=== PATIENT | female | born 1990 | race Two or more races ===

== ENCOUNTER → 2020-06-02 09:12 | Outpatient (BNVA) | payer MEDICAID, SELFPAY | PROVIDERS: Visit Provider Physician Assistant | DX: E66.01 Morbid (severe) obesity due to excess calories (principal); Z68.42 Body mass index [BMI] 45.0-49.9, adult; G47.33 Obstructive sleep apnea (adult) (pediatric) | CPT/HCPCS: 99214; Q3014 ==

== ENCOUNTER → 2020-06-15 09:37 | Outpatient (BNVA) | payer MEDICAID, SELFPAY | PROVIDERS: Visit Provider Physician Assistant | DX: E66.01 Morbid (severe) obesity due to excess calories (principal); D64.9 Anemia, unspecified | CPT/HCPCS: 99213 ==

== ENCOUNTER → 2020-08-11 11:18 | Outpatient (BNVA) | payer MEDICAID, SELFPAY | PROVIDERS: PCP Nurse Practitioner Primary Care; Referring Provider Nurse Practitioner Primary Care; Visit Provider Surgery Vascular Surgery | DX: I83.12 Varicose veins of left lower extremity with inflammation (principal) | CPT/HCPCS: 99202 ==

== ENCOUNTER 2020-09-05 14:58 | Emergency (ER) | payer MEDICAID, SELFPAY ==
[2020-09-05 16:13] VITALS: BP 141/111; PULSE 87; RESP 20; TEMP 36.6; O2SAT 99; BMI 43.9
--- NOTE | 2020-09-05 16:48 | XR_ITS ---
EXAMINATION: XR CHEST CLINICAL INFORMATION: Cough. Covid exposure. COMPARISON: Previous chest x-ray most recent January 2019 TECHNIQUE: Frontal view of the chest was obtained. FINDINGS: The cardiac and mediastinal contours are normal. The lung volumes are low. The lungs are clear. There is no pleural effusion or pneumothorax. Bony structures are unremarkable. XR/XR chest 1V IMPRESSION: Low lung volumes. No evidence of pneumonia.
--- NOTE | 2020-09-05 16:53 | ED_ITS ---
HPI - General Adult General Chief complaint: Upper Respiratory Symptoms Stated complaint: cough,covid symptoms Time Seen by Provider: 09/05/20 16:15 Source: patient Mode of arrival: ambulatory History of Present Illness HPI narrative: Patient comes emergency room complaining of flu-like symptoms, body aches, chills, subjective fever. Patient states that she has known exposure to COVID-19 patients. All her symptoms have been ongoing for 3 days, complaining of cough, no shortness of breath MD complaint: Flu-like symptoms Related Data Home Medications Medication Instructions Recorded Confirmed acetaminophen 500 mg tablet 500 mg PO QID PRN 06/01/20 06/15/20 albuterol sulfate 90 mcg/actuation 1 inh INHALATION QID 06/01/20 06/15/20 aerosol inhaler azelastine 0.15 % (205.5 mcg) 1 spray INTRANASAL BID 06/01/20 06/15/20 nasal spray cholecalciferol (vitamin D3) 25 25 mcg PO DAILY 06/01/20 06/15/20 mcg (1,000 unit) capsule diphenhydramine HCl 25 mg tablet 25 mg PO BEDTIME 06/01/20 06/15/20 famotidine 40 mg tablet 40 mg PO DAILY 06/01/20 06/15/20 fluoxetine 40 mg capsule 40 mg PO DAILY 06/01/20 06/15/20 fluticasone propionate 100 1 inh INHALATION Q12H 06/01/20 06/15/20 mcg/actuation blister powder for inhalation ipratropium bromide 0.03 % nasal 2 spray INTRANASAL BID 06/01/20 06/15/20 spray levothyroxine 200 mcg capsule 200 mcg PO DAILY 06/01/20 06/15/20 loratadine 10 mg capsule 10 mg PO DAILY 06/01/20 06/15/20 mecobalamin (vitamin B12) 1,000 1,000 mcg PO DAILY 06/01/20 06/15/20 mcg chewable tablet montelukast 10 mg tablet 10 mg PO BEDTIME 06/01/20 06/15/20 omeprazole 20 mg capsule,delayed 20 mg PO DAILY 06/01/20 06/15/20 release psyllium 1 packet PO TID 06/01/20 06/15/20 risperidone 3 mg tablet 3 mg PO DAILY 06/01/20 06/15/20 trazodone 100 mg tablet 100 mg PO DAILY 06/01/20 06/15/20 Previous Rx's Medication Instructions Recorded iron,carbonyl 65 mg-vitamin C 125 1 tab PO DAILY #60 tab 07/07/20 mg tablet,delayed release iron,carbonyl 65 mg-vitamin C 125 1 tab PO DAILY #60 tab 07/15/20 mg tablet,delayed release ondansetron HCl [Zofran] 4 mg PO Q6H PRN #14 tab 09/05/20 Allergies Allergy/AdvReac Type Severity Reaction Status Date / Time Pt states no known allergy to Allergy Unknown Unknown Uncoded 08/11/20 11:30 Review of Systems Review of Systems: Constitutional : Complaining of chills, subjective fever ENT/Mouth : No Hearing loss, No Ear Pain, No Nasal Congestion, No Sinus Pain, No Hoarseness, No sore throat, No Rhinorrhea, No Swallowing Difficulty Eyes: No Eye Pain, No Swelling, No Redness, No Foreign Body, No Discharge, No Vision Changes Cardiovascular : No Chest Pain, No SOB, No Dyspnea on Exertion, No Orthopnea, No Edema, No Palpitations Respiratory : Complaining of dry Cough, No Sputum, No Wheezing, No Smoke Exposure, No Dyspnea Gastrointestinal : Complaining of nausea with no Vomiting, No Diarrhea, No Constipation, No abdominal Pain, No Hematochezia, No Melena Genitourinary : no irregular bleeding, No Dysuria, No Urinary Frequency, No Hematuria, No Urinary Incontinence, No Urgency, No Flank Pain, No Urinary Flow Changes, No Hesitancy Musculoskeletal : No joint pain, complaining of generalized Myalgias, No Joint Swelling Skin : No Skin Lesions, No rash Neuro : No Weakness, No Numbness, No Paresthesias, No Loss of Consciousness, No Dizziness, No Headache Psych : No Anxiety/Panic, No Depression, No SI/HI/AH/VH, No Social Issues, Heme/Lymph: No Bruising, No Bleeding,No Lymphadenopathy Endocrine : No Polyuria, No Polydipsia, No Temperature Intolerance PMFSH Past Medical History Medical History ADHD Depression Hypothyroid Morbid obesity Obstructive sleep apnea Rheumatoid arthritis Varicose veins of bilateral lower extremities with other complications Surgical History H/O prior ablation treatment (~2018) History of vein stripping (~2018) Hx of thyroidectomy Family History Family History Father No problems noted. Mother No problems noted. Brother No problems noted. Brother No problems noted. Brother No problems noted. Social History Social History Alcohol intake: unknown Smoking Status: Never smoker Advance Directives: No Advance Directives Information Provided: No Physical Exam Vital Signs: Vital Signs: Last Vital Signs Temp 97.9 F 09/05/20 16:13 Pulse 87 09/05/20 16:13 Resp 20 09/05/20 16:13 BP 141/111 H 09/05/20 16:13 Pulse Ox 99 09/05/20 16:13 Body Mass Index 43.9 Appearance: Alert. Oriented X3. No acute distress. Eyes: Pupils equal, round and reactive to light. ENT: Pharynx normal. Neck: Normal inspection. Neck supple. No lymph nodes noted. No crepitus CVS: Normal heart rate and rhythm. Pulses normal. Normal S1 and S2 Respiratory: No respiratory distress. Breath sounds normal. No Wheezing. No rales Abdomen: Soft and nontender. No rigidity. No distention. good BS x4 Skin: Skin warm and dry. Normal skin color. Normal skin turgor. Extremities: No lower extremity edema. No lower extremity edema. No Lacerations. No Rash Neuro: Oriented X 3. No motor deficit. No sensory deficit. Moving all extermities. No slurred speech. Course Course Course Narrative: I discussed with the patient that she tested positive for COVID-19. Patient will be discharged home. Patient states that she does not need a work excuse. Patient instructed to stay at home for 14 days and self- isolation Medical Decision Making Lab Data Labs: Lab Results 09/05/20 Range/Units 17:07 Coronavirus (PCR) POSITIVE A (Negative) Influenza Type A (PCR) NEGATIVE (Negative) Influenza Type B (PCR) NEGATIVE (Negative) RSV RNA Qual (PCR) NEGATIVE (Negative) Imaging Data Chest x-ray: Radiologist's impression: The cardiac and mediastinal contours are normal. The lung volumes are low. The lungs are clear. There is no pleural effusion or pneumothorax. Bony structures are unremarkable. XR/XR chest 1V IMPRESSION: Low lung volumes. No evidence of pneumonia. Discharge Plan Discharge Clinical Impression: COVID-19 Patient Disposition: Home, Self-Care Instructions: COVID-19 (Coronavirus Disease 2019) (ED) Additional Instructions: If you have any worsening shortness of breath, any new symptoms, please return to the emergency room or call 911. You need to stay self isolated for 14 days. Please follow-up with your primary care physician. Prescriptions: New ondansetron HCl [Zofran] 4 mg tablet 4 mg PO Q6H PRN (Reason: nausea and vomiting) Qty: 14 RF: 0 No Action iron,carbonyl-vitamin C [Vitron-C] 65 mg iron- 125 mg tablet,delayed release (DR/EC) 1 tab PO DAILY Qty: 60 RF: 1 iron,carbonyl-vitamin C [Vitron-C] 65 mg iron- 125 mg tablet,delayed release (DR/EC) 1 tab PO DAILY Qty: 60 RF: 6 fluoxetine 40 mg capsule 40 mg PO DAILY RF: 0 trazodone 100 mg tablet 100 mg PO DAILY RF: 0 risperidone 3 mg tablet 3 mg PO DAILY RF: 0 Flovent Diskus 100 mcg/actuation blister with device 1 inh inhalation Q12H RF: 0 ipratropium bromide 0.03 % spray,non-aerosol 2 spray intranasal BID RF: 0 omeprazole 20 mg capsule,delayed release(DR/EC) 20 mg PO DAILY RF: 0 azelastine 0.15 % (205.5 mcg) spray,non-aerosol 1 spray intranasal BID RF: 0 diphenhydramine HCl [Benadryl Allergy] 25 mg tablet 25 mg PO BEDTIME RF: 0 famotidine 40 mg tablet 40 mg PO DAILY RF: 0 loratadine 10 mg capsule 10 mg PO DAILY RF: 0 psyllium Packet 1 packet PO TID RF: 0 albuterol sulfate [ProAir HFA] 90 mcg/actuation HFA aerosol inhaler 1 inh inhalation QID RF: 0 montelukast [Singulair] 10 mg tablet 10 mg PO BEDTIME RF: 0 acetaminophen [Tylenol Extra Strength] 500 mg tablet 500 mg PO QID PRNRF: 0 mecobalamin (vitamin B12) 1,000 mcg tablet,chewable 1,000 mcg PO DAILY RF: 0 cholecalciferol (vitamin D3) 25 mcg (1,000 unit) capsule 25 mcg PO DAILY RF: 0 Tirosint 200 mcg capsule 200 mcg PO DAILY RF: 0
[2020-09-05] MEDS: ondansetron HCL 4 MG/2 ML VIAL IVPUSH (17:26)
[2020-09-05] MEDS: 0.9 % Sodium Chloride 1,000 ML 999 ML IVCONT (17:26)
[2020-09-05 18:10] LABS: Influenza A PCR NEGATIVE (Negative); Influenza B PCR NEGATIVE (Negative); Resp Syncy Virus RNA Qual PCR NEGATIVE (Negative); SARS COV2 PCR INHOUSE POSITIVE (Negative)
== END 2020-09-05 19:05 | disposition home or self-care (01) ==
PROVIDERS: Emergency Provider Emergency Medicine; PCP Nurse Practitioner Primary Care
DX: U07.1 COVID-19 (principal)
CPT/HCPCS: 0241U; 36415; 71045; 96361; 96374; 99283; 99284; J2405

== ENCOUNTER → 2020-09-20 15:23 | Outpatient (BNVA) | payer MEDICAID, SELFPAY | PROVIDERS: PCP Nurse Practitioner Primary Care; Visit Provider Nurse Practitioner Family ==

== ENCOUNTER → 2020-10-12 09:16 | Outpatient (BNVA) | payer MEDICAID, SELFPAY | PROVIDERS: Visit Provider Nurse Practitioner Gerontology ==

== ENCOUNTER → 2020-10-18 14:57 | Outpatient (BNVA) | payer MEDICAID, SELFPAY | PROVIDERS: Visit Provider Nurse Practitioner Family ==

== ENCOUNTER 2020-10-26 15:48 | Emergency (ER) | payer MEDICAID, SELFPAY ==
[2020-10-26 18:02] VITALS: BP 120/65; PULSE 98; RESP 16; TEMP 36.9; O2SAT 100; BMI 43.5
--- NOTE | 2020-10-26 18:23 | ED_ITS ---
HPI - General Adult General Chief complaint: Extremity Injury, Lower Stated complaint: redness on leg (varicose veins) Time Seen by Provider: 10/26/20 18:04 Source: patient Mode of arrival: ambulatory Limitations: no limitations History of Present Illness HPI narrative: 30 yo female with past medical history of hypothyroidism, anemia, morbid obesity, RA, COLLETTE, ADHD, depression, varicose veins here with complaints o f right leg erythema, burning and warmth x 48hrs. No fevers, chills. No injury or trauma. No pain in the calf. No shortness of breath or chest pain. Related Data Home Medications Medication Instructions Recorded Confirmed acetaminophen 500 mg tablet 500 mg PO QID PRN 06/01/20 09/20/20 albuterol sulfate 90 mcg/actuation 1 inh INHALATION QID 06/01/20 09/20/20 aerosol inhaler azelastine 0.15 % (205.5 mcg) 1 spray INTRANASAL BID 06/01/20 09/20/20 nasal spray diphenhydramine HCl 25 mg tablet 25 mg PO BEDTIME 06/01/20 09/20/20 famotidine 40 mg tablet 40 mg PO DAILY 06/01/20 09/20/20 fluoxetine 40 mg capsule 40 mg PO DAILY 06/01/20 09/20/20 fluticasone propionate 100 1 inh INHALATION Q12H 06/01/20 09/20/20 mcg/actuation blister powder for inhalation ipratropium bromide 0.03 % nasal 2 spray INTRANASAL BID 06/01/20 09/20/20 spray loratadine 10 mg capsule 10 mg PO DAILY 06/01/20 09/20/20 mecobalamin (vitamin B12) 1,000 1,000 mcg PO DAILY 06/01/20 09/20/20 mcg chewable tablet montelukast 10 mg tablet 10 mg PO BEDTIME 06/01/20 09/20/20 omeprazole 20 mg capsule,delayed 20 mg PO DAILY 06/01/20 06/15/20 release psyllium 1 packet PO TID 06/01/20 09/20/20 risperidone 3 mg tablet 3 mg PO DAILY 06/01/20 09/20/20 trazodone 100 mg tablet 100 mg PO DAILY 06/01/20 09/20/20 Previous Rx's Medication Instructions Recorded iron,carbonyl 65 mg-vitamin C 125 1 tab PO DAILY #60 tab 07/15/20 mg tablet,delayed release ondansetron HCl [Zofran] 4 mg PO Q6H PRN #14 tab 09/05/20 Tirosint 200 mcg capsule 200 mcg PO DAILY #30 cap NS 10/05/20 cholecalciferol (vitamin D3) 25 25 mcg PO DAILY #30 cap 10/07/20 mcg (1,000 unit) capsule Tirosint 50 mcg capsule 50 mcg PO DAILY 30 Days #30 cap NS 10/12/20 linaclotide 145 mcg capsule 145 mcg PO DAILY #30 cap 10/18/20 doxycycline monohydrate 100 mg PO BID #14 cap 10/26/20 Allergies Allergy/AdvReac Type Severity Reaction Status Date / Time No Known Allergies Allergy Verified 10/26/20 18:09 Review of Systems Review of Systems: Yes all other systems are reviewed and are negative Constitutional: Constitutional: Reports no additional constitutional complaints, Denies body ache(s), Denies chills, Denies fever(s), Denies headache(s) and Denies weakness Eyes: Eyes: Reports no additional eye complaints and Denies change in vision ENT: Reports system reviewed and no additional complaints, except as documented, Denies dizziness, Denies headache(s), Denies nasal congestion, Denies nasal discharge and Denies neck pain Cardiovascular: Cardiovascular: Reports no additional cardiovascular complaints, Denies chest pain, Denies leg edema and Denies dyspnea Respiratory: Respiratory: Reports no additional respiratory complaints, Denies cough and Denies dyspnea Gastrointestinal: Gastrointestinal: Reports no additional gastrointestinal complaints, Denies abdominal pain, Denies diarrhea, Denies nausea and Denies vomiting Genitourinary: Genitourinary: Reports no additional female genitourinary complaints and Denies urinary incontinence Musculoskeletal: Musculoskeletal: Reports no additional musculoskeletal complaints, Denies back pain, Denies arthralgias, Denies joint swelling, Denies neck pain, Denies numbness and Denies tingling Integumentary/Breasts: Skin/Breast: Reports system reviewed and no additional complaints, except as docu, Reports swelling, Reports erythema and Denies rash Neurologic: Reports system reviewed and no additional complaints, except as documented, Denies Abnormal speech present, Denies dizziness, Denies headache(s), Denies numbness, Denies tingling and Denies weakness PMFSH Past Medical History Attestation statement: The following information was validated with the patient. Source: old records reviewed and nursing notes reviewed Medical History ADHD Constipation Depression Elevated liver enzymes Hypothyroid Morbid obesity Obstructive sleep apnea Post-surgical hypothyroidism Rheumatoid arthritis Varicose veins of bilateral lower extremities with other complications Surgical History H/O prior ablation treatment (~2017) History of vein stripping (~2017) Hx of thyroidectomy Family History Family History Father No problems noted. Mother No problems noted. Brother No problems noted. Brother No problems noted. Brother No problems noted. Social History Social History Household Members: Family Alcohol intake: never Smoking Status: Never smoker Smoked in Last 30 Days: No Use of substances other than those prescribed or required for medical reasons: No Any prior treatment program specific to substance use: No Advance Directives: No Advance Directives Information Provided: Yes Current occupational status: unemployed Physical Exam Vital Signs: Vital Signs: Last Vital Signs Temp 98.5 F 10/26/20 18:02 Pulse 98 10/26/20 18:02 Resp 16 10/26/20 18:02 BP 120/65 10/26/20 18:02 Pulse Ox 100 10/26/20 18:02 Body Mass Index 43.5 Const: General: cooperative, healthy appearing, comfortable and no acute distress Orientation/consciousness: patient oriented x3 Limitations: no l imitations HENMT: Head: Yes normal to inspection Ears: hearing grossly normal bilaterally General nose exam: Normal external nose present Face and sinus: Yes normal facial exam Mouth: Normal oral and palatal mucosa present Throat: Yes posterior oropharynx normal Eyes: General: appearance normal, both eyes and all related structures Pupils: Equal, round and reactive pupils present Neck: Neck: Yes normal visual inspection Chest: Chest palpation & inspection: normal inspection of the chest Resp: Effort & Inspection: normal respiratory effort Auscultation: clear to auscultation bilaterally Cardio: Rate: regular rate Rhythm: regular rhythm Peripheral pulses: Peripheral pulses 2+ throughout GI: Inspection: Yes normal to inspection Palpation (GI): Soft to palpation and nontender Auscultation: normal bowel sounds Back/Spine/Pelvis: Thoracic/Lumbar Spine: thoracic and lumbar spine normal to inspection Skin: Other: To the right distal lower extremity there is a area of erythema and warmth which is not circumferential. There is no open wound or perforation noted. There is some warmth over the site. No calf pain or tenderness or swelling. Distal pulses noted General skin exam: no rashes or lesions noted Neuro: General: patient oriented x3, no focal motor deficits and normal sensation to monofilament Cranial nerves: Yes Equal, round and reactive pupils present Cognition (Neuro): normal cognition Speech: No Abnormal speech present Gait exam (Neuro): Normal gait present Motor exam (neuro): 5/5 motor strength present throughout Extrem: General: Yes normal to inspection Course Course Course Narrative: Patient has what appears to be in early cellulitis the right lower extremity. No systemic signs or symptoms of infection. She also has varicose veins which are chronic for her. I did recommend that she follow up with Dr. Scott who she has seen before for this. Reviewed worrisome signs and symptoms and when to return to the emergency department. Comfortable discharge home. Discharge Plan Discharge Clinical Impression: Cellulitis Qualifiers: Site of cellulitis: extremity Site of cellulitis of extremity: lower extremity Laterality: right Qualified Code(s): L03.115 - Cellulitis of right lower limb Patient Disposition: Home, Self-Care Instructions: Cellulitis (ED) Additional Instructions: Buy compression stockings and where them every day Elevate your extremities Follow-up with Dr Razo as discussed Return for increasing redness, fever >100.4 Prescriptions: New doxycycline monohydrate 100 mg capsule 100 mg PO BID Qty: 14 RF: 0 No Action iron,carbonyl-vitamin C [Vitron-C] 65 mg iron- 125 mg tablet,delayed release (DR/EC) 1 tab PO DAILY Qty: 60 RF: 6 levothyroxine [Tirosint] 200 mcg capsule 200 mcg PO DAILY Qty: 30 RF: 6 cholecalciferol (vitamin D3) [Vitamin D3] 25 mcg (1,000 unit) capsule 25 mcg PO DAILY Qty: 30 RF: 6 levothyroxine [Tirosint] 50 mcg capsule 50 mcg PO DAILY 30 Days Qty: 30 RF: 6 ondansetron HCl [Zofran] 4 mg tablet 4 mg PO Q6H PRN (Reason: nausea and vomiting) Qty: 14 RF: 0 fluoxetine 40 mg capsule 40 mg PO DAILY RF: 0 trazodone 100 mg tablet 100 mg PO DAILY RF: 0 risperidone 3 mg tablet 3 mg PO DAILY RF: 0 Flovent Diskus 100 mcg/actuation blister with device 1 inh inhalation Q12H RF: 0 ipratropium bromide 0.03 % spray,non-aerosol 2 spray intranasal BID RF: 0 omeprazole 20 mg capsule,delayed release(DR/EC) 20 mg PO DAILY RF: 0 azelastine 0.15 % (205.5 mcg) spray,non-aerosol 1 spray intranasal BID RF: 0 diphenhydramine HCl [Benadryl Allergy] 25 mg tablet 25 mg PO BEDTIME RF: 0 famotidine 40 mg tablet 40 mg PO DAILY RF: 0 loratadine 10 mg capsule 10 mg PO DAILY RF: 0 psyllium Packet 1 packet PO TID RF: 0 albuterol sulfate [ProAir HFA] 90 mcg/actuation HFA aerosol inhaler 1 inh inhalation QID RF: 0 montelukast [Singulair] 10 mg tablet 10 mg PO BEDTIME RF: 0 acetaminophen [Tylenol Extra Strength] 500 mg tablet 500 mg PO QID PRNRF: 0 mecobalamin (vitamin B12) 1,000 mcg tablet,chewable 1,000 mcg PO DAILY RF: 0 Linzess 145 mcg capsule 145 mcg PO DAILY Qty: 30 RF: 2 Referrals: Paulo Razo MD [Physician] - 2 days Interventions: ED Discharge Assessment Last Done: 10/26/20 19:21 Discharge Date/Time: 10/26/20 18:38
== END 2020-10-26 18:38 | disposition home or self-care (01) ==
PROVIDERS: Emergency Provider Emergency Medicine; PCP Nurse Practitioner Primary Care
DX: L03.115 Cellulitis of right lower limb (principal); I83.893 Varicose veins of bilateral lower extremities with other complications; E66.01 Morbid (severe) obesity due to excess calories; Z79.899 Other long term (current) drug therapy
CPT/HCPCS: 99283; 99284

== ENCOUNTER 2020-10-31 12:27 | Outpatient (REF) | payer MEDICAID, SELFPAY ==
--- NOTE | ~2020-10-31 | US_ITS ---
EXAMINATION: RIGHT and LEFT LOWER EXTREMITY VENOUS ULTRASOUND (Reflux Exam) CLINICAL INDICATION: Varicose veins of the left lower extremity. Post bilateral vein surgery. COMPARISON: None. TECHNIQUE: Color flow triplex imaging and compression Doppler was performed to evaluate both the deep and the superficial systems bilaterally. To evaluate the superficial system, the examination was performed in the upright position. Color-flow Doppler ultrasound and compression ultrasound were utilized. In addition, maneuvers were utilized to demonstrate reflux. FINDINGS: 1. DEEP VENOUS ULTRASOUND OF THE RIGHT LOWER EXTREMITY: Respiratory variation, normal compression and augmented flow are noted in the right common femoral vein as well as the right popliteal vein and there is no evidence of deep venous thrombosis at these locations. There is no evidence of reflux in the deep system in either the common femoral vein or the popliteal vein. There is no evidence of a Olmstead's cyst. 2. SUPERFICIAL ULTRASOUND WITH DOPPLER OF RIGHT LOWER EXTREMITY: The right great saphenous vein at the saphenofemoral junction measures 7 mm, at the proximal thigh 5 mm,, remnant at the mid thigh 1 mm, at mid calf 3 mm and at the ankle measures 3 mm. There is a 1.6 seconds reflux in the mid calf and 2.4 seconds reflux at the ankle. The right small saphenous vein measures 3-4 mm and demonstrates 3.3 seconds reflux at the saphenopopliteal junction and 1 second reflux in the distal calf. 3. DEEP VENOUS ULTRASOUND OF THE LEFT LOWER EXTREMITY: Respiratory variation, normal compression and augmented flow are noted in the left common femoral vein as well as the left popliteal vein and there is no evidence of deep venous thrombosis at these locations. There is no evidence of reflux in the deep system in either the common femoral vein or the popliteal vein. . There is no evidence of a Olmstead's cyst. 4. SUPERFICIAL ULTRASOUND WITH DOPPLER OF LEFT LOWER EXTREMITY: Left great saphenous vein at the saphenofemoral junction measures 8 mm, at the mid thigh 4 mm,, right at mid calf 1 mm and at the ankle measures 2 mm. There is no reflux demonstrated in the left great saphenous vein. The left small saphenous vein measures 2 mm and shows no reflux. US/US venous duplex LE BI IMPRESSION: 1. No evidence of reflux or thrombus in the common, femoral veins or popliteal veins bilaterally. 2. Bilateral greater saphenous vein surgery. Reflux in the right greater saphenous vein in the mid calf measuring 1.6 seconds and at the ankle measuring 2.4 seconds. Reflux in the right lesser saphenous vein measuring 3.3 seconds in at the saphenopopliteal junction and 1 second in the distal calf. No left lower extremity saphenous vein reflux seen.
== END 2020-10-31 12:28 | disposition home or self-care (01) ==
LOC: HO.US 12:27
PROVIDERS: Visit Provider Surgery Vascular Surgery
DX: I87.2 Venous insufficiency (chronic) (peripheral) (principal)
CPT/HCPCS: 93970

== ENCOUNTER 2020-12-07 15:57 | Emergency (ER) | payer MEDICAID, SELFPAY ==
--- NOTE | ~2020-12-07 | US_ITS ---
EXAMINATION: US ABDOMEN COMPLETE CLINICAL INFORMATION: Abdominal/back pain with elevated LFTs. COMPARISON: Ultrasound abdomen 10/24/[address] abdomen pelvis 02/12/2013 TECHNIQUE: Real-time imaging of the abdominal viscera. FINDINGS: PANCREAS: Normal. ABDOMINAL AORTA: The proximal, mid, and distal segments are normal in caliber. INFERIOR VENA CAVA: Visualized portions are normal. LIVER: The liver is enlarged and demonstrates increased echogenicity consistent with hepatic steatosis. No focal hepatic lesion. There is no intrahepatic biliary duct dilatation seen. GALLBLADDER: The gallbladder is physiologically distended without evidence of stones, sludge, polyps, wall thickening or pericholecystic fluid. COMMON BILE DUCT: Normal in caliber measuring 0.3 cm in diameter. RIGHT KIDNEY: 12.0 No hydronephrosis. No renal calculi or focal parenchymal lesions. The kidney measures 12.0 cm in maximum dimension. LEFT KIDNEY: Again noted is a lower pole pelvocaliectasis which has been noted in the past and is unchanged when compared to 2018 study. This could even be seen on the CT scan dating back to 02/12/2013. I suspect that this may represent parapelvic cysts rather than pelvocaliectasis. No renal calculi or focal parenchymal lesions. The kidney measures 11.4 cm in maximum dimension. SPLEEN: Normal. The spleen measures 12.3 cm in maximum dimension. FREE FLUID: None. US/US abdomen complete IMPRESSION: Enlarged fatty liver Caliectasis again noted left lower pole which is a chronic finding. I suspect that this is probably related to parapelvic cysts mimicking hydronephrosis.
[2020-12-07 16:00] VITALS: BP 121/70; PULSE 18; RESP 20; O2SAT 97; BMI 43.5
[2020-12-07 16:50] LABS: Hemoglobin 7.4 g/dl (12.0-16.0); SCAN SMEAR FLAG 1
[2020-12-07 16:52] LABS: Basophils Absolute Auto 0.1 X10*3/uL (0.0-0.2); Basophils Percent Auto 0.6 % (0-2); Eosinophils Absolute Auto 0.1 X10*3/uL (0.0-0.4); Eosinophils Percent Auto 1.4 % (0-4); Hematocrit 26.8 % (37-47); Imm Gran Abs Auto 0.03 X10*3/uL (0.00-0.03); Imm Gran Pct Auto 0.3 % (0.0-0.4); Lymphocytes Absolute Auto 2.1 X10*3/uL (1.2-4.9); Mean Corpuscular HGB Conc 27.6 g/dl (31.0-35.0); Mean Corpuscular Hemoglobin 18.5 pg (27.0-33.0); Mean Corpuscular Volume 67.2 fL (80-98); Monocytes Absolute Auto 0.8 X10*3/uL (0.1-1.2); Monocytes Percent Auto 7.7 % (2-11); Neutrophils Absolute Auto 6.9 X10*3/uL (2.0-8.3); Platelet Count 175 X10*3/uL (160-400); Red Blood Count 3.99 X10*6/uL (4.20-5.50)
[2020-12-07 16:53] LABS: PLT ABN DIST 1
[2020-12-07 16:56] LABS: Glucose Urine UA NEG (NEG); Leukocyte Esterase Urine 1+ (NEG); Nitrite Urine NEG (NEG); UACC Culture Trigger YES; Urine Blood 1+ (NEG); Urine Ketones NEG (NEG); Urine Protein NEG (NEG-TRACE)
[2020-12-07 16:59] LABS: Appearance Urine CLEAR; Color Urine YELLOW
[2020-12-07 17:10] LABS: Bacteria Urine 2+ /LPF; Squamous Epithelial Cell Urine 2+ /LPF
[2020-12-07 17:11] LABS: UPreg QC Valid YES; Urine Pregnancy NEGATIVE (NEGATIVE)
[2020-12-07 17:19] LABS: Alanine Aminotransferase 90 U/L (0-31); Albumin Level 4.4 g/dL (3.5-5.0); Alkaline Phosphatase 70 U/L (39-117); Anion Gap 13 (12-20); Aspartate Amino Transferase 106 U/L (5-31); Bilirubin Total 0.4 mg/dL (0.0-1.0); Blood Urea Nitrogen 13 mg/dL (9-16); Calcium 8.5 mg/dL (8.4-10.2); Carbon Dioxide 22 mmol/L (22-29); Chloride 105 mmol/L (96-108); Creatinine Clr Calc Pharmacy 121.5; Estimated Glomerular Filt Rate > 60; Glucose Random 105 mg/dL (60-115); Potassium 3.7 mmol/L (3.3-5.1); Sodium 136 mmol/L (135-145); Total Protein 7.9 g/dL (6.5-8.0)
--- NOTE | 2020-12-07 17:20 | ED.FEMALEGU ---
HPI - Female Genitourinary General Chief complaint: Urogenital-Female Stated complaint: ?UTI Time Seen by Provider: 12/07/20 17:20 Source: patient Mode of arrival: ambulatory Limitations: no limitations History of Present Illness HPI Narrative: 30-year-old female came in a room with 1 month history of low back pain, patient was seen and evaluated by her primary doctor who diagnosed her with UTI, patient was started on Bactrim and also was prescribed Macrobid. A month of left lower back pain, associated with intermittent epigastric abdominal pain, no nausea, no vomiting, normal appetite and p.o. intake, patient just finish antibiotic course for urinary tract infection with persistent of the back pain. No dysuria, no non frequency in Related Data Home Medications Medication Instructions Recorded Confirmed acetaminophen 500 mg tablet 500 mg PO QID PRN 06/01/20 09/20/20 albuterol sulfate 90 mcg/actuation 1 inh INHALATION QID 06/01/20 09/20/20 aerosol inhaler azelastine 205.5 mcg (0.15 %) 1 spray INTRANASAL BID 06/01/20 09/20/20 nasal spray diphenhydramine HCl 25 mg tablet 25 mg PO BEDTIME 06/01/20 09/20/20 famotidine 40 mg tablet 40 mg PO DAILY 06/01/20 09/20/20 fluoxetine 40 mg capsule 40 mg PO DAILY 06/01/20 09/20/20 fluticasone propionate 100 1 inh INHALATION Q12H 06/01/20 09/20/20 mcg/actuation blister powder for inhalation ipratropium bromide 21 mcg (0.03 2 spray INTRANASAL BID 06/01/20 09/20/20 %) nasal spray loratadine 10 mg capsule 10 mg PO DAILY 06/01/20 09/20/20 mecobalamin (vitamin B12) 1,000 1,000 mcg PO DAILY 06/01/20 09/20/20 mcg chewable tablet montelukast 10 mg tablet 10 mg PO BEDTIME 06/01/20 09/20/20 omeprazole 20 mg capsule,delayed 20 mg PO DAILY 06/01/20 06/15/20 release psyllium 1 packet PO TID 06/01/20 09/20/20 risperidone 3 mg tablet 3 mg PO DAILY 06/01/20 09/20/20 trazodone 100 mg tablet 100 mg PO DAILY 06/01/20 09/20/20 Previous Rx's Medication Instructions Recorded iron,carbonyl 65 mg-vitamin C 125 1 tab PO DAILY #60 tab 07/15/20 mg tablet,delayed release ondansetron HCl [Zofran] 4 mg PO Q6H PRN #14 tab 09/05/20 Tirosint 200 mcg capsule 200 mcg PO DAILY #30 cap NS 10/05/20 cholecalciferol (vitamin D3) 25 25 mcg PO DAILY #30 cap 10/07/20 mcg (1,000 unit) capsule Tirosint 50 mcg capsule 50 mcg PO DAILY 30 Days #30 cap NS 10/12/20 linaclotide 145 mcg capsule 145 mcg PO DAILY #30 cap 10/18/20 doxycycline monohydrate 100 mg PO BID #14 cap 10/26/20 cefuroxime axetil 500 mg PO Q12H #14 tab 12/07/20 Allergies Allergy/AdvReac Type Severity Reaction Status Date / Time No Known Allergies Allergy Verified 10/26/20 18:09 Review of Systems Review of Systems: All other systems are reviewed and are negative Constitutional: Reports as per HPI and Reports no additional constitutional complaints Eyes: Reports as per HPI and Reports no additional eye complaints Reports system reviewed and no additional complaints, except as documented Cardiovascular: Reports as per HPI and Reports no additional cardiovascular complaints Respiratory: Reports as per HPI and Reports no additional respiratory complaints Gastrointestinal: Reports as per HPI and Reports no additional gastrointestinal complaints Genitourinary: Reports no additional female genitourinary complaints Musculoskeletal: Reports no additional musculoskeletal complaints Skin/Breast: Reports system reviewed and no additional complaints, except as docu Psychiatric: Reports no additional psychiatric complaints Endocrine: Reports no additional endocrine complaints Hematologic/Lymphatic: Reports no additional hematologic/lymphatic complaints Allergic/Immunologic: Reports no additional allergic/immunologic complaints Reports system reviewed and no additional complaints, except as documented and Reports Abnormal speech present FORMERLY [facility], [facility] Past Medical History Medical History ADHD Constipation Depression Elevated liver enzymes Hypothyroid Morbid obesity Obstructive sleep apnea Post-surgical hypothyroidism Rheumatoid arthritis Varicose veins of bilateral lower extremities with other complications Surgical History H/O prior ablation treatment (~2017) History of vein stripping (~2017) Hx of thyroidectomy Family History Family History Father No problems noted. Mother No problems noted. Brother No problems noted. Brother No problems noted. Brother No problems noted. Social History Social History Household Members: Family Alcohol intake: never Smoking Status: Never smoker Smoked in Last 30 Days: No Use of substances other than those prescribed or required for medical reasons: No Any prior treatment program specific to substance use: No Advance Directives: No Advance Directives Information Provided: Yes Current occupational status: unemployed Physical Exam Vital Signs: Vital Signs: Last Vital Signs Pulse 18 L 12/07/20 16:00 Resp 20 12/07/20 16:00 BP 121/70 12/07/20 16:00 Pulse Ox 97 12/07/20 16:00 Body Mass Index 43.5 Vital signs have been reviewed as appeared to be correct. Blood pressure normal. Heart rate normal. Respiration rate normal. Temperature normal. Oxygen saturation normal. Appearance: Alert. Oriented X3. No acute distress. Head: Normal external exam. Normocephalic. Atraumatic. No Onofre signs noted. No raccoon eyes noted Eyes: PERRLA. EOMI. Conjunctiva and sclera normal. Eyelids normal. ENT: TM's Normal. Pharynx normal. Uvula midline. Moist mucous membranes. No trismus noted. No drooling noted. No muffled voice noted. Neck: Normal inspection. Neck supple. FROM. No adenopathy. Thyroid Normal. No meningeal signs. No neck mass noted. CVS: Normal heart rate and rhythm. Heart sound normal. No murmurs noted. Pulses normal throughout. Respiratory: No respiratory distress. Painless inspiration. Breath sounds normal. No wheezes/rales/rhonchi noted. Chest nontender. No accessory muscle usage noted or decreased air movement noted. Abdomen: Soft and nontender. Bowel sounds normal in all 4 quadrants. No distention noted. No organomegaly noted. No visible injury noted. Back: No CVA tenderness. Full range of motion noted. Skin: Skin warm and dry. Normal skin color. Normal skin turgor. No rashes/lesions/lacerations noted. Extremities: No lower extremity edema. Extremities exhibit normal range of motion. Extremities nontender. Neuro: Oriented X 3. No motor deficit. No sensory deficit. Reflexes normal. Course Course Course Narrative: Assessment and plan. 30-year-old female came with back pain received antibiotic via her primary doctor for UTI, because persistent of the back pain patient's concern of UTI, urine is showing new cuts trees and WBCs will start the patient on cefuroxime for 7 days and drink plenty of fluids. MDM - Female Genitourinary Lab Data Attestation: I reviewed the patient's lab results. Result diagrams: 12/07/20 16:35 12/07/20 16:35 Labs: Lab Results 12/07/20 12/07/20 12/07/20 Range/Units 16:35 16:35 16:35 WBC 10.0 (4.8-10.8) X10*3/uL RBC 3.99 L (4.20-5.50) X10*6/uL Hgb 7.4 L (12.0-16.0) g/dl Hct 26.8 L (37-47) % MCV 67.2 L (80-98) fL MCH 18.5 L (27.0-33.0) pg MCHC 27.6 L (31.0-35.0) g/dl RDW 19.0 H (11.0-16.0) % Plt Count 175 (160-400) X10*3/uL MPV Not Reportable Immature Gran % (Auto) 0.3 (0.0-0.4) % Neut % (Auto) 69.0 (45-73) % Lymph % (Auto) 21.0 (20-40) % [place] % (Auto) 7.7 (2-11) % Eos % (Auto) 1.4 (0-4) % Baso % (Auto) 0.6 (0-2) % Lymph # (Auto) 2.1 (1.2-4.9) X10*3/uL [place] # (Auto) 0.8 (0.1-1.2) X10*3/uL Eos # (Auto) 0.1 (0.0-0.4) X10*3/uL Baso # (Auto) 0.1 (0.0-0.2) X10*3/uL Abs Immat Gran (auto) 0.03 (0.00-0.03) X10*3/uL Absolute Neuts (auto) 6.9 (2.0-8.3) X10*3/uL Absolute Nucleated RBC 0.000 (0.0-0.012) X10*3/uL Nucleated RBC % (auto) 0.0 (0.0-0.2) /100WBC Hold Blue Top SEE NOTE Sodium 136 (135-145) mmol/L Potassium 3.7 (3.3-5.1) mmol/L Chloride 105 (96-108) mmol/L Carbon Dioxide 22 (22-29) mmol/L Anion Gap 13 (12-20) BUN 13 (9-16) mg/dL Creatinine 0.92 (0.5-1.4) mg/dL Estim Creat Clear Calc 121.5 Estimated GFR > 60 Random Glucose 105 (60-115) mg/dL Calcium 8.5 (8.4-10.2) mg/dL Total Bilirubin 0.4 (0.0-1.0) mg/dL AST 106 H (5-31) U/L ALT 90 H (0-31) U/L Alkaline Phosphatase 70 (39-117) U/L Total Protein 7.9 (6.5-8.0) g/dL Albumin 4.4 (3.5-5.0) g/dL Urine Color Urine Appearance Urine pH (5.0-8.0) Ur Specific [place] (1.005-1.025) Urine Protein (NEG-TRACE) MG/DL Urine Glucose (UA) (NEG) MG/DL Urine Ketones (NEG) MG/DL Urine Blood (NEG) Urine Nitrite (NEG) Ur Leukocyte Esterase (NEG) Urine RBC (0) /HPF Urine WBC (0-4) /HPF Ur Squamous Epith Cells /LPF Urine Bacteria /LPF Urine Test (NEGATIVE) 12/07/20 12/07/20 Range/Units 16:35 16:35 WBC (4.8-10.8) X10*3/uL RBC (4.20-5.50) X10*6/uL Hgb (12.0-16.0) g/dl Hct (37-47) % MCV (80-98) fL MCH (27.0-33.0) pg MCHC (31.0-35.0) g/dl RDW (11.0-16.0) % Plt Count (160-400) X10*3/uL MPV Immature Gran % (Auto) (0.0-0.4) % Neut % (Auto) (45-73) % Lymph % (Auto) (20-40) % [place] % (Auto) (2-11) % Eos % (Auto) (0-4) % Baso % (Auto) (0-2) % Lymph # (Auto) (1.2-4.9) X10*3/uL [place] # (Auto) (0.1-1.2) X10*3/uL Eos # (Auto) (0.0-0.4) X10*3/uL Baso # (Auto) (0.0-0.2) X10*3/uL Abs Immat Gran (auto) (0.00-0.03) X10*3/uL Absolute Neuts (auto) (2.0-8.3) X10*3/uL Absolute Nucleated RBC (0.0-0.012) X10*3/uL Nucleated RBC % (auto) (0.0-0.2) /100WBC Hold Blue Top Sodium (135-145) mmol/L Potassium (3.3-5.1) mmol/L Chloride (96-108) mmol/L Carbon Dioxide (22-29) mmol/L Anion Gap (12-20) BUN (9-16) mg/dL Creatinine (0.5-1.4) mg/dL Estim Creat Clear Calc Estimated GFR Random Glucose (60-115) mg/dL Calcium (8.4-10.2) mg/dL Total Bilirubin (0.0-1.0) mg/dL AST (5-31) U/L ALT (0-31) U/L Alkaline Phosphatase (39-117) U/L Total Protein (6.5-8.0) g/dL Albumin (3.5-5.0) g/dL Urine Color YELLOW Urine Appearance CLEAR Urine pH 6.0 (5.0-8.0) Ur Specific [place] 1.020 (1.005-1.025) Urine Protein NEG (NEG-TRACE) MG/DL Urine Glucose (UA) NEG (NEG) MG/DL Urine Ketones NEG (NEG) MG/DL Urine Blood 1+ H (NEG) Urine Nitrite NEG (NEG) Ur Leukocyte Esterase 1+ H (NEG) Urine RBC 5-9 H (0) /HPF Urine WBC 10-14 H (0-4) /HPF Ur Squamous Epith Cells 2+ /LPF Urine Bacteria 2+ /LPF Urine Test NEGATIVE (NEGATIVE) Imaging Data Abdominal ultrasound: Radiologist's impression: Enlarged fatty liver Caliectasis again noted left lower pole which is a chronic finding. I suspect that this is probably related to parapelvic cysts mimicking hydronephrosis. Discharge Plan Discharge Clinical Impression: UTI (urinary tract infection) Qualifiers: Urinary tract infection type: acute cystitis Hematuria presence: without hematuria Qualified Code(s): N30.00 - Acute cystitis without hematuria Back pain Qualifiers: Back pain location: low back pain Chronicity: unspecified Back pain laterality: right Sciatica presence: without sciatica Qualified Code(s): M54.5 - Low back pain Patient Disposition: Home, Self-Care Instructions: Urinary Tract Infection in Women (ED) Additional Instructions: Drink plenty of fluid. Prescriptions: New cefuroxime axetil 500 mg tablet 500 mg PO Q12H Qty: 14 RF: 0 No Action iron,carbonyl-vitamin C [Vitron-C] 65 mg iron- 125 mg tablet,delayed release (DR/EC) 1 tab PO DAILY Qty: 60 RF: 6 levothyroxine [Tirosint] 200 mcg capsule 200 mcg PO DAILY Qty: 30 RF: 6 cholecalciferol (vitamin D3) [Vitamin D3] 25 mcg (1,000 unit) capsule 25 mcg PO DAILY Qty: 30 RF: 6 levothyroxine [Tirosint] 50 mcg capsule 50 mcg PO DAILY 30 Days Qty: 30 RF: 6 ondansetron HCl [Zofran] 4 mg tablet 4 mg PO Q6H PRN (Reason: nausea and vomiting) Qty: 14 RF: 0 doxycycline monohydrate 100 mg capsule 100 mg PO BID Qty: 14 RF: 0 fluoxetine 40 mg capsule 40 mg PO DAILY RF: 0 trazodone 100 mg tablet 100 mg PO DAILY RF: 0 risperidone 3 mg tablet 3 mg PO DAILY RF: 0 Flovent Diskus 100 mcg/actuation blister with device 1 inh inhalation Q12H RF: 0 ipratropium bromide 0.03 % spray,non-aerosol 2 spray intranasal BID RF: 0 omeprazole 20 mg capsule,delayed release(DR/EC) 20 mg PO DAILY RF: 0 azelastine 0.15 % (205.5 mcg) spray,non-aerosol 1 spray intranasal BID RF: 0 diphenhydramine HCl [Benadryl Allergy] 25 mg tablet 25 mg PO BEDTIME RF: 0 famotidine 40 mg tablet 40 mg PO DAILY RF: 0 loratadine 10 mg capsule 10 mg PO DAILY RF: 0 psyllium Packet 1 packet PO TID RF: 0 albuterol sulfate [ProAir HFA] 90 mcg/actuation HFA aerosol inhaler 1 inh inhalation QID RF: 0 montelukast [Singulair] 10 mg tablet 10 mg PO BEDTIME RF: 0 acetaminophen [Tylenol Extra Strength] 500 mg tablet 500 mg PO QID PRNRF: 0 mecobalamin (vitamin B12) 1,000 mcg tablet,chewable 1,000 mcg PO DAILY RF: 0 Linzess 145 mcg capsule 145 mcg PO DAILY Qty: 30 RF: 2 Referrals: Bernadine Ramos, [employer]GER [Primary Care Provider] - 2 days
== END 2020-12-07 19:46 | disposition home or self-care (01) ==
PROVIDERS: Emergency Provider Emergency Medicine; PCP Nurse Practitioner Primary Care
DX: N30.00 Acute cystitis without hematuria (principal); M54.5 Low back pain; Z79.899 Other long term (current) drug therapy
CPT/HCPCS: 36415; 76700; 80053; 81001; 81003; 81025; 85025; 87086; 99284

== ENCOUNTER → 2020-12-12 14:33 | Outpatient (BNVA) | payer MEDICAID, SELFPAY | PROVIDERS: PCP Nurse Practitioner Primary Care; Visit Provider Nurse Practitioner Family ==

== ENCOUNTER 2020-12-21 12:06 | Emergency (ER) | payer MEDICAID, SELFPAY ==
--- NOTE | ~2020-12-21 | XR_ITS ---
EXAMINATION: XR CHEST CLINICAL INFORMATION: Cough COMPARISON: Chest radiographs 09/05/2020, 02/01/2019 TECHNIQUE: Portable upright AP view of the chest was obtained. FINDINGS: The lungs are clear. The vascularity is normal. There is no airspace consolidation, definite groundglass opacity, or effusion. The cardiac and hilar and mediastinal contours and bony structures are unremarkable. XR/XR chest 1V IMPRESSION: Unremarkable examination.
[2020-12-21 12:14] VITALS: BP 101/72; PULSE 108; RESP 24; TEMP 37; O2SAT 100; BMI 44.9
[2020-12-21 13:51] LABS: Influenza A PCR NEGATIVE (Negative); Influenza B PCR NEGATIVE (Negative); Resp Syncy Virus RNA Qual PCR NEGATIVE (Negative); SARS COV2 PCR INHOUSE NEGATIVE (Negative)
--- NOTE | 2020-12-21 13:59 | ED_ITS ---
HPI - General Adult General Chief complaint: Upper Respiratory Symptoms Stated complaint: cough, difficulty breathing Time Seen by Provider: 12/21/20 12:59 Source: patient Mode of arrival: ambulatory Limitations: no limitations History of Present Illness HPI narrative: Patient presents to the ED for coughing, sore throat, weakness, headache and body ache. Patient denies any chest pain. Patient denies any shortness of breath. Patient has secondary complaint is that she was informed by her PCP that hemoglobin was 7.4. Patient has history of anemia and is on iron pills. She denies any rectal bleeding or vaginal bleeding. Related Data Home Medications Medication Instructions Recorded Confirmed acetaminophen 500 mg tablet 500 mg PO QID PRN 06/01/20 09/20/20 albuterol sulfate 90 mcg/actuation 1 inh INHALATION QID 06/01/20 09/20/20 aerosol inhaler azelastine 205.5 mcg (0.15 %) 1 spray INTRANASAL BID 06/01/20 09/20/20 nasal spray diphenhydramine HCl 25 mg tablet 25 mg PO BEDTIME 06/01/20 09/20/20 famotidine 40 mg tablet 40 mg PO DAILY 06/01/20 09/20/20 fluoxetine 40 mg capsule 40 mg PO DAILY 06/01/20 09/20/20 fluticasone propionate 100 1 inh INHALATION Q12H 06/01/20 09/20/20 mcg/actuation blister powder for inhalation ipratropium bromide 21 mcg (0.03 2 spray INTRANASAL BID 06/01/20 09/20/20 %) nasal spray loratadine 10 mg capsule 10 mg PO DAILY 06/01/20 09/20/20 mecobalamin (vitamin B12) 1,000 1,000 mcg PO DAILY 06/01/20 09/20/20 mcg chewable tablet montelukast 10 mg tablet 10 mg PO BEDTIME 06/01/20 09/20/20 psyllium 1 packet PO TID 06/01/20 09/20/20 risperidone 3 mg tablet 3 mg PO DAILY 06/01/20 09/20/20 trazodone 100 mg tablet 100 mg PO DAILY 06/01/20 09/20/20 Previous Rx's Medication Instructions Recorded iron,carbonyl 65 mg-vitamin C 125 1 tab PO DAILY #60 tab 07/15/20 mg tablet,delayed release ondansetron HCl [Zofran] 4 mg PO Q6H PRN #14 tab 09/05/20 Tirosint 200 mcg capsule 200 mcg PO DAILY #30 cap NS 10/05/20 cholecalciferol (vitamin D3) 25 25 mcg PO DAILY #30 cap 10/07/20 mcg (1,000 unit) capsule Tirosint 50 mcg capsule 50 mcg PO DAILY 30 Days #30 cap NS 10/12/20 doxycycline monohydrate 100 mg PO BID #14 cap 10/26/20 cefuroxime axetil 500 mg PO Q12H #14 tab 12/07/20 linaclotide 290 mcg capsule 290 mcg PO DAILY #30 cap 12/12/20 omeprazole 20 mg capsule,delayed 20 mg PO DAILY #30 cap 12/12/20 release Allergies Allergy/AdvReac Type Severity Reaction Status Date / Time No Known Allergies Allergy Verified 12/12/20 14:33 Review of Systems Review of Systems: Yes all other systems are reviewed and are negative Constitutional: Constitutional: Reports as per HPI, Reports no additional constitutional complaints and Reports body ache(s) Eyes: Eyes: Reports as per HPI and Reports no additional eye complaints ENT: Reports sore throat Cardiovascular: Cardiovascular: Reports as per HPI, Reports no additional cardiovascular complaints, Denies chest pain and Denies dyspnea Respiratory: Respiratory: Reports as per HPI, Reports no additional respiratory complaints, Reports cough and Denies dyspnea Gastrointestinal: Gastrointestinal: Reports as per HPI and Reports no additional gastrointestinal complaints Genitourinary: Genitourinary: Reports no additional female genitourinary complaints and Reports as per HPI Musculoskeletal: Musculoskeletal: Reports no additional musculoskeletal complaints and Reports as per HPI Neurologic: Reports system reviewed and no additional complaints, except as documented and Reports as per HPI Psychiatric: Psychiatric: Reports no additional psychiatric complaints and Rep orts as per HPI [facility] Past Medical History Medical History ADHD Constipation Depression Elevated liver enzymes Hypothyroid Morbid obesity Obstructive sleep apnea Post-surgical hypothyroidism Rheumatoid arthritis Varicose veins of bilateral lower extremities with other complications Surgical History H/O prior ablation treatment (~2017) History of vein stripping (~2018) Hx of thyroidectomy Family History Family History Father No problems noted. Mother No problems noted. Brother No problems noted. Brother No problems noted. Brother No problems noted. Social History Social History (Updated 12/12/20 @ 14:35 by ADAMS Loyola) Household Members: Family Alcohol intake: never Smoking Status: Never smoker Advance Directives: No Advance Directives Information Provided: No Current occupational status: unemployed Physical Exam Vital Signs: Vital Signs: Last Vital Signs Temp 98.6 F 12/21/20 12:14 Pulse 76 12/21/20 14:56 Resp 16 12/21/20 14:56 BP 101/53 L 12/21/20 14:56 Pulse Ox 99 12/21/20 14:56 Body Mass Index 44.9 Const: General: cooperative, healthy appearing, comfortable, no acute dis tress, well developed, alert and awake Orientation/consciousness: patient oriented x3 HENMT: Head: Yes normal to inspection, Yes No palpable skull fracture present, Yes normocephalic and Yes atraumatic Eyes: General: appearance normal, both eyes and all related structures Neck: Neck: Yes normal visual inspection, Yes full ROM, Yes no lymphad enopathy, Yes no meningeal signs, Yes trachea midline, Yes supple and No tender Chest: Chest palpation & inspection: normal inspection of the chest and normal palpation of entire chest wall Breast/axilla inspection: normal inspection of the breasts Resp: Effort & Inspection: normal respiratory effort and able to speak in complete sentences Auscultation: clear to auscultation bilaterally Cardio: Jugular venous distension: no JVD Heart sounds: S1 normal heart sound present and S2 normal heart sound present GI: Inspection: Yes normal to inspection and No abdominal wall ecchymosis Palpation (GI): Soft to palpation, not firm, nontender, no guarding and not rigid : General: No CVA tenderness and Yes no CVA tenderness Back/Spine/Pelvis: Back: no CVA tenderness, No CVA tenderness and No back tenderness Skin: General skin exam: no rashes or lesions noted and elasticity normal Neuro: General: patient oriented x3, no meningeal signs and CN's II-XI intact bilaterally Cranial nerves: Yes CN's II-XII intact bilaterally Extrem: Other: Lower extremities negative for swelling, pitting edema, or calf tenderness. General: Yes normal to inspection and Yes full ROM Psych: Appearance: grossly normal, well kempt and not disheveled Course Course Course Narrative: Sound like patient having a viral syndrome. Will do COVID swab and chest x-ray. patient was informed by PCP that haer hemoglobin 7.4. will do repeat labs including H& H. Patient has known history of anemia and is on iron pills. Reevaluation(s) Reevaluation #1: Patient's labs were trended and shows chronic history of anemia. Patient's H&H actually better today was 7.6. Chest x-ray is normal. COVID swab negative. History physical exam indicates URI. Patient denies any rectal or vaginal bleeding. No Indication for blood transfusion. Patient informed to follow-up with PCP. I tried to contact provider Darren Ramos, but could not be found. Not suspecting NV or PE. Patient informed me that she was having coughing, sore throat, body aches, and weakness. Patient informed to return to ED immediately if symptoms worsen. Medical Decision Making MDM Narrative Medical decision making narrative: URI. Viral syndrome. Anemia Lab Data Result diagrams: 12/21/20 14:06 12/21/20 14:06 Labs: Lab Results 12/21/20 12/21/20 12/21/20 Range/Units 12:58 14:06 14:06 WBC 8.8 (4.8-10.8) X10*3/uL RBC 4.07 L (4.20-5.50) X10*6/uL Hgb 7.6 L (12.0-16.0) g/dl Hct 27.4 L (37-47) % MCV 67.3 L (80-98) fL MCH 18.7 L (27.0-33.0) pg MCHC 27.7 L (31.0-35.0) g/dl RDW 19.2 H (11.0-16.0) % Plt Count 193 (160-400) X10*3/uL MPV Not Reportable Immature Gran % (Auto) 0.5 H (0.0-0.4) % Neut % (Auto) 62.2 (45-73) % Lymph % (Auto) 26.7 (20-40) % Esmeralda % (Auto) 8.1 (2-11) % Eos % (Auto) 1.4 (0-4) % Baso % (Auto) 1.1 (0-2) % Lymph # (Auto) 2.3 (1.2-4.9) X10*3/uL Esmeralda # (Auto) 0.7 (0.1-1.2) X10*3/uL Eos # (Auto) 0.1 (0.0-0.4) X10*3/uL Baso # (Auto) 0.1 (0.0-0.2) X10*3/uL Abs Immat Gran (auto) 0.04 H (0.00-0.03) X10*3/uL Absolute Neuts (auto) 5.4 (2.0-8.3) X10*3/uL Absolute Nucleated RBC 0.000 (0.0-0.012) X10*3/uL Nucleated RBC % (auto) 0.0 (0.0-0.2) /100WBC PT 14.1 H (10.8-13.0) SEC INR 1.2 H (0.9-1.1) APTT 32.9 (24.1-38.0) SEC Sodium (135-145) mmol/L Potassium (3.3-5.1) mmol/L Chloride (96-108) mmol/L Carbon Dioxide (22-29) mmol/L Anion Gap (12-20) BUN (9-16) mg/dL Creatinine (0.5-1.4) mg/dL Estim Creat Clear Calc Estimated GFR Random Glucose (60-115) mg/dL Calcium (8.4-10.2) mg/dL Total Bilirubin (0.0-1.0) mg/dL Direct Bilirubin (0.0-0.5) mg/dL AST (5-31) U/L ALT (0-31) U/L Alkaline Phosphatase (39-117) U/L Total Protein (6.5-8.0) g/dL Albumin (3.5-5.0) g/dL Lipase (8-78) U/L Beta HCG, Quant mIU/mL Coronavirus (PCR) NEGATIVE (Negative) Influenza Type A (PCR) NEGATIVE (Negative) Influenza Type B (PCR) NEGATIVE (Negative) RSV RNA Qual (PCR) NEGATIVE (Negative) 12/21/20 12/21/20 Range/Units 14:06 14:06 WBC (4.8-10.8) X10*3/uL RBC (4.20-5.50) X10*6/uL Hgb (12.0-16.0) g/dl Hct (37-47) % MCV (80-98) fL MCH (27.0-33.0) pg MCHC (31.0-35.0) g/dl RDW (11.0-16.0) % Plt Count (160-400) X10*3/uL MPV Immature Gran % (Auto) (0.0-0.4) % Neut % (Auto) (45-73) % Lymph % (Auto) (20-40) % Esmeralda % (Auto) (2-11) % Eos % (Auto) (0-4) % Baso % (Auto) (0-2) % Lymph # (Auto) (1.2-4.9) X10*3/uL Esmeralda # (Auto) (0.1-1.2) X10*3/uL Eos # (Auto) (0.0-0.4) X10*3/uL Baso # (Auto) (0.0-0.2) X10*3/uL Abs Immat Gran (auto) (0.00-0.03) X10*3/uL Absolute Neuts (auto) (2.0-8.3) X10*3/uL Absolute Nucleated RBC (0.0-0.012) X10*3/uL Nucleated RBC % (auto) (0.0-0.2) /100WBC PT (10.8-13.0) SEC INR (0.9-1.1) APTT (24.1-38.0) SEC Sodium 139 (135-145) mmol/L Potassium 4.0 (3.3-5.1) mmol/L Chloride 104 (96-108) mmol/L Carbon Dioxide 25 (22-29) mmol/L Anion Gap 14 (12-20) BUN 12 (9-16) mg/dL Creatinine 0.95 (0.5-1.4) mg/dL Estim Creat Clear Calc 119.7 Estimated GFR > 60 Random Glucose 82 (60-115) mg/dL Calcium 8.8 (8.4-10.2) mg/dL Total Bilirubin 0.6 (0.0-1.0) mg/dL Direct Bilirubin 0.2 (0.0-0.5) mg/dL AST 90 H (5-31) U/L ALT 74 H (0-31) U/L Alkaline Phosphatase 59 (39-117) U/L Total Protein 7.7 (6.5-8.0) g/dL Albumin 4.3 (3.5-5.0) g/dL Lipase 22 (8-78) U/L Beta HCG, Quant < 2 mIU/mL Coronavirus (PCR) (Negative) Influenza Type A (PCR) (Negative) Influenza Type B (PCR) (Negative) RSV RNA Qual (PCR) (Negative) Discharge Plan Discharge Clinical Impression: Anemia, Upper respiratory infection, Acute viral syndrome Patient Disposition: Home, Self-Care Instructions: Upper Respiratory Infection (ED), Viral Syndrome (ED), Anemia (ED) Additional Instructions: Return to the ED immediately for any chest pain, shortness of breath, coughing up blood, fever, chills, calf pain, swelling lower extremities, dizziness, the weakness, slurred speech, loss of vision, severe headache, paralysis of ex tremities, any other concerning symptoms Prescriptions: No Action iron,carbonyl-vitamin C [Vitron-C] 65 mg iron- 125 mg tablet,delayed release (DR/EC) 1 tab PO DAILY Qty: 60 RF: 6 levothyroxine [Tirosint] 200 mcg capsule 200 mcg PO DAILY Qty: 30 RF: 6 cholecalciferol (vitamin D3) [Vitamin D3] 25 mcg (1,000 unit) capsule 25 mcg PO DAILY Qty: 30 RF: 6 levothyroxine [Tirosint] 50 mcg capsule 50 mcg PO DAILY 30 Days Qty: 30 RF: 6 ondansetron HCl [Zofran] 4 mg tablet 4 mg PO Q6H PRN (Reason: nausea and vomiting) Qty: 14 RF: 0 doxycycline monohydrate 100 mg capsule 100 mg PO BID Qty: 14 RF: 0 cefuroxime axetil 500 mg tablet 500 mg PO Q12H Qty: 14 RF: 0 fluoxetine 40 mg capsule 40 mg PO DAILY RF: 0 trazodone 100 mg tablet 100 mg PO DAILY RF: 0 risperidone 3 mg tablet 3 mg PO DAILY RF: 0 Flovent Diskus 100 mcg/actuation blister with device 1 inh inhalation Q12H RF: 0 ipratropium bromide 0.03 % spray,non-aerosol 2 spray intranasal BID RF: 0 azelastine 0.15 % (205.5 mcg) spray,non-aerosol 1 spray intranasal BID RF: 0 diphenhydramine HCl [Benadryl Allergy] 25 mg tablet 25 mg PO BEDTIME RF: 0 famotidine 40 mg tablet 40 mg PO DAILY RF: 0 loratadine 10 mg capsule 10 mg PO DAILY RF: 0 psyllium Packet 1 packet PO TID RF: 0 albuterol sulfate [ProAir HFA] 90 mcg/actuation HFA aerosol inhaler 1 inh inhalation QID RF: 0 montelukast [Singulair] 10 mg tablet 10 mg PO BEDTIME RF: 0 acetaminophen [Tylenol Extra Strength] 500 mg tablet 500 mg PO QID PRNRF: 0 mecobalamin (vitamin B12) 1,000 mcg tablet,chewable 1,000 mcg PO DAILY RF: 0 omeprazole 20 mg capsule,delayed release(DR/EC) 20 mg PO DAILY Qty: 30 RF: 2 Linzess 290 mcg capsule 290 mcg PO DAILY Qty: 30 RF: 2 Referrals: Bernadine Ramos, [employer] [Primary Care Provider] - 2 days (COVID 7 chest x-ray negative. Labs show chronic stable anemia. Hemoglobin 7.6 and hematocrit is 27.4.) Interventions: ED Discharge Assessment Last Done: 12/21/20 16:31 Discharge Date/Time: 12/21/20 16:33 Print Language: [place]
[2020-12-21 14:18] LABS: MANUAL DIFF FLAG NO
[2020-12-21 14:22] LABS: Basophils Absolute Auto 0.1 X10*3/uL (0.0-0.2); Basophils Percent Auto 1.1 % (0-2); Eosinophils Absolute Auto 0.1 X10*3/uL (0.0-0.4); Eosinophils Percent Auto 1.4 % (0-4); Hematocrit 27.4 % (37-47); Hemoglobin 7.6 g/dl (12.0-16.0); Imm Gran Abs Auto 0.04 X10*3/uL (0.00-0.03); Imm Gran Pct Auto 0.5 % (0.0-0.4); Lymphocytes Absolute Auto 2.3 X10*3/uL (1.2-4.9); Lymphocytes Percent Auto 26.7 % (20-40); Mean Corpuscular HGB Conc 27.7 g/dl (31.0-35.0); Mean Corpuscular Hemoglobin 18.7 pg (27.0-33.0); Mean Corpuscular Volume 67.3 fL (80-98); Monocytes Absolute Auto 0.7 X10*3/uL (0.1-1.2); Monocytes Percent Auto 8.1 % (2-11); Neutrophils Absolute Auto 5.4 X10*3/uL (2.0-8.3); Neutrophils Percent Auto 62.2 % (45-73); Platelet Count 193 X10*3/uL (160-400); Red Blood Count 4.07 X10*6/uL (4.20-5.50); Red Cell Distribution Width 19.2 % (11.0-16.0); White Blood Count 8.8 X10*3/uL (4.8-10.8)
[2020-12-21 14:29] LABS: INTERNATIONAL NORM RATIO 1.2 (0.9-1.1); Prothrombin Time 14.1 SEC (10.8-13.0)
[2020-12-21 14:32] LABS: Partial Thromboplastin Time 32.9 SEC (24.1-38.0)
[2020-12-21 14:41] LABS: Lipase 22 U/L (8-78)
[2020-12-21 14:42] LABS: Alanine Aminotransferase 74 U/L (0-31); Albumin Level 4.3 g/dL (3.5-5.0); Alkaline Phosphatase 59 U/L (39-117); Anion Gap 14 (12-20); Aspartate Amino Transferase 90 U/L (5-31); Bilirubin Direct 0.2 mg/dL (0.0-0.5); Bilirubin Total 0.6 mg/dL (0.0-1.0); Blood Urea Nitrogen 12 mg/dL (9-16); Calcium 8.8 mg/dL (8.4-10.2); Carbon Dioxide 25 mmol/L (22-29); Chloride 104 mmol/L (96-108); Creatinine Clr Calc Pharmacy 119.7; Estimated Glomerular Filt Rate > 60; Glucose Random 82 mg/dL (60-115); Sodium 139 mmol/L (135-145); Total Protein 7.7 g/dL (6.5-8.0)
[2020-12-21 14:48] LABS: HCG Quantitative < 2 mIU/mL
[2020-12-21 14:56] VITALS: BP 101/53; PULSE 76; RESP 16; O2SAT 99
== END 2020-12-21 16:33 | disposition home or self-care (01) ==
PROVIDERS: Physician Assistant; Emergency Provider Emergency Medicine; PCP Nurse Practitioner Primary Care
DX: B34.9 Viral infection, unspecified (principal); J06.9 Acute upper respiratory infection, unspecified; M79.10 Myalgia, unspecified site; D64.9 Anemia, unspecified; R05 Cough; Z20.822 Contact with and (suspected) exposure to COVID-19
CPT/HCPCS: 0241U; 36415; 71045; 80053; 80076; 82248; 83690; 84702; 85025; 85610; 85730; 87071; 87880; 99283

== ENCOUNTER 2020-12-29 10:43 | Outpatient (REF) | payer MEDICAID, SELFPAY | END 2020-12-29 10:44 | disposition home or self-care (01) | LOC: HO.US 10:43 | PROVIDERS: PCP Nurse Practitioner Primary Care; Visit Provider Nurse Practitioner Primary Care | DX: Z13.89 Encounter for screening for other disorder (principal) ==

== ENCOUNTER → 2020-12-30 13:07 | Outpatient (BNV) | payer MEDICAID, SELFPAY | PROVIDERS: PCP Nurse Practitioner Primary Care; Referring Provider Nurse Practitioner Primary Care; Visit Provider Internal Medicine Medical Oncology | DX: D50.9 Iron deficiency anemia, unspecified (principal) | CPT/HCPCS: 99204; 99213; 99214 ==

== ENCOUNTER 2021-01-23 10:37 | Outpatient (REF) | payer MEDICAID, SELFPAY | END 2021-01-23 10:38 | disposition home or self-care (01) | LOC: HO.MDS 10:37 | PROVIDERS: PCP Nurse Practitioner Primary Care; Visit Provider Internal Medicine Medical Oncology | DX: D50.9 Iron deficiency anemia, unspecified (principal) | CPT/HCPCS: 96365; J1439 ==

== ENCOUNTER 2021-02-07 14:02 | Outpatient (REF) | payer MEDICAID, SELFPAY ==
[2021-02-07 15:53] LABS: Hemoglobin 9.4 g/dl (12.0-16.0); Mean Corpuscular HGB Conc 28.5 g/dl (31.0-35.0); Mean Corpuscular Hemoglobin 21.9 pg (27.0-33.0); Mean Corpuscular Volume 76.7 fL (80-98); Platelet Count 152 X10*3/uL (160-400); Red Cell Distribution Width 29.6 % (11.0-16.0); White Blood Count 7.7 X10*3/uL (4.8-10.8)
[2021-02-07 16:05] LABS: Alanine Aminotransferase 54 U/L (0-31); Albumin Level 4.3 g/dL (3.5-5.0); Alkaline Phosphatase 85 U/L (39-117); Anion Gap 12 (12-20); Aspartate Amino Transferase 42 U/L (5-31); Bilirubin Total 0.6 mg/dL (0.0-1.0); Blood Urea Nitrogen 15 mg/dL (9-16); Carbon Dioxide 26 mmol/L (22-29); Chloride 105 mmol/L (96-108); Estimated Glomerular Filt Rate > 60; Glucose Random 124 mg/dL (60-115); Potassium 3.9 mmol/L (3.3-5.1); Sodium 139 mmol/L (135-145); Total Protein 7.6 g/dL (6.5-8.0)
[2021-02-07 16:17] LABS: HCG Quantitative < 2 mIU/mL
[2021-02-07 16:26] LABS: TSH reflex Free T4 8.38 uIU/mL (0.32-4.0)
[2021-02-08 10:38] LABS: CT PCR NOT DETECTED (Not Detect.); NG PCR NOT DETECTED (Not Detect.)
[2021-02-08 21:48] LABS: DHEA Sulfate 49 mcg/dL (18-391)
[2021-02-09 02:37] LABS: Follicle Stimulating Hormone 4.4 mIU/mL
[2021-02-09 06:37] LABS: Sex Hormone Binding Globulin 22 nmol/L (17-124)
[2021-02-10 22:46] LABS: HPV mRNA E6/E7 rflx Not Detected (Not Detected)
[2021-02-12 13:21] LABS: Testosterone, Free 2.2 pg/mL (0.1-6.4); Testosterone, Total 12 ng/dL (2-45)
[2021-02-14 19:42] LABS: Androstenedione 56 ng/dL
== END 2021-02-07 14:03 | disposition home or self-care (01) ==
LOC: HO.LAB 14:02
PROVIDERS: Nurse Practitioner Family; Nurse Practitioner Gerontology; PCP Nurse Practitioner Primary Care; Visit Provider Obstetrics & Gynecology
DX: N92.0 Excessive and frequent menstruation with regular cycle (principal); D64.9 Anemia, unspecified; R74.8 Abnormal levels of other serum enzymes; R79.89 Other specified abnormal findings of blood chemistry; L65.9 Nonscarring hair loss, unspecified; N93.9 Abnormal uterine and vaginal bleeding, unspecified; E03.9 Hypothyroidism, unspecified; Z11.51 Encounter for screening for human papillomavirus (HPV)
CPT/HCPCS: 36415; 80053; 82157; 82533; 82627; 83001; 84146; 84270; 84402; 84403; 84439; 84443; 84702; 85027; 87491; 87591; 87624; 88142; 99202

== ENCOUNTER 2021-05-23 19:04 | Emergency (ER) | payer MEDICAID, SELFPAY ==
--- NOTE | ~2021-05-23 | CT_ITS ---
EXAMINATION: CT ABDOMEN AND PELVIS WITHOUT CONTRAST CLINICAL INFORMATION: Right-sided abdominal pain COMPARISON: CT abdomen pelvis 02/12/2013, ultrasound abdomen 12/07/2020 TECHNIQUE: Multidetector volumetric imaging was performed from the superior aspect of the liver through the pubic symphysis. Sagittal and coronal reformatted images were obtained on the technologist's workstation. This CT examination was performed using dose optimization techniques as appropriate, variously including the following: *Automated exposure control *Adjustment of mA and/or kV according to patient size (this includes techniques or standardized protocols for targeted exams where dose is matched to indication/reason for exam; i.e. extremities or head) *Use of iterative reconstruction technique DLP: 1286 mGy-cm FINDINGS: LUNG BASES: The visualized lung bases are unremarkable. LIVER, GALLBLADDER, AND BILIARY TREE: The liver is enlarged measuring 24.4 cm in greatest length and demonstrates decreased attenuation compared to the spleen consistent with hepatic steatosis. No focal hepatic lesion or biliary ductal dilatation is present. The gallbladder is completely contracted but otherwise unremarkable with no evidence of radiopaque gallstones, gallbladder wall thickening, or obvious pericholecystic inflammatory changes. PANCREAS: Unremarkable. SPLEEN: Mild splenomegaly with the spleen measuring 13.6 cm in greatest length. ADRENAL GLANDS: Unremarkable. KIDNEYS AND URETERS: The kidneys are normal in size, shape, and attenuation. No hydronephrosis, hydroureter, or calculi seen. No perinephric stranding. BLADDER: Unremarkable. GASTROINTESTINAL TRACT: The small and large bowel are unremarkable. The appendix is unremarkable. ABDOMINAL WALL: No significant hernia is appreciated. LYMPH NODES: No retroperitoneal lymphadenopathy seen. Small mesenteric lymph nodes are present. VASCULAR: Unremarkable. PELVIC VISCERA: Anteverted retroflexed uterus and both ovaries appear normal. Abnormal adnexal mass is not seen. No free fluid is present. OSSEOUS STRUCTURES: Unremarkable. Mild degenerative changes are present at L5-S1. CT/CT abdomen pelvis wo con IMPRESSION: 1. Enlarged fatty liver with mild splenomegaly. 2. A definite etiology for the patient's right-sided abdominal pain has not been found. No renal calculi are seen in the appendix is normal.
[2021-05-23 21:22] VITALS: BP 129/64; PULSE 82; RESP 16; TEMP 36.8; O2SAT 100; BMI 44.4
--- NOTE | 2021-05-23 22:33 | ED.ABDPAIN ---
HPI - Abdominal Pain General Chief Complaint: Abdominal Pain Stated Complaint: abd pain Time Seen by Provider: 05/23/21 22:26 Source: patient Mode of arrival: ambulatory Limitations: no limitations History of Present Illness HPI narrative: Patient no significant past abdominal complaints noticed pain in middle of the abdomen since yesterday 23:00 now complaining of pain in right lower quadrant tear no fever no chills no nausea no vomiting patient feels hungry, patient does get worse if she bent down also she has constipation with hemorrhoids denies any urinary complaints patient had ultrasound done gallbladder on 12/21 80 for gallstones [facility] advised her to go to the hospital to rule out appendicitis Related Data Home Medications Medication Instructions Recorded Confirmed acetaminophen 500 mg tablet 500 mg PO QID PRN 06/01/20 12/30/20 (Tylenol Extra Strength) albuterol sulfate 90 mcg/actuation 1 inh INHALATION QID 06/01/20 12/30/20 aerosol inhaler (ProAir HFA) azelastine 205.5 mcg (0.15 %) 1 spray INTRANASAL BID 06/01/20 12/30/20 nasal spray diphenhydramine HCl 25 mg tablet 25 mg PO BEDTIME 06/01/20 12/30/20 (Benadryl Allergy) famotidine 40 mg tablet 40 mg PO DAILY 06/01/20 12/30/20 fluoxetine 40 mg capsule 40 mg PO DAILY 06/01/20 12/30/20 fluticasone propionate 100 1 inh INHALATION Q12H 06/01/20 12/30/20 mcg/actuation blister powder for inhalation (Flovent Diskus) ipratropium bromide 21 mcg (0.03 2 spray INTRANASAL BID 06/01/20 12/30/20 %) nasal spray loratadine 10 mg capsule 10 mg PO DAILY 06/01/20 12/30/20 mecobalamin (vitamin B12) 1,000 1,000 mcg PO DAILY 06/01/20 12/30/20 mcg chewable tablet montelukast 10 mg tablet 10 mg PO BEDTIME 06/01/20 12/30/20 (Singulair) psyllium 1 packet PO TID 06/01/20 12/30/20 risperidone 3 mg tablet 3 mg PO DAILY 06/01/20 12/30/20 trazodone 100 mg tablet 100 mg PO DAILY 06/01/20 12/30/20 Previous Rx's Medication Instructions Recorded iron,carbonyl 65 mg-vitamin C 125 1 tab PO DAILY #60 tab 07/15/20 mg tablet,delayed release (Vitron-C) ondansetron HCl 4 mg tablet 4 mg PO Q6H PRN #14 tab 09/05/20 (Zofran) Tirosint 200 mcg capsule 200 mcg PO DAILY #30 cap NS 10/05/20 (levothyroxine) cholecalciferol (vitamin D3) 25 25 mcg PO DAILY #30 cap 10/07/20 mcg (1,000 unit) capsule (Vitamin D3) doxycycline monohydrate 100 mg 100 mg PO BID #14 cap 10/26/20 capsule cefuroxime axetil 500 mg tablet 500 mg PO Q12H #14 tab 12/07/20 linaclotide 290 mcg capsule 290 mcg PO DAILY #30 cap 12/12/20 (Linzess) omeprazole 20 mg capsule,delayed 20 mg PO DAILY #30 cap 12/12/20 release Tirosint 50 mcg capsule 50 mcg PO DAILY 30 Days #40 cap NS 02/17/21 (levothyroxine) dicyclomine 20 mg tablet 20 mg PO QID PRN #20 tab 05/24/21 Allergies Allergy/AdvReac Type Severity Reaction Status Date / Time Seasonal Allergies Allergy Sneezing Verified 02/07/21 14:09 Review of Systems Review of Systems Yes all other systems are reviewed and are negative Physical Exam Vital Signs: Vital Signs: Last Vital Signs Temp 97.8 F 05/23/21 22:48 Pulse 76 05/24/21 01:04 Resp 18 05/24/21 01:04 BP 113/63 05/24/21 01:04 Pulse Ox 100 05/23/21 22:48 Body Mass Index 44.4 Appearance: Alert. Oriented X3. No acute distress. Eyes: PERRLA, No Nystagmus ENT: Pharynx normal. Oral Mucosa moist Neck: Normal inspection. Neck supple. CVS: Normal heart rate and rhythm. Pulses normal. Respiratory: No respiratory distress. Equal air entry bilateral, no wheezing/rales/rhonchi Abdomen: Soft and deep tenderness right lower quadrant and right upper quadrant no rebound tenderness or guarding Bowel sounds are present, no mass palpable, no CVA tenderness Skin: Skin warm and dry. Normal skin color. Normal skin turgor. Extremities: No lower extremity edema. No calf tenderness Neuro: Oriented X 3. No motor deficit. MDM - Abdominal Pain MDM Narrative Medical decision making narrative: Patient with nonspecific right-sided pain normal WBC count urine showed few WBCs without nitrate Ct scan abdomen negative for appendicitis no kidney stone seen shows a slightly enlarged fatty liver. Now patient says that she does get this pain off and on for last few months. Likely IBS Lab Data Attestation: I reviewed the patient's lab results. Result diagrams: 05/23/21 22:56 05/23/21 22:56 Labs: Lab Results 05/23/21 05/23/21 05/23/21 Range/Units 22:56 22:56 22:56 WBC 10.8 (4.8-10.8) X10*3/uL RBC 4.22 (4.20-5.50) X10*6/uL Hgb 10.2 L (12.0-16.0) g/dl Hct 33.9 L (37-47) % MCV 80.3 (80-98) fL MCH 24.2 L (27.0-33.0) pg MCHC 30.1 L (31.0-35.0) g/dl RDW 17.0 H (11.0-16.0) % Plt Count 150 L (160-400) X10*3/uL MPV 12.1 (9.4-12.3) fL Immature Gran % (Auto) 1.0 H (0.0-0.4) % Neut % (Auto) 68.6 (45-73) % Lymph % (Auto) 18.7 L (20-40) % [place] % (Auto) 10.2 (2-11) % Eos % (Auto) 1.0 (0-4) % Baso % (Auto) 0.5 (0-2) % Lymph # (Auto) 2.0 (1.2-4.9) X10*3/uL [place] # (Auto) 1.1 (0.1-1.2) X10*3/uL Eos # (Auto) 0.1 (0.0-0.4) X10*3/uL Baso # (Auto) 0.1 (0.0-0.2) X10*3/uL Abs Immat Gran (auto) 0.11 H (0.00-0.03) X10*3/uL Absolute Neuts (auto) 7.4 (2.0-8.3) X10*3/uL Absolute Nucleated RBC 0.000 (0.0-0.012) X10*3/uL Nucleated RBC % (auto) 0.0 (0.0-0.2) /100WBC Sodium 138 (135-145) mmol/L Potassium 3.9 (3.3-5.1) mmol/L Chloride 103 (96-108) mmol/L Carbon Dioxide 25 (22-29) mmol/L Anion Gap 14 (12-20) BUN 12 (9-16) mg/dL Creatinine 0.87 (0.5-1.4) mg/dL Estim Creat Clear Calc 129.9 Estimated GFR > 60 Random Glucose 105 (60-115) mg/dL Calcium 9.1 (8.4-10.2) mg/dL Total Bilirubin 0.6 (0.0-1.0) mg/dL Direct Bilirubin 0.2 (0.0-0.5) mg/dL AST 135 H (5-31) U/L ALT 161 H (0-31) U/L Alkaline Phosphatase 97 (39-117) U/L Total Protein 8.7 H (6.5-8.0) g/dL Albumin 4.7 (3.5-5.0) g/dL Lipase 20 (8-78) U/L Urine Color YELLOW Urine Appearance CLEAR Urine pH 6.0 (5.0-8.0) Ur Specific [place] 1.025 (1.005-1.025) Urine Protein NEG (NEG-TRACE) MG/DL Urine Glucose (UA) NEG (NEG) MG/DL Urine Ketones NEG (NEG) MG/DL Urine Blood NEG (NEG) Urine Nitrite NEG (NEG) Ur Leukocyte Esterase TRACE H (NEG) Urine RBC 1-4 (0) /HPF Urine WBC 5-9 H (0-4) /HPF Ur Squamous Epith Cells 2+ /LPF Urine Bacteria 2+ /LPF Urine Mucus 2+ /LPF Urine Test (NEGATIVE) 05/23/21 Range/Units 22:56 WBC (4.8-10.8) X10*3/uL RBC (4.20-5.50) X10*6/uL Hgb (12.0-16.0) g/dl Hct (37-47) % MCV (80-98) fL MCH (27.0-33.0) pg MCHC (31.0-35.0) g/dl RDW (11.0-16.0) % Plt Count (160-400) X10*3/uL MPV (9.4-12.3) fL Immature Gran % (Auto) (0.0-0.4) % Neut % (Auto) (45-73) % Lymph % (Auto) (20-40) % [place] % (Auto) (2-11) % Eos % (Auto) (0-4) % Baso % (Auto) (0-2) % Lymph # (Auto) (1.2-4.9) X10*3/uL [place] # (Auto) (0.1-1.2) X10*3/uL Eos # (Auto) (0.0-0.4) X10*3/uL Baso # (Auto) (0.0-0.2) X10*3/uL Abs Immat Gran (auto) (0.00-0.03) X10*3/uL Absolute Neuts (auto) (2.0-8.3) X10*3/uL Absolute Nucleated RBC (0.0-0.012) X10*3/uL Nucleated RBC % (auto) (0.0-0.2) /100WBC Sodium (135-145) mmol/L Potassium (3.3-5.1) mmol/L Chloride (96-108) mmol/L Carbon Dioxide (22-29) mmol/L Anion Gap (12-20) BUN (9-16) mg/dL Creatinine (0.5-1.4) mg/dL Estim Creat Clear Calc Estimated GFR Random Glucose (60-115) mg/dL Calcium (8.4-10.2) mg/dL Total Bilirubin (0.0-1.0) mg/dL Direct Bilirubin (0.0-0.5) mg/dL AST (5-31) U/L ALT (0-31) U/L Alkaline Phosphatase (39-117) U/L Total Protein (6.5-8.0) g/dL Albumin (3.5-5.0) g/dL Lipase (8-78) U/L Urine Color Urine Appearance Urine pH (5.0-8.0) Ur Specific [place] (1.005-1.025) Urine Protein (NEG-TRACE) MG/DL Urine Glucose (UA) (NEG) MG/DL Urine Ketones (NEG) MG/DL Urine Blood (NEG) Urine Nitrite (NEG) Ur Leukocyte Esterase (NEG) Urine RBC (0) /HPF Urine WBC (0-4) /HPF Ur Squamous Epith Cells /LPF Urine Bacteria /LPF Urine Mucus /LPF Urine Test NEGATIVE (NEGATIVE) Discharge Plan Discharge Clinical Impression: Irritable bowel syndrome Qualifiers: Irritable bowel syndrome type: unspecified Qualified Code(s): K58.9 - Irritable bowel syndrome without diarrhea Patient Disposition: Home, Self-Care Instructions: Irritable Bowel Syndrome (ED) Additional Instructions: Drink plenty of fluids Take medication for pain as advised Prescriptions: New dicyclomine 20 mg tablet 20 mg PO QID PRN (Reason: abdominal pain) Qty: 20 RF: 0 No Action iron,carbonyl-vitamin C [Vitron-C] 65 mg iron- 125 mg tablet,delayed release (DR/EC) 1 tab PO DAILY Qty: 60 RF: 6 levothyroxine [Tirosint] 200 mcg capsule 200 mcg PO DAILY Qty: 30 RF: 6 cholecalciferol (vitamin D3) [Vitamin D3] 25 mcg (1,000 unit) capsule 25 mcg PO DAILY Qty: 30 RF: 6 levothyroxine [Tirosint] 50 mcg capsule 50 mcg PO DAILY 30 Days Qty: 40 RF: 6 ondansetron HCl [Zofran] 4 mg tablet 4 mg PO Q6H PRN (Reason: nausea and vomiting) Qty: 14 RF: 0 doxycycline monohydrate 100 mg capsule 100 mg PO BID Qty: 14 RF: 0 cefuroxime axetil 500 mg tablet 500 mg PO Q12H Qty: 14 RF: 0 fluoxetine 40 mg capsule 40 mg PO DAILY RF: 0 trazodone 100 mg tablet 100 mg PO DAILY RF: 0 risperidone 3 mg tablet 3 mg PO DAILY RF: 0 Flovent Diskus 100 mcg/actuation blister with device 1 inh inhalation Q12H RF: 0 ipratropium bromide 0.03 % spray,non-aerosol 2 spray intranasal BID RF: 0 azelastine 0.15 % (205.5 mcg) spray,non-aerosol 1 spray intranasal BID RF: 0 diphenhydramine HCl [Benadryl Allergy] 25 mg tablet 25 mg PO BEDTIME RF: 0 famotidine 40 mg tablet 40 mg PO DAILY RF: 0 loratadine 10 mg capsule 10 mg PO DAILY RF: 0 psyllium Packet 1 packet PO TID RF: 0 albuterol sulfate [ProAir HFA] 90 mcg/actuation HFA aerosol inhaler 1 inh inhalation QID RF: 0 montelukast [Singulair] 10 mg tablet 10 mg PO BEDTIME RF: 0 acetaminophen [Tylenol Extra Strength] 500 mg tablet 500 mg PO QID PRN (Reason: Pain) RF: 0 mecobalamin (vitamin B12) 1,000 mcg tablet,chewable 1,000 mcg PO DAILY RF: 0 omeprazole 20 mg capsule,delayed release(DR/EC) 20 mg PO DAILY Qty: 30 RF: 2 Linzess 290 mcg capsule 290 mcg PO DAILY Qty: 30 RF: 2 Interventions: ED Discharge Assessment Last Done: 05/24/21 01:10 Discharge Date/Time: 05/24/21 01:10 [facility] Past Medical History Medical History ADHD Constipation Depression Elevated liver enzymes Hypothyroid Morbid obesity Obstructive sleep apnea Post-surgical hypothyroidism Rheumatoid arthritis Varicose veins of bilateral lower extremities with other complications Surgical History H/O prior ablation treatment (~2017) History of vein stripping (~2017) Hx of thyroidectomy Family History Family History Father No problems noted. Mother No problems noted. Brother No problems noted. Brother No problems noted. Brother No problems noted. Social History Social History Household Members: Family Household Members Other:: parents Alcohol intake: never Patient Tobacco Use Status: Never used Tobacco Use of substances other than those prescribed or required for medical reasons: No Advance Directives: No Advance Directives Information Provided: Yes Current occupational status: unemployed
[2021-05-23 22:48] VITALS: BP 132/83; PULSE 80; RESP 18; TEMP 36.6; O2SAT 100
[2021-05-23 23:05] LABS: MANUAL DIFF FLAG NO
[2021-05-23 23:09] LABS: Appearance Urine CLEAR; Basophils Absolute Auto 0.1 X10*3/uL (0.0-0.2); Basophils Percent Auto 0.5 % (0-2); Color Urine YELLOW; Eosinophils Absolute Auto 0.1 X10*3/uL (0.0-0.4); Glucose Urine UA NEG (NEG); Hematocrit 33.9 % (37-47); Hemoglobin 10.2 g/dl (12.0-16.0); Imm Gran Abs Auto 0.11 X10*3/uL (0.00-0.03); Leukocyte Esterase Urine TRACE (NEG); Lymphocytes Percent Auto 18.7 % (20-40); Mean Corpuscular HGB Conc 30.1 g/dl (31.0-35.0); Mean Corpuscular Hemoglobin 24.2 pg (27.0-33.0); Mean Corpuscular Volume 80.3 fL (80-98); Mean Platelet Volume 12.1 fL (9.4-12.3); Monocytes Absolute Auto 1.1 X10*3/uL (0.1-1.2); Monocytes Percent Auto 10.2 % (2-11); Neutrophils Absolute Auto 7.4 X10*3/uL (2.0-8.3); Neutrophils Percent Auto 68.6 % (45-73); Nitrite Urine NEG (NEG); Platelet Count 150 X10*3/uL (160-400); Red Blood Count 4.22 X10*6/uL (4.20-5.50); Specific Gravity - Urine 1.025 (1.005-1.025); UACC Culture Trigger YES; Urine Blood NEG (NEG); Urine Ketones NEG (NEG); Urine Protein NEG (NEG-TRACE); White Blood Count 10.8 X10*3/uL (4.8-10.8)
[2021-05-23 23:10] LABS: UPreg QC Valid YES; Urine Pregnancy NEGATIVE (NEGATIVE)
--- NOTE | 2021-05-23 23:14 | PC.NURSE ---
c/o RLQ pain since last night. worse with movement
[2021-05-23] MEDS: Ketorolac Tromethamine 15 MG/ML VIAL IVPUSH (23:16)
[2021-05-23 23:21] LABS: UACC CULT YES
[2021-05-23 23:23] LABS: Bacteria Urine 2+ /LPF; Mucus Urine 2+ /LPF; Squamous Epithelial Cell Urine 2+ /LPF
[2021-05-23 23:26] LABS: Alanine Aminotransferase 161 U/L (0-31); Albumin Level 4.7 g/dL (3.5-5.0); Alkaline Phosphatase 97 U/L (39-117); Anion Gap 14 (12-20); Aspartate Amino Transferase 135 U/L (5-31); Bilirubin Direct 0.2 mg/dL (0.0-0.5); Bilirubin Total 0.6 mg/dL (0.0-1.0); Blood Urea Nitrogen 12 mg/dL (9-16); Calcium 9.1 mg/dL (8.4-10.2); Carbon Dioxide 25 mmol/L (22-29); Chloride 103 mmol/L (96-108); Creatinine Clr Calc Pharmacy 129.9; Estimated Glomerular Filt Rate > 60; Glucose Random 105 mg/dL (60-115); Lipase 20 U/L (8-78); Potassium 3.9 mmol/L (3.3-5.1); Sodium 138 mmol/L (135-145); Total Protein 8.7 g/dL (6.5-8.0)
[2021-05-24 01:04] VITALS: BP 113/63; PULSE 76; RESP 18
[2021-05-24] MEDS: Dicyclomine HCl 10 MG CAPSULE 20 MG PO (01:04)
== END 2021-05-24 01:10 | disposition home or self-care (01) ==
PROVIDERS: Emergency Provider Internal Medicine; PCP Nurse Practitioner Primary Care
DX: K58.9 Irritable bowel syndrome, unspecified (principal); R10.31 Right lower quadrant pain; Z79.899 Other long term (current) drug therapy
CPT/HCPCS: 36415; 74176; 80048; 80076; 81001; 81025; 83690; 85025; 87086; 96374; 99284; J1885

== ENCOUNTER 2021-08-13 14:09 | Emergency (ER) | payer MEDICAID, SELFPAY ==
[2021-08-13 14:24] VITALS: BP 115/96; PULSE 79; RESP 18; TEMP 36.9; O2SAT 98; BMI 43.5
--- NOTE | 2021-08-13 16:12 | ED_ITS ---
HPI - General Adult General Chief complaint: General Medical Stated complaint: abd pain into back Time Seen by Provider: 08/13/21 16:12 Source: patient Mode of arrival: ambulatory Limitations: no limitations History of Present Illness HPI narrative: History of chronic abdominal pain with fatty liver been here few times in the past last time was in 05/[address] scan of the abdomen showed fatty liver no gallstones or kidney stones this time comes for 1 week of nausea diffuse abdominal pain and diarrhea vomiting for few days not anymore also noticed cloudiness in the urine no frequency or dysuria also complaining of bilateral flank pain no fever no chills patient is eating okay otherwise no other family member sick Related Data Home Medications Medication Instructions Recorded Confirmed acetaminophen 500 mg tablet 500 mg PO QID PRN 06/01/20 12/30/20 (Tylenol Extra Strength) albuterol sulfate 90 mcg/actuation 1 inh INHALATION QID 06/01/20 12/30/20 aerosol inhaler (ProAir HFA) azelastine 205.5 mcg (0.15 %) 1 spray INTRANASAL BID 06/01/20 12/30/20 nasal spray diphenhydramine HCl 25 mg tablet 25 mg PO BEDTIME 06/01/20 12/30/20 (Benadryl Allergy) famotidine 40 mg tablet 40 mg PO DAILY 06/01/20 12/30/20 fluoxetine 40 mg capsule 40 mg PO DAILY 06/01/20 12/30/20 fluticasone propionate 100 1 inh INHALATION Q12H 06/01/20 12/30/20 mcg/actuation blister powder for inhalation (Flovent Diskus) ipratropium bromide 21 mcg (0.03 2 spray INTRANASAL BID 06/01/20 12/30/20 %) nasal spray loratadine 10 mg capsule 10 mg PO DAILY 06/01/20 12/30/20 mecobalamin (vitamin B12) 1,000 1,000 mcg PO DAILY 06/01/20 12/30/20 mcg chewable tablet montelukast 10 mg tablet 10 mg PO BEDTIME 06/01/20 12/30/20 (Singulair) psyllium 1 packet PO TID 06/01/20 12/30/20 risperidone 3 mg tablet 3 mg PO DAILY 06/01/20 12/30/20 trazodone 100 mg tablet 100 mg PO DAILY 06/01/20 12/30/20 Previous Rx's Medication Instructions Recorded iron,carbonyl 65 mg-vitamin C 125 1 tab PO DAILY #60 tab 07/15/ mg tablet,delayed release (Vitron-C) ondansetron HCl 4 mg tablet 4 mg PO Q6H PRN #14 tab 09/05/20 (Zofran) Tirosint 200 mcg capsule 200 mcg PO DAILY #30 cap NS 10/05/20 (levothyroxine) cholecalciferol (vitamin D3) 25 25 mcg PO DAILY #30 cap 10/07/20 mcg (1,000 unit) capsule (Vitamin D3) doxycycline monohydrate 100 mg 100 mg PO BID #14 cap 10/26/20 capsule cefuroxime axetil 500 mg tablet 500 mg PO Q12H #14 tab 12/07/20 linaclotide 290 mcg capsule 290 mcg PO DAILY #30 cap 12/12/20 (Linzess) omeprazole 20 mg capsule,delayed 20 mg PO DAILY #30 cap 12/12/20 release Tirosint 50 mcg capsule 50 mcg PO DAILY 30 Days #40 cap NS 02/17/21 (levothyroxine) dicyclomine 20 mg tablet 20 mg PO QID PRN #20 tab 05/24/21 dicyclomine 20 mg tablet 20 mg PO QID PRN #20 tab 08/13/21 Allergies Allergy/AdvReac Type Severity Reaction Status Date / Time Seasonal Allergies Allergy Sneezing Verified 02/07/21 14:09 Review of Systems Review of Systems: Yes all other systems are reviewed and are negative PMFSH Past Medical History Medical History ADHD Constipation Depression Elevated liver enzymes Hypothyroid Morbid obesity Obstructive sleep apnea Post-surgical hypothyroidism Rheumatoid arthritis Varicose veins of bilateral lower extremities with other complications Surgical History H/O prior ablation treatment (~2017) History of vein stripping (~2018) Hx of thyroidectomy Family History Family History Father No problems noted. Mother No problems noted. Brother No problems noted. Brother No problems noted. Brother No problems noted. Social History Social History Household Members: Family Household Members Other:: parents Alcohol intake: never Patient Tobacco Use Status: Never used Tobacco Use of substances other than those prescribed or required for medical reasons: No Advance Directives: No Advance Directives Information Provided: Yes Current occupational status: unemployed Physical Exam Vital Signs: Vital Signs: Last Vital Signs Temp 98.4 F 08/13/21 14:24 Pulse 79 08/13/21 14:24 Resp 18 08/13/21 14:24 BP 115/96 H 08/13/21 14:24 Pulse Ox 98 08/13/21 14:24 BMI result Body Mass Index 43.5 Appearance: Alert. Oriented X3. No acute distress. Obese Eyes: No pallor or icterus ENT: Pharynx normal. Oral Mucosa moist Neck: Normal inspection. Neck supple. CVS: Normal heart rate and rhythm. Pulses normal. Respiratory: No respiratory distress. Equal air entry bilateral, Abdomen: Soft mild diffuse tenderness upper abdomen no rebound tenderness or guarding Bowel sounds are present, no mass palpable, no CVA tenderness Skin: Skin warm and dry. Normal skin color. Normal skin turgor. Extremities: No lower extremity edema. No calf tenderness Neuro: Oriented X 3. Medical Decision Making MDM Narrative Medical decision making narrative: Patient nonspecific abdominal pain for longstanding likely IBS will discharge patient home on [place] Lab Data Lab results reviewed: Yes I reviewed the patient's lab results. Result diagrams: 08/13/21 17:57 08/13/21 17:57 Labs: Lab Results 08/13/21 08/13/21 08/13/21 Range/Units 17:57 17:57 17:57 WBC 9.6 (4.8-10.8) X10*3/uL RBC 4.40 (4.20-5.50) X10*6/uL Hgb 10.0 L (12.0-16.0) g/dl Hct 33.5 L (37.0-47.0) % MCV 76.1 L (80.0-98.0) fL MCH 22.7 L (27.0-33.0) pg MCHC 29.9 L (31.0-35.0) g/dl RDW 17.8 H (11.0-16.0) % Plt Count 201 (160-400) X10*3/uL MPV 12.4 H (9.4-12.3) fL Immature Gran % (Auto) 0.9 H (0.0-0.4) % Neut % (Auto) 67.0 (45-73) % Lymph % (Auto) 22.9 (20-40) % [place] % (Auto) 7.1 (2-11) % Eos % (Auto) 1.6 (0-4) % Baso % (Auto) 0.5 (0-2) % Lymph # (Auto) 2.2 (1.2-4.9) X10*3/uL [place] # (Auto) 0.7 (0.1-1.2) X10*3/uL Eos # (Auto) 0.2 (0.0-0.4) X10*3/uL Baso # (Auto) 0.1 (0.0-0.2) X10*3/uL Abs Immat Gran (auto) 0.09 H (0.00-0.03) X10*3/uL Absolute Neuts (auto) 6.4 (2.0-8.3) x10*3/uL Absolute Nucleated RBC 0.000 (0.0-0.012) X10*3/uL Nucleated RBC % (auto) 0.0 (0.0-0.2) /100WBC Sodium 135 (135-145) mmol/L Potassium 3.8 (3.3-5.1) mmol/L Chloride 99 (96-108) mmol/L Carbon Dioxide 25 (22-29) mmol/L Anion Gap 15 (12-20) BUN 16 (9-16) mg/dL Creatinine 1.02 (0.5-1.4) mg/dL Estim Creat Clear Calc 108.6 Estimated GFR > 60 Random Glucose 140 H (60-115) mg/dL Calcium 9.8 D (8.4-10.2) mg/dL Total Bilirubin 0.4 (0.0-1.0) mg/dL Direct Bilirubin < 0.2 (0.0-0.5) mg/dL AST 189 H (5-31) U/L ALT 141 H (0-31) U/L Alkaline Phosphatase 80 (39-117) U/L Total Protein 8.5 H (6.5-8.0) g/dL Albumin 4.5 (3.5-5.0) g/dL Lipase 32 (8-78) U/L Urine Color YELLOW Urine Appearance HAZY Urine pH 6.0 (5.0-8.0) Ur Specific [place] 1.020 (1.005-1.025) Urine Protein TRACE (NEG-TRACE) MG/DL Urine Glucose (UA) NEG (NEG) MG/DL Urine Ketones NEG (NEG) MG/DL Urine Blood TRACE (NEG) Urine Nitrite NEG (NEG) Ur Leukocyte Esterase 2+ H (NEG) Urine RBC 0-2 (0) /HPF Urine WBC 5-9 H (0-4) /HPF Ur Squamous Epith Cells 2+ /LPF Urine Bacteria 3+ /LPF Discharge Plan Discharge Clinical Impression: Abdominal pain Qualifiers: Abdominal location: generalized Qualified Code(s): R10.84 - Generalized abdominal pain Patient Disposition: Home, Self-Care Instructions: Abdominal Pain (ED) Additional Instructions: Avoid fried food Take medication as prescribed for pain Prescriptions: New dicyclomine 20 mg tablet 20 mg PO QID PRN (Reason: Abdominal Discomfort) Qty: 20 RF: 0 No Action iron,carbonyl-vitamin C [Vitron-C] 65 mg iron- 125 mg tablet,delayed release (DR/EC) 1 tab PO DAILY Qty: 60 RF: 6 levothyroxine [Tirosint] 200 mcg capsule 200 mcg PO DAILY Qty: 30 RF: 6 cholecalciferol (vitamin D3) [Vitamin D3] 25 mcg (1,000 unit) capsule 25 mcg PO DAILY Qty: 30 RF: 6 levothyroxine [Tirosint] 50 mcg capsule 50 mcg PO DAILY 30 Days Qty: 40 RF: 6 ondansetron HCl [Zofran] 4 mg tablet 4 mg PO Q6H PRN (Reason: nausea and vomiting) Qty: 14 RF: 0 doxycycline monohydrate 100 mg capsule 100 mg PO BID Qty: 14 RF: 0 cefuroxime axetil 500 mg tablet 500 mg PO Q12H Qty: 14 RF: 0 dicyclomine 20 mg tablet 20 mg PO QID PRN (Reason: abdominal pain) Qty: 20 RF: 0 fluoxetine 40 mg capsule 40 mg PO DAILY RF: 0 trazodone 100 mg tablet 100 mg PO DAILY RF: 0 risperidone 3 mg tablet 3 mg PO DAILY RF: 0 Flovent Diskus 100 mcg/actuation blister with device 1 inh inhalation Q12H RF: 0 ipratropium bromide 0.03 % spray,non-aerosol 2 spray intranasal BID RF: 0 azelastine 0.15 % (205.5 mcg) spray,non-aerosol 1 spray intranasal BID RF: 0 diphenhydramine HCl [Benadryl Allergy] 25 mg tablet 25 mg PO BEDTIME RF: 0 famotidine 40 mg tablet 40 mg PO DAILY RF: 0 loratadine 10 mg capsule 10 mg PO DAILY RF: 0 psyllium Packet 1 packet PO TID RF: 0 albuterol sulfate [ProAir HFA] 90 mcg/actuation HFA aerosol inhaler 1 inh inhalation QID RF: 0 montelukast [Singulair] 10 mg tablet 10 mg PO BEDTIME RF: 0 acetaminophen [Tylenol Extra Strength] 500 mg tablet 500 mg PO QID PRN (Reason: Pain) RF: 0 mecobalamin (vitamin B12) 1,000 mcg tablet,chewable 1,000 mcg PO DAILY RF: 0 omeprazole 20 mg capsule,delayed release(DR/EC) 20 mg PO DAILY Qty: 30 RF: 2 Linzess 290 mcg capsule 290 mcg PO DAILY Qty: 30 RF: 2
[2021-08-13] MEDS: Dicyclomine HCl 10 MG CAPSULE 20 MG PO (17:09)
[2021-08-13 18:02] LABS: MANUAL DIFF FLAG NO
[2021-08-13 18:04] LABS: Appearance Urine HAZY; Color Urine YELLOW; Glucose Urine UA NEG (NEG); Leukocyte Esterase Urine 2+ (NEG); Nitrite Urine NEG (NEG); UACC Culture Trigger YES; Urine Blood TRACE (NEG); Urine Ketones NEG (NEG); Urine Protein TRACE MG/DL (NEG-TRACE)
[2021-08-13 18:13] LABS: Bacteria Urine 3+ /LPF; RBC Urine 0-2 /HPF (0); Squamous Epithelial Cell Urine 2+ /LPF
[2021-08-13 18:18] LABS: Basophils Absolute Auto 0.1 X10*3/uL (0.0-0.2); Basophils Percent Auto 0.5 % (0-2); Eosinophils Absolute Auto 0.2 X10*3/uL (0.0-0.4); Eosinophils Percent Auto 1.6 % (0-4); Hematocrit 33.5 % (37.0-47.0); Imm Gran Abs Auto 0.09 X10*3/uL (0.00-0.03); Imm Gran Pct Auto 0.9 % (0.0-0.4); Lymphocytes Absolute Auto 2.2 X10*3/uL (1.2-4.9); Lymphocytes Percent Auto 22.9 % (20-40); Mean Corpuscular HGB Conc 29.9 g/dl (31.0-35.0); Mean Corpuscular Hemoglobin 22.7 pg (27.0-33.0); Mean Corpuscular Volume 76.1 fL (80.0-98.0); Mean Platelet Volume 12.4 fL (9.4-12.3); Monocytes Absolute Auto 0.7 X10*3/uL (0.1-1.2); Monocytes Percent Auto 7.1 % (2-11); Neutrophils Absolute Auto 6.4 x10*3/uL (2.0-8.3); Platelet Count 201 X10*3/uL (160-400); Red Cell Distribution Width 17.8 % (11.0-16.0); White Blood Count 9.6 X10*3/uL (4.8-10.8)
[2021-08-13 18:21] LABS: Alanine Aminotransferase 141 U/L (0-31); Albumin Level 4.5 g/dL (3.5-5.0); Alkaline Phosphatase 80 U/L (39-117); Anion Gap 15 (12-20); Aspartate Amino Transferase 189 U/L (5-31); Bilirubin Direct < 0.2 mg/dL (0.0-0.5); Bilirubin Total 0.4 mg/dL (0.0-1.0); Blood Urea Nitrogen 16 mg/dL (9-16); Calcium 9.8 mg/dL (8.4-10.2); Carbon Dioxide 25 mmol/L (22-29); Chloride 99 mmol/L (96-108); Creatinine Clr Calc Pharmacy 108.6; Estimated Glomerular Filt Rate > 60; Glucose Random 140 mg/dL (60-115); Lipase 32 U/L (8-78); Potassium 3.8 mmol/L (3.3-5.1); Sodium 135 mmol/L (135-145); Total Protein 8.5 g/dL (6.5-8.0)
== END 2021-08-13 19:05 | disposition home or self-care (01) ==
PROVIDERS: Emergency Provider Internal Medicine; PCP Nurse Practitioner Primary Care
DX: R10.84 Generalized abdominal pain (principal)
CPT/HCPCS: 36415; 80048; 80076; 81001; 83690; 85025; 87086; 99283; 99284

== ENCOUNTER 2021-09-01 09:48 | Outpatient (REF) | payer MEDICAID, SELFPAY | END 2021-09-01 09:49 | disposition home or self-care (01) | LOC: HO.LAB 09:48 | PROVIDERS: PCP Nurse Practitioner Primary Care; Visit Provider Nurse Practitioner Primary Care | DX: Z13.89 Encounter for screening for other disorder (principal) ==

== ENCOUNTER → 2021-09-20 12:49 | Outpatient (BNVA) | payer MEDICAID, SELFPAY | PROVIDERS: PCP Nurse Practitioner Primary Care; Visit Provider Nurse Practitioner Gerontology ==

== ENCOUNTER 2021-09-21 11:02 | Outpatient (REF) | payer MEDICAID, SELFPAY ==
[2021-09-21 11:41] LABS: Estimated Average Glucose 154 mg/dL
[2021-09-21 12:12] LABS: Cholesterol 256 mg/dL; HDL Cholesterol 34 mg/dL; LDL Cholesterol Calculated 186 mg/dl; Triglycerides 183 mg/dL
[2021-09-21 12:51] LABS: Thyroid Stimulating Hormone > 100.00 uIU/mL (0.32-4.0)
== END 2021-09-21 11:03 | disposition home or self-care (01) ==
LOC: HO.LAB 11:02
PROVIDERS: Absent Provider Registered Nurse; PCP Nurse Practitioner Primary Care; Visit Provider Nurse Practitioner Gerontology
DX: E89.0 Postprocedural hypothyroidism (principal); F33.3 Major depressive disorder, recurrent, severe with psychotic symptoms; E66.9 Obesity, unspecified
CPT/HCPCS: 36415; 80061; 83036; 84439; 84443

== ENCOUNTER 2021-11-08 09:02 | Outpatient (REF) | payer MEDICAID, SELFPAY ==
[2021-11-08 11:56] LABS: C Reactive Protein 0.95 mg/dL (< or = 0.50)
[2021-11-08 12:05] LABS: Free T4 (Free Thyroxine) 0.61 ng/dL (0.71-1.85)
[2021-11-08 12:19] LABS: Folate 10.6 ng/mL (> or = 4.0); Vitamin B12 571 pg/mL (200-900)
[2021-11-08 12:46] LABS: Thyroid Stimulating Hormone > 100.00 uIU/mL (0.32-4.0)
[2021-11-09 21:22] LABS: Transglutaminase Ab IgG <1.0 U/mL; Transglutaminase IgA <1.0 U/mL
[2021-11-12 16:52] LABS: Vitamin D 25-OH, D2 <4 ng/mL; Vitamin D 25-OH, D3 19 ng/mL; Vitamin D 25-OH, Total 19 ng/mL (30-100)
== END 2021-11-08 09:03 | disposition home or self-care (01) ==
LOC: HO.LAB 09:02
PROVIDERS: Absent Provider Nurse Practitioner Gerontology; PCP Nurse Practitioner Primary Care; Referring Provider Family Medicine; Visit Provider Nurse Practitioner Family
DX: R10.11 Right upper quadrant pain (principal); E55.9 Vitamin D deficiency, unspecified; K58.9 Irritable bowel syndrome, unspecified; R14.0 Abdominal distension (gaseous); R19.7 Diarrhea, unspecified; E03.9 Hypothyroidism, unspecified
CPT/HCPCS: 36415; 82306; 82607; 82746; 84439; 84443; 86140; 86364; 99212

== ENCOUNTER 2021-11-13 07:11 | Outpatient (REF) | payer MEDICAID, SELFPAY ==
[2021-11-13 08:40] LABS: Free T4 (Free Thyroxine) 0.51 ng/dL (0.71-1.85)
[2021-11-13 08:41] LABS: Thyroid Stimulating Hormone > 100.00 uIU/mL (0.32-4.0)
[2021-11-13 11:41] LABS: Free T4 (Free Thyroxine) 1.07 ng/dL (0.71-1.85); Thyroid Stimulating Hormone > 100.00 uIU/mL (0.32-4.0)
== END 2021-11-13 07:12 | disposition home or self-care (01) ==
LOC: HO.LAB 07:11
PROVIDERS: PCP Nurse Practitioner Primary Care; Visit Provider Nurse Practitioner Gerontology
DX: E89.0 Postprocedural hypothyroidism (principal)
CPT/HCPCS: 36415; 84439; 84443

== ENCOUNTER → 2021-12-11 10:15 | Outpatient (REF) | payer MEDICAID, SELFPAY ==
--- NOTE | ~2021-12-11 | NM_ITS ---
EXAMINATION: NM BILIARY TRACT WITH ORAL FATTY MEAL CLINICAL INFORMATION: Right upper quadrant pain. COMPARISON: No previous biliary scan is available for comparison. The diagnostic CT scan of the abdomen and pelvis, dated 05/23/2021, is available for comparison. Abdominal ultrasound dated 12/07/2020 is also available for comparison. TECHNIQUE: Serial gamma scintillation camera images were obtained over the abdomen for a total observation period of 125 minutes following the intravenous administration of 5 mCi Tc-99m Mebrofenin. FINDINGS: There is good concentration of activity in the liver by 5 minutes post injection. Biliary activity is visualized by 10 minutes. The gallbladder is well visualized by 45 minutes. Small bowel is well visualized by 25 minutes. At 6 minutes post Mebrofenin injection, 8 ounces of Ensure-plus Brand was administered orally and an additional 60 minutes of images were obtained. There is good emptying of the gallbladder following ingestion of the fatty meal. At the end of the study there is good clearance of activity from the liver and visualization of diffuse small bowel activity. The calculated gallbladder ejection fraction is 73% (normal gallbladder ejection fraction using Ensure supplement orally is greater than 33%). NM/NM hepatobiliary wo pharm IMPRESSION: Visualization of the gallbladder is evidence of a patent cystic duct and strong evidence against the diagnosis of acute cholecystitis. The common bile duct is patent. Gallbladder emptying and ejection fraction are normal. Liver function appears normal.
== END ==
LOC: HO.NUCMED 10:15
PROVIDERS: PCP Nurse Practitioner Primary Care; Visit Provider Nurse Practitioner Family
DX: R10.11 Right upper quadrant pain (principal)
CPT/HCPCS: 78226; A9537

== ENCOUNTER 2021-12-11 13:03 | Emergency (ER) | payer MEDICAID, SELFPAY ==
--- NOTE | ~2021-12-11 | XR_ITS ---
EXAMINATION: XR HAND, RIGHT CLINICAL INFORMATION: Pain post fall COMPARISON: None TECHNIQUE: PA, lateral, and oblique views of the right hand. FINDINGS: There is a minimally displaced fracture of the proximal phalanx of the thumb intra-articular with the MCP joint. No other fracture is seen. Joint spaces are otherwise normal. Soft tissues are normal. XR/XR hand RT 2V IMPRESSION: Minimally displaced fracture of the proximal phalanx of the thumb intra-articular with the MCP joint.
[2021-12-11 13:40] VITALS: BP 128/75; PULSE 94; RESP 18; TEMP 37; O2SAT 97; BMI 46.1
--- NOTE | 2021-12-11 13:43 | ED.EXTPRO ---
HPI - Extremity Problem General Chief complaint: Extremity Injury, Upper Stated complaint: fell down stairs r hand inj Time Seen by Provider: 12/11/21 13:43 Source: patient Mode of arrival: ambulatory Limitations: no limitations History of Present Illness HPI Narrative: Patient is a 31 year old female presenting to the emergency department today with right thumb pain. Patient states that she fell down 5 basement stairs yesterday and hurt her right hand. Patient states that her right thumb is what is bothering her the most. Patient denies hitting her head in the incident. Patient denies any loss of consciousness with the incident. Patient denies any dizziness, lightheadedness, abdominal pain, nausea, vomiting, fever, chills, blurry vision, double vision, loss of vision, chest pain, difficulty breathing, shortness of breath, back pain, night sweats, pain with urination, increased urinary frequency, increased urinary urgency, blood in her urine or stool, syncope or a near syncopal episode, bowel incontinence, bladder incontinence, bowel retention, bladder retention, or any other complaints at this time. MD Complaint: extremity pain Onset (ago): day(s) Pain Consistency: constant Location: right and other (thumb) Severity scale (1-10): 3 Quality: dull Radiation: none Relieving factors: nothing Exacerbating factors: nothing Associated symptoms: denies other symptoms Related Data Home Medications Medication Instructions Recorded Confirmed acetaminophen 500 mg tablet 500 mg PO QID PRN 06/01/20 12/30/20 (Tylenol Extra Strength) albuterol sulfate 90 mcg/actuation 1 inh INHALATION QID 06/01/20 12/30/20 aerosol inhaler (ProAir HFA) azelastine 205.5 mcg (0.15 %) 1 spray INTRANASAL BID 06/01/20 12/30/20 nasal spray diphenhydramine HCl 25 mg tablet 25 mg PO BEDTIME 06/01/20 12/30/20 (Benadryl Allergy) famotidine 40 mg tablet 40 mg PO DAILY 06/01/20 12/30/20 fluoxetine 40 mg capsule 40 mg PO DAILY 06/01/20 12/30/20 fluticasone propionate 100 1 inh INHALATION Q12H 06/01/20 12/30/20 mcg/actuation blister powder for inhalation (Flovent Diskus) ipratropium bromide 21 mcg (0.03 2 spray INTRANASAL BID 06/01/20 12/30/20 %) nasal spray loratadine 10 mg capsule 10 mg PO DAILY 06/01/20 12/30/20 mecobalamin (vitamin B12) 1,000 1,000 mcg PO DAILY 06/01/20 09/20/21 mcg chewable tablet montelukast 10 mg tablet 10 mg PO BEDTIME 06/01/20 12/30/20 (Singulair) psyllium 1 packet PO TID 06/01/20 12/30/20 risperidone 3 mg tablet 3 mg PO DAILY 06/01/20 12/30/20 trazodone 100 mg tablet 100 mg PO DAILY 06/01/20 12/30/20 ascorbic acid (vitamin C) 250 mg 250 mg PO Q OTHER DAY 11/08/21 tablet bupropion HCl 100 mg tablet,12 hr 100 mg PO BID 11/08/21 sustained-release fluticasone propionate 50 2 spray INTRANASAL DAILY 11/08/21 mcg/actuation nasal spray,suspension omeprazole 40 mg capsule,delayed 40 mg PO BID 11/08/21 release risperidone 2 mg tablet 2 mg PO BEDTIME 11/08/21 Previous Rx's Medication Instructions Recorded iron,carbonyl 65 mg-vitamin C 125 1 tab PO DAILY #60 tab 07/15/ mg tablet,delayed release (Vitron-C) ondansetron HCl 4 mg tablet 4 mg PO Q6H PRN #14 tab 09/05/20 (Zofran) cholecalciferol (vitamin D3) 25 25 mcg PO DAILY #30 cap 10/07/20 mcg (1,000 unit) capsule (Vitamin D3) doxycycline monohydrate 100 mg 100 mg PO BID #14 cap 10/26/20 capsule cefuroxime axetil 500 mg tablet 500 mg PO Q12H #14 tab 12/07/20 linaclotide 290 mcg capsule 290 mcg PO DAILY #30 cap 12/12/20 (Linzess) omeprazole 20 mg capsule,delayed 20 mg PO DAILY #30 cap 12/12/20 release dicyclomine 20 mg tablet 20 mg PO QID PRN #20 tab 05/24/21 dicyclomine 20 mg tablet 20 mg PO QID PRN #20 tab 08/13/21 methylcellulose (laxative) 500 mg 500 mg PO DAILY #30 tab 11/08/21 tablet (Citrucel) sennosides 8.6 mg tablet (Natural 17.2 mg PO BEDTIME #60 tab 11/08/21 Senna Laxative) levothyroxine 175 mcg capsule 175 mcg PO DAILY 30 Days #30 cap 11/13/21 (Tirosint) Allergies Allergy/AdvReac Type Severity Reaction Status Date / Time Seasonal Allergies Allergy Sneezing Verified 11/08/21 09:17 Review of Systems Constitutional: Constitutional: Reports no additional constitutional complaints, Denies chills, Denies fever(s) and Denies night sweats Eyes: Eyes: Reports no additional eye complaints, Denies blurry vision, Denies change in vision, Denies diplopia, Denies eye discharge, Denies loss of vision and Denies eye pain ENT: Denies dizziness Cardiovascular: Cardiovascular: Reports no additional cardiovascular complaints, Denies chest pain, Denies lightheadedness, Denies Loss of Consciousness and Denies dyspnea Respiratory: Respiratory: Reports no additional respiratory complaints and Denies dyspnea Gastrointestinal: Gastrointestinal: Reports no additional gastrointestinal complaints, Denies abdominal pain, Denies melena, Denies hematochezia, Denies change in bowel habits and Denies change in stool character Genitourinary: Genitourinary: Denies hematuria, Denies urinary frequency, Denies dysuria, Denies urinary incontinence, Denies urinary hesitancy and Denies urinary urgency Musculoskeletal: Musculoskeletal: Reports no additional musculoskeletal complaints, Denies numbness and Denies tingling Comments: right thumb pain Neurologic: Denies dizziness, Denies loss of vision, Denies numbness and Denies tingling Psychiatric: Psychiatric: Reports no additional psychiatric complaints Endocrine: Endocrine: Reports no additional endocrine complaints Hematologic/Lymphatic: Hematologic/Lymphatic: Reports no additional hematologic/lymphatic complaints Allergic/Immunologic: Allergic/Immunologic: Reports no additional allergic/immunologic complaints PMFSH Past Medical History Attestation statement: The following information was validated with the patient. Source: old records reviewed Medical History ADHD Constipation Depression Elevated liver enzymes Hypothyroid Morbid obesity Obstructive sleep apnea Post-surgical hypothyroidism Rheumatoid arthritis Varicose veins of bilateral lower extremities with other complications Surgical History H/O prior ablation treatment (~2017) History of vein stripping (~2018) Hx of thyroidectomy Family History Family History Father No problems noted. Mother No problems noted. Brother No problems noted. Brother No problems noted. Brother No problems noted. Social History Social History Household Members: Family Household Members Other:: parents Alcohol intake: never Patient Tobacco Use Status: Never used Tobacco Advance Directives: No Advance Directives Information Provided: Yes Patient : No Current occupational status: unemployed Physical Exam Vital Signs: Vital Signs: Last Vital Signs Temp 98.6 F 12/11/21 13:40 Pulse 94 12/11/21 13:40 Resp 18 12/11/21 13:40 BP 128/75 12/11/21 13:40 Pulse Ox 97 12/11/21 13:40 BMI result Body Mass Index 46.1 Const: General: cooperative, no acute distress, alert and awake Nutritional Appearance: well nourished Orientation/consciousness: patient oriented x3 Limitations: no limitations HEENT: Head: Yes normal to inspection and Yes atraumatic Ears: hearing grossly normal bilaterally and external ears normal General nose exam: Normal external nose present, no nasal discharge noted and no epistaxis Face and sinus: Yes normal facial exam, No abrasion and No laceration Mouth: Normal oral and palatal mucosa present, no drooling and no muffled voice Eyes: General: appearance normal, both eyes and all related structures Periorbital: periorbital findings normal Eyelids: Yes eyelids normal Conjunctivae: conjunctivae normal Pupils: Equal, round and reactive pupils present EOM: EOMs intact bilaterally Neck: Neck: Yes normal visual inspection, Yes full ROM and Yes no lymphadenopathy Chest: Chest palpation & inspection: normal inspection of the chest Resp: Effort & Inspection: normal respiratory effort and able to speak in complete sentences Auscultation: clear to auscultation bilaterally Cardio: Rate: regular rate Rhythm: regular rhythm GI: Inspection: Yes normal to inspection Neuro: General: patient oriented x3 and moves all extremities Cranial nerves: Yes Equal, round and reactive pupils present Cognition (Neuro): normal cognition Motor exam (neuro): 5/5 motor strength present throughout Sensory Exam: Normal double simultaneous stimulation for sensation Coordination: [id number] test normal Extrem: Other: minimal swelling to the base of the right thumb General: Yes full ROM and Yes capillary refill normal Psych: Appearance: grossly normal Mental Status: mental status grossly normal Affect: normal affect Attitude: cooperative Thought process: Normal thought process present Thought content: Normal thought content present Insight: Good insight present (Psych) MDM - Extremity (Nontraumatic) MDM Narrative Medical decision making narrative: Patient is a 31 year old female presenting to the emergency department today with right thumb pain. Patient's physical exam showed minimal swelling to the base of the right thumb but was otherwise unremarkable. Patient's right hand x-ray showed an acute fracture. I explained my physical exam findings as well as all test results to the patient. I answered all questions asked by the patient. Patient's right thumb was placed in a thumb spica splint. Patient's PMS was intact prior to and after splint placement. I stressed the importance of the patient taking her medication as prescribed. I stressed the importance of the patient following up with her primary care provider and an orthopedist. I stressed the importance of the patient returning to the emergency department immediately if her symptoms were to worsen or if she were to develop any dizziness, shortness of breath, difficulty breathing, chest pain, blurry vision, loss of vision, nausea, vomiting, abdominal pain, fever, chills, back pain, or any other complaints. Patient verbalized agreement and understanding with this treatment plan and discharge. Differential Diagnosis Differential diagnosis: Unlikely gout (thumb fracture, hand injury) Medical Records Attestation: I reviewed the patient's medical records. Imaging Data Hand x-ray (right): Attestation: I personally reviewed and interpreted this imaging study as follows: My impression: Acute fracture of the proximal thumb phalanx. Radiologist's impression: EXAMINATION: XR HAND, RIGHT CLINICAL INFORMATION: Pain post fall? COMPARISON: None? TECHNIQUE: PA, lateral, and oblique views of the right hand. FINDINGS: There is a minimally displaced fracture of the proximal phalanx of the thumb intra-articular with the MCP joint. No other fracture is seen. Joint spaces are otherwise normal. Soft tissues are normal.? XR/XR hand RT 2V IMPRESSION: Minimally displaced fracture of the proximal phalanx of the thumb intra-articular with the MCP joint. Dictated By: Lauren Berg MD Signed By: Electronically signed by Lauren Berg MD 12/11/21 1455 Procedures Orthopedic Splinting/Casting Injury #1: Side: right Upper Extremity Injury Location: finger Upper Extremity Immobilizer: wrist splint Discharge Plan Discharge Clinical Impression: Avulsion fracture of thumb Patient Disposition: Home, Self-Care Instructions: Thumb Fracture (ED) Additional Instructions: Call to schedule a follow up appointment with an Orthopedic provider. Follow up with your primary care provider. Return to the emergency department immediately if your symptoms worsen or if you develop any dizziness, shortness of breath, difficulty breathing, chest pain, blurry vision, loss of vision, nausea, vomiting, abdominal pain, fever, chills, back pain, or any other complaints. Prescriptions: No Action iron,carbonyl-vitamin C [Vitron-C] 65 mg iron- 125 mg tablet,delayed release (DR/EC) 1 tab PO DAILY Qty: 60 6RF cholecalciferol (vitamin D3) [Vitamin D3] 25 mcg (1,000 unit) capsule 25 mcg PO DAILY Qty: 30 6RF levothyroxine [Tirosint] 175 mcg capsule 175 mcg PO DAILY 30 Days Qty: 30 3RF ondansetron HCl [Zofran] 4 mg tablet 4 mg PO Q6H PRN (Reason: nausea and vomiting) Qty: 14 0RF doxycycline monohydrate 100 mg capsule 100 mg PO BID Qty: 14 0RF cefuroxime axetil 500 mg tablet 500 mg PO Q12H Qty: 14 0RF dicyclomine 20 mg tablet 20 mg PO QID PRN (Reason: abdominal pain) Qty: 20 0RF dicyclomine 20 mg tablet 20 mg PO QID PRN (Reason: Abdominal Discomfort) Qty: 20 0RF fluoxetine 40 mg capsule 40 mg PO DAILY 0RF trazodone 100 mg tablet 100 mg PO DAILY 0RF risperidone 3 mg tablet 3 mg PO DAILY 0RF Flovent Diskus 100 mcg/actuation blister with device 1 inh inhalation Q12H 0RF ipratropium bromide 0.03 % spray,non-aerosol 2 spray intranasal BID 0RF Rx Instructions: administer into each nostril azelastine 0.15 % (205.5 mcg) spray,non-aerosol 1 spray intranasal BID 0RF Rx Instructions: administer into each nostril diphenhydramine HCl [Benadryl Allergy] 25 mg tablet 25 mg PO BEDTIME 0RF famotidine 40 mg tablet 40 mg PO DAILY 0RF loratadine 10 mg capsule 10 mg PO DAILY 0RF psyllium Packet 1 packet PO TID 0RF Rx Instructions: mix into at least 8 oz of water or juice before administering albuterol sulfate [ProAir HFA] 90 mcg/actuation HFA aerosol inhaler 1 inh inhalation QID 0RF montelukast [Singulair] 10 mg tablet 10 mg PO BEDTIME 0RF acetaminophen [Tylenol Extra Strength] 500 mg tablet 500 mg PO QID PRN (Reason: Pain) 0RF mecobalamin (vitamin B12) 1,000 mcg tablet,chewable 1,000 mcg PO DAILY 0RF omeprazole 20 mg capsule,delayed release(DR/EC) 20 mg PO DAILY Qty: 30 2RF Linzess 290 mcg capsule 290 mcg PO DAILY Qty: 30 2RF fluticasone propionate 50 mcg/actuation spray,suspension 2 spray intranasal DAILY 0RF ascorbic acid (vitamin C) 250 mg tablet 250 mg PO Q OTHER DAY 0RF risperidone 2 mg tablet 2 mg PO BEDTIME 0RF omeprazole 40 mg capsule,delayed release(DR/EC) 40 mg PO BID 0RF bupropion HCl 100 mg tablet sustained-release 12 hr 100 mg PO BID 0RF Citrucel 500 mg tablet 500 mg PO DAILY Qty: 30 2RF Rx Instructions: take it with full glass of water sennosides [Natural Senna Laxative] 8.6 mg tablet 17.2 mg PO BEDTIME Qty: 60 2RF Referrals: [facility] [place]Provider Group] (Call to follow up with an orthopedic provider. ) Bernadine Ramos NP [Primary Care Provider] - Print Language: Chinese
== END 2021-12-11 15:26 | disposition home or self-care (01) ==
PROVIDERS: Emergency Provider Emergency Medicine; PCP Nurse Practitioner Primary Care
DX: S62.511A Displaced fracture of proximal phalanx of right thumb, initial encounter for closed fracture (principal); W10.9XXA Fall (on) (from) unspecified stairs and steps, initial encounter; Y93.9 Activity, unspecified; Y92.018 Other place in single-family (private) house as the place of occurrence of the external cause; Y99.9 Unspecified external cause status
CPT/HCPCS: 29125; 73120; 99282; 99284

== ENCOUNTER 2021-12-13 08:13 | Outpatient (REF) | payer MEDICAID, SELFPAY ==
--- NOTE | ~2021-12-13 | XR_ITS ---
EXAMINATION: XR HAND, RIGHT CLINICAL INFORMATION: Pain COMPARISON: X-ray 12/11/2021 TECHNIQUE: PA, lateral, and oblique views of the right hand. FINDINGS: Mildly displaced intra-articular fracture of the ulnar aspect of the first metacarpal proximal base. Stable degree of displacement and alignment. The fracture is likely at the insertion site of the ulna collateral ligament. No additional fractures identified. Joint spaces are maintained. XR/XR hand RT min 3V IMPRESSION: Mildly displaced intra-articular fracture of the ulnar aspect of the first metacarpal proximal base, similar in degree of displacement and alignment. Fracture is likely at insertion site of the ulna collateral ligament. Recommend orthopedic consultation. The report will be called to the ordering clinician by a [place] [facility] [employer] Pump Installer.
== END 2021-12-13 08:14 | disposition home or self-care (01) ==
LOC: HO.HOSX 08:13
PROVIDERS: Visit Provider Orthopaedic Surgery
DX: S62.511A Displaced fracture of proximal phalanx of right thumb, initial encounter for closed fracture (principal)
CPT/HCPCS: 29075; 73130; 99202

== ENCOUNTER 2022-01-03 08:58 | Outpatient (REF) | payer MEDICAID, SELFPAY ==
--- NOTE | ~2022-01-03 | XR_ITS ---
EXAMINATION: XR HAND, RIGHT CLINICAL INFORMATION: Right hand pain. COMPARISON: 12/13/2021 and 12/11/2021. TECHNIQUE: PA, lateral, and oblique views of the right hand. FINDINGS: There is no change in alignment of intra-articular fracture involving the ulnar base of the 1st proximal phalanx. There may be some degree of bony union about the central aspect of the fracture site. Right hand joint spaces are maintained. XR/XR hand RT min 3V IMPRESSION: No change in alignment of healing fracture which is intra-articular involving the ulnar aspect base of the 1st proximal phalanx.
== END 2022-01-03 08:59 | disposition home or self-care (01) ==
LOC: HO.HOSX 08:58
PROVIDERS: Visit Provider Orthopaedic Surgery
DX: M79.641 Pain in right hand (principal); S62.511A Displaced fracture of proximal phalanx of right thumb, initial encounter for closed fracture; X58.XXXA Exposure to other specified factors, initial encounter; Y93.9 Activity, unspecified; Y92.9 Unspecified place or not applicable; Y99.8 Other external cause status; J30.2 Other seasonal allergic rhinitis
CPT/HCPCS: 73130; 99212

== ENCOUNTER → 2022-01-10 10:32 | Outpatient (BNVA) | payer MEDICAID, SELFPAY | PROVIDERS: PCP Nurse Practitioner Primary Care; Visit Provider Internal Medicine | DX: Z13.89 Encounter for screening for other disorder (principal) ==

== ENCOUNTER 2022-01-24 09:36 | Outpatient (REF) | payer MEDICAID, SELFPAY ==
--- NOTE | ~2022-01-24 | XR_ITS ---
EXAMINATION: XR HAND, RIGHT CLINICAL INFORMATION: Pain. COMPARISON: Right hand 01/03/2022 and 12/11/2021. TECHNIQUE: PA, lateral, and oblique views of the right hand. FINDINGS: Small avulsion fracture base of proximal phalanx first digit is again visualized but unchanged. No callus formation seen. The soft tissues are normal. XR/XR hand RT min 3V IMPRESSION: No change in the small avulsion fracture base of proximal phalanx first digit compared to several x-rays from 01/04/2020 and 12/12/19.
== END 2022-01-24 09:37 | disposition home or self-care (01) ==
LOC: HO.HOSX 09:36
PROVIDERS: Visit Provider Orthopaedic Surgery
DX: S62.511D Displaced fracture of proximal phalanx of right thumb, subsequent encounter for fracture with routine healing (principal)
CPT/HCPCS: 73130; 99212

== ENCOUNTER 2022-02-20 12:16 | Emergency (ER) | payer MEDICAID, SELFPAY ==
[2022-02-20 12:36] VITALS: BP 138/88; PULSE 92; RESP 18; TEMP 36.8; O2SAT 97; BMI 39.5
--- NOTE | 2022-02-20 13:35 | ED_ITS ---
HPI - General Adult General Chief complaint: GI Bleed Stated complaint: blood clots Time Seen by Provider: 02/20/22 12:59 Source: patient Mode of arrival: ambulatory Limitations: no limitations History of Present Illness HPI narrative: 31-year-old female here with reports of bleeding from the rectum for the last few days. Patient tells me she has chronic constipation and history of hemorrhoids. She noticed several days ago after wiping she noticed blood on the toilet paper. She was having a lot of rectal pain at that time. Patient reports 2 days ago the pain got very severe and then it improved. After her pain improved she started to noticed increasing bleeding on the toilet paper with clots. Patient denies any abdominal pain, vomiting. Patient is not on any anticoagulation Related Data Home Medications Medication Instructions Recorded Confirmed acetaminophen 500 mg tablet 500 mg PO QID PRN Pain 06/01/20 01/10/22 (Tylenol Extra Strength) albuterol sulfate 90 mcg/actuation 1 inh inhalation QID 06/01/20 01/10/22 aerosol inhaler (ProAir HFA) azelastine 205.5 mcg (0.15 %) 1 spray intranasal BID 06/01/20 01/10/22 nasal spray diphenhydramine HCl 25 mg tablet 25 mg PO BEDTIME 06/01/20 01/10/22 (Benadryl Allergy) famotidine 40 mg tablet 40 mg PO DAILY 06/01/20 01/10/22 fluoxetine 40 mg capsule 40 mg PO DAILY 06/01/20 01/10/22 fluticasone propionate 100 1 inh inhalation Q12H 06/01/20 01/10/22 mcg/actuation blister powder for inhalation (Flovent Diskus) ipratropium bromide 21 mcg (0.03 2 spray intranasal BID 06/01/20 01/10/22 %) nasal spray loratadine 10 mg capsule 10 mg PO DAILY 06/01/20 01/10/22 mecobalamin (vitamin B12) 1,000 1,000 mcg PO DAILY 06/01/20 01/10/22 mcg chewable tablet montelukast 10 mg tablet 10 mg PO BEDTIME 06/01/20 01/10/22 (Singulair) psyllium 1 packet PO TID 06/01/20 01/10/22 risperidone 3 mg tablet 3 mg PO DAILY 06/01/20 01/10/22 trazodone 100 mg tablet 100 mg PO DAILY 06/01/20 01/10/22 ascorbic acid (vitamin C) 250 mg 250 mg PO Q OTHER DAY 11/08/21 01/10/22 tablet bupropion HCl 100 mg tablet,12 hr 100 mg PO BID 11/08/21 01/10/22 sustained-release fluticasone propionate 50 2 spray intranasal DAILY 11/08/21 01/10/22 mcg/actuation nasal spray,suspension omeprazole 40 mg capsule,delayed 40 mg PO BID 11/08/21 01/10/22 release risperidone 2 mg tablet 2 mg PO BEDTIME 11/08/21 01/10/22 Previous Rx's Medication Instructions Recorded iron,carbonyl 65 mg-vitamin C 125 1 tab PO DAILY #60 tabs 07/15/20 mg tablet,delayed release (Vitron-C) ondansetron HCl 4 mg tablet 4 mg PO Q6H PRN nausea and 09/05/20 (Zofran) vomiting #14 tabs cholecalciferol (vitamin D3) 25 25 mcg PO DAILY #30 caps 10/07/20 mcg (1,000 unit) capsule (Vitamin D3) doxycycline monohydrate 100 mg 100 mg PO BID #14 caps 10/26/20 capsule cefuroxime axetil 500 mg tablet 500 mg PO Q12H #14 tabs 12/07/20 linaclotide 290 mcg capsule 290 mcg PO DAILY #30 caps 12/12/20 (Linzess) omeprazole 20 mg capsule,delayed 20 mg PO DAILY #30 caps 12/12/20 release dicyclomine 20 mg tablet 20 mg PO QID PRN abdominal pain 05/24/21 #20 tabs dicyclomine 20 mg tablet 20 mg PO QID PRN Abdominal 08/13/21 Discomfort #20 tabs methylcellulose (laxative) 500 mg 500 mg PO DAILY #30 tabs 11/08/21 tablet (Citrucel) sennosides 8.6 mg tablet (Natural 17.2 mg PO BEDTIME constipation 11/08/21 Senna Laxative) #60 tabs levothyroxine 175 mcg capsule 175 mcg PO DAILY 30 days #30 caps 11/13/21 (Tirosint) hydrocortisone 1 %-pramoxine 1 % 1 appl NH QID PRN hemorrhoids #10 02/20/22 rectal foam (Proctofoam HC) grams Allergies Allergy/AdvReac Type Severity Reaction Status Date / Time Seasonal Allergies Allergy Sneezing Verified 01/24/22 15:03 Review of Systems Review of Systems: Yes all other systems are reviewed and are negative Constitutional: Constitutional: Reports no additional constitutional c omplaints, Denies body ache(s), Denies chills, Denies fever(s), Denies headache(s) and Denies weakness Eyes: Eyes: Reports no additional eye complaints and Denies change in vision ENT: Reports system reviewed and no additional complaints, except as documented, Denies dizziness, Denies headache(s), Denies nasal congestion, Denies nasal discharge and Denies neck pain Cardiovascular: Cardiovascular: Reports no additional cardiovascular complaints, Denies chest pain, Denies leg edema and Denies dyspnea Respiratory: Respiratory: Reports no additional respiratory complaints, Denies cough and Denies dyspnea Gastrointestinal: Gastrointestinal: Reports no additional gastrointestinal complaints, Denies abdominal pain, Denies diarrhea, Denies nausea and Denies vomiting Genitourinary: Genitourinary: Reports no additional female genitourinary complaints and Denies urinary incontinence Musculoskeletal: Musculoskeletal: Reports no additional musculoskeletal complaints, Denies back pain, Denies arthralgias, Denies joint swelling, Denies neck pain, Denies numbness and Denies tingling Integumentary/Breasts: Skin/Breast: Reports system reviewed and no additional complaints, except as docu and Denies rash Neurologic: Reports system reviewed and no additional complaints, except as documented, Denies dizziness, Denies headache(s), Denies numbness, Denies tingling and Denies weakness [facility] Past Medical History Attestation statement: The following information was validated with the patient. Source: old records reviewed and nursing notes reviewed Medical History Elevated liver enzymes Surgical History H/O prior ablation treatment (~2018) History of vein stripping (~2018) Hx of thyroidectomy Family History Family History Father No problems noted. Mother No problems noted. Brother No problems noted. Brother No problems noted. Brother No problems noted. Social History Social History Household Members: Family Household Members Other:: parents Alcohol intake: never Patient Tobacco Use Status: Never used Tobacco Current occupational status: unemployed Physical Exam ED Vital Signs: Vital Signs - 24 hr 02/20/22 12:36 Temperature 98.3 F Pulse Rate 92 Respiratory Rate 18 Blood Pressure 138/88 Pulse Oximetry 97 Oxygen Delivery Method Room Air BMI result Body Mass Index 39.5 Const General: cooperative and healthy appearing Orientation/consciousness: patient oriented x3 Limitations: no limitations HENMT Head: Yes normal to inspection Ears: hearing grossly normal bilaterally Eyes General: appearance normal, both eyes and all related structures Pupils: Equal, round and reactive pupils present Neck Neck: Yes normal visual inspection Chest Chest palpation & inspection: normal inspection of the chest Resp Effort & Inspection: normal respiratory effort Cardio Peripheral pulses: Peripheral pulses 2+ throughout GI Other: jagdeep chaperoned-there is a small thrombosed hemorrhoid noted. It is mildly bleeding Inspection: Yes normal to inspection Palpation (GI): Soft to palpation and nontender Rectal Exam - Female: other (At the 11 o'clock position there is a thrombosed hemorrhoid that is bleedin) Back/Spine/Pelvis Thoracic/Lumbar Spine: thoracic and lumbar spine normal to inspection Skin General skin exam: no rashes or lesions noted Neuro General: patient oriented x3 Cranial nerves: Yes Equal, round and reactive pupils present Course Course Course Narrative: Exam is consistent with a thrombosed hemorrhoid that has spontaneously ruptured prior to arrival. There is some bleeding noted but it is a small amount. The hemorrhoid itself is small. Recommended Sitz baths, avoiding constipation, Proctofoam, follow-up with general surgery. Reviewed worrisome signs and symptoms of when to return to the emergency department. Comfortable discharge home. Medical Decision Making MDM Narrative Medical decision making narrative: 31-year-old female here with concern of bleeding from her rectum after bowel days of constipation and rectal pain. Rectal pain is now improved the patient reports increase in bleeding. Will need rectal exam Medical Records Medical records reviewed: Yes I reviewed the patient's medical records. Lab Data Lab results reviewed: Yes I reviewed the patient's lab results. Discharge Plan Discharge Clinical Impression: Bleeding external hemorrhoids, External hemorrhoid, thrombosed Patient Disposition: Home, Self-Care Instructions: Hemorrhoids (ED) Additional Instructions: Avoid constipation Sitz baths for comfort Follow-up with general surgery Prescriptions: New Proctofoam HC 1-1 % foam 1 appl NH QID PRN (Reason: hemorrhoids) Qty: 10 0RF No Action iron,carbonyl-vitamin C [Vitron-C] 65 mg iron- 125 mg tablet,delayed release (DR/EC) 1 tab PO DAILY Qty: 60 6RF cholecalciferol (vitamin D3) [Vitamin D3] 25 mcg (1,000 unit) capsule 25 mcg PO DAILY Qty: 30 6RF levothyroxine [Tirosint] 175 mcg capsule 175 mcg PO DAILY 30 Days Qty: 30 3RF ondansetron HCl [Zofran] 4 mg tablet 4 mg PO Q6H PRN (Reason: nausea and vomiting) Qty: 14 0RF doxycycline monohydrate 100 mg capsule 100 mg PO BID Qty: 14 0RF cefuroxime axetil 500 mg tablet 500 mg PO Q12H Qty: 14 0RF dicyclomine 20 mg tablet 20 mg PO QID PRN (Reason: abdominal pain) Qty: 20 0RF dicyclomine 20 mg tablet 20 mg PO QID PRN (Reason: Abdominal Discomfort) Qty: 20 0RF fluoxetine 40 mg capsule 40 mg PO DAILY trazodone 100 mg tablet 100 mg PO DAILY risperidone 3 mg tablet 3 mg PO DAILY Flovent Diskus 100 mcg/actuation blister with device 1 inh inhalation Q12H ipratropium bromide 0.03 % spray,non-aerosol 2 spray intranasal BID Rx Instructions: administer into each nostril azelastine 0.15 % (205.5 mcg) spray,non-aerosol 1 spray intranasal BID Rx Instructions: administer into each nostril diphenhydramine HCl [Benadryl Allergy] 25 mg tablet 25 mg PO BEDTIME famotidine 40 mg tablet 40 mg PO DAILY loratadine 10 mg capsule 10 mg PO DAILY psyllium Packet 1 packet PO TID Rx Instructions: mix into at least 8 oz of water or juice before administering albuterol sulfate [ProAir HFA] 90 mcg/actuation HFA aerosol inhaler 1 inh inhalation QID montelukast [Singulair] 10 mg tablet 10 mg PO BEDTIME acetaminophen [Tylenol Extra Strength] 500 mg tablet 500 mg PO QID PRN (Reason: Pain) mecobalamin (vitamin B12) 1,000 mcg tablet,chewable 1,000 mcg PO DAILY omeprazole 20 mg capsule,delayed release(DR/EC) 20 mg PO DAILY Qty: 30 2RF Linzess 290 mcg capsule 290 mcg PO DAILY Qty: 30 2RF fluticasone propionate 50 mcg/actuation spray,suspension 2 spray intranasal DAILY ascorbic acid (vitamin C) 250 mg tablet 250 mg PO Q OTHER DAY risperidone 2 mg tablet 2 mg PO BEDTIME omeprazole 40 mg capsule,delayed release(DR/EC) 40 mg PO BID bupropion HCl 100 mg tablet sustained-release 12 hr 100 mg PO BID Citrucel 500 mg tablet 500 mg PO DAILY Qty: 30 2RF Rx Instructions: take it with full glass of water sennosides [Natural Senna Laxative] 8.6 mg tablet 17.2 mg PO BEDTIME Qty: 60 2RF Referrals: Ricardo Loya MD [Physician] - 1 week Interventions: ED Discharge Assessment Last Done: 02/20/22 13:42 Discharge Date/Time: 02/20/22 13:43
== END 2022-02-20 13:43 | disposition home or self-care (01) ==
PROVIDERS: Emergency Provider Emergency Medicine; PCP Nurse Practitioner Primary Care
DX: K64.5 Perianal venous thrombosis (principal); K59.00 Constipation, unspecified; Z79.899 Other long term (current) drug therapy
CPT/HCPCS: 99283; 99284

== ENCOUNTER 2022-03-07 11:59 | Outpatient (REF) | payer MEDICAID, SELFPAY ==
[2022-03-07 13:54] LABS: Thyroid Stimulating Hormone 10.94 uIU/mL (0.32-4.0)
== END 2022-03-07 12:00 | disposition home or self-care (01) ==
LOC: HO.LAB 11:59
PROVIDERS: PCP Nurse Practitioner Primary Care; Visit Provider Internal Medicine
DX: E03.9 Hypothyroidism, unspecified (principal)
CPT/HCPCS: 36415; 84439; 84443

== ENCOUNTER 2022-04-11 11:47 | Outpatient (REF) | payer MEDICAID, SELFPAY ==
[2022-04-11 14:27] LABS: Free T4 (Free Thyroxine) 0.84 ng/dL (0.71-1.85); Thyroid Stimulating Hormone 7.97 uIU/mL (0.32-4.0)
== END 2022-04-11 11:48 | disposition home or self-care (01) ==
LOC: HO.LAB 11:47
PROVIDERS: PCP Nurse Practitioner Primary Care; Visit Provider Internal Medicine
DX: E89.0 Postprocedural hypothyroidism (principal); E16.2 Hypoglycemia, unspecified
CPT/HCPCS: 36415; 84439; 84443; 99212

== ENCOUNTER 2022-04-12 06:49 | Outpatient (REF) | payer MEDICAID, SELFPAY ==
[2022-04-12 07:39] LABS: Glucose Fasting 103 mg/dL (60-99)
[2022-04-12 08:26] LABS: Cortisol Random 10.6 ug/dL
[2022-04-12 08:43] LABS: Glucose 1 Hour 211 mg/dL
[2022-04-12 09:54] LABS: Glucose 2 Hour 189 mg/dL
[2022-04-12 11:06] LABS: Glucose 3 Hour 82 mg/dL
[2022-04-12 13:26] LABS: Glucose 4 Hour 48 mg/dL
[2022-04-13 14:42] LABS: Adrenocorticotropic Hormone 45 pg/mL (6-50)
== END 2022-04-12 06:50 | disposition home or self-care (01) ==
LOC: HO.LAB 06:49
PROVIDERS: PCP Nurse Practitioner Primary Care; Visit Provider Internal Medicine
DX: E16.1 Other hypoglycemia (principal)
CPT/HCPCS: 36415; 82024; 82533; 82951; 82952

== ENCOUNTER 2022-05-03 07:38 | Outpatient (REF) | payer MEDICAID, SELFPAY ==
[2022-05-04 21:12] LABS: Adrenocorticotropic Hormone 39 pg/mL (6-50)
[2022-05-05 00:16] LABS: Cortisol 30 Minute 26.5 mcg/dL; Cortisol Baseline 13.5 mcg/dL; Cortisol Baseline Time 1 BASELINE
== END 2022-05-03 07:39 | disposition home or self-care (01) ==
LOC: HO.MDS 07:38
PROVIDERS: Visit Provider Internal Medicine
DX: E27.40 Unspecified adrenocortical insufficiency (principal)
CPT/HCPCS: 36415; 82024; 82533; 96374; J0834

== ENCOUNTER 2022-06-23 09:33 | Outpatient (REF) | payer MEDICAID, SELFPAY ==
[2022-06-23 12:58] LABS: Free T4 (Free Thyroxine) 0.59 ng/dL (0.71-1.85)
[2022-06-23 16:08] LABS: Thyroid Stimulating Hormone > 100.00 uIU/mL (0.32-4.0)
== END 2022-06-23 09:34 | disposition home or self-care (01) ==
LOC: HO.LAB 09:33
PROVIDERS: Nurse Practitioner Gerontology; PCP Nurse Practitioner Primary Care; Visit Provider Internal Medicine
DX: E89.0 Postprocedural hypothyroidism (principal)
CPT/HCPCS: 36415; 84439; 84443

== ENCOUNTER 2022-06-28 11:34 | Emergency (ER) | payer MEDICAID, SELFPAY ==
--- NOTE | 2022-06-28 08:51 | ECG_ITS ---
Test Reason : Palpitations Blood Pressure : / mmHG Vent. Rate : 087 BPM Atrial Rate : 087 BPM P-R Int : 176 ms QRS Dur : 116 ms QT Int : 384 ms P-R-T Axes : 054 014 059 degrees QTc Int : 462 ms Normal sinus rhythm Intra-ventricular conduction delay Borderline ECG When compared with ECG of 20-JUL-2019 18:48, Incomplete right bundle branch block is no longer Present Referred By: Amee Chaudhary Electronically Signed By:CRISTHIAN WOODS MD
[2022-06-28 11:58] VITALS: BP 127/62; BP 140/86; PULSE 90; PULSE 93; RESP 14; TEMP 36.9; O2SAT 96; O2SAT 99; BMI 46.8
--- NOTE | 2022-06-28 12:08 | ED.ARRPALP ---
HPI - Arrhythmia/Palpitations General Chief Complaint: Arrhythmia/Palpitations Stated Complaint: ABNORMAL LABS Time Seen by Provider: 06/28/22 11:40 Source: patient and EMS Mode of arrival: EMS History of Present Illness HPI narrative: This is a 31-year-old female with a longstanding history of hypothyroidism with TSH is greater than 100 past who presents with reports of palpitations since last night with exertion only. No palpitations at rest. No associated dizziness, shortness of breath, chest pain, weakness, fevers or cough. Patient tells me that she had a several month period where she had been non compliant with her levothyroxine. She did have repeat labs on June 23 and was informed that her TSH was greater than 100. 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 She tells me that she has been not taking the medication because she has been feeling depressed. She did resumed antidepressants 5 days ago as well and has been in touch with her therapist. Related Data Home Medications Medication Instructions Recorded Confirmed acetaminophen 500 mg tablet 500 mg PO QID PRN Pain 06/01/20 05/22/22 (Tylenol Extra Strength) albuterol sulfate 90 mcg/actuation 1 inh inhalation QID 06/01/20 05/22/22 aerosol inhaler (ProAir HFA) azelastine 205.5 mcg (0.15 %) 1 spray intranasal BID 06/01/20 05/22/22 nasal spray diphenhydramine HCl 25 mg tablet 25 mg PO BEDTIME 06/01/20 05/22/22 (Benadryl Allergy) famotidine 40 mg tablet 40 mg PO DAILY 06/01/20 05/22/22 fluoxetine 40 mg capsule 40 mg PO DAILY 06/01/20 05/22/22 fluticasone propionate 100 1 inh inhalation Q12H 06/01/20 05/22/22 mcg/actuation blister powder for inhalation (Flovent Diskus) ipratropium bromide 21 mcg (0.03 2 spray intranasal BID 06/01/20 05/22/22 %) nasal spray loratadine 10 mg capsule 10 mg PO DAILY 06/01/20 05/22/22 mecobalamin (vitamin B12) 1,000 1,000 mcg PO DAILY 06/01/20 05/22/22 mcg chewable tablet montelukast 10 mg tablet 10 mg PO BEDTIME 06/01/20 05/22/22 (Singulair) psyllium 1 packet PO TID 06/01/20 05/22/22 risperidone 3 mg tablet 3 mg PO DAILY 06/01/20 05/22/22 trazodone 100 mg tablet 100 mg PO DAILY 06/01/20 05/22/22 ascorbic acid (vitamin C) 250 mg 250 mg PO Q OTHER DAY 11/08/21 05/22/22 tablet bupropion HCl 100 mg tablet,12 hr 100 mg PO BID 11/08/21 05/22/22 sustained-release fluticasone propionate 50 2 spray intranasal DAILY 11/08/21 05/22/22 mcg/actuation nasal spray,suspension omeprazole 40 mg capsule,delayed 40 mg PO BID 11/08/21 05/22/22 release risperidone 2 mg tablet 2 mg PO BEDTIME 11/08/21 05/22/22 Previous Rx's Medication Instructions Recorded iron,carbonyl 65 mg-vitamin C 125 1 tab PO DAILY #60 tabs 07/15/20 mg tablet,delayed release (Vitron-C) ondansetron HCl 4 mg tablet 4 mg PO Q6H PRN nausea and 09/05/20 (Zofran) vomiting #14 tabs cholecalciferol (vitamin D3) 25 25 mcg PO DAILY #30 caps 10/07/20 mcg (1,000 unit) capsule (Vitamin D3) doxycycline monohydrate 100 mg 100 mg PO BID #14 caps 10/26/20 capsule cefuroxime axetil 500 mg tablet 500 mg PO Q12H #14 tabs 12/07/20 linaclotide 290 mcg capsule 290 mcg PO DAILY #30 caps 12/12/20 (Linzess) omeprazole 20 mg capsule,delayed 20 mg PO DAILY #30 caps 12/12/20 release dicyclomine 20 mg tablet 20 mg PO QID PRN abdominal pain 05/24/21 #20 tabs dicyclomine 20 mg tablet 20 mg PO QID PRN Abdominal 08/13/21 Discomfort #20 tabs methylcellulose (laxative) 500 mg 500 mg PO DAILY #30 tabs 11/08/21 tablet (Citrucel) hydrocortisone 1 %-pramoxine 1 % 1 appl IN QID PRN hemorrhoids #10 02/20/22 rectal foam (Proctofoam HC) grams sennosides 8.6 mg tablet (Natural 17.2 mg PO BEDTIME constipation 05/21/22 Senna Laxative) #60 tabs levothyroxine 100 mcg tablet 100 mcg PO DAILY 30 days #30 tabs 06/28/22 Allergies Allergy/AdvReac Type Severity Reaction Status Date / Time Seasonal Allergies Allergy Sneezing Verified 05/22/22 10:04 Review of Systems Review of Systems: Yes all other systems are reviewed and are negative Constitutional: Constitutional: Reports no additional constitutional complaints, Denies body ache(s), Denies chills, Denies fever(s), Denies headache(s) and Denies weakness Eyes: Eyes: Reports no additional eye complaints and Denies change in vision ENT: Reports system reviewed and no additional complaints, except as documented, Denies dizziness, Denies headache(s), Denies nasal congestion, Denies nasal discharge and Denies neck pain Cardiovascular: Cardiovascular: Reports no additional cardiovascular complaints, Denies chest pain, Denies leg edema, Reports palpitations and Denies dyspnea Respiratory: Respiratory: Reports no additional respiratory complaints, Denies cough and Denies dyspnea Gastrointestinal: Gastrointestinal: Reports no additional gastrointestinal complaints, Denies abdominal pain, Denies diarrhea, Denies nausea and Denies vomiting Genitourinary: Genitourinary: Reports no additional female genitourinary complaints and Denies urinary incontinence Musculoskeletal: Musculoskeletal: Reports no additional musculoskeletal complaints, Denies back pain, Denies arthralgias, Denies joint swelling, Denies neck pain, Denies numbness and Denies tingling Integumentary/Breasts: Skin/Breast: Reports system reviewed and no additional complaints, except as docu and Denies rash Neurologic: Reports system reviewed and no additional complaints, except as documented, Denies Abnormal speech present, Denies dizziness, Denies headache(s), Denies numbness, Denies tingling and Denies weakness Endocrine: Endocrine: Reports palpitations PMFSH Past Medical History Attestation statement: The following information was validated with the patient. Source: old records reviewed and nursing notes reviewed Medical History ADHD Constipation Depression Elevated liver enzymes Hypoglycemia Hypothyroid Morbid obesity Obstructive sleep apnea Post-surgical hypothyroidism Reactive hypoglycemia Rheumatoid arthritis Varicose veins of bilateral lower extremities with other complications Surgical History H/O prior ablation treatment (~2018) History of vein stripping (~2018) Hx of thyroidectomy Family History Family History Father No problems noted. Mother No problems noted. Brother No problems noted. Brother No problems noted. Brother No problems noted. Social History Social History Household Members: Family Household Members Other:: parents Alcohol intake: never Patient Tobacco Use Status: Never used Tobacco Advance Directives: No Advance Directives Information Provided: No Current occupational status: unemployed Physical Exam Vital Signs: Vital Signs: Last Vital Signs Temp 98.5 F 06/28/22 11:58 Pulse 90 06/28/22 12:26 Resp 14 06/28/22 11:58 BP 122/77 06/28/22 12:26 Pulse Ox 99 06/28/22 11:58 O2 Del Method 06/28/22 11:58 BMI result Body Mass Index 46.8 Const: General: cooperative, healthy appearing, comfortable and no acute distress Orientation/consciousness: patient oriented x3 Limitations: no limitations HEENT: Head: Yes normal to inspection Ears: hearing grossly normal bilaterally General nose exam: Normal external nose present Face and sinus: Yes normal facial exam Mouth: Normal oral and palatal mucosa present Throat: Yes posterior oropharynx normal Eyes: General: appearance normal, both eyes and all related structures Pupils: Equal, round and reactive pupils present Neck: Neck: Yes normal visual inspection Chest: Chest palpation & inspection: normal inspection of the chest Resp: Effort & Inspection: normal respiratory effort Auscultation: clear to auscultation bilaterally Cardio: Rate: regular rate Rhythm: regular rhythm Peripheral pulses: Peripheral pulses 2+ throughout GI: Inspection: Yes normal to inspection Palpation (GI): Soft to palpation and nontender Auscultation: normal bowel sounds Back/Spine/Pelvis: Thoracic/Lumbar Spine: thoracic and lumbar spine normal to inspection Skin: General skin exam: no rashes or lesions noted Neuro: General: patient oriented x3, no focal motor deficits and normal sensation to monofilament Cranial nerves: Yes Equal, round and reactive pupils present Cognition (Neuro): normal cognition Speech: No Abnormal speech present Gait exam (Neuro): Normal gait present Motor exam (neuro): 5/5 motor strength present throughout Extrem: General: Yes normal to inspection Course Course Course Narrative: Patient has a microcytic anemia which appears acute on chronic. She had a 2 month. Were she been noncompliant with her iron. She did restart this 5 days ago. No active bleeding. Patients TSH today is 33. Her free T4 is normal. Much improved when compared to previous TSH as patient is now compliant with her medication. Orthostatics negative. Additional labs are unremarkable. Patient feels improved. Plan for discharge home. Reviewed worrisome signs and symptoms of when to return to the emergency room. Comfortable plan for discharge home. MDM - Arrhythmia/Palpitations MDM Narrative Medical decision making narrative: This is a 31-year-old female with longstanding history of hypothyroidism with TSH is greater than 100 in the past who has been noncompliant with her medication for quite some time but did recently restart her medication 5 days ago presents with palpitations with exertion since yesterday with no associated chest pain, shortness of breath, nausea, diaphoresis or dizziness. On arrival vitals are stable Will check labs, EKG, orthostatic vital signs Consider palpitations, anxiety, orthostatic hypotension Medical Records Attestation: I reviewed the patient's medical records. Lab Data Attestation: I reviewed the patient's lab results. Result diagrams: 06/28/22 12:07 06/28/22 12:07 Labs: Lab Results 06/28/22 06/28/22 06/28/22 Range/Units 12:07 12:07 12:07 WBC 7.9 (4.8-10.8) X10*3/uL RBC 3.76 L (4.20-5.50) X10*6/uL Hgb 7.8 L D (12.0-16.0) g/dl Hct 27.6 L (37.0-47.0) % MCV 73.4 L (80.0-98.0) fL MCH 20.7 L (27.0-33.0) pg MCHC 28.3 L (31.0-35.0) g/dl RDW 19.7 H (11.0-16.0) % Plt Count 150 L D (160-400) X10*3/uL MPV 11.2 (9.4-12.3) fL Immature Gran % (Auto) 2.4 H (0.0-0.4) % Neut % (Auto) 69.0 (45-73) % Lymph % (Auto) 17.2 L (20-40) % [place] % (Auto) 9.9 (2-11) % Eos % (Auto) 1.1 (0-4) % Baso % (Auto) 0.4 (0-2) % Lymph # (Auto) 1.4 (1.2-4.9) X10*3/uL [place] # (Auto) 0.8 (0.1-1.2) X10*3/uL Eos # (Auto) 0.1 (0.0-0.4) X10*3/uL Baso # (Auto) 0.0 (0.0-0.2) X10*3/uL Abs Immat Gran (auto) 0.19 H (0.00-0.03) X10*3/uL Absolute Neuts (auto) 5.5 (2.0-8.3) x10*3/uL Absolute Nucleated RBC 0.000 (0.0-0.012) X10*3/uL Nucleated RBC % (auto) 0.0 (0.0-0.2) /100WBC Sodium 138 (135-145) mmol/L Potassium 4.2 (3.3-5.1) mmol/L Chloride 102 (96-108) mmol/L Carbon Dioxide 26 (22-29) mmol/L Anion Gap 14 (12-20) BUN 12 (9-16) mg/dL Creatinine 0.84 (0.5-1.4) mg/dL Estim Creat Clear Calc 137.6 Estimated GFR > 60 Random Glucose 109 (60-115) mg/dL Calcium 9.1 D (8.4-10.2) mg/dL Magnesium 1.9 (1.6-2.6) mg/dL Total Bilirubin 0.3 (0.0-1.0) mg/dL Direct Bilirubin 0.2 (0.0-0.5) mg/dL AST 65 H (5-31) U/L ALT 59 H (0-31) U/L Alkaline Phosphatase 88 (39-117) U/L Troponin I High Sens < 3.5 (<3.5-17.0) ng/L Total Protein 7.1 (6.5-8.0) g/dL Albumin 3.8 (3.5-5.0) g/dL TSH 33.42 H (0.32-4.0) uIU/mL Free T4 0.82 (0.71-1.85) ng/dL ECG Data Attestation: I personally reviewed and interpreted this ECG as follows: ECG interpretation date: 06/28/22 ECG interpretation time: 12:13 Interpretation: Normal sinus rhythm with a rate 87, normal IN, normal QRS, normal QT Discharge Plan Discharge Clinical Impression: Palpitations, Iron deficiency anemia Patient Disposition: Home, Self-Care Instructions: Heart Palpitations (DC), Anemia (ED) Additional Instructions: Continue to take her medications. Please we compliant with these medications Increase fluids, rest Change positions slowly Follow-up with primary care doctor Prescriptions: No Action iron,carbonyl-vitamin C [Vitron-C] 65 mg iron- 125 mg tablet,delayed release (DR/EC) 1 tab PO DAILY Qty: 60 6RF cholecalciferol (vitamin D3) [Vitamin D3] 25 mcg (1,000 unit) capsule 25 mcg PO DAILY Qty: 30 6RF sennosides [Natural Senna Laxative] 8.6 mg tablet 17.2 mg PO BEDTIME Qty: 60 2RF levothyroxine 100 mcg tablet 100 mcg PO DAILY 30 Days Qty: 30 3RF ondansetron HCl [Zofran] 4 mg tablet 4 mg PO Q6H PRN (Reason: nausea and vomiting) Qty: 14 0RF doxycycline monohydrate 100 mg capsule 100 mg PO BID Qty: 14 0RF cefuroxime axetil 500 mg tablet 500 mg PO Q12H Qty: 14 0RF dicyclomine 20 mg tablet 20 mg PO QID PRN (Reason: abdominal pain) Qty: 20 0RF Proctofoam HC 1-1 % foam 1 appl IN QID PRN (Reason: hemorrhoids) Qty: 10 0RF dicyclomine 20 mg tablet 20 mg PO QID PRN (Reason: Abdominal Discomfort) Qty: 20 0RF fluoxetine 40 mg capsule 40 mg PO DAILY trazodone 100 mg tablet 100 mg PO DAILY risperidone 3 mg tablet 3 mg PO DAILY Flovent Diskus 100 mcg/actuation blister with device 1 inh inhalation Q12H ipratropium bromide 0.03 % spray,non-aerosol 2 spray intranasal BID Rx Instructions: administer into each nostril azelastine 0.15 % (205.5 mcg) spray,non-aerosol 1 spray intranasal BID Rx Instructions: administer into each nostril diphenhydramine HCl [Benadryl Allergy] 25 mg tablet 25 mg PO BEDTIME famotidine 40 mg tablet 40 mg PO DAILY loratadine 10 mg capsule 10 mg PO DAILY psyllium Packet 1 packet PO TID Rx Instructions: mix into at least 8 oz of water or juice before administering albuterol sulfate [ProAir HFA] 90 mcg/actuation HFA aerosol inhaler 1 inh inhalation QID montelukast [Singulair] 10 mg tablet 10 mg PO BEDTIME acetaminophen [Tylenol Extra Strength] 500 mg tablet 500 mg PO QID PRN (Reason: Pain) mecobalamin (vitamin B12) 1,000 mcg tablet,chewable 1,000 mcg PO DAILY omeprazole 20 mg capsule,delayed release(DR/EC) 20 mg PO DAILY Qty: 30 2RF Linzess 290 mcg capsule 290 mcg PO DAILY Qty: 30 2RF fluticasone propionate 50 mcg/actuation spray,suspension 2 spray intranasal DAILY ascorbic acid (vitamin C) 250 mg tablet 250 mg PO Q OTHER DAY risperidone 2 mg tablet 2 mg PO BEDTIME omeprazole 40 mg capsule,delayed release(DR/EC) 40 mg PO BID bupropion HCl 100 mg tablet sustained-release 12 hr 100 mg PO BID Citrucel 500 mg tablet 500 mg PO DAILY Qty: 30 2RF Rx Instructions: take it with full glass of water Interventions: ED Discharge Assessment Last Done: 06/28/22 14:27 Discharge Date/Time: 06/28/22 14:28
[2022-06-28 12:12] LABS: MANUAL DIFF FLAG NO
[2022-06-28 12:15] LABS: Basophils Percent Auto 0.4 % (0-2); Eosinophils Absolute Auto 0.1 X10*3/uL (0.0-0.4); Eosinophils Percent Auto 1.1 % (0-4); Hematocrit 27.6 % (37.0-47.0); Hemoglobin 7.8 g/dl (12.0-16.0); Imm Gran Abs Auto 0.19 X10*3/uL (0.00-0.03); Imm Gran Pct Auto 2.4 % (0.0-0.4); Lymphocytes Absolute Auto 1.4 X10*3/uL (1.2-4.9); Lymphocytes Percent Auto 17.2 % (20-40); Mean Corpuscular HGB Conc 28.3 g/dl (31.0-35.0); Mean Corpuscular Hemoglobin 20.7 pg (27.0-33.0); Mean Corpuscular Volume 73.4 fL (80.0-98.0); Mean Platelet Volume 11.2 fL (9.4-12.3); Monocytes Absolute Auto 0.8 X10*3/uL (0.1-1.2); Monocytes Percent Auto 9.9 % (2-11); Neutrophils Absolute Auto 5.5 x10*3/uL (2.0-8.3); Platelet Count 150 X10*3/uL (160-400); Red Blood Count 3.76 X10*6/uL (4.20-5.50); Red Cell Distribution Width 19.7 % (11.0-16.0); White Blood Count 7.9 X10*3/uL (4.8-10.8)
[2022-06-28 12:20] VITALS: BP 130/45; PULSE 87
[2022-06-28 12:23] VITALS: BP 117/79; PULSE 88
[2022-06-28 12:26] VITALS: BP 122/77; PULSE 90
[2022-06-28 12:30] LABS: Alanine Aminotransferase 59 U/L (0-31); Albumin Level 3.8 g/dL (3.5-5.0); Alkaline Phosphatase 88 U/L (39-117); Anion Gap 14 (12-20); Aspartate Amino Transferase 65 U/L (5-31); Bilirubin Direct 0.2 mg/dL (0.0-0.5); Bilirubin Total 0.3 mg/dL (0.0-1.0); Blood Urea Nitrogen 12 mg/dL (9-16); Calcium 9.1 mg/dL (8.4-10.2); Carbon Dioxide 26 mmol/L (22-29); Chloride 102 mmol/L (96-108); Creatinine Clr Calc Pharmacy 137.6; Estimated Glomerular Filt Rate > 60; Glucose Random 109 mg/dL (60-115); Magnesium 1.9 mg/dL (1.6-2.6); Potassium 4.2 mmol/L (3.3-5.1); Sodium 138 mmol/L (135-145); Total Protein 7.1 g/dL (6.5-8.0)
[2022-06-28 12:36] LABS: Troponin-I High Sensitivity < 3.5 ng/L (<3.5-17.0)
[2022-06-28 12:51] LABS: TSH reflex Free T4 33.42 uIU/mL (0.32-4.0)
[2022-06-28 13:23] LABS: Free T4 (Free Thyroxine) 0.82 ng/dL (0.71-1.85)
== END 2022-06-28 14:28 | disposition home or self-care (01) ==
PROVIDERS: Nurse Practitioner Family; Emergency Provider Emergency Medicine; PCP Nurse Practitioner Primary Care
DX: R00.2 Palpitations (principal); R79.89 Other specified abnormal findings of blood chemistry; D50.9 Iron deficiency anemia, unspecified; Z79.899 Other long term (current) drug therapy
CPT/HCPCS: 36415; 80048; 80076; 83735; 84439; 84443; 84484; 85025; 93005; 99283

== ENCOUNTER → 2022-08-08 14:41 | Outpatient (BNVA) | payer MEDICAID, SELFPAY | PROVIDERS: PCP Nurse Practitioner Primary Care; Visit Provider Physician Assistant | DX: E66.01 Morbid (severe) obesity due to excess calories (principal); G47.33 Obstructive sleep apnea (adult) (pediatric); M06.9 Rheumatoid arthritis, unspecified; E03.9 Hypothyroidism, unspecified; E16.1 Other hypoglycemia; Z68.42 Body mass index [BMI] 45.0-49.9, adult | CPT/HCPCS: 99202 ==

== ENCOUNTER 2022-08-13 12:23 | Outpatient (REF) | payer MEDICAID, SELFPAY ==
[2022-08-14 02:14] LABS: CT PCR NOT DETECTED (Not Detect.); NG PCR NOT DETECTED (Not Detect.)
== END 2022-08-13 12:24 | disposition home or self-care (01) ==
LOC: HO.LNP 12:23
PROVIDERS: PCP Nurse Practitioner Primary Care; Visit Provider Obstetrics & Gynecology
DX: Z30.430 Encounter for insertion of intrauterine contraceptive device (principal); Z32.02 Encounter for pregnancy test, result negative; N93.9 Abnormal uterine and vaginal bleeding, unspecified; D69.6 Thrombocytopenia, unspecified
CPT/HCPCS: 58100; 58300; 81025; 87491; 87591; 88305; 99212; J7298

== ENCOUNTER → 2022-09-05 14:00 | Outpatient (BNVA) | payer OTHER, MEDICAID, SELFPAY | PROVIDERS: PCP Nurse Practitioner Primary Care; Visit Provider Counselor Mental Health | DX: F32.3 Major depressive disorder, single episode, severe with psychotic features (principal); E66.01 Morbid (severe) obesity due to excess calories | CPT/HCPCS: 90791 ==

== ENCOUNTER → 2022-09-17 15:42 | Outpatient (BNVA) | payer MEDICAID, SELFPAY | PROVIDERS: PCP Nurse Practitioner Primary Care; Visit Provider Physician Assistant | DX: E66.01 Morbid (severe) obesity due to excess calories (principal); E16.1 Other hypoglycemia | CPT/HCPCS: 99212 ==

== ENCOUNTER 2022-09-20 16:18 | Outpatient (REF) | payer MEDICAID, SELFPAY ==
[2022-09-20 16:49] LABS: MANUAL DIFF FLAG NO
[2022-09-20 17:22] LABS: Mean Corpuscular Hemoglobin 26.5 pg (27.0-33.0); SCAN SMEAR FLAG 1
[2022-09-20 17:24] LABS: Basophils Percent Auto 0.4 % (0-2); Eosinophils Absolute Auto 0.1 X10*3/uL (0.0-0.4); Eosinophils Percent Auto 1.1 % (0-4); Hematocrit 38.4 % (37.0-47.0); Imm Gran Abs Auto 0.06 X10*3/uL (0.00-0.03); Imm Gran Pct Auto 0.6 % (0.0-0.4); Lymphocytes Absolute Auto 1.4 X10*3/uL (1.2-4.9); Lymphocytes Percent Auto 13.7 % (20-40); Mean Corpuscular HGB Conc 31.3 g/dl (31.0-35.0); Mean Platelet Volume 11.7 fL (9.4-12.3); Monocytes Absolute Auto 0.8 X10*3/uL (0.1-1.2); Monocytes Percent Auto 8.1 % (2-11); Neutrophils Absolute Auto 7.5 x10*3/uL (2.0-8.3); Neutrophils Percent Auto 76.1 % (45-73); Platelet Count 171 X10*3/uL (160-400); Red Blood Count 4.52 X10*6/uL (4.20-5.50); Red Cell Distribution Width 16.5 % (11.0-16.0); White Blood Count 9.8 X10*3/uL (4.8-10.8)
[2022-09-20 17:26] LABS: PLT ABN DIST 1
[2022-09-20 18:10] LABS: Alanine Aminotransferase 72 U/L (0-31); Albumin Level 4.5 g/dL (3.5-5.0); Alkaline Phosphatase 89 U/L (39-117); Anion Gap 13 (12-20); Aspartate Amino Transferase 46 U/L (5-31); Bilirubin Total 0.5 mg/dL (0.0-1.0); Blood Urea Nitrogen 16 mg/dL (9-16); C Reactive Protein 1.35 mg/dL (< or = 0.50); Calcium 9.4 mg/dL (8.4-10.2); Carbon Dioxide 27 mmol/L (22-29); Chloride 102 mmol/L (96-108); Cholesterol 232 mg/dL; Estimated Glomerular Filt Rate > 60; Glucose Random 94 mg/dL (60-115); HDL Cholesterol 36 mg/dL; Iron 45 mcg/dL (30-160); LDL Cholesterol Calculated 159 mg/dl; Percent Iron Saturation 12 % (15-50); Potassium 4.2 mmol/L (3.3-5.1); Sodium 138 mmol/L (135-145); Total Iron Binding Capacity 382 mcg/dL (228-428); Total Protein 8.2 g/dL (6.5-8.0); Triglycerides 189 mg/dL; Unsaturated Iron Binding 337 ug/dL
[2022-09-20 18:28] LABS: Ferritin 43 ng/mL (10-122); Insulin 83 uU/mL (2-29); TSH reflex Free T4 36.59 uIU/mL (0.32-4.0); Vitamin D 25-OH Total 18.5 ng/mL (>30)
[2022-09-20 18:40] LABS: Folate 11.9 ng/mL (> or = 4.0); Vitamin B12 450 pg/mL (200-900)
[2022-09-20 19:12] LABS: Free T4 (Free Thyroxine) 0.86 ng/dL (0.71-1.85)
[2022-09-21 08:14] LABS: Estimated Average Glucose 128 mg/dL; Hemoglobin A1c % 6.1 %
[2022-09-21 13:37] LABS: Calcium (PTHI) 9.6 mg/dL (8.6-10.2); PTHI 31 pg/mL (16-77)
[2022-09-23 23:05] LABS: Vitamin A 43 mcg/dL (38-98)
[2022-09-24 05:08] LABS: Vitamin B1 13 nmol/L (8-30)
[2022-09-24 15:33] LABS: Zinc 56 mcg/dL (60-130)
== END 2022-09-20 16:19 | disposition home or self-care (01) ==
LOC: HO.LAB 16:18
PROVIDERS: Absent Provider Physician Assistant; PCP Nurse Practitioner Primary Care; Visit Provider Internal Medicine
DX: E16.1 Other hypoglycemia (principal); E66.01 Morbid (severe) obesity due to excess calories; F32.9 Major depressive disorder, single episode, unspecified; F90.9 Attention-deficit hyperactivity disorder, unspecified type
CPT/HCPCS: 36415; 80053; 80061; 82306; 82607; 82728; 82746; 83036; 83525; 83540; 83970; 84425; 84439; 84443; 84590; 84630; 85025; 86140

== ENCOUNTER 2022-09-24 | Outpatient (REF) | payer MEDICAID, SELFPAY | END 2022-09-24 00:01 | disposition home or self-care (01) | LOC: CF | PROVIDERS: PCP Nurse Practitioner Primary Care; Visit Provider Dietitian, Registered | DX: E66.01 Morbid (severe) obesity due to excess calories (principal) | CPT/HCPCS: 97802 ==

== ENCOUNTER → 2022-09-26 13:26 | Outpatient (BNVA) | payer MEDICAID, SELFPAY | PROVIDERS: PCP Nurse Practitioner Primary Care; Visit Provider Internal Medicine | DX: E03.9 Hypothyroidism, unspecified (principal); E16.2 Hypoglycemia, unspecified | CPT/HCPCS: 99212 ==

== ENCOUNTER 2022-10-12 11:40 | Outpatient (REF) | payer MEDICAID, SELFPAY ==
[2022-10-12 14:48] LABS: Hematocrit 37.4 % (37.0-47.0); Mean Corpuscular HGB Conc 32.1 g/dl (31.0-35.0); Mean Corpuscular Hemoglobin 27.5 pg (27.0-33.0); Mean Corpuscular Volume 85.8 fL (80.0-98.0); Mean Platelet Volume 12.6 fL (9.4-12.3); Platelet Count 156 X10*3/uL (160-400); Red Blood Count 4.36 X10*6/uL (4.20-5.50); Red Cell Distribution Width 14.3 % (11.0-16.0); White Blood Count 8.2 X10*3/uL (4.8-10.8)
[2022-10-12 15:34] LABS: Free T4 (Free Thyroxine) 1.13 ng/dL (0.71-1.85); Thyroid Stimulating Hormone 1.25 uIU/mL (0.32-4.0)
[2022-10-14 08:23] LABS: Triiodothyronine T3 Total 123 ng/dL (76-181)
== END 2022-10-12 11:41 | disposition home or self-care (01) ==
LOC: HO.LAB 11:40
PROVIDERS: Absent Provider Internal Medicine; PCP Nurse Practitioner Primary Care; Visit Provider Obstetrics & Gynecology
DX: E89.0 Postprocedural hypothyroidism (principal); N93.9 Abnormal uterine and vaginal bleeding, unspecified; R79.89 Other specified abnormal findings of blood chemistry
CPT/HCPCS: 36415; 81025; 84439; 84443; 84480; 85027; 99212

== ENCOUNTER 2022-10-26 07:01 | Outpatient (REF) | payer MEDICAID, SELFPAY ==
[2022-10-26 07:38] LABS: Anion Gap 12 (12-20); Blood Urea Nitrogen 10 mg/dL (9-16); Calcium 8.8 mg/dL (8.4-10.2); Carbon Dioxide 27 mmol/L (22-29); Chloride 105 mmol/L (96-108); Estimated Glomerular Filt Rate > 60; Glucose Random 93 mg/dL (60-115); Potassium 3.9 mmol/L (3.3-5.1); Sodium 140 mmol/L (135-145)
[2022-10-26 08:01] LABS: Cortisol Random 11.2 ug/dL
[2022-11-01 03:53] LABS: Adrenocorticotropic Hormone 32 pg/mL (6-50)
== END 2022-10-26 07:02 | disposition home or self-care (01) ==
LOC: HO.LAB 07:01
PROVIDERS: PCP Nurse Practitioner Primary Care; Visit Provider Internal Medicine
DX: E16.2 Hypoglycemia, unspecified (principal)
CPT/HCPCS: 36415; 80048; 82024; 82533

== ENCOUNTER 2022-11-02 07:31 | Outpatient (REF) | payer MEDICAID, SELFPAY ==
[2022-11-02 08:25] LABS: Estimated Average Glucose 126 mg/dL
[2022-11-02 08:26] LABS: Anion Gap 15 (12-20); Blood Urea Nitrogen 13 mg/dL (9-16); Calcium 8.5 mg/dL (8.4-10.2); Carbon Dioxide 24 mmol/L (22-29); Chloride 105 mmol/L (96-108); Estimated Glomerular Filt Rate > 60; Glucose Fasting 123 mg/dL (60-99); Potassium 3.9 mmol/L (3.3-5.1); Sodium 140 mmol/L (135-145)
[2022-11-02 08:37] LABS: Glucose Fasting 122 mg/dL (60-99)
[2022-11-02 08:44] LABS: Free T4 (Free Thyroxine) 1.25 ng/dL (0.71-1.85); Thyroid Stimulating Hormone 0.62 uIU/mL (0.32-4.0)
[2022-11-02 08:47] LABS: Insulin 22 uU/mL (2-29)
[2022-11-02 08:48] LABS: Cortisol Random 9.2 ug/dL
[2022-11-02 10:16] LABS: Glucose 1 Hour 273 mg/dL
[2022-11-02 11:42] LABS: Glucose 2 Hour 235 mg/dL
[2022-11-02 12:05] LABS: Glucose 3 Hour 149 mg/dL
[2022-11-02 13:58] LABS: Glucose 4 Hour 66 mg/dL
[2022-11-04 10:24] LABS: C Peptide 3.53 ng/mL (0.80-3.85); DHEA Sulfate 85 mcg/dL (14-349)
[2022-11-08 16:33] LABS: Adrenocorticotropic Hormone 34 pg/mL (6-50)
[2022-11-09 05:04] LABS: Beta-Hydroxybutyrate 0.05 mmol/L
[2022-11-09 20:34] LABS: Insulin Auto Antibody <0.4 U/mL (<0.4)
[2022-11-11 13:29] LABS: Chlorpropamide None Detected; Glimepiride None Detected; Glipizide None Detected; Glyburide None Detected; Nateglinide None Detected; Pioglitazone None Detected; Repaglinide None Detected; Rosiglitazone None Detected; Tolazamide None Detected; Tolbutamide None Detected
[2022-11-11 15:33] LABS: Insulinoma associated 2 aatb <5.4 U/mL (<5.4)
[2022-11-14 02:04] LABS: Proinsulin 16.4 pmol/L (< OR = 18.8)
[2022-11-16 14:18] LABS: Insulin Growth Factor 2 458 ng/mL (267-616)
== END 2022-11-02 07:32 | disposition home or self-care (01) ==
LOC: HO.LAB 07:31
PROVIDERS: PCP Nurse Practitioner Primary Care; Visit Provider Internal Medicine
DX: E16.2 Hypoglycemia, unspecified (principal)
CPT/HCPCS: 36415; 80048; 80337; 82010; 82024; 82533; 82627; 82952; 83036; 83525; 83789; 84206; 84439; 84443; 84681; 86337

== ENCOUNTER → 2022-11-22 12:08 | Outpatient (BNVA) | payer MEDICAID, SELFPAY | PROVIDERS: PCP Nurse Practitioner Primary Care; Visit Provider Internal Medicine ==

== ENCOUNTER → 2022-11-27 14:39 | Outpatient (BNVA) | payer MEDICAID, SELFPAY | PROVIDERS: PCP Nurse Practitioner Primary Care; Visit Provider Dietitian, Registered | DX: Z91.119 Patient's noncompliance with dietary regimen due to unspecified reason (principal) | CPT/HCPCS: 97803 ==

== ENCOUNTER 2023-05-10 11:29 | Outpatient (REF) | payer MEDICAID, SELFPAY ==
[2023-05-10 13:07] LABS: Cholesterol 180 mg/dL (<200); HDL Cholesterol 32 mg/dL (>40); LDL Cholesterol Calculated 118 mg/dL (<100); Triglycerides 153 mg/dL (<150)
== END 2023-05-10 11:30 | disposition home or self-care (01) ==
LOC: HO.LAB 11:29
PROVIDERS: Visit Provider Registered Nurse
DX: F33.3 Major depressive disorder, recurrent, severe with psychotic symptoms (principal); Z79.899 Other long term (current) drug therapy
CPT/HCPCS: 36415; 80061

== ENCOUNTER 2023-06-28 10:34 | Outpatient (REF) | payer MEDICAID, SELFPAY ==
[2023-06-28 12:57] LABS: TSH reflex Free T4 0.01 uIU/mL (0.32-4.0)
[2023-06-28 13:41] LABS: Free T4 (Free Thyroxine) 1.34 ng/dL (0.71-1.85)
== END 2023-06-28 10:35 | disposition home or self-care (01) ==
LOC: HO.LAB 10:34
PROVIDERS: PCP Nurse Practitioner Primary Care; Visit Provider Nurse Practitioner Primary Care
DX: E03.9 Hypothyroidism, unspecified (principal)
CPT/HCPCS: 36415; 84439; 84443

== ENCOUNTER 2023-08-16 15:44 | Outpatient (REF) | payer MEDICAID, SELFPAY ==
[2023-08-16 21:38] LABS: Free T4 (Free Thyroxine) 1.03 ng/dL (0.71-1.85); Thyroid Stimulating Hormone 0.11 uIU/mL (0.32-4.0)
== END 2023-08-16 15:45 | disposition home or self-care (01) ==
LOC: HO.LAB 15:44
PROVIDERS: PCP Nurse Practitioner Primary Care; Visit Provider Internal Medicine Endocrinology, Diabetes & Metabolism
DX: E03.9 Hypothyroidism, unspecified (principal)
CPT/HCPCS: 36415; 84439; 84443

== ENCOUNTER 2023-08-22 13:08 | Outpatient (AMB) | payer MEDICAID, SELFPAY ==
--- NOTE | 2023-08-22 13:09 | MHC.OFFVIS ---
Intake Vital Signs 08/22/23 13:10 Height 5 ft 5 in BP 120/86 Blood Pressure Location Lt brachial Position Sitting Pulse 94 Pulse Source Pulse Oximeter Intake Visit Reasons: F/U Hypothyroidism, needs 30 minutes Intake Note: Patient present today for Hypothyroidism follow up visit. Previously seen by Dr. Johnson. 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 The patient last saw Dr. Johnson on 11/22/2022 She has a longstanding history of hypothyroidism with TSH >100. She initially reported good compliance, so she completed a levothyroxine abosorption test in our office. This revealed no issues with absorption as her FT4 raised appropriately. She then admitted to noncompliance with her medication. She then was compliant with tirosint 175 mcg PO daily and TSH improved significantly, but TSH remained approximately 10. Her dose of levothyroxine was increased to 250 mcg PO daily. She reports good compliance TSH was elevated recently and levothyroxine was decreased to 200 mcg She was also diagnosed with reactive hypoglycemia based on her 4 hour OGTT revealing decline in her blood sugar from 149 to 66 at the 3-4 hour time point. She was recommended to follow a very low carbohydrate diet and reports hypoglycemia has resolved with this. Labs: Laboratory Tests 11/02/22 11/02/22 11/02/22 07:49 07:49 07:49 Sodium 140 Potassium 3.9 Creatinine 0.69 Estimated GFR > 60 Hemoglobin A1c % 6.0 Glucose Tolerance Insulin Level 22 Proinsulin C-Peptide Beta-Hydroxybutyra te/Acetoacetate TSH 0.62 Free T4 1.25 DHEA Sulfate Insulin-like GF II Random Cortisol ACTH 34 11/02/22 11/02/22 11/02/22 07:49 07:49 07:50 Sodium Potassium Creatinine Estimated GFR Hemoglobin A1c % Glucose Tolerance Insulin Level Proinsulin 16.4 C-Peptide 3.53 Beta-Hydroxybutyra te/Acetoacetate 0.05 TSH Free T4 DHEA Sulfate 85 Insulin-like GF II 458 Random Cortisol 9.2 ACTH [facility] Medical History ADHD Constipation Depression Elevated liver enzymes Hypoglycemia Hypothyroid Morbid obesity Obstructive sleep apnea Post-surgical hypothyroidism Reactive hypoglycemia Rheumatoid arthritis Varicose veins of bilateral lower extremities with other complications Surgical History H/O prior ablation treatment (~2018) History of vein stripping (~2018) Hx of thyroidectomy Family History Father No problems noted. Mother No problems noted. Brother No problems noted. Brother No problems noted. Brother No problems noted. Other No family history of cancer Social History Household Members: Family Household Members Other:: parents Housing: House Are you a primary primary care provider to a significant other at home: No Do you presently have visiting nurse or other home services: Yes Alcohol intake: never Patient Tobacco Use Status: Never used Tobacco service: No Current occupational status: disabled Female Reproductive History Menstrual Age of Menarche: 13 Physical Exam Const Other: Thyroid gland is normal size weighs about 15 g. There are no thyroid nodules palpated Assessment & Plan Assessment & Plan (1) Hypothyroid: Code(s): E03.9 - Hypothyroidism, unspecified Qualifiers: Hypothyroidism type: acquired Qualified Code(s): E03.9 - Hypothyroidism, unspecified Plan: This 33-year-old female with history of hypothyroidism with previous issues of noncompliance with levothyroxine. She is currently on 200 mcg levothyroxine recentlydecreased from 250 ug She appears to be clinically euthyroid. Plan is to recheck TSH and free T4 in 4 weeks time and adjust levothyroxine. Coding Level of Care Code Est Pt Level 3 (88108) Diagnoses Acquired hypothyroidism E03.9 Hypothyroidism type: acquired
[2023-08-22 13:10] VITALS: BP 120/86; PULSE 94
== END 2023-08-22 13:23 | disposition home or self-care (01) ==
PROVIDERS: PCP Nurse Practitioner Primary Care; Visit Provider Internal Medicine
DX: E03.9 Hypothyroidism, unspecified (principal)
CPT/HCPCS: 99213

== ENCOUNTER → 2023-08-22 13:08 | Outpatient (BNVA) | payer MEDICAID, SELFPAY | PROVIDERS: Visit Provider Internal Medicine | DX: E03.9 Hypothyroidism, unspecified (principal) | CPT/HCPCS: 99212 ==

== ENCOUNTER 2023-10-15 14:00 | Outpatient (RCR) | payer MEDICAID, SELFPAY | END 2023-11-11 12:23 | disposition home or self-care (01) | LOC: HO.PT 14:00 | PROVIDERS: PCP Nurse Practitioner Primary Care; Visit Provider Nurse Practitioner Primary Care | DX: M25.571 Pain in right ankle and joints of right foot (principal); G89.29 Other chronic pain | CPT/HCPCS: 97110; 97140; 97162 ==

== ENCOUNTER 2023-10-24 12:15 | Emergency (ER) | payer MEDICAID, SELFPAY ==
[2023-10-24 12:49] VITALS: BP 162/75; PULSE 105; RESP 16; TEMP 36.8; O2SAT 95; BMI 46.1
--- NOTE | 2023-10-24 12:51 | ED_ITS ---
HPI - URI/Sore Throat General Chief Complaint: Upper Respiratory Symptoms Stated Complaint: Cough/Vomiting/SOB Time Seen by Provider: 10/24/23 14:37 Source: patient and RN notes reviewed Mode of arrival: ambulatory Limitations: no limitations History of Present Illness HPI Narrative: This is a 33-year-old female presenting to the emergency department with complaints of congestion, cough, body aches, post-tussive vomiting, subjective fevers and chills x4 days. Patient denies any chest pain or shortness of breath. Denies any abdominal pain, nausea, or diarrhea. Denies any urinary frequency, urgency, hematuria or dysuria. She denies any known sick contacts. She has been taking Tylenol at home for her symptoms. No other complaints or concerns at this time. MD elicited complaint: fever, cough, sore throat and nasal congestion Onset (ago): day(s) Consistency: constant Severity: moderate Description of mucous: clear Able to tolerate fluids by mouth: Yes Exacerbating factors: nothing Relieving factors: nothing Associated symptoms: fever (Subjective), chills, myalgias and nausea Treatments prior to arrival: none Related Data Home Medications Medication Instructions Recorded Confirmed montelukast 10 mg tablet 10 mg PO BEDTIME 06/01/20 11/22/22 (Singulair) trazodone 100 mg tablet 100 mg PO DAILY 06/01/20 11/22/22 omeprazole 40 mg capsule,delayed 40 mg PO BID 11/08/21 11/22/22 release albuterol sulfate 90 mcg/actuation 2 puff inhalation Q4-6H PRN 07/31/22 11/22/22 aerosol inhaler (ProAir HFA) Shortness Of Breath Or Wheezing ascorbic acid (vitamin C) 250 mg 250 mg PO DAILY 07/31/22 11/22/22 tablet azelastine 205.5 mcg (0.15 %) 1 spray intranasal BID 07/31/22 11/22/22 nasal spray blood sugar diagnostic (FreeStyle 07/31/22 11/22/22 Lite Strips) blood-glucose meter (FreeStyle 07/31/22 11/22/22 Lite Meter kit) bupropion HCl 100 mg tablet,12 hr 100 mg PO BID 07/31/22 11/22/22 sustained-release (Wellbutrin SR) carbamide peroxide 6.5 % ear drops 5 drp otic (ears) DAILY 07/31/22 11/22/22 (Debrox) dextrose 6 gram/15 mL oral gel 4 g PO Q15M 07/31/22 11/22/22 diclofenac sodium 1.5 % topical 1 pkg topical DAILY 07/31/22 11/22/22 drops-menthol 10 % roll-on combo pack diphenhydramine HCl 25 mg capsule 25 mg PO BEDTIME PRN Sleep 07/31/22 11/22/22 (Benadryl) docusate sodium 100 mg capsule 100 mg PO BID 07/31/22 11/22/22 (Colace) ferrous sulfate 325 mg (65 mg 325 mg PO DAILY 07/31/22 11/22/22 iron) tablet fluoxetine 40 mg capsule 80 mg PO DAILY 07/31/22 11/22/22 fluticasone propionate 110 1 puff inhalation BID 07/31/22 11/22/22 mcg/actuation HFA aerosol inhaler (Flovent HFA) fluticasone propionate 50 2 spray intranasal DAILY 07/31/22 11/22/22 mcg/actuation nasal spray,suspension (Flonase Allergy Relief) hydrocortisone 2.5 % topical cream 1 appl [place] BID-QID PRN Itching 07/31/22 11/22/22 with perineal applicator (Anusol-HC) ipratropium bromide 21 mcg (0.03 2 spray intranasal BID-TID 07/31/22 11/22/22 %) nasal spray naproxen 500 mg tablet 500 mg PO BID 07/31/22 11/22/22 polyethylene glycol 3350 17 17 g PO DAILY 07/31/22 11/22/22 gram/dose oral powder (Miralax) risperidone 0.5 mg tablet 0.5 mg PO BEDTIME 07/31/22 11/22/22 levonorgestrel 21 mcg/24 hours (8 intrauterine 10/12/22 11/22/22 yrs) 52 mg intrauterine device (Mirena) Previous Rx's Medication Instructions Recorded sennosides 8.6 mg tablet (Natural 17.2 mg (2 x 8.6 mg) PO BEDTIME 05/21/22 Senna Laxative) constipation #60 tabs cholecalciferol (vitamin D3) 50 50 mcg PO DAILY #30 caps 01/23/23 mcg (2,000 unit) capsule zinc acetate 50 mg (zinc) capsule 50 mg PO .tiw #14 caps 09/26/22 Tirosint 50 mcg capsule 50 mcg PO DAILY #90 caps 06/13/23 (levothyroxine) levothyroxine 100 mcg tablet 200 mcg (2 x 100 mcg) PO DAILY 90 06/25/23 days #180 tabs Allergies Allergy/AdvReac Type Severity Reaction Status Date / Time Seasonal Allergies Allergy Sneezing Verified 08/22/23 13:15 Review of Systems Review of Systems: Yes all other systems are reviewed and are negative Constitutional: Constitutional: Reports as per HPI [facility] Past Medical History Medical History ADHD Constipation Depression Elevated liver enzymes Hypoglycemia Hypothyroid Morbid obesity Obstructive sleep apnea Post-surgical hypothyroidism Reactive hypoglycemia Rheumatoid arthritis Varicose veins of bilateral lower extremities with other complications Surgical History H/O prior ablation treatment (~2017) History of vein stripping (~2017) Hx of thyroidectomy Family History Family History Father No problems noted. Mother No problems noted. Brother No problems noted. Brother No problems noted. Brother No problems noted. Other No family history of cancer Social History Social History Household Members: Family Household Members Other:: parents Housing: House Are you a primary care consultant to a significant other at home: No Do you presently have visiting nurse or other home services: Yes Alcohol intake: never Patient Tobacco Use Status: Never used Tobacco Advance Directives: No service: No Current occupational status: disabled Physical Exam Vital Signs: Vital Signs: Last Vital Signs Temp 98.5 F 10/24/23 17:08 Pulse 96 10/24/23 17:08 Resp 16 10/24/23 17:08 BP 125/69 10/24/23 17:08 Pulse Ox 99 10/24/23 17:08 O2 Del Method Room Air 10/24/23 17:08 BMI result Body Mass Index 46.1 Const: General: cooperative, comfortable and no acute distress Orientation/consciousness: patient oriented x3 Limitations: no limitations HEENT: Head: Yes normal to inspection, Yes normocephalic and Yes atraumatic Ears: hearing grossly normal bilaterally and TM's normal bilaterally General nose exam: Normal external nose present Face and sinus: Yes normal facial exam Mouth: Normal oral and palatal mucosa present, oropharynx normal and moist mucous membranes Throat: Yes posterior oropharynx normal, Yes tonsils normal and Yes uvula midline Eyes: General: appearance normal, both eyes and all related structures Eyelids: Yes eyelids normal Conjunctivae: conjunctivae normal Sclerae: sclerae normal Pupils: Equal, round and reactive pupils present EOM: EOMs intact bilaterally Neck: Neck: Yes normal visual inspection, Yes full ROM and Yes no lymphadenopathy Lymphatic: no lymphadenopathy noted Chest: Chest palpation & inspection: normal inspection of the chest Resp: Effort & Inspection: normal respiratory effort and able to speak in complete sentences Auscultation: clear to auscultation bilaterally, no crackles, no rales, no rhonchi and no wheezes Cardio: Rate: regular rate Rhythm: regular rhythm Heart sounds: S1 normal heart sound present and S2 normal heart sound present GI: Inspection: Yes normal to inspection Skin: General skin exam: no rashes or lesions noted Trauma: no lacerations or abrasions Wounds: no wounds Neuro: General: patient oriented x3 and moves all extremities Cranial nerves: Yes Equal, round and reactive pupils present Extrem: General: Yes normal to inspection Right upper extremity: normal to inspection Left upper extremity: normal to inspection Right lower extremity: normal to inspection Left lower extremity: normal to inspection Course Course Course Narrative: This is a rapid medical exam. Deferred additional HPI, ROS, PE to primary provider. 33 female here with flu like symptoms x several days. Will send viral testing, strep VSS Medical Decision Making Medical Decision Making [facility] Narrative: This is a 33-year-old female presenting to the emergency department for evaluation of cough, congestion, body aches and subjective fevers and chills x4 days. On arrival, blood pressure mildly elevated 162/75 with a pulse of 105, patient afebrile. Repeat vitals revealing normotensive, afebrile. Lungs are clear to auscultation bilaterally, no oral pharyngeal erythema or edema, physical examination unremarkable today. Patient tested positive for influenza A. Discussed findings with patient. Patient is outside the window for Tamiflu at this time. Discussed the importance of staying well hydrated, getting plenty of rest, and given return precautions. Patient understands and agrees with plan. Patient stable for discharge Differential Diagnosis Differential Diagnoses: The differential diagnosis associated with the presentation includes Flu, COVID, RSV, strep pharyngitis, pneumonia Lab Data MDM Lab Attestation statement: I reviewed the patient's lab results. Influenza a positive Labs: Lab Results 10/24/23 10/24/23 Range/Units 14:37 14:38 Urine Color [place] A Urine Appearance Turbid Urine pH 5.5 (5.0-9.0) Ur Specific [place] 1.025 (1.005-1.025) Urine Protein 100 (2+) H (Neg-Trace) mg/dL Urine Glucose (UA) Negative (Negative) mg/dL Urine Ketones 15 (Negative) mg/dL Urine Blood Large (3+) H (Negative) Urine Nitrite Negative (Negative) Ur Leukocyte Esterase Small (1+) H (Negative) Urine RBC >20 H (0-2) /HPF Urine WBC 21-50 H (0-5) /HPF Ur Squamous Epith Cells 6-10 (0-2) /HPF Urine Bacteria 1+ (None Seen) Hyaline Casts 0-2 (0-2) /LPF Influenza Type A (PCR) POSITIVE A (Negative) Influenza Type B (PCR) NEGATIVE (Negative) RSV RNA Qual (PCR) NEGATIVE (Negative) SARS-CoV-2 RNA (RT-PCR) NEGATIVE (Negative) S. pyogenes GrpA JENNIFER Negative (Negative) Discharge Plan Discharge Clinical Impression: Influenza A Patient Disposition: Home, Self-Care Instructions: Influenza (ED) Additional Instructions: You were seen in the emergency department in you tested positive for the flu. Influenza is a virus, that does not require antibiotics. You are outside the window to start antiviral. It is very important that you alternate between Tylenol and ibuprofen as needed for pain and fevers. Drink plenty of fluids and get plenty of rest. If any new or worsening symptoms occur including but not limited to chest pain, shortness of breath please return for re-evaluation. Prescriptions: No Action sennosides [Natural Senna Laxative] 8.6 mg tablet 17.2 mg PO BEDTIME Qty: 60 2RF cholecalciferol (vitamin D3) 50 mcg (2,000 unit) capsule 50 mcg PO DAILY Qty: 30 5RF zinc acetate 50 mg (zinc) capsule 50 mg PO .tiw Qty: 14 2RF levothyroxine [Tirosint] 50 mcg capsule 50 mcg PO DAILY Qty: 90 1RF levothyroxine 100 mcg tablet 200 mcg PO DAILY 90 Days Qty: 180 3RF trazodone 100 mg tablet 100 mg PO DAILY montelukast [Singulair] 10 mg tablet 10 mg PO BEDTIME azelastine 205.5 mcg (0.15 %) spray,non-aerosol 1 spray intranasal BID Rx Instructions: administer into each nostril ipratropium bromide 21 mcg (0.03 %) spray,non-aerosol 2 spray intranasal BID-TID Rx Instructions: administer into each nostril hydrocortisone [Anusol-HC] 2.5 % cream with perineal applicator 1 appl [place] BID-QID PRN (Reason: Itching) polyethylene glycol 3350 [Miralax] 17 gram/dose powder 17 g PO DAILY docusate sodium [Colace] 100 mg capsule 100 mg PO BID fluoxetine 40 mg capsule 80 mg PO DAILY Debrox 6.5 % drops 5 drp otic (ears) DAILY diclofenac sodium-menthol 1.5-10 % combo pack 1 pkg topical DAILY fluticasone propionate [Flonase Allergy Relief] 50 mcg/actuation spray,suspension 2 spray intranasal DAILY Rx Instructions: administer into each nostril albuterol sulfate [ProAir HFA] 90 mcg/actuation HFA aerosol inhaler 2 puff inhalation Q4-6H PRN (Reason: Shortness Of Breath Or Wheezing) naproxen 500 mg tablet 500 mg PO BID bupropion HCl [Wellbutrin SR] 100 mg tablet sustained-release 12 hr 100 mg PO BID ferrous sulfate 325 mg (65 mg iron) tablet 325 mg PO DAILY ascorbic acid (vitamin C) 250 mg tablet 250 mg PO DAILY diphenhydramine HCl [Benadryl] 25 mg capsule 25 mg PO BEDTIME PRN (Reason: Sleep) (DME) blood-glucose meter [FreeStyle Lite Meter] Kit See Rx Instructions .Route Rx Instructions: As directed (DME) FreeStyle Lite Strips Strip See Rx Instructions .Route Rx Instructions: As directed fluticasone propionate [Flovent HFA] 110 mcg/actuation HFA aerosol inhaler 1 puff inhalation BID dextrose 6 gram/15 mL gel 4 g PO Q15M Rx Instructions: until symptoms of low blood sugar are controlled risperidone 0.5 mg tablet 0.5 mg PO BEDTIME omeprazole 40 mg capsule,delayed release(DR/EC) 40 mg PO BID Mirena 20 mcg/24 hours (8 yrs) 52 mg intrauterine device 1 device intrauterine ONCE Qty: 1 0RF Mirena 20 mcg/24 hours (8 yrs) 52 mg intrauterine device intrauterine Interventions: ED Discharge Assessment Last Done: 10/24/23 17:10 Discharge Date/Time: 10/24/23 17:10
[2023-10-24 14:54] LABS: IDNOW Serial# 08D9AD1C; Strep A Nucleic Acid Negative (Negative)
[2023-10-24 14:56] LABS: Appearance Urine Turbid; Color Urine Orange; Glucose Urine UA Negative (Negative); Leukocyte Esterase Urine Small (1+) (Negative); Nitrite Urine Negative (Negative); PH 5.5 (5.0-9.0); Specific Gravity - Urine 1.025 (1.005-1.025); UMIC TRIGGER UACC YES; Urine Blood Large (3+) (Negative); Urine Ketones 15 mg/dL (Negative); Urine Protein 100 (2+) mg/dL (Neg-Trace)
[2023-10-24 14:57] LABS: Bacteria Urine 1+ (None Seen); Hyaline Casts Urine 0-2 /LPF (0-2); RBC Urine >20 /HPF (0-2); UACC Culture Trigger YES; WBC Urine 21-50 /HPF (0-5)
[2023-10-24 15:18] VITALS: BP 154/74; PULSE 96; RESP 18; TEMP 36.8; O2SAT 97
[2023-10-24 15:40] LABS: Influenza A PCR POSITIVE (Negative); Influenza B PCR NEGATIVE (Negative); Resp Syncy Virus RNA Qual PCR NEGATIVE (Negative); SARS COV2 PCR INHOUSE NEGATIVE (Negative)
[2023-10-24 17:08] VITALS: BP 125/69; PULSE 96; RESP 16; TEMP 36.9; O2SAT 99
== END 2023-10-24 17:10 | disposition home or self-care (01) ==
PROVIDERS: Nurse Practitioner Family; Emergency Provider Emergency Medicine; PCP Nurse Practitioner Primary Care
DX: J10.1 Influenza due to other identified influenza virus with other respiratory manifestations (principal); R05.9 Cough, unspecified; R09.81 Nasal congestion; R11.10 Vomiting, unspecified; R50.9 Fever, unspecified; Z11.52 Encounter for screening for COVID-19; E11.649 Type 2 diabetes mellitus with hypoglycemia without coma; Z79.4 Long term (current) use of insulin; Z79.899 Other long term (current) drug therapy; Z79.84 Long term (current) use of oral hypoglycemic drugs
CPT/HCPCS: 0241U; 81001; 87086; 87651; 99283

== ENCOUNTER 2023-12-13 11:14 | Outpatient (REF) | payer MEDICAID, SELFPAY ==
[2023-12-13 13:22] LABS: Free T4 (Free Thyroxine) 0.94 ng/dL (0.71-1.85); Thyroid Stimulating Hormone 1.16 uIU/mL (0.32-4.0)
== END 2023-12-13 11:15 | disposition home or self-care (01) ==
LOC: HO.LAB 11:14
PROVIDERS: PCP Nurse Practitioner Primary Care; Visit Provider Internal Medicine Endocrinology, Diabetes & Metabolism
DX: R79.89 Other specified abnormal findings of blood chemistry (principal)
CPT/HCPCS: 36415; 84439; 84443

== ENCOUNTER 2024-04-29 10:09 | Outpatient (AMB) | payer MEDICAID, SELFPAY ==
[2024-04-29 10:10] VITALS: BP 116/74; PULSE 98; BMI 48.9
--- NOTE | 2024-04-29 10:10 | MHC.OFFVIS ---
Vital Signs 04/29/24 10:10 Height 5 ft 6 in Weight 302 lb 11.115 oz BMI 48.9 BP 116/74 Blood Pressure Location Rt brachial Position Sitting Pulse 98 Pulse Source Pulse Oximeter Intake Visit Reasons: F/U Hypothyroidism Intake Note: Patient present today for Hypothyroidism follow up. Electrician Second Required: No Accompanied by: Self / Same As Patient Allergies Seasonal Allergies Allergy (Verified 04/29/24 10:13) Sneezing HPI Comments Details: 32 YO Female with a PMHx of Hypothyroidism who is seen in F/U for hypothyroidism . She has a longstanding history of hypothyroidism with TSH >100. She initially reported good compliance, so she completed a levothyroxine abosorption test in our office. This revealed no issues with absorption as her FT4 raised appropriately. She then admitted to noncompliance with her medication. She then was compliant with tirosint 175 mcg PO daily and TSH improved significantly, but TSH remained approximately 10. Her dose of levothyroxine was increased to 250 mcg PO daily. She reports good compliance TSH was elevated recently and levothyroxine was decreased to 200 mcg She was also diagnosed with reactive hypoglycemia based on her 4 hour OGTT revealing decline in her blood sugar from 149 to 66 at the 3-4 hour time point. She was recommended to follow a very low carbohydrate diet and reports hypoglycemia has resolved with this. Labs: Laboratory Tests 11/02/22 11/02/22 11/02/22 07:49 07:49 07:49 Sodium 140 Potassium 3.9 Creatinine 0.69 Estimated GFR > 60 Hemoglobin A1c % 6.0 Glucose Tolerance Insulin Level 22 Proinsulin C-Peptide Beta-Hydroxybutyrate/Acetoacetate TSH 0.62 Free T4 1.25 DHEA Sulfate Insulin-like GF II Random Cortisol ACTH 34 11/02/22 11/02/22 11/02/22 07:49 07:49 07:50 Sodium Potassium Creatinine Estimated GFR Hemoglobin A1c % Glucose Tolerance Insulin Level Proinsulin 16.4 C-Peptide 3.53 Beta-Hydroxybutyrate/Acetoacetate 0.05 TSH Free T4 DHEA Sulfate 85 Insulin-like GF II 458 Random Cortisol 9.2 ACTH Currently on levothyroxine [facility] Medical History ADHD Constipation Depression Elevated liver enzymes Hypoglycemia Hypothyroid Morbid obesity Obstructive sleep apnea Post-surgical hypothyroidism Reactive hypoglycemia Rheumatoid arthritis Varicose veins of bilateral lower extremities with other complications Surgical History H/O prior ablation treatment (~2018) History of vein stripping (~2018) Hx of thyroidectomy Family History Father No problems noted. Mother No problems noted. Brother No problems noted. Brother No problems noted. Brother No problems noted. Other No family history of cancer Social History Household Members: Family Household Members Other:: parents Housing: House Are you a primary direct support professional caregiver to a significant other at home: No Do you presently have visiting nurse or other home services: Yes Alcohol intake: never Patient Tobacco Use Status: Never used Tobacco service: No Current occupational status: disabled Female Reproductive History Menstrual Age of Menarche: 13 Physical Exam Vital Signs: BMI result Body Mass Index 48.9 Const Other: Thyroid gland is normal size weighs about 15 g. There are no thyroid nodules palpated Assessment & Plan Assessment & Plan (1) Hypothyroid: Code(s): E03.9 - Hypothyroidism, unspecified Category: Medical Qualifiers: Hypothyroidism type: acquired Qualified Code(s): E03.9 - Hypothyroidism, unspecified Plan: This 33-year-old female with history of hypothyroidism with previous issues of noncompliance with levothyroxine. She is currently on 200 mcg levothyroxine She appears to be clinically and biochemically euthyroid. Plan is to continue with the current therapy. At this point, patient returned to the care of her primary care provider returned back to endocrinology as needed Medications: Discontinued Tirosint (levothyroxine) Discontinued Reason: Doctor's Order 50 mcg PO DAILY 90 caps 1RF NS Coding Level of Care Code Est Pt Level 3 (83598) Diagnoses Acquired hypothyroidism E03.9 Hypothyroidism type: acquired
== END 2024-04-29 10:23 | disposition home or self-care (01) ==
PROVIDERS: PCP Nurse Practitioner Primary Care; Referring Provider Nurse Practitioner Primary Care; Visit Provider Internal Medicine Endocrinology, Diabetes & Metabolism
DX: E03.9 Hypothyroidism, unspecified (principal)
CPT/HCPCS: 99213

== ENCOUNTER → 2024-04-29 10:09 | Outpatient (BNVA) | payer MEDICAID, SELFPAY | PROVIDERS: PCP Nurse Practitioner Primary Care; Visit Provider Internal Medicine Endocrinology, Diabetes & Metabolism | DX: E03.9 Hypothyroidism, unspecified (principal) | CPT/HCPCS: 99212 ==

== ENCOUNTER 2024-05-03 10:47 | Emergency (ER) | payer MEDICAID, SELFPAY ==
--- NOTE | ~2024-05-03 | CT_ITS ---
EXAMINATION: CT ABDOMEN AND PELVIS WITHOUT CONTRAST CLINICAL INFORMATION: Left upper quadrant pain, diarrhea and constipation COMPARISON: CT abdomen 05/23/2021 TECHNIQUE: Multidetector volumetric imaging was performed from the superior aspect of the liver through the pubic symphysis. Sagittal and coronal reformatted images were obtained on the technologist's workstation. This CT examination was performed using dose optimization techniques as appropriate, variously including the following: *Automated exposure control *Adjustment of mA and/or kV according to patient size (this includes techniques or standardized protocols for targeted exams where dose is matched to indication/reason for exam; i.e. extremities or head) *Use of iterative reconstruction technique DLP: 1406 mGy-cm FINDINGS: LUNG BASES: The visualized lung bases are unremarkable. LIVER, GALLBLADDER, AND BILIARY TREE: Liver is enlarged measuring 25 cm in greatest length. Slight low attenuation of the liver as compared to the spleen, suggesting hepatic steatosis. No focal liver lesion or biliary duct dilatation. The gallbladder is partially distended with no evidence of radiopaque gallstones, gallbladder wall thickening, or obvious pericholecystic inflammatory changes. PANCREAS: Unremarkable. SPLEEN: Redemonstrate enlargement measuring 16.6 cm. ADRENAL GLANDS: Unremarkable. KIDNEYS AND URETERS: The kidneys are normal in size, shape, and attenuation. No hydronephrosis, hydroureter, or calculi seen. No perinephric stranding. BLADDER: Unremarkable. GASTROINTESTINAL TRACT: Stomach is nondistended. No dilated small bowel. Small to moderate stool volume. This includes stool in the rectum and rectosigmoid junction. No evidence of colonic wall thickening or pericolonic inflammatory changes. Normal appendix. No free fluid. No free air. ABDOMINAL WALL: Small fat-containing umbilical hernia. LYMPH NODES: No pathologically enlarged lymph nodes. VASCULAR: Normal caliber aorta. PELVIC VISCERA: Anteverted uterus. IUD present. OSSEOUS STRUCTURES: Mild L5-S1 disc degeneration. CT/CT abdomen pelvis wo IV con IMPRESSION: 1. Enlarged liver. Mild hepatic steatosis. 2. Splenomegaly. 3. Nonobstructive bowel gas pattern. [id number] stool volume. No colonic inflammatory changes seen. Fleischner guidelines were followed. Electronically signed by: Taqueria Wang MD 05/03/2024 02:20 PM EDT
[2024-05-03 10:50] VITALS: BP 157/98; PULSE 93; RESP 18; TEMP 36.8; O2SAT 98; BMI 51.7
[2024-05-03 11:21] LABS: MANUAL DIFF FLAG NO
[2024-05-03 11:22] LABS: Basophils Absolute Auto 0.1 X10*3/uL (0.0-0.2); Basophils Percent Auto 0.6 % (0-2); Eosinophils Absolute Auto 0.1 X10*3/uL (0.0-0.4); Eosinophils Percent Auto 1.1 % (0-4); Hematocrit 36.1 % (37.0-47.0); Hemoglobin 11.5 g/dl (12.0-16.0); Imm Gran Abs Auto 0.13 X10*3/uL (0.00-0.03); Imm Gran Pct Auto 1.4 % (0.0-0.4); Lymphocytes Absolute Auto 1.9 X10*3/uL (1.2-4.9); Lymphocytes Percent Auto 19.3 % (20-40); Mean Corpuscular HGB Conc 31.9 g/dl (31.0-35.0); Mean Corpuscular Hemoglobin 27.9 pg (27.0-33.0); Mean Corpuscular Volume 87.6 fL (80.0-98.0); Mean Platelet Volume 12.6 fL (9.4-12.3); Monocytes Absolute Auto 0.7 X10*3/uL (0.1-1.2); Monocytes Percent Auto 7.4 % (2-11); Neutrophils Absolute Auto 6.7 x10*3/uL (2.0-8.3); Neutrophils Percent Auto 70.2 % (45-73); Platelet Count 160 X10*3/uL (160-400); Red Blood Count 4.12 X10*6/uL (4.20-5.50); Red Cell Distribution Width 14.6 % (11.0-16.0); White Blood Count 9.6 X10*3/uL (4.8-10.8)
[2024-05-03 11:24] LABS: Appearance Urine Cloudy; Color Urine Dark Yellow; Glucose Urine UA Negative (Negative); Leukocyte Esterase Urine Small (1+) (Negative); Nitrite Urine Negative (Negative); PH 5.5 (5.0-9.0); Specific Gravity - Urine >= 1.030 (1.005-1.025); UMIC TRIGGER UACC YES; Urine Blood Negative (Negative); Urine Ketones Trace mg/dL (Negative); Urine Protein 30 (1+) mg/dL (Neg-Trace)
[2024-05-03 11:26] LABS: UPreg QC Valid YES; Urine Pregnancy NEGATIVE (NEGATIVE)
[2024-05-03 11:33] LABS: Bacteria Urine 1+ (None Seen); Hyaline Casts Urine 0-2 /LPF (0-2); RBC Urine 0-2 /HPF (0-2); UACC Culture Trigger YES
[2024-05-03 11:38] LABS: Alanine Aminotransferase 86 U/L (0-31); Albumin Level 3.9 g/dL (3.5-5.0); Alkaline Phosphatase 89 U/L (39-117); Anion Gap 12 (12-20); Aspartate Amino Transferase 98 U/L (5-31); Bilirubin Total 0.6 mg/dL (0.0-1.0); Blood Urea Nitrogen 9 mg/dL (9-16); Calcium 8.9 mg/dL (8.4-10.2); Carbon Dioxide 25 mmol/L (22-29); Chloride 108 mmol/L (96-108); Creatinine Clr Calc Pharmacy 127.9; Estimated Glomerular Filt Rate > 60; Glucose Random 149 mg/dL (60-115); Lipase 26 U/L (8-78); Potassium 3.8 mmol/L (3.3-5.1); Sodium 141 mmol/L (135-145); Total Protein 7.6 g/dL (6.5-8.0)
--- NOTE | 2024-05-03 12:50 | ED_ITS ---
HPI - Abdominal Pain General Chief Complaint: Abdominal Pain Stated Complaint: abd pain Time Seen by Provider: 05/03/24 13:03 Source: patient Mode of arrival: ambulatory Limitations: no limitations History of Present Illness ED Provider: BEVERLY MOJICA PA-C HPI narrative: 33 year old female with pmhx significant for morbid obesity, hypothyroid, depression, ADHD, rheumatoid arthritis, COLLETTE, hepatic steatosis presents to the ED today for evaluation of abdominal pain, diarrhea, and constipation x 1 week. Reports her RUQ abdominal pain became worse after eating cake last night. States that the pain as been alternating from RUQ to LUQ at times. Rates her pain a 6/10 currently however is declining any pain control in ED. Did not take anything OTC for this. Reports both hard and soft stools when passing BMs. Last BM today. Denies fever, chills, nausea or vomiting, flank pain, dysuria, hematuria, hematochezia, melena. Related Data Home Medications ?Medication ?Instructions ?Recorded ?Confirmed montelukast 10 mg tablet 10 mg PO BEDTIME 06/01/20 11/22/22 (Singulair) trazodone 100 mg tablet 100 mg PO DAILY 06/01/20 11/22/22 omeprazole 40 mg capsule,delayed 40 mg PO BID 11/08/21 11/22/22 release albuterol sulfate 90 mcg/actuation 2 puff inhalation Q4-6H PRN 07/31/22 11/22/22 aerosol inhaler (ProAir HFA) Shortness Of Breath Or Wheezing ascorbic acid (vitamin C) 250 mg 250 mg PO DAILY 07/31/22 11/22/22 tablet azelastine 205.5 mcg (0.15 %) 1 spray intranasal BID 07/31/22 11/22/22 nasal spray blood sugar diagnostic (FreeStyle 07/31/22 11/22/22 Lite Strips) blood-glucose meter (FreeStyle 07/31/22 11/22/22 Lite Meter kit) bupropion HCl 100 mg tablet,12 hr 100 mg PO BID 07/31/22 11/22/22 sustained-release (Wellbutrin SR) carbamide peroxide 6.5 % ear drops 5 drp otic (ears) DAILY 07/31/22 11/22/22 (Debrox) dextrose 6 gram/15 mL oral gel 4 g PO Q15M 07/31/22 11/22/22 diclofenac sodium 1.5 % topical 1 pkg topical DAILY 07/31/22 11/22/22 drops-menthol 10 % roll-on combo pack diphenhydramine HCl 25 mg capsule 25 mg PO BEDTIME PRN Sleep 07/31/22 11/22/22 (Benadryl) docusate sodium 100 mg capsule 100 mg PO BID 07/31/22 11/22/22 (Colace) ferrous sulfate 325 mg (65 mg 325 mg PO DAILY 07/31/22 11/22/22 iron) tablet fluoxetine 40 mg capsule 80 mg PO DAILY 07/31/22 11/22/22 fluticasone propionate 110 1 puff inhalation BID 07/31/22 11/22/22 mcg/actuation HFA aerosol inhaler (Flovent HFA) fluticasone propionate 50 2 spray intranasal DAILY 07/31/22 11/22/22 mcg/actuation nasal spray,suspension (Flonase Allergy Relief) hydrocortisone 2.5 % topical cream 1 appl AR BID-QID PRN Itching 07/31/22 11/22/22 with perineal applicator (Anusol-HC) ipratropium bromide 21 mcg (0.03 2 spray intranasal BID-TID 07/31/22 11/22/22 %) nasal spray naproxen 500 mg tablet 500 mg PO BID 07/31/22 11/22/22 polyethylene glycol 3350 17 17 g PO DAILY 07/31/22 11/22/22 gram/dose oral powder (Miralax) risperidone 0.5 mg tablet 0.5 mg PO BEDTIME 07/31/22 11/22/22 levonorgestrel 21 mcg/24 hr (up to intrauterine 10/12/22 11/22/22 8 years) 52 mg intrauterine device (Mirena) Previous Rx's ?Medication ?Instructions ?Recorded sennosides 8.6 mg tablet (Natural 17.2 mg (2 x 8.6 mg) PO BEDTIME 05/21/22 Senna Laxative) constipation #60 tabs cholecalciferol (vitamin D3) 50 50 mcg PO DAILY #30 caps 09/24/22 mcg (2,000 unit) capsule zinc acetate 50 mg (zinc) capsule 50 mg PO .tiw #14 caps 09/26/22 levothyroxine 100 mcg tablet 200 mcg (2 x 100 mcg) PO DAILY 90 06/25/23 days #180 tabs sucralfate 1 gram tablet (Carafate) 1 g PO BID 4 weeks #56 tabs 05/03/24 Allergies Allergy/AdvReac Type Severity Reaction Status Date / Time Seasonal Allergies Allergy Sneezing Verified 05/03/24 10:52 Review of Systems Review of Systems Constitutional: No fever, chills, fatigue, night sweats, weight changes ENT/Mouth: No ear pain, hearing loss, nasal congestion, sinus pain, rhinorrhea, sore throat Eyes: No eye pain, swelling, redness, vision changes, discharge Cardio: No chest pain, palpitations, CHÁVEZ, orthopnea, peripheral edema Pulm: No SOB, cough, sputum, wheezing, dyspnea, hemoptysis GI: No nausea, vomiting, hematemesis, hematochezia, melena, +abdominal pain, +diarrhea, +constipation : No irregular bleeding, dysuria, frequency, urgency, hesitancy, hematuria, flank pain, urinary flow changes, urinary incontinence or retention MSK: No back pain, neck pain, joint pain, myalgias Skin: No lesions, rashes Neuro: No weakness, numbness, paresthesias, LOC, dizziness, headache Psych: No anxiety/panic, depression, SI/HI, AH/VH All other systems reviewed and are negative. [facility] Past Medical History Attestation statement: The following information was validated with the patient. Source: old records reviewed and nursing notes reviewed Medical History Reactive hypoglycemia Hypoglycemia Constipation Post-surgical hypothyroidism Elevated liver enzymes Varicose veins of bilateral lower extremities with other complications Obstructive sleep apnea Rheumatoid arthritis Depression ADHD Hypothyroid Morbid obesity Surgical History H/O prior ablation treatment (~2018) History of vein stripping (~2018) Hx of thyroidectomy Family History Family History Father No problems noted. Mother No problems noted. Brother No problems noted. Brother No problems noted. Brother No problems noted. Other No family history of cancer Social History Social History Household Members: Family Household Members Other:: parents Housing: House Are you a primary cardiac care unit nurse to a significant other at home: No Do you presently have visiting nurse or other home services: Yes Alcohol intake: never Patient Tobacco Use Status: Never used Tobacco Advance Directives: No Advance Directives Information Provided: No service: No Current occupational status: disabled Physical Exam ED Vital Signs: Vital Signs - 24 hr 05/03/24 10:50 05/03/24 14:45 Temperature 98.2 F 98.2 F Pulse Rate 93 76 Respiratory Rate 18 18 Blood Pressure 157/98 H 128/71 Pulse Oximetry 98 100 Oxygen Delivery Method Room Air Room Air BMI result Body Mass Index 51.7 Hypertensive to 157/98, vitals otherwise wnl. General: Well appearing, in no acute distress. Skin: Warm, dry, intact. No rashes or lesions. Head: Normocephalic, atraumatic. EENT: Hearing is intact b/l. Conjunctiva clear. Sclera is anicteric. PERRLA. EOM intact. Moist mucous membranes.? Neck: Supple without LAD. FROM. Cardiac: Chest wall symmetric. RRR. Lungs: Normal respiratory effort without accessory muscle use. CTA bilaterally. No rales, rhonchi, or wheezes.? Abdomen: Obese abdomen, soft, nondistended and nontender to palpation. No rebound tenderness or guarding. Positive bowel sounds x4. Back: No midline spinous or paraspinal tenderness. No step off deformity. Ext: Upper and lower extremities atraumatic, without tenderness, deformity, swelling or erythema. Full ROM throughout. Neuro: AOx3. Normal speech. CN 2-12 grossly intact. Ambulating with steady gait. Psych: Appropriate mood and affect. Responds appropriately to questions. Course Course Course Narrative: 1252 -- CBC without leukocytosis or left shift. Mildly anemic with H&H stable at 11 5/36.1. Above transfusion threshold. Chemistry without acute electrolyte abnormality requiring intervention. No SANKET. Random glucose 149. Elevated AST and ALT, chronic when compared to priors. Consistent with known hepatic steatosis. Lipase WNL at 26, unlikely pancreatitis. Urine with small amount of leukocyte esterase, 11-20 urine WBC, 6-10 squamous epithelial cells and 1+ bacteria. This is likely contamination. Will await urine culture to treat for UTI. Urine negative. > CT abdomen/pelvis pending to further investigate etiology of patient's symptoms 1438 -- CT abdomen showing enlarged liver with mild hepatic steatosis, splenomegaly, nonobstructive bowel gas pattern with small to moderate stool volume. Discussed workup results with patient. Will send Carafate to pharmacy for treatment. Patient has remained stable throughout ED visit today. Discussed worrisome signs and symptoms and when to return to the ED. All questions answered at this time. Patient is agreeable with disposition and stable for discharge. Medical Decision Making Medical Decision Making [facility] Narrative: 33 year old female with pmhx significant for morbid obesity, hypothyroid, depression, ADHD, rheumatoid arthritis, COLLETTE, hepatic steatosis presents to the ED today for evaluation of abdominal pain, diarrhea, and constipation x 1 week. Differential diagnosis includes biliary colic, renal colic, nephrolithiasis, gastroenteritis. Abdominal exam without peritoneal signs. No evidence of acute abdomen at this time. Well appearing. Moderate suspicion for acute hepatobiliary disease (including acute cholecystitis). Less likely to represent acute pancreatitis, PUD (including perforation), acute infectious processes (hepatitis, pyelonephritis), atypical appendicitis, vascular catastrophe, bowel obstruction or viscus perforation. Presentation not consistent with other acute, emergent causes of abdominal pain at this time. Plan: labs, UA, pain control, CT abd/pelvis, serial reassessment Differential Diagnosis Differential Diagnoses: The differential diagnosis associated with the presentation includes As above Admission/Observation Not indicated Lab Data [facility] Lab Attestation statement: I reviewed the patient's lab results. As above 05/03/24 11:16 05/03/24 11:16 Labs: Lab Results 05/03/24 Range/Units 11:16 WBC 9.6 (4.8-10.8) X10*3/uL RBC 4.12 L (4.20-5.50) X10*6/uL Hgb 11.5 L (12.0-16.0) g/dl Hct 36.1 L (37.0-47.0) % MCV 87.6 (80.0-98.0) fL MCH 27.9 (27.0-33.0) pg MCHC 31.9 (31.0-35.0) g/dl RDW 14.6 (11.0-16.0) % Plt Count 160 (160-400) X10*3/uL MPV 12.6 H (9.4-12.3) fL Immature Gran % (Auto) 1.4 H (0.0-0.4) % Neut % (Auto) 70.2 (45-73) % Lymph % (Auto) 19.3 L (20-40) % [place] % (Auto) 7.4 (2-11) % Eos % (Auto) 1.1 (0-4) % Baso % (Auto) 0.6 (0-2) % Lymph # (Auto) 1.9 (1.2-4.9) X10*3/uL [place] # (Auto) 0.7 (0.1-1.2) X10*3/uL Eos # (Auto) 0.1 (0.0-0.4) X10*3/uL Baso # (Auto) 0.1 (0.0-0.2) X10*3/uL Abs Immat Gran (auto) 0.13 H (0.00-0.03) X10*3/uL Absolute Neuts (auto) 6.7 (2.0-8.3) x10*3/uL Absolute Nucleated RBC 0.000 (0.0-0.012) X10*3/uL Nucleated RBC % (auto) 0.0 (0.0-0.2) /100WBC Sodium 141 (135-145) mmol/L Potassium 3.8 (3.3-5.1) mmol/L Chloride 108 (96-108) mmol/L Carbon Dioxide 25 (22-29) mmol/L Anion Gap 12 (12-20) BUN 9 (9-16) mg/dL Creatinine 0.88 (0.5-1.4) mg/dL Estim Creat Clear Calc 127.9 Estimated GFR > 60 Random Glucose 149 H (60-115) mg/dL Calcium 8.9 (8.4-10.2) mg/dL Total Bilirubin 0.6 (0.0-1.0) mg/dL AST 98 H (5-31) U/L ALT 86 H (0-31) U/L Alkaline Phosphatase 89 (39-117) U/L Total Protein 7.6 (6.5-8.0) g/dL Albumin 3.9 (3.5-5.0) g/dL Lipase 26 (8-78) U/L Urine Color Dark Yellow Urine Appearance Cloudy Urine pH 5.5 (5.0-9.0) Ur Specific [place] >= 1.030 H (1.005-1.025) Urine Protein 30 (1+) H (Neg-Trace) mg/dL Urine Glucose (UA) Negative (Negative) mg/dL Urine Ketones Trace (Negative) mg/dL Urine Blood Negative (Negative) Urine Nitrite Negative (Negative) Ur Leukocyte Esterase Small (1+) H (Negative) Urine RBC 0-2 (0-2) /HPF Urine WBC 11-20 (0-5) /HPF Ur Squamous Epith Cells 6-10 (0-2) /HPF Urine Bacteria 1+ (None Seen) Hyaline Casts 0-2 (0-2) /LPF Urine Test NEGATIVE (NEGATIVE) Independent Interpretation I performed an independent interpretation of an: CT Scan Interpretation: CT abdomen/pelvis without intra-abdominal pathology, agree with radiologist's interpretation. Radiology Impression Discussion of test interpretation with radiology: I have reviewed the radiologist's reading. Radiologist Impression: EXAMINATION: CT ABDOMEN AND PELVIS WITHOUT CONTRAST CLINICAL INFORMATION: Left upper quadrant pain, diarrhea and constipation COMPARISON: CT abdomen 05/23/2021 TECHNIQUE: Multidetector volumetric imaging was performed from the superior aspect of the liver through the pubic symphysis. Sagittal and coronal reformatted images were obtained on the technologist's workstation. This CT examination was performed using dose optimization techniques as appropriate, variously including the following: *Automated exposure control *Adjustment of mA and/or kV according to patient size (this includes techniques or standardized protocols for targeted exams where dose is matched to indication/reason for exam; i.e. extremities or head) *Use of iterative reconstruction technique DLP: 1406 mGy-cm FINDINGS: LUNG BASES: The visualized lung bases are unremarkable. LIVER, GALLBLADDER, AND BILIARY TREE: Liver is enlarged measuring 25 cm in greatest length. Slight low attenuation of the liver as compared to the spleen, suggesting hepatic steatosis. No focal liver lesion or biliary duct dilatation. The gallbladder is partially distended with no evidence of radiopaque gallstones, gallbladder wall thickening, or obvious pericholecystic inflammatory changes. PANCREAS: Unremarkable. SPLEEN: Redemonstrate enlargement measuring 16.6 cm. ADRENAL GLANDS: Unremarkable. KIDNEYS AND URETERS: The kidneys are normal in size, shape, and attenuation. No hydronephrosis, hydroureter, or calculi seen. No perinephric stranding. BLADDER: Unremarkable. GASTROINTESTINAL TRACT: Stomach is nondistended. No dilated small bowel. Small to moderate stool volume. This includes stool in the rectum and rectosigmoid junction. No evidence of colonic wall thickening or pericolonic inflammatory changes. Normal appendix. No free fluid. No free air. ABDOMINAL WALL: Small fat-containing umbilical hernia. LYMPH NODES: No pathologically enlarged lymph nodes. VASCULAR: Normal caliber aorta. PELVIC VISCERA: Anteverted uterus. IUD present. OSSEOUS STRUCTURES: Mild L5-S1 disc degeneration. CT/CT abdomen pelvis wo IV con IMPRESSION: 1. Enlarged liver. Mild hepatic steatosis. 2. Splenomegaly. 3. Nonobstructive bowel gas pattern. [id number] stool volume. No colonic inflammatory changes seen. Fleischner guidelines were followed. Electronically signed by: Taqueria Wang MD 05/03/2024 02:20 PM EDT External Record Review External record reviewed: Inpatient record Social Determinants Patient?s care significantly limited by Social Determinants of Health including: Other Social Determinant of Health Critical Care Time Critical Care Time Critical Care Time: No Discharge Plan Discharge Clinical Impression: Abdominal pain Patient Disposition: Home, Self-Care Instructions: Abdominal Pain (ED) Additional Instructions: Your blood work today is reassuring. Your urine is negative for infection and . The CT scan of your abdomen did not show any acute findings to explain your abdominal pain. Follow up with PCP as needed. You have also been provided with a referral to a GI specialist. You may call them to establish care. They will not call you. Return with new or worsening symptoms. In the case of an emergency call 911. Prescriptions: New sucralfate [Carafate] 1 gram tablet 1 g PO BID 28 Days Qty: 56 0RF No Action sennosides [Natural Senna Laxative] 8.6 mg tablet 17.2 mg PO BEDTIME Qty: 60 2RF cholecalciferol (vitamin D3) 50 mcg (2,000 unit) capsule 50 mcg PO DAILY Qty: 30 5RF zinc acetate 50 mg (zinc) capsule 50 mg PO .tiw Qty: 14 2RF levothyroxine 100 mcg tablet 200 mcg PO DAILY 90 Days Qty: 180 3RF trazodone 100 mg tablet 100 mg PO DAILY montelukast [Singulair] 10 mg tablet 10 mg PO BEDTIME azelastine 205.5 mcg (0.15 %) spray,non-aerosol 1 spray intranasal BID Rx Instructions: administer into each nostril ipratropium bromide 21 mcg (0.03 %) spray,non-aerosol 2 spray intranasal BID-TID Rx Instructions: administer into each nostril hydrocortisone [Anusol-HC] 2.5 % cream with perineal applicator 1 appl AR BID-QID PRN (Reason: Itching) polyethylene glycol 3350 [Miralax] 17 gram/dose powder 17 g PO DAILY docusate sodium [Colace] 100 mg capsule 100 mg PO BID fluoxetine 40 mg capsule 80 mg PO DAILY Debrox 6.5 % drops 5 drp otic (ears) DAILY diclofenac sodium-menthol 1.5-10 % combo pack 1 pkg topical DAILY fluticasone propionate [Flonase Allergy Relief] 50 mcg/actuation spray,suspension 2 spray intranasal DAILY Rx Instructions: administer into each nostril albuterol sulfate [ProAir HFA] 90 mcg/actuation HFA aerosol inhaler 2 puff inhalation Q4-6H PRN (Reason: Shortness Of Breath Or Wheezing) naproxen 500 mg tablet 500 mg PO BID bupropion HCl [Wellbutrin SR] 100 mg tablet sustained-release 12 hr 100 mg PO BID ferrous sulfate 325 mg (65 mg iron) tablet 325 mg PO DAILY ascorbic acid (vitamin C) 250 mg tablet 250 mg PO DAILY diphenhydramine HCl [Benadryl] 25 mg capsule 25 mg PO BEDTIME PRN (Reason: Sleep) (DME) blood-glucose meter [FreeStyle Lite Meter] Kit See Rx Instructions .Route Rx Instructions: As directed (DME) FreeStyle Lite Strips Strip See Rx Instructions .Route Rx Instructions: As directed fluticasone propionate [Flovent HFA] 110 mcg/actuation HFA aerosol inhaler 1 puff inhalation BID dextrose 6 gram/15 mL gel 4 g PO Q15M Rx Instructions: until symptoms of low blood sugar are controlled risperidone 0.5 mg tablet 0.5 mg PO BEDTIME omeprazole 40 mg capsule,delayed release(DR/EC) 40 mg PO BID Mirena 20 mcg/24 hours (8 yrs) 52 mg intrauterine device 1 device intrauterine ONCE Qty: 1 0RF Mirena 20 mcg/24 hours (8 yrs) 52 mg intrauterine device intrauterine Referrals: [facility] [Provider Group] Bernadine Ramos FITTER / WELDER [Primary Care Provider] - Interventions: ED Discharge Assessment Last Done: 05/03/24 14:45 Discharge Date/Time: 05/03/24 14:45 Print Language: Citizen Of [place]
[2024-05-03 14:45] VITALS: BP 128/71; PULSE 76; RESP 18; TEMP 36.8; O2SAT 100
== END 2024-05-03 14:45 | disposition home or self-care (01) ==
PROVIDERS: Emergency Provider Emergency Medicine; PCP Nurse Practitioner Primary Care
DX: K59.00 Constipation, unspecified (principal); R10.11 Right upper quadrant pain; Z79.899 Other long term (current) drug therapy
CPT/HCPCS: 36415; 74176; 80053; 81001; 81025; 83690; 85025; 87086; 99282; 99284

== ENCOUNTER 2024-06-23 11:40 | Emergency (ER) | payer MEDICAID, SELFPAY ==
[2024-06-23 12:38] VITALS: BP 123/83; PULSE 78; RESP 16; TEMP 36.5; O2SAT 100; BMI 51.3
--- NOTE | 2024-06-23 12:44 | ED_ITS ---
HPI - GI Bleed General Chief complaint: GI Bleed Stated complaint: Pain upon urination Time Seen by Provider: 06/23/24 13:31 History of Present Illness ED Provider: Agusto PETERSON Narrative: The patient is a 33-year-old female who presents with 3 weeks of intermittent bright red blood per rectum. She says this usually happens when she uses the toilet but she has had a few episodes of spontaneous bleeding in bed at night. She says that she has felt herself wet and then found some blood in her underwear. She has had problems with hemorrhoids in the past. She is concerned about the amount of blood she has seen. She was seen at the [facility] about 10 days ago for the same complaint. She says she frequently feels constipated and is not on any stool softeners at the moment. No fever, sweats, chills. No nausea or vomiting. She also has intermittent abdominal pain. Related Data Home Medications ?Medication ?Instructions ?Recorded ?Confirmed montelukast 10 mg tablet 10 mg PO BEDTIME 06/01/20 11/22/22 (Singulair) trazodone 100 mg tablet 100 mg PO DAILY 06/01/20 11/22/22 omeprazole 40 mg capsule,delayed 40 mg PO BID 11/08/21 11/22/22 release albuterol sulfate 90 mcg/actuation 2 puff inhalation Q4-6H PRN 07/31/22 11/22/22 aerosol inhaler (ProAir HFA) Shortness Of Breath Or Wheezing ascorbic acid (vitamin C) 250 mg 250 mg PO DAILY 07/31/22 11/22/22 tablet azelastine 205.5 mcg (0.15 %) 1 spray intranasal BID 07/31/22 11/22/22 nasal spray blood sugar diagnostic (FreeStyle 07/31/22 11/22/22 Lite Strips) blood-glucose meter (FreeStyle 07/31/22 11/22/22 Lite Meter kit) bupropion HCl 100 mg tablet,12 hr 100 mg PO BID 07/31/22 11/22/22 sustained-release (Wellbutrin SR) carbamide peroxide 6.5 % ear drops 5 drp otic (ears) DAILY 07/31/22 11/22/22 (Debrox) dextrose 6 gram/15 mL oral gel 4 g PO Q15M 07/31/22 11/22/22 diclofenac sodium 1.5 % topical 1 pkg topical DAILY 07/31/22 11/22/22 drops-menthol 10 % roll-on combo pack diphenhydramine HCl 25 mg capsule 25 mg PO BEDTIME PRN Sleep 07/31/22 11/22/22 (Benadryl) docusate sodium 100 mg capsule 100 mg PO BID 07/31/22 11/22/22 (Colace) ferrous sulfate 325 mg (65 mg 325 mg PO DAILY 07/31/22 11/22/22 iron) tablet fluoxetine 40 mg capsule 80 mg PO DAILY 07/31/22 11/22/22 fluticasone propionate 110 1 puff inhalation BID 07/31/22 11/22/22 mcg/actuation HFA aerosol inhaler (Flovent HFA) fluticasone propionate 50 2 spray intranasal DAILY 07/31/22 11/22/22 mcg/actuation nasal spray,suspension (Flonase Allergy Relief) hydrocortisone 2.5 % topical cream 1 appl MI BID-QID PRN Itching 07/31/22 11/22/22 with perineal applicator (Anusol-HC) ipratropium bromide 21 mcg (0.03 2 spray intranasal BID-TID 07/31/22 11/22/22 %) nasal spray naproxen 500 mg tablet 500 mg PO BID 07/31/22 11/22/22 polyethylene glycol 3350 17 17 g PO DAILY 07/31/22 11/22/22 gram/dose oral powder (Miralax) risperidone 0.5 mg tablet 0.5 mg PO BEDTIME 07/31/22 11/22/22 levonorgestrel 21 mcg/24 hr (up to intrauterine 10/12/22 11/22/22 8 years) 52 mg intrauterine device (Mirena) Previous Rx's ?Medication ?Instructions ?Recorded sennosides 8.6 mg tablet (Natural 17.2 mg (2 x 8.6 mg) PO BEDTIME 05/21/22 Senna Laxative) constipation #60 tabs cholecalciferol (vitamin D3) 50 50 mcg PO DAILY #30 caps 09/24/22 mcg (2,000 unit) capsule zinc acetate 50 mg (zinc) capsule 50 mg PO .tiw #14 caps 09/26/22 levothyroxine 100 mcg tablet 200 mcg (2 x 100 mcg) PO DAILY 90 06/25/23 days #180 tabs sucralfate 1 gram tablet (Carafate) 1 g PO BID 4 weeks #56 tabs 05/03/24 polyethylene glycol 3350 17 17 g PO DAILY #238 grams 06/23/24 gram/dose oral powder Allergies Allergy/AdvReac Type Severity Reaction Status Date / Time Seasonal Allergies Allergy Sneezing Verified 06/23/24 12:42 Review of Systems 2 Review of Systems: Yes all other systems are reviewed and are negative [facility] Past Medical History Medical History Reactive hypoglycemia Hypoglycemia Constipation Post-surgical hypothyroidism Elevated liver enzymes Varicose veins of bilateral lower extremities with other complications Obstructive sleep apnea Rheumatoid arthritis Depression ADHD Hypothyroid Morbid obesity Surgical History H/O prior ablation treatment (~2017) History of vein stripping (~2017) Hx of thyroidectomy Family History Family History Father No problems noted. Mother No problems noted. Brother No problems noted. Brother No problems noted. Brother No problems noted. Other No family history of cancer Social History Social History Household Members: Family Household Members Other:: parents Housing: House Are you a primary health care / medical job titles to a significant other at home: No Do you presently have visiting nurse or other home services: Yes Alcohol intake: never Patient Tobacco Use Status: Never used Tobacco service: No Current occupational status: disabled Physical Exam 2 Vital Signs: Vital Signs: Last Vital Signs Temp 98.1 F 06/23/24 15:02 Pulse 81 06/23/24 15:02 Resp 16 06/23/24 15:02 BP 113/54 L 06/23/24 15:02 Pulse Ox 99 06/23/24 15:02 O2 Del Method Room Air 06/23/24 14:57 BMI result Body Mass Index 51.3 Const: Other: The patient is awake, alert, pleasant, cooperative. She does not appear acutely ill. She has a BMI of 51. HEENT: Other: The face is unremarkable. Mucous membranes moist. Eyes: Other: Pupils are round equal, conjunctivae are clear, extraocular movements intact. Neck: Neck: Yes full ROM Resp: Effort & Inspection: normal respiratory effort Auscultation: clear to auscultation bilaterally Cardio: Rate: regular rate Rhythm: regular rhythm Heart sounds: S1 normal heart sound present and S2 normal heart sound present GI: Other: Abdomen is soft and nontender. Rectal exam revealed a moderate-sized external hemorrhoid which was not significantly tender. There was no active bleeding. Digital rectal exam did not reveal any masses. There was a small amount of brown stool, non melenic, in the rectal vault. There was no blood in the rectal vault. Skin: Other: Skin is dry and unremarkable. Neuro: Other: The patient is awake and alert with normal mental status. Cranial nerves are grossly intact. She moves her extremities normally. She has a normal gait. Extrem: Other: No peripheral edema Course Course Course Narrative: This is a rapid medical exam performed by Verna Mckeon PA-C. The patient is a 33-year-old female with a history of obesity, presenting with lower GI bleed x3 days. Patient is having numerous, large volume bloody bowel movements passing clot. The patient is hemodynamically stable, her abdomen is nontender, obese no guarding. We will be screening basic labs, coags, type and screen. She may require CT. The patient is hemodynamically stable and can return to the waiting room pending her full assessment. Medical Decision Making Medical Decision Making MDM Narrative: the patient is a 33-year-old who presents for evaluation of bright red blood per rectum which I suspect is hemorrhoidal bleeding. There is no active bleeding currently. Her labs including her hemoglobin are stable. Her vital signs are unremarkable. The patient reports a fairly common sense of being constipated. She will be started on MiraLax daily. She was referred to the general surgery clinic for evaluation at that office. Lab Data 06/23/24 13:15 06/23/24 13:15 Labs: Lab Results 06/23/24 Range/Units 13:15 WBC 10.9 H (4.8-10.8) X10*3/uL RBC 4.31 (4.20-5.50) X10*6/uL Hgb 11.7 L (12.0-16.0) g/dl Hct 36.7 L (37.0-47.0) % MCV 85.2 (80.0-98.0) fL MCH 27.1 (27.0-33.0) pg MCHC 31.9 (31.0-35.0) g/dl RDW 14.3 (11.0-16.0) % Plt Count 153 L (160-400) X10*3/uL MPV 12.4 H (9.4-12.3) fL Immature Gran % (Auto) 1.2 H (0.0-0.4) % Neut % (Auto) 71.0 (45-73) % Lymph % (Auto) 18.7 L (20-40) % [place] % (Auto) 7.2 (2-11) % Eos % (Auto) 1.4 (0-4) % Baso % (Auto) 0.5 (0-2) % Lymph # (Auto) 2.1 (1.2-4.9) X10*3/uL [place] # (Auto) 0.8 (0.1-1.2) X10*3/uL Eos # (Auto) 0.2 (0.0-0.4) X10*3/uL Baso # (Auto) 0.1 (0.0-0.2) X10*3/uL Abs Immat Gran (auto) 0.13 H (0.00-0.03) X10*3/uL Absolute Neuts (auto) 7.8 (2.0-8.3) x10*3/uL Absolute Nucleated RBC 0.000 (0.0-0.012) X10*3/uL Nucleated RBC % (auto) 0.0 (0.0-0.2) /100WBC PT 13.2 H (10.9-12.4) SEC INR 1.1 (0.9-1.1) Sodium 138 (135-145) mmol/L Potassium 3.8 (3.3-5.1) mmol/L Chloride 106 (96-108) mmol/L Carbon Dioxide 24 (22-29) mmol/L Anion Gap 12 (12-20) BUN 10 (9-16) mg/dL Creatinine 0.82 (0.5-1.4) mg/dL Estim Creat Clear Calc 136.6 Estimated GFR > 60 Random Glucose 172 H (60-115) mg/dL Calcium 9.2 (8.4-10.2) mg/dL Magnesium 2.0 (1.6-2.6) mg/dL Total Bilirubin 0.5 (0.0-1.0) mg/dL AST 105 H (5-31) U/L ALT 100 H (0-31) U/L Alkaline Phosphatase 85 (39-117) U/L Total Protein 8.0 (6.5-8.0) g/dL Albumin 4.2 (3.5-5.0) g/dL Beta HCG, Quant < 2 mIU/mL Blood Type AB Positive Antibody Screen NEGATIVE Discharge Plan Discharge Clinical Impression: Bleeding hemorrhoids Patient Disposition: Home, Self-Care Instructions: Hemorrhoids (ED) Additional Instructions: Your blood counts today are good. I think that you are having hemorrhoidal bleeding. I think it would be good for you to be on a stool softener. I have sent a prescription for MiraLax (polyethylene glycol) to your pharmacy. Please take a dose daily. The doses 17 g of powder mixed in a large glass of water. Please contact the Surgical office to try to set up a follow up appointment to discuss your hemorrhoids further. Return to the emergency room if significantly worse. Prescriptions: New polyethylene glycol 3350 17 gram/dose powder 17 g PO DAILY Qty: 238 0RF No Action sennosides [Natural Senna Laxative] 8.6 mg tablet 17.2 mg PO BEDTIME Qty: 60 2RF cholecalciferol (vitamin D3) 50 mcg (2,000 unit) capsule 50 mcg PO DAILY Qty: 30 5RF zinc acetate 50 mg (zinc) capsule 50 mg PO .tiw Qty: 14 2RF levothyroxine 100 mcg tablet 200 mcg PO DAILY 90 Days Qty: 180 3RF sucralfate [Carafate] 1 gram tablet 1 g PO BID 28 Days Qty: 56 0RF trazodone 100 mg tablet 100 mg PO DAILY montelukast [Singulair] 10 mg tablet 10 mg PO BEDTIME azelastine 205.5 mcg (0.15 %) spray,non-aerosol 1 spray intranasal BID Rx Instructions: administer into each nostril ipratropium bromide 21 mcg (0.03 %) spray,non-aerosol 2 spray intranasal BID-TID Rx Instructions: administer into each nostril hydrocortisone [Anusol-HC] 2.5 % cream with perineal applicator 1 appl MI BID-QID PRN (Reason: Itching) polyethylene glycol 3350 [Miralax] 17 gram/dose powder 17 g PO DAILY docusate sodium [Colace] 100 mg capsule 100 mg PO BID fluoxetine 40 mg capsule 80 mg PO DAILY Debrox 6.5 % drops 5 drp otic (ears) DAILY diclofenac sodium-menthol 1.5-10 % combo pack 1 pkg topical DAILY fluticasone propionate [Flonase Allergy Relief] 50 mcg/actuation spray,suspension 2 spray intranasal DAILY Rx Instructions: administer into each nostril albuterol sulfate [ProAir HFA] 90 mcg/actuation HFA aerosol inhaler 2 puff inhalation Q4-6H PRN (Reason: Shortness Of Breath Or Wheezing) naproxen 500 mg tablet 500 mg PO BID bupropion HCl [Wellbutrin SR] 100 mg tablet sustained-release 12 hr 100 mg PO BID ferrous sulfate 325 mg (65 mg iron) tablet 325 mg PO DAILY ascorbic acid (vitamin C) 250 mg tablet 250 mg PO DAILY diphenhydramine HCl [Benadryl] 25 mg capsule 25 mg PO BEDTIME PRN (Reason: Sleep) (DME) blood-glucose meter [FreeStyle Lite Meter] Kit See Rx Instructions .Route Rx Instructions: As directed (DME) FreeStyle Lite Strips Strip See Rx Instructions .Route Rx Instructions: As directed fluticasone propionate [Flovent HFA] 110 mcg/actuation HFA aerosol inhaler 1 puff inhalation BID dextrose 6 gram/15 mL gel 4 g PO Q15M Rx Instructions: until symptoms of low blood sugar are controlled risperidone 0.5 mg tablet 0.5 mg PO BEDTIME omeprazole 40 mg capsule,delayed release(DR/EC) 40 mg PO BID Mirena 20 mcg/24 hours (8 yrs) 52 mg intrauterine device 1 device intrauterine ONCE Qty: 1 0RF Mirena 20 mcg/24 hours (8 yrs) 52 mg intrauterine device intrauterine Referrals: [facility] [place] [facility] [Provider Group] (Bleeding hemorrhoids) Bernadine Ramos NP [Primary Care Provider] - (Bleeding hemorrhoids) Interventions: ED Discharge Assessment Last Done: 06/23/24 15:02 Discharge Date/Time: 06/23/24 15:04 Print Language: Monegasque
[2024-06-23 13:19] LABS: MANUAL DIFF FLAG NO
[2024-06-23 13:29] LABS: INTERNATIONAL NORM RATIO 1.1 (0.9-1.1); Prothrombin Time 13.2 SEC (10.9-12.4)
[2024-06-23 13:32] LABS: Basophils Absolute Auto 0.1 X10*3/uL (0.0-0.2); Basophils Percent Auto 0.5 % (0-2); Eosinophils Absolute Auto 0.2 X10*3/uL (0.0-0.4); Eosinophils Percent Auto 1.4 % (0-4); Hematocrit 36.7 % (37.0-47.0); Hemoglobin 11.7 g/dl (12.0-16.0); Imm Gran Abs Auto 0.13 X10*3/uL (0.00-0.03); Imm Gran Pct Auto 1.2 % (0.0-0.4); Lymphocytes Absolute Auto 2.1 X10*3/uL (1.2-4.9); Lymphocytes Percent Auto 18.7 % (20-40); Mean Corpuscular HGB Conc 31.9 g/dl (31.0-35.0); Mean Corpuscular Hemoglobin 27.1 pg (27.0-33.0); Mean Corpuscular Volume 85.2 fL (80.0-98.0); Mean Platelet Volume 12.4 fL (9.4-12.3); Monocytes Absolute Auto 0.8 X10*3/uL (0.1-1.2); Monocytes Percent Auto 7.2 % (2-11); Neutrophils Absolute Auto 7.8 x10*3/uL (2.0-8.3); Platelet Count 153 X10*3/uL (160-400); Red Blood Count 4.31 X10*6/uL (4.20-5.50); Red Cell Distribution Width 14.3 % (11.0-16.0); White Blood Count 10.9 X10*3/uL (4.8-10.8)
[2024-06-23 13:41] LABS: Alanine Aminotransferase 100 U/L (0-31); Albumin Level 4.2 g/dL (3.5-5.0); Alkaline Phosphatase 85 U/L (39-117); Anion Gap 12 (12-20); Aspartate Amino Transferase 105 U/L (5-31); Bilirubin Total 0.5 mg/dL (0.0-1.0); Blood Urea Nitrogen 10 mg/dL (9-16); Calcium 9.2 mg/dL (8.4-10.2); Carbon Dioxide 24 mmol/L (22-29); Chloride 106 mmol/L (96-108); Creatinine Clr Calc Pharmacy 136.6; Estimated Glomerular Filt Rate > 60; Glucose Random 172 mg/dL (60-115); Potassium 3.8 mmol/L (3.3-5.1); Sodium 138 mmol/L (135-145)
--- NOTE | 2024-06-23 13:45 | PC.NURSE ---
Patient noted to not be in ED 17, was told by another staff member that patient was seen in the cafeteria stocking up on kitkats and other snack foods. This RN and Dr. Liz went to the cafeteria to search for patient with no success.
--- NOTE | 2024-06-23 13:47 | PC.NURSE ---
Pt found in waiting room, brought to ED 17.
[2024-06-23 13:54] LABS: HCG Quantitative < 2 mIU/mL
[2024-06-23 14:57] VITALS: BP 113/54; PULSE 81; RESP 16; TEMP 36.7; O2SAT 99
[2024-06-23 15:02] VITALS: BP 113/54; PULSE 81; RESP 16; TEMP 36.7; O2SAT 99
== END 2024-06-23 15:04 | disposition home or self-care (01) ==
PROVIDERS: Physician Assistant Medical; Emergency Provider Emergency Medicine; PCP Nurse Practitioner Primary Care
DX: K64.8 Other hemorrhoids (principal); R30.0 Dysuria; Z79.899 Other long term (current) drug therapy
CPT/HCPCS: 36415; 80053; 83735; 84702; 85025; 85610; 86850; 86900; 86901; 99283

== ENCOUNTER 2024-06-24 11:14 | Outpatient (AMB) | payer MEDICAID, SELFPAY ==
[2024-06-24 11:21] VITALS: BMI 51.1
--- NOTE | 2024-06-24 11:21 | MHC.OFFVIS ---
Vital Signs 06/24/24 11:21 Height 5 ft 4 in Weight 298 lb BMI 51.1 Intake Visit Reasons: Perianal abscess, hemorrhoids Intake Note: This patient presents for perianal abscess, hemorrhoids. Pt c/o; reports completed course of antibiotics, reports no pain, reports no discharge. Card Room Manager Required: No Accompanied by: Self / Same As Patient Allergies Seasonal Allergies Allergy (Verified 06/24/24 11:22) Sneezing Medication List - Last Reconciled 06/24/24 by Ricardo Loya MD albuterol sulfate 90 mcg/actuation (ProAir HFA) 2 puffs inhalation Q4-6H PRN ascorbic acid (vitamin C) 250 mg PO DAILY azelastine 1 spray intranasal BID blood sugar diagnostic (FreeStyle Lite Strips) As directed blood-glucose meter (FreeStyle Lite Meter kit) As directed bupropion HCl SR (Wellbutrin SR) 100 mg PO BID carbamide peroxide 6.5% (Debrox) 5 drps otic (ears) DAILY cholecalciferol (vitamin D3) 50 mcg PO DAILY dextrose 4 grams PO Q15M diclofenac sodium-menthol 1.5-10 % 1 pkg topical DAILY diphenhydramine HCl (Benadryl) 25 mg PO BEDTIME PRN docusate sodium (Colace) 100 mg PO BID ferrous sulfate 325 mg PO DAILY fluoxetine 80 mg PO DAILY fluticasone propionate 50 mcg/actuation (Flonase Allergy Relief) 2 sprays intranasal DAILY fluticasone propionate 110 mcg/actuation (Flovent HFA) 1 puff inhalation BID hydrocortisone 2.5% (Anusol-HC) 1 appl MD BID-QID PRN ipratropium bromide 2 sprays intranasal BID-TID levonorgestrel (Mirena) intrauterine levothyroxine 200 mcg (2 x 100 mcg) PO DAILY 90 days montelukast (Singulair) 10 mg PO BEDTIME naproxen 500 mg PO BID omeprazole 40 mg PO BID polyethylene glycol 3350 17 grams PO DAILY polyethylene glycol 3350 (Miralax) 17 grams PO DAILY risperidone 0.5 mg PO BEDTIME sennosides (Natural Senna Laxative) 17.2 mg (2 x 8.6 mg) PO BEDTIME sucralfate (Carafate) 1 g PO BID 4 weeks trazodone 100 mg PO DAILY zinc acetate 50 mg PO .tiw HPI HPI Perianal abscess, hemorrhoids: Details: [age] year female referred for a question of a perianal abscess versus hemorrhoids. She had gone to her primary care physician 2 weeks ago because of pain in the area of the anus. She was told she may have a perianal abscess or hemorrhoids so she was sent to me. She also describes periodic passage bright blood per rectum. She admits to a long history of constipation. She is able to sit down comfortably. She says her pain has resolved pretty much. [facility] Medical History Reactive hypoglycemia Hypoglycemia Constipation Post-surgical hypothyroidism Elevated liver enzymes Varicose veins of bilateral lower extremities with other complications Obstructive sleep apnea Rheumatoid arthritis Depression ADHD Hypothyroid Morbid obesity Surgical History H/O prior ablation treatment (~2017) History of vein stripping (~2017) Hx of thyroidectomy Family History Father No problems noted. Mother No problems noted. Brother No problems noted. Brother No problems noted. Brother No problems noted. Other No family history of cancer Social History Household Members: Family Household Members Other:: parents Housing: House Are you a primary child care attendant school to a significant other at home: No Do you presently have visiting nurse or other home services: Yes Alcohol intake: never Patient Tobacco Use Status: Never used Tobacco service: No Current occupational status: disabled Female Reproductive History Menstrual Age of Menarche: 13 Review of Systems Const Denies chills and Denies fever(s) Card Denies chest pain, Denies dyspnea and Denies dyspnea on exertion Resp Denies cough, Denies dyspnea and Denies dyspnea on exertion GI Reports hematochezia, Denies change in bowel habits and Reports constipation Denies hematuria Musc Denies back pain and Denies limited range of motion Neuro Denies focal weakness and Denies convulsions Psych Denies depression and Denies mood swings Physical Exam Vital Signs: BMI result Body Mass Index 51.1 Const Other: Morbidly obese General: comfortable and no acute distress Resp Effort & Inspection: normal respiratory effort Cardio Rate: regular rate GI Other: Rectal exam shows a large thrombosed external hemorrhoid, anteriorly, nontender currently, not acutely inflamed, no perianal sinuses or induration, no tenderness in the anal orifice, anoscopy deferred for now because of the large external hemorrhoid Palpation (GI): Soft to palpation, not firm, nontender and no guarding Assessment & Plan Assessment & Plan (1) External hemorrhoid, thrombosed: Code(s): K64.5 - Perianal venous thrombosis Category: Medical Plan: She has a thrombosed external hemorrhoid measuring about 1.5 cm. This is currently noninflamed. I do not see any signs of a perianal abscess I advised her to do hot Sitz baths for now. I explained to her the benefits of control of her constipation to her issues with the hemorrhoids. She says she is being arranged to have a colonoscopy by her primary care physician I will see her in the office in about 2 months to see how she is doing. I advised her the benefits of weight loss as well. Coding Level of Care Code New Pt Level 3 (09102) Diagnoses External hemorrhoid, thrombosed K64.5
== END 2024-06-24 11:31 | disposition home or self-care (01) ==
PROVIDERS: PCP Nurse Practitioner Primary Care; Visit Provider Surgery
DX: K64.5 Perianal venous thrombosis (principal)
CPT/HCPCS: 99203

== ENCOUNTER → 2024-06-24 11:14 | Outpatient (BNVA) | payer MEDICAID, SELFPAY | PROVIDERS: PCP Nurse Practitioner Primary Care; Visit Provider Surgery | DX: K64.5 Perianal venous thrombosis (principal) | CPT/HCPCS: 99202 ==

== ENCOUNTER 2024-07-22 12:36 | Outpatient (AMB) | payer MEDICAID, SELFPAY ==
--- NOTE | 2024-07-22 12:51 | A.OFFVIS_ITS ---
Vital Signs 07/22/24 12:55 Height 5 ft 4 in Weight 283 lb 1.176 oz BMI 48.6 BP 132/76 Blood Pressure Location Lt brachial Position Sitting Pulse 92 Pulse Source Pulse Oximeter Pulse Oximetry (%) 96 Oxygen Delivery Method Room Air Comment 166 Glucose - Food within the last hour. Intake Visit Reasons: Rectal bleeding Intake Note: Relevant Flags or Indicators ? Requires Telesales Team Leader? Pt no shows many appointments. Has not been seen since 2021 due to multiple no shows. Dolores presents in office today for a scheduled consultation to re-establish care. CC; Pt was supposed to have abd US within the last year, pt n/s radiology appt. Pt was seen at ED for Abd / GI related sx. Labs done at ED, no imaging performed. Relevant GI Sx as reported per pt? Nausea ? Fecal abnormalities - Loose oily stools - melena + hematochezia. ? Abdominal Pain - B/L UQ. Pt notices foods that have higher oil and grease have been triggering her sx more. Pt has been having more salads and less greasy foods which has been helping with pain and BMs. ? Bloating ? Hx of any recent surgeries? None Telesales Team Leader Required: No Allergies Seasonal Allergies Allergy (Verified 07/22/24 12:51) Sneezing HPI HPI Rectal bleeding: Details: LAST VISIT RUQ abdominal pain Patient reports occasional postprandial right upper quadrant pain. Patient states that the pain moves to her left side sometimes and to the lower part of her abdomen on both sides. Patient states that she was having diarrhea. She states that she has been taking Linzess, however patient has not had a refill for long times all not sure if she is really compliant. Patient's LFTs are elevated. Back in August of 2021 her AST was 189 and ALT 141. We will do HIDA scan although no cholelithiasis noted on previous CT scan or ultrasound. Constipation Chronic constipation. Patient was taking Linzess and reports that she was having a lot of diarrhea. I am not sure if patient is really compliant with taking her medications. She states that her LAP MACHINE OPERATOR is preparing her medications and getting them ready for her. I will have her start taking Senokot 2 tablets at bedtime and Citrucel to help her bulk her stools. Patient does report to have a loose stool and then being constipated. Patient was encouraged to change her diet Diarrhea Patient reports occasional loose stools specially after she anything that is greasy or fried. Will start her on Citrucel to help her bulk her stools. Most likely this is related to the food that she eats. Patient does report to have abdominal bloating and right upper quadrant pain postprandially. Her CT scan and her ultrasound showed no cholelithiasis, however will check her gallbladder function. HIDA scan ordered. IBS (irritable bowel syndrome) Discussed with patient the importance of avoiding dietary triggers and staying away from food that it is spicy, greasy or fried. Discussed with her that her liver enzyme increased and she needs to try to stay away from food that is high in fat. Discussed with her also FODMAP diet GERD (gastroesophageal reflux disease) Patient can continue taking omeprazole and famotidine at bedtime on as needed basis. She was encouraged to avoid dietary triggers in late night snacking. Importance of staying upright for minimum 3 hours after meals addressed. I will see her in 3 months. Patient was encouraged to get her lab work done will check vitamin B12, folate, C-reactive protein, vitamin-D level and transglutaminase is. She is agreeable to this plan and verbalizes understanding of instructions. She was given the opportunity to ask questions and all questions answered. ? Thank you for allowing me to participate in her care Plan Orders Orders Pancreatic Elastase-1 11/08/21 R19.7 Vitamin B12 and Folate 11/08/21 R19.7 C Reactive Protein 11/08/21 K58.9 Vitamin D 25-OH (D2 and D3) 11/08/21 E55.9 Transglutaminase IgA 11/08/21 R10.11 Transglutaminase Ab IgG 11/08/21 R14.0 NM hepatobiliary w pharm 11/08/21 R10.11 Medications New methylcellulose (laxative) (Citrucel) take it with full glass of water 500 mg PO DAILY 30 tabs 2RF K59.00 sennosides (Natural Senna Laxative) 17.2 mg (2 x 8.6 mg) PO BEDTIME 60 tabs 2RF constipation K59.00 Discontinued Tirosint JORGE A. No substitutions. Brand name medically necessary. Discontinued Reason: Doctor's Order 200 mcg PO DAILY 30 caps 11RF NS Tirosint Discontinued Reason: Doctor's Order 1 capsule Sat, , Th, Sat and 2 pill Mon, Sat, Sat. PO daily; (to be taken with 200mcg Tirosint daily) JORGE A No substitutions Brand name medically necessary 30 days 40 caps 11RF NS E89.0 TODAY'S VISIT Patient is here today for follow-up. Patient reports that she has lost little weight, has not seen me for almost 2 years, never came back for follow-up to discuss results. Patient has been having constipation, however occasionally she will have loose stools. Diagnosed with hemorrhoids, however she does not require any surgery at this moment. HIDA scan done couple years ago was normal. Patient reports that her pain mainly is in the epigastric area to her umbilical area. Patient is not taking any medication at this time no PPI or H2 becky. Patient states that she is trying to eat better. Patient is on semaglutide right now and states that she is trying to lose weight. Patient denies any nausea or vomiting. Reports occasional dyspepsia without dysphagia or odynophagia. Patient denies melena, hematochezia, unintentional weight loss or ribbon like stools. Couple episodes of bleeding hemorrhoids after straining. Last visit to ER for that was in June. History of elevated liver enzymes [facility] Medical History Reactive hypoglycemia Hypoglycemia Constipation Post-surgical hypothyroidism Elevated liver enzymes Varicose veins of bilateral lower extremities with other complications Obstructive sleep apnea Rheumatoid arthritis Depression ADHD Hypothyroid Morbid obesity Surgical History H/O prior ablation treatment (~2017) History of vein stripping (~2017) Hx of thyroidectomy Family History Father No problems noted. Mother No problems noted. Brother No problems noted. Brother No problems noted. Brother No problems noted. Other No family history of cancer Social History Household Members: Family Household Members Other:: parents Housing: House Are you a primary interior plant caretaker to a significant other at home: No Do you presently have visiting nurse or other home services: Yes Alcohol intake: never Patient Tobacco Use Status: Never used Tobacco service: No Current occupational status: disabled Female Reproductive History Menstrual Age of Menarche: 13 Review of Systems Const Denies weight gain and Denies weight loss ENT Reports no additional complaints, Denies dysphagia and Denies odynophagia Card Reports no additional complaints Resp Reports no additional complaints GI Reports abdominal pain (Epigastric), Denies belching, Denies melena, Reports bloating, Denies change in bowel habits, Reports constipation, Denies dysphagia, Denies excessive flatus, Denies dyspepsia, Reports heartburn, Denies diarrhea, Reports loose stools, Denies nausea, Denies odynophagia and Denies vomiting Musc Reports no additional complaints Neuro Reports no additional complaints Psych Reports no additional complaints Endo Reports no additional complaints Physical Exam Vital Signs: Last Vital Signs Pulse 92 07/22/24 12:55 BP 132/76 07/22/24 12:55 Pulse Ox 96 07/22/24 12:55 Oxygen Delivery Method Room Air 07/22/24 12:55 BMI result Body Mass Index 48.6 Const General: healthy appearing and no acute distress Nutritional Appearance: obese Orientation/consciousness: patient oriented x3 Resp Effort & Inspection: normal respiratory effort, able to speak in complete sentences, no tracheal deviation and symmetric chest movement Auscultation: clear to auscultation bilaterally Cardio Rate: regular rate GI Inspection: Yes normal to inspection, No distended and Yes obesity Palpation (GI): Soft to palpation, not firm, nontender and No hepatosplenomegaly present Auscultation: normal bowel sounds General: Yes no CVA tenderness Back/Spine/Pelvis Back: no CVA tenderness Skin General skin exam: elasticity normal, turgor normal and dry skin Neuro General: patient oriented x3 Psych Appearance: grossly normal Mental Status: mental status grossly normal Assessment & Plan Assessment & Plan (1) Thrombocytopenia: Code(s): D69.6 - Thrombocytopenia, unspecified Category: Medical (2) Constipation: Code(s): K59.00 - Constipation, unspecified Category: Medical Qualifiers: Constipation type: chronic idiopathic constipation Qualified Code(s): K59.04 - Chronic idiopathic constipation (3) Transaminitis: Code(s): R74.01 - Elevation of levels of liver transaminase levels (4) GERD (gastroesophageal reflux disease): Code(s): K21.9 - Gastro-esophageal reflux disease without esophagitis Qualifiers: Esophagitis presence: esophagitis presence not specified Qualified Code(s): K21.9 - Gastro-esophageal reflux disease without esophagitis (5) Postprandial epigastric pain: Code(s): R10.13 - Epigastric pain (6) Postprandial abdominal bloating: Code(s): R14.0 - Abdominal distension (gaseous) Plan We will book upper endoscopy and colonoscopy for patient. Message sent to surgical schedulers to book both. Patient will start taking Nexium in the morning and famotidine at bedtime. Avoid dietary triggers and late night snacking. Staying upright for minimum 3 hours after meals discussed with patient. Patient will take fiber supplement after breakfast and senna after dinner to help her evacuate her bowels better. Script for Proctosol send. Patient was also encouraged to do Sitz baths with Epsom salts. Follow-up in the office in 3 months to discuss going for colonoscopy. She is agreeable to this plan and verbalizes understanding of instructions. She was given the opportunity to ask questions and all questions answered. Thank you for allowing me to participate in her care Medications: New esomeprazole magnesium (Nexium) 40 mg PO DAILY 30 caps 5RF K21.9 - Gastro- esophageal reflux disease without esophagitis methylcellulose (laxative) (Citrucel) 500 mg PO DAILY 30 tabs 2RF K59.00 - Constipation, unspecified famotidine (Pepcid) 20 mg PO BEDTIME 30 tabs 3RF K21.9 - Gastro-esophageal reflux disease without esophagitis hydrocortisone 2.5% (Anusol-HC) 1 appl PA BID-QID PRN 30 grams 3RF Itching Refilled sennosides (Natural Senna Laxative) 17.2 mg (2 x 8.6 mg) PO BEDTIME 60 tabs 2RF constipation K59.00 - Constipation, unspecified Discontinued sucralfate (Carafate) Discontinued Reason: Doctor's Order 1 g PO BID 4 weeks 56 tabs 0RF Coding Level of Care Code Est Pt Level 4 (16836) Diagnoses Thrombocytopenia D69.6 Chronic idiopathic constipation K59.04 Constipation type: chronic idiopathic constipation Transaminitis R74.01 Gastroesophageal reflux disease, unspecified whether esophagitis present K21.9 Esophagitis presence: esophagitis presence not specified Postprandial epigastric pain R10.13 Postprandial abdominal bloating R14.0 Time Spent (min) 40 Comment 25 minutes spent with patient and additional 15 minutes spent reviewing her records
[2024-07-22 12:55] VITALS: BP 132/76; PULSE 92; O2SAT 96; BMI 48.6
== END 2024-07-22 13:29 | disposition home or self-care (01) ==
PROVIDERS: PCP Nurse Practitioner Primary Care; Visit Provider Nurse Practitioner Family
DX: D69.6 Thrombocytopenia, unspecified (principal); K59.04 Chronic idiopathic constipation; R74.01 Elevation of levels of liver transaminase levels; K21.9 Gastro-esophageal reflux disease without esophagitis; R10.13 Epigastric pain; R14.0 Abdominal distension (gaseous)
CPT/HCPCS: 99214

== ENCOUNTER → 2024-07-22 12:36 | Outpatient (BNVA) | payer MEDICAID, SELFPAY | PROVIDERS: PCP Nurse Practitioner Primary Care; Visit Provider Nurse Practitioner Family | DX: K59.04 Chronic idiopathic constipation (principal); K21.9 Gastro-esophageal reflux disease without esophagitis; D69.6 Thrombocytopenia, unspecified; R74.01 Elevation of levels of liver transaminase levels; R10.13 Epigastric pain; R14.0 Abdominal distension (gaseous) | CPT/HCPCS: 99212 ==

== ENCOUNTER 2024-08-12 15:24 | Outpatient (REF) | payer MEDICAID, SELFPAY ==
[2024-08-12 17:17] LABS: Free T4 (Free Thyroxine) < 0.42 ng/dL (0.71-1.85); Thyroid Stimulating Hormone > 100.00 uIU/mL (0.32-4.0)
== END 2024-08-12 15:25 | disposition home or self-care (01) ==
LOC: HO.LAB 15:24
PROVIDERS: PCP Nurse Practitioner Primary Care; Visit Provider Student in an Organized Health Care Education/Training Program
DX: E03.9 Hypothyroidism, unspecified (principal)
CPT/HCPCS: 36415; 84439; 84443

== ENCOUNTER 2024-08-13 08:34 | Outpatient (AMB) | payer MEDICAID, SELFPAY ==
[2024-08-13 08:47] VITALS: BP 128/62; PULSE 94; BMI 48.7
--- NOTE | 2024-08-13 08:47 | A.OFFVIS_ITS ---
Vital Signs 08/13/24 08:47 Height 5 ft 4 in Weight 283 lb 11.759 oz BMI 48.7 BP 128/62 Blood Pressure Location Lt brachial Position Sitting Pulse 94 Pulse Source Pulse Oximeter Intake Visit Reasons: Hypothyroidism Intake Note: Patient present today for Hypothyroidism follow up visit. Dockmaster Required: No Accompanied by: Self / Same As Patient Allergies Seasonal Allergies Allergy (Verified 08/13/24 08:57) Sneezing Medication List - Last Reconciled 08/13/24 by Madai Gibson MD albuterol sulfate 90 mcg/actuation (ProAir HFA) 2 puffs inhalation Q4-6H PRN ascorbic acid (vitamin C) 250 mg PO DAILY azelastine 1 spray intranasal BID blood sugar diagnostic (FreeStyle Lite Strips) As directed blood-glucose meter (FreeStyle Lite Meter kit) As directed bupropion HCl SR (Wellbutrin SR) 100 mg PO BID carbamide peroxide 6.5% (Debrox) 5 drps otic (ears) DAILY cholecalciferol (vitamin D3) 50 mcg PO DAILY dextrose 4 grams PO Q15M diclofenac sodium-menthol 1.5-10 % 1 pkg topical DAILY diphenhydramine HCl (Benadryl) 25 mg PO BEDTIME PRN docusate sodium (Colace) 100 mg PO BID esomeprazole magnesium (Nexium) 40 mg PO DAILY famotidine (Pepcid) 20 mg PO BEDTIME ferrous sulfate 325 mg PO DAILY flash glucose sensor (FreeStyle Angi 2 Sensor kit) As directed fluoxetine 80 mg PO DAILY fluticasone propionate 50 mcg/actuation (Flonase Allergy Relief) 2 sprays intranasal DAILY fluticasone propionate 110 mcg/actuation (Flovent HFA) 1 puff inhalation BID hydrocortisone 2.5% (Anusol-HC) 1 appl MS BID-QID PRN ipratropium bromide 2 sprays intranasal BID-TID levonorgestrel (Mirena) intrauterine levothyroxine 200 mcg (2 x 100 mcg) PO DAILY methylcellulose (laxative) (Citrucel) 500 mg PO DAILY montelukast (Singulair) 10 mg PO BEDTIME naproxen 500 mg PO BID polyethylene glycol 3350 17 grams PO DAILY risperidone 2 mg PO BEDTIME semaglutide (Ozempic) 1 mg subcut QWEEK sennosides (Natural Senna Laxative) 17.2 mg (2 x 8.6 mg) PO BEDTIME trazodone 50 mg PO BEDTIME zinc acetate 50 mg PO .tiw HPI Comments Details: 34 YO Female with a PMHx of Graves disease status post total thyroidectomy when she was 17 years old, now with post surgical Hypothyroidism who is seen in F/U for hypothyroidism . Prior HPI She has a longstanding history of hypothyroidism with TSH >100. She initially reported good compliance, so she completed a levothyroxine abosorption test in our office in 2021. This revealed no issues with absorption as her FT4 raised appropriately. She then admitted to noncompliance with her medication. She then was compliant with tirosint 175 mcg PO daily and TSH improved significantly, but TSH remained approximately 10. Her dose of levothyroxine was increased to 250 mcg PO daily. She reports good compliance TSH was low recently in 2022 and levothyroxine was decreased to 200 mcg She was also diagnosed with reactive hypoglycemia based on her 4 hour OGTT revealing decline in her blood sugar from 149 to 66 at the 3-4 hour time point. She was recommended to follow a very low carbohydrate diet and reports hypoglycemia has resolved with this. Interval history Labs 08/12/24 showed TSH of >100 and fee T4 <0.42 Patient tells me she has a nurse who observes her take 200 mcg of levothyroxine daily , around 9 AM, waits an hour before eats breakfast or drinks coffee Was on turlicity for the past year for weigth management and type 2 DM Started Ozempic currenlty on 1 mg weekly started in June or July 2024 Weight down by 20 lbs in the past month She is also taking omeprazole 40 mg daily at the same as her thyroid medication She is denying any fatigue , no cold intolerance , having diarrhea and rectal bleeding concerning for colitis saw GI pending EGD and colonoscopy in November 2023, reporting hair loss LMP 08/02/24, periods are regular Currently not sexually active, has IUD Physical exam General: sitting comfortably in no acute distress HEENT: normocephalic/atraumatic, moist oral mucosa Neck: supple, symmetrical, no thyromegaly, surgical scar noted Cardiac: normal heart sounds Pulm: normal breath sounds B/L, no added breath sounds Abd: not distended, no tenderness Extremities: no edema, no signs of myxedema Neuro: AAO x3, Speech: normal, no facial droop, moving all 4 extremities Labs: Laboratory Tests 11/02/22 11/02/22 11/02/22 07:49 07:49 07:49 Sodium 140 Potassium 3.9 Creatinine 0.69 Estimated GFR > 60 Hemoglobin A1c % 6.0 Glucose Tolerance Insulin Level 22 Proinsulin C-Peptide Beta-Hydroxybutyrate/Acetoacetate TSH 0.62 Free T4 1.25 DHEA Sulfate Insulin-like GF II Random Cortisol ACTH 34 11/02/22 11/02/22 11/02/22 07:49 07:49 07:50 Sodium Potassium Creatinine Estimated GFR Hemoglobin A1c % Glucose Tolerance Insulin Level Proinsulin 16.4 C-Peptide 3.53 Beta-Hydroxybutyrate/Acetoacetate 0.05 TSH Free T4 DHEA Sulfate 85 Insulin-like GF II 458 Random Cortisol 9.2 ACTH Laboratory Tests 12/13/23 08/12/24 11:25 15:43 TSH 1.16 > 100.00 H Free T4 0.94 < 0.42 L [facility] Medical History Reactive hypoglycemia Hypoglycemia Constipation Post-surgical hypothyroidism Elevated liver enzymes Varicose veins of bilateral lower extremities with other complications Obstructive sleep apnea Rheumatoid arthritis Depression ADHD Hypothyroid Morbid obesity Surgical History H/O prior ablation treatment (~2017) History of vein stripping (~2018) Hx of thyroidectomy Family History Father No problems noted. Mother No problems noted. Brother No problems noted. Brother No problems noted. Brother No problems noted. Other No family history of cancer Social History Household Members: Family Household Members Other:: parents Housing: House Are you a primary health care facility administrator to a significant other at home: No Do you presently have visiting nurse or other home services: Yes Alcohol intake: never Patient Tobacco Use Status: Never used Tobacco service: No Current occupational status: disabled Female Reproductive History Menstrual Age of Menarche: 13 Physical Exam Vital Signs: Last Vital Signs Pulse 94 08/13/24 08:47 BP 128/62 08/13/24 08:47 BMI result Body Mass Index 48.7 Assessment & Plan Assessment & Plan (1) Hypothyroid: Code(s): E03.9 - Hypothyroidism, unspecified Category: Medical Qualifiers: Hypothyroidism type: acquired Qualified Code(s): E03.9 - Hypot hyroidism, unspecified Plan: 34-year-old female with past medical history significant for Graves disease status post total thyroidectomy when she was 17 years old, now with postsurgical hypothyroidism who is coming today for follow up. She is currently on 200 mcg of levothyroxine daily. She has had previous issues with non adherence to the m edication resulting in consistently elevated TSH levels of greater than 100. Labs from December 2023 showed she was biochemically euthyroid on the 200 mcg of levothyroxine with a TSH of 1.16 and free T4 of 0.94, now with most recent labs from 08/12/2024 show her TSH is greater than 100 and free T4 is less than 0.42. Her weight based dosing currently comes to 200 mcg of levothyroxine daily. So she is on an appropriate weight based dose. She is promising me that she is taking her medication every day and she has a nurse who monitors medication administration from Saturday to Saturday and then her father who is also her LIAISON INSPECTION LABORATORY ASSISTANT on Saturday and Saturday. I discussed with her importance of compliance to medication as TSH of greater than 100 can result in myxedema coma and . Patient endorsed that she realizes the importance of taking medication regularly and she has been taking it regularly. Other factors that could potentially result in malabsorption of the medication include that recently she has been having rectal bleeding, potentially she could have IBD/colitis, she is pending workup with GI and is scheduled to undergo endoscopy and colonoscopy in November 2023. She has lost 20 lb over the past month when her medication was switched from Trulicity to Ozempic which she is taking for type 2 diabetes mellitus and weight management. Ozempic could theoretically cause some affect on absorption as well. Hence I will increase her dose for now. She has also been taking omeprazole at the same time as her levothyroxine so I have asked her to separate omeprazole at least by 4 hours in again stressed on the importance of taking levothyroxine on empty stomach 1st thing in the morning and wait at least an hour before she eats or drinks coffee. Plan: -increase levothyroxine to 225 mcg daily -repeat blood work in 6 weeks -follow up in 12 weeks (2) Elevated TSH: Code(s): R79.89 - Other specified abnormal findings of blood chemistry Category: Medical Plan: See above Plan I spent 30 minutes in reviewing the record, seeing the patient and documenting in the medical record. Orders: Orders Free T4 (Free Thyroxine) 12 E03.9 - Hypothyroidism, unspecified Thyroid Stimulating Hormone 12 E03.9 - Hypothyroidism, unspecified Thyroid Stimulating Hormone 6 Weeks E03.9 - Hypothyroidism, unspecified, R79.89 - Other specified abnormal findings of blood chemistry Free T4 (Free Thyroxine) 6 Weeks E03.9 - Hypothyroidism, unspecified, R79.89 - Other specified abnormal findings of blood chemistry Medications: New levothyroxine Take with 25 mcg capsule daily for a total 225 mcg daily 200 mcg PO DAILY 30 caps 8RF levothyroxine Take with 200 mcg capsule daily for a total 225 mcg daily 25 mcg PO DAILY 30 caps 8RF Discontinued levothyroxine Discontinued Reason: Order 200 mcg (2 x 100 mcg) PO DAILY 180 tabs 3RF Patient Instructions: Increase levothyroxine to 225 mcg daily (200 mcg pill plus 25 mcg pill) Please take this first thing in the morning on an empty stomach and wait at least an hour before eating or drinking tea or coffee Please take your omeprazole medication at least 4 hours away from the levothyroxine meaning can take this before lunch or dinner If you start having mental status changes or feeling like passing out , go to emergency room Do labs in 6 weeks Follow up in 12 weeks Coding Level of Care Code Est Pt Level 4 (92779) Diagnoses Acquired hypothyroidism E03.9 Hypothyroidism type: acquired Elevated TSH R79.89 Time Spent (min) 30
== END 2024-08-13 09:43 | disposition home or self-care (01) ==
PROVIDERS: PCP Nurse Practitioner Primary Care; Visit Provider Student in an Organized Health Care Education/Training Program
DX: E03.9 Hypothyroidism, unspecified (principal); R79.89 Other specified abnormal findings of blood chemistry
CPT/HCPCS: 99214

== ENCOUNTER → 2024-08-13 08:34 | Outpatient (BNVA) | payer MEDICAID, SELFPAY | PROVIDERS: PCP Nurse Practitioner Primary Care; Visit Provider Student in an Organized Health Care Education/Training Program | DX: E03.9 Hypothyroidism, unspecified (principal); R79.89 Other specified abnormal findings of blood chemistry | CPT/HCPCS: 99212 ==

== ENCOUNTER 2024-08-22 12:34 | Emergency (ER) | payer MEDICAID, SELFPAY ==
--- NOTE | ~2024-08-22 | XR_ITS ---
EXAMINATION: XR CHEST CLINICAL INFORMATION: cough COMPARISON: Chest radiograph from 12/22/2019 TECHNIQUE: 2 views of the chest were obtained. FINDINGS: Bilateral low lung volumes. No pneumothorax. Trachea is midline. Cardiac mediastinal silhouette is not enlarged. No large pleural effusion. Osseous structures are intact. Soft tissues are unremarkable. XR/XR chest 2V IMPRESSION: Bilateral low lung volumes. Electronically signed by: Mary Carmen Wheeler MD 08/22/2024 02:18 PM [facility]
[2024-08-22 12:46] VITALS: BP 110/82; PULSE 95; RESP 18; TEMP 36.8; O2SAT 99; BMI 44.8
--- NOTE | 2024-08-22 12:46 | ED.URI ---
HPI - URI/Sore Throat General Chief Complaint: Upper Respiratory Symptoms Stated Complaint: cough Time Seen by Provider: 08/22/24 12:52 Source: patient and old records reviewed Mode of arrival: ambulatory Limitations: no limitations History of Present Illness ED Provider: Chandler Cardozo PA-C HPI Narrative: 34-year-old female with a history of ADHD, depression, obesity, COLLETTE, hypothyroid, RA, anemia, asthma who presents to the ER for evaluation of 2 days of dry cough, nasal congestion, chills, shortness of breath. She reports symptoms started very mild and progressed, much worse last night with difficulty sleeping. She feels like she has chest congestion but is unable to get up any mucus. She reports symptoms are worse at night. She has history of asthma, does not have any albuterol inhaler at home. She is a nonsmoker. She reports subjective fever and chills. No known sick contacts. She denies any abdominal pain, nausea, vomiting, diarrhea. No chest pain MD elicited complaint: cough and nasal congestion Pertinent past history: asthma Onset (ago): day(s) Consistency: progressively worsening Severity: moderate Able to tolerate fluids by mouth: Yes Exacerbating factors: supine positioning Relieving factors: nothing Associated symptoms: fever, chills, headache, nasal congestion and shortness of breath Treatments prior to arrival: none Related Data Home Medications ?Medication ?Instructions ?Recorded ?Confirmed montelukast 10 mg tablet 10 mg PO BEDTIME 06/01/20 08/13/24 (Singulair) albuterol sulfate 90 mcg/actuation 2 puff inhalation Q4-6H PRN 07/31/22 08/13/24 aerosol inhaler (ProAir HFA) Shortness Of Breath Or Wheezing ascorbic acid (vitamin C) 250 mg 250 mg PO DAILY 07/31/22 08/13/24 tablet azelastine 205.5 mcg (0.15 %) 1 spray intranasal BID 07/31/22 08/13/24 nasal spray blood sugar diagnostic (FreeStyle 07/31/22 08/13/24 Lite Strips) blood-glucose meter (FreeStyle 07/31/22 08/13/24 Lite Meter kit) bupropion HCl 100 mg tablet,12 hr 100 mg PO BID 07/31/22 08/13/24 sustained-release (Wellbutrin SR) carbamide peroxide 6.5 % ear drops 5 p otic (ears) DAILY 07/31/22 08/13/24 (Debrox) dextrose 6 gram/15 mL oral gel 4 g PO Q15M 07/31/22 08/13/24 diclofenac sodium 1.5 % topical 1 pkg topical DAILY 07/31/22 08/13/24 drops-menthol 10 % roll-on combo pack diphenhydramine HCl 25 mg capsule 25 mg PO BEDTIME PRN Sleep 07/31/22 08/13/24 (Benadryl) docusate sodium 100 mg capsule 100 mg PO BID 07/31/22 08/13/24 (Colace) ferrous sulfate 325 mg (65 mg 325 mg PO DAILY 07/31/22 08/13/24 iron) tablet fluoxetine 40 mg capsule 80 mg PO DAILY 07/31/22 08/13/24 fluticasone propionate 110 1 puff inhalation BID 07/31/22 08/13/24 mcg/actuation HFA aerosol inhaler (Flovent HFA) fluticasone propionate 50 2 spray intranasal DAILY 07/31/22 08/13/24 mcg/actuation nasal spray,suspension (Flonase Allergy Relief) ipratropium bromide 21 mcg (0.03 2 spray intranasal BID-TID 07/31/22 08/13/24 %) nasal spray naproxen 500 mg tablet 500 mg PO BID 07/31/22 08/13/24 levonorgestrel 21 mcg/24 hr (up to intrauterine 10/12/22 08/13/24 8 years) 52 mg intrauterine device (Mirena) flash glucose sensor (FreeStyle #1 ea 07/22/24 08/13/24 Angi 2 Sensor kit) risperidone 2 mg tablet 2 mg PO BEDTIME 07/22/24 08/13/24 semaglutide 1 mg/dose (4 mg/3 mL) 1 mg subcut QWEEK 07/22/24 08/13/24 subcutaneous pen injector (Ozempic) trazodone 50 mg tablet 50 mg PO BEDTIME 07/22/24 08/13/24 Previous Rx's ?Medication ?Instructions ?Recorded cholecalciferol (vitamin D3) 50 50 mcg PO DAILY #30 caps 09/24/22 mcg (2,000 unit) capsule zinc acetate 50 mg (zinc) capsule 50 mg PO .tiw #14 caps 09/26/22 polyethylene glycol 3350 17 17 g PO DAILY #238 grams 06/23/24 gram/dose oral powder esomeprazole magnesium 40 mg 40 mg PO DAILY #30 caps 07/22/24 capsule,delayed release (Nexium) famotidine 20 mg tablet (Pepcid) 20 mg PO BEDTIME #30 tabs 07/22/24 hydrocortisone 2.5 % topical cream 1 appl NC BID-QID PRN Itching #30 07/22/24 with perineal applicator grams (Anusol-HC) methylcellulose (laxative) 500 mg 500 mg PO DAILY #30 tabs 07/22/24 tablet (Citrucel) sennosides 8.6 mg tablet (Natural 17.2 mg (2 x 8.6 mg) PO BEDTIME 07/22/24 Senna Laxative) constipation #60 tabs levothyroxine 200 mcg capsule 200 mcg PO DAILY #30 caps 08/13/24 levothyroxine 25 mcg capsule 25 mcg PO DAILY #30 caps 08/13/24 albuterol sulfate 90 mcg/actuation 1 inh inhalation QID PRN shortness 08/22/24 aerosol inhaler of breath or wheezing #6.7 grams azithromycin 250 mg tablet See Rx Instructions PO .COMPLEX #6 08/22/24 (Zithromax Z-Devang) tabs benzonatate 100 mg capsule 100 mg PO TID PRN cough #20 caps 08/22/24 prednisone 20 mg tablet 40 mg (2 x 20 mg) PO DAILY #10 tabs 08/22/24 Allergies Allergy/AdvReac Type Severity Reaction Status Date / Time Seasonal Allergies Allergy Sneezing Verified 08/22/24 12:48 Review of Systems Review of Systems: Yes all other systems are reviewed and are negative [facility] Past Medical History Medical History Reactive hypoglycemia Hypoglycemia Constipation Post-surgical hypothyroidism Elevated liver enzymes Varicose veins of bilateral lower extremities with other complications Obstructive sleep apnea Rheumatoid arthritis Depression ADHD Hypothyroid Morbid obesity Surgical History H/O prior ablation treatment (~2017) History of vein stripping (~2017) Hx of thyroidectomy Family History Family History Father No problems noted. Mother No problems noted. Brother No problems noted. Brother No problems noted. Brother No problems noted. Other No family history of cancer Social History Social History Household Members: Family Household Members Other:: parents Housing: House Are you a primary home care rn to a significant other at home: No Do you presently have visiting nurse or other home services: Yes Alcohol intake: never Patient Tobacco Use Status: Never used Tobacco Advance Directives: No Advance Directives Information Provided: No Do you have a plan to hurt others: No Plan service: No Current occupational status: disabled Physical Exam Vital Signs: Vital Signs: Last Vital Signs Temp 98.1 F 08/22/24 14:00 Pulse 102 H 08/22/24 14:00 Resp 16 08/22/24 14:00 BP 142/73 H 08/22/24 14:00 Pulse Ox 100 08/22/24 14:00 O2 Del Method Room Air 08/22/24 14:00 BMI result Body Mass Index 44.8 Appearance: Alert. Oriented X3. No acute distress. Head: normocephalic, atraumatic. Eyes: Pupils equal, round and reactive to light. ENT: Pharynx normal. No tonsillar swelling or exudate. Clear nasal discharge Neck: Normal inspection. Neck supple. CVS: Normal heart rate and rhythm. Pulses normal. Respiratory: No respiratory distress. Breath sounds diminished at the bilateral bases, speaking in complete sentences Skin: Skin warm and dry. Normal skin color. Normal skin turgor. No rashes. Extremities: No lower extremity edema. No joint swelling. Neuro/psych: Oriented X 3. Grossly normal, nonfocal Normal speech and cognition. Course Course Course Narrative: This is a Rapid Medical Exam performed in triage by Moon Figueroa PA-C. Full HPI, ROS and PE to be performed by primary ED provider. 34-year-old female with past medical history AUB, thrombocytopenia, ADHD, obesity, anema, hypothyroid, asthma, presenting to the ED c/o dry cough x2 days, worse at night, with assoc nausea, chills, sore throat, rhinorrhea & SOB. denies travel, CP PE: + congested, talking in complete sentences Plan: SARs, CXR, rapid strep Medical Decision Making Medical Decision Making MDM Narrative: 34-year-old female with history of asthma, depression, ADHD, obesity, COLLETTE, anemia who presents to the ER for evaluation of 2 days of cough, shortness of breath, nasal congestion, headache, body aches, subjective fever and chills. Her vital signs are stable on arrival. No respiratory distress. Her lungs are diminished at the bases, dry cough noted. Chest x-ray today shows very low lung volumes but no focal infiltrate. She tested negative for COVID, flu, RSV. Will treat for acute bronchitis. Encouraged follow up with her primary care doctor. Comfortable discharge home with outpatient follow-up. Other supportive care measures were discussed as well as return precautions. Stable for discharge home Differential Diagnosis Differential Diagnoses: The differential diagnosis associated with the presentation includes strep, covid, flu, rsv, other viral syndrome, bronchitis, pneumonia, asthma exacerbation Admission/Observation Consideration of admission/observation: Escalation of care including admission/observation considered Lab Data MDM Lab Attestation statement: I reviewed the patient's lab results. Negative viral swab, negative strep Labs: Lab Results 08/22/24 Range/Units 12:59 Influenza Type A (PCR) NEGATIVE (Negative) Influenza Type B (PCR) NEGATIVE (Negative) RSV RNA Qual (PCR) NEGATIVE (Negative) SARS-CoV-2 RNA (RT-PCR) NEGATIVE (Negative) S. pyogenes GrpA JENNIFER Negative (Negative) Independent Interpretation I performed an independent interpretation of an: Plain X-Ray Interpretation: Low lung volumes, no focal infiltrate or effusion Radiology Impression Discussion of test interpretation with radiology: I have reviewed the radiologist's reading. External Record Review External record reviewed: Outpatient record, Prior outpatient labs and Prior outpatient radiology Prescription Management I considered prescription management with: Antibiotic and Other (Antitussive, prednisone) Chronic Conditions Patient?s care impacted by: Other (Asthma, obesity) Critical Care Time Critical Care Time Critical Care Time: No Discharge Plan Discharge Clinical Impression: Bronchitis Patient Disposition: Home, Self-Care Instructions: Acute Bronchitis (ED) Additional Instructions: Your chest x-ray did not show any evidence of pneumonia. You tested negative for COVID, flu, RSV. Take the prescribed medications as directed for bronchitis. Rest and drink plenty of fluids. Follow-up with your doctor. If you develop new or worsening symptoms call 911 or come back to the ER for further evaluation. Prescriptions: New azithromycin [Zithromax Z-Devang] 250 mg tablet See Rx Instructions .ROUTE .COMPLEX Qty: 6 0RF Rx Instructions: take 500 mg today (day 1), then 250 mg for 4 days (days 2-5) prednisone 20 mg tablet 40 mg PO DAILY Qty: 10 0RF benzonatate 100 mg capsule 100 mg PO TID PRN (Reason: cough) Qty: 20 0RF albuterol sulfate 90 mcg/actuation HFA aerosol inhaler 1 inh inhalation QID PRN (Reason: shortness of breath or wheezing) Qty: 6.7 0RF No Action cholecalciferol (vitamin D3) 50 mcg (2,000 unit) capsule 50 mcg PO DAILY Qty: 30 5RF zinc acetate 50 mg (zinc) capsule 50 mg PO .tiw Qty: 14 2RF polyethylene glycol 3350 17 gram/dose powder 17 g PO DAILY Qty: 238 0RF montelukast [Singulair] 10 mg tablet 10 mg PO BEDTIME azelastine 205.5 mcg (0.15 %) spray,non-aerosol 1 spray intranasal BID Rx Instructions: administer into each nostril ipratropium bromide 21 mcg (0.03 %) spray,non-aerosol 2 spray intranasal BID-TID Rx Instructions: administer into each nostril docusate sodium [Colace] 100 mg capsule 100 mg PO BID fluoxetine 40 mg capsule 80 mg PO DAILY Debrox 6.5 % drops 5 drp otic (ears) DAILY diclofenac sodium-menthol 1.5-10 % combo pack 1 pkg topical DAILY fluticasone propionate [Flonase Allergy Relief] 50 mcg/actuation spray,suspension 2 spray intranasal DAILY Rx Instructions: administer into each nostril albuterol sulfate [ProAir HFA] 90 mcg/actuation HFA aerosol inhaler 2 puff inhalation Q4-6H PRN (Reason: Shortness Of Breath Or Wheezing) naproxen 500 mg tablet 500 mg PO BID bupropion HCl [Wellbutrin SR] 100 mg tablet sustained-release 12 hr 100 mg PO BID ferrous sulfate 325 mg (65 mg iron) tablet 325 mg PO DAILY ascorbic acid (vitamin C) 250 mg tablet 250 mg PO DAILY diphenhydramine HCl [Benadryl] 25 mg capsule 25 mg PO BEDTIME PRN (Reason: Sleep) (DME) blood-glucose meter [FreeCoworksyle Lite Meter] Kit See Rx Instructions .Route Rx Instructions: As directed (DME) FreeStyle Lite Strips Strip See Rx Instructions .Route Rx Instructions: As directed fluticasone propionate [Flovent HFA] 110 mcg/actuation HFA aerosol inhaler 1 puff inhalation BID dextrose 6 gram/15 mL gel 4 g PO Q15M Rx Instructions: until symptoms of low blood sugar are controlled Mirena 20 mcg/24 hours (8 yrs) 52 mg intrauterine device 1 device intrauterine ONCE Qty: 1 0RF Mirena 20 mcg/24 hours (8 yrs) 52 mg intrauterine device intrauterine Ozempic 1 mg/dose (4 mg/3 mL) pen injector 1 mg subcut QWEEK trazodone 50 mg tablet 50 mg PO BEDTIME (DME) FreeStyle Angi 2 Sensor Kit See Rx Instructions .ROUTE .MEDSUPPLY Qty: 1 Rx Instructions: As directed risperidone 2 mg tablet 2 mg PO BEDTIME hydrocortisone [Anusol-HC] 2.5 % cream with perineal applicator 1 appl NC BID-QID PRN (Reason: Itching) Qty: 30 3RF esomeprazole magnesium [Nexium] 40 mg capsule,delayed release(DR/EC) 40 mg PO DAILY Qty: 30 5RF Citrucel 500 mg tablet 500 mg PO DAILY Qty: 30 2RF famotidine [Pepcid] 20 mg tablet 20 mg PO BEDTIME Qty: 30 3RF sennosides [Natural Senna Laxative] 8.6 mg tablet 17.2 mg PO BEDTIME Qty: 60 2RF levothyroxine 200 mcg capsule 200 mcg PO DAILY Qty: 30 8RF Rx Instructions: Take with 25 mcg capsule daily for a total 225 mcg daily levothyroxine 25 mcg capsule 25 mcg PO DAILY Qty: 30 8RF Rx Instructions: Take with 200 mcg capsule daily for a total 225 mcg daily Referrals: Bernadine Ramos FIRE ASSISTANT [Primary Care Provider] - Print Language: Yakut
[2024-08-22 13:13] LABS: IDNOW Serial# 58CA691E; Strep A Nucleic Acid Negative (Negative)
[2024-08-22 13:42] LABS: Influenza A PCR NEGATIVE (Negative); Influenza B PCR NEGATIVE (Negative); Resp Syncy Virus RNA Qual PCR NEGATIVE (Negative); SARS COV2 PCR INHOUSE NEGATIVE (Negative)
[2024-08-22 14:00] VITALS: BP 142/73; PULSE 102; RESP 16; TEMP 36.7; O2SAT 100
[2024-08-22 14:38] VITALS: BP 142/73; PULSE 102; RESP 16; TEMP 36.7; O2SAT 100
== END 2024-08-22 14:41 | disposition home or self-care (01) ==
PROVIDERS: Physician Assistant; Emergency Provider Emergency Medicine Emergency Medical Services; PCP Nurse Practitioner Primary Care
DX: J40 Bronchitis, not specified as acute or chronic (principal); R05.9 Cough, unspecified; R06.02 Shortness of breath; Z03.818 Encounter for observation for suspected exposure to other biological agents ruled out; Z79.899 Other long term (current) drug therapy
CPT/HCPCS: 0241U; 71046; 87651; 99283

== ENCOUNTER 2024-10-15 14:28 | Emergency (ER) | payer MEDICAID, SELFPAY ==
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
[2024-10-15 15:11] VITALS: BP 126/79; PULSE 83; RESP 18; TEMP 36.7; O2SAT 98; BMI 41.9
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
[2024-10-15 22:06] VITALS: BP 126/79; PULSE 83; RESP 18; TEMP 36.7; O2SAT 98
== END 2024-10-15 22:06 | disposition home or self-care (01) ==
PROVIDERS: Emergency Provider Emergency Medicine; PCP Nurse Practitioner Primary Care
DX: S06.0X0A Concussion without loss of consciousness, initial encounter (principal); R51.9 Headache, unspecified; Y29.XXXA Contact with blunt object, undetermined intent, initial encounter; Y93.9 Activity, unspecified; Y92.810 Car as the place of occurrence of the external cause; Y99.8 Other external cause status
CPT/HCPCS: 70450; 99284

== ENCOUNTER → 2024-10-15 15:12 | Outpatient (BNV) | payer MEDICAID, SELFPAY | PROVIDERS: PCP Nurse Practitioner Primary Care; Visit Provider Radiology Diagnostic Radiology | DX: R51.9 Headache, unspecified (principal) | CPT/HCPCS: 70450 ==

== ENCOUNTER 2024-10-21 11:59 | Outpatient (AMB) | payer MEDICAID, SELFPAY ==
--- NOTE | 2024-10-21 12:06 | A.OFFVIS_ITS ---
Vital Signs 10/21/24 12:10 Height 5 ft 6 in Weight 265 lb BMI 42.8 BP 121/56 L Blood Pressure Location Lt brachial Position Sitting Pulse 93 Pulse Oximetry (%) 98 Oxygen Delivery Method Room Air Intake Visit Reasons: 3 month follow up Intake Note: Patient 3 month follow up for Constipation. Patient cc: diarrhea on and off, denies any other GI issues. Art Framing Manager Required: No Accompanied by: Self / Same As Patient Allergies Seasonal Allergies Allergy (Verified 10/21/24 12:06) Sneezing HPI HPI 3 month follow up: Details: LAST VISIT: Thrombocytopenia Constipation Transaminitis GERD (gastroesophageal reflux disease) Postprandial epigastric pain Postprandial abdominal bloating Plan We will book upper endoscopy and colonoscopy for patient. Message sent to surgical schedulers to book both. Patient will start taking Nexium in the morning and famotidine at bedtime. Avoid dietary triggers and late night snacking. Staying upright for minimum 3 hours after meals discussed with patient. Patient will take fiber supplement after breakfast and senna after dinner to help her evacuate her bowels better. Script for Proctosol send. Patient was also encouraged to do Sitz baths with Epsom salts. Follow-up in the office in 3 months to discuss going for colonoscopy. She is agreeable to this plan and verbalizes understanding of instructions. She was given the opportunity to ask questions and all questions answered. ? Thank you for allowing me to participate in her care Medications New esomeprazole magnesium (Nexium) 40 mg PO DAILY 30 caps 5RF K21.9 methylcellulose (laxative) (Citrucel) 500 mg PO DAILY 30 tabs 2RF K59.00 famotidine (Pepcid) 20 mg PO BEDTIME 30 tabs 3RF K21.9 hydrocortisone 2.5% (Anusol-HC) 1 appl [place] BID-QID PRN 30 grams 3RF Itching Refilled sennosides (Natural Senna Laxative) 17.2 mg (2 x 8.6 mg) PO BEDTIME 60 tabs 2RF constipation K59.00 Discontinued sucralfate (Carafate) Discontinued Reason: Doctor's Order 1 g PO BID 4 weeks 56 tabs 0RF TODAY'S VISIT Patient is here today for follow-up and to discuss going for colonoscopy and upper endoscopy. Patient reports that she is feeling little better, however she continues to have epigastric pain postprandially depending on what she eats. Patient denies dyspepsia, dysphagia or odynophagia. Denies any nausea or vomiting. She will be sent for upper endoscopy. Patient is taking Ozempic now, previously she was taking Trulicity. Patient is taking Ozempic every Saturday. Patient definitely reports to be feeling better than when she was taking Trulicity. Patient reports occasional postprandial diarrhea depending on what she eats. Patient is not eating enough fiber. Not taking fiber supplements. Patient reports that she never received them from pharmacy. She continues to have occasional bleed after bowel movements specially when she has diarrhea couple times in the row. [facility] Medical History Reactive hypoglycemia Hypoglycemia Constipation Post-surgical hypothyroidism Elevated liver enzymes Varicose veins of bilateral lower extremities with other complications Obstructive sleep apnea Rheumatoid arthritis Depression ADHD Hypothyroid Morbid obesity Surgical History H/O prior ablation treatment (~2017) History of vein stripping (~2018) Hx of thyroidectomy Family History Father No problems noted. Mother No problems noted. Brother No problems noted. Brother No problems noted. Brother No problems noted. Other No family history of cancer Social History Household Members: Family Household Members Other:: parents Housing: House Are you a primary home care consultant to a significant other at home: No Do you presently have visiting nurse or other home services: Yes Alcohol intake: never Patient Tobacco Use Status: Never used Tobacco service: No Current occupational status: disabled Female Reproductive History Menstrual Age of Menarche: 13 Review of Systems Const Denies weight gain and Denies weight loss ENT Reports no additional complaints, Denies dysphagia and Denies odynophagia Card Reports no additional complaints Resp Reports no additional complaints GI Reports abdominal pain (Epigastric), Denies belching, Denies melena, Reports bloating, Denies change in bowel habits, Reports constipation, Denies dysphagia, Denies excessive flatus, Denies dyspepsia, Reports heartburn, Denies diarrhea, Reports loose stools, Denies nausea, Denies odynophagia and Denies vomiting Reports no additional complaints Musc Reports no additional complaints Neuro Reports no additional complaints Psych Reports no additional complaints Endo Reports no additional complaints Physical Exam Vital Signs: Last Vital Signs Pulse 93 10/21/24 12:10 BP 121/56 L 10/21/24 12:10 Pulse Ox 98 10/21/24 12:10 Oxygen Delivery Method Room Air 10/21/24 12:10 BMI result Body Mass Index 42.8 Const General: healthy appearing and no acute distress Nutritional Appearance: obese Orientation/consciousness: patient oriented x3 Resp Effort & Inspection: normal respiratory effort, able to speak in complete sentences, no tracheal deviation and symmetric chest movement Auscultation: clear to auscultation bilaterally Cardio Rate: regular rate GI Inspection: Yes normal to inspection, No distended and Yes obesity Palpation (GI): Soft to palpation, not firm, nontender and No hepatosplenomegaly present Auscultation: normal bowel sounds General: Yes no CVA tenderness Back/Spine/Pelvis Back: no CVA tenderness Skin General skin exam: elasticity normal, turgor normal and dry skin Neuro General: patient oriented x3 Psych Appearance: grossly normal Mental Status: mental status grossly normal Assessment & Plan Assessment & Plan (1) Thrombocytopenia: Code(s): D69.6 - Thrombocytopenia, unspecified Category: Medical (2) Constipation: Code(s): K59.00 - Constipation, unspecified Category: Medical Qualifiers: Constipation type: chronic idiopathic constipation Qualified Code(s): K59.04 - Chronic idiopathic constipation (3) Transaminitis: Code(s): R74.01 - Elevation of levels of liver transaminase levels (4) GERD (gastroesophageal reflux disease): Code(s): K21.9 - Gastro-esophageal reflux disease without esophagitis Qualifiers: Esophagitis presence: esophagitis presence not specified Qualified Code(s): K21.9 - Gastro-esophageal reflux disease without esophagitis (5) Postprandial epigastric pain: Code(s): R10.13 - Epigastric pain (6) Postprandial abdominal bloating: Code(s): R14.0 - Abdominal distension (gaseous) (7) Rectal bleed: Code(s): K62.5 - Hemorrhage of anus and rectum Plan Patient lost 20 lb since changing to Ozempic in the past 4 months. Overall feeling better, she continues to have occasional epigastric pain depending on what she eats. Occasional diarrhea and some blood in her stools. Patient has a history of sleep apnea. No issues with anesthesia in the past. Patient will be sent to speak to surgical schedulers to book procedure. What to expect before during and after procedure discussed with patient. Patient will go for upper endoscopy as well. Stressed the importance of good bowel prep and clear liquid diet day before procedure. Patient will continue Citrucel to help with bulking her stools, however stop fiber 7 days before procedure. Patient will follow-up in our office after the procedure, sooner on as needed basis. She is agreeable to this plan and verbalizes understanding of instructions. She was given the o pportunity to ask questions and all questions answered. Thank you for allowing me to participate in her care Medications: New bisacodyl (Dulcolax (bisacodyl)) take 4 tabs at noon the day before your colonoscopy 20 mg (4 x 5 mg) PO ONCE 1 day 4 tabs 0RF Z12.11 - Encounter for screening for malignant neoplasm of colon polyethylene glycol 3350 (Miralax) As directed by gastroenterology department at [facility] 238 grams PO ONCE 238 grams 0RF Z12.11 - Encounter for screening for malignant neoplasm of colon Refilled methylcellulose (laxative) (Citrucel) 500 mg PO DAILY 90 tabs 2RF K59.00 - Constipation, unspecified Coding Level of Care Code Est Pt Level 4 (63233) Complex EM visit Add On G2211 Diagnoses Thrombocytopenia D69.6 Chronic idiopathic constipation K59.04 Constipation type: chronic idiopathic constipation Transaminitis R74.01 Gastroesophageal reflux disease, unspecified whether esophagitis present K21.9 Esophagitis presence: esophagitis presence not specified Postprandial epigastric pain R10.13 Postprandial abdominal bloating R14.0 Rectal bleed K62.5 Time Spent (min) 35 Comment 25 minutes spent with patient and additional 10 minutes spent reviewing her records
[2024-10-21 12:10] VITALS: BP 121/56; PULSE 93; O2SAT 98; BMI 42.8
--- OUTSIDE RECORDS SUMMARY | 2024-10-21 12:32 | XMS_ITS | Encounter Summary ---
Author Organization [employer] Address [address] [facility] 7t [place] [address] Care Team Providers Care Apparatus Repair Mechanic Name Role Phone Bernadine Ramos Primary Care Provider Reason for Visit * Reason Onset Date Comments Care Management 10/16/2024 [facility]- chart revi ew Encounter Details Date Type Department Care Team ([facility] st Contact Info) Description 10/16/2024 Telephone [facility] [address] [place] [address] Schuyler Anand RN [address] [place] [address] Care Management (CM- chart review) Social History Tobacco Use Types Packs/Day Years Used Date Smoking Tobacco: Never Passive Smoke Exposure: Never Smokeless Tobacco: Never Alcohol Use Standard Drinks/Week Comments Not Currently 0 (1 standard drink = 0.6 oz pur e alcohol) Depression Answer Date Recorded Patient Health Questionnaire-9 Score 8 06/23/2024 Patient Health Questionnaire-9 Score 8 06/23/2024 Last PHQ-9: Questionnaire Data Not on file 1 Housing Stability Answer Date Recorded What is your housing situation today? I do not have housing (Staying with others, in a hotel, in a nursing home, living outside on the street, on a beach, in a car, or in a park 06/23/[address] you li ve. Do you have problems with any of the following? None of the above 06/23/2024 Food Insecurity Answer Date Recorded Within the past 12 months, y ou worried that your food would run out before you got money to buy more: Never True 06/24/2023 Within the past 12 months,th e food you bought just didn't last and you didn't have enough money to get more: Never True Transportation Answer Date Recorded In the past 12 months, has l ack of transportation kept you from medical appts, meetings, work or from getting things needed for daily living? No 06/24/2023 Utilities Answer Date Recorded In the past 12 months, has t he electric, gas, oil or water company threatened to shut off services in your home? No 06/24/2023 Depression Answer Date Recorded Patient Health Questionnaire-2 Score 2 06/23/2024 Internet Access Answer Date Recorded Internet Access Q1 Yes 06/23/2024 Internet Access Q2 Not on file 06/23/2024 Comments No Sex and Gender Information Value Date Recorded Sex Assigned at Female 07/02/2022 10:28 AM EDT Legal Sex Female 10:28 AM EDT Gender Identity Female 07/02/2022 10:28 AM EDT Sexual Orientation Straight 07/02/2022 10 :28 AM EDT documented as of this encounter Miscellaneous Notes * Telephone Encounter - Schuyler Anand RN - 10/16/2024 8:19 AM EST KEENAN Anand RN, performed chart review, in anticipation of initial assessment with patient, as patient has stratified for [facility] through the ADT feed. History significant for acquired hypothyroidism, anxiety, ADHD, disorder of thyroid, thyroidectomy, elevated LFTs, iron deficiency anemia, COLLETTE, rheumatoid arthritis, varicose veins of lower extremity, autoimmune thyroiditis, menstrual bleeding problem, fatigue, and Type 2 DM. Specialists include [facility] (visit scheduled [place]/21/24), [facility], PT, Podiatry, [facility] Endo, and Nutrition. Patient receiving [facility] services from [facility]. ED visits within the last 12 months include [facility] 10/15/24 and [facility] 08/[facility]24. Last appointment in PCP office on 06/23/24. Next appointment scheduled for 11/03/24 at 2:15pm. documented in this encounter Plan of Treatment Upcoming Encounters Date Type Department Care Team (Late st Contact Info) Description 11/03/2024 2:15 PM EST Office Visit [facility] [address] [place] [address] Bernadine Ramos ANP [address] [place] [address] documented as of this encounter Visit Diagnoses Not on filedocumented in this encounter Additional Health Concerns Assessment Noted Time PHQ-9 Depression Total Score: 8 06/23/20 24 10:48 AM EDT documented as of this encounter Care Teams Apparatus Repair Mechanic Relationship Specialty Start Date End Date Bernadine Ramos ANP [address] [place] [address] PCP - General Family Medicine 02/16/20 [facility] 07/11/15 documented as of this encounter
--- OUTSIDE RECORDS SUMMARY | 2024-10-21 12:32 | XMS_ITS | Encounter Summary ---
Author Organization [facility] Address [address] [place] [address] Phone Care Team Providers Care Is Consultant Name Role Phone Austyn Lane MD Primary Care Provider [phone] Encounter Details Date Type Department Care Team (Late st Contact Info) Description 11/10/2009 Documentation [facility] Family Medicine [address] [place] [address] Family Medicine, Physician [address] [place], [place] [id number] Social History Tobacco Use Types Packs/Day Years Used Date Smoking Tobacco: Never Assessed Comments Unknown Sex and Gender Information Value Date Recorded Sex Assigned at Not on file Legal Sex Female 4:51 PM EDT Gender Identity Not on file Sexual Orientation Not on file documented as of this encounter Plan of Treatment Not on file documented as of this encounter Visit Diagnoses Not on filedocumented in this encounter Care Teams Is Consultant Relationship Specialty Start Date End Date Austyn Lane MD [address] [place] [address] TATE Webb [address] PCP - General 04/12/17 11/14/22 documented as of this encounter
--- OUTSIDE RECORDS SUMMARY | 2024-10-21 12:32 | XMS_ITS | Clinical Summary ---
Author Organization [facility] Address [address] [place] [address] Phone Care Team Providers Care Hot Dip Plater Name Role Phone Unavailable Primary Care Provider Unavailabl e Immunizations Immunization Administration Dates Next Due DTP 04/11/1994, 3,02/13/1993,10/02 DTaP 5 10/08/1996 H1N1 06/21/2009 HPV, Quadrivalent 05/18/2008,01/14/2008,11/12/19 08 Hep A, ped/adol 03/01/2011 Hep B, ped/adol 05/18/1993,02/13/1993,1992 Hib (PRP-T) 10/24/1993, 3,02/13/1993,10/02 IPV 10/08/1996, 4,02/13/1993,10/02 Influenza Split 05/27/2013, 2,09/19/2011,07/24 Influenza, injectable, trivalent 009,06/11/2008,06/18/2007,08/14,08/07/2005,09/22/2004 MMR 10/08/1996,10/24/1993 Meningococcal Conj (Menactra) MCV4P 09/17/2006 Td (adult) (MBL), 2 Lf tetan us toxoid, PF, adsorbed 08/16/2004 Tdap 02/20/2010 Unknown Vaccine 02/13/2005 Family History Relation Name Status Comments Father Alive Father (adoptiv e): Alive and well Mother Alive Mother(adoptive ): Alive and well Social History Tobacco Use Types Packs/Day Years Used Date Smoking Tobacco: Never Comments:Never smoker Comments Unknown Sex and Gender Information Value Date Recorded Sex Assigned at Not on file Legal Sex Female 4:51 PM EDT Gender Identity Not on file Sexual Orientation Not on file Last Filed Vital Signs Vital Sign Reading Time Taken Comments Blood Pressure 110/75 05/27/2013 12:00 AM EDT Pulse - - Temperature 36.5 ??C (97.7 ??F) 05/27/2013 12:00 AM E DT Respiratory Rate - - Oxygen Saturation - - Inhaled Oxygen Concentration - - Weight 93.9 kg (207 lb) 05/27/2013 12:00 AM EDT Height 162.1 cm (5' 3.8 ) 05/27/2013 12:00 AM ED T Body Mass Index 35.75 05/27/2013 12:00 AM EDT Plan of Treatment Health Maintenance Due Date Last Done Comments Varicella Vaccines (1 of 2 - 13+ 2-dose series) 2005 Hepatitis A Vaccines (2 of 2 - 2-dose series) 08/31/2011 03/01/2011 DTaP,Tdap,and Td Vaccines (7 - Td or Tdap) 02/21/2020 02/20/2010, 08/16/2004, 10/08/1996, Additional history exists Influenza Vaccines (#1) 2024 05/27/20 13, 05/07/2012, 09/19/2011, Additional history exists COVID-19 Vaccine ( season) 2024 Hepatitis B Vaccines Completed 05/18/1993, 02/13/1993, 1992 HIB Vaccines Completed 10/24/1993, 05/03, 02/13/1993, Additional history exists IPV Vaccines Completed 10/08/1996, 04/02, 02/13/1993, Additional history exists MMR Vaccines Completed 10/08/1996, 10/24/1993 Meningococcal Vaccine Aged Out 09/17/2006 No lo ani eligible based on patient's age to complete this topic HPV Vaccines Completed 05/18/2008, 12/31, 11/12/2007 Men B Vaccine Aged Out No longer elig ible based on patient's age to complete this topic Pneumococcal Vaccine Aged Out No long er eligible based on patient's age to complete this topic Procedures * Due to [place] state law, this organization might not be sharing sensitive test results. Procedure Name Priority Date/Time Associated Diagnosis Comments CHLAMYDIA AND GONORRHEA, AMPLIFIED Routine 08/08/2010 1:32 PM EST from Last 3 Months or Most Recently Relevant to Health Maintenance Results * Due to [place] state law, this organization might not be sharing sensitive test results. * Chlamydia and Gonorrhoea, Amplified (08/08/2010 1:32 PM EST) Pathologist [facility] URINE CHLAMYDIA AMP PROBE NEGATIVE [facility] Comment: NO CHLAMYDIA TRACHOMATIS RNA DETECTED IN THIS PATIENT'S SAMPLE. ? (REFERENCE RANGE/NORMAL VALUE: NOT DETECTED) ? URINE GC AMP PROBE NEGATIVE [facility] Comment: NO NEISSERIA GONORRHOEAE RNA DETECTED IN THIS PATIENT'S SAMPLE. ? (REFERENCE RANGE/NORMAL VALUE: NOT DETECTED) ? NOTE: THIS TEST USES MEDICAL RECORDS ANALYST MEDIATED AMPLIFICATION METHOD TO DETECT rRNA FROM C.TRACHOMATIS AND N.GONORRHOEAE. A NEGATIVE RESULT DOES NOT PRECLUDE INFECTION WITH C.TRACHOMATIS OR N.GONORRHOEAE BECAUSE RESULTS ARE DEPENDENT ON ADEQUATE SPECIMEN COLLECTION, ABSENCE OF INHIBITORS, AND SUFFICIENT rRNA TO BE DETECTED. THE APTIMA COMBO2 ASSAY IS NOT INTENDED FOR THE EVALUATION OF SUSPECTED SEXUAL ABUSE OR FOR OTHER MEDICO LEGAL INDICATIONS. IS TRUE FOR ALL NON CULTURE METHODS, A POSITIVE SPECIMEN OBTAINED FROM A PATIENT AFTER THERAPEUTIC TREATMENT CANNOT BE INTERPRETED INDICATING THE PRESENCE OF VIABLE C.TRACHOMATIS OR N.GONORRHOEAE. THERAPEUTIC FAILURE OR SUCCESS CANNOT BE DETERMINED WITH THE APTIMA COMBO2 ASSAY SINCE NUCLEIC ACID MAY PERSIST FOLLOWING APPROPRIATE ANTIMICROBIAL THERAPY. A NEGATIVE URINE RESULT FOR A PATIENT WHO IS CLINICALLY SUSPECTED OF HAVING A CHLAMYDIAL OR GONOCOCCAL INFECTION DOES NOT RULE OUT THE PRESENCE OF C.TRACHOMATIS OR N.GONORRHOEAE IN THE UROGENITAL TRACT. TESTING OF AN ENDOCERVICAL(FEMALE) OR URETHRAL(MALE) SPECIMEN IS RECOMMENDED IF THERE IS HIGH CLINICAL SUSPICION OF INFECTION. PRESERVCYT LIQUID PAP AND URINE SAMPLING ARE NOT DESIGNED TO REPLACE CERVICAL EXAMS AND ENDOCERVICAL SAMPLES FOR DIAGNOSIS OF FEMALE UROGENITAL INFECTIONS. PATIENTS MAY HAVE CERVICITIS, URETHRITIS, URINARY TRACT INFECTIONS, OR VAGINAL INFECTIONS DUE TO OTHER CAUSES OR CONCURRENT INFECTIONS WITH OTHER AGENTS. 08/08/2010 1:32 PM EST Narrative [facility] - 08/08/2010 1:32 PM EST URINE CHLAMYDIA GC AMP PROBE us Veronica Lux NP LAB MICROBIOLOGY - GENERAL OR DERABLES Final Result [facility] [address] [place] [address], [place] from Last 3 Months or Most Recently Relevant to Health Maintenance
--- OUTSIDE RECORDS SUMMARY | 2024-10-21 12:32 | XMS_ITS | Encounter Summary ---
Author Organization [employer] Address [address] [facility] 7t [place] [address] Care Team Providers Care Ux Engineer Name Role Phone Bernadine Ramos Primary Care Provider [phone] Reason for Visit * Reason Comments Med Refill Encounter Details Date Type Department Care Team (Late st Contact Info) Description 10/14/2024 Refill [facility] MEDICINE [address] [place] [address] Bernadine Ramos ANP [address] [place] [address] Iron deficiency anemia, unspecified iron deficiency anemia type Social History Tobacco Use Types Packs/Day Years [...] with others, in a hotel, in a detention, living outside on the street, on a [...] AM EDT documented as of this encounter Plan of Treatment Upcoming Encounters Date Type Department Care Team (Late st Contact Info) Description 11/03/2024 2:15 PM EST Office Visit [facility] MEDICINE [address] [place] [address] Bernadine Ramos ANP [address] [place] [address] documented as of this encounter Visit Diagnoses Diagnosis Iron deficiency anemia, unspecified iron deficiency anemia type documented in this encounter Additional Health Concerns Assessment Noted Time PHQ-9 Depression Total Score: 8 06/23/20 24 10:48 AM EDT documented as of this encounter Care Teams Ux Engineer Relationship Specialty Start Date End Date Bernadine Ramos ANP [address] [place] [address] PCP - General Family Medicine 02/16/20 [facility] 07/11/15 documented as of this encounter
--- OUTSIDE RECORDS SUMMARY | 2024-10-21 12:32 | XMS_ITS | Encounter Summary ---
Author Organization [employer] Address [address] [facility] 7t [place] [address] Care Team Providers Care Graphic Design Teacher Name Role Phone Bernadine Ramos Primary Care Provider [phone] Reason for Visit * Reason Onset Date Comments FYI 05/21/2023 Encounter Details Date Type Department Care Team ([facility] st Contact Info) Description 05/21/2023 Telephone [facility] MEDICINE [address] [place] [address] Bernadine Ramos ANP [address] [place] [address] FYI Social History Tobacco Use Types Packs/Day Years Used Date Smoking Tobacco: Never Smokeless Tobacco: Never Alcohol Use Standard [...] with others, in a hotel, in a [facility], living outside on the street, on a [...] Access Q2 Not on file 06/23/2024 Comments Unknown Sex and Gender Information Value Date Recorded Sex Assigned at Female 07/02/2022 10:28 AM EDT Legal Sex Female 10:28 AM EDT Gender Identity Female 07/02/2022 10:28 AM EDT Sexual Orientation Straight 07/02/2022 10 :28 AM EDT documented as of this encounter Miscellaneous Notes * Telephone Encounter - Edmundo Blake - 05/21/2023 4:10 PM EDT Tc from [facility] would like to inform PCP that they will renew services on 05/26/23 5 x a day for 60days, also stated they will be faxing orders for PCP to sign. If any questions please contact at [phone] documented in this encounter Plan of Treatment Upcoming Encounters Date Type Department Care Team (Late st Contact Info) Description 11/03/2024 2:15 PM EST Office Visit [facility] MEDICINE [address] [place] [address] Bernadine Ramos ANP [address] [place] [address] documented as of this encounter Visit Diagnoses Not on filedocumented in this encounter Additional Health Concerns Assessment Noted Time PHQ-9 Depression Total Score: 0 03/19/20 23 2:00 PM EDT documented as of this encounter Care Teams Graphic Design Teacher Relationship Specialty Start Date End Date Bernadine Ramos ANP [address] [place] [address] PCP - General Family Medicine 02/16/20 [facility] 07/11/15 documented as of this encounter
--- OUTSIDE RECORDS SUMMARY | 2024-10-21 12:32 | XMS_ITS | Encounter Summary ---
Author Organization [facility] Address [address] [place] [address] Phone Care Team Providers Care Television Engineer Name Role Phone Austyn Lane MD Primary Care Provider [phone] Encounter Details Date Type Department Care Team (Late st Contact Info) Description 04/06/2013 Documentation [facility] [place] [place] Family Medicine [address] [place] [address] Family Medicine, Physician [address] [place], [place] [phone] Social History Tobacco Use Types Packs/Day Years [...] on filedocumented in this encounter Care Teams Television Engineer Relationship Specialty Start Date End Date Austyn Lane MD [address] [place] [address] TATE Webb [address] PCP - General 04/12/17 11/14/22 documented as of this encounter
--- OUTSIDE RECORDS SUMMARY | 2024-10-21 12:32 | XMS_ITS | Encounter Summary ---
Author Organization [facility] Address [address] [place] [address] Phone Care Team Providers Care Community Educator Name Role Phone Austyn Lane MD Primary Care Provider [phone] Encounter Details Date Type Department Care Team (Late st Contact Info) Description 12/01/2012 Documentation [facility] [place] [address] [place] [address] Family Medicine, Physician [address] [place], [place] [phone] Social History Tobacco Use Types Packs/Day Years [...] on filedocumented in this encounter Care Teams Community Educator Relationship Specialty Start Date End Date Austyn Lane MD [address] [place] [address] TATE Webb [address] PCP - General 04/12/17 11/14/22 documented as of this encounter
--- OUTSIDE RECORDS SUMMARY | 2024-10-21 12:32 | XMS_ITS | Encounter Summary ---
Author Organization [facility] Address [address] [place] [address] Phone Care Team Providers Care Air Route Traffic Controller Name Role Phone Austyn Lane MD Primary Care Provider [phone] Encounter Details Date Type Department Care Team (Late st Contact Info) Description 09/29/2012 Documentation [facility] Family Medicine [address] [place] [address] Family Medicine, Physician [address] [place], [place] [phone] Social History Tobacco Use Types Packs/Day Years [...] on filedocumented in this encounter Care Teams Air Route Traffic Controller Relationship Specialty Start Date End Date Austyn Lane MD [address] [place] [address] TATE Webb [address] PCP - General 04/12/17 11/14/22 documented as of this encounter
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
--- OUTSIDE RECORDS SUMMARY | 2024-10-21 12:32 | XMS_ITS | Encounter Summary ---
Author Organization [employer] Address [address] [facility] 7t [place] [address] Care Team Providers Care Rn Clinical Documentation Name Role Phone Bernadine Ramos Primary Care Provider [phone] Reason for Visit * Reason Comments Med Refill Encounter Details Date Type Department Care Team (Late st Contact Info) Description 09/19/2024 Refill [facility] MEDICINE [address] [place] [address] Bernadine Ramos ANP [address] [place] [address] Heartburn Social History Tobacco Use Types Packs/Day Years [...] Description 11/03/2024 2:15 PM EST Office Visit [facility] MEDICINE [address] [place] [address] Bernadine Ramos ANP [address] [place] [address] documented as of this encounter Visit Diagnoses Diagnosis Heartburn documented in this encounter Additional Health Concerns Assessment Noted Time PHQ-9 Depression Total Score: 8 06/23/20 24 10:48 AM EDT documented as of this encounter Care Teams Rn Clinical Documentation Relationship Specialty Start Date End Date Bernadine Ramos ANP [address] [place] [address] PCP - General Family Medicine 02/16/20 [facility] 07/11/15 documented as of this encounter
--- OUTSIDE RECORDS SUMMARY | 2024-10-21 12:32 | XMS_ITS | Encounter Summary ---
Author Organization [employer] Address [address] [facility] 7t [place] [address] Care Team Providers Care Combat Systems Operator Name Role Phone Bernadine Ramos Primary Care Provider [phone] Reason for Visit * Reason Onset Date Comments FYI 03/22/2023 Encounter Details Date Type Department Care Team ([facility] st Contact Info) Description 03/22/2023 Telephone [facility] MEDICINE [address] [place] [address] Bernadine Ramos ANP [address] [place] [address] FYI Social History Tobacco Use Types Packs/Day Years Used Date Smoking Tobacco: Never Smokeless Tobacco: Never Alcohol Use Standard Drinks/Week Comments Not Currently 0 (1 standard drink = 0.6 oz pur e alcohol) Depression Answer Date Recorded Patient Health Questionnaire-9 Score 0 03/19/2023 Depression Answer Date Recorded Patient Health Questionnaire-2 Score 0 03/19/2023 Comments Unknown Sex and Gender Information Value Date Recorded Sex Assigned at Female 07/02/2022 10:28 AM EDT Legal Sex Female 10:28 AM EDT Gender Identity Female 07/02/2022 10:28 AM EDT Sexual Orientation Straight 07/02/2022 10 :28 AM EDT documented as of this encounter Miscellaneous Notes * Telephone Encounter - Luz Anand - 03/22/2023 2:39 PM EDT Tc from [place] with [facility] stating will be renewing pt care of plan on March 27 will be seeing pt 5 x a week for medication. documented in this encounter Plan of Treatment Upcoming Encounters Date Type Department Care Team (Late st Contact Info) Description 11/03/2024 2:15 PM EST Office Visit [facility] [address] [place] [address] Bernadine Ramos ANP [address] [place] [address] documented as of this encounter Visit Diagnoses Not on filedocumented in this encounter Additional Health Concerns Assessment Noted Time PHQ-9 Depression Total Score: 0 03/19/20 23 2:00 PM EDT documented as of this encounter Care Teams Combat Systems Operator Relationship Specialty Start Date End Date Bernadine Ramos ANP [address] [place] [address] PCP - General Family Medicine 02/16/20 [facility] 07/11/15 documented as of this encounter
--- OUTSIDE RECORDS SUMMARY | 2024-10-21 12:32 | XMS_ITS | Encounter Summary ---
Author Organization [employer] Address [address] [place] [address] 7t [place] [address] Care Team Providers Care Tipple Greaser Name Role Phone Bernadine Ramos Primary Care Provider [phone] Encounter Details Date Type Department Care Team (Late st Contact Info) Description 05/29/2023 Orders Only [facility] MEDICINE [address] [place] [address] [phone] Provider, MD Estephanie Social History Tobacco Use Types Packs/Day Years [...] Description 11/03/2024 2:15 PM EST Office Visit [facility] MEDICINE [address] [place] [address] [phone] Bernadine Ramos ANP [address] [place], [place] [phone] documented as of this encounter Procedures Procedure Name Priority Date/Time Associated Diagnosis Comments HM PAP/HPV Routine 02/07/2021 documented in this encounter Results * Hm Pap Smear (02/07/2021) us Historical Provider HEALTH MAINTENANCE Final Result documented in this encounter Visit Diagnoses Not on filedocumented in this encounter Additional Health Concerns Assessment Noted Time PHQ-9 Depression Total Score: 0 03/19/20 23 2:00 PM EDT documented as of this encounter Care Teams Tipple Greaser Relationship Specialty Start Date End Date Bernadine Ramos ANP [address] [place] [address] PCP - General Family Medicine 02/16/20 [facility] 07/11/15 documented as of this encounter
--- OUTSIDE RECORDS SUMMARY | 2024-10-21 12:32 | XMS_ITS | Encounter Summary ---
Author Organization [facility] Address [address] [place] [address] Phone Care Team Providers Care Fun House Attendant Name Role Phone Austyn Lane MD Primary Care Provider [phone] Encounter Details Date Type Department Care Team (Late st Contact Info) Description 04/18/2017 Conversion Encounter [facility] [address] [facility] [place] [address] Social History Tobacco Use Types Packs/Day Years [...] on filedocumented in this encounter Care Teams Fun House Attendant Relationship Specialty Start Date End Date Austyn Lane MD [address] [place] [address] PCP - General 04/12/17 11/14/22 documented as of this encounter
--- OUTSIDE RECORDS SUMMARY | 2024-10-21 12:32 | XMS_ITS | Encounter Summary ---
Author Organization [employer] Address [address] [facility] 7t [place] [address] Care Team Providers Care Coremaker Machine Name Role Phone Bernadine Ramos Primary Care Provider [phone] Reason for Visit * Reason Onset Date Comments Nurse Triage 10/20/2024 Encounter Details Date Type Department Care Team ([facility] st Contact Info) Description 10/20/2024 Telephone [facility] [address] [place] [address] Bernadine Ramos ANP [address] [place] [address] Nurse Triage Social History Tobacco Use Types Packs/Day Years [...] encounter Miscellaneous Notes * Telephone Encounter - Oriana Matt RN - 10/20/2024 3:48 PM EST Images from the original note were not included. Call returned to Dolores Baltazar to triage below. Continues to have daily headaches following head injury. Good effect with OTC motrin and Tylenol . No vomiting or blurred vision reported. Pt looking for ER follow up appt. Pt advise to seek WIC as no appts on teams. Reviewed WIC operating hours and that wait times vary. Reviewed home care advise, ER precautions and reasons to call back. Protocol Used: Concussion (mTBI) Less Than 14 Days Ago Follow-Up Call (Adult) Protocol-Based Disposition: See in Office or Video Visit within 3 Days Video visit offer not recorded Positive Triage Question: * Concussion symptoms staying SAME (not worse or better) and present > 3 days * All higher-acuity triage questions were negative Care Advice Discussed: * Reassurance and Education - Symptoms Staying the Same * Concussion - Diagnosis * Concussion - Symptoms * Concussion - Expected Course * Concussion - When to Seek Medical Attention * Reasons To Call Back - You have more questions Dolores Montano [facility] Clinical [facility] (supporting ITZEL Floyd)1 hour ago (2:13 PM) Call this number [phone] instead of the [phone] Oscar Luna routed conversation to [facility] Triage Nurse2 hours ago (1:26 PM) Dolores Montano [facility] Clinical Support (supporting ITZEL Floyd)3 hours ago (11:52AM) I have an appointment for november 03 but i recently went to the hospital. I hit my head on the car door then I started getting headaches went to the ER. And they said I have a mild concussion I been on Tylenol for every 8 hours and I still get headaches. I was wondering if I can get something early.And asking for someone I know is Bernadine taking new? patients documented in this encounter Plan of Treatment Upcoming Encounters Date Type Department Care Team (Late st Contact Info) Description 11/03/2024 2:15 PM EST Office Visit [facility] [address] [place] [address] Bernadine Ramos ANP [address] [place] [address] documented as of this encounter Visit Diagnoses Not on filedocumented in this encounter Additional Health Concerns Assessment Noted Time PHQ-9 Depression Total Score: 8 06/23/20 24 10:48 AM EDT documented as of this encounter Care Teams Coremaker Machine Relationship Specialty Start Date End Date Bernadine Ramos ANP [address] [place] [address] PCP - General Family Medicine 02/16/20 [facility] 07/11/15 documented as of this encounter
--- OUTSIDE RECORDS SUMMARY | 2024-10-21 12:32 | XMS_ITS | Encounter Summary ---
Author Organization [employer] Address [address] [place] [address] 7t [place] [address] Care Team Providers Care Rail Express Clerk Name Role Phone Bernadine Ramos Primary Care Provider [phone] Reason for Visit * Reason Comments Med Refill Encounter Details Date Type Department Care Team (Late st Contact Info) Description 03/21/2023 Refill [facility] [address] [place] [address] Bernadine Ramos ANP [address] [place] [address] Heartburn Social History Tobacco Use Types Packs/Day [...] Description 11/03/2024 2:15 PM EST Office Visit [facility] [address] [place] [address] Bernadine Ramos ANP [address] [place], [place] [phone] documented as of this encounter Visit Diagnoses Diagnosis Heartburn documented in this encounter Additional Health Concerns Assessment Noted Time PHQ-9 Depression Total Score: 0 03/19/20 23 2:00 PM EDT documented as of this encounter Care Teams Rail Express Clerk Relationship Specialty Start Date End Date Bernadine Ramos ANP [address] [place] [address] PCP - General Family Medicine 02/16/20 [facility] 07/11/15 documented as of this encounter
--- OUTSIDE RECORDS SUMMARY | 2024-10-21 12:32 | XMS_ITS | Encounter Summary ---
Author Organization [facility] Address [address] [place] [address] Phone Care Team Providers Care Lion Trainer Name Role Phone Austyn Lane MD Primary Care Provider [phone] Encounter Details Date Type Department Care Team (Late st Contact Info) Description 09/26/2012 Documentation [facility] [address] [place] [address] Family Medicine, Physician [address] [place], [place] [phone] Social History Tobacco Use Types Packs/Day Years [...] on filedocumented in this encounter Care Teams Lion Trainer Relationship Specialty Start Date End Date Austyn Lane MD [address] [place] [address] T[place] [address] PCP - General 04/12/17 11/14/22 documented as of this encounter
--- OUTSIDE RECORDS SUMMARY | 2024-10-21 12:32 | XMS_ITS | Encounter Summary ---
Author Organization [facility] Address [address] [place] [address] Phone Care Team Providers Care Nut Blanker Operator Name Role Phone Austyn Lane MD Primary Care Provider [phone] Encounter Details Date Type Department Care Team (Late st Contact Info) Description 12/21/2011 Documentation [facility] [address] [place] [address] Family Medicine, Physician [address] [place], [place] [phone] Social History Tobacco Use Types Packs/Day Years [...] on filedocumented in this encounter Care Teams Nut Blanker Operator Relationship Specialty Start Date End Date Austyn Lane MD [address] [place] [address] T[place] [address] PCP - General 04/12/17 11/14/22 documented as of this encounter
--- OUTSIDE RECORDS SUMMARY | 2024-10-21 12:32 | XMS_ITS | Encounter Summary ---
Author Organization [employer] Address [address] [facility] 7t [place] [address] Care Team Providers Care Pest Control Specialist Name Role Phone Bernadine Ramos Primary Care Provider [phone] Reason for Visit * Reason Comments Care Coordination CM/CHW outreach Encounter Details Date Type Department Care Team (Latest Contact Info) Description 10/16/2024 Patient Outreach [facility] MEDICINE [address] [place] [address] Bernadine Ramos ANP [address] [place] [address] Care Coordination (CM/CHW outreach) Social History Tobacco Use Types Packs/Day Years [...] with others, in a hotel, in a group home, living outside on the street, on [...] AM EDT documented as of this encounter Progress Notes * aJcqueline Singh - 10/16/2024 12:37 PM EST CHW Jacqueline Singh, placed outbound call to patient introducing herself from [facility] CM Department, in regard to offering services. Patient's name and was confirmed. Patient agrees to participate in program. Appt. for initial assessment scheduled for 10/29/24 @ 1PM tele with KEENAN Anand RN. CHW reinforced direct contact information or CM for any additional questions or concerns and extended clinic hours on Mondays and Wednesdays, and Walk-InUrgent Care Located in [facility] of [facility]. Patient provided with after-hours line for [facility], , which offer nighttime triage service and option to transfer to ultrasonic hand solderer provider if needed. Patient verbalizes understanding, and able to repeat back to script writer. documented in this encounter Plan of Treatment Upcoming Encounters Date Type Department Care Team ([facility] st Contact Info) Description 11/03/2024 2:15 PM EST Office Visit [facility] MEDICINE [address] [place] [address] Bernadine Ramos ANP [address] [place] [address] documented as of this encounter Visit Diagnoses Not on filedocumented in this encounter Additional Health Concerns Assessment Noted Time PHQ-9 Depression Total Score: 8 06/23/20 24 10:48 AM EDT documented as of this encounter Care Teams Pest Control Specialist Relationship Specialty Start Date End Date Bernadine Ramos ANP [address] [place] [address] PCP - General Family Medicine 02/16/20 [facility] 07/11/15 documented as of this encounter
--- OUTSIDE RECORDS SUMMARY | 2024-10-21 12:33 | XMS_ITS | Encounter Summary ---
Author Organization [employer] Address [address] [facility] 7t [place] [address] Care Team Providers Care Spindle Tester Name Role Phone Berndaine Ramso Primary Care Provider [phone] Reason for Visit * Reason Onset Date Comments Durable Medical Equipment 09/16/2024 Shower chair Encounter Details Date Type Department Care Team ([facility] st Contact Info) Description 09/16/2024 Telephone [facility] MEDICINE [address] [place] [address] Bernadine Ramos ANP [address] [place] [address] Durable Medical Equipment (Shower chair) Social History Tobacco Use Types Packs/Day Years [...] with others, in a hotel, in a senior care, living outside on the street, on a [...] encounter Miscellaneous Notes * Telephone Encounter - Laura Marcial RN - 09/24/2024 9:20 AM EST Signed DME request for shower chair received, faxed to Maxine. Confirmation received. * Telephone Encounter - Yoly Scott RN - 09/17/2024 2:02 PM EST Discussed with PCP who approved DME request. White script generated. Placed DME packet on PCP's desk. Pending signature. * Telephone Encounter - Atiya Corado - 09/16/2024 10:51 AM EST Pt requesting shower chair. Please advise. If agree with DME request, please provide notes and Dx to support the need and send message to [place] to generate Rx. Thank you documented in this encounter Plan of Treatment Upcoming Encounters Date Type Department Care Team (Late st Contact Info) Description 11/03/2024 2:15 PM EST Office Visit [facility] MEDICINE [address] [place] [address] Bernadine Ramos ANP [address] [place] [address] documented as of this encounter Visit Diagnoses Not on filedocumented in this encounter Additional Health Concerns Assessment Noted Time PHQ-9 Depression Total Score: 8 06/23/20 24 10:48 AM EDT documented as of this encounter Care Teams Spindle Tester Relationship Specialty Start Date End Date Bernadine Ramos ANP [address] [place] [address] PCP - General Family Medicine 02/16/20 [facility] 07/11/15 documented as of this encounter
--- OUTSIDE RECORDS SUMMARY | 2024-10-21 12:33 | XMS_ITS | Clinical Summary ---
Author Organization [employer] Address [address] [facility] [address] [place] [address] Care Team Providers Care Crane Ladle Person Name Role Phone Vazquez Louis Primary Care Provider [phone] Allergies No known active allergies Medications albuterol 108 (90 Base) MCG/ACT inhaler inhale 2 puff by inhalation route every 4 hours as needed 05/31/20 21 Active buPROPion SR (Wellbutrin SR) 100 MG 12 hr tablet Take 1 tablet by mouth every 12 (twelve) hours. 09/14/19 22 Active Diclofenac Sodium 1 % gel Apply topically every 8 (eight) hours. 03/02/20 21 Active glucagon 1 MG injection inject 1 mg by subcutaneous route once if unable to take sugar by mouth or if unconscious, repeat in 15min if inadequate response 04/23/20 22 Active glucose-vitamin C 4-6 GM-MG oral gel take 4 tablets as needed for blood sugars <60 and/or symptoms of hypoglycemia, then recheck blood sugar 15 minutes later 03/14/20 22 Active hydrocortisone (Anusol-HC) 2.5 % rectal cream apply by topical route 4 times every day to the affected area(s) 05/26/20 20 Active levothyroxine (Synthroid, Levoxyl) 200 MCG tablet Take 1 tablet by mouth at bed time. Active levothyroxine (Synthroid, Levoxyl) 50 MCG tablet Take 1 tablet by mouth. Active naproxen (Naprosyn) 500 MG tablet take 1 tablet by oral route 2 times every day with food as needed for Pain 07/10/20 21 Active polyethylene glycol, PEG, 3350 (Glycolax) 17 GM/SCOOP powder take (17G) by oral route every day mixed with 8 oz. water, juice, soda, coffee or tea for constipation 12/03/19 21 Active polyvinyl alcohol (Liquifilm Tears) 1.4 % ophthalmic solution apply 1-2 drops in both eyes 4-6 times per day 11/25/19 19 Active sennosides (Senokot) 8.6 MG tablet take 2 tablet by oral route every day as needed for constipation 06/13/20 21 Active cholecalciferol (Vitamin D-3) 50 MCG (2000 UT) capsule TAKE 1 CAPSULE BY MOUTH DAILY 09/24/19 23 Active FLUoxetine (PROzac) 40 MG capsule TAKE 2 CAPSULES BY MOUTH EVERY DAY 09/27/19 23 Active glucagon 1 MG/ML injection PLEASE SEE ATTACHED FOR DETAILED DIRECTIONS 04/23/20 22 Active FreeStyle lancets USE 1 LANCET BY TO SKIN ROUTE 3 TIMES EVERY DAY 03/19/20 22 Active traZODone (Desyrel) 50 MG tablet TAKE 1 TABLET BY MOUTH EVERYDAY AT BEDTIME 09/27/19 23 Active diphenhydrAMINE (BENADryl) 25 MG tabletIndicatio ns:Other allergic rhinitis TAKE 1-2 TABLETS BY MOUTH DAILY AT BEDTIME NEEDED 60 tablet 11/10/19 23 Active Continuous Blood Gluc Product Development Chemist (FreeStyle Angi 2 [place]) deviceIndicatio ns:Type 2 diabetes mellitus with hypoglycemia without coma, without long-term current use of insulin (CMS/HCC),Hypog lycemia Use w/ sensor 1 each 03/19/20 23 Active Blood Pressure kitIndications: Elevated blood pressure reading 1 kit in the morning. 1 kit 06/26/20 23 Active ferrous sulfate 325 (65 Fe) MG tabletIndicatio ns:Iron deficiency anemia, unspecified iron deficiency anemia type TAKE 1 TABLET BY MOUTH EVERY DAY WITH VITAMIN C. DO NOT TAKE WITH DAIRY PRODUCTS OR THYROID MEDICINE 90 tablet 3 11/08/19 24 Active Mometasone Furoate (Asmanex HFA) 100 MCG/ACT aerosol TAKE 1 PUFF BY MOUTH TWICE A DAY 13 g 1 12/27/19 24 Active FREESTYLE TEST STRIPS test stripIndication s:Type 2 diabetes mellitus with hypoglycemia without coma, without long-term current use of insulin (CMS/HCC) TEST BLOOD SUGAR UP TO 3 TIMES A DAY EVERY DAY NEEDED DIRECTED 100 strip 3 01/31/20 24 Active clotrimazole (Lotrimin) 1 % creamIndication s:Tinea cruris Apply topically 2 times daily. 60 g 1 02/13/20 24 Active montelukast (Singulair) 10 MG tablet TAKE 1 TABLET BY MOUTH EVERY DAY IN THE EVENING 90 tablet 3 03/09/20 24 Active witch danny-glycerin (Tucks) pad Use as needed up to 4x/d 100 each 06/18/20 24 Active semaglutide (Ozempic) 2 MG/1.5ML solution pen-injectorInd ications:Type 2 diabetes mellitus with hypoglycemia without coma, without long-term current use of insulin (CMS/HCC) Inject 1 mg under the skin 1 (one) time per week. 2 each 06/23/20 24 Active Continuous Glucose Sensor (FreeStyle Angi 2 Sensor) miscIndications :Type 2 diabetes mellitus with hypoglycemia without coma, without long-term current use of insulin (CMS/HCC),Hypog lycemia USE 1 SENSOR EVERY 14 DAYS. 2 each 07/10/20 24 Active fluticasone (Flonase) 50 MCG/ACT nasal sprayIndication s:Non-seasonal allergic rhinitis, unspecified trigger TAKE 1-2 SPRAYS EACH NOSTRIL 1-2 TIMES DAILY NEEDED FOR ALLERGIES 48 mL 2 07/24/20 24 Active omeprazole (PriLOSEC) [address] capsuleIndicati ons:Heartburn TAKE 1 CAPSULE BY MOUTH TWICE A DAY BEFORE A MEAL 180 capsule 1 09/22/19 25 Active Ascorbic Acid (vitamin C) 250 MG tabletIndicatio ns:Iron deficiency anemia, unspecified iron deficiency anemia type TAKE 1 TABLET BY MOUTH EVERY DAY WITH IRON TABLET 90 tablet 3 10/15/19 25 Active Ascorbic Acid (vitamin C) 250 MG tabletIndicatio ns:Iron deficiency anemia, unspecified iron deficiency anemia type TAKE 1 TABLET BY MOUTH EVERY DAY WITH IRON TABLET 90 tablet 3 10/04/19 24 2024 Discontinued omeprazole (PriLOSEC) [address] capsuleIndicati ons:Heartburn TAKE 1 CAPSULE BY MOUTH TWICE A DAY BEFORE A MEAL 180 capsule 1 01/14/20 24 2024 Discontinued Active Problems Problem Noted Date Diagnosed Date Type 2 diabetes mellitus 03/19/2023 Disorder of thyroid 10/19/2022 Elevated LFTs 10/19/2022 Iron deficiency anemia due to chronic blood loss 07/11/2022 Abnormally low peak expiratory flow rate 018 Tired 06/18/2018 Acanthosis nigricans 06/12/2018 Attention deficit hyperactivity disorder 018 History of thyroidectomy 06/12/2018 Obstructive sleep apnea syndrome 06/12/2018 Rheumatoid arthritis 06/12/2018 Varicose veins of lower extremity 06/12/2018 Autoimmune thyroiditis 06/12/2018 Acquired hypothyroidism 04/14/2018 Anxiety 04/14/2018 Menstrual bleeding problem 04/14/2018 Encounters Date Type Department Care Team Description 10/20/[address] [facility] [address] [place] [phone] Vazquez Louis ANP Nurse Triage 10/16/2024 Patient Outreach [facility] [address] [place] [phone] Vazquez Louis ANP Care Coordination (CM/CHW outreach) 10/16/[address] [phone] Schuyler Anand RN Care Management (C3- chart review) 10/15/2024 Orders Only [facility] External Provider, [facility] 10/14/[address] [facility] [address] [place] [phone] Vazquez Louis ANP Iron deficiency anemia, unspecified iron deficiency anemia type 09/19/[address] [facility] [address] [place] [phone] Vazquez Louis ANP Heartburn 09/16/[address] [facility] [address] [place] [phone] Vazquez Louis ANP Durable Medical Equipment (Shower chair) 08/22/2024 Orders Only GENERIC EXTERNAL DATA DEPARTMENT Provider, Generic External Data 08/12/2024 Orders Only GENERIC EXTERNAL DATA DEPARTMENT Provider, Generic External Data 07/24/[address] [facility] [address] [place] [phone] Vazquez Louis ANP Non-seasonal allergic rhinitis, unspecified trigger from Last 3 Months Immunizations Name Administration Dates Next Due DTP 04/11/1994, 3,02/13/1993,10/02 DTaP, 5 pertussis antigens 10/08/1996 HPV, Quadrivalent 05/18/2008,01/14/2008,11/12/19 08 Hep A, ped/adol, 2 dose 03/01/2011 Hep B, Adolescent or Pediatric 05/18/1993,1992,1992 Hib (PRP-T) 10/24/1993, 3,02/13/1993,10/02 IPV 10/08/1996, 4,02/13/1993,10/02 Influenza injectable quadriv alent IIV4 with preservative 06/12/2018 Influenza injectable quadriv alent preservative free 05/18/2022 Influenza, IIV3, injectable 06/03/2009,1 ,06/18/2007,08/14,08/07/2005,09/22/2004 Influenza, Split (incl. ashkan fied surface antigen) 05/27/2013,05/07/2012,09/19/2011,07/24 MMR 10/08/1996,10/24/1993 Meningococcal MCV4P ACYW-135 09/17/2006 Novel Qmcnwhotd-[id number], all formulations 06/21/2009 Pneumococcal Conjugate PCV 20 10/02/2023 TD (adult), 2 Lf tetanus tox oid, preservative free, adsorbed 08/16/2004 Tdap 02/27/2021,02/20/2010 Social History Tobacco Use Types Packs/Day Years Used Date Smoking Tobacco: Never Passive Smoke Exposure: Never Smokeless Tobacco: Never Tobacco Cessation:Counseling Given: Not Answered Alcohol Use Standard Drinks/Week Comments Not Currently [...] with others, in a hotel, in a halfway, living outside on the street, on a [...] Orientation Straight 07/02/2022 10 :28 AM EDT Last Filed Vital Signs Vital Sign Reading Time Taken Comments Blood Pressure 126/85 06/23/2024 10:41 AM EDT Pulse 87 06/23/2024 10:41 AM EDT Temperature 36.6 ??C (97.8 ??F) 06/23/2024 10:41 AM E DT Respiratory Rate 20 06/13/2024 9:24 AM EDT Oxygen Saturation 100% 06/23/2024 10:41 AM EDT Inhaled Oxygen Concentration - - Weight 136 kg (299 lb) 06/23/2024 10:41 AM EDT Height 162.6 cm (5' 4 ) 06/23/2024 10:41 AM EDT Body Mass Index 51.32 06/23/2024 10:41 AM EDT Plan of Treatment Upcoming Encounters Date Type Department Care Team (Late st Contact Info) Description 11/03/2024 2:15 PM EST Office Visit [facility] [address] [place], [place] [phone] Vazquez Louis, ANP [address] [place] [address] Health Maintenance Due Date Last Done Comments HIV Screening 1992 Diabetes: Foot Exam 2002 Eye Exam 2002 Alcohol/Substance Use Screening 2004 Family Planning (PISQ) 2007 Hepatitis C Screening 2010 Diabetes: Urine Protein Screening 2011 Hepatitis A Vaccines (2 of 2 - 2-dose series) 08/31/2011 03/01/2011 Lipid Panel 09/20/2023 09/20/2022, 09/21/2021 COVID-19 Vaccine ( season) 2024 Influenza Vaccine (#1) 2024 , 06/12/2018, 05/27/2013, Additional history exists Diabetes: Hemoglobin A1C 09/23/2024 024, 02/13/2024, 10/02/2023, Additional history exists Depression Screening 06/23/2025 06/23/2024, 06/23/20 24 SDOH Screening 06/23/2025 06/23/2024 Tobacco Screening 06/23/2025 06/23/2024 Cervical Cancer Screening 02/07/2026 HPV/Cotest 02/07/2026 02/07/2021, 02/07/2021 Pap Smear 02/07/2026 02/07/2021 DTaP/Tdap/Td Vaccines (8 - Td or Tdap) 02/27/2031 02/27/2021, 02/20/2010, 08/16/2004, Additional history exists Zoster Vaccines (1 of 2) 2042 RSV Patients and Patients Aged 60 years or older (1 - 1-dose 75+ series) 2067 Hepatitis B Vaccines Completed 05/18/1993, 02/13/1993, 1992 HIB Vaccines Completed 10/24/1993, 05/03, 02/13/1993, Additional history exists IPV Vaccines Completed 10/08/1996, 04/02, 02/13/1993, Additional history exists Meningococcal Vaccine Aged Out 09/17/2006 No lo ani eligible based on patient's age to complete this topic HPV Vaccines Completed 05/18/2008, 12/31, 11/12/2007 Pneumococcal Vaccine: Pediatrics (0 to 5 Years) and At-Risk Patients (6 to 49) Years) Completed 10/02/2023 RSV under 20 months Aged Out No longe r eligible based on patient's age to complete this topic Rotavirus Vaccines Aged Out No longer eligible based on patient's age to complete this topic Procedures Procedure Name Priority Date/Time Associated Diagnosis Comments CT HEAD WO CONTRAST Routine 10/15/2024 6 :11 PM EST XR CHEST 2 VIEWS Routine 08/22/2024 1:15 PM EST SARS COV2/INFLUENZA A/B AND RSV RNA QL NAAT Routine 08/22/2024 12:59 PM EST STREP A NUCLEIC ACID Routine 08/22/2024 12:59 PM EST TSH Routine 08/12/2024 3:43 PM EST T4, FREE Routine 08/12/2024 3:43 PM EST POCT GLYCATED HEMOGLOBIN, TOTAL Routine 06/23/2024 11:13 AM EDT Type 2 diabetes mellitus with hypoglycemia without coma, without long-term current use of insulin ([facility]) LIPID PANEL, STANDARD Routine 09/20/2022 4:48 PM EST ZZZ HISTORICAL HPV E6/E7 RFLX BECCA 16 18/45 Routine 02/07/2021 3:19 PM EDT HM PAP/HPV Routine 02/07/2021 from Last 3 Months or Most Recently Relevant to Health Maintenance Results * CT Head w/o Contrast (10/15/2024 6:11 PM EST) Anatomical Region Laterality Modality Head, Neck Computed Tomogra phy 10/15/2024 6:11 PM EST Narrative 10/15/2024 6:13 PM EST ? [facility] ?[address] ?[place] [address] ? CT Scan Report ? Signed ? Patient: Giovanny,Dolores ?MR#: [id number] ?? [id number] ? : 1990 ?Acct:[id number] ? Age/Sex: 34 / F ?ADM Date: 10/15/24 ? Loc: HO.ED ? Attending Dr: ? Ordering Physician: Sayda Sanders CATALOG SPECIALIST ?? Date of Service: 10/15/24 ?? Procedure(s): CT head/brain wo IV con ?? Accession Number(s): [id number] ? cc: VAZQUEZ LOUIS CATALOG SPECIALIST; Sayda Sanders CATALOG SPECIALIST ? Report Number: ?? [id number]: Total DLP = ??616.00 mGy-cm ? CLINICAL [...] in OV> ? 10/15/24 1812 ? DD/ 181 ? TD/TT: 10/15/241810 ? Tire Repairman: ? Procedure Note Indigo Birch - 10/15/[address] [place] [address] [address] Scan Report Signed Patient: Lou Baltazar#: [id number] 418 : 1990Acct:[id number] Age/Sex: 34 / FADM Date: 10/15/24 Loc: HO.ED Attending Dr: Ordering Physician: Sayda Sanders NP Date of Service: 10/15/24 Procedure(s): CT head/brain wo IV con Accession Number(s): [id number] cc: VAZQUEZ LOUIS CATALOG SPECIALIST; Sayda Sanders CATALOG SPECIALIST Report Number: [id number]: Total DLP = 616.00 mGy-cm CLINICAL HISTORY: [...] in OV> 10/15/241811 DD/ 10 TD/TT: 10/15/241810 Tire Repairman: [facility] External Provider IMG CT PROCEDURES Edited Result - Final * XR Chest 2 Views (08/22/2024 1:15 PM EST) Anatomical Region Laterality Modality Chest Radiographic Katie ging 08/22/2024 1:15 PM EST Narrative 08/22/2024 2:21 PM EST ? [facility] ?[address] ?[place] [address] ?XRay Report ? Signed ? Patient: Dolores Baltazar ?MR#: [id number] ?? [id number] ? : 1990 ?Acct:[id number] ? Age/Sex: 34 / F ?ADM Date: 08/22/24 ? Loc: HO.ED ? Attending Dr: ? Ordering Physician: Moon Figueroa ?? Date of Service: 08/22/24 ?? Procedure(s): XR chest 2V ?? Accession Number(s): [id number] ? cc: Moon Figueroa; VAZQUEZ LOUIS NP ? EXAMINATION: ?? XR CHEST ? CLINICAL INFORMATION: ?? cough ? COMPARISON: ?? Chest radiograph from 12/22/2019 ? TECHNIQUE: ?? 2 views of the chest were obtained. ? FINDINGS: ?? Bilateral low lung volumes. No pneumothorax. Trachea is midline. ?? Cardiac mediastinal silhouette is not enlarged. No large pleural ?? effusion. Osseous structures are intact. Soft tissues are unremarkable. ? XR/XR chest 2V ?? IMPRESSION: ?? Bilateral low lung volumes. ? Electronically signed by: ??Mary Carmen Wheeler MD ??08/22/2024 02:18 PM EST RP ? Dictated By: ?Mary Carmen Wheeler MD ? Signed By: ?<Electronically signed by Mary Carmen Wheeler MD in OV> ? 08/22/24 1418 ? DD/ 1315 ? TD/TT: 08/22/24 1325 ? Tire Repairman: ? Procedure Note Donotuseinterpreter, Image - 08/22/2024 [place] [address] XRay Report Signed Patient: Lou Baltazar#: [id number] 418 : 1990Acct:[id number] Age/Sex: 34 / FADM Date: 08/22/24 Loc: .ED Attending Dr: Ordering Physician: Moon Figueroa Date of Service: 08/22/24 Procedure(s): XR chest 2V Accession Number(s): [id number] cc: Moon Figueroa; VAZQUEZ LOUIS NP EXAMINATION: XR CHEST CLINICAL INFORMATION: cough COMPARISON: Chest radiograph from 12/22/2019 TECHNIQUE: 2 views of the chest were obtained. FINDINGS: Bilateral low lung volumes. No pneumothorax. Trachea is midline. Cardiac mediastinal silhouette is not enlarged. No large pleural effusion. Osseous structures are intact. Soft tissues are unremarkable. XR/XR chest 2V IMPRESSION: Bilateral low lung volumes. Electronically signed by: Mary Carmen Wheeler MD 08/22/2024 02:18 PM EST Dictated By: Mary Carmen Wheeler MD Signed By: <Electronically signed by Mary Carmen Wheeler MD in OV> 08/22/24 1418 DD/ 1315 TD/TT: 08/22/24 1325 Tire Repairman: [facility] External Provider IMG XR PROCEDURES Edited Result - Final * Strep A Nucleic Acid (08/22/2024 12:59 PM EST) IDNOW SERIAL# [id number] [facility] Strep A Nucleic Acid Negative Negative [facility] Comment:All test results mus t be correlated with clinical findings.This test has not been evaluated for monitoring treatment ofinfection.Additional follow-up testing using the culture method isrequired if the result is negative and clinical symptomspersist, or in the event of an acute rheumatic feveroutbreak. 08/22/2024 12:5 9 PM EST 08/22/2024 1:01 PM EST Generic External Data Provider LAB MICROBIOLOGY - GENERAL ORDERABLES Final Result [facility] [address] [place] [phone] * SARS-CoV-2 RNA, Influenza A/B, and RSV RNA, Ql NAAT (08/22/2024 12:59 PM EST) Influenza A PCR NEGATIVE Negative [facility] Influenza B PCR NEGATIVE Negative [facility] Resp Syncy Virus RNA Qual PCR NEGATIVE Negative [facility] SARS COV2 PCR NEGATIVE Negative [facility] Comment:All test results mus t be correlated with clinical findings.Negative results do not preclude SARS-CoV2, influenza Avirus, influenza B virus and/or RSV infectionand should not be used as the sole basis for treatment orother patient management decisions. Negative results must becombined with clinical observations, patient history, andepidemiological information.This test has not been evaluated for monitoring treatment ofinfection.This test has been authorized by the FDA under an EmergencyUse Authorization (EUA) for use by authorized laboratories.Testing performed on the [employer] GeneXpert utilizingreal-time RT-PCR.All SARS CoV2 and positive influenza A/B results arereported to [facility]. 08/22/2024 12:5 9 PM EST 08/22/2024 1:01 PM EST us Generic External Data Provider LAB MICROBIOLOGY - GENERAL ORDERABLES Final Result Performing Organization Address [facility] de Phone Number [facility] [address] [place] [phone] * (ABNORMAL) TSH (08/12/2024 3:43 PM EST) Thyroid Stimulating Hormone >100.00(H) 0.32 - 4.0 uIU/mL [facility] Comment:Note: A sustained TS H level above 2.5 uIU/mL may warrant further investigation. TSH 3rd Generation ([facility]) 08/12/2024 3:43 PM EST 08/12/2024 3:43 PM EST Generic External Data Provider LAB BLOOD ORDERAB LES Final Result Performing Organization Address [facility] Number [facility] [address] [place] [phone] * (ABNORMAL) T4, Free (08/12/2024 3:43 PM EST) Free T4 (Free Thyroxine) <0.42(L) 0.71 - 1.85 ng/dL [facility] 08/12/2024 3:43 PM EST 08/12/2024 3:43 PM EST Generic External Data Provider LAB BLOOD ORDERAB LES Final Result Performing Organization Address [facility] Co de Phone Number [facility] [address] [place] [phone] * (ABNORMAL) POCT HGB A1C (06/23/2024 11:13 AM EDT) Hemoglobin A1C 8.3(A) 4.0 - 6.0 % QC Media Lot # [id number] Lot# Expiration Date [id number] Blood 06/23/2024 11:1 3 AM EDT us Vazquez Louis ANP POINT OF CARE TEST ENTER/EDIT OR DERABLES Final Result * Lipid Panel, Standard (09/20/2022 4:48 PM EST) Triglycerides 189 mg/dL [facility] Comment:Desirable Triglyceri de: less than 150 mg/dLBorderline High Triglyceride 150-199 mg/dLHigh Triglyceride: 200-499 mg/dLVery High Triglyceride: greater than or equal to 5OO mg/dL Cholesterol 232 mg/dL [facility] Comment:Desirable Cholestero l: less than 200 mg/dLBorderline High Cholesterol: 200-239 mg/dLHigh Cholesterol: greater than 239 mg/dL LDL Cholesterol Calculated 159 mg/dl [facility] Comment:Desirable LDL: less than 100 mg/dLNear Optimal/Above Optimal LDL: 110- 129 mg/dLBorderline High LDL: 130-159 mg/dLHigh LDL: 160-189 mg/dLVery High LDL: greater than or equal to 190 mg/dL HDL Cholesterol 36 mg/dL [facility] Comment:Desirable HDL: great er than 40 mg/dL Note: This HDL assay may give artificially low results in patients with liver disease. 09/20/2022 4:48 PM EST 09/20/2022 4:48 PM EST [facility] External Provider LAB BLO OD ORDERABLES Final Result [facility] [address] [place] [phone] * HPV E6/E7 RFLX BECCA 16 18/45 (02/07/2021 3:19 PM EDT) HPV 16 RNA [facility]NP [facility] HPV 18/45 RNA [facility] HPV E6 E7 ADD [facility]NP [facility] HPV mRNA E6/E7 rflx Not Detected Not Detected [facility] Comment: Methodology: V[employer]-Mediated Amplification This assay detects E6/E7 viral messenger RNA (mRNA) from 14 high-risk HPV types (16,18,31,33,35,39,45,51,52,56,58,59,66,68). The analytical performance characteristics of this assay have been determined by [employer]. The modifications have not been cleared or approved by the FDA. This assay has been validated pursuant to the CLIA regulations and is used for clinical purposes. For additional information, please refer to http://education.[employer] [address]/faq/JGC498m4 (This link if provided for information/ educational purposes only.) THIS TEST WAS PERFORMED AT: [facility] [address] [place] [address] [address] [place], [place] ??[phone] KARIE PEREZ MD 02/07/2021 3:19 PM EDT Giorgio Mock MD HISTORICAL/NON ORDERABLE LABS Fi nal Result [facility] Anywhere [address] * Hm Pap Smear (02/07/2021) Historical Provider HEALTH MAINTENANCE Final Result from Last 3 Months or Most Recently Relevant to Health Maintenance Insurance [facility] C3 Care Teams Crane Ladle Person Relationship Specialty Start Date End Date Vazquez Louis ANP [address] [place] [phone] PCP - General Family Medicine 02/16/20 [facility] 07/11/15
== END 2024-10-21 12:27 | disposition home or self-care (01) ==
PROVIDERS: PCP Nurse Practitioner Primary Care; Visit Provider Nurse Practitioner Family
DX: D69.6 Thrombocytopenia, unspecified (principal); K59.04 Chronic idiopathic constipation; R74.01 Elevation of levels of liver transaminase levels; K21.9 Gastro-esophageal reflux disease without esophagitis; R10.13 Epigastric pain; R14.0 Abdominal distension (gaseous); K62.5 Hemorrhage of anus and rectum
CPT/HCPCS: 99214

== ENCOUNTER → 2024-10-21 11:59 | Outpatient (BNVA) | payer MEDICAID, SELFPAY | PROVIDERS: PCP Nurse Practitioner Primary Care; Visit Provider Nurse Practitioner Family | DX: Z01.818 Encounter for other preprocedural examination (principal); K21.9 Gastro-esophageal reflux disease without esophagitis; D69.6 Thrombocytopenia, unspecified; K59.04 Chronic idiopathic constipation; R74.01 Elevation of levels of liver transaminase levels; R10.13 Epigastric pain; R14.0 Abdominal distension (gaseous); K62.5 Hemorrhage of anus and rectum | CPT/HCPCS: 99212 ==

== ENCOUNTER 2024-11-11 10:40 | Outpatient (REF) | payer MEDICAID, SELFPAY ==
--- OUTSIDE RECORDS SUMMARY | 2024-11-11 12:21 | XMS_ITS | Encounter Summary ---
Author Organization [employer] Address [address] [place] [address] 7t [place] [address] Care Team Providers Care Asbestos Brake Lining Finisher Helper Name Role Phone Bernadine Ramos Primary Care Provider [phone] Encounter Details Date Type Department Care Team (Late st Contact Info) Description 05/29/2023 Orders Only [facility] MEDICINE [address] [place] [address] [phone] Provider, MD Estephanie Social History Tobacco Use [...] Care Team (Late st Contact Info) Description 02/04/2025 2:00 PM EDT Office Visit [facility] [address] [place] [phone] Bernadine Ramos ANP [address] [place], [place] [phone] documented as of this encounter Procedures Procedure [...] documented as of this encounter Care Teams Asbestos Brake Lining Finisher Helper Relationship Specialty Start Date End Date Bernadine Ramos ANP [address] [place] [address] PCP - General Family Medicine 02/16/20 [facility] 07/11/15 documented as of this encounter
--- OUTSIDE RECORDS SUMMARY | 2024-11-11 12:21 | XMS_ITS | Encounter Summary ---
Author Organization [employer] Address 75 [facility] 7t [place] [address] Care Team Providers Care Product Craftsman Name Role Phone Bernadine Ramos Primary Care Provider [phone] Reason for Visit * Reason Onset Date Comments FYI 03/22/2023 Encounter Details Date Type Department Care Team ([facility] st Contact Info) Description 03/22/2023 Telephone [facility] MEDICINE [address] [place] [address] Bernadine Ramos ANP [address] [place] [address] FYI Social History Tobacco Use Types Packs/Day [...] - 03/22/2023 2:39 PM EDT Tc [facility] [place] [facility] stating will be renewing pt care of plan on March 27 will be seeing pt 5 x a week for medication. documented in this encounter Plan of Treatment Upcoming Encounters Date Type Department Care Team (Late st Contact Info) Description 02/04/2025 2:00 PM EDT Office Visit [facility] [address] [place] [address] Bernadine Ramos ANP [address] [place] [address] documented as of this encounter Visit Diagnoses Not on filedocumented in this encounter Additional Health Concerns Assessment Noted Time PHQ-9 Depression Total Score: 0 03/19/20 23 2:00 PM EDT documented as of this encounter Care Teams Product Craftsman Relationship Specialty Start Date End Date Bernadine Ramos ANP [address] [place] [address] PCP - General Family Medicine 02/16/20 [facility] 07/11/15 documented as of this encounter
--- OUTSIDE RECORDS SUMMARY | 2024-11-11 12:21 | XMS_ITS | Encounter Summary ---
Author Organization [employer] Address [address] [facility] 7t [place] [address] Care Team Providers Care Electrical Construction Project Manager Name Role Phone Bernadine Ramos Primary Care Provider [phone] Reason for Visit * Reason Comments Care Coordination CM/CHW appt Encounter Details Date Type Department Care Team (Latest Contact Info) Description 10/28/2024 Patient Outreach [facility] MEDICINE [address] [place] [address] Bernadine Ramos ANP [address] [place] [address] Care Coordination (CM/CHW appt) Social History Tobacco [...] Description 02/04/2025 2:00 PM EDT Office Visit [facility] MEDICINE [address] [place] [address] Bernadine Ramos ANP [address] [place] [address] documented as of this encounter Visit Diagnoses Not on filedocumented in this encounter Additional Health Concerns Assessment Noted Time PHQ-9 Depression Total Score: 8 06/23/20 10:48 AM EDT documented as of this encounter Care Teams Electrical Construction Project Manager Relationship Specialty Start Date End Date Bernadine Ramos ANP [address] [place] [address] PCP - General Family Medicine 02/16/20 [facility] 07/11/15 documented as of this encounter
--- OUTSIDE RECORDS SUMMARY | 2024-11-11 12:21 | XMS_ITS | Encounter Summary ---
Author Organization [employer] Address [address] [place] [address] [address] [place] [address] Care Team Providers Care Poiser Balance Name Role Phone Bernadine Ramos Primary Care Provider [phone] Reason for Visit * Reason Comments Med Refill Encounter Details Date Type Department Care Team (Late st Contact Info) Description 03/21/2023 Refill [facility] [address] [place] [phone] Bernadine Ramos ANP [address] [place] [address] [phone] Heartburn Social History Tobacco Use Types Packs/Day [...] Description 02/04/2025 2:00 PM EDT Office Visit [facility] [address] [place] [phone] Bernadine Ramos ANP [address], [place] [phone] documented as of this encounter Visit Diagnoses Diagnosis Heartburn documented in this encounter Additional Health Concerns Assessment Noted Time PHQ-9 Depression Total Score: 0 03/19/20 23 2:00 PM EDT documented as of this encounter Care Teams Poiser Balance Relationship Specialty Start Date End Date Bernadine Ramos ANP [address] [place] [address] PCP - General Family Medicine 02/16/20 [facility] 07/11/15 documented as of this encounter
--- OUTSIDE RECORDS SUMMARY | 2024-11-11 12:21 | XMS_ITS | Encounter Summary ---
Author Organization [facility] Address [address] [place] [phone] Phone Care Team Providers Care Physicist Cryogenics Name Role Phone Austyn Lane MD Primary Care Provider [phone] Encounter Details Date Type Department Care Team (Late st Contact Info) Description 09/29/2012 Documentation [facility] [place] [address] [place] [address] Family Medicine, Physician [address] [place], [place] [phone] Social History Tobacco Use Types Packs/Day Years [...] on filedocumented in this encounter Care Teams Physicist Cryogenics Relationship Specialty Start Date End Date Austyn Lane MD [address] [place] [address] TATE Webb [address] PCP - General 04/12/17 11/14/22 documented as of this encounter
--- OUTSIDE RECORDS SUMMARY | 2024-11-11 12:21 | XMS_ITS | Encounter Summary ---
Author Organization [facility] Address [address] [place] [address] Phone Care Team Providers Care Ski Topper Name Role Phone Austyn Lane MD Primary Care Provider [phone] Encounter Details Date Type Department Care Team (Late st Contact Info) Description 12/01/2012 Documentation [facility] [place] [address] [place] [address] Family Medicine, Physician [address] [place], [place] [phone] Social History Tobacco Use Types Packs/Day Years [...] on filedocumented in this encounter Care Teams Ski Topper Relationship Specialty Start Date End Date Austyn Lane MD [address] [place] [address] TATE Webb [address] PCP - General 04/12/17 11/14/22 documented as of this encounter
--- OUTSIDE RECORDS SUMMARY | 2024-11-11 12:22 | XMS_ITS | Encounter Summary ---
Author Organization [facility] Address [address] [place] [address] Phone Care Team Providers Care Gum Machine Filler Name Role Phone Austyn Lane MD Primary Care Provider [phone] Encounter Details Date Type Department Care Team (Late st Contact Info) Description 11/10/2009 Documentation [facility] Family Medicine [address] [place] [address] Family Medicine, Physician [address] [place], [place] [phone] Social History Tobacco Use Types Packs/Day Years [...] on filedocumented in this encounter Care Teams Gum Machine Filler Relationship Specialty Start Date End Date Austyn Lane MD [address] [place] [address] TATE Webb [address] PCP - General 04/12/17 11/14/22 documented as of this encounter
--- OUTSIDE RECORDS SUMMARY | 2024-11-11 12:22 | XMS_ITS | Encounter Summary ---
Author Organization [employer] Address [address] [place] [address] Care Team Providers Care Senior Actuarial Analyst Name Role Phone Bernadine Ramos Primary Care Provider [phone] Reason for Visit * Reason Comments Care Coordination CM/CHW outreach Encounter Details Date Type Department Care Team (Latest Contact Info) Description 10/16/2024 Patient Outreach [facility] MED[facility]INE [address] [place] [address] Bernadine Ramos ANP [address] [place] [address] Care Coordination (CM/CHW outreach) Social History Tobacco [...] with others, in a hotel, in a fci, living outside on the street, on a [...] outbound call to patient introducing herself from [facility] CM Department, in regard to offering services. Patient's name and was confirmed. Patient agrees to participate in program. Appt. for initial assessment scheduled for 10/29/24 @ 1PM tele with KEENAN Anand RN. CHW reinforced direct contact information or CM for any additional questions or concerns and extended clinic hours on Mondays and Wednesdays, and Walk-[facility]Urgent Care Located in [facility]. Patient provided with after-hours line for [facility], , which offer nighttime triage service and option to transfer to concaving machine operator provider if needed. Patient verbalizes understanding, and able to repeat back to automatic typewriter inspector. documented in this encounter Plan of Treatment Upcoming Encounters Date Type Department Care Team ([facility] st Contact Info) Description 02/04/2025 2:00 PM EDT Office Visit [facility] [address] [place] [phone] Bernadine Ramos ANP [address] [place] [address] documented as of this encounter Visit Diagnoses Not on filedocumented in this encounter Additional Health Concerns Assessment Noted Time PHQ-9 Depression Total Score: 8 06/23/20 24 10:48 AM EDT documented as of this encounter Care Teams Senior Actuarial Analyst Relationship Specialty Start Date End Date Bernadine Ramos ANP [address] [place] [address] PCP - General Family Medicine 02/16/20 [facility] 07/11/15 documented as of this encounter
--- OUTSIDE RECORDS SUMMARY | 2024-11-11 12:22 | XMS_ITS | Encounter Summary ---
Author Organization [email or web address] Address [address] [facility] [address] [place] [address] Care Team Providers Care Balloon Sander Name Role Phone Bernadine Ramos Primary Care Provider [phone] Reason for Visit * Reason Comments Med Refill Encounter Details Date Type Department Care Team (Late st Contact Info) Description 10/14/2024 Refill [facility] MED[facility]INE [address] [place] [address] Bernadine Ramos ANP [address] [place] [address] Iron deficiency anemia, unspecified iron deficiency anemia [...] with others, in a hotel, in a longterm, living outside on the street, on a [...] Description 02/04/2025 2:00 PM EDT Office Visit [facility] MEDICINE [address] [place] [address] Bernadine Ramos ANP [address] [place] [address] documented as of this encounter Visit Diagnoses Diagnosis Iron deficiency anemia, unspecified iron deficiency anemia type documented in this encounter Additional Health Concerns Assessment Noted Time PHQ-9 Depression Total Score: 8 06/23/20 24 10:48 AM EDT documented as of this encounter Care Teams Balloon Sander Relationship Specialty Start Date End Date Bernadine Ramos ANP [address] [place] [phone] PCP - General Family Medicine 02/16/20 [facility] 07/11/15 documented as of this encounter
--- OUTSIDE RECORDS SUMMARY | 2024-11-11 12:22 | XMS_ITS | Encounter Summary ---
Author Organization [employer] Address [address] [facility] [address]t [place] [address] Care Team Providers Care Cost Estimating Engineer Name Role Phone Vazquez Louis Primary Care Provider [phone] Encounter Details Date Type Department Care Team (Late st Contact Info) Description 10/15/2024 Orders Only [facility] External Provider, [facility] Social History Tobacco Use Types Packs/Day [...] Description 02/04/2025 2:00 PM EDT Office Visit [facility]INE [address] [place] [address] Vazquez Louis ANP [address] [place] [address] documented as of this encounter Procedures Procedure Name Priority Date/Time Associated Diagnosis Comments CT HEAD WO CONTRAST Routine 10/15/2024 6 :11 PM EST documented in this encounter Results * CT Head w/o Contrast (10/15/2024 6:11 PM EST) Anatomical Region Laterality Modality Head, Neck Computed Tomogra phy 10/15/2024 6:11 PM EST Narrative 10/15/2024 6:13 PM EST ? [facility] ?[address] ?[place] [address] ? CT Scan Report ? Signed ? Patient: Dolores Baltazar ?MR#: [id number] ?? [id number] ? : 1990 ?Acct:[id number] ? Age/Sex: 34 / F ?ADM Date: 02/13/25 ? Loc: HO.ED ? Attending Dr: ? Ordering Physician: Sayda Sanders NP ?? Date of Service: 10/15/24 ?? Procedure(s): CT head/brain wo IV con ?? Accession Number(s): [id number] ? cc: [employer] [place] RESTAURANT INSPECTOR; Sayda Sanders NP ? Report Number: ?? [id number]: Total DLP = ??616.00 mGy-cm ? CLINICAL [...] by Ronald Paz MD in OV> ? 10/15/242 ? DD/ 1811 ? TD/TT: 10/15/24 1811 ? Supply And Distribution Manager: ? Procedure Note [facility] - 10/15/[address] [place] [address] [address] Scan Report Signed Patient: Lou Baltazar#: [id number] : 1990Acct:[id number] Age/Sex: 34 / FADM Date: 10/15/24 Loc: HO.ED Attending Dr: Ordering Physician: Sayda Sanders NP Date of Service: 10/15/24 Procedure(s): CT head/brain wo IV con Accession Number(s): [id number] cc: VA[employer] RESTAURANT INSPECTOR; Sayda Sanders NP Report Number: [id number]: Total DLP = 616.00 mGy-cm CLINICAL HISTORY: [...] in OV> 10/15/241811 DD/ 10 TD/TT: 10/15/241810 Supply And Distribution Manager: [facility] External Provider IMG CT PROCEDURES Edited Result - Final documented in this encounter Visit Diagnoses Not on filedocumented in this encounter Additional Health Concerns Assessment Noted Time PHQ-9 Depression Total Score: 8 06/23/20 24 10:48 AM EDT documented as of this encounter Care Teams Cost Estimating Engineer Relationship Specialty Start Date End Date Vazquez Louis ANP [address] [place] [address] PCP - General Family Medicine 02/16/20 [facility] 07/11/15 documented as of this encounter
--- OUTSIDE RECORDS SUMMARY | 2024-11-11 12:22 | XMS_ITS | Clinical Summary ---
Author Organization [employer] Address [address] [facility] 7t [place] [address] Care Team Providers Care Legal Counsel Name Role Phone Vazquez Louis Primary Care Provider [phone] Allergies No known active allergies Medications albuterol 108 (90 Base) MCG/ACT inhaler inhale 2 puff by inhalation route every 4 hours as needed Active buPROPion SR (Wellbutrin SR) 100 MG 12 hr tablet Take 1 tablet by mouth every 12 (twelve) hours. Active Diclofenac Sodium 1 % gel Apply topically every 8 (eight) hours. Active glucagon 1 MG injection inject 1 mg by subcutaneous route once if unable to take sugar by mouth or if unconscious, repeat in 15min if inadequate response Active glucose-vitamin C 4-6 GM-MG oral gel take 4 tablets as needed for blood sugars <60 and/or symptoms of hypoglycemia, then recheck blood sugar 15 minutes later Active hydrocortisone (Anusol-HC) 2.5 % rectal cream apply by topical route 4 times every day to the affected area(s) Active levothyroxine (Synthroid, Levoxyl) 200 MCG tablet Take 1 tablet by mouth at bed time. Active levothyroxine (Synthroid, Levoxyl) 50 MCG tablet Take 1 tablet by mouth. Active polyethylene glycol, PEG, 3350 (Glycolax) 17 GM/SCOOP powder take (17G) by oral route every day mixed with 8 oz. water, juice, soda, coffee or tea for constipation Active polyvinyl alcohol (Liquifilm Tears) 1.4 % ophthalmic solution apply 1-2 drops in both eyes 4-6 times per day 019 Active sennosides (Senokot) 8.6 MG tablet take 2 tablet by oral route every day as needed for constipation 021 Active cholecalciferol (Vitamin D-3) 50 MCG (2000 UT) capsule TAKE 1 CAPSULE BY MOUTH DAILY 023 Active FLUoxetine (PROzac) 40 MG capsule TAKE 2 CAPSULES BY MOUTH EVERY DAY 023 Active glucagon 1 MG/ML injection PLEASE SEE ATTACHED FOR DETAILED DIRECTIONS 022 Active FreeStyle lancets USE 1 LANCET BY TO SKIN ROUTE 3 TIMES EVERY DAY 022 Active traZODone (Desyrel) 50 MG tablet TAKE 1 TABLET BY MOUTH EVERYDAY AT BEDTIME 023 Active diphenhydrAMINE (BENADryl) 25 MG tabletIndicatio ns:Other allergic rhinitis TAKE 1-2 TABLETS BY MOUTH DAILY AT BEDTIME NEEDED 60 tablet 023 Active Continuous Blood Gluc Oil Program Compliance Specialist (FreeStyle Angi 2 [place]) deviceIndicatio ns:Type 2 diabetes mellitus with hypoglycemia without coma, without long-term current use of insulin (CMS/HCC),Hypog lycemia Use w/ sensor 1 each 023 Active Blood Pressure kitIndications: Elevated blood pressure reading 1 kit in the morning. 1 kit 023 Active ferrous sulfate 325 (65 Fe) MG tabletIndicatio ns:Iron deficiency anemia, unspecified iron deficiency anemia type TAKE 1 TABLET BY MOUTH EVERY DAY WITH VITAMIN C. DO NOT TAKE WITH DAIRY PRODUCTS OR THYROID MEDICINE 90 tablet 3 024 Active Mometasone Furoate (Asmanex HFA) 100 MCG/ACT aerosol TAKE 1 PUFF BY MOUTH TWICE A DAY 13 g 1 024 Active FREESTYLE TEST STRIPS test stripIndication s:Type 2 diabetes mellitus with hypoglycemia without coma, without long-term current use of insulin (CMS/HCC) TEST BLOOD SUGAR UP TO 3 TIMES A DAY EVERY DAY NEEDED DIRECTED 100 strip 3 024 Active clotrimazole (Lotrimin) 1 % creamIndication s:Tinea cruris Apply topically 2 times daily. 60 g 1 06/13/2 024 Active montelukast (Singulair) 10 MG tablet TAKE 1 TABLET BY MOUTH EVERY DAY IN THE EVENING 90 tablet 3 024 Active witch danny-glycerin (Tucks) pad Use as needed up to 4x/d 100 each 11 024 Active semaglutide (Ozempic) 2 MG/1.5ML solution pen-injectorInd ications:Type 2 diabetes mellitus with hypoglycemia without coma, without long-term current use of insulin ([facility]) Inject 1 mg under the skin 1 (one) time per week. 2 each 12 Active Continuous Glucose Sensor (FreeStyle Angi 2 Sensor) miscIndications :Type 2 diabetes mellitus with hypoglycemia without coma, without long-term current use of insulin ([facility]),Hypog lycemia USE 1 SENSOR EVERY 14 DAYS. 2 each 11 Active fluticasone (Flonase) 50 MCG/ACT nasal sprayIndication s:Non-seasonal allergic rhinitis, unspecified trigger TAKE 1-2 SPRAYS EACH NOSTRIL 1-2 TIMES DAILY NEEDED FOR ALLERGIES 48 mL 2 024 Active omeprazole (PriLOSEC) [address] capsuleIndicati ons:Heartburn TAKE 1 CAPSULE BY MOUTH TWICE A DAY BEFORE A MEAL 180 capsule 1 025 Active Ascorbic Acid (vitamin C) 250 MG tabletIndicatio ns:Iron deficiency anemia, unspecified iron deficiency anemia type TAKE 1 TABLET BY MOUTH EVERY DAY WITH IRON TABLET 90 tablet 3 025 Active Emollient (Eucerin Advanced Repair) creamIndication s:Callus,Dry skin Apply twice daily to clean, dry feet 454 g 11 025 Active naproxen (Naprosyn) 500 MG tablet take 1 tablet by oral route 2 times every day with food as needed for Pain 021 2024 Discontinued(T herapy completed) Ascorbic Acid (vitamin C) 250 MG tabletIndicatio ns:Iron deficiency anemia, unspecified iron deficiency anemia type TAKE 1 TABLET BY MOUTH EVERY DAY WITH IRON TABLET 90 tablet 3 024 2024 Discontinued Active Problems Problem Noted Date [...] Encounters Date Type Department Care Team Description 11/03/2024 2:15 PM EST Office Visit [address] [address] Vazquez Louis ANP Encounter for immunization (Primary Dx); Type 2 diabetes mellitus with hypoglycemia without coma, without long-term current use of insulin ([facility]); Callus; Dry skin 11/03/2024 Travel 11/02/[address] [address] Vazquez Louis ANP Chart Prep 10/28/2024 Patient Outreach [address] [address] Vazquez Louis ANP Care Coordination (CM/CHW appt) 10/20/[address] [address] Vazquez Louis ANP Nurse Triage 10/16/2024 Patient Outreach [address] [address] Vazquez Louis ANP Care Coordination (CM/CHW outreach) 10/16/[address] [address] Schuyler Anand, APOLLO Care Management (C3CM- chart review) 10/15/2024 Orders Only [facility] External Provider, [facility] 10/14/2024 Refill [facility] [address] [place] [address] Vazquez Louis ANP Iron deficiency anemia, unspecified iron deficiency anemia type 09/19/[address] [address] Vazquez Louis ANP Heartburn 09/16/2024 Telephone [facility] [address] [place] [phone] Vazquez Louis ANP Durable Medical Equipment (Shower [...] Split (incl. ashkan fied surface antigen) 05/27/2013,05/07/2012,09/19/2011,07/24 Influenza, seasonal, injecta ble, preservative free 11/03/2024 MMR 10/08/1996,10/24/1993 Meningococcal MCV4P ACYW-135 09/17/2006 Novel [id number]-[id number], all formulations 06/21/2009 Pneumococcal Conjugate PCV 20 [...] with others, in a hotel, in a jail, living outside on the street, on a [...] Sign Reading Time Taken Comments Blood Pressure 144/89 11/03/2024 2:24 PM EST Pulse 89 11/03/2024 2:24 PM EST Temperature 36.7 ??C (98 ??F) 11/03/2024 2:24 PM EST Respiratory Rate 14 11/03/2024 2:24 PM EST Oxygen Saturation 100% 11/03/2024 2:24 PM EST Inhaled Oxygen Concentration - - Weight 120 kg (265 lb) 11/03/2024 2:24 PM EST Height 162.6 cm (5' 4 ) 06/23/2024 10:41 AM EDT Body Mass Index 45.49 06/23/2024 10:41 AM EDT Plan of Treatment Upcoming Encounters Date Type Department Care Team (Late st Contact Info) Description 02/04/2025 2:00 PM EDT Office Visit [facility] [address] [place], [place] [phone] Vazquez Louis, ITZEL [address] [place] [address] Health Maintenance Due Date Last Done Comments HIV Screening 1992 Eye Exam 2002 Alcohol/Substance Use Screening 2004 Family Planning (PISQ) 2007 Hepatitis C Screening 2010 Diabetes: Urine Protein Screening 2011 Hepatitis A Vaccines (2 of 2 - 2-dose series) 08/31/2011 03/01/2011 Lipid Panel 09/20/2023 09/20/2022, 09/21/2021 COVID-19 Vaccine ( season) 2024 Diabetes: Hemoglobin A1C 02/03/2025 025, 06/23/2024, 02/13/2024, Additional history exists Depression Screening 06/23/2025 06/23/2024, 06/23/20 24 SDOH Screening 06/23/2025 06/23/2024 Diabetes: Foot Exam 11/03/2025 11/03/2024, 11/03/2024, 11/03/2024, Additional history exists Tobacco Screening 11/03/2025 11/03/2024 Cervical Cancer Screening 02/07/2026 HPV/Cotest 02/07/2026 02/07/2021, [...] Patients (6 to 49) Years) Completed 10/02/2023 Influenza Vaccine Completed 11/03/2024, , 06/12/2018, Additional history exists RSV under 20 months Aged Out No longe r eligible based on patient's age to complete this topic Rotavirus Vaccines Aged Out No longer eligible based on patient's age to complete this topic Procedures Procedure Name Priority Date/Time Associated Diagnosis Comments POCT GLYCATED HEMOGLOBIN, TOTAL Routine 11/03/2024 2:32 PM EST Type 2 diabetes mellitus with hypoglycemia without coma, without long-term current use of insulin ([facility]) POCT GLUCOSE Routine 11/03/2024 2:26 PM EST Type 2 diabetes mellitus with hypoglycemia without coma, without long-term current use of insulin ([facility]) CT HEAD WO CONTRAST Routine 10/15/2024 6 :11 PM EST XR CHEST 2 VIEWS Routine 08/22/2024 1:15 PM EST SARS COV2/INFLUENZA A/B AND RSV RNA QL NAAT Routine 08/22/2024 12:59 PM EST STREP A NUCLEIC ACID Routine 08/22/2024 12:59 PM EST LIPID PANEL, STANDARD Routine 09/20/2022 4:48 PM EST ZZZ HISTORICAL HPV E6/E7 RFLX BECCA 16 18/45 Routine 02/07/2021 3:19 PM EDT HM PAP/HPV Routine 02/07/2021 from Last 3 Months or Most Recently Relevant to Health Maintenance Results * (ABNORMAL) POCT HGB A1C (11/03/2024 2:32 PM EST) Hemoglobin A1C 6.2(A) 4.0 - 6.0 % QC Media Lot # [id number] Lot# Expiration Date ,026 Blood 11/03/2024 2:32 PM EST us Vazquez ROBBINS POINT OF CARE TEST ENTER/EDIT OR DERABLES Final Result * POCT Glucose (11/03/2024 2:26 PM EST) Glucose Blood, POC 89 60 - 200 mg/dL QC Media Lot # [id number] Lot# Expiration Date 969,025 Blood Capillary blood specimen / Unknown 11/03/2024 2:26 PM EST us Vazquez ROBBINS POINT OF CARE TEST ENTER/EDIT OR DERABLES Final Result * CT Head w/o Contrast (10/15/2024 6:11 PM EST) Anatomical Region Laterality Modality Head, Neck Computed Tomogra phy 10/15/2024 6:11 PM EST Narrative 10/15/2024 6:13 PM EST ? [facility] ?[address] ?[place] [address] ? CT Scan Report ? Signed ? Patient: Dolores Baltazar ?MR#: [id number] ?? [id number] ? : 1990 ?Acct:[id number] ? Age/Sex: 34 / F ?ADM Date: 02/13/25 ? Loc: HO.ED ? Attending Dr: ? Ordering Physician: Sayda Sanders NP ?? Date of Service: 10/15/24 ?? Procedure(s): CT head/brain wo IV con ?? Accession Number(s): [id number] ? cc: VAZQUEZ LOUIS HADOOP JAVA DEVELOPER; Sayda Sanders NP ? Report Number: ?? [id number]: Total DLP = ??616.00 mGy-cm ? CLINICAL [...] DD/ 1811 ? TD/TT: 10/15/24 1811 ? Multi Share Program Coordinator: ? Procedure Note Indigo Birch - 10/15/[address] [place] [address] [address] Scan Report Signed Patient: Lou Baltazar#: [id number] : 1990Acct:[id number] Age/Sex: 34 / FADM Date: 10/15/24 Loc: HO.ED Attending Dr: Ordering Physician: Sayda Sanders NP Date of Service: 10/15/24 Procedure(s): CT head/brain wo IV con Accession Number(s): [id number] cc: VAZQUEZ LOUIS HADOOP JAVA DEVELOPER; Sayda Sanders NP Report Number: [id number]: Total DLP = 616.00 mGy-cm CLINICAL HISTORY: [...] in OV> 10/15/241811 DD/ 10 TD/TT: 10/15/241810 Multi Share Program Coordinator: [facility] External Provider IMG CT PROCEDURES Edited Result - Final * XR Chest 2 Views (08/22/2024 1:15 PM EST) Anatomical Region Laterality Modality Chest Radiographic Katie ging 08/22/2024 1:15 PM EST Narrative 08/22/2024 2:21 PM EST ? [facility] ?[address] ?[place] [address] ?XRay Report ? Signed ? Patient: Giovanny,Dolores ?MR#: [id number] ?? [id number] ? : 1990 ?Acct:[id number] ? Age/Sex: 34 / F ?ADM Date: 08/22/24 ? Loc: HO.ED ? Attending Dr: ? Ordering Physician: Moon Figueroa ?? Date of Service: 08/22/24 ?? Procedure(s): XR chest 2V ?? Accession Number(s): [id number] ? cc: Moon Figueroa; VAZQUEZ LOUIS NP [...] low lung volumes. ? Electronically signed by: ??Samer Fadl MD ??08/22/2024 02:18 PM EST RP ? Dictated By: ?Fadl,Samer MD ? Signed By: ?<Electronically signed by Samer Fadl, MD in OV> ? 08/22/24 1418 ? DD/ 1315 ? TD/TT: 08/22/24 1325 ? Multi Share Program Coordinator: ? Procedure Note Donotuseinterpreter, Image - 08/22/[address] [address] XRay Report Signed Patient: Lou Baltazar#: [id number] : 1990Acct:[id number] Age/Sex: 34 / FADM Date: 08/22/24 Loc: HO.ED Attending Dr: Ordering Physician: Moon Figueroa Date of Service: 08/22/24 Procedure(s): XR chest 2V Accession Number(s): [id number] cc: Moon Figueroa; VAZQUEZ LOUIS NP EXAMINATION: [...] 08/22/24 1418 DD/ 1315 TD/TT: 08/22/24 1325 Multi Share Program Coordinator: [facility] External Provider IMG XR PROCEDURES Edited Result - Final * Strep A Nucleic Acid (08/22/2024 12:59 PM EST) IDNOW SERIAL# [id number] [facility] Strep A Nucleic Acid Negative Negative [facility] Comment:All test results mus t be [...] GENERAL ORDERABLES Final Result Performing Organization Address [facility] de Phone Number [facility] [address] [place] [phone] * SARS-CoV-2 RNA, Influenza A/B, and RSV RNA, Ql NAAT (08/22/2024 12:59 PM EST) Influenza A PCR NEGATIVE Negative [facility] Influenza B PCR NEGATIVE Negative [facility] Resp Syncy Virus RNA Qual PCR NEGATIVE Negative [facility] SARS COV2 PCR NEGATIVE Negative [facility] Comment:All test results mus t be [...] use by authorized laboratories.Testing performed on the [facility] GeneXpert utilizingreal-time RT-PCR.All SARS CoV2 and positive influenza A/B results arereported to [facility]. 08/22/2024 12:5 9 PM EST 08/22/2024 1:01 PM EST Generic External Data Provider LAB MICROBIOLOGY - GENERAL ORDERABLES Final Result Performing Organization Address [facility] Co de Phone Number [facility] [address] [place] [phone] * Lipid Panel, Standard (09/20/2022 4:48 PM EST) Triglycerides 189 mg/dL [facility] Comment:Desirable Triglyceri de: less than 150 mg/dLBorderline High Triglyceride 150-199 mg/dLHigh Triglyceride: 200-499 mg/dLVery High Triglyceride: greater than or equal to 5OO mg/dL Cholesterol 232 mg/dL [facility] Comment:Desirable Cholestero l: less than 200 mg/dLBorderline High Cholesterol: 200-239 mg/dLHigh Cholesterol: greater than 239 mg/dL LDL Cholesterol Calculated 159 mg/dl [facility] Comment:Desirable LDL: less than 100 mg/dLNear Optimal/Above Optimal LDL: 110- 129 mg/dLBorderline High LDL: 130-159 mg/dLHigh LDL: 160-189 mg/dLVery High LDL: greater than or equal to 190 mg/dL HDL Cholesterol 36 mg/dL [facility] Comment:Desirable HDL: great er than 40 mg/dL Note: This HDL assay may give artificially low results in patients with liver disease. 09/20/2022 4:48 PM EST 09/20/2022 4:48 PM EST us [facility] External Provider LAB BLO OD ORDERABLES Final Result Performing Organization Address City/State/[facility] Co de Phone Number [facility] [address] [place] [phone] * HPV E6/E7 RFLX BECCA 16 18/45 (02/07/2021 3:19 PM EDT) HPV 16 RNA TNP [facility] HPV 18/45 RNA TNP [facility] HPV E6 E7 ADD TNP [facility] HPV mRNA E6/E7 rflx Not Detected Not Detected [facility] Comment: Methodology: Internal Grinding Machine Operator-Mediated Amplification This assay detects E6/E7 viral messenger RNA (mRNA) from 14 high-risk HPV types (16,18,31,33,35,39,45,51,52,56,58,59,66,68). The analytical performance characteristics of this assay have been determined by [employer]. The modifications have not been cleared or approved by the FDA. This assay has been validated pursuant to the CLIA regulations and is used for clinical purposes. For additional information, please refer to http://education.[employer]/faq/HHF722n9 (This link if provided for information/ educational purposes only.) THIS TEST WAS PERFORMED AT: [facility] [address] [place], [place] [address] [place], [place] ??[phone] KARIE PEREZ MD 02/07/2021 3:19 PM EDT Giorgio Mock MD HISTORICAL/NON ORDERABLE LABS Fi nal Result [facility] [address] * Pap Smear (02/07/2021) us Historical Provider HEALTH MAINTENANCE Final Result from Last 3 Months or Most Recently Relevant to Health Maintenance [facility] Care Teams Legal Counsel Relationship Specialty Start Date End Date Vazquez Louis ANP [address] [place] [address] PCP - General Family Medicine 02/16/20 [facility] 07/11/15
--- OUTSIDE RECORDS SUMMARY | 2024-11-11 12:22 | XMS_ITS | Clinical Summary ---
Author Organization [facility] Address [address] [place] [address] Phone Care Team Providers Care Charge Coordinator Name Role Phone Unavailable Primary Care Provider [...] complete this topic Procedures * Due to [place] state law, this organization might not be sharing sensitive test results. Procedure Name Priority Date/Time Associated Diagnosis Comments CHLAMYDIA AND GONORRHEA, AMPLIFIED Routine 08/08/2010 1:32 PM EST from Last 3 Months or Most Recently Relevant to Health Maintenance Results * Due to [place] state law, this organization might not be sharing sensitive test results. * Chlamydia and Gonorrhoea, Amplified (08/08/2010 1:32 PM EST) Pathologist [facility] URINE CHLAMYDIA AMP PROBE NEGATIVE [facility] Comment: NO CHLAMYDIA TRACHOMATIS RNA DETECTED IN THIS PATIENT'S SAMPLE. ? (REFERENCE RANGE/NORMAL VALUE: NOT DETECTED) ? URINE GC AMP PROBE NEGATIVE [facility] Comment: NO NEISSERIA GONORRHOEAE RNA DETECTED IN THIS PATIENT'S SAMPLE. ? (REFERENCE RANGE/NORMAL VALUE: NOT DETECTED) ? NOTE: THIS TEST USES DOUGHNUT MAKER MEDIATED AMPLIFICATION METHOD TO DETECT rRNA FROM [...] OTHER AGENTS. 08/08/2010 1:32 PM EST Narrative [facility] - 08/08/2010 1:32 PM EST URINE CHLAMYDIA GC AMP PROBE us Veronica Lux NP LAB MICROBIOLOGY - GENERAL OR DERABLES Final Result [facility] [address] [place] [address], [place] from Last 3 Months or Most Recently Relevant to Health Maintenance
--- OUTSIDE RECORDS SUMMARY | 2024-11-11 12:22 | XMS_ITS | Encounter Summary ---
Author Organization [facility] Address [address] [place] [address] Phone Care Team Providers Care Screen Door Maker Name Role Phone Austyn Lane MD Primary Care Provider [phone] Encounter Details Date Type Department Care Team (Late st Contact Info) Description 04/06/2013 Documentation [facility] [address] [place] [address] Family Medicine, Physician [address] [place], [place] [phone] Social History Tobacco Use Types Packs/Day Years [...] on filedocumented in this encounter Care Teams Screen Door Maker Relationship Specialty Start Date End Date Austyn Lane MD [address] [place] [address] [place] [address] PCP - General 04/12/17 11/14/22 documented as of this encounter
--- OUTSIDE RECORDS SUMMARY | 2024-11-11 12:22 | XMS_ITS | Encounter Summary ---
Author Organization [employer] Address [address] [facility] [address] [place] [address] Care Team Providers Care Track Service Worker Name Role Phone Bernadine Ramos Primary Care Provider [phone] Reason for Visit * Reason Onset Date Comments Chart Prep 11/02/2024 Encounter Details Date Type Department Care Team ([facility] st Contact Info) Description 11/02/2024 Telephone [facility] [address] [place] [address] Bernadine Ramos ANP [address] [place] [address] Chart Prep Social History Tobacco Use Types Packs/Day Years [...] encounter Miscellaneous Notes * Telephone Encounter - [facility] [place] - 11/02/2024 3:15 PM EST Chart Prep Labs: done Images: not applicable Vaccines due: Covid Due, Hep A Due, and Flu Due Referrals: Gastroenterology Completed Screenings: Eye Exam, Foot Exam, and HIV screening Overdue care gaps: A1C, Glucose, Sbirt, and Oral Health documented in this encounter Plan of Treatment Upcoming Encounters Date Type Department Care Team (Late st Contact Info) Description 02/04/2025 2:00 PM EDT Office Visit [facility] [address] [place] [address] Bernadine aRmos ANP [address] [place] [address] documented as of this encounter Visit Diagnoses Not on filedocumented in this encounter Additional Health Concerns Assessment Noted Time PHQ-9 Depression Total Score: 8 06/23/20 24 10:48 AM EDT documented as of this encounter Care Teams Track Service Worker Relationship Specialty Start Date End Date Bernadine Ramos ANP [address] [place] [phone] PCP - General Family Medicine 02/16/20 [facility] 07/11/15 documented as of this encounter
--- OUTSIDE RECORDS SUMMARY | 2024-11-11 12:22 | XMS_ITS | Encounter Summary ---
Author Organization [facility] Address [address] [place] [address] Phone Care Team Providers Care Dry Kiln Feeder Name Role Phone Austyn Lane MD Primary Care Provider [phone] Encounter Details Date Type Department Care Team (Late st Contact Info) Description 09/26/2012 Documentation [facility] [place] [address] [place] [address] Family Medicine, Physician [address] [place], [place] [phone] Social History Tobacco Use Types Packs/Day Years [...] on filedocumented in this encounter Care Teams Dry Kiln Feeder Relationship Specialty Start Date End Date Austyn Lane MD [address] [place] [address] [place] [address] PCP - General 04/12/17 11/14/22 documented as of this encounter
--- OUTSIDE RECORDS SUMMARY | 2024-11-11 12:22 | XMS_ITS | Encounter Summary ---
Author Organization [facility] Address [address] [place] [address] Phone Care Team Providers Care Bridge Toll Collector Name Role Phone Austyn Lane MD Primary Care Provider [phone] Encounter Details Date Type Department Care Team (Late st Contact Info) Description 04/18/2017 Conversion Encounter [facility] [address] [facility] [place] [address] Social History Tobacco Use Types Packs/Day Years [...] on filedocumented in this encounter Care Teams Bridge Toll Collector Relationship Specialty Start Date End Date Austyn Lane MD [address] [facility] [place] [address] PCP - General 04/12/17 11/14/22 documented as of this encounter
--- OUTSIDE RECORDS SUMMARY | 2024-11-11 12:22 | XMS_ITS | Encounter Summary ---
Author Organization [facility] Address [address] [place] [address] Phone Care Team Providers Care Recreational Aide Name Role Phone Austyn Lane MD Primary Care Provider [phone] Encounter Details Date Type Department Care Team (Late st Contact Info) Description 12/21/2011 Documentation [facility] Family Medicine [address] [place] [address] Family Medicine, Physician [address] [place], [place] [phone] Social History Tobacco Use Types Packs/Day Years [...] on filedocumented in this encounter Care Teams Recreational Aide Relationship Specialty Start Date End Date Austyn Lane MD [address] [place] [address] [place] [address] PCP - General 04/12/17 11/14/22 documented as of this encounter
--- OUTSIDE RECORDS SUMMARY | 2024-11-11 12:22 | XMS_ITS | Encounter Summary ---
Author Organization [employer] Address [address] [place] [address] Care Team Providers Care Gasoline Dragline Operator Name Role Phone Bernadine Ramos Primary Care Provider [phone] Encounter Details Date Type Department Care Team (Latest Contact Info) Description 11/03/2024 Travel Social History Tobacco Use Types Packs/Day Years [...] Description 02/04/2025 2:00 PM EDT Office Visit [facility] MEDICINE [address] [place] [address] Bernadine Ramos ANP [address] [place] [address] documented as of this encounter Visit Diagnoses Not on filedocumented in this encounter Additional Health Concerns Assessment Noted Time PHQ-9 Depression Total Score: 8 06/23/20 24 10:48 AM EDT documented as of this encounter Care Teams Gasoline Dragline Operator Relationship Specialty Start Date End Date Bernadine Ramos ANP [address] [place] [address] PCP - General Family Medicine 02/16/20 [facility] 07/11/15 documented as of this encounter
--- OUTSIDE RECORDS SUMMARY | 2024-11-11 12:22 | XMS_ITS | Encounter Summary ---
Author Organization [employer] Address [address] [facility] [address] [place] [address] Care Team Providers Care Windows System Admin Name Role Phone Bernadine Ramos Primary Care Provider [phone] Reason for Visit * Reason Onset Date Comments Care Management 10/16/2024 [facility]- chart revi ew Encounter Details Date Type Department Care Team ([facility] st Contact Info) Description 10/16/2024 Telephone [facility] MEDICINE [address] [place] [address] Schuyler Anand RN [address] [place] [address] Care Management (CM- chart review) Social History [...] Type 2 DM. Specialists include [facility] (visit scheduled 10/21/24), [facility] General Surgery, PT, Podiatry, [facility] Endo, and Nutrition. Patient receiving VNA services from [facility]. ED visits within the last 12 months include [facility] 10/15/24 and [facility] 08/22/24. Last appointment in PCP office on 06/23/24. Next appointment scheduled for 11/03/24 at 2:15pm. documented in this encounter Plan of Treatment Upcoming Encounters Date Type Department Care Team (Late st Contact Info) Description 02/04/2025 2:00 PM EDT Office Visit [facility] MEDICINE [address] [place] [address] Bernadine Ramos ANP [address] [place] [address] documented as of this encounter Visit Diagnoses Not on filedocumented in this encounter Additional Health Concerns Assessment Noted Time PHQ-9 Depression Total Score: 8 06/23/20 24 10:48 AM EDT documented as of this encounter Care Teams Windows System Admin Relationship Specialty Start Date End Date Bernadine Ramos ANP [address] [place] [address] PCP - General Family Medicine 02/16/20 [facility] 07/11/15 documented as of this encounter
--- OUTSIDE RECORDS SUMMARY | 2024-11-11 12:22 | XMS_ITS | Encounter Summary ---
Author Organization [employer] Address [address] [place] [address] 7t [place] [address] Care Team Providers Care Clearance Diver Name Role Phone Bernadine Ramos Primary Care Provider [phone] Reason for Referral * Consultation (Routine) - Authorized Specialty Diagnoses / Procedures Referred By Kaden valle Referred To Contact Podiatry Diagnoses Type 2 diabetes mellitus with hypoglycemia without coma, without long-term current use of insulin (CMS/HCC) Callus Dry skin Bernadine Ramos ANP [address] [place] [address] Phone: tel: fax: Ismael Paige DPM [address] [facility] [address] [place] [address] Phone: tel: fax: Referral ID Status Reason Start Date Expiration Date Visits Requested Visits Authorized [id number] Authorized Specialty Services Required 11/04/2024 11/04/2025 6 6 Reason for Visit * Reason Comments Diabetes Encounter Details Date Type Department Care Team (Late st Contact Info) Description 11/03/2024 2:15 PM EST Office Visit [facility] MEDICINE [address] [place] [address] Bernadine Ramos ANP [address] [place] [address] Encounter for immunization (Primary Dx); Type 2 diabetes mellitus with hypoglycemia without coma, without long-term current use of insulin (CMS/HCC); Callus; Dry skin Social History Tobacco Use Types Packs/Day Years [...] with others, in a hotel, in a prison, living outside on the street, on a [...] AM EDT documented as of this encounter Last Filed Vital Signs Vital Sign Reading Time Taken Comments Blood Pressure 144/89 11/03/2024 2:24 PM EST Pulse 89 11/03/2024 2:24 PM EST Temperature 36.7 ??C (98 ??F) 11/03/2024 2:24 PM EST Respiratory Rate 14 11/03/2024 2:24 PM EST Oxygen Saturation 100% 11/03/2024 2:24 PM EST Inhaled Oxygen Concentration - - Weight 120 kg (265 lb) 11/03/2024 2:24 PM EST Height - - Body Mass Index 45.49 06/23/2024 10:41 AM EDT documented in this encounter Progress Notes * ITZEL Floyd - 11/03/2024 2:15 PM EST SUBJECTIVE: Dolores Baltazar is a 34 y.o. year old female who presents for chronic disease management. Denies recent illness, injury, or hospitalization. PMH hypothyroid, anemia, COLLETTE, rheumatoid arthritis, type 2 diabetes Acute Concerns: She saw gastro October 21, 2024 who prescribed Nexium and advised Nexium in a.m. and famotidine atbedtime. They are also ordering colonoscopy and EGD to be scheduled. 2. DM: BGs range b/w 70's-140's. Tolerating ozempic ok but has significantly decreased diet. Uses CGM for BG. 3. Having dry skin and cracking on both soles of feet. Would like to see podiatry. Will re-refer. Gave info to contact office, last referral may still be active but will need renewal to cont past October 2024. BMI Readings from Last 3 Encounters: 11/03/24 45.49 kg/m?? 06/23/24 51.32 kg/m?? 06/13/24 51.53 kg/m?? Wt Readings from Last 3 Encounters: 11/03/24 265 lb (120 kg) 06/23/24 299 lb (136 kg) 06/13/24 300 lb 3.2 oz (136 kg) Non-smoker Not sexually active Lives with mom Social History Social History Narrative Not on file Patient Active Problem List Diagnosis Acanthosis nigricans Acquired hypothyroidism Anxiety Attention deficit hyperactivity disorder Disorder of thyroid Elevated LFTs History of thyroidectomy Iron deficiency anemia due to chronic blood loss Obstructive sleep apnea syndrome Rheumatoid arthritis (CMS/HCC) Varicose veins of lower extremity Abnormally low peak expiratory flow rate Autoimmune thyroiditis Menstrual bleeding problem Tired Type 2 diabetes mellitus (CMS/HCC) History reviewed. No pertinent surgical history. Family History Adopted: Yes Review of Systems Constitutional: Negative for chills and fever. HENT: Negative for sore throat. Respiratory: Negative for cough and shortness of breath. Cardiovascular: Negative for chest pain. Gastrointestinal: Negative for constipation and diarrhea. Endocrine: Negative for polydipsia, polyphagia and polyuria. Genitourinary: Negative for dysuria. OBJECTIVE: Vitals: 11/03/24 1424 BP: (!) 144/89 BP Location: Left arm Patient Position: Sitting BP Cuff Size: Adult Pulse: 89 Resp: 14 Temp: 98 ??F (36.7 ??C) TempSrc: Temporal SpO2: 100% Weight: 265 lb (120 kg) Physical Exam Vitals reviewed. Constitutional: General: She is not in acute distress. Appearance: Normal appearance. She is obese. She is not toxic-appearing. HENT: Head: Normocephalic and atraumatic. Eyes: General: No scleral icterus. Extraocular Movements: Extraocular movements intact. Pupils: Pupils are equal, round, and reactive to light. Cardiovascular: Rate and Rhythm: Normal rate and regular rhythm. Pulses: Dorsalis pedis pulses are 2+ on the right side and 2+ on the left side. Posterior tibial pulses are 2+ on the right side and 2+ on the left side. Pulmonary: Effort: Pulmonary effort is normal. Musculoskeletal: Right foot: Normal range of motion. Left foot: Normal range of motion. Feet: Right foot: Protective Sensation: 7 sites tested. 4 sites sensed. Skin integrity: Callus and dry skin present. Toenail Condition: Right toenails are normal. Left foot: Protective Sensation: 7 sites tested. 4 sites sensed. Skin integrity: Callus and dry skin present. Toenail Condition: Left toenails are normal. Comments: Inversion L foot Neurological: Mental Status: She is alert. Psychiatric: Mood and Affect: Mood normal. Behavior: Behavior normal. ASSESSMENT/PLAN Dolores was seen today for diabetes. Diagnoses and all orders for this visit: Encounter for immunization (Primary) - FLU VACCINE TRIVALENT (Fluarix) 6 mo + Type 2 diabetes mellitus with hypoglycemia without coma, without long-term current use of insulin ([facility]) Lab Results Component Value Date HGBA1C 6.2 (A) 11/03/2024 A1c is stable Got significant hypoglycemia with metformin Do not recommend increase to Ozempic at this time given she has already fairly decreased appetite and has lost 30 pounds since June 2024 Eye exam: Patient will call eye and LASIK for appointment Foot exam decree sensation to monofilament suspect due to calluses 11/03/2024 Reminded patient of importance of regular exercise and especially weight-lifting while on GLP-1 BP elevated, noted to be improved on repeat but not recorded in chart - POCT Glucose - POCT HGB A1C - Albumin, Random Urine W/Creatinine; Future - Referral to Podiatry; Future Callus - Emollient (Eucerin Advanced Repair) cream; Apply twice daily to clean, dry feet - Referral to Podiatry; Future Dry skin - Emollient (Eucerin Advanced Repair) cream; Apply twice daily to clean, dry feet - Referral to Podiatry; Future Other orders - Cancel: [employer] COVID-19 Vaccine 12+ Follow Up: 3 mo Current Outpatient Medications on File Prior to Visit Medication Sig Dispense Refill albuterol 108 (90 Base) MCG/ACT inhaler inhale 2 puff by inhalation route every 4 hours as needed Ascorbic Acid (vitamin C) 250 MG tablet TAKE 1 TABLET BY MOUTH EVERY DAY WITH IRON TABLET 90 tablet3 Blood Pressure kit 1 kit in the morning. 1 kit 0 buPROPion SR (Wellbutrin SR) 100 MG 12 hr tablet Take 1 tablet by mouth every 12 (twelve) hours. cholecalciferol (Vitamin D-3) 50 MCG (2000 UT) capsule TAKE 1 CAPSULE BY MOUTH DAILY clotrimazole (Lotrimin) 1 % cream Apply topically 2 times daily. 60 g 1 Continuous Blood Gluc General Internal Medicine Doctor (FreeStyle Angi 2 [place]) device Use w/ sensor 1 each 0 Continuous Glucose Sensor (FreeStyle Angi 2 Sensor) [facility] USE 1 SENSOR EVERY 14 DAYS. 2 each 11 Diclofenac Sodium 1 % gel Apply topically every 8 (eight) hours. diphenhydrAMINE (BENADryl) 25 MG tablet TAKE 1-2 TABLETS BY MOUTH DAILY AT BEDTIME NEEDED 60 tablet 0 ferrous sulfate 325 (65 Fe) MG tablet TAKE 1 TABLET BY MOUTH EVERY DAY WITH VITAMIN C. DO NOT TAKE WITH DAIRY PRODUCTS OR THYROID MEDICINE 90 tablet 3 FLUoxetine (PROzac) 40 MG capsule TAKE 2 CAPSULES BY MOUTH EVERY DAY fluticasone (Flonase) 50 MCG/ACT nasal spray TAKE 1-2 SPRAYS EACH NOSTRIL 1-2 TIMES DAILY NEEDEDFOR ALLERGIES 48 mL 2 FreeStyle lancets USE 1 LANCET BY TO SKIN ROUTE 3 TIMES EVERY DAY FREESTYLE TEST STRIPS test strip TEST BLOOD SUGAR UP TO 3 TIMES A DAY EVERY DAY NEEDED DIRECTED 100 strip 3 glucagon 1 MG injection inject 1 mg by subcutaneous route once if unable to take sugar by mouth or if unconscious, repeat in 15min if inadequate response glucagon 1 MG/ML injection PLEASE SEE ATTACHED FOR DETAILED DIRECTIONS glucose-vitamin C 4-6 GM-MG oral gel take 4 tablets as needed for blood sugars <60 and/or symptoms of hypoglycemia, then recheck blood sugar 15 minutes later hydrocortisone (Anusol-HC) 2.5 % rectal cream apply by topical route 4 times every day to the affected area(s) levothyroxine (Synthroid, Levoxyl) 200 MCG tablet Take 1 tablet by mouth at bed time. levothyroxine (Synthroid, Levoxyl) 50 MCG tablet Take 1 tablet by mouth. Mometasone Furoate (Asmanex HFA) 100 MCG/ACT aerosol TAKE 1 PUFF BY MOUTH TWICE A DAY 13 g 1 montelukast (Singulair) 10 MG tablet TAKE 1 TABLET BY MOUTH EVERY DAY IN THE EVENING 90 tablet 3 omeprazole (PriLOSEC) [address] capsule TAKE 1 CAPSULE BY MOUTH TWICE A DAY BEFORE A MEAL 180 capsule 1 polyethylene glycol, PEG, 3350 (Glycolax) 17 GM/SCOOP powder take (17G) by oral route every day mixed with 8 oz. water, juice, soda, coffee or tea for constipation polyvinyl alcohol (Liquifilm Tears) 1.4 % ophthalmic solution apply 1-2 drops in both eyes 4-6 times per day semaglutide (Ozempic) 2 MG/1.5ML solution pen-injector Inject 1 mg under the skin 1 (one) time per week. 2 each 12 sennosides (Senokot) 8.6 MG tablet take 2 tablet by oral route every day as needed for constipation traZODone (Desyrel) 50 MG tablet TAKE 1 TABLET BY MOUTH EVERYDAY AT BEDTIME witch danny-glycerin (Tucks) pad Use as needed up to 4x/d 100 each 11 [DISCONTINUED] naproxen (Naprosyn) 500 MG tablet take 1 tablet by oral route 2 times every day withfood as needed for Pain No current facility-administered medications on file prior to visit. documented in this encounter Plan of Treatment Upcoming Encounters Date Type Department Care Team (Late st Contact Info) Description 02/04/2025 2:00 PM EDT Office Visit [facility] MEDICINE [address] [place] [address] Bernadine Ramos ANP [address] [place] [address] Scheduled Orders Name Type Priority Associated Diagnoses Orde r Schedule Albumin, Random Urine W/Creatinine Lab Routine Type 2 diabetes mellitus with hypoglycemia without coma, without long-term current use of insulin ([facility]) Expected: 11/03/2024 (Approximate), Expires: 11/03/2025 Lipid Panel, Standard Lab Routine Type 2 diabetes mellitus with hypoglycemia without coma, without long-term current use of insulin (CMS/HCC) Expected: 11/03/2024 (Approximate), Expires: 11/03/2025 Scheduled Referrals Name Type Priority Associated Diagnoses Orde r Schedule Referral to Podiatry Outpatient Referral Routine Type 2 diabetes mellitus with hypoglycemia without coma, without long-term current use of insulin (CMS/[facility]) Callus Dry skin Expected: 11/03/2024 (Approximate), Expires: 11/03/2025 documented as of this encounter Procedures Procedure Name Priority Date/Time Associated Diagnosis Comments POCT GLYCATED HEMOGLOBIN, TOTAL Routine 11/03/2024 2:32 PM EST Type 2 diabetes mellitus with hypoglycemia without coma, without long-term current use of insulin ([facility]) POCT GLUCOSE Routine 11/03/2024 2:26 PM EST Type 2 diabetes mellitus with hypoglycemia without coma, without long-term current use of insulin ([facility]) documented in this encounter Results * (ABNORMAL) POCT HGB A1C (11/03/2024 2:32 PM EST) Hemoglobin A1C 6.2(A) 4.0 - 6.0 % QC Media Lot # [id number] Lot# Expiration Date Blood 11/03/2024 2:32 PM EST us Bernadine ROBBINS POINT OF CARE TEST ENTER/EDIT OR DERABLES Final Result * POCT Glucose (11/03/2024 2:26 PM EST) Glucose Blood, POC 89 60 - 200 mg/dL QC Media Lot # [id number] Lot# Expiration Date [id number] Blood Capillary blood specimen / Unknown 11/03/2024 2:26 PM EST Bernadine ROBBINS POINT OF CARE TEST ENTER/EDIT OR DERABLES Final Result documented in this encounter Visit Diagnoses Diagnosis Encounter for immunization- Primary Type 2 diabetes mellitus with hypoglycemia without coma, without long-term current use of insulin ([facility]) Callus Corns and callosities Dry skin Other symptoms involving skin and integumentary tissues documented in this encounter Additional Health Concerns Assessment Noted Time PHQ-9 Depression Total Score: 8 06/23/20 24 10:48 AM EDT documented as of this encounter Care Teams Clearance Diver Relationship Specialty Start Date End Date Bernadine Ramos ANP [address] [place] [address] PCP - General Family Medicine 02/16/20 [facility] 07/11/15 documented as of this encounter
--- OUTSIDE RECORDS SUMMARY | 2024-11-11 12:22 | XMS_ITS | Encounter Summary ---
Author Organization [employer] Address [address] [facility] 7t [place] [address] Care Team Providers Care Insurance Underwriter Sales Name Role Phone Bernadine Ramos Primary Care Provider [phone] Reason for Visit * Reason Onset Date Comments Nurse Triage 10/20/2024 Encounter Details Date Type Department Care Team ([facility] st Contact Info) Description 10/20/2024 Telephone [facility] MEDICINE [address] [place] [address] Bernadine Ramos ANP [address] [place] [address] Nurse Triage Social History Tobacco Use Types [...] with others, in a hotel, in a custodial, living outside on the street, on a [...] - You have more questions Dolores Montano [facility] Clinical Support (supporting ITZEL Floyd)1 hour ago (2:13 PM) Call this number [phone] instead of the [phone] Oscar Luna routed conversation to [facility] Triage Nurse2 hours ago (1:26 PM) Dolores Montano [facility] Clinical Support (supporting ITZEL Floyd)3 hours [...] Description 02/04/2025 2:00 PM EDT Office Visit [facility] MEDICINE [address] [place] [address] Bernadine Ramos ANP [address] [place] [address] documented as of this encounter Visit Diagnoses Not on filedocumented in this encounter Additional Health Concerns Assessment Noted Time PHQ-9 Depression Total Score: 8 06/23/20 24 10:48 AM EDT documented as of this encounter Care Teams Insurance Underwriter Sales Relationship Specialty Start Date End Date Bernadine Ramos ANP [address] [place] [address] PCP - General Family Medicine 02/16/20 [facility] 07/11/15 documented as of this encounter
[2024-11-11 12:31] LABS: Cholesterol 192 mg/dL (<200); HDL Cholesterol 31 mg/dL (>40); LDL Cholesterol Calculated 125 mg/dL (<100); Triglycerides 182 mg/dL (<150)
[2024-11-11 12:48] LABS: Free T4 (Free Thyroxine) 1.23 ng/dL (0.71-1.85)
== END 2024-11-11 10:41 | disposition home or self-care (01) ==
LOC: HO.LAB 10:40
PROVIDERS: Absent Provider Nurse Practitioner Primary Care; PCP Nurse Practitioner Primary Care; Visit Provider Student in an Organized Health Care Education/Training Program
DX: E03.9 Hypothyroidism, unspecified (principal); E11.649 Type 2 diabetes mellitus with hypoglycemia without coma; R79.89 Other specified abnormal findings of blood chemistry
CPT/HCPCS: 36415; 80061; 84439; 84443; 99212

== ENCOUNTER 2024-11-11 15:36 | Outpatient (AMB) | payer MEDICAID, SELFPAY ==
[2024-11-11 15:47] VITALS: BP 108/70; PULSE 60; O2SAT 100; BMI 42.4
--- NOTE | 2024-11-11 15:47 | MHC.OFFVIS ---
Vital Signs 11/11/24 15:47 Height 5 ft 6 in Weight 262 lb 9.129 oz BMI 42.4 BP 108/70 Blood Pressure Location Lt brachial Position Sitting Pulse 60 Pulse Source Pulse Oximeter Pulse Oximetry (%) 100 Oxygen Delivery Method Room Air Intake Visit Reasons: Hypothyroidism Intake Note: Pt presents to the office today for hypothyroidism. Allergies Seasonal Allergies Allergy (Verified 11/11/24 15:50) Sneezing Medication List - Last Reconciled 11/11/24 by Madai Gibson MD albuterol sulfate 90 mcg/actuation 1 inh inhalation QID PRN albuterol sulfate 90 mcg/actuation (ProAir HFA) 2 puffs inhalation Q4-6H PRN ascorbic acid (vitamin C) 250 mg PO DAILY azelastine 1 spray intranasal BID bisacodyl (Dulcolax (bisacodyl)) 20 mg (4 x 5 mg) PO ONCE 1 day blood sugar diagnostic (FreeStyle Lite Strips) As directed blood-glucose meter (FreeStyle Lite Meter kit) As directed bupropion HCl SR (Wellbutrin SR) 100 mg PO BID cholecalciferol (vitamin D3) 50 mcg PO DAILY dextrose 4 grams PO Q15M diclofenac sodium-menthol 1.5-10 % 1 pkg topical DAILY diphenhydramine HCl (Benadryl) 25 mg PO BEDTIME PRN docusate sodium (Colace) 100 mg PO BID esomeprazole magnesium 40 mg PO DAILY famotidine 20 mg PO BEDTIME ferrous sulfate 325 mg PO DAILY flash glucose sensor (FreeStyle Angi 2 Sensor kit) As directed fluoxetine 80 mg PO DAILY fluticasone propionate 50 mcg/actuation (Flonase Allergy Relief) 2 sprays intranasal DAILY fluticasone propionate 110 mcg/actuation (Flovent HFA) 1 puff inhalation BID hydrocortisone 2.5% (Anusol-HC) 1 appl NV BID-QID PRN ipratropium bromide 2 sprays intranasal BID-TID levonorgestrel (Mirena) intrauterine levothyroxine 200 mcg PO DAILY levothyroxine 25 mcg PO DAILY methylcellulose (laxative) (Citrucel) 500 mg PO DAILY montelukast (Singulair) 10 mg PO BEDTIME polyethylene glycol 3350 17 grams PO DAILY polyethylene glycol 3350 (Miralax) 238 grams PO ONCE prednisone 40 mg (2 x 20 mg) PO DAILY risperidone 2 mg PO BEDTIME semaglutide (Ozempic) 1 mg subcut QWEEK sennosides (Senna Laxative) 17.2 mg (2 x 8.6 mg) PO BEDTIME trazodone 50 mg PO BEDTIME zinc acetate 50 mg PO .tiw HPI Comments Details: 34 YO Female with a PMHx of Graves disease status post total thyroidectomy when she was 17 years old, now with post surgical Hypothyroidism who is seen in F/U for hypothyroidism . Prior HPI She has a longstanding history of hypothyroidism with TSH >100. She initially reported good compliance, so she completed a levothyroxine abosorption test in our office in 2021. This revealed no issues with absorption as her FT4 raised appropriately. She then admitted to noncompliance with her medication. She then was compliant with tirosint 175 mcg PO daily and TSH improved significantly, but TSH remained approximately 10. Her dose of levothyroxine was increased to 250 mcg PO daily. She reports good compliance TSH was low recently in 2022 and levothyroxine was decreased to 200 mcg She was also diagnosed with reactive hypoglycemia based on her 4 hour OGTT revealing decline in her blood sugar from 149 to 66 at the 3-4 hour time point. She was recommended to follow a very low carbohydrate diet and reports hypoglycemia has resolved with this. Interval history 08/13/24 Labs 08/12/24 showed TSH of >100 and fee T4 <0.42 Patient tells me she has a nurse who observes her take 200 mcg of levothyroxine daily , around 9 AM, waits an hour before eats breakfast or drinks coffee Was on turlicity for the past year for weigth management and type 2 DM Started Ozempic currenlty on 1 mg weekly started in June or July 2024 Weight down by 20 lbs in the past month She is also taking omeprazole 40 mg daily at the same as her thyroid medication She is denying any fatigue , no cold intolerance , having diarrhea and rectal bleeding concerning for colitis saw GI pending EGD and colonoscopy in November 2023, reporting hair loss LMP 08/02/24, periods are regular Currently not sexually active, has IUD Interval history 11/12/23 08/13/2024: Levothyroxine increased to 225 mcg daily by taking 200+ 25 mcg pills daily 11/11/2024: TSH 60, free T4 1.23 Lost 15 lbs since Aug 2024 Reports still strict adherence it from OZempic Pending EGD and colonoscopy November 24 Physical exam General: sitting comfortably in no acute distress HEENT: normocephalic/atraumatic, moist oral mucosa Neck: supple, symmetrical, no thyromegaly, surgical scar noted Cardiac: normal heart sounds Pulm: normal breath sounds B/L, no added breath sounds Abd: not distended, no tenderness Extremities: no edema, no signs of myxedema Neuro: AAO x3, Speech: normal, no facial droop, moving all 4 extremities Labs: Laboratory Tests 11/02/22 11/02/22 11/02/22 07:49 07:49 07:49 Sodium 140 Potassium 3.9 Creatinine 0.69 Estimated GFR > 60 Hemoglobin A1c % 6.0 Glucose Tolerance Insulin Level 22 Proinsulin C-Peptide Beta-Hydroxybutyrate/Acetoacetate TSH 0.62 Free T4 1.25 DHEA Sulfate Insulin-like GF II Random Cortisol ACTH 34 11/02/22 11/02/22 11/02/22 07:49 07:49 07:50 Sodium Potassium Creatinine Estimated GFR Hemoglobin A1c % Glucose Tolerance Insulin Level Proinsulin 16.4 C-Peptide 3.53 Beta-Hydroxybutyrate/Acetoacetate 0.05 TSH Free T4 DHEA Sulfate 85 Insulin-like GF II 458 Random Cortisol 9.2 ACTH Laboratory Tests 12/13/23 08/12/24 11:25 15:43 TSH 1.16 > 100.00 H Free T4 0.94 < 0.42 L Laboratory Tests 08/12/24 11/11/24 15:43 10:49 TSH > 100.00 H 60.00 H Free T4 < 0.42 L 1.23 PFSH Medical History Reactive hypoglycemia Hypoglycemia Constipation Post-surgical hypothyroidism Elevated liver enzymes Varicose veins of bilateral lower extremities with other complications Obstructive sleep apnea Rheumatoid arthritis Depression ADHD Hypothyroid Morbid obesity Surgical History H/O prior ablation treatment (~2017) History of vein stripping (~2018) Hx of thyroidectomy Family History Father No problems noted. Mother No problems noted. Brother No problems noted. Brother No problems noted. Brother No problems noted. Other No family history of cancer Social History Household Members: Family Household Members Other:: parents Housing: House Are you a primary health care marketing manager to a significant other at home: No Do you presently have visiting nurse or other home services: Yes Alcohol intake: never Patient Tobacco Use Status: Never used Tobacco service: No Current occupational status: disabled Female Reproductive History Menstrual Age of Menarche: 13 Assessment & Plan Assessment & Plan (1) Hypothyroid: Code(s): E03.9 - Hypothyroidism, unspecified Category: Medical Qualifiers: Hypothyroidism type: acquired Qualified Code(s): E03.9 - Hypothyroidism, unspecified Plan: 34-year-old female with past medical history significant for Graves disease status post total thyroidectomy when she was 17 years old, now with postsurgical hypothyroidism who is coming today for follow up. She is currently on 225 mcg of levothyroxine daily. She has had previous issues with non adherence to the medication resulting in consistently elevated TSH levels of greater than 100. Labs from December 2023 showed she was biochemically euthyroid on the 200 mcg of levothyroxine with a TSH of 1.16 and free T4 of 0.94, then labs from 08/12/2024 show her TSH is greater than 100 and free T4 is less than 0.42. Her weight based dosing currently comes to 200 mcg of levothyroxine daily. 08/13/2024: Levothyroxine increased to 225 mcg daily by taking 200+ 25 mcg pills daily 11/11/2024: TSH 60, free T4 1.23 She is promising me that she is taking her medication every day and she has a nurse who monitors medication administration from Saturday to Saturday and then her father who is also her FORDER OPERATOR on Saturday and Saturday. I discussed with her importance of compliance to medication as high TSH can result in myxedema coma and . Patient endorsed that she realizes the importance of taking medication regularly and she has been taking it regularly. Other factors that could potentially result in malabsorption of the medication include that recently she has been having rectal bleeding, potentially she could have IBD/colitis, she is pending workup with GI and is scheduled to undergo endoscopy and colonoscopy in November 25 2023. She has lost 15 lb since August 2024 on top of the 20 lb that she had lost when she saw me last in August 2024 over the past month when her medication was switched from Trulicity to Ozempic which she is taking for type 2 diabetes mellitus and weight management. Ozempic could theoretically cause some affect on absorption as well. Hence I will increase her dose for now. in again stressed on the importance of taking levothyroxine on empty stomach 1st thing in the morning and wait at least an hour before she eats or drinks coffee. Plan: -increase levothyroxine to 250 mcg daily (200+ 50 mcg pill) -repeat blood work in 6 weeks -follow up in 12 weeks (2) Elevated TSH: Code(s): R79.89 - Other specified abnormal findings of blood chemistry Category: Medical Plan: See above Plan see above Orders: Orders Thyroid Stimulating Hormone 6 Weeks E03.9 - Hypothyroidism, unspecified Free T4 (Free Thyroxine) 6 Weeks E03.9 - Hypothyroidism, unspecified Medications: New levothyroxine Take with 200 mcg capsule daily for a total 250 mcg daily 50 mcg PO DAILY 30 tabs 4RF Changed From levothyroxine Take with 25 mcg capsule daily for a total 225 mcg daily 200 mcg PO DAILY 30 caps 8RF To levothyroxine Take with 50 mcg capsule daily for a total 250 mcg daily 200 mcg PO DAILY 30 caps 8RF Discontinued levothyroxine Take with 200 mcg capsule daily for a total 225 mcg daily Discontinued Reason: Doctor's Order 25 mcg PO DAILY 30 caps 8RF Patient Instructions: Increase levothyroxine to 250 mcg daily by taking 200 mcg and 50 mcg tablets daily Do blood work in 6 weeks, we will reach out with the results Follow up in 3 months Coding Level of Care Code Est Pt Level 4 (73151) Diagnoses Acquired hypothyroidism E03.9 Hypothyroidism type: acquired Elevated TSH R79.89
--- OUTSIDE RECORDS SUMMARY | 2024-11-11 18:17 | XMS_ITS | Encounter Summary ---
Author Organization [employer] Address [address] [facility] 7[address] [place] [address] Care Team Providers Care Membership Advisor Name Role Phone Bernadine Ramos Primary Care Provider [phone] Reason for Visit * Reason Onset Date Comments Care Management 10/16/2024 [facility]- chart revi ew Encounter Details Date Type Department Care Team ([facility] st Contact Info) Description 10/16/2024 Telephone [facility] [address] [place] [address] Schuyler Anand RN [address] [place] [address] Care Management (CM- chart review) Social History [...] with others, in a hotel, in a alf, living outside on the street, on a [...] fatigue, and Type 2 DM. Specialists include [facility] GI (visit scheduled 10/21/24), [facility] General Surgery, PT, Podiatry, [facility] Endo, and Nutrition. Patient receiving VNA services from [facility]. ED visits within the last 12 months include [facility]ED 10/15/24 and [facility] ED 08/22/24. Last appointment in PCP office on 06/23/24. Next appointment scheduled for 11/03/24 at 2:15pm. documented in this encounter Plan of Treatment Upcoming Encounters Date Type Department Care Team (Late st Contact Info) Description 02/04/2025 2:00 PM EDT Office Visit [facility] [address] [place] [address] Bernadine Ramos ANP [address] [place] [address] documented as of this encounter Visit Diagnoses Not on filedocumented in this encounter Additional Health Concerns Assessment Noted Time PHQ-9 Depression Total Score: 8 06/23/20 24 10:48 AM EDT documented as of this encounter Care Teams Membership Advisor Relationship Specialty Start Date End Date Bernadine Ramos ANP [address] [place] [address] PCP - General Family Medicine 02/16/[address] [facility] 07/11/15 documented as of this encounter
--- OUTSIDE RECORDS SUMMARY | 2024-11-11 18:17 | XMS_ITS | Encounter Summary ---
Author Organization [employer] Address [address] [facility] [address] [place] [address] Care Team Providers Care Electrical Integrator Name Role Phone Bernadine Ramos Primary Care Provider [phone] Reason for Visit * Reason Comments Med Refill Encounter Details Date Type Department Care Team (Late st Contact Info) Description 10/14/2024 Refill [facility] [address] [place] [address] Bernadine Ramos ANP [address] [place] [address] Iron deficiency anemia, unspecified iron deficiency anemia [...] with others, in a hotel, in a half-way, living outside on the street, on a [...] Description 02/04/2025 2:00 PM EDT Office Visit [facility] [address] [place] [address] Bernadine Ramos ANP [address] [place] [address] documented as of this encounter Visit Diagnoses Diagnosis Iron deficiency anemia, unspecified iron deficiency anemia type documented in this encounter Additional Health Concerns Assessment Noted Time PHQ-9 Depression Total Score: 8 06/23/20 24 10:48 AM EDT documented as of this encounter Care Teams Electrical Integrator Relationship Specialty Start Date End Date Bernadine Ramos ANP [address] [place] [address] PCP - General Family Medicine 02/16/20 [facility] 07/11/15 documented as of this encounter
--- OUTSIDE RECORDS SUMMARY | 2024-11-11 18:17 | XMS_ITS | Encounter Summary ---
Author Organization [employer] Address [address] 7[address] [place] [address] Care Team Providers Care Carroter Name Role Phone Bernadine Ramos Primary Care Provider [phone] Encounter Details Date Type Department Care Team [...] with others, in a hotel, in a assisted, living outside on the street, on a [...] Description 02/04/2025 2:00 PM EDT Office Visit [facility] [address] [place] [address] Bernadine Ramos ANP [address] [place] [address] documented as of this encounter Visit Diagnoses Not on filedocumented in this encounter Additional Health Concerns Assessment Noted Time PHQ-9 Depression Total Score: 8 06/23/20 24 10:48 AM EDT documented as of this encounter Care Teams Carroter Relationship Specialty Start Date End Date Bernadine Ramos ANP [address] [place] [address] PCP - General Family Medicine 02/16/20 [facility] 07/11/15 documented as of this encounter
--- OUTSIDE RECORDS SUMMARY | 2024-11-11 18:17 | XMS_ITS | Encounter Summary ---
Author Organization [employer] Address [address] [facility] 7t [place] [address] Care Team Providers Care Electrical Line Worker Name Role Phone Vazquez Louis Primary Care Provider [phone] Encounter Details Date Type Department Care Team (Late st Contact Info) Description 10/15/2024 Orders Only [facility] External Provider, [facility] Social History Tobacco Use Types Packs/Day Years [...] with others, in a hotel, in a snf, living outside on the street, on a [...] Description 02/04/2025 2:00 PM EDT Office Visit [facility] [address] [place] [address] Vazquez Louis ANP [address] [place] [address] documented as of this encounter Procedures Procedure Name Priority Date/Time Associated Diagnosis Comments CT HEAD WO CONTRAST Routine 10/15/2024 6 :11 PM EST documented in this encounter Results * CT Head w/o Contrast (10/15/2024 6:11 PM EST) Anatomical Region Laterality Modality Head, Neck Computed Tomogra phy 10/15/2024 6:11 PM EST Narrative 10/15/2024 6:13 PM EST ? [facility] ?[address] ?[place] [address] ? CT Scan Report ? Signed ? Patient: Dolores Baltazar ?MR#: [id number] ?? [id number] ? : 1990 ?Acct:[id number] ? Age/Sex: 34 / F ?ADM Date: 02/13/25 ? Loc: HO.ED ? Attending Dr: ? Ordering Physician: Sayda Sanders NP ?? Date of Service: 10/15/24 ?? Procedure(s): CT head/brain wo IV con ?? Accession Number(s): [id number] ? cc: VAZQUEZ LOUIS SLEEPING CAR SERVICE ATTENDANT; Sayda Sanders NP ? Report Number: ?? [id number]: Total DLP = ??616.00 mGy-cm ? CLINICAL [...] DD/ 1811 ? TD/TT: 10/15/24 1811 ? Lightning Protection Installer: ? Procedure Note [facility] - 10/15/[address] [place] [address] [address] Scan Report Signed Patient: Lou Baltazar#: [id number] : 1990Acct:[id number] Age/Sex: 34 / FADM Date: 10/15/24 Loc: HO.ED Attending Dr: Ordering Physician: Sayda Sanders NP Date of Service: 10/15/24 Procedure(s): CT head/brain wo IV con Accession Number(s): [id number] cc: VAZQUEZ LOUIS SLEEPING CAR SERVICE ATTENDANT; Sayda Sanders NP Report Number: [id number]: Total DLP = 616.00 mGy-cm CLINICAL HISTORY: [...] in OV> 10/15/241811 DD/ 10 TD/TT: 10/15/241810 Lightning Protection Installer: [facility] External Provider IMG CT PROCEDURES Edited Result - Final documented in this encounter Visit Diagnoses Not on filedocumented in this encounter Additional Health Concerns Assessment Noted Time PHQ-9 Depression Total Score: 8 06/23/20 24 10:48 AM EDT documented as of this encounter Care Teams Electrical Line Worker Relationship Specialty Start Date End Date Vazquez Louis ANP [address] [place] [address] PCP - General Family Medicine 02/16/20 [facility] 07/11/15 documented as of this encounter
--- OUTSIDE RECORDS SUMMARY | 2024-11-11 18:17 | XMS_ITS | Encounter Summary ---
Author Organization [employer] Address [address] [facility] 7t [place] [address] Care Team Providers Care Train Operator Name Role Phone Bernadine Ramos Primary Care Provider [phone] Reason for Visit * Reason Onset Date Comments Nurse Triage 10/20/2024 Encounter Details Date Type Department Care Team ([facility] st Contact Info) Description 10/20/2024 Telephone [facility] [address] [place] [address] Bernadine Ramos ANP [address] [place] [address] Nurse Triage Social History Tobacco Use Types [...] with others, in a hotel, in a residential, living outside on the street, on a [...] - You have more questions Dolores Montano [facility] Clinical Support (supporting ITZEL Floyd)1 hour ago (2:13 PM) Call this number [phone] instead of the [phone] Oscar Luna routed conversation to [facility] Triage Nurse2 hours ago (1:26 PM) Dolores Montano [facility] Clinical Support (supporting ITZEL Floyd)3 hours [...] 02/04/2025 2:00 PM EDT Office Visit [facility] [address] [place] [address] Bernadine Ramos ANP [address] [place] [address] documented as of this encounter Visit Diagnoses Not on filedocumented in this encounter Additional Health Concerns Assessment Noted Time PHQ-9 Depression Total Score: 8 06/23/20 24 10:48 AM EDT documented as of this encounter Care Teams Train Operator Relationship Specialty Start Date End Date Bernadine Ramos ANP [address] [place] [address] PCP - General Family Medicine 02/16/20 [facility] 07/11/15 documented as of this encounter
--- OUTSIDE RECORDS SUMMARY | 2024-11-11 18:17 | XMS_ITS | Encounter Summary ---
Author Organization [facility] Address [address] [place] [address] Phone Care Team Providers Care Mat Cleaning Machine Operator Name Role Phone Austyn Lane MD Primary Care Provider [phone] Encounter Details Date Type Department Care Team (Late st Contact Info) Description 04/06/2013 Documentation [facility] Family Medicine [address] [place] [address] Family Medicine, Physician [address] [place], [place] [id number] Social History Tobacco Use Types Packs/Day Years [...] on filedocumented in this encounter Care Teams Mat Cleaning Machine Operator Relationship Specialty Start Date End Date Austyn Lane MD [address] [place] [address] TATE Webb [address] PCP - General 04/12/17 11/14/22 documented as of this encounter
--- OUTSIDE RECORDS SUMMARY | 2024-11-11 18:17 | XMS_ITS | Encounter Summary ---
Author Organization [facility] Address [address] [place] [address] Phone Care Team Providers Care Wind Science And Planning Name Role Phone Austyn Lane MD Primary Care Provider [phone] Encounter Details Date Type Department Care Team (Late st Contact Info) Description 09/29/2012 Documentation [facility] Family Medicine [address] [place] [address] Family Medicine, Physician [address] [place], [place] [id number] Social History Tobacco Use Types Packs/Day Years [...] on filedocumented in this encounter Care Teams Wind Science And Planning Relationship Specialty Start Date End Date Austyn Lane MD [address] [place] [address] TATE Webb [address] PCP - General 04/12/17 11/14/22 documented as of this encounter
--- OUTSIDE RECORDS SUMMARY | 2024-11-11 18:17 | XMS_ITS | Clinical Summary ---
Author Organization [facility] Address [address] [place] [address] Phone Care Team Providers Care Economic Research Assistant Name Role Phone Unavailable Primary Care Provider [...] complete this topic Procedures * Due to [place] state law, this organization might not be sharing sensitive test results. Procedure Name Priority Date/Time Associated Diagnosis Comments CHLAMYDIA AND GONORRHEA, AMPLIFIED Routine 08/08/2010 1:32 PM EST from Last 3 Months or Most Recently Relevant to Health Maintenance Results * Due to [place] state law, this organization might not be sharing sensitive test results. * Chlamydia and Gonorrhoea, Amplified (08/08/2010 1:32 PM EST) Pathologist [facility] URINE CHLAMYDIA AMP PROBE NEGATIVE [facility] Comment: NO CHLAMYDIA TRACHOMATIS RNA DETECTED IN THIS PATIENT'S SAMPLE. ? (REFERENCE RANGE/NORMAL VALUE: NOT DETECTED) ? URINE GC AMP PROBE NEGATIVE [facility] Comment: NO NEISSERIA GONORRHOEAE RNA DETECTED IN THIS PATIENT'S SAMPLE. ? (REFERENCE RANGE/NORMAL VALUE: NOT DETECTED) ? NOTE: THIS TEST USES PLASTER HELPER MEDIATED AMPLIFICATION METHOD TO DETECT rRNA FROM [...] [facility] [address] [place] [address], [place] from Last 3 Months or Most Recently Relevant to Health Maintenance
--- OUTSIDE RECORDS SUMMARY | 2024-11-11 18:17 | XMS_ITS | Encounter Summary ---
Author Organization [employer] Address [address] [facility] [address] [place] [address] Care Team Providers Care Data Network Architect Name Role Phone Bernadine Ramos Primary Care Provider [phone] Reason for Visit * Reason Onset Date Comments Chart Prep 11/02/2024 Encounter Details Date Type Department Care Team ([facility] st Contact Info) Description 11/02/2024 Telephone [facility] [address] [place] [address] Bernadine Ramos ANP [address] [place] [address] Chart Prep Social History Tobacco Use Types [...] Description 02/04/2025 2:00 PM EDT Office Visit [facility] [address] [place] [address] Bernadine Ramos ANP [address] [place] [address] documented as of this encounter Visit Diagnoses Not on filedocumented in this encounter Additional Health Concerns Assessment Noted Time PHQ-9 Depression Total Score: 8 06/23/20 24 10:48 AM EDT documented as of this encounter Care Teams Data Network Architect Relationship Specialty Start Date End Date Bernadine Ramos ANP [address] [place] [address] PCP - General Family Medicine 02/16/20 [facility] 07/11/15 documented as of this encounter
--- OUTSIDE RECORDS SUMMARY | 2024-11-11 18:17 | XMS_ITS | Encounter Summary ---
Author Organization [employer] Address [address] [place] [address] 7[address] [place] [address] Care Team Providers Care Heavy Truck Driver Name Role Phone Bernadine Ramos Primary Care Provider Reason for Visit * Reason Comments Med Refill Encounter Details Date Type Department Care Team (Late st Contact Info) Description 03/21/2023 Refill [facility] MEDICINE [address] [place] [phone] Bernadine Ramos ANP [address] [place] [address] [phone] Heartburn Social History Tobacco Use Types Packs/Day [...] Description 02/04/2025 2:00 PM EDT Office Visit [facility] MEDICINE [address] [place] [phone] Bernadine Ramos ANP [address] [place], [place] [phone] documented as of this encounter Visit Diagnoses Diagnosis Heartburn documented in this encounter Additional Health Concerns Assessment Noted Time PHQ-9 Depression Total Score: 0 03/19/20 23 2:00 PM EDT documented as of this encounter Care Teams Heavy Truck Driver Relationship Specialty Start Date End Date Bernadine Ramos ANP [address] [place] [address] PCP - General Family Medicine 02/16/20 [facility] 07/11/15 documented as of this encounter
--- OUTSIDE RECORDS SUMMARY | 2024-11-11 18:17 | XMS_ITS | Encounter Summary ---
Author Organization [employer] Address [address] [facility] 7t [place] [address] Care Team Providers Care Manufacturing Engineering Manager Name Role Phone Bernadine Ramos Primary Care Provider [phone] Reason for Visit * Reason Onset Date Comments FYI 03/22/2023 Encounter Details Date Type Department Care Team ([facility] st Contact Info) Description 03/22/2023 Telephone [facility] MEDICINE [address] [place] [address] Bernadine Ramos ANP [address] [place] [address] FYI Social History Tobacco Use Types Packs/Day [...] - 03/22/2023 2:39 PM EDT Tc from [place] with [facility] stating will be renewing pt care of plan on March 27 will be seeing pt 5 x a week for medication. documented in this encounter Plan of Treatment Upcoming Encounters Date Type Department Care Team (Late st Contact Info) Description 02/04/2025 2:00 PM EDT Office Visit [facility] MEDICINE [address] [place] [address] Bernadine Ramos ANP [address] [place] [address] documented as of this encounter Visit Diagnoses Not on filedocumented in this encounter Additional Health Concerns Assessment Noted Time PHQ-9 Depression Total Score: 0 03/19/20 23 2:00 PM EDT documented as of this encounter Care Teams Manufacturing Engineering Manager Relationship Specialty Start Date End Date Bernadine Ramos ANP [address] [place] [address] PCP - General Family Medicine 02/16/20 [facility] 07/11/15 documented as of this encounter
--- OUTSIDE RECORDS SUMMARY | 2024-11-11 18:17 | XMS_ITS | Encounter Summary ---
Author Organization [facility] Address [address] [place] [address] Phone Care Team Providers Care Chili Pepper Grinder Name Role Phone Austyn Lane MD Primary Care Provider [phone] Encounter Details Date Type Department Care Team (Late st Contact Info) Description 12/21/2011 Documentation [facility] [address] [place] [address] Family Medicine, Physician [address] [place], [place] [phone] Social History Tobacco Use Types Packs/Day Years [...] on filedocumented in this encounter Care Teams Chili Pepper Grinder Relationship Specialty Start Date End Date Austyn Lane MD [address] [place] [address] T[place] [address] PCP - General 04/12/17 11/14/22 documented as of this encounter
--- OUTSIDE RECORDS SUMMARY | 2024-11-11 18:17 | XMS_ITS | Encounter Summary ---
Author Organization [facility] Address [address] [place] [address] Phone Care Team Providers Care Cleaning Porter Name Role Phone Austyn Lane MD Primary Care Provider [phone] Encounter Details Date Type Department Care Team (Late st Contact Info) Description 11/10/2009 Documentation [facility] [address] [place] [address] Family Medicine, Physician [address] [place], [place] [phone] Social History Tobacco Use Types Packs/Day Years [...] on filedocumented in this encounter Care Teams Cleaning Porter Relationship Specialty Start Date End Date Austyn Lane MD [address] [place] [address] TATE Webb [address] PCP - General 04/12/17 11/14/22 documented as of this encounter
--- OUTSIDE RECORDS SUMMARY | 2024-11-11 18:17 | XMS_ITS | Encounter Summary ---
Author Organization [employer] Address [address] [place] [address] 7t [place] [address] Care Team Providers Care Trucker Name Role Phone Bernadine Ramos Primary Care Provider [phone] Encounter Details Date Type Department Care Team (Late st Contact Info) Description 05/29/2023 Orders Only [facility] MEDICINE [address] [place] [address] [phone] Provider, MD Estephanie Social History Tobacco Use [...] Description 02/04/2025 2:00 PM EDT Office Visit [facility] MEDICINE [address] [place] [address] [phone] Bernadine Ramos ANP [address] [place], [place] [phone] documented as of this encounter Procedures Procedure [...] documented as of this encounter Care Teams Trucker Relationship Specialty Start Date End Date Bernadine Ramos ANP [address] [place] [address] PCP - General Family Medicine 02/16/20 [facility] 07/11/15 documented as of this encounter
--- OUTSIDE RECORDS SUMMARY | 2024-11-11 18:17 | XMS_ITS | Encounter Summary ---
Author Organization [facility] Address [address] [place] [address] Phone Care Team Providers Care Test Analyst Name Role Phone Austyn Lane MD Primary Care Provider [phone] Encounter Details Date Type Department Care Team (Late st Contact Info) Description 12/01/2012 [place] [facility] [place] [address] [place] [address] Family Medicine, Physician [address] [place], [place] [phone] Social History Tobacco Use Types Packs/Day Years [...] on filedocumented in this encounter Care Teams Test Analyst Relationship Specialty Start Date End Date Austyn Lane MD [address] [place] [address] TATE Webb [address] PCP - General 04/12/17 11/14/22 documented as of this encounter
--- OUTSIDE RECORDS SUMMARY | 2024-11-11 18:17 | XMS_ITS | Encounter Summary ---
Author Organization [employer] Address [address] [facility] 7t [place] [address] Care Team Providers Care Data Collection Technician Name Role Phone Bernadine Ramos Primary Care Provider [phone] Reason for Visit * Reason Comments Care Coordination CM/CHW appt Encounter Details Date Type Department Care Team (Latest Contact Info) Description 10/28/2024 Patient Outreach [facility] MEDICINE [address] [place] [address] Bernadine Ramos ANP [address] [place] [address] Care Coordination (CM/CHW appt) Social History Tobacco [...] Description 02/04/2025 2:00 PM EDT Office Visit [facility] MEDICINE [address] [place] [address] Bernadine Ramos ANP [address] [place] [address] documented as of this encounter Visit Diagnoses Not on filedocumented in this encounter Additional Health Concerns Assessment Noted Time PHQ-9 Depression Total Score: 8 06/23/20 10:48 AM EDT documented as of this encounter Care Teams Data Collection Technician Relationship Specialty Start Date End Date Bernadine Ramos ANP [address] [place] [address] PCP - General Family Medicine 02/16/20 [facility] 07/11/15 documented as of this encounter
--- OUTSIDE RECORDS SUMMARY | 2024-11-11 18:17 | XMS_ITS | Encounter Summary ---
Author Organization [facility] Address [address] [place] [address] Phone Care Team Providers Care Mixer Lever Operator Name Role Phone Austyn Lane MD Primary Care Provider [phone] Encounter Details Date Type Department Care Team (Late st Contact Info) Description 09/26/2012 Documentation [facility] [place] [address] [place] [address] Family Medicine, Physician [address] [place], [place] [phone] Social History Tobacco Use Types Packs/Day Years [...] on filedocumented in this encounter Care Teams Mixer Lever Operator Relationship Specialty Start Date End Date Austyn Lane MD [address] [place] [address] T[place] Webb [address] PCP - General 04/12/17 11/14/22 documented as of this encounter
--- OUTSIDE RECORDS SUMMARY | 2024-11-11 18:17 | XMS_ITS | Encounter Summary ---
Author Organization [employer] Address [address] [place] [address] 7t [place] [address] Care Team Providers Care Professor Of Physical Education Name Role Phone Bernadine Ramos Primary Care Provider [phone] Reason for Referral * Consultation (Routine) - Authorized Specialty Diagnoses / Procedures Referred By Kaden valle Referred To Contact Podiatry Diagnoses Type 2 diabetes mellitus with hypoglycemia without coma, without long-term current use of insulin (CMS/HCC) Callus Dry skin Bernadine Ramos ANP [address] [place] [address] Phone: tel: fax: Ismael Paige DPM [address] [facility] [address] [place] [address] Phone: tel: fax: Referral ID Status Reason Start Date Expiration Date Visits Requested Visits Authorized [id number] Authorized Specialty Services Required 11/04/2024 11/04/2025 6 6 Reason for Visit * Reason Comments Diabetes Encounter Details Date Type Department Care Team (Late st Contact Info) Description 11/03/2024 2:15 PM EST Office Visit [facility] MEDICINE [address] [place] [address] Bernadine Ramos ANP [address] [place] [address] Encounter for immunization (Primary Dx); Type 2 [...] with others, in a hotel, in a mcc, living outside on the street, on a [...] coma, without long-term current use of insulin ([facility]) Lab Results Component Value Date [...] to Podiatry; Future Other orders - Cancel: Motor2 COVID-19 Vaccine 12+ Follow Up: 3 mo [...] daily. 60 g 1 Continuous Blood Gluc Store Detective (FreeStyle Angi 2 [place]) device Use w/ sensor 1 each 0 Continuous Glucose Sensor (FreeStyle Angi 2 Sensor) [facility] USE 1 SENSOR EVERY 14 DAYS. 2 [...] Description 02/04/2025 2:00 PM EDT Office Visit [facility] MEDICINE [address] [facility] [place] [address] Bernadine Ramos ANP [address] [place] [address] Scheduled Orders Name Type Priority Associated Diagnoses [...] use of insulin (CMS/HCC) Callus Dry skin Expected: 11/03/2024 (Approximate), Expires: 11/03/2025 documented as of this encounter Procedures Procedure Name Priority Date/Time Associated Diagnosis Comments LIPID PANEL, STANDARD Routine 11/11/2024 10:49 AM EDT Type 2 diabetes mellitus with hypoglycemia without coma, without long-term current use of insulin (CMS/HCC) POCT GLYCATED HEMOGLOBIN, TOTAL Routine 11/03/2024 2:32 PM EST Type 2 diabetes mellitus with hypoglycemia without coma, without long-term current use of insulin (CMS/HCC) POCT GLUCOSE Routine 11/03/2024 2:26 PM EST Type 2 diabetes mellitus with hypoglycemia without coma, without long-term current use of insulin (CMS/HCC) documented in this encounter Results * (ABNORMAL) Lipid Panel, Standard (11/11/2024 10:49 AM EDT) Triglycerides 182(H) <150 mg/dL [facility] Comment:Desirable Triglyceri de: less than 150 mg/dLBorderline High Triglyceride 150-199 mg/dLHigh Triglyceride: 200-499 mg/dLVery High Triglyceride: greater than or equal to 5OO mg/dL Cholesterol 192 <200 mg/dL [facility] Comment:Desirable Cholestero l: less than 200 mg/dLBorderline High Cholesterol: 200-239 mg/dLHigh Cholesterol: greater than 239 mg/dL LDL Cholesterol Calculated 125(H) <100 mg/dL [facility] Comment:Desirable LDL: less than 100 mg/dLNear Optimal/Above Optimal LDL: 110- 129 mg/dLBorderline High LDL: 130-159 mg/dLHigh LDL: 160-189 mg/dLVery High LDL: greater than or equal to 190 mg/dL HDL Cholesterol 31(L) >40 mg/dL [facility] Comment:Desirable HDL: great er than 40 mg/dL Note: This HDL assay may give artificially low results in patients with liver disease. Blood Venous blood specimen / Unknown 11/11/2024 10:49 AM EDT 11/11/2024 10:49 AM EDT us Bernadine Ramos ANP LAB BLOOD ORDERABLES Final Resul t [facility] [address] [place] [address] [phone] * (ABNORMAL) POCT HGB A1C (11/03/2024 2:32 PM EST) Hemoglobin A1C 6.2(A) 4.0 - 6.0 % QC Media Lot # [id number] Lot# Expiration Date Blood 11/03/2024 2:32 PM EST us Bernadine Ramos ANP POINT OF CARE TEST ENTER/EDIT OR DERABLES Final Result * POCT Glucose (11/03/2024 2:26 PM EST) Glucose Blood, POC 89 60 - 200 mg/dL QC Media Lot # [id number] Lot# Expiration Date ,025 Blood Capillary blood specimen / Unknown 11/03/2024 2:26 PM EST Bernadine Ramos ANP POINT OF CARE TEST ENTER/EDIT OR DERABLES Final Result documented in this encounter Visit Diagnoses Diagnosis Encounter for immunization- Primary Type 2 diabetes mellitus with hypoglycemia without coma, without long-term current use of insulin ([facility]) Callus Corns and callosities Dry skin Other symptoms involving skin and integumentary tissues documented in this encounter Additional Health Concerns Assessment Noted Time PHQ-9 Depression Total Score: 8 06/23/20 24 10:48 AM EDT documented as of this encounter Care Teams Professor Of Physical Education Relationship Specialty Start Date End Date Bernadine Ramos, ITZEL [address] [place] [address] PCP - General Family Medicine 02/16/20 [facility] 07/11/15 documented as of this encounter
--- OUTSIDE RECORDS SUMMARY | 2024-11-11 18:17 | XMS_ITS | Encounter Summary ---
Author Organization [facility] Address [address] [place] [address] Phone Care Team Providers Care Research Engineer Marine Equipment Name Role Phone Austyn Lane MD Primary Care Provider [phone] Encounter Details Date Type Department Care Team (Late st Contact Info) Description 04/18/2017 Conversion Encounter [facility] [address] [facility] [place] [address] Social History Tobacco Use Types Packs/Day Years [...] on filedocumented in this encounter Care Teams Research Engineer Marine Equipment Relationship Specialty Start Date End Date Austyn Lane MD [address] [facility] [place] [address] PCP - General 04/12/17 11/14/22 documented as of this encounter
--- OUTSIDE RECORDS SUMMARY | 2024-11-11 18:17 | XMS_ITS | Clinical Summary ---
Author Organization [employer] Address [address] [facility] [address]t [place] [address] Care Team Providers Care It Security Engineer Name Role Phone Vazquez Louis Primary Care Provider [phone] Allergies No known active allergies Medications albuterol [...] 60 tablet 023 Active Continuous Blood Gluc Public Improvement Inspector (FreeStyle Angi 2 [place]) deviceIndicatio ns:Type 2 diabetes mellitus with hypoglycemia [...] coma, without long-term current use of insulin ([facility]) Inject 1 mg under the skin 1 (one) time per week. 2 each 12 Active Continuous Glucose Sensor (FreeStyle Angi 2 Sensor) miscIndications :Type 2 diabetes mellitus with hypoglycemia without coma, without long-term current use of insulin (CMS/[facility]),Hypog lycemia USE 1 SENSOR EVERY 14 [...] Encounters Date Type Department Care Team Description 11/11/2024 Orders Only GENERIC EXTERNAL DATA DEPARTMENT Provider, Generic External Data 11/03/2024 2:15 PM EST Office Visit [address] [address] Vazquez Louis ANP Encounter for immunization (Primary Dx); Type 2 diabetes mellitus with hypoglycemia without coma, without long-term current use of insulin ([facility]); Callus; Dry skin 11/03/2024 Travel 11/02/[address] [address] Vazquez Louis ANP Chart Prep 10/28/2024 Patient Outreach [address] [address] Vazquez Louis ANP Care Coordination (CM/CHW appt) 10/20/[address] [address] Vazquez Louis ANP Nurse Triage 10/16/2024 Patient Outreach [address] [address] Vazquez Louis ANP Care Coordination (CM/CHW outreach) 10/16/[address] [address] Schuyler Anand, APOLLO Care Management (C3- chart review) 10/15/2024 Orders Only [facility] External Provider, [facility] 10/14/2024 Refill [facility] [address] [place] [phone] Vazquez Louis ANP Iron deficiency anemia, unspecified iron deficiency anemia type 09/19/2024 Refill [facility] [address] [place] [address] [place] [address] Vazquez Louis ANP Heartburn 09/16/2024 Telephone [facility] [address] [place] [address] Vazquez Louis ANP Durable Medical Equipment (Shower [...] MMR 10/08/1996,10/24/1993 Meningococcal MCV4P ACYW-135 09/17/2006 Novel Fozisovya-J8U2-24, all formulations 06/21/2009 Pneumococcal Conjugate PCV 20 [...] Description 02/04/2025 2:00 PM EDT Office Visit [facility] [address] [place], [place] [phone] Vazquez Louis ANP [address] [place] [address] Health Maintenance Due Date Last Done Comments HIV Screening 1992 Eye Exam 2002 Alcohol/Substance Use Screening 2004 Family Planning (PISQ) 2007 Hepatitis C Screening 2010 Diabetes: Urine Protein Screening 2011 Hepatitis A Vaccines (2 of 2 - 2-dose series) 08/31/2011 03/01/2011 COVID-19 Vaccine ( season) 2024 Diabetes: Hemoglobin A1C 02/03/2025 025, 06/23/2024, 02/13/2024, Additional history exists Depression Screening 06/23/2025 06/23/2024, 06/23/20 24 SDOH Screening 06/23/2025 06/23/2024 Diabetes: Foot Exam 11/03/2025 11/03/2024, 11/03/2024, 11/03/2024, Additional history exists Tobacco Screening 11/03/2025 11/03/2024 Lipid Panel 11/11/2025 11/11/2024, 09/02, 09/21/2021 Cervical Cancer Screening 02/07/2026 HPV/Cotest 02/07/2026 02/07/2021, [...] Procedure Name Priority Date/Time Associated Diagnosis Comments TSH Routine 11/11/2024 10:49 AM EDT T4, FREE Routine 11/11/2024 10:49 AM EDT LIPID PANEL, STANDARD Routine 11/11/2024 10:49 AM EDT Type 2 diabetes mellitus with hypoglycemia without coma, without long-term current use of insulin ([facility]) POCT GLYCATED HEMOGLOBIN, TOTAL Routine 11/03/2024 2:32 PM EST Type 2 diabetes mellitus with hypoglycemia without coma, without long-term current use of insulin ([facility]) POCT GLUCOSE Routine 11/03/2024 2:26 PM EST Type 2 diabetes mellitus with hypoglycemia without coma, without long-term current use of insulin (CMS/[facility]) CT HEAD WO CONTRAST Routine 10/15/2024 6 :11 PM EST XR CHEST 2 VIEWS Routine 08/22/2024 1:15 PM EST SARS COV2/INFLUENZA A/B AND RSV RNA QL NAAT Routine 08/22/2024 12:59 PM EST STREP A NUCLEIC ACID Routine 08/22/2024 12:59 PM EST ZZZ HISTORICAL HPV E6/E7 RFLX BCECA 16 18/45 Routine 02/07/2021 3:19 PM EDT HM PAP/HPV Routine 02/07/2021 from Last 3 Months or Most Recently Relevant to Health Maintenance Results * (ABNORMAL) TSH (11/11/2024 10:49 AM EDT) Thyroid Stimulating Hormone 60.00(H) 0.32 - 4.0 uIU/mL [facility] Comment:Note: A sustained TS H level above 2.5 uIU/mL may warrant further investigation. TSH 3rd Generation ([facility]) 11/11/2024 10:4 9 AM EDT 11/11/2024 10:49 AM EDT us Generic External Data Provider LAB BLOOD ORDERAB LES Final Result Performing Organization Address [facility] Co de Phone Number [facility] [address] [place] [phone] * T4, Free (11/11/2024 10:49 AM EDT) Free T4 (Free Thyroxine) 1.23 0.71 - 1.85 ng/dL [facility] 11/11/2024 10:4 9 AM EDT 11/11/2024 10:49 AM EDT Generic External Data Provider LAB BLOOD ORDERAB LES Final Result Performing Organization Address [facility] Co de Phone Number [facility] [address] [place] [phone] * (ABNORMAL) Lipid Panel, Standard (11/11/2024 10:49 AM EDT) Triglycerides 182(H) <150 mg/dL [facility] Comment:Desirable Triglyceri de: less than 150 mg/dLBorderline High Triglyceride 150-199 mg/dLHigh Triglyceride: 200-499 mg/dLVery High Triglyceride: greater than or equal to 5OO mg/dL Cholesterol 192 <200 mg/dL [facility] Comment:Desirable Cholestero l: less than 200 mg/dLBorderline High Cholesterol: 200-239 mg/dLHigh Cholesterol: greater than 239 mg/dL LDL Cholesterol Calculated 125(H) <100 mg/dL [facility] Comment:Desirable LDL: less than 100 mg/dLNear Optimal/Above Optimal LDL: 110- 129 mg/dLBorderline High LDL: 130-159 mg/dLHigh LDL: 160-189 mg/dLVery High LDL: greater than or equal to 190 mg/dL HDL Cholesterol 31(L) >40 mg/dL [facility] Comment:Desirable HDL: great er than 40 mg/dL Note: This HDL assay may give artificially low results in patients with liver disease. Blood Venous blood specimen / Unknown 11/11/2024 10:49 AM EDT 11/11/2024 10:49 AM EDT us Vazquez ROBBINS LAB BLOOD ORDERABLES Final Resul t [facility] [address] [place] [phone] * (ABNORMAL) POCT HGB A1C (11/03/2024 2:32 PM EST) Hemoglobin A1C 6.2(A) 4.0 - 6.0 % QC Media Lot # [id number] Lot# Expiration Date Blood 11/03/2024 2:32 PM EST us Vazquez Louis ANP POINT OF CARE TEST ENTER/EDIT OR DERABLES Final Result * POCT Glucose (11/03/2024 2:26 PM EST) Pathologist [facility] Glucose Blood, POC 89 60 - 200 mg/dL QC Media Lot # [id number] Lot# Expiration Date 419 Blood Capillary blood specimen / Unknown 11/03/2024 2:26 PM EST us Vazquez ROBBINS POINT OF CARE TEST ENTER/EDIT OR DERABLES Final Result * CT Head w/o Contrast (10/15/2024 6:11 PM EST) Anatomical Region Laterality Modality Head, Neck Computed Tomogra phy 10/15/2024 6:11 PM EST Narrative 10/15/2024 6:13 PM EST ? [facility] ?[address] ?[place] [address] ? CT Scan Report ? Signed ? Patient: Giovanny,Dolores ?MR#: [id number] ?? [id number] ? : 1990 ?Acct:[id number] ? Age/Sex: 34 / F ?ADM Date: 10/15/24 ? Loc: HO.ED ? Attending Dr: ? Ordering Physician: Sayda Sanders NP ?? Date of Service: 10/15/24 ?? Procedure(s): CT head/brain wo IV con ?? Accession Number(s): [id number] ? cc: VAZQUEZ LOUIS CHILD PSYCHOLOGIST; Sayda Sanders NP ? Report Number: ?? [id number]: Total DLP = ??616.00 mGy-cm ? CLINICAL [...] by Ronald Paz MD in OV> ? 10/15/241811 ? DD/ 10 ? TD/TT: 10/15/241810 ? Supervisor Blast Furnace: ? Procedure Note Donotuseinterpreter, Image - 10/15/[address] [place] [address] [address] Scan Report Signed Patient: Lou Baltazar#: [id number] : 1990Acct:[id number] Age/Sex: 34 / FADM Date: 10/15/24 Loc: HO.ED Attending Dr: Ordering Physician: Sayda Sanders NP Date of Service: 10/15/24 Procedure(s): CT head/brain wo IV con Accession Number(s): [id number] cc: VAZQUEZ LOUIS CHILD PSYCHOLOGIST; Sayda Sanders NP Report Number: [id number]: Total DLP = 616.00 mGy-cm CLINICAL HISTORY: [...] signed by Ronald Paz MD in OV> 10/15/242 DD/ 1811 TD/TT: 10/15/24 181 Supervisor Blast Furnace: us [facility] External Provider IMG CT PROCEDURES Edited Result - Final * XR Chest 2 Views (08/22/2024 1:15 PM EST) Anatomical Region Laterality Modality Chest Radiographic Katie ging 08/22/2024 1:15 PM EST Narrative 08/22/2024 2:21 PM EST ? [place] [facility] ?[address] ?[place] [address] ?XRay Report ? Signed ? Patient: Giovanny,Dolores ?MR#: [id number] ?? [id number] ? : 1990 ?Acct:[id number] ? Age/Sex: 34 / F ?ADM Date: 08/22/24 ? Loc: HO.ED ? Attending Dr: ? Ordering Physician: Moon Figueroa ?? Date of Service: 08/22/24 ?? Procedure(s): XR chest 2V ?? Accession Number(s): [id number] ? cc: Moon Figueroa; VAZQUEZ LOUIS NP [...] DD/ 1315 ? TD/TT: 08/22/24 1325 ? Supervisor [employer] Furnace: ? Procedure Note Theodorebreannacourtjennifer, Indigo - 08/22/2024 [place] [address] XRay Report Signed Patient: Lou Baltazar#: [id number] : 1990Acct:[id number] Age/Sex: 34 / FADM Date: 08/22/24 Loc: HO.ED Attending Dr: Ordering Physician: Moon Figueroa Date of Service: 08/22/24 Procedure(s): XR chest 2V Accession Number(s): [id number] cc: Moon Figueroa; VAZQUEZ LOUIS NP EXAMINATION: [...] Bilateral low lung volumes. Electronically signed by: Mayr Carmen Wheeler MD 08/22/2024 02:18 PM EST Dictated By: Mary Carmen Wheeler MD Signed By: <Electronically signed by Mary Carmne Wheeler MD in OV> 08/22/24 1418 DD/ 1315 TD/TT: 08/22/24 1325 Supervisor Blast Furnace: [facility] External Provider IMG XR PROCEDURES Edited Result - Final * Strep A Nucleic Acid (08/22/2024 12:59 PM EST) [employer]NOW SERIAL# [id number] [facility] Strep A Nucleic Acid Negative Negative [facility] Comment:All test results mus t be [...] LAB MICROBIOLOGY - GENERAL ORDERABLES Final Result [facility] [address] [place] [phone] * SARS-CoV-2 RNA, Influenza A/B, and RSV RNA, Ql NAAT (08/22/2024 12:59 PM EST) Influenza A PCR NEGATIVE Negative [facility] Influenza B PCR NEGATIVE Negative [facility] Resp Syncy Virus RNA Qual PCR NEGATIVE Negative [facility] SARS COV2 PCR NEGATIVE Negative [facility] Comment:All test results mus t [...] use by authorized laboratories.Testing performed on the [employer] GeneXpert utilizingreal-time RT-PCR.All SARS CoV2 and positive influenza A/B results arereported to [facility]. 08/22/2024 12:5 9 PM EST 08/22/2024 1:01 PM EST us Generic External Data Provider LAB MICROBIOLOGY - GENERAL ORDERABLES Final Result [facility] [address] [place] [phone] * HPV E6/E7 RFLX BECCA 16 18/45 (02/07/2021 3:19 PM EDT) HPV 16 RNA [facility] HPV 18/45 RNA [facility] HPV E6 E7 ADD [facility] HPV mRNA E6/E7 rflx Not Detected Not Detected [facility] Comment: Methodology: Appraiser-Mediated Amplification This assay detects E6/E7 viral messenger RNA (mRNA) from 14 high-risk HPV types (16,18,31,33,35,39,45,51,52,56,58,59,66,68). The analytical performance characteristics of this assay have been determined by [employer] The modifications have not been cleared or approved by the FDA. This assay has been validated pursuant to the CLIA regulations and is used for clinical purposes. For additional information, please refer to http://education.[employer]/faq/SET524m0 (This link if provided for information/ educational purposes only.) THIS TEST WAS PERFORMED AT: [facility] [address] [place] [address],[address] [place], [place] ??[id number] KARIE PEREZ MD 02/07/2021 3:19 PM EDT Giorgio Mock MD HISTORICAL/NON ORDERABLE LABS Fi nal Result [facility] [address] * Hm Pap Smear (02/07/2021) Historical Provider HEALTH MAINTENANCE Final Result from Last 3 Months or Most Recently Relevant to Health Maintenance [facility] Care Teams It Security Engineer Relationship Specialty Start Date End Date Vazquez Louis ANP [address] [place] [address] PCP - General Family Medicine 02/16/20 [facility] 07/11/15
--- OUTSIDE RECORDS SUMMARY | 2024-11-11 18:17 | XMS_ITS | Encounter Summary ---
Author Organization [employer] Address [address] [facility] 7t [place] [address] Care Team Providers Care Print Controller Name Role Phone Bernadine Ramos Primary Care Provider [phone] Encounter Details Date Type Department Care Team (Late st Contact Info) Description 11/11/2024 Orders Only GENERIC EXTERNAL DATA DEPARTMENT Provider, Generic External Data Social History Tobacco Use Types Packs/Day Years [...] Description 02/04/2025 2:00 PM EDT Office Visit [facility] [address] [place] [address] Bernadine Ramos ANP [address] [place] [address] documented as of this encounter Procedures Procedure Name Priority Date/Time Associated Diagnosis Comments TSH Routine 11/11/2024 10:49 AM EDT T4, FREE Routine 11/11/2024 10:49 AM EDT documented in this encounter Results * (ABNORMAL) TSH (11/11/2024 10:49 AM EDT) Thyroid Stimulating Hormone 60.00(H) 0.32 - 4.0 uIU/mL [facility] Comment:Note: A sustained TS H level above 2.5 uIU/mL may warrant further investigation. TSH 3rd Generation ([facility]) 11/11/2024 10:4 9 AM EDT 11/11/2024 10:49 AM EDT us Generic External Data Provider LAB BLOOD ORDERAB LES Final Result [facility] [address] [place] [phone] * T4, Free (11/11/2024 10:49 AM EDT) Free T4 (Free Thyroxine) 1.23 0.71 - 1.85 ng/dL [facility] 11/11/2024 10:4 9 AM EDT 11/11/2024 10:49 AM EDT us Generic External Data Provider LAB BLOOD ORDERAB LES Final Result [facility] [address] [place] [phone] documented in this encounter Visit Diagnoses Not on filedocumented in this encounter Additional Health Concerns Assessment Noted Time PHQ-9 Depression Total Score: 8 06/23/20 24 10:48 AM EDT documented as of this encounter Care Teams Print Controller Relationship Specialty Start Date End Date Bernadine Ramos ANP [address] [place] [address] PCP - General Family Medicine 02/16/20 [facility] 07/11/15 documented as of this encounter
--- OUTSIDE RECORDS SUMMARY | 2024-11-11 18:17 | XMS_ITS | Encounter Summary ---
Author Organization [employer] Address [address] [facility] 7t [place] [address] Care Team Providers Care Mechanical Design Engineer Name Role Phone Bernadine Ramos Primary Care Provider [phone] Reason for Visit * Reason Comments Care Coordination CM/CHW outreach Encounter Details Date Type Department Care Team (Latest Contact Info) Description 10/16/2024 Patient Outreach [facility] [address] [place] [address] Bernadine Ramos ANP [address] [place] [address] Care Coordination (CM/CHW outreach) Social History Tobacco [...] outbound call to patient introducing herself from [facility] CM Department, in regard to offering services. Patient's name and was confirmed. Patient agrees to participate in program. Appt. for initial assessment scheduled for 10/29/24 @ 1PM tele with KEENAN Anand RN. CHW reinforced direct contact information or CM for any additional questions or concerns and extended clinic hours on Mondays and Wednesdays, and Walk-InUrgent Care Located in [facility] of [facility]. Patient provided with after-hours line for [facility], , which offer nighttime triage service and option to transfer to business line controller provider if needed. Patient verbalizes understanding, and able to repeat back to chief underwriter. documented in this encounter Plan of Treatment Upcoming Encounters Date Type Department Care Team ([facility] st Contact Info) Description 02/04/2025 2:00 PM EDT Office Visit [facility] [address] [place] [phone] Bernadine Ramos ANP [address] [place] [address] documented as of this encounter Visit Diagnoses Not on filedocumented in this encounter Additional Health Concerns Assessment Noted Time PHQ-9 Depression Total Score: 8 06/23/20 24 10:48 AM EDT documented as of this encounter Care Teams Mechanical Design Engineer Relationship Specialty Start Date End Date Bernadine Ramos ANP [address] [place] [address] PCP - General Family Medicine 02/16/20 [facility] 07/11/15 documented as of this encounter
== END 2024-11-11 16:00 | disposition home or self-care (01) ==
LOC: HO.ENCR 15:36
PROVIDERS: PCP Nurse Practitioner Primary Care; Visit Provider Student in an Organized Health Care Education/Training Program
DX: E03.9 Hypothyroidism, unspecified (principal); R79.89 Other specified abnormal findings of blood chemistry
CPT/HCPCS: 99214

== ENCOUNTER 2024-11-24 07:19 | Day surgery (SDC) | payer MEDICAID, SELFPAY ==
--- OUTSIDE RECORDS SUMMARY | 2024-10-28 14:33 | XMS_ITS | Encounter Summary ---
Author Organization [facility] Address [address] [place] [phone] Phone Care Team Providers Care Plant Cytologist Name Role Phone Austyn Lane MD Primary Care Provider Encounter Details Date Type Department Care Team (Late st Contact Info) Description 09/26/2012 Documentation [facility] [place] [facility] [address] [place] [address] Family Medicine, Physician [address] [place], [place] [phone] Social History Tobacco Use Types Packs/Day Years [...] on filedocumented in this encounter Care Teams Plant Cytologist Relationship Specialty Start Date End Date Austyn Lane MD [address] [place] [address] TATE Webb [phone] PCP - General 04/12/17 11/14/22 documented as of this encounter
--- OUTSIDE RECORDS SUMMARY | 2024-10-28 14:33 | XMS_ITS | Encounter Summary ---
Author Organization [facility] Address [address] [place] [phone] Phone Care Team Providers Care Packing House Supervisor Name Role Phone Austyn Lane MD Primary Care Provider [phone] Encounter Details Date Type Department Care Team (Late st Contact Info) Description 09/29/2012 [place] [facility] [place] [address] [place] [address] Family Medicine, Physician [address] [place], [place] [phone] Social History Tobacco Use Types Packs/Day Years [...] on filedocumented in this encounter Care Teams Packing House Supervisor Relationship Specialty Start Date End Date Austyn Lane MD [address] [place] [address] TATE Webb [phone] PCP - General 04/12/17 11/14/22 documented as of this encounter
--- OUTSIDE RECORDS SUMMARY | 2024-10-28 14:33 | XMS_ITS | Encounter Summary ---
Author Organization [facility] Address [address] [place] [address] Phone Care Team Providers Care Workflow Developer Name Role Phone Austyn Lane MD Primary Care Provider [phone] Encounter Details Date Type Department Care Team (Late st Contact Info) Description 12/01/2012 Documentation [facility] [address] [place] [address] Family Medicine, Physician [address] [place], [place] [id number] Social History Tobacco Use Types Packs/Day Years [...] on filedocumented in this encounter Care Teams Workflow Developer Relationship Specialty Start Date End Date Austyn Lane MD [address] [place] [address] TATE Webb [address] PCP - General 04/12/17 11/14/22 documented as of this encounter
--- OUTSIDE RECORDS SUMMARY | 2024-10-28 14:33 | XMS_ITS | Encounter Summary ---
Author Organization [employer] Address [address] [facility] 7t [place] [address] Care Team Providers Care Stoker Mechanic Name Role Phone Bernadine Ramos Primary Care Provider [phone] Reason for Visit * Reason Onset Date Comments FYI 03/22/2023 Encounter Details Date Type Department Care Team ([facility] st Contact Info) Description 03/22/2023 Telephone [facility] MED[facility]INE [address] [place] [address] Bernadine Ramos ANP [address] [place] [address] FYI Social History Tobacco Use Types Packs/Day [...] - 03/22/2023 2:39 PM EDT Tc from [facility] with [facility] stating will be renewing pt care of plan on March 27 will be seeing pt 5 x a week for medication. documented in this encounter Plan of Treatment Upcoming Encounters Date Type Department Care Team (Late st Contact Info) Description 11/03/2024 2:15 PM EST Office Visit [facility] MED[facility]INE [address] [place] [address] Bernadine Ramos ANP [address] [place] [address] documented as of this encounter Visit Diagnoses Not on filedocumented in this encounter Additional Health Concerns Assessment Noted Time PHQ-9 Depression Total Score: 0 03/19/20 23 2:00 PM EDT documented as of this encounter Care Teams Stoker Mechanic Relationship Specialty Start Date End Date Bernadine Ramos ANP [address] [place] [address] PCP - General Family Medicine 02/16/20 [facility] 07/11/15 documented as of this encounter
--- OUTSIDE RECORDS SUMMARY | 2024-10-28 14:33 | XMS_ITS | Encounter Summary ---
Author Organization [facility] Address [address] [place] [phone] Phone Care Team Providers Care Bilingual Elementary School Teacher Name Role Phone Austyn Lane MD Primary Care Provider [phone] Encounter Details Date Type Department Care Team (Late st Contact Info) Description 12/21/2011 Documentation [facility] [place] Family Medicine [address] [place] [address] Family Medicine, Physician [address] [place], [place] [phone] Social History Tobacco Use Types Packs/Day Years [...] on filedocumented in this encounter Care Teams Bilingual [employer] Teacher Relationship Specialty Start Date End Date Austyn Lane MD [address] [place] [address] TATE Webb [address] PCP - General 04/12/17 11/14/22 documented as of this encounter
--- OUTSIDE RECORDS SUMMARY | 2024-10-28 14:33 | XMS_ITS | Encounter Summary ---
Author Organization [employer] Address [address] [facility] 7t [place] [address] Care Team Providers Care Livestock Commission Agent Name Role Phone Bernadine Ramos Primary Care Provider [phone] Reason for Visit * Reason Comments Care Coordination CM/CHW appt Encounter Details Date Type Department Care Team (Latest Contact Info) Description 10/28/2024 Patient Outreach [facility] MEDICINE [address] [place] [address] Bernadine Ramos ANP [address] [place] [address] Care Coordination (CM/CHW appt) Social History Tobacco Use Types Packs/Day Years [...] with others, in a hotel, in a penitentiary, living outside on the street, on a [...] as of this encounter Progress Notes * Jacqueline Singh - 10/28/2024 10:43 AM EST CHW Jacqueline Singh placed call to patient to remind of appt on 10/29/24 for CM assessment, patient stated something came up and cannot attend appt, CHW r/s appt to 11/17/24 1pm tele with CM Schuyler Anand RN. CHW will remind patient of new appt. documented in this encounter Plan of Treatment Upcoming Encounters Date Type Department Care Team (Late st Contact Info) Description 11/03/2024 2:15 PM EST Office Visit [facility] MEDICINE [address] [place] [address] Bernadine Ramos ANP [address] [place] [address] documented as of this encounter Visit Diagnoses Not on filedocumented in this encounter Additional Health Concerns Assessment Noted Time PHQ-9 Depression Total Score: 8 06/23/20 24 10:48 AM EDT documented as of this encounter Care Teams Livestock Commission Agent Relationship Specialty Start Date End Date Bernadine Ramos ANP [address] [place] [address] PCP - General Family Medicine 02/16/20 [facility] 07/11/15 documented as of this encounter
--- OUTSIDE RECORDS SUMMARY | 2024-10-28 14:33 | XMS_ITS | Encounter Summary ---
Author Organization [employer] Address [address] [place] [address] 7t [place] [address] Care Team Providers Care Associate Financial Analyst Name Role Phone Bernadine Ramos Primary Care Provider [phone] Encounter Details Date Type Department Care Team (Late st Contact Info) Description 05/29/2023 Orders Only [facility] [address] [place] [phone] Provider, MD Estephanie Social History Tobacco Use [...] Description 11/03/2024 2:15 PM EST Office Visit [facility] [address] [place] [phone] Bernadine Ramos ANP [address] [place], [place] [phone] documented as of this encounter Procedures Procedure [...] documented as of this encounter Care Teams Associate Financial Analyst Relationship Specialty Start Date End Date Bernadine Ramos ANP [address] [place] [address] PCP - General Family Medicine 02/16/20 [facility] 07/11/15 documented as of this encounter
--- OUTSIDE RECORDS SUMMARY | 2024-10-28 14:33 | XMS_ITS | Encounter Summary ---
Author Organization [facility] Address [address] [place] [address] Phone Care Team Providers Care Spot Worker Name Role Phone Austyn Lane MD Primary Care Provider [phone] Encounter Details Date Type Department Care Team (Late st Contact Info) Description 04/18/2017 Conversion Encounter [facility] [address] [place] [place] [address] Social History Tobacco Use Types Packs/Day Years [...] on filedocumented in this encounter Care Teams Spot Worker Relationship Specialty Start Date End Date Austyn Lane MD [address] [facility] [address] PCP - General 04/12/17 11/14/22 documented as of this encounter
--- OUTSIDE RECORDS SUMMARY | 2024-10-28 14:33 | XMS_ITS | Encounter Summary ---
Author Organization [employer] Address [address] [place] [address] 7t [place] [address] Care Team Providers Care Horse Trader Name Role Phone Bernadine Ramos Primary Care Provider [phone] Reason for Visit * Reason Comments Med Refill Encounter Details Date Type Department Care Team (Late st Contact Info) Description 03/21/2023 Refill [facility] [address] [place] [address] Bernadine Ramos ANP [address] [place] [address] Heartburn Social History Tobacco Use Types Packs/Day [...] Description 11/03/2024 2:15 PM EST Office Visit [facility] [address] [place] [phone] Bernadine Ramos ANP [address] [place], [place] [phone] documented as of this encounter Visit Diagnoses Diagnosis Heartburn documented in this encounter Additional Health Concerns Assessment Noted Time PHQ-9 Depression Total Score: 0 03/19/20 23 2:00 PM EDT documented as of this encounter Care Teams Horse Trader Relationship Specialty Start Date End Date Bernadine Ramos ANP [address] [place] [address] PCP - General Family Medicine 02/16/20 [facility] 07/11/15 documented as of this encounter
--- OUTSIDE RECORDS SUMMARY | 2024-10-28 14:33 | XMS_ITS | Clinical Summary ---
Author Organization [facility] Address [address] [place] [address] Phone Care Team Providers Care Laborer Filter Plant Name Role Phone Unavailable Primary Care Provider [...] 10/24/1993 Meningococcal Vaccine Aged Out 09/17/2006 No ol ani eligible based on patient's age to complete this topic HPV Vaccines Completed 05/18/2008, 12/31, 11/12/2007 Men B Vaccine Aged Out No longer elig ible based on patient's age to complete this topic Pneumococcal Vaccine Aged Out No long er eligible based on patient's age to complete this topic Procedures * Due to [place] state law, this organization might not be sharing sensitive test results. Procedure Name Priority Date/Time Associated Diagnosis Comments CHLAMYDIA AND GONORRHEA, AMPLIFIED Routine 08/08/2010 1:32 PM EST from Last 3 Months or Most Recently Relevant to Health Maintenance Results * Due to [place] state law, this organization might not be sharing sensitive test results. * Chlamydia and Gonorrhoea, Amplified (08/08/2010 1:32 PM EST) Pathologist [facility] URINE CHLAMYDIA AMP PROBE NEGATIVE [facility] Comment: NO CHLAMYDIA TRACHOMATIS RNA DETECTED IN THIS PATIENT'S SAMPLE. ? (REFERENCE RANGE/NORMAL VALUE: NOT DETECTED) ? URINE GC AMP PROBE NEGATIVE [facility] Comment: NO NEISSERIA GONORRHOEAE RNA DETECTED IN THIS PATIENT'S SAMPLE. ? (REFERENCE RANGE/NORMAL VALUE: NOT DETECTED) ? NOTE: THIS TEST USES SUPERVISOR MAINTENANCE AND CUSTODIANS MEDIATED AMPLIFICATION METHOD TO DETECT rRNA FROM [...] OTHER AGENTS. 08/08/2010 1:32 PM EST Narrative [facility] - 08/08/2010 1:32 PM EST URINE CHLAMYDIA GC AMP PROBE us Veronica Lux NP LAB MICROBIOLOGY - GENERAL OR DERABLES Final Result [facility] [address] [place] [address], [place] from Last 3 Months or Most Recently Relevant to Health Maintenance
--- OUTSIDE RECORDS SUMMARY | 2024-10-28 14:34 | XMS_ITS | Encounter Summary ---
Author Organization [employer] Address [address] [facility] 7t [place] [address] Care Team Providers Care Manager [place] Name Role Phone Bernadine Ramos Primary Care Provider [phone] Reason for Visit * Reason Comments Med Refill Encounter Details Date Type Department Care Team (Late st Contact Info) Description 10/14/2024 Refill [facility] [address] [place] [address] Bernadine Ramos ANP [address] [place] [address] Iron deficiency anemia, unspecified iron deficiency anemia [...] with others, in a hotel, in a fdc, living outside on the street, on a [...] Description 11/03/2024 2:15 PM EST Office Visit [facility] MED[facility]INE [address] [place] [phone] Bernadine Ramos ANP [address] [place] [address] documented as of this encounter Visit Diagnoses Diagnosis Iron deficiency anemia, unspecified iron deficiency anemia type documented in this encounter Additional Health Concerns Assessment Noted Time PHQ-9 Depression Total Score: 8 06/23/20 24 10:48 AM EDT documented as of this encounter Care Teams Manager [place] Relationship Specialty Start Date End Date Bernadine Ramos ANP [address] [place] [address] PCP - General Family Medicine 02/16/20 [facility] 07/11/15 documented as of this encounter
--- OUTSIDE RECORDS SUMMARY | 2024-10-28 14:34 | XMS_ITS | Encounter Summary ---
Author Organization [employer] Address [address] [facility] [address] [place] [address] Care Team Providers Care Data Control Clerk Supervisor Name Role Phone Bernadine Ramos Primary Care Provider [phone] Reason for Visit * Reason Onset Date Comments Care Management 10/16/2024 [facility]- chart revi ew Encounter Details Date Type Department Care Team ([facility] st Contact Info) Description 10/16/2024 Telephone [facility] MEDICINE [address] [place] [address] Schuyler Anand RN [address] [place] [address] Care Management (CM- chart review) Social History [...] fatigue, and Type 2 DM. Specialists include [facility] GI (visit scheduled 10/21/24), [facility] General Surgery, PT, Podiatry, [facility] Endo, and Nutrition. Patient receiving VNA services from [facility]. ED visits within the last 12 months include [facility] 10/15/24 and [facility] ED 08/22/24. Last appointment in PCP office on 06/23/24. Next appointment scheduled for 11/03/24 at 2:15pm. documented in this encounter Plan of Treatment Upcoming Encounters Date Type Department Care Team (Late st Contact Info) Description 11/03/2024 2:15 PM EST Office Visit [facility] MEDICINE [address] [place] [address] Bernadine Ramos ANP [address] [place] [address] documented as of this encounter Visit Diagnoses Not on filedocumented in this encounter Additional Health Concerns Assessment Noted Time PHQ-9 Depression Total Score: 8 06/23/20 24 10:48 AM EDT documented as of this encounter Care Teams Data Control Clerk Supervisor Relationship Specialty Start Date End Date Bernadine Ramos ANP [address] [place] [address] PCP - General Family Medicine 02/16/20 [facility] 07/11/15 documented as of this encounter
--- OUTSIDE RECORDS SUMMARY | 2024-10-28 14:34 | XMS_ITS | Clinical Summary ---
Author Organization [employer] Address [address] [facility] 7t [place] [address] Care Team Providers Care Industrial Hygienist Name Role Phone Vazquez Louis Primary Care Provider [phone] Allergies No known active allergies Medications albuterol [...] tablet 11/10/19 23 Active Continuous Blood Gluc Shuttle Final Inspector (FreeStyle Angi 2 [place]) deviceIndicatio ns:Type 2 diabetes mellitus with hypoglycemia [...] 1 (one) time per week. 2 each 12 06/23/20 24 Active Continuous Glucose Sensor (FreeStyle [...] 90 tablet 3 10/04/19 24 2024 Discontinued Active Problems Problem Noted [...] Encounters Date Type Department Care Team Description 10/28/2024 Patient Outreach [facility] [address] [place] [phone] Vazquez Louis ANP Care Coordination (CM/CHW appt) 10/20/2024 Telephone [facility] [address] [place] [phone] Vazquez Louis ANP Nurse Triage 10/16/2024 Patient Outreach [address] [address] Vazquez Louis ANP Care Coordination (CM/CHW outreach) 10/16/[address] [address] Schuyler Anand RN Care Management (C3- chart review) 10/15/2024 Orders Only [facility] External Provider, [facility] 10/14/2024 Refill [facility] [address] [place] [phone] Vazquez Louis ANP Iron deficiency anemia, unspecified iron deficiency anemia type 09/19/2024 Refill [facility] [address] [place] [phone] Vazquez Louis ANP Heartburn 09/16/2024 Telephone [facility] [address] [place] [phone] Vazquez Louis ANP Durable Medical Equipment (Shower chair) 08/22/2024 Orders Only GENERIC EXTERNAL DATA DEPARTMENT Provider, Generic External Data 08/12/2024 Orders Only GENERIC EXTERNAL DATA DEPARTMENT Provider, Generic External Data from Last 3 Months Immunizations Name Administration [...] MMR 10/08/1996,10/24/1993 Meningococcal MCV4P ACYW-135 09/17/2006 Novel Pvsdijjso-X6C0-51, all formulations 06/21/2009 Pneumococcal Conjugate PCV 20 [...] with others, in a hotel, in a intermediate, living outside on the street, on a [...] Office Visit [facility] [address] [place] [address] Vazquez Louis ANP [address] [place] [address] Health Maintenance Due Date Last Done Comments [...] coma, without long-term current use of insulin ([facility]) LIPID PANEL, STANDARD Routine 09/20/2022 4:48 PM [...] EST Narrative 10/15/2024 6:13 PM EST ? [facility] ?[address] ?[place] [address] ? CT Scan Report ? Signed ? Patient: Giovanny,Dolores ?MR#: [id number] ?? [id number] ? : 1990 ?Acct:[id number] ? Age/Sex: 34 / F ?ADM Date: 10/15/24 ? Loc: HO.ED ? Attending Dr: ? Ordering Physician: Sayda Sanders COMMERCIAL CLEANER ?? Date of Service: 10/15/24 ?? Procedure(s): CT head/brain wo IV con ?? Accession Number(s): [id number] ? cc: VAZQUEZ LOUIS COMMERCIAL CLEANER; Sayda Sanders NP ? Report Number: ?? [id number]: Total DLP = ??616.00 mGy-cm ? CLINICAL [...] by Ronald Paz MD in OV> ? 02/13/25 1812 ? DD/ 1811 ? TD/TT: 10/15/24 1811 ? Long Haul Truck Driver: ? Procedure Note Eyal, Image - 10/15/[address] [place] [address] [address] Scan Report Signed Patient: Lou Baltazar#: [id number] : 1990Acct:[id number] Age/Sex: 34 / FADM Date: 10/15/24 Loc: HO.ED Attending Dr: Ordering Physician: Sayda Sanders NP Date of Service: 10/15/24 Procedure(s): CT head/brain wo IV con Accession Number(s): [id number] cc: VAZQUEZ LOUIS COMMERCIAL CLEANER; Sayda Sanders NP Report Number: [id number]: Total DLP = 616.00 mGy-cm CLINICAL HISTORY: [...] in OV> 10/15/241811 DD/ 10 TD/TT: 10/15/241810 Long Haul Truck Driver: [facility] External Provider IMG CT PROCEDURES Edited Result - Final * XR Chest 2 Views (08/22/2024 1:15 PM EST) Anatomical Region Laterality Modality Chest Radiographic Katie ging 08/22/2024 1:15 PM EST Narrative 08/22/2024 2:21 PM EST ? [facility] ?[address] ?[place] [address] ?XRay Report ? Signed ? Patient: Dolores Baltazar ?MR#: [id number] ?? [id number] ? : 1990 ?Acct:[id number] ? Age/Sex: 34 / F ?ADM Date: 08/22/24 ? Loc: HO.ED ? Attending Dr: ? Ordering Physician: Moon Figueroa ?? Date of Service: 08/22/24 ?? Procedure(s): XR chest 2V ?? Accession Number(s): [id number] ? cc: Moon Figueroa; VAZQUEZ LOUIS NP [...] DD/ 1315 ? TD/TT: 08/22/24 1325 ? Long Haul Truck Driver: ? Procedure Note Donmark anthony, Image - 08/22/[address] [address] XRay Report Signed Patient: Lou Baltazar#: [id number] 418 : 1990Acct:[id number] Age/Sex: 34 / FADM Date: 08/22/24 Loc: .ED Attending Dr: Ordering Physician: Moon Figueroa Date of Service: 08/22/24 Procedure(s): XR chest 2V Accession Number(s): [id number] cc: Moon Figueroa; VAZQUEZ LOUIS NP EXAMINATION: [...] 08/22/24 1418 DD/ 1315 TD/TT: 08/22/24 1325 Long Haul Truck Driver: [facility] External Provider IMG XR PROCEDURES Edited Result - Final * Strep A Nucleic Acid (08/22/2024 12:59 PM EST) [employer]NOW SERIAL# [id number] [facility] Strep A Nucleic Acid Negative Negative [facility] Comment:All test results mus t be [...] GENERAL ORDERABLES Final Result Performing Organization Address [facility] Co de Phone Number [facility] [address] [place] [phone] * SARS-CoV-2 RNA, Influenza A/B, and RSV RNA, Ql NAAT (08/22/2024 12:59 PM EST) Influenza A PCR NEGATIVE Negative [facility] Influenza B PCR NEGATIVE Negative [facility] Resp Syncy Virus RNA Qual PCR NEGATIVE Negative [facility] SARS COV2 PCR NEGATIVE Negative [facility] Comment:All test results mus t [...] use by authorized laboratories.Testing performed on the Screen GeneXpert utilizingreal-time RT-PCR.All SARS CoV2 and positive influenza A/B results arereported to [facility]. 08/22/2024 12:5 9 PM EST 08/22/2024 1:01 PM EST Generic External Data Provider LAB MICROBIOLOGY - GENERAL ORDERABLES Final Result Performing Organization Address [facility] Co de Phone Number [facility] [address] [place] [phone] * (ABNORMAL) TSH (08/12/2024 3:43 PM EST) Pathologist [facility] Thyroid Stimulating Hormone >100.00(H) 0.32 - 4.0 uIU/mL [facility] Comment:Note: A sustained TS H level above 2.5 uIU/mL may warrant further investigation. TSH 3rd Generation ([facility]) 08/12/2024 3:43 PM EST 08/12/2024 3:43 PM EST Generic External Data Provider LAB BLOOD ORDERAB LES Final Result Performing Organization Address [facility]/ZIP Co de Phone Number [facility] [address] [place] [phone] * (ABNORMAL) T4, Free (08/12/2024 3:43 PM EST) Pathologist [facility] Free T4 (Free Thyroxine) <0.42(L) 0.71 - 1.85 ng/dL [facility] 08/12/2024 3:43 PM EST 08/12/2024 3:43 PM EST [facility] External Data Provider LAB BLOOD ORDERAB LES Final Result Performing Organization Address [facility] Co de Phone Number [facility] [address] [place] [phone] * (ABNORMAL) POCT HGB A1C (06/23/2024 11:13 AM EDT) Pathologist [facility] Hemoglobin A1C 8.3(A) 4.0 - 6.0 % QC Media Lot # [id number] Lot# Expiration Date [id number] Blood 06/23/2024 11:1 3 AM EDT us Vazquez Louis ANP POINT OF CARE TEST ENTER/EDIT OR DERABLES Final Result * Lipid Panel, Standard (09/20/2022 4:48 PM EST) Pathologist [facility] Triglycerides 189 mg/dL [facility] Comment:Desirable Triglyceri de: less than 150 mg/dLBorderline High Triglyceride 150-199 mg/dLHigh Triglyceride: 200-499 mg/dLVery High Triglyceride: greater than or equal to 5OO mg/dL Cholesterol 232 mg/dL [facility] Comment:Desirable Cholestero l: less than 200 mg/dLBorderline High Cholesterol: 200-239 mg/dLHigh Cholesterol: greater than 239 mg/dL LDL Cholesterol Calculated 159 mg/dl [facility] Comment:Desirable LDL: less than 100 mg/dLNear Optimal/Above Optimal LDL: 110- 129 mg/dLBorderline High LDL: 130-159 mg/dLHigh LDL: 160-189 mg/dLVery High LDL: greater than or equal to 190 mg/dL HDL Cholesterol 36 mg/dL [facility] Comment:Desirable HDL: great er than 40 mg/dL Note: This HDL assay may give artificially low results in patients with liver disease. 09/20/2022 4:48 PM EST 09/20/2022 4:48 PM EST us [facility] External Provider LAB BLO OD ORDERABLES Final Result [facility] [address] [place] [phone] * HPV E6/E7 RFLX BECCA 16 18/45 (02/07/2021 3:19 PM EDT) HPV 16 RNA [facility] HPV 18/45 RNA [facility] HPV E6 E7 ADD [facility] HPV mRNA E6/E7 rflx Not Detected Not Detected [facility] Comment: Methodology: Boring Machine Feeder-Mediated Amplification This assay detects E6/E7 viral messenger RNA (mRNA) from 14 high-risk HPV types (16,18,31,33,35,39,45,51,52,56,58,59,66,68). The analytical performance characteristics of this assay have been determined by [employer]. The modifications have not been cleared or approved by the FDA. This assay has been validated pursuant to the CLIA regulations and is used for clinical purposes. For additional information, please refer to http://education.IMayGou.[employer]/faq/VQU606u4 (This link if provided for information/ educational purposes only.) THIS TEST WAS PERFORMED AT: [facility] [address] [place] [address] [address] [place], [place] ??[phone] KARIE PEREZ MD 02/07/2021 3:19 PM EDT Giorgio Mock MD HISTORICAL/NON ORDERABLE LABS Fi nal Result [facility] [address] * Pap Smear (02/07/2021) Historical Provider HEALTH MAINTENANCE Final Result from Last 3 Months or Most Recently Relevant to Health Maintenance Insurance [employer] C3 Care Teams Industrial Hygienist Relationship Specialty Start Date End Date Vazquez Louis ANP [address] [place] [address] PCP - General Family Medicine 02/16/20 [facility] 07/11/15
--- OUTSIDE RECORDS SUMMARY | 2024-10-28 14:34 | XMS_ITS | Encounter Summary ---
Author Organization [employer] Address [address] [facility] 7t [place] [address] Care Team Providers Care Jet Dyeing Machine Tender Name Role Phone Bernadine Ramos Primary Care Provider [phone] Reason for Visit * Reason Onset Date Comments Nurse Triage 10/20/2024 Encounter Details Date Type Department Care Team ([facility] st Contact Info) Description 10/20/2024 Telephone [facility] [address] [place] [address] Bernadine Ramos ANP [address] [place] [address] Nurse Triage Social History Tobacco Use Types [...] - You have more questions Dolores Montano [place] Medicine Clinical Support (supporting ITZEL Floyd)1 hour ago (2:13 PM) Call this number [phone] instead of the [phone] Oscar Luna routed conversation to [place] Triage Nurse2 hours ago (1:26 PM) Dolores Montano [place] Medicine Clinical Support (supporting ITZEL Floyd)3 hours [...] PM EST Office Visit [facility] [address] [place] [address] Bernadine Ramos ANP [address] [place] [address] documented as of this encounter Visit Diagnoses Not on filedocumented in this encounter Additional Health Concerns Assessment Noted Time PHQ-9 Depression Total Score: 8 06/23/20 24 10:48 AM EDT documented as of this encounter Care Teams Jet Dyeing Machine Tender Relationship Specialty Start Date End Date Bernadine Ramos ANP [address] [place] [address] PCP - General Family Medicine 02/16/20 [facility] 07/11/15 documented as of this encounter
--- OUTSIDE RECORDS SUMMARY | 2024-10-28 14:34 | XMS_ITS | Encounter Summary ---
Author Organization [employer] Address [address] [facility] 7t [place] [address] Care Team Providers Care Humidifier Operator Name Role Phone Bernadine Ramos Primary Care Provider [phone] Reason for Visit * Reason Comments Care Coordination CM/CHW outreach Encounter Details Date Type Department Care Team (Latest Contact Info) Description 10/16/2024 Patient Outreach [facility] [address] [place] [address] Bernadine Ramos ANP [address] [place] [address] Care Coordination (CM/CHW outreach) Social History Tobacco [...] encounter Progress Notes * Jacqueline Singh - 10/16/2024 12:37 PM EST CHW Jacqueline Singh, placed outbound call to patient introducing herself from [facility] CM Department, in regard to offering services. Patient's name and was confirmed. Patient agrees to participate in program. Appt. for initial assessment scheduled for 10/29/24 @ 1PM tele with KEENAN Anand RN. CHW reinforced direct contact information or CM for any additional questions or concerns and extended clinic hours on Mondays and Wednesdays, and Walk-InUrgent Care Located in [facility] of [facility]. Patient provided with after-hours line for [facility], , which offer nighttime triage service and option to transfer to regional forester provider if needed. Patient verbalizes understanding, and able to repeat back to specification writer. documented in this encounter Plan of Treatment Upcoming Encounters Date Type Department Care Team ([facility] st Contact Info) Description 11/03/2024 2:15 PM EST Office Visit [facility] [address] [place] [phone] Bernadine Ramos ANP [address] [place] [address] documented as of this encounter Visit Diagnoses Not on filedocumented in this encounter Additional Health Concerns Assessment Noted Time PHQ-9 Depression Total Score: 8 06/23/20 24 10:48 AM EDT documented as of this encounter Care Teams Humidifier Operator Relationship Specialty Start Date End Date Bernadine Ramos ANP [address] [place] [address] PCP - General Family Medicine 02/16/20 [facility] 07/11/15 documented as of this encounter
--- OUTSIDE RECORDS SUMMARY | 2024-10-28 14:34 | XMS_ITS | Encounter Summary ---
Author Organization [facility] Address [address] [place] [phone] Phone Care Team Providers Care Communications Department Head Name Role Phone Austyn Lane MD Primary Care Provider [phone] Encounter Details Date Type Department Care Team (Late st Contact Info) Description 11/10/2009 Documentation [facility] [address] [place] [address] Family Medicine, Physician [address] [place], [place] [id number] Social History Tobacco Use Types Packs/Day Years [...] on filedocumented in this encounter Care Teams Communications Department Head Relationship Specialty Start Date End Date Austyn Lane MD [address] [place] [address] TATE Webb [address] PCP - General 04/12/17 11/14/22 documented as of this encounter
--- OUTSIDE RECORDS SUMMARY | 2024-10-28 14:34 | XMS_ITS | Encounter Summary ---
Author Organization [employer] Address [address] [facility] 7t [place] [address] Care Team Providers Care Reproductive Surgeon Name Role Phone Vazquez Louis Primary Care Provider [phone] Encounter Details Date Type Department Care Team (Late st Contact Info) Description 10/15/2024 Orders Only [facility] External Provider, [facility] Social History Tobacco Use Types Packs/Day Years [...] Description 11/03/2024 2:15 PM EST Office Visit [facility] [address] [place] [address] Vazquez Louis ANP [address] [place] [address] documented as of this encounter Procedures Procedure Name Priority Date/Time Associated Diagnosis Comments CT HEAD WO CONTRAST Routine 10/15/2024 6 :11 PM EST documented in this encounter Results * CT Head w/o Contrast (10/15/2024 6:11 PM EST) Anatomical Region Laterality Modality Head, Neck Computed Tomogra phy 10/15/2024 6:11 PM EST Narrative 10/15/2024 6:13 PM EST ? [facility] ?[address] ?[place] [address] ? CT Scan Report ? Signed ? Patient: Dolores Baltazar ?MR#: [id number] ?? [id number] ? : 1990 ?Acct:[id number] ? Age/Sex: 34 / F ?ADM Date: 02/13/25 ? Loc: HO.ED ? Attending Dr: ? Ordering Physician: Sayad Sanders NP ?? Date of Service: 10/15/24 ?? Procedure(s): CT head/brain wo IV con ?? Accession Number(s): [id number] ? cc: VAZQUEZ LOUIS HRIS ADMINISTRATOR; Sayda Sanders NP ? Report Number: ?? [id number]: Total DLP = ??616.00 mGy-cm ? CLINICAL [...] DD/ 1811 ? TD/TT: 10/15/24 1811 ? Casting Repairer: ? Procedure Note Indigo Birch - 10/15/[address] [place] [address] [address] Scan Report Signed Patient: Lou Baltazar#: [id number] 418 : 1990Acct:[id number] Age/Sex: 34 / FADM Date: 10/15/24 Loc: HO.ED Attending Dr: Ordering Physician: Sayda Sanders NP Date of Service: 10/15/24 Procedure(s): CT head/brain wo IV con Accession Number(s): [id number] cc: VAZQUEZ LOUIS HRIS ADMINISTRATOR; Sayda Sanders NP Report Number: [id number]: Total DLP = 616.00 mGy-cm CLINICAL HISTORY: [...] in OV> 10/15/241811 DD/ 10 TD/TT: 10/15/241810 Casting Repairer: [facility] External Provider IMG CT PROCEDURES Edited Result - Final documented in this encounter Visit Diagnoses Not on filedocumented in this encounter Additional Health Concerns Assessment Noted Time PHQ-9 Depression Total Score: 8 06/23/20 24 10:48 AM EDT documented as of this encounter Care Teams Reproductive Surgeon Relationship Specialty Start Date End Date Vazquez Louis ANP [address] [place] [address] PCP - General Family Medicine 02/16/20 [facility] 07/11/15 documented as of this encounter
--- OUTSIDE RECORDS SUMMARY | 2024-10-28 14:34 | XMS_ITS | Encounter Summary ---
Author Organization [facility] Address [address] [place] [phone] Phone Care Team Providers Care Measuring Clerk Name Role Phone Austyn Lane MD Primary Care Provider [phone] Encounter Details Date Type Department Care Team (Late st Contact Info) Description 04/06/2013 Documentation [facility] Family Medicine [address] [place] [address] Family Medicine, Physician [address] [place], [place] [phone] Social History Tobacco Use Types Packs/Day Years [...] on filedocumented in this encounter Care Teams Measuring Clerk Relationship Specialty Start Date End Date Austyn Lane MD [address] [place] [address] TATE Webb [address] PCP - General 04/12/17 11/14/22 documented as of this encounter
[2024-11-20 14:33] VITALS: BMI 48.6
[2024-11-24 08:02] LABS: UPreg QC Valid YES; Urine Pregnancy NEGATIVE (NEGATIVE)
[2024-11-24] MEDS: Lactated Ringers 1,000 ML 80 ML IVCONT (08:08)
--- NOTE | 2024-11-24 08:08 | P.HPSUR_ITS ---
Pre-Procedural Eval Section A - 24 Hr Update-Section A only Date of Service: 11/24/24 Section B - Complete if H&P > 30 days Chief Complaint: Gastro-esophageal reflux disease without esophagit Relevant Family History (Specify if Yes): No Relevant Social History: None Present Medications: see Short Stay Collaborative assessment Medical History: Significant History (Reactive hypoglycemia Hypoglycemia Cons tipation Post-surgical hypothyroidism Elevated liver enzymes Varicose veins of bilateral lower extremities with other complications Obstructive sleep apnea Rheumatoid arthritis Depression ADHD Hypothyroid Morbid obesity) History of Previous Operations: Relevant previous surgery/procedure and date(s) ( of thyroidectomy, H/O prior ablation treatment (~2017) History of vein st ripping (~2017)) Allergies: Allergies Allergy/AdvReac Type Severity Reaction Status Date / Time Seasonal Allergies Allergy Sneezing Verified 11/11/24 15:50 Review of Systems Sugical H&P ROS: Negative: Constitution, Cardiovascular, Respiratory, Neurological, Psychiatric, Hem-Onc, Allergic/Immunologic, Gastrointestinal, Genitourinary, Musculoskeletal, Integumentary, Endocrine and Eyes/Ears/Nose/Throat Exam Surgical H&P Exam: Normal: HEENT, Normal: Heart, Normal: Lungs, Normal: Extremities, Normal: Abdomen, Normal: Skin and Normal: Neurological Plan Diagnosis/Plan: Unchanged I have reviewed the history and physical and performed a pertinent physical examination on my patient. No changes have occurred unless specified. Time Spent With Patient Time: Total time managing care of this patient today ____ minutes.
[2024-11-24 08:11] LABS: Glucose, Whole Blood 107 mg/dL (60-115)
[2024-11-24 08:13] VITALS: BMI 45.5
[2024-11-24 08:21] VITALS: BP 117/65; PULSE 84; RESP 18; TEMP 36.7; O2SAT 98
--- NOTE | 2024-11-24 08:39 | HO.ANESPROP2 ---
[facility] Active Problems Active Problems: All Active Problems Elevated TSH (Acute) Major depression with psychotic features (Acute) Abnormal uterine bleeding (AUB) (Acute) Thrombocytopenia (Acute) Reactive hypoglycemia (Acute) Hypoglycemia (Acute) Displaced fracture of proximal phalanx of right thumb (Acute) Menorrhagia (Acute) Iron deficiency anemia (Acute) Constipation (Acute) Post-surgical hypothyroidism (Acute) COVID-19 (Acute) Varicose veins of left lower extremity with inflammation (Acute) Anemia (Acute) Morbid obesity (Acute) Rheumatoid arthritis (Acute) Hypothyroid (Acute) Obstructive sleep apnea (Acute) ADHD (Acute) Depression (Acute) Varicose veins of bilateral lower extremities with other complications (Acute) Past Medical History Medical History Reactive hypoglycemia Hypoglycemia Constipation Post-surgical hypothyroidism Elevated liver enzymes Varicose veins of bilateral lower extremities with other complications Obstructive sleep apnea Rheumatoid arthritis Depression ADHD Hypothyroid Morbid obesity Family History Family History Father No problems noted. Mother No problems noted. Brother No problems noted. Brother No problems noted. Brother No problems noted. Other No family history of cancer Family history of problems with anesthesia: No Surgical History Surgical History H/O prior ablation treatment (~2017) History of vein stripping (~2018) Hx of thyroidectomy History of Problems with Anesthesia: No Social History Social History Household Members: Family Household Members Other:: parents Housing: House Are you a primary ocular care aide to a significant other at home: No Do you presently have visiting nurse or other home services: No Alcohol intake: never Patient Tobacco Use Status: Never used Tobacco Have you been hit, kicked, punched, or otherwise hurt by someone within the past year? If so, by whom?: No Are you DNR?: No Advance Directives: No Advance Directives Information Provided: Yes Recently lost weight without trying: No Nutrition Risks: No Nutritional Risk FDLMP: last month service: No Current occupational status: disabled Meds Allergies Allergy/AdvReac Type Severity Reaction Status Date / Time Seasonal Allergies Allergy Sneezing Verified 11/11/24 15:50 Active Medications: Current Medications Lactated Ringer's (Lr) 1,000 mls @ 80 mls/hr IVCONT .[id number] DAYSI Last Admin: 11/24/24 08:08 Dose: 80 mls/hr Home Medications ?Medication ?Instructions ?Recorded ?Confirmed ?Last Taken ?Type montelukast 10 mg tablet 10 mg PO BEDTIME 06/01/20 11/20/24 Unknown History (Singulair) ascorbic acid (vitamin C) 250 mg 250 mg PO DAILY 07/31/22 11/20/24 Unknown History tablet azelastine 205.5 mcg (0.15 %) 1 spray intranasal BID 07/31/22 11/20/24 Unknown History nasal spray blood sugar diagnostic (FreeStyle 07/31/22 11/11/24 Unknown History Lite Strips) blood-glucose meter (FreeStyle 07/31/22 11/11/24 Unknown History Lite Meter kit) bupropion HCl 100 mg tablet,12 hr 100 mg PO BID 07/31/22 11/20/24 Unknown History sustained-release (Wellbutrin SR) dextrose 6 gram/15 mL oral gel 4 g PO Q15M 07/31/22 11/11/24 Unknown History diclofenac sodium 1.5 % topical 1 pkg topical DAILY 07/31/22 11/11/24 Unknown History drops-menthol 10 % roll-on combo pack diphenhydramine HCl 25 mg capsule 25 mg PO BEDTIME PRN Sleep 07/31/22 11/20/24 Unknown History (Benadryl) docusate sodium 100 mg capsule 100 mg PO BID 07/31/22 11/20/24 Unknown History (Colace) ferrous sulfate 325 mg (65 mg 325 mg PO DAILY 07/31/22 11/20/24 Unknown History iron) tablet fluoxetine 40 mg capsule 80 mg PO DAILY 07/31/22 11/20/24 Unknown History fluticasone propionate 110 1 puff inhalation BID 07/31/22 11/11/24 Unknown History mcg/actuation HFA aerosol inhaler (Flovent HFA) fluticasone propionate 50 2 spray intranasal DAILY 07/31/22 11/20/24 Unknown History mcg/actuation nasal spray,suspension (Flonase Allergy Relief) ipratropium bromide 21 mcg (0.03 2 spray intranasal BID-TID 07/31/22 11/20/24 Unknown History %) nasal spray levonorgestrel 21 mcg/24 hr (up to intrauterine 10/12/22 11/11/24 Unknown History 8 years) 52 mg intrauterine device (Mirena) flash glucose sensor (FreeStyle #1 ea 07/22/24 11/11/24 Unknown History Angi 2 Sensor kit) risperidone 2 mg tablet 2 mg PO BEDTIME 07/22/24 11/20/24 Unknown History semaglutide 1 mg/dose (4 mg/3 mL) 1 mg subcut QWEEK 07/22/24 11/20/24 Unknown History subcutaneous pen injector (Ozempic) trazodone 50 mg tablet 50 mg PO BEDTIME 07/22/24 11/20/24 Unknown History mometasone 100 mcg/actuation HFA 1 puff inhalation BID 11/20/24 11/20/24 Unknown History aerosol inhaler (Asmanex HFA) zinc acetate 50 mg (zinc) capsule 50 mg PO DAILY 11/20/24 11/20/24 Unknown History Exam Height,Weight and Vital Signs: Height 5 ft 4 in Weight 120.202 kg Last Vital Signs Temp 98.0 F 11/24/24 08:21 Pulse 84 11/24/24 08:21 Resp 18 11/24/24 08:21 BP 117/65 11/24/24 08:21 Pulse Ox 98 11/24/24 08:21 O2 Del Method Room Air 11/24/24 08:21 Pertinent Lab Results Pertinent Lab Results: Laboratory Tests 11/24/24 11/24/24 07:45 08:01 POC Glucose 107 Urine Test NEGATIVE Airway Mallampati Class: III TM Dist: >3cm Neck ROM: Full Assessment and Plan Assessment Anesthesia Assessment: Anesthesia Plan Discussed and Chart Reviewed Final Anesthetic Review Family History of Problems with Anesthesia: No History of Problems with Anesthesia: No NPO: Yes ASA Class: III Final Preanesthetic Review: No Changes in Pt Med Stat, Meds/Allgs Chart Reviewed, Consent Obtained/Reviewed, Anes Risks/Benef Reviewed and DNR Form (If Appl.) Patient Risk: Intermediate Anesthetic Plan Anesthetic Plan: TIVA Disposition: Standard PACU
--- NOTE | 2024-11-24 09:35 | HO.OPN-COLON ---
Colonoscopy Operative Note Operative Note Date of Service: 11/24/24 Narrative: Operative Information Procedure Description: EGD, Colonoscopy Indication: abn bowel habits Anesthesia: MAC FLEXIBLE TRANSORAL UPPER GASTROINTESTINAL ENDOSCOPY AND COLONOSCOPY PROCEDURE NOTE UPPER ENDOSCOPY Consent: Indications for the procedure and potential complications of bleeding, perforation, reaction to medications and missed diagnosis were discussed with the patient and informed consent was obtained. Instrument: Olympus GIF H 190 J mid size upper endoscope Monitoring: Vital signs and clinical assessment, continuous EKG monitoring, Pulse oximetry, Carbon Dioxide monitoring and blood pressure monitoring were done throughout the procedure. Procedure: The patient was placed in the left lateral decubitis position and pre-procedure medications were administered and a bite block was placed. The endoscope was inserted into the mouth and advanced under direct vision to the third part of duodenum. A careful inspection was made as the upper endoscope was withdrawn including a retroflexed examination of the proximal stomach; Findings and interventions are described below. Findings: Larynx:normal Esophagus: GE junction at 35 cm, diaphragm hiatus at 35 cm, bx taken from GEJ and distal esophagus Stomach: Mild gastritis. Biopsies were obtained. Grade 2 flap valve on retroflexed examination of the cardia. Duodenum: Normal bulb and descending duodenum, bx taken Intervention: Biopsies as noted above, COLONOSCOPY Instrument: Olympus variable stiffness pediatric scope 190L Colonoscopy Monitoring: Vital signs and clinical assessment, continuous EKG monitoring, Pulse oximetry, Carbon Dioxide monitoring and blood pressure monitoring were done throughout the procedure. Colon withdrawal time was 9 minutes. Procedure: The patient was placed in the left lateral decubitis position and pre-procedure medications were administered. After a digital rectal examination of the ano-rectum, the video colonoscope was inserted into the rectum and advanced through the colon to the cecum/TI. The colonoscope was slowly withdrawn in a retrograde panoramic fashion and the colon mucosa was carefully examined including a retroflexed view of the rectum. Findings and interventions are described below. Procedure Difficulty:moderate-pressure applied, tortuous colon Findings: Terminal Scajq-femqxh-r xtaken bx taken from right, left and rectum in different jars Cecum:normal Ascending Colon: normal Transverse Colon -normal Descending Colon:normal Sigmoid Colon: normal Rectum: Retroflexion with small internal hemorrhoids, grade I Anorectum - normal Colon preparation: [place] Bowel Preparation Scale Right colon; 1-2 Transverse colon: 1-2 Left colon; 2 (0 = Unprepared colon segment with mucosa not seen due to solid stool that cannot be cleared. 1 = Portion of mucosa of the colon segment seen, but other areas of the colon segment not well seen due to staining, residual stool and/or opaque liquid. 2 = Minor amount of residual staining, small fragments of stool and/or opaque liquid, but mucosa of colon segment seen well. 3 = Entire mucosa of colon segment seen well with no residual staining, small fragments of stool or opaque liquid) Impression and Post Procedure Diagnosis: Endoscopy Findings: mild gastritis Colonoscopy Findings: tortuous colon internal hemorrhoids Plan: Await Pathology results Repeat Colonoscopy in 1-2 years due to areas of fair prep or earlier if clinically indicated High fiber diet leaflet avoid straining at stool, epsom salts and sitz bath, anusol supps or cream Above findings were reviewed with the patient and relevant handouts were provided if indicated.
[2024-11-24 09:43] VITALS: BP 108/60; PULSE 92; RESP 15; TEMP 36.7; O2SAT 98
[2024-11-24 09:58] VITALS: BP 115/66; PULSE 80; RESP 16; O2SAT 100
[2024-11-24 10:08] LABS: Glucose, Whole Blood 93 mg/dL (60-115)
[2024-11-24 10:13] VITALS: BP 121/65; PULSE 71; RESP 16; TEMP 36.7; O2SAT 100
== END 2024-11-24 10:42 | disposition home or self-care (01) ==
PROVIDERS: Anesthesiology; PCP Nurse Practitioner Primary Care; Visit Provider Internal Medicine Gastroenterology
PROC: (CPT 45380; principal; 2024-11-24 09:20)
DX: R19.4 Change in bowel habit (principal); Q43.2 Other congenital functional disorders of colon; K64.0 First degree hemorrhoids; R10.13 Epigastric pain; K21.9 Gastro-esophageal reflux disease without esophagitis; K29.50 Unspecified chronic gastritis without bleeding; K44.9 Diaphragmatic hernia without obstruction or gangrene; E16.1 Other hypoglycemia; E89.0 Postprocedural hypothyroidism; M06.9 Rheumatoid arthritis, unspecified; R74.8 Abnormal levels of other serum enzymes; J30.2 Other seasonal allergic rhinitis; G47.33 Obstructive sleep apnea (adult) (pediatric); F32.A Depression, unspecified; F90.9 Attention-deficit hyperactivity disorder, unspecified type; Z98.890 Other specified postprocedural states; Z79.51 Long term (current) use of inhaled steroids; Z79.85 Long-term (current) use of injectable non-insulin antidiabetic drugs; Z79.899 Other long term (current) drug therapy
CPT/HCPCS: 45380; 43239; 81025; 82947; 88305; 88313; 88342; J2003; J2704

== ENCOUNTER → 2024-11-24 07:19 | Outpatient (BNV) | payer MEDICAID, SELFPAY | PROVIDERS: PCP Nurse Practitioner Primary Care; Visit Provider Internal Medicine Gastroenterology | DX: K21.9 Gastro-esophageal reflux disease without esophagitis (principal); K29.70 Gastritis, unspecified, without bleeding; R19.4 Change in bowel habit; K64.0 First degree hemorrhoids | CPT/HCPCS: 43239; 45380 ==

== ENCOUNTER 2024-12-09 15:44 | Outpatient (AMB) | payer MEDICAID, SELFPAY ==
--- NOTE | 2024-12-09 15:45 | A.OFFVIS_ITS ---
Vital Signs 12/09/24 15:49 Height 5 ft 6 in Weight 262 lb 5.601 oz BMI 42.3 BP 120/68 Blood Pressure Location Rt brachial Position Sitting Pulse 90 Pulse Source Pulse Oximeter Pulse Oximetry (%) 100 Oxygen Delivery Method Room Air Intake Visit Reasons: S/P double; Dr. Shah Intake Note: ESTABLISHED PATIENT for s/p duo w/ TH Chief Complaint; Pt denies any GI concerns at this time. Licensing Registration Examiner Required: No Accompanied by: Self / Same As Patient Allergies Seasonal Allergies Allergy (Verified 12/09/24 15:45) Sneezing HPI HPI S/P double; Dr. Shah: Details: LAST VISIT: Thrombocytopenia Constipation Transaminitis GERD (gastroesophageal reflux disease) Postprandial epigastric pain Postprandial abdominal bloating Rectal bleed Plan Patient lost 20 lb since changing to Ozempic in the past 4 months. Overall feeling better, she continues to have occasional epigastric pain depending on what she eats. Occasional diarrhea and some blood in her stools. Patient has a history of sleep apnea. No issues with anesthesia in the past. Patient will be sent to speak to surgical schedulers to book procedure. What to expect before during and after procedure discussed with patient. Patient will go for upper endoscopy as well. Stressed the importance of good bowel prep and clear liquid diet day before procedure. Patient will continue Citrucel to help with bulking her stools, however stop fiber 7 days before procedure. Patient will follow-up in our office after the procedure, sooner on as needed basis. She is agreeable to this plan and verbalizes understanding of instructions. She was given the opportunity to ask questions and all questions answered. ? Thank you for allowing me to participate in her care Medications New bisacodyl (Dulcolax (bisacodyl)) take 4 tabs at noon the day before your colonoscopy 20 mg (4 x 5 mg) PO ONCE 1 day 4 tabs 0RF Z12.11 polyethylene glycol 3350 (Miralax) As directed by gastroenterology department at [facility] 238 grams PO ONCE 238 grams 0RF Z12.11 Refilled methylcellulose (laxative) (Citrucel) 500 mg PO DAILY 90 tabs 2RF K59.00 ENDOSCOPY AND COLONOSCOPY: Findings: Larynx:normal Esophagus: GE junction at 35 cm, diaphragm hiatus at 35 cm, bx taken from GEJ and distal esophagus Stomach: Mild gastritis. Biopsies were obtained. Grade 2 flap valve on retroflexed examination of the cardia. Duodenum: Normal bulb and descending duodenum, bx taken Intervention: Biopsies as noted above, COLONOSCOPY Instrument: Olympus variable stiffness pediatric scope 190L Colonoscopy Monitoring: Vital signs and clinical assessment, continuous EKG monitoring, Pulse oximetry, Carbon Dioxide monitoring and blood pressure monitoring were done throughout the procedure. Colon withdrawal time was 9 minutes. Procedure: The patient was placed in the left lateral decubitis position and pre-procedure medications were administered. After a digital rectal examination of the ano-rectum, the video colonoscope was inserted into the rectum and advanced through the colon to the cecum/TI. The colonoscope was slowly withdrawn in a retrograde panoramic fashion and the colon mucosa was carefully examined including a retroflexed view of the rectum. Findings and interventions are described below. Procedure Difficulty:moderate-pressure applied, tortuous colon Findings: Terminal Lwzxj-jtfmdo-x xtaken bx taken from right, left and rectum in different jars Cecum:normal Ascending Colon: normal Transverse Colon -normal Descending Colon:normal Sigmoid Colon: normal Rectum: Retroflexion with small internal hemorrhoids, grade I Anorectum - normal Colon preparation: [place] Bowel Preparation Scale Right colon; 1-2 Transverse colon: 1-2 Left colon; 2 (0 = Unprepared colon segment with mucosa not seen due to solid stool that cannot be cleared. 1 = Portion of mucosa of the colon segment seen, but other areas of the colon segment not well seen due to staining, residual stool and/or opaque liquid. 2 = Minor amount of residual staining, small fragments of stool and/or opaque liquid, but mucosa of colon segment seen well. 3 = Entire mucosa of colon segment seen well with no residual staining, small fragments of stool or opaque liquid) Impression and Post Procedure Diagnosis: Endoscopy Findings: mild gastritis Colonoscopy Findings: tortuous colon internal hemorrhoids Plan: Await Pathology results Repeat Colonoscopy in 1-2 years due to areas of fair prep or earlier if clinically indicated High fiber diet leaflet avoid straining at stool, epsom salts and sitz bath, anusol supps or cream PATHOLOGY Diagnosis A. Duodenum, biopsy: Duodenal mucosa with preserved villi and no specific change. B. Stomach, biopsy: Gastric antral mucosa with minimal chronic inactive gastritis; negative for H. pylori, intestinal metaplasia and dysplasia. C. Gastroesophageal junction, biopsy: Squamocolumnar mucosa with mild chronic inflammation; negative for intestinal metaplasia and dysplasia. D. Esophagus, distal, biopsy: Squamous mucosa with no specific change; no columnar mucosa present. E. Terminal ileum, biopsy: Ileal mucosa with no specific change. F. Colon, right, biopsy: Colonic mucosa with lymphoid aggregates and no specific change; no evidence of microscopic colitis. G. Colon, left, biopsy: Colonic mucosa with lymphoid aggregates and no specific change; no evidence of microscopic colitis. H. Colon, rectum, biopsy: Colonic mucosa with no specific change; no evidence of microscopic colitis TODAY'S VISIT Patient is here today for follow-up and to discuss colonoscopy results. Patient denies any ill effects from the prep, anesthesia or procedure itself. Suboptimal prep to right and transverse colon and recommendation was made for patient to return for colorectal screening in 1-2 years. Few biopsies from colon did not show microscopic colitis, however patient was placed on mesalamine by Dr. Shah. She was taking Nexium and famotidine and her symptoms of acid reflux are suppressed. Patient denies dyspepsia, dysphagia or odynophagia. Patient denies melena, hematochezia, unintentional weight loss or ribbon like stools. Patient denies GI concerning symptoms. [facility] Medical History Reactive hypoglycemia Hypoglycemia Constipation Post-surgical hypothyroidism Elevated liver enzymes Varicose veins of bilateral lower extremities with other complications Obstructive sleep apnea Rheumatoid arthritis Depression ADHD Hypothyroid Morbid obesity Surgical History H/O prior ablation treatment (~2017) History of vein stripping (~2017) Hx of thyroidectomy Family History Father No problems noted. Mother No problems noted. Brother No problems noted. Brother No problems noted. Brother No problems noted. Other No family history of cancer Social History Household Members: Family Household Members Other:: parents Housing: House Are you a primary direct care worker to a significant other at home: No Do you presently have visiting nurse or other home services: No Alcohol intake: never Patient Tobacco Use Status: Never used Tobacco service: No Current occupational status: disabled Female Reproductive History Menstrual Age of Menarche: 13 Physical Exam Vital Signs: Last Vital Signs Pulse 90 12/09/24 15:49 BP 120/68 12/09/24 15:49 Pulse Ox 100 12/09/24 15:49 Oxygen Delivery Method Room Air 12/09/24 15:49 BMI result Body Mass Index 42.3 Const General: healthy appearing and no acute distress Nutritional Appearance: obese Orientation/consciousness: patient oriented x3 Resp Effort & Inspection: normal respiratory effort, able to speak in complete sentences, no tracheal deviation and symmetric chest movement Auscultation: clear to auscultation bilaterally Cardio Rate: regular rate GI Inspection: Yes normal to inspection, No distended and Yes obesity Palpation (GI): Soft to palpation, not firm, nontender and No hepatosplenomegaly present Auscultation: normal bowel sounds General: Yes no CVA tenderness Back/Spine/Pelvis Back: no CVA tenderness Skin General skin exam: elasticity normal, turgor normal and dry skin Neuro General: patient oriented x3 Psych Appearance: grossly normal Mental Status: mental status grossly normal Assessment & Plan Assessment & Plan (1) Constipation: Code(s): K59.00 - Constipation, unspecified Category: Medical Qualifiers: Constipation type: chronic idiopathic constipation Qualified Code(s): K59.04 - Chronic idiopathic constipation (2) Transaminitis: Code(s): R74.01 - Elevation of levels of liver transaminase levels (3) GERD (gastroesophageal reflux disease): Code(s): K21.9 - Gastro-esophageal reflux disease without esophagitis Qualifiers: Esophagitis presence: without esophagitis Qualified Code(s): K21.9 - Gastro-esophageal reflux disease without esophagitis (4) Postprandial epigastric pain: Code(s): R10.13 - Epigastric pain (5) Postprandial abdominal bloating: Code(s): R14.0 - Abdominal distension (gaseous) (6) Rectal bleed: Code(s): K62.5 - Hemorrhage of anus and rectum (7) Status post colonoscopy: Code(s): Z98.890 - Other specified postprocedural states Plan Increase fluid intake and activity to promote better bowel motility. Stop senna and start Dulcolax. Continue mesalamine for few months until next appointment. Patient will continue taking Nexium and famotidine. Avoid dietary triggers and late night snacking. Staying upright for minimum 3 hours after meals discussed with patient. Patient will follow-up in 3 months, sooner on as needed basis. She is agreeable to this plan and verbalizes understanding of instructions. She was given the opportunity to ask questions and all questions answered. Thank you for allowing me to participate in her care Medications: New bisacodyl (Dulcolax (bisacodyl)) 10 mg (2 x 5 mg) PO BEDTIME 180 tabs 4RF Discontinued sennosides Discontinued Reason: Doctor's Order 17.2 mg (2 x 8.6 mg) PO BEDTIME 180 tabs 0RF for constipation K59.00 - Constipation, unspecified Coding Level of Care Code Est Pt Level 4 (97107) Complex EM visit Add On G2211 Diagnoses Chronic idiopathic constipation K59.04 Constipation type: chronic idiopathic constipation Transaminitis R74.01 Gastroesophageal reflux disease without esophagitis K21.9 Esophagitis presence: without esophagitis Postprandial epigastric pain R10.13 Postprandial abdominal bloating R14.0 Rectal bleed K62.5 Status post colonoscopy Z98.890 Time Spent (min) 40 Comment 25 minutes spent with patient and additional 15 minutes spent reviewing her records
[2024-12-09 15:49] VITALS: BP 120/68; PULSE 90; O2SAT 100; BMI 42.3
--- OUTSIDE RECORDS SUMMARY | 2024-12-09 17:32 | XMS_ITS | Encounter Summary ---
Author Organization [employer] Address [address] [place] [address] [address] [place] [address] Care Team Providers Care Senior Java Software Developer Name Role Phone Bernadine Ramos Primary Care Provider [phone] Reason for Visit * Reason Comments Med Refill Encounter Details Date Type Department Care Team (Late st Contact Info) Description 03/21/2023 Refill [facility] [address] [place] [id number] Bernadine Ramos ANP [address] [place] [phone] Heartburn Social History Tobacco Use Types Packs/Day [...] Description 02/04/2025 2:00 PM EDT Office Visit [facility] [address] [place] [phone] Bernadine Ramos ANP [address] [place], [place] [phone] documented as of this encounter Visit Diagnoses Diagnosis Heartburn documented in this encounter Additional Health Concerns Assessment Noted Time PHQ-9 Depression Total Score: 0 03/19/20 23 2:00 PM EDT documented as of this encounter Care Teams Senior Java Software Developer Relationship Specialty Start Date End Date Bernadine Ramos ANP [address] [place] [address] PCP - General Family Medicine 02/16/20 [facility] 07/11/15 documented as of this encounter
--- OUTSIDE RECORDS SUMMARY | 2024-12-09 17:32 | XMS_ITS | Encounter Summary ---
Author Organization [facility] Address [address] [place] [phone] Phone Care Team Providers Care Panel Machine Setter Name Role Phone Austyn Lane MD Primary Care Provider [phone] Encounter Details Date Type Department Care Team (Late st Contact Info) Description 04/06/2013 Documentation [facility] [place] Family Medicine [address] [place] [address] Family Medicine, Physician [address] [place], [place] [phone] Social History Tobacco Use Types Packs/Day Years [...] on filedocumented in this encounter Care Teams Panel Machine Setter Relationship Specialty Start Date End Date Austyn Lane MD [address] [place] [address] TATE Webb [address] PCP - General 04/12/17 11/14/22 documented as of this encounter
--- OUTSIDE RECORDS SUMMARY | 2024-12-09 17:32 | XMS_ITS | Encounter Summary ---
Author Organization [employer] Address [address] [place] [address] [address] [place] [address] Care Team Providers Care Mechanical Manufacturing Engineer Name Role Phone Bernadine Ramos Primary Care Provider [phone] Encounter Details Date Type Department Care Team (Late st Contact Info) Description 05/29/2023 Orders Only [facility] [address] [place] [phone] Provider, MD Estephanie Social History Tobacco Use [...] 02/04/2025 2:00 PM EDT Office Visit [facility] [address] [place] [address] [phone] Bernadine Ramos ANP [address] [place], [place] [phone] documented as of this encounter Procedures Procedure [...] as of this encounter Care Teams Mechanical Manufacturing Engineer Relationship Specialty Start Date End Date Bernadine Ramos ANP [address] [place] [address] PCP - General Family Medicine 02/16/20 [facility] 07/11/15 documented as of this encounter
--- OUTSIDE RECORDS SUMMARY | 2024-12-09 17:32 | XMS_ITS | Encounter Summary ---
Author Organization [facility] Address [address] [place] [phone] Phone Care Team Providers Care Putty Mixer And Applier Name Role Phone Austyn Lane MD Primary Care Provider Encounter Details Date Type Department Care Team (Late st Contact Info) Description 12/01/2012 Documentation [facility] [place] [address] [place] [address] Family Medicine, Physician [address] [place], [place] [phone] Social History Tobacco Use Types Packs/Day Years [...] on filedocumented in this encounter Care Teams Putty Mixer And Applier Relationship Specialty Start Date End Date Austyn Lane MD [address] [place] [address] TATE Webb [address] PCP - General 04/12/17 11/14/22 documented as of this encounter
--- OUTSIDE RECORDS SUMMARY | 2024-12-09 17:32 | XMS_ITS | Encounter Summary ---
Author Organization [facility] Address [address] [place] [id number] Phone Care Team Providers Care Parts Expediter Name Role Phone Austyn Lane MD Primary Care Provider [phone] Encounter Details Date Type Department Care Team (Late st Contact Info) Description 11/10/2009 Documentation EM Family Medicine [address] [place] [address] Family Medicine, Physician [address] [place], [place] [id number] Social History Tobacco Use Types Packs/Day Years [...] on filedocumented in this encounter Care Teams Parts Expediter Relationship Specialty Start Date End Date Austyn Lane MD [address] [place] [address] TATE Webb [address] PCP - General 04/12/17 11/14/22 documented as of this encounter
--- OUTSIDE RECORDS SUMMARY | 2024-12-09 17:32 | XMS_ITS | Encounter Summary ---
Author Organization [facility] Address [address] [place] [address] Phone Care Team Providers Care Caramel Candy Maker Helper Name Role Phone Austyn Lane MD Primary Care Provider [phone] Encounter Details Date Type Department Care Team (Late st Contact Info) Description 04/18/2017 Conversion Encounter [facility] [address] [facility] [place] [address] Social History Tobacco Use Types Packs/Day Years [...] on filedocumented in this encounter Care Teams Caramel Candy Maker Helper Relationship Specialty Start Date End Date Austyn Lane MD [address] [facility] [address] PCP - General 04/12/17 11/14/22 documented as of this encounter
--- OUTSIDE RECORDS SUMMARY | 2024-12-09 17:32 | XMS_ITS | Clinical Summary ---
Author Organization [facility] Address [address] [place] [address] Phone Care Team Providers Care Road Equipment Operator Name Role Phone Bernadine Ramos NP Primary Care Provider [phone] Social History Tobacco Use Types Packs/Day Years Used Date Smoking Tobacco: Never Assessed Comments Unknown Sex and Gender Information Value Date Recorded Sex Assigned at Not on file Legal Sex Female 3:17 PM EST Gender Identity Not on file Sexual Orientation Not on file Plan of Treatment Upcoming Encounters Date Type Department Care Team ([facility] Contact Info) Description 01/11/2025 1:45 PM EDT Consult Orthopedic Surgery [place] [address] [phone] Ismael Paige, DPM [address] [address] Health Maintenance Due Date Last Done Comments Diabetes: Annual GFR (Glomer ular Filtration Rate) 1992 Diabetes: Annual Foot Exam 2002 Diabetes: Annual Retina Eye Exam 2002 DTaP,Tdap,and Td Vaccines (1 - Tdap) 2011 Hepatitis B Vaccines (1 of 3 - 19+ 3-dose series) 2011 Pneumococcal Vaccine: Pediat rics (0 to 5 Years) and At-Risk Patients (6 to 64 Years) (1 of 2 - PCV) 2011 Cervical Cancer Screening: P ap Smear 2013 COVID-19 Vaccine ( - 2023-2 5 season) 2024 Cholesterol Screening (Lipid Panel) 11/24/2024 Depression Screening 11/24/2024 Diabetes: Annual Urine Albumin-Creatinine Ratio (uACR) 11/24/2024 Diabetes: Blood Sugar Contro l Test (HGBA1C) 11/24/2024 HIV Screening 11/24/2024 Hepatitis C Screening 11/24/2024 Social Influencers of Health Screening 11/24/2024 Influenza Vaccine (Season Ended) 2025 HIB Vaccines Aged Out No longer eligi ble based on patient's age to complete this topic HPV Vaccines Aged Out No longer eligi ble based on patient's age to complete this topic Hepatitis A Vaccines Aged Out No long er eligible based on patient's age to complete this topic IPV Vaccines Aged Out No longer eligi ble based on patient's age to complete this topic MMR Vaccines Aged Out No longer eligi ble based on patient's age to complete this topic Meningococcal ACWY Vaccine Aged Out N o longer eligible based on patient's age to complete this topic Meningococcal B Vaccine Aged Out No l onger eligible based on patient's age to complete this topic RSV Immunization Patients Un karen 20 months Aged Out No longer eligible b ased on patient's age to complete this topic Varicella Vaccines Aged Out No longer eligible based on patient's age to complete this topic Insurance MEDICAID - [place] Care Teams Road Equipment Operator Relationship Specialty Start Date End Date Bernadine Ramos NP [address] [place] [phone] PCP - General 10/02/23
--- OUTSIDE RECORDS SUMMARY | 2024-12-09 17:32 | XMS_ITS | Clinical Summary ---
Author Organization [employer] Address [address] [facility] [address] [place] [address] Care Team Providers Care Masonry Teacher Name Role Phone Vazquez Louis Primary Care Provider [phone] Allergies No known active allergies Medications albuterol 108 (90 Base) MCG/ACT inhaler inhale 2 puff by inhalation route every 4 hours as needed 1 Active buPROPion SR (Wellbutrin SR) 100 MG 12 hr tablet Take 1 tablet by mouth every 12 (twelve) hours. 2 Active Diclofenac Sodium 1 % gel Apply topically every 8 (eight) hours. 1 Active glucagon 1 MG injection inject 1 mg by subcutaneous route once if unable to take sugar by mouth or if unconscious, repeat in 15min if inadequate response 2 Active glucose-vitamin C 4-6 GM-MG oral gel take 4 tablets as needed for blood sugars <60 and/or symptoms of hypoglycemia, then recheck blood sugar 15 minutes later 2 Active hydrocortisone (Anusol-HC) 2.5 % rectal cream apply by topical route 4 times every day to the affected area(s) 0 Active levothyroxine (Synthroid, Levoxyl) 200 MCG tablet Take 1 tablet by mouth at bed time. Active levothyroxine (Synthroid, Levoxyl) 50 MCG tablet Take 1 tablet by mouth. Active polyethylene glycol, PEG, 3350 (Glycolax) 17 GM/SCOOP powder take (17G) by oral route every day mixed with 8 oz. water, juice, soda, coffee or tea for constipation 1 Active polyvinyl alcohol (Liquifilm Tears) 1.4 % ophthalmic solution apply 1-2 drops in both eyes 4-6 times per day 9 Active sennosides (Senokot) 8.6 MG tablet take 2 tablet by oral route every day as needed for constipation 1 Active cholecalciferol (Vitamin D-3) 50 MCG (1999 UT) capsule TAKE 1 CAPSULE BY MOUTH DAILY 3 Active FLUoxetine (PROzac) 40 MG capsule TAKE 2 CAPSULES BY MOUTH EVERY DAY 3 Active glucagon 1 MG/ML injection PLEASE SEE ATTACHED FOR DETAILED DIRECTIONS 2 Active FreeStyle lancets USE 1 LANCET BY TO SKIN ROUTE 3 TIMES EVERY DAY 2 Active traZODone (Desyrel) 50 MG tablet TAKE 1 TABLET BY MOUTH EVERYDAY AT BEDTIME 3 Active diphenhydrAMINE (BENADryl) 25 MG tabletIndication s:Other allergic rhinitis TAKE 1-2 TABLETS BY MOUTH DAILY AT BEDTIME NEEDED 60 tablet 3 Active Continuous Blood Gluc Stone Setter (FreeStyle Angi 2 Depew) deviceIndication s:Type 2 diabetes mellitus with hypoglycemia without coma, without long-term current use of insulin (CMS/HCC),Hypogl ycemia Use w/ sensor 1 each 3 Active Blood Pressure kitIndications:E levated blood pressure reading 1 kit in the morning. 1 kit 3 Active ferrous sulfate 325 (65 Fe) MG tabletIndication s:Iron deficiency anemia, unspecified iron deficiency anemia type TAKE 1 TABLET BY MOUTH EVERY DAY WITH VITAMIN C. DO NOT TAKE WITH DAIRY PRODUCTS OR THYROID MEDICINE 90 tablet 3 4 Active Mometasone Furoate (Asmanex HFA) 100 MCG/ACT aerosol TAKE 1 PUFF BY MOUTH TWICE A DAY 13 g 1 4 Active FREESTYLE TEST STRIPS test stripIndications :Type 2 diabetes mellitus with hypoglycemia without coma, without long-term current use of insulin ([facility]/HCC) TEST BLOOD SUGAR UP TO 3 TIMES A DAY EVERY DAY NEEDED DIRECTED 100 strip 3 4 Active clotrimazole (Lotrimin) 1 % creamIndications :Tinea cruris Apply topically 2 times daily. 60 g 1 4 Active montelukast (Singulair) 10 MG tablet TAKE 1 TABLET BY MOUTH EVERY DAY IN THE EVENING 90 tablet 3 4 Active witch danny-glycerin (Tucks) pad Use as needed up to 4x/d 100 each 11 4 Active semaglutide (Ozempic) 2 MG/1.5ML solution pen-injectorIndi cations:Type 2 diabetes mellitus with hypoglycemia without coma, without long-term current use of insulin (CMS/[facility]) Inject 1 mg under the skin 1 (one) time per week. 2 each 12 4 Active Continuous Glucose Sensor (FreeStyle Angi 2 Sensor) miscIndications: Type 2 diabetes mellitus with hypoglycemia without coma, without long-term current use of insulin (CMS/HCC),Hypogl ycemia USE 1 SENSOR EVERY 14 DAYS. 2 each 11 4 Active fluticasone (Flonase) 50 MCG/ACT nasal sprayIndications :Non-seasonal allergic rhinitis, unspecified trigger TAKE 1-2 SPRAYS EACH NOSTRIL 1-2 TIMES DAILY NEEDED FOR ALLERGIES 48 mL 2 4 Active omeprazole (PriLOSEC) [address] capsuleIndicatio ns:Heartburn TAKE 1 CAPSULE BY MOUTH TWICE A DAY BEFORE A MEAL 180 capsule 1 5 Active Ascorbic Acid (vitamin C) 250 MG tabletIndication s:Iron deficiency anemia, unspecified iron deficiency anemia type TAKE 1 TABLET BY MOUTH EVERY DAY WITH IRON TABLET 90 tablet 3 5 Active Emollient (Eucerin Advanced Repair) creamIndications :Callus,Dry skin Apply twice daily to clean, dry feet 454 g 11 5 Active Active Problems Problem Noted Date Diagnosed Date [...] Encounters Date Type Department Care Team Description 12/02/2024 Patient Outreach [address] [address] Vazquez Louis ANP Care Coordination (CM/CHW outreach) 11/27/[address] [address] Vazquez Louis ANP Medication Question 11/24/2024 Orders Only GENERIC EXTERNAL DATA DEPARTMENT Provider, Generic External Data 11/17/[address] [address] Vazquez Louis ANP Care Management (C3- initial assessment/ enrollment. lvm) 11/16/2024 Patient Outreach [address] [address] Vazquez Louis ANP Care Coordination (CM/CHW appt reminder) 11/13/2024 Population Health Risk Score [facility] () Department [address] [place] [phone] Provider, Population Health Generic 11/11/2024 Orders Only GENERIC EXTERNAL DATA DEPARTMENT Provider, Generic External Data 11/03/2024 2:15 PM EST Office Visit [address] [address] Vazquez Louis ANP Encounter for immunization (Primary Dx); Type 2 diabetes mellitus with hypoglycemia without coma, without long-term current use of insulin (CMS/[facility]); Callus; Dry skin 11/03/2024 Travel 11/02/[address] [address] Vazquez Louis ANP Chart Prep 10/28/2024 Patient Outreach [address] [address] Vazquez Louis ANP Care Coordination (CM/CHW appt) 10/20/[address] [address] Vazquez Louis ANP Nurse Triage 10/16/2024 Patient Outreach [address] [address] Vazquez Louis ANP Care Coordination (CM/CHW outreach) 10/16/2024 Telephone [facility] [address] [place] [address] Schuyler Anand, APOLLO Care Management ([facility]- chart review) 10/15/2024 Orders Only [facility] External Provider, [facility] 10/14/2024 Refill [facility] [address] [place] [address] Vazquez Louis ANP Iron deficiency anemia, unspecified iron deficiency anemia type 09/19/2024 Refill [facility] [address] [place] [address] Vazquez Louis ANP Heartburn 09/16/2024 Telephone [facility] [address] [place] [address] Vazquez Louis ANP Durable Medical Equipment (Shower chair) from Last 3 Months Immunizations Name Administration [...] MMR 10/08/1996,10/24/1993 Meningococcal MCV4P ACYW-135 09/17/2006 Novel Farvdkbay-O0C2-25, all formulations 06/21/2009 Pneumococcal Conjugate PCV 20 [...] Description 02/04/2025 2:00 PM EDT Office Visit [facility] [address] [place], [place] [phone] Vazquez Louis ANP [address] [place] [address] Health Maintenance Due Date Last Done Comments HIV Screening 1992 Eye Exam 2002 Alcohol/Substance Use Screening 2004 Family Planning (PISQ) 2007 Hepatitis C Screening 2010 Diabetes: Urine Protein Screening 2011 Hepatitis A Vaccines (2 of 2 - 2-dose series) 08/31/2011 03/01/2011 COVID-19 Vaccine ( season) 2024 Diabetes: Hemoglobin A1C 02/03/2025 03 025, 06/23/2024, 02/13/2024, Additional history exists Depression [...] Procedure Name Priority Date/Time Associated Diagnosis Comments GLUCOSE, WHOLE BLOOD Routine 11/24/2024 9:56 AM EDT HEMATOXYLIN AND EOSIN STAIN Routine 11/24/2024 9:10 AM EDT GLUCOSE, WHOLE BLOOD Routine 11/24/2024 8:01 AM EDT HCG, QL, URINE Routine 11/24/2024 7:45 AM EDT TSH Routine 11/11/2024 10:49 AM EDT T4, FREE Routine 11/11/2024 10:49 AM EDT LIPID PANEL, STANDARD Routine 11/11/2024 10:49 AM EDT Type 2 diabetes mellitus with hypoglycemia without coma, without long-term current use of insulin ([facility]) POCT GLYCATED HEMOGLOBIN, TOTAL Routine 11/03/2024 2:32 PM EST Type 2 diabetes mellitus with hypoglycemia without coma, without long-term current use of insulin ([facility]) POCT GLUCOSE Routine 11/03/2024 2:26 PM EST Type 2 diabetes mellitus with hypoglycemia without coma, without long-term current use of insulin ([facility]) CT HEAD WO CONTRAST Routine 10/15/2024 6 :11 PM EST ZZZ HISTORICAL HPV E6/E7 RFLX BECCA 16 18/45 Routine 02/07/2021 3:19 PM EDT HM PAP/HPV Routine 02/07/2021 from Last 3 Months or Most Recently Relevant to Health Maintenance Results * Glucose, Whole Blood (11/24/2024 9:56 AM EDT) Only the most recent of2 resultswithin the time period is included. Glucose, Whole Blood 93 60 - 115 mg/dL [facility] Comment:METER #: [id number] 11/24/2024 9:56 AM EDT 11/24/2024 10:08 AM EDT us Generic External Data Provider LAB BLOOD ORDERAB LES Final Result [facility] [address] [place] [phone] * Hematoxylin and Eosin Stain (11/24/2024 9:10 AM EDT) 11/24/2024 9:10 AM EDT 11/24/2024 10:22 AM EDT Narrative [facility] - 11/26/2024 10:27 AM EDT ----- ------- Name: Dolores Baltazar ?Age/Sex: 34/F ? : 1990 Unit#: [id number] ?? Attend Dr: Kezia Shah MD ?Re11/24/24 ?Status: DEP SDC ? Location: HO.SSS ?Disch: ? ----- ------- SPEC : [id number] ? RECD: 11/24/24-1021 ? STATUS: ??SOUT ? REQ NUM: [id number] ? MEG: 11/24/24-909 ? SUBM DR: Kezia Shah MD ? ENTERED: ??11/24/24-9335 ?SP TYPE: Surgical ? OTHR : VAZQUEZ LOUIS COORDINATE MEASURING MACHINE TECHNICIAN ? ORDERED: ??HE Stain/21, Gross Micro L4/8, IHC, Special st. 2, H. pylori, AB/PAS ? Diagnosis ?? A. ??Duodenum, biopsy: ??Duodenal mucosa with preserved villi and no specific change. ? B. ??Stomach, biopsy: ??Gastric antral mucosa with minimal chronic inactive gastritis; ?? negative for H. pylori, intestinal metaplasia and dysplasia. ? C. ??Gastroesophageal junction, biopsy: ??Squamocolumnar mucosa with mild chronic ?? inflammation; negative for intestinal metaplasia and dysplasia. ? D. ??Esophagus, distal, biopsy: ??Squamous mucosa with no specific change; no columnar ?? mucosa present. ? E. ??Terminal ileum, biopsy: ??Ileal mucosa with no specific change. ? F. ??Colon, right, biopsy: ??Colonic mucosa with lymphoid aggregates and no specific ?? change; no evidence of microscopic colitis. ? G. ??Colon, left, biopsy: ??Colonic mucosa with lymphoid aggregates and no specific change; ?? no evidence of microscopic colitis. ? H. ??Colon, rectum, biopsy: ??Colonic mucosa with no specific change; no evidence of ?? microscopic colitis. ?Clinical History Pre-Op Dx: ??Abnormal bowel habits Post-Op Dx: Mild gastritis, tortuous colon, hemorrhoids ?Microscopic Description Microscopic sections reviewed. ??Immunostain for H. pylori on B is negative. ??AB/PAS on C is negative for intestinal metaplasia. ??Controls stain appropriately. ? Material Received ?? A. Duodenum biopsies ?? B. Stomach biopsies ?? C. GE junction biopsies ?? D. Distal esophagus ?? E. TI biopsies ?? F. Right side colon biopsies ?? G. Left side colon biopsies ?? H. Rectum biopsies ? CONTINUED ON NEXT PAGE ----- ------- Name: Dolores Baltazar ?Age/Sex: 34/F ? : 1990 Unit#: [id number] ?? Attend Dr: Kezia Shah MD ?Re11/24/24 ?Status: DEP SDC ? Location: HO.SSS ?Disch: ? ----- ------- SPEC : [id number] ? RECD: 11/24/24 ? STATUS: ??SOUT ? REQ NUM: [id number] ? MEG: 11/24/24-909 ? SUBM DR: Kezia Shah MD ? ENTERED: ??11/24/24-1027 ?SP TYPE: Surgical ? OTHR DR: VAZQUEZ LOUIS NP ? ORDERED: ??HE Stain/21, Gross Micro L4/8, IHC, Special st. 2, H. pylori, AB/PAS ? Gross Description Received in eight parts. Part A: ??Received in formalin labeled duodenum biopsies? are 3 hdz-pink irregular tissue fragments ranging from 0.1-0.25 cm, submitted in toto in a cassette labeled A. Part B: ??Received in formalin labeled stomach biopsies? are 4 hdz irregular tissue fragments ranging from 0.1-0.25 cm, submitted in toto in a cassette labeled B. Part C: ??Received in formalin labeled ?GE junction biopsies? are 2 silvestre-pink irregular tissue fragments measuring 0.15 and 0.2 cm, submitted in toto in a cassette labeled C. Part D: ??Received in formalin labeled distal esophagus biopsies? are 2 silvestre-white irregular and rectangular tissue fragments measuring 0.3 and 0.4 cm, submitted in toto in a cassette labeled D. Part E: ??Received in formalin labeled ?TI biopsies? are 3 hdz-pink irregular tissue fragments ranging from 0.1-0.2 cm, submitted in toto in a cassette labeled E. Part F: ??Received in formalin labeled right side colon biopsies are 3 silvestre- white irregular and rectangular tissue fragments ranging from 0.1-0.25 cm, submitted in toto in a cassette labeled F. Part G: ??Received in formalin labeled left side colon biopsies are 4 hdz irregular and rectangular tissue fragments ranging from 0.15-0.3 cm, submitted in toto in a cassette labeled G. Part H: ??Received in formalin labeled rectum biopsies are 2 hdz irregular tissue fragments each measuring 0.2 cm, submitted in toto in a cassette labeled H. CEDS Special studies ordered and performed: Immunostain for H. pylori on B1; AB/PAS stains on C1. Copies To: ?? Kezia Shah MD ?? [facility] ?? [address] ?? [place] [address] ?? [phone] ? CONTINUED ON NEXT PAGE ----- ------- Name: Dolores Baltazar ?Age/Sex: 34/F ? : 1990 Unit#: [id number] ?? Attend Dr: Kezia Shah MD ?Re11/24/24 ?Status: DEP SDC ? Location: HO.SSS ?Disch: ? ----- ------- SPEC : [id number] ? RECD: 11/24/24-1022 ? STATUS: ??SOUT ? REQ NUM: [id number] ? MEG: 11/24/24-909 ? SUBM DR: Kezia Shah MD ? ENTERED: ??11/24/24-1028 ?SP TYPE: Surgical ? OTHR : VAZQUEZ LOUIS NP ? ORDERED: ??HE Stain/21, Gross Micro L4/8, IHC, Special st. 2, H. pylori, AB/PAS ? Copies To: ??(Continued) ?? VAZQUEZ LOUIS NP ?? [facility] ?? [address] [facility] [address] ?? [place] [address] ?? [phone] ----- ------- Signed (signature on file) Ewa González 11/26/24 1027 ? ----- ------- ? END OF REPORT ? us Generic External Data Provider LAB BLOOD ORDERAB LES Final Result [facility] [address] [place] [address] [phone] * HCG, Qualitative, Urine (11/24/2024 7:45 AM EDT) Urine NEGATIVE NEGATIVE [facility] Comment:This test was develo ped to detect early . Falsenegative results may occur after the 5th - 7th week ofpregnancy when using this test method. If clinicallyindicated, consider a serum hCG. 11/24/2024 7:45 AM EDT 11/24/2024 7:56 AM EDT us Generic External Data Provider LAB URINE ORDERAB LES Final Result Performing Organization Address City/[facility]/ZIP Co de Phone Number [facility] [address] [place] [phone] * (ABNORMAL) TSH (11/11/2024 10:49 AM EDT) Thyroid Stimulating Hormone 60.00(H) 0.32 - 4.0 uIU/mL [facility] Comment:Note: A sustained TS H level above 2.5 uIU/mL may warrant further investigation. TSH 3rd Generation ([facility]) 11/11/2024 10:4 9 AM EDT 11/11/2024 10:49 AM EDT us Generic External Data Provider LAB BLOOD ORDERAB LES Final Result Performing Organization Address [facility] Co de Phone Number [facility] [address] [place] [phone] * T4, Free (11/11/2024 10:49 AM EDT) Free T4 (Free Thyroxine) 1.23 0.71 - 1.85 ng/dL [facility] 11/11/2024 10:4 9 AM EDT 11/11/2024 10:49 AM EDT us Generic External Data Provider LAB BLOOD ORDERAB LES Final Result Performing Organization Address City/[facility]/ZIP Co de Phone Number [facility] [address] [place] [phone] * (ABNORMAL) Lipid Panel, Standard (11/11/2024 10:49 AM EDT) Triglycerides 182(H) <150 mg/dL [facility] Comment:Desirable Triglyceri de: less than 150 mg/dLBorderline High Triglyceride 150-199 mg/dLHigh Triglyceride: 200-499 mg/dLVery High Triglyceride: greater than or equal to 5OO mg/dL Cholesterol 192 <200 mg/dL [facility] Comment:Desirable Cholestero l: less than 200 mg/dLBorderline High Cholesterol: 200-239 mg/dLHigh Cholesterol: greater than 239 mg/dL LDL Cholesterol Calculated 125(H) <100 mg/dL [facility] Comment:Desirable LDL: less than 100 mg/dLNear Optimal/Above Optimal LDL: 110- 129 mg/dLBorderline High LDL: 130-159 mg/dLHigh LDL: 160-189 mg/dLVery High LDL: greater than or equal to 190 mg/dL HDL Cholesterol 31(L) >40 mg/dL [facility] Comment:Desirable HDL: great er than 40 mg/dL Note: This HDL assay may give artificially low results in patients with liver disease. Blood Venous blood specimen / Unknown 11/11/2024 10:49 AM EDT 11/11/2024 10:49 AM EDT us Vazquez ROBBINS LAB BLOOD ORDERABLES Final Resul t [facility] [address] [place] [phone] * (ABNORMAL) POCT HGB A1C (11/03/2024 2:32 PM EST) Hemoglobin A1C 6.2(A) 4.0 - 6.0 % QC Media Lot # [id number] Lot# Expiration Date Blood 11/03/2024 2:32 PM EST us Vazquez Louis ANP POINT OF CARE TEST ENTER/EDIT OR DERABLES Final Result * POCT Glucose (11/03/2024 2:26 PM EST) Glucose Blood, POC 89 60 - 200 mg/dL [employer] Media Lot # [id number] Lot# Expiration Date [id number] Blood Capillary blood specimen / Unknown 11/03/2024 2:26 PM EST us Vazquez Louis ANP POINT OF CARE TEST ENTER/EDIT OR DERABLES Final Result * CT Head w/o Contrast (10/15/2024 6:11 PM EST) Anatomical Region Laterality Modality Head, Neck Computed Tomogra phy 10/15/2024 6:11 PM EST Narrative 10/15/2024 6:13 PM EST ? [facility] ?[address] ?[place] [address] ? CT Scan Report ? Signed ? Patient: Dolores Baltazar ?MR#: [id number] ?? [id number] ? : 1990 ?Acct:[id number] ? Age/Sex: 34 / F ?ADM Date: 10/15/24 ? Loc: HO.ED ? Attending Dr: ? Ordering Physician: Sayda Sanders COORDINATE MEASURING MACHINE TECHNICIAN ?? Date of Service: 10/15/24 ?? Procedure(s): CT head/brain wo IV con ?? Accession Number(s): [id number] ? cc: VAZQUEZ LOUIS COORDINATE MEASURING MACHINE TECHNICIAN; Sayda Sanders COORDINATE MEASURING MACHINE TECHNICIAN ? Report Number: ?? [id number]: Total DLP = ??616.00 mGy-cm ? CLINICAL [...] ? 10/15/241811 ? DD/ 10 ? TD/TT: 10/15/24 1811 ? Relish Blender: ? Procedure Note Donmark anthony, Image - 10/15/[address] [place] [address] [address] Scan Report Signed Patient: Lou Baltazar#: [id number] : 1990Acct:[id number] Age/Sex: 34 / FADM Date: 10/15/24 Loc: HO.ED Attending Dr: Ordering Physician: Sayda Sanders NP Date of Service: 10/15/24 Procedure(s): CT head/brain wo IV con Accession Number(s): [id number] cc: VAZQUEZ LOUIS COORDINATE MEASURING MACHINE TECHNICIAN; Sayda Sanders NP Report Number: [id number]: Total DLP = 616.00 mGy-cm CLINICAL HISTORY: [...] in OV> 10/15/241811 DD/ 10 TD/TT: 10/15/241810 Relish Blender: us [facility] External Provider IMG CT PROCEDURES Edited Result - Final * HPV E6/E7 RFLX BECCA 16 18/45 (02/07/2021 3:19 PM EDT) HPV 16 RNA [facility] HPV 18/45 RNA [facility] HPV E6 E7 ADD [facility] HPV mRNA E6/E7 rflx Not Detected Not Detected [facility] Comment: Methodology: Designer Writer-Mediated Amplification This assay detects E6/E7 viral messenger RNA (mRNA) from 14 high-risk HPV types (16,18,31,33,35,39,45,51,52,56,58,59,66,68). The analytical performance characteristics of this assay have been determined by [employer]. The modifications have not been cleared or approved by the FDA. This assay has been validated pursuant to the CLIA regulations and is used for clinical purposes. For additional information, please refer to http://education.[employer]/faq/YNH759g9 (This link if provided for information/ educational purposes only.) THIS TEST WAS PERFORMED AT: [employer] [address] [place] [address] [address] [place], [place] ??[phone] KARIE PEREZ MD 02/07/2021 3:19 PM EDT Giorgio Mock MD HISTORICAL/NON ORDERABLE LABS Fi nal Result [facility] [address] * Hm Pap Smear (02/07/2021) Historical Provider HEALTH MAINTENANCE Final Result from Last 3 Months or Most Recently Relevant to Health Maintenance [facility] Care Teams Masonry Teacher Relationship Specialty Start Date End Date Vazquez Louis ANP [address] [place] [phone] PCP - General Family Medicine 02/16/20 [facility] 07/11/15
--- OUTSIDE RECORDS SUMMARY | 2024-12-09 17:32 | XMS_ITS | Encounter Summary ---
Author Organization [facility] Address [address] [place] [phone] Phone Care Team Providers Care Wink Cutter Operator Name Role Phone Austyn Lane MD Primary Care Provider [phone] Encounter Details Date Type Department Care Team (Late st Contact Info) Description 12/21/2011 Documentation [facility] [address] [place] [address] Family Medicine, Physician [address] [place], [place] [phone] Social History Tobacco Use Types Packs/Day Years [...] on filedocumented in this encounter Care Teams Wink Cutter Operator Relationship Specialty Start Date End Date Austyn Lane MD [address] [place] [address] [place] [address] PCP - General 04/12/17 11/14/22 documented as of this encounter
--- OUTSIDE RECORDS SUMMARY | 2024-12-09 17:32 | XMS_ITS | Encounter Summary ---
Author Organization [facility] Address [address] [place] [address] Phone Care Team Providers Care Tank Storage Supervisor Name Role Phone Austyn Lane MD Primary Care Provider [phone] Encounter Details Date Type Department Care Team (Late st Contact Info) Description 09/29/2012 Documentation [facility] Family Medicine [address] [place] [address] Family Medicine, Physician [address] [place], [place] [phone] Social History Tobacco Use Types Packs/Day Years [...] on filedocumented in this encounter Care Teams Tank Storage Supervisor Relationship Specialty Start Date End Date Austyn Lane MD [address] [place] [address] [place] [address] PCP - General 04/12/17 11/14/22 documented as of this encounter
--- OUTSIDE RECORDS SUMMARY | 2024-12-09 17:32 | XMS_ITS | Clinical Summary ---
Author Organization [facility] Address [address] [place] [address] Phone Care Team Providers Care Systems Engineer Name Role Phone Unavailable Primary Care Provider [...] complete this topic Procedures * Due to [place] state law, this organization might not be sharing sensitive test results. Procedure Name Priority Date/Time Associated Diagnosis Comments CHLAMYDIA AND GONORRHEA, AMPLIFIED Routine 08/08/2010 1:32 PM EST from Last 3 Months or Most Recently Relevant to Health Maintenance Results * Due to [place] state law, this organization might not be sharing sensitive test results. * Chlamydia and Gonorrhoea, Amplified (08/08/2010 1:32 PM EST) Pathologist [facility] URINE CHLAMYDIA AMP PROBE NEGATIVE [facility] Comment: NO CHLAMYDIA TRACHOMATIS RNA DETECTED IN THIS PATIENT'S SAMPLE. ? (REFERENCE RANGE/NORMAL VALUE: NOT DETECTED) ? URINE GC AMP PROBE NEGATIVE [facility] Comment: NO NEISSERIA GONORRHOEAE RNA DETECTED IN THIS PATIENT'S SAMPLE. ? (REFERENCE RANGE/NORMAL VALUE: NOT DETECTED) ? NOTE: THIS TEST USES LITIGATION LEGAL ASSISTANT MEDIATED AMPLIFICATION METHOD TO DETECT rRNA FROM [...] AGENTS. 08/08/2010 1:32 PM EST Narrative [facility] - 08/08/2010 1:32 PM EST URINE CHLAMYDIA GC AMP PROBE us Veronica Lux NP LAB MICROBIOLOGY - GENERAL OR DERABLES Final Result [facility] [address] [place] [address], [place] from Last 3 Months or Most Recently Relevant to Health Maintenance
--- OUTSIDE RECORDS SUMMARY | 2024-12-09 17:32 | XMS_ITS | Encounter Summary ---
Author Organization [employer] Address [address] [facility] 7t [place] [address] Care Team Providers Care Counselor At Law Name Role Phone Bernadine Ramos Primary Care Provider [phone] Reason for Visit * Reason Onset Date Comments Medication Question 11/27/2024 Encounter Details Date Type Department Care Team ([facility] st Contact Info) Description 11/27/2024 Telephone [facility] [address] [place] [address] Bernadine Ramos ANP [address] [place] [address] Medication Question Social History Tobacco Use Types Packs/Day Years [...] encounter Miscellaneous Notes * Telephone Encounter - Ashish Mazariegos - 11/27/2024 3:56 PM EDT Tc from pt requesting to see if its possible to get the Dexcom g7 or g6. Pt would like to know if that would be covered by the Insurance. Contact pt at [phone] documented in this encounter Plan of Treatment Upcoming Encounters Date Type Department Care Team (Late st Contact Info) Description 02/04/2025 2:00 PM EDT Office Visit [facility] [address] [place] [address] Bernadine Ramos ANP [address] [place] [address] documented as of this encounter Visit Diagnoses Not on filedocumented in this encounter Additional Health Concerns Assessment Noted Time PHQ-9 Depression Total Score: 8 06/23/20 24 10:48 AM EDT documented as of this encounter Care Teams Counselor At Law Relationship Specialty Start Date End Date Bernadine Ramos ANP [address] [place] [address] PCP - General Family Medicine 02/16/20 [facility] 07/11/15 documented as of this encounter
--- OUTSIDE RECORDS SUMMARY | 2024-12-09 17:32 | XMS_ITS | Encounter Summary ---
Author Organization [facility] Address [address] [place] [address] Phone Care Team Providers Care Manager Of Software Development Name Role Phone Austyn Lane MD Primary Care Provider [phone] Encounter Details Date Type Department Care Team (Late st Contact Info) Description 09/26/2012 Documentation [facility] [address] [place] [address] Family Medicine, Physician [address] [place], [place] [id number] Social History Tobacco Use Types Packs/Day Years [...] on filedocumented in this encounter Care Teams Manager Of Software Development Relationship Specialty Start Date End Date Austyn Lane MD [address] [place] [address] [place] [address] PCP - General 04/12/17 11/14/22 documented as of this encounter
--- OUTSIDE RECORDS SUMMARY | 2024-12-09 17:32 | XMS_ITS | Encounter Summary ---
Author Organization [employer] Address [address] [facility] 7[address] [place] [address] Care Team Providers Care Retail Furniture Sales Name Role Phone Bernadine Ramos Primary Care Provider [phone] Reason for Visit * Reason Onset Date Comments FYI 03/22/2023 Encounter Details Date Type Department Care Team ([facility] st Contact Info) Description 03/22/2023 Telephone [facility] [address] [place] [address] Bernadine Ramos ANP [address] [place] [address] FY Social History Tobacco Use Types Packs/Day Years [...] - 03/22/2023 2:39 PM EDT Tc from [place] with [facility] stating will be renewing pt care of plan on March 27 will be seeing pt 5 x a week for medication. documented in this encounter Plan of Treatment Upcoming Encounters Date Type Department Care Team (Late st Contact Info) Description 02/04/2025 2:00 PM EDT Office Visit [facility] [address] [place] [address] Bernadine Ramos ANP [address] [place] [address] documented as of this encounter Visit Diagnoses Not on filedocumented in this encounter Additional Health Concerns Assessment Noted Time PHQ-9 Depression Total Score: 0 03/19/20 23 2:00 PM EDT documented as of this encounter Care Teams Retail Furniture Sales Relationship Specialty Start Date End Date Bernadine Ramos ANP [address] [place] [address] PCP - General Family Medicine 02/16/20 [facility] 07/11/15 documented as of this encounter
== END 2024-12-09 16:04 | disposition home or self-care (01) ==
LOC: HO.HGI 15:44
PROVIDERS: PCP Nurse Practitioner Primary Care; Visit Provider Nurse Practitioner Family
DX: K59.04 Chronic idiopathic constipation (principal); R74.01 Elevation of levels of liver transaminase levels; K21.9 Gastro-esophageal reflux disease without esophagitis; R10.13 Epigastric pain; R14.0 Abdominal distension (gaseous); K62.5 Hemorrhage of anus and rectum; Z98.890 Other specified postprocedural states
CPT/HCPCS: 99214

== ENCOUNTER → 2024-12-09 15:44 | Outpatient (BNVA) | payer MEDICAID, SELFPAY | PROVIDERS: PCP Nurse Practitioner Primary Care; Visit Provider Nurse Practitioner Family | DX: K59.04 Chronic idiopathic constipation (principal); R74.01 Elevation of levels of liver transaminase levels; K21.9 Gastro-esophageal reflux disease without esophagitis; K62.5 Hemorrhage of anus and rectum; R10.13 Epigastric pain; R14.0 Abdominal distension (gaseous); Z98.890 Other specified postprocedural states | CPT/HCPCS: 99212 ==

== ENCOUNTER 2025-02-10 15:03 | Outpatient (REF) | payer MEDICAID, SELFPAY ==
[2025-02-10 15:18] LABS: MANUAL DIFF FLAG NO
[2025-02-10 15:36] LABS: White Blood Count 13.3 X10*3/uL (4.8-10.8)
[2025-02-10 15:37] LABS: Basophils Absolute Auto 0.1 X10*3/uL (0.0-0.2); Basophils Percent Auto 0.5 % (0-2); Eosinophils Absolute Auto 0.1 X10*3/uL (0.0-0.4); Eosinophils Percent Auto 0.9 % (0-4); Hemoglobin 11.1 g/dl (12.0-16.0); Imm Gran Abs Auto 0.09 X10*3/uL (0.00-0.03); Imm Gran Pct Auto 0.7 % (0.0-0.4); Lymphocytes Absolute Auto 2.4 X10*3/uL (1.2-4.9); Lymphocytes Percent Auto 17.9 % (20-40); Mean Corpuscular HGB Conc 30.8 g/dl (31.0-35.0); Mean Corpuscular Hemoglobin 24.4 pg (27.0-33.0); Mean Corpuscular Volume 79.3 fL (80.0-98.0); Mean Platelet Volume 12.1 fL (9.4-12.3); Monocytes Absolute Auto 0.8 X10*3/uL (0.1-1.2); Monocytes Percent Auto 6.2 % (2-11); Neutrophils Absolute Auto 9.9 x10*3/uL (2.0-8.3); Neutrophils Percent Auto 73.8 % (45-73); Platelet Count 221 X10*3/uL (160-400); Red Blood Count 4.54 X10*6/uL (4.20-5.50); Red Cell Distribution Width 16.3 % (11.0-16.0)
[2025-02-10 16:42] LABS: Free T4 (Free Thyroxine) 0.44 ng/dL (0.71-1.85); Thyroid Stimulating Hormone > 100.00 uIU/mL (0.32-4.0)
--- OUTSIDE RECORDS SUMMARY | 2025-02-10 17:20 | XMS_ITS | Encounter Summary ---
Author Organization [employer] Address [address] [place] [address] 7[address] [place] [address] Care Team Providers Care Delicatessen Goods Stock Clerk Name Role Phone Bernadine Ramos Primary Care Provider [phone] Reason for Visit * Reason Onset Date Comments FYI 03/22/2023 Encounter Details Date Type Department Care Team ([facility] st Contact Info) Description 03/22/2023 Telephone [facility] [address] [place] [address] Bernadine Ramos ANP [address] [place] [address] FYI Social History Tobacco Use Types Packs/Day [...] - 03/22/2023 2:39 PM EDT Tc from [place] with [facility] stating will be renewing pt care of plan on March 27 will be seeing pt 5 x a week for medication. documented in this encounter Plan of Treatment Not on file documented as of this encounter Visit Diagnoses Not on filedocumented in this encounter Additional Health Concerns Assessment Noted Time PHQ-9 Depression Total Score: 0 03/19/20 23 2:00 PM EDT documented as of this encounter Care Teams Delicatessen Goods Stock Clerk Relationship Specialty Start Date End Date Bernadine Ramos ANP [address] [place] [address] PCP - General Family Medicine 02/16/20 [facility] 07/11/15 documented as of this encounter
== END 2025-02-10 15:04 | disposition home or self-care (01) ==
LOC: HO.LAB 15:03
PROVIDERS: Absent Provider Student in an Organized Health Care Education/Training Program; PCP Nurse Practitioner Primary Care; Visit Provider Nurse Practitioner Primary Care
DX: E03.9 Hypothyroidism, unspecified (principal); D50.0 Iron deficiency anemia secondary to blood loss (chronic)
CPT/HCPCS: 36415; 84439; 84443; 85025

== ENCOUNTER 2025-02-11 15:49 | Outpatient (AMB) | payer MEDICAID, SELFPAY ==
--- NOTE | 2025-02-11 15:51 | MHC.OFFVIS ---
Vital Signs 02/11/25 15:52 Height 5 ft 6 in Weight 256 lb 13.416 oz BMI 41.5 BP 102/68 Blood Pressure Location Rt brachial Position Sitting Pulse 100 Pulse Source Pulse Oximeter Pulse Oximetry (%) 98 Oxygen Delivery Method Room Air Intake Visit Reasons: Elevated TSH Intake Note: Patient present today for Elevated TSH. Basket Hand Braider Required: No Accompanied by: Self / Same As Patient Allergies Seasonal Allergies Allergy (Verified 02/11/25 15:53) Sneezing HPI Comments Details: 34 YO Female with a PMHx of Graves disease status post total thyroidectomy when she was 17 years old, now with post surgical Hypothyroidism who is seen in F/U for hypothyroidism . Prior HPI She has a longstanding history of hypothyroidism with TSH >100. She initially reported good compliance, so she completed a levothyroxine abosorption test in our office in 2021. This revealed no issues with absorption as her FT4 raised appropriately. She then admitted to noncompliance with her medication. She then was compliant with tirosint 175 mcg PO daily and TSH improved significantly, but TSH remained approximately 10. Her dose of levothyroxine was increased to 250 mcg PO daily. She reports good compliance TSH was low recently in 2022 and levothyroxine was decreased to 200 mcg She was also diagnosed with reactive hypoglycemia based on her 4 hour OGTT revealing decline in her blood sugar from 149 to 66 at the 3-4 hour time point. She was recommended to follow a very low carbohydrate diet and reports hypoglycemia has resolved with this. Interval history 08/13/24 Labs 08/12/24 showed TSH of >100 and fee T4 <0.42 Patient tells me she has a nurse who observes her take 200 mcg of levothyroxine daily , around 9 AM, waits an hour before eats breakfast or drinks coffee Was on turlicity for the past year for weigth management and type 2 DM Started Ozempic currenlty on 1 mg weekly started in June or July 2024 Weight down by 20 lbs in the past month She is also taking omeprazole 40 mg daily at the same as her thyroid medication She is denying any fatigue , no cold intolerance , having diarrhea and rectal bleeding concerning for colitis saw GI pending EGD and colonoscopy in November 2023, reporting hair loss LMP 08/02/24, periods are regular Currently not sexually active, has IUD Interval history 11/12/23 08/13/2024: Levothyroxine increased to 225 mcg daily by taking 200+ 25 mcg pills daily 11/11/2024: TSH 60, free T4 1.23 Lost 15 lbs since Aug 2024 Reports still strict adherence it from OZempic Pending EGD and colonoscopy November 24 Interval history 02/11/2025 Currently on levothyroxine 250 mcg daily with 200+ 50 mcg pills, takes at 9 AM 02/10/2025: TSH greater than 100, free T4 low at 0.44 Nurse: couldnt speak with today Iron: takes it at night Laxatives and multivitamins : takes at 10 30 AM Nexium: afternoon Celiac disease ruled out back in 2021 with negative tissue transglutaminase levels Had a colonoscopy earlier this year in 2024, following with GI for chronic constipation, no microscopic colitis, nothing significant on colonoscopy or EGD, however she was started on mesalamine. Physical exam General: sitting comfortably in no acute distress HEENT: normocephalic/atraumatic, moist oral mucosa Neck: supple, symmetrical, no thyromegaly, surgical scar noted Cardiac: normal heart sounds Pulm: normal breath sounds B/L, no added breath sounds Abd: not distended, no tenderness Extremities: no edema, no signs of myxedema Neuro: AAO x3, Speech: normal, no facial droop, moving all 4 extremities Labs: Laboratory Tests 11/02/22 11/02/22 11/02/22 07:49 07:49 07:49 Sodium 140 Potassium 3.9 Creatinine 0.69 Estimated GFR > 60 Hemoglobin A1c % 6.0 Glucose Tolerance Insulin Level 22 Proinsulin C-Peptide Beta-Hydroxybutyrate/Acetoacetate TSH 0.62 Free T4 1.25 DHEA Sulfate Insulin-like GF II Random Cortisol ACTH 34 11/02/22 11/02/22 11/02/22 07:49 07:49 07:50 Sodium Potassium Creatinine Estimated GFR Hemoglobin A1c % Glucose Tolerance Insulin Level Proinsulin 16.4 C-Peptide 3.53 Beta-Hydroxybutyrate/Acetoacetate 0.05 TSH Free T4 DHEA Sulfate 85 Insulin-like GF II 458 Random Cortisol 9.2 ACTH Laboratory Tests 12/13/23 08/12/24 11:25 15:43 TSH 1.16 > 100.00 H Free T4 0.94 < 0.42 L Laboratory Tests 08/12/24 11/11/24 15:43 10:49 TSH > 100.00 H 60.00 H Free T4 < 0.42 L 1.23 Laboratory Tests 11/11/24 02/10/25 10:49 15:16 TSH 60.00 H > 100.00 H Free T4 1.23 0.44 L [facility] Medical History Reactive hypoglycemia Hypoglycemia Constipation Post-surgical hypothyroidism Elevated liver enzymes Varicose veins of bilateral lower extremities with other complications Obstructive sleep apnea Rheumatoid arthritis Depression ADHD Hypothyroid Morbid obesity Surgical History History of colonoscopy H/O prior ablation treatment (~2017) History of vein stripping (~2017) Hx of thyroidectomy Family History Father No problems noted. Mother No problems noted. Brother No problems noted. Brother No problems noted. Brother No problems noted. Other No family history of cancer Social History Household Members: Family Household Members Other:: parents Housing: House Are you a primary childcare worker to a significant other at home: No Do you presently have visiting nurse or other home services: No Alcohol intake: never Patient Tobacco Use Status: Never used Tobacco service: No Current occupational status: disabled Female Reproductive History Menstrual Age of Menarche: 13 Physical Exam Vital Signs: Last Vital Signs Pulse 100 02/11/25 15:52 BP 102/68 02/11/25 15:52 Pulse Ox 98 02/11/25 15:52 Oxygen Delivery Method Room Air 02/11/25 15:52 BMI result Body Mass Index 41.5 Assessment & Plan Assessment & Plan (1) Hypothyroid: Code(s): E03.9 - Hypothyroidism, unspecified Category: Medical Qualifiers: Hypothyroidism type: acquired Qualified Code(s): E03.9 - Hypothyroidism, unspecified Plan: 34-year-old female with past medical history significant for Graves disease status post total thyroidectomy when she was 17 years old, now with postsurgical hypothyroidism who is coming today for follow up. She is currently on 250 mcg of levothyroxine daily. She has had previous issues with non adherence to the medication resulting in consistently elevated TSH levels of greater than 100. Labs from December 2023 showed she was biochemically euthyroid on the 200 mcg of Tirosint with a TSH of 1.16 and free T4 of 0.94, at some point Tirosint was not being covered by insurance so she was switched back to generic levothyroxine. then labs from 08/12/2024 show her TSH is greater than 100 and free T4 is less than 0.42. Her weight based dosing currently comes to 200 mcg of levothyroxine daily. 08/13/2024: Levothyroxine increased to 225 mcg daily by taking 200+ 25 mcg pills daily 11/11/2024: TSH 60, free T4 1.23 She is promising me that she is taking her medication every day and she has a nurse who monitors medication administration from Saturday to Saturday and then her father who is also her COMPUTER NUMERIC CONTROL SETTER on Saturday and Saturday. I discussed with her importance of compliance to medication as high TSH can result in myxedema coma and . Patient endorsed that she realizes the importance of taking medication regularly and she has been taking it regularly. Since back when she was on Tirosint she had TSH within goal, at this time I will prescribe Tirosint solution since generic levothyroxine seems to have affected by poor absorption, with a ineffective control of TSH. At this time I will again send a prescription for Tirosint, since patient is endorsing that her TSH was normal at that time when she was taking Tirosint. She does take her laxatives and multivitamins an hour after she takes the thyroid medication, at this time I have stressed importance to take the thyroid pill completely separately intake everything else at least 4 hours after. Keep the iron pill in the evening. I tried calling her nurse today to speak with her personally but we could not reach her during the appointment. I have asked her to tell her nurse to give me a call during office hours. Plan: -switch back to Tirosint capsule 250 mcg daily (200+ 50 mcg pill) -repeat blood work in 6 weeks -follow up in 8 weeks (2) Elevated TSH: Code(s): R79.89 - Other specified abnormal findings of blood chemistry Category: Medical Plan: See above Plan I spent 30 minutes in reviewing the record, seeing the patient and documenting in the medical record. Orders: Orders Thyroid Stimulating Hormone 6 Weeks E03.9 - Hypothyroidism, unspecified, R79.89 - Other specified abnormal findings of blood chemistry Free T4 (Free Thyroxine) 6 Weeks E03.9 - Hypothyroidism, unspecified, R79.89 - Other specified abnormal findings of blood chemistry Medications: New levothyroxine (Tirosint) 200 mcg PO DAILY 30 caps 6RF levothyroxine (Tirosint) Take with 200 mcg capsule daily for a total dose of 250 mcg daily Brand name only, no substitution allowed, JORGE A 0 50 mcg PO DAILY 90 caps 5RF Discontinued levothyroxine Take with 200 mcg capsule daily for a total 250 mcg daily Discontinued Reason: Doctor's Order 50 mcg PO DAILY 30 tabs 6RF levothyroxine Take with 50 mcg tablet daily for a total 250 mcg daily Discontinued Reason: Doctor's Order 200 mcg PO DAILY 30 tabs 7RF Coding Level of Care Code Est Pt Level 4 (11247) Diagnoses Acquired hypothyroidism E03.9 Hypothyroidism type: acquired Elevated TSH R79.89 Time Spent (min) 30
[2025-02-11 15:52] VITALS: BP 102/68; PULSE 100; O2SAT 98; BMI 41.5
--- OUTSIDE RECORDS SUMMARY | 2025-02-11 18:09 | XMS_ITS | Encounter Summary ---
Author Organization [employer] Address [address] [place] [address] [address] [place] [address] Care Team Providers Care Geometrician Name Role Phone Bernadine Ramos Primary Care Provider [phone] Reason for Visit * Reason Onset Date Comments FYI 03/22/2023 Encounter Details Date Type Department Care Team ([facility] st Contact Info) Description 03/22/2023 Telephone [facility] MEDICINE [address] [place] [address] Bernadine Ramos ANP [address] [place] [address] FYI Social History Tobacco Use Types Packs/Day [...] - 03/22/2023 2:39 PM EDT Tc from [place] with [facility] stating will be renewing pt [...] documented as of this encounter Care Teams Geometrician Relationship Specialty Start Date End Date Bernadine Ramos ANP [address] [place] [address] PCP - General Family Medicine 02/16/20 [facility] 07/11/15 documented as of this encounter
== END 2025-02-11 16:11 | disposition home or self-care (01) ==
LOC: HO.ENCR 15:50
PROVIDERS: PCP Nurse Practitioner Primary Care; Visit Provider Student in an Organized Health Care Education/Training Program
DX: E03.9 Hypothyroidism, unspecified (principal); R79.89 Other specified abnormal findings of blood chemistry
CPT/HCPCS: 99214

== ENCOUNTER → 2025-02-11 15:49 | Outpatient (BNVA) | payer MEDICAID, SELFPAY | PROVIDERS: PCP Nurse Practitioner Primary Care; Visit Provider Student in an Organized Health Care Education/Training Program | DX: E05.00 Thyrotoxicosis with diffuse goiter without thyrotoxic crisis or storm (principal); E03.9 Hypothyroidism, unspecified; R79.89 Other specified abnormal findings of blood chemistry | CPT/HCPCS: 99212 ==

== ENCOUNTER 2025-02-23 09:19 | Outpatient (REF) | payer MEDICAID, SELFPAY ==
[2025-02-23 09:30] LABS: MANUAL DIFF FLAG NO
[2025-02-23 09:49] LABS: Basophils Absolute Auto 0.1 X10*3/uL (0.0-0.2); Basophils Percent Auto 0.4 % (0-2); Eosinophils Absolute Auto 0.1 X10*3/uL (0.0-0.4); Eosinophils Percent Auto 0.8 % (0-4); Hematocrit 33.1 % (37.0-47.0); Hemoglobin 10.1 g/dl (12.0-16.0); Imm Gran Abs Auto 0.08 X10*3/uL (0.00-0.03); Imm Gran Pct Auto 0.6 % (0.0-0.4); Lymphocytes Absolute Auto 2.3 X10*3/uL (1.2-4.9); Lymphocytes Percent Auto 17.8 % (20-40); Mean Corpuscular HGB Conc 30.5 g/dl (31.0-35.0); Mean Corpuscular Hemoglobin 24.1 pg (27.0-33.0); Mean Platelet Volume 11.6 fL (9.4-12.3); Monocytes Percent Auto 7.7 % (2-11); Neutrophils Absolute Auto 9.4 x10*3/uL (2.0-8.3); Neutrophils Percent Auto 72.7 % (45-73); Platelet Count 208 X10*3/uL (160-400); Red Blood Count 4.19 X10*6/uL (4.20-5.50); Red Cell Distribution Width 16.2 % (11.0-16.0)
--- OUTSIDE RECORDS SUMMARY | 2025-02-23 09:56 | XMS_ITS | Encounter Summary ---
Author Organization [employer] Address [address] [place] [address] 7t [place] [address] Care Team Providers Care Order Booker Name Role Phone Bernadine Ramos Primary Care Provider [phone] Reason for Visit * Reason Onset Date Comments FYI 03/22/2023 Encounter Details Date Type Department Care Team ([facility] st Contact Info) Description 03/22/2023 Telephone [facility] MEDICINE [address] [place] [address] Bernadine Ramos ANP [address] [place] [address] FYI Social History Tobacco Use Types Packs/Day [...] - 03/22/2023 2:39 PM EDT Tc from [place] with [facility] stating will be renewing pt care of [...] documented as of this encounter Care Teams Order Booker Relationship Specialty Start Date End Date Bernadine Ramos ANP [address] [place] [address] PCP - General Family Medicine 02/16/20 [facility] 07/11/15 documented as of this encounter
== END 2025-02-23 09:20 | disposition home or self-care (01) ==
LOC: HO.LAB 09:19
PROVIDERS: PCP Nurse Practitioner Primary Care; Visit Provider Nurse Practitioner Primary Care
DX: D72.829 Elevated white blood cell count, unspecified (principal)
CPT/HCPCS: 36415; 85025

== ENCOUNTER 2025-03-09 14:38 | Emergency (ER) | payer MEDICAID, SELFPAY ==
--- OUTSIDE RECORDS SUMMARY | 2025-01-14 07:30 | XMS_ITS | Continuity of Care Document ---
Author Organization [facility] Address [address] [place] [address] [address] [place] [address] Phone Care Team Providers Care Supervisor Accounting Clerks Name Role Phone Terry MAURICIO, IRINA, Pillo CALDERON Unavailable U navailable Procedures Procedure Date Office/Oupt E&M New Pt 45 Mins- CT & [place] Duplex Scan-extrem Veins; Comp- CT & [place] Advance Directives Directive Yes / No Effective Date File Name No Information Encounters Encounter Description Practice Location Reason(s) For Visit Diagnoses Date Provider Providers Copied on Encounter Office/Oupt E&M New Pt 45 Mins- [place] & [place] [facility], [address] [place] [address] [address], [id number], [place] tel:[phone] [facility] Chronic venous hypertension (idiopathic) with other complications of bilateral lower extremityType 2 diabetes mellitus without complicationsRe stless legs syndrome 5 Terry MAURICIO RVT, RPVI Robert. [address] [facility] [address], [place], [place], [id number] , [place]. tel:[phone] Referring Provider: Bernadine Ramos LABOR UNION BUSINESS REPRESENTATIVE, [address] [facility] [address], [place], [address]. tel:[phone] [facility], [address] [place] [address] [address] [place], [id number], [place] tel:[phone] [facility] Chronic venous hypertension (idiopathic) with other complications of bilateral lower extremity 5 Terry MAURICIO RVT, KVNG Ferro. [address] [facility], [address], [facility] [id number] , [place]. tel:[phone] Referring Provider: Bernadine Ramos NP, [address] [facility] [address], [place], [address]. tel:[phone] Family History Family Member Type Diagnosis Age At Onset No Information Payers Payer name Insurance type Covered libertarian ID Authoriza tion(s) Medical Assistance [facility] [id number] Social History Type Description Quantity Date Captured Comments Alcohol Use Details Unknown Caffeine Use Details Unknown Tobacco Use Status Current non-smoker Smoking Status Never Smoker Non-Smoking Tobacco Use Details : No Details Available : No Details Available Sex Female Vital Signs Date / Time: Height Weight BMI Pulse Rate Blood Pressure Temperature Respiratory Rate Body Surface Area Head Circumference Head Circ. Percentile Wt./Vince. Percentile BMI percentile Pulse Ox Inhaled Ox 116.120 kg (256.00 lbs) 45.4 2 kg/m eter (2) 126/76 mm[Hg] Chief Complaint And Reason For Visit No Information Reason For Referral Reason For Referral No Information Plan Of Treatment Date Type Action Status Goal Diet education completed Referral Ordered: Weight management: Referral to physician timeframe: 3 Months (related to Body mass index (BMI) 45.0-49.9, adult) ordered Appointment Dolores Baltazar BOOKED Appointment Dolores Baltazar BOOKED Appointment Dolores Baltazar BOOKED Appointment Dolores Baltazar BOOKED Appointment Dolores Baltazar BOOKED Appointment Dolores Baltazar BOOKED Appointment Dolores Baltazar BOOKED Appointment Dolores Baltazar BOOKED Appointment Dolores Baltazar BOOKED History Of Present Illness Encounter Date Complaint History Of Prese nt Illness No Information Functional Status Date Functional Assessmen t No Information Instructions Date Instruction Additional Infor mation Giving Encouragement to exercise Related to Body mass index (BMI) 45.0-49.9, adult Lifestyle education Related to B brianna mass index (BMI) 45.0-49.9, adult Patient education booklet given Related to Chronic venous hypertension (idiopathic) with other complications of bilateral lower extremity Diet education Related to Body mass index (BMI) 45.0-49.9, adult Pre and post instruc tions reviewed and provided Related to Chronic venous hypertension (idiopathic) with other complications of bilateral lower extremity Assessments Type Assessment Date No Information Patient Care Teams Name Effective Dates (start - stop) Status Members No Information
--- OUTSIDE RECORDS SUMMARY | 2025-03-03 23:59 | XMS_ITS | Continuity of Care Document ---
Author Organization [facility] As [facility] Address [address] [place] [address] [address] [place] [address]- Care Team Providers Care Children Teacher Name Role Phone Richard KING, Bernadine Amos Primary Care Physician [place] [facility] [place] 03/03/[address] [place], [place] [address] Encounter Type: Triage Allergies, Adverse Reactions, Alerts No Known Allergies Medications albuterol CFC free 90 mcg/inh inhalation aerosol 0 Refill(s), inhale 2 puff by inhalation route every 4 hours as needed, Refills 0, 05/30/21 8:00:00 PM EDT Start Date: 05/30/21 Status: Ordered Repeat number: 1 ascorbic acid 250 mg oral tablet 3 Refill(s), TAKE 1 TABLET EVERY DAY WITH IRON PILL, 0 Refills, 11/08/22 7:00:00 PM EST, Partial fillupon patient request if the prescription is for a schedule II opioid drug. Start Date: 11/08/22 Status: Ordered Repeat number: 1 buPROPion 100 mg/12 hours (SR) oral tablet, extended release 60 each, 0 Refill(s), TAKE 1 TABLET BY MOUTH TWICE A DAY, 0 Refills, 04/30/23 3:17:00 PM EDT, Partial fill upon patient request if the prescription is for a schedule II opioid drug. Start Date: 04/30/23 Status: Ordered Repeat number: 1 cholecalciferol 2000 intl units oral capsule 0 Refill(s), TAKE 1 CAPSULE BY MOUTH DAILY, 0 Refills, 09/23/22 7:00:00 PM EST, Partial fill upon patient request if the prescription is for a schedule II opioid drug. Start Date: 09/23/22 Status: Ordered Repeat number: 1 Compression Stockings See Instructions, # 3 pair, Refills 5, Tot. Refills 5, Maintenance, surgical, knee length 20-30 mm Hg dx: left leg edema, 09/17/13 4:16:26 PM EST, Compound Start Date: 09/17/13 Status: Ordered Quantity: 3.0 Unit: pair Repeat number: 6 famotidine 10 mg oral tablet 1 tablet = 10 mg, By Mouth, 2 times a day, # 28 tablet, 0 Refills, Maintenance, 08/23/21 4:08:00 PMEST, Tablet, [facility]/pharmacy #[id number], Partial fill upon patient request if the prescription is for a schedule II opioid drug. Start Date: 08/23/21 Status: Ordered Quantity: 28.0 Unit: tablet Repeat number: 1 ferrous sulfate 324 mg (65 mg elemental iron) oral delayed release tablet By Mouth, Daily, 0 Refills, Maintenance, 01/30/13 10:39:03 AM EDT Start Date: 01/30/13 Status: Ordered Repeat number: 1 Flovent HFA 110 mcg/inh inhalation aerosol 12 Gm, 0 Refill(s), INHALE 1 PUFF BY MOUTH TWICE A DAY, 0 Refills, 04/30/23 3:16:00 PM EDT, Partial fill upon patient request if the prescription is for a schedule II opioid drug. Start Date: 04/30/23 Status: Ordered Repeat number: 1 FLUoxetine 40 mg oral capsule 60 each, 0 Refill(s), TAKE 2 CAPSULES BY MOUTH EVERY DAY, 0 Refills, 04/30/23 3:23:00 PM EDT, Partial fill upon patient request if the prescription is for a schedule II opioid drug. Start Date: 04/30/23 Status: Ordered Repeat number: 1 fluticasone 50 mcg/inh nasal spray 16 Gm, 0 Refill(s), SPRAY 2 SPRAYS INTO EACH NOSTRIL EVERY DAY, 0 Refills, 04/30/23 3:23:00 PM EDT, Partial fill upon patient request if the prescription is for a schedule II opioid drug. Start Date: 04/30/23 Status: Ordered Repeat number: 1 ipratropium nasal 21 mcg/inh spray 2 Unknown, Nasal, 0 Refill(s), Administer 2 sprays into affected nostril(s) every 12 (twelve) hours., 0 Refills, 08/16/19 7:00:00 PM EST, Partial fill upon patient request if the prescription is for a schedule II opioid drug. Start Date: 08/16/19 Status: Ordered Repeat number: 1 levothyroxine 150 mcg (0.15 mg) oral tablet 1 tablet = 150 mcg, By Mouth, Daily, please call [phone] to schedule a follow up appt, # 30 tablet, 2 Refills, Maintenance, 05/24/14 2:24:48 PM EDT, Tablet, [facility]/pharmacy #[id number] Start Date: 05/24/14 Stop Date: 08/22/14 Status: Ordered Quantity: 30.0 Unit: tablet Repeat number: 3 montelukast 10 mg oral tablet 90 each, 0 Refill(s), TAKE 1 TABLET BY MOUTH EVERY DAY IN THE EVENING, Refills 0, 04/30/23 3:23:00 PM EDT, Partial fill upon patient request if the prescription is for a schedule II opioid drug. Start Date: 04/30/23 Status: Ordered Repeat number: 1 omeprazole 40 mg oral enteric coated capsule 180 each, 0 Refill(s), TAKE 1 CAPSULE BY MOUTH TWICE A DAY BEFORE A MEAL, 0 Refills, 04/30/23 3:23:00 PM EDT, Partial fill upon patient request if the prescription is for a schedule II opioid drug. Start Date: 04/30/23 Status: Ordered Repeat number: 1 ondansetron 4 mg oral tablet, disintegrating 1 tablet = 4 mg, By Mouth, Every 8 hours, PRN Nausea & Vomiting, # 9 tablet, 0 Refills, Maintenance, 08/23/21 4:08:00 PM EST, Tablet, [facility]/pharmacy #[id number], Partial fill upon patient request if the prescription is for a schedule II opioid drug. Start Date: 08/23/21 Stop Date: 08/26/21 Status: Ordered Quantity: 9.0 Unit: tablet Repeat number: 1 Polyethylene Glycol 3350 0 Refill(s), take (17G) by oral route every day mixed with 8 oz. water, juice, soda, coffee or tea for constipation, 0 Refills, 12/01/20 8:00:00 PM EDT, Partial fill upon patient request if the prescription is for a schedule II opioid drug. Start Date: 12/01/20 Status: Ordered Repeat number: 1 Prozac 20 mg oral capsule 3 capsule = 60 mg, By Mouth, Daily, # 30 capsule, 0 Refills, Maintenance, 05/24/11 8:39:13 AM EDT, Capsule Start Date: 05/24/11 Status: Ordered Quantity: 30.0 Unit: capsule Repeat number: 1 ranitidine 150 mg oral tablet 1 tablet = 150 mg, By Mouth, 2 times a day, # 28 tablet, 0 Refills, Maintenance, 11/21/17 3:51:08 AMEDT, Tablet Start Date: 11/21/17 Stop Date: 12/05/17 Status: Ordered Quantity: 28.0 Unit: tablet Repeat number: 1 Risperidone = 1.5 mg, By Mouth, 2 times a day, 0 Refills, Maintenance, 03/12/13 2:46:27 PM EDT Start Date: 03/12/13 Status: Ordered Repeat number: 1 traZODone 50 mg oral tablet 30 each, 0 Refill(s), TAKE 1 TABLET BY MOUTH EVERYDAY AT BEDTIME, Refills 0, 04/30/23 3:22:00 PM EDT, Partial fill upon patient request if the prescription is for a schedule II opioid drug. Start Date: 04/30/23 Status: Ordered Repeat number: 1 Trulicity Pen 0.75 mg/0.5 mL subcutaneous solution 0.75 Unknown, Subcutaneous, 1 Refill(s), Inject 0.75 mg under the skin 1 (one) time per week., 0 Refills, 03/18/23 8:00:00 PM EDT, Partial fill upon patient request if the prescription is for a schedule II opioid drug. Start Date: 03/18/23 Status: Ordered Repeat number: 1 Problem List Condition Confirmation Course Effective Dates Status H ealth Status Informant Asthma Confirmed Active Depression Confirmed Active History of Graves Disease Confirmed Active Acid reflux Confirmed Active Graves' disease Confirmed Active Hyperthyroidism Confirmed Active Rheumatoid arthritis Confirmed Active Severe obesity Confirmed Active Sleep apnea Confirmed Active Social History Social History Type Response Smoking Status Never (less than 100 in lifetime) entered on: 03/08/23 Sex Sex Representation Female (finding) Patient Care team information Care Team Personnel Name: Bernadine Ramos NP Position: [facility] Outreach Member Role: PCP Address: [address] [place] [phone] Telecom: Care Team Related Persons Name: EDUARDA HERZOG Name: JAIRO HERZOG Insurance Providers Guarantor name: SAMARA Health Plan Information #: 1 Payer: [employer] Payer Identifier: SAMARA Member Number: [id number] Group Number: [id number] Subscriber Identifier: [id number] Relationship to Subscriber: self Coverage Type: MEDICAID Coverage Verification Date: SAMARA Telecom: SAMARA Address: NA
[2025-03-09 15:00] VITALS: BP 121/69; PULSE 98; RESP 18; TEMP 36.4; O2SAT 99; BMI 40.0
--- NOTE | 2025-03-09 15:05 | ED.GENADULT ---
HPI - General Adult General Chief complaint: Recheck/Abnormal Lab/Rx Stated complaint: abnormal lab count not feeling well Time Seen by Provider: 03/09/25 18:02 Source: patient Limitations: no limitations History of Present Illness ED Provider: Verna Palma PA-C HPI narrative: 34-year-old female with a history of postsurgical hypothyroidism, depression, anemia, thrombocytopenia, constipation, morbid obesity, rheumatoid arthritis, ADHD who presents with a weakness of unclear duration. Patient states she is followed by Hematology, she states she had recent labs performed, and that she was concerned for her thyroid function and blood counts. Associated fatigue and generalized malaise. Patient states she has developed oral cold sores over the past day. Denies fever, active cough or cold symptoms. Related Data Home Medications ?Medication ?Instructions ?Recorded ?Confirmed montelukast 10 mg tablet 10 mg PO BEDTIME 06/01/20 11/20/24 (Singulair) ascorbic acid (vitamin C) 250 mg 250 mg PO DAILY 07/31/22 11/20/24 tablet azelastine 205.5 mcg (0.15 %) 1 spray intranasal BID 07/31/22 11/20/24 nasal spray blood sugar diagnostic (FreeStyle 07/31/22 11/11/24 Lite Strips) blood-glucose meter (FreeStyle 07/31/22 11/11/24 Lite Meter kit) bupropion HCl 100 mg tablet,12 hr 100 mg PO BID 07/31/22 11/20/24 sustained-release (Wellbutrin SR) dextrose 6 gram/15 mL oral gel 4 g PO Q15M 07/31/22 11/11/24 diclofenac sodium 1.5 % topical 1 pkg topical DAILY 07/31/22 11/11/24 drops-menthol 10 % roll-on combo pack diphenhydramine HCl 25 mg capsule 25 mg PO BEDTIME PRN Sleep 07/31/22 11/20/24 (Benadryl) docusate sodium 100 mg capsule 100 mg PO BID 07/31/22 11/20/24 (Colace) ferrous sulfate 325 mg (65 mg 325 mg PO DAILY 07/31/22 11/20/24 iron) tablet fluoxetine 40 mg capsule 80 mg PO DAILY 07/31/22 11/20/24 fluticasone propionate 110 1 puff inhalation BID 07/31/22 11/11/24 mcg/actuation HFA aerosol inhaler (Flovent HFA) fluticasone propionate 50 2 spray intranasal DAILY 07/31/22 11/20/24 mcg/actuation nasal spray,suspension (Flonase Allergy Relief) ipratropium bromide 21 mcg (0.03 2 spray intranasal BID-TID 07/31/22 11/20/24 %) nasal spray levonorgestrel 21 mcg/24 hr (up to intrauterine 10/12/22 11/11/24 8 years) 52 mg intrauterine device (Mirena) flash glucose sensor (FreeStyle #1 ea 07/22/24 11/11/24 Angi 2 Sensor kit) semaglutide 1 mg/dose (4 mg/3 mL) 1 mg subcut QWEEK 07/22/24 11/20/24 subcutaneous pen injector (Ozempic) trazodone 50 mg tablet 50 mg PO BEDTIME 07/22/24 11/20/24 mometasone 100 mcg/actuation HFA 1 puff inhalation BID 11/20/24 11/20/24 aerosol inhaler (Asmanex HFA) zinc acetate 50 mg (zinc) capsule 50 mg PO DAILY 11/20/24 11/20/24 omeprazole 40 mg capsule,delayed 40 mg PO BID 12/09/24 release risperidone 0.5 mg tablet 0.5 mg PO BEDTIME 12/09/24 Previous Rx's ?Medication ?Instructions ?Recorded cholecalciferol (vitamin D3) 50 50 mcg PO DAILY #30 caps 09/24/22 mcg (2,000 unit) capsule polyethylene glycol 3350 17 17 g PO DAILY #238 grams 06/23/24 gram/dose oral powder hydrocortisone 2.5 % topical cream 1 appl VA BID-QID PRN Itching #30 07/22/24 with perineal applicator grams (Anusol-HC) albuterol sulfate 90 mcg/actuation 1 inh inhalation QID PRN shortness 08/22/24 aerosol inhaler of breath or wheezing #6.7 grams famotidine 20 mg tablet 20 mg PO BEDTIME #90 tabs 10/14/24 methylcellulose (laxative) 500 mg 500 mg PO DAILY #90 tabs 10/21/24 tablet (Citrucel) esomeprazole magnesium 40 mg 40 mg PO DAILY #90 caps 10/28/24 capsule,delayed release bisacodyl 5 mg tablet,delayed 10 mg (2 x 5 mg) PO BEDTIME #180 12/09/24 release (Dulcolax (bisacodyl)) tabs levothyroxine 200 mcg capsule 200 mcg PO DAILY #30 caps 02/11/25 (Tirosint) levothyroxine 50 mcg capsule 50 mcg PO DAILY #90 caps 02/11/25 (Tirosint) valacyclovir 1 gram tablet 2,000 mg (2 x 1 gram) PO ONCE #2 03/09/25 tabs mesalamine 0.375 gram 1.5 g (4 x 0.375 gram) PO QAM #360 03/11/25 capsule,extended release 24 hr caps (Apriso) Allergies Allergy/AdvReac Type Severity Reaction Status Date / Time Seasonal Allergies Allergy Sneezing Verified 03/09/25 15:03 [facility] Past Medical History Medical History (Updated 03/10/25 @ 00:01 by [facility] Zoltan) Reactive hypoglycemia Hypoglycemia Constipation Post-surgical hypothyroidism Elevated liver enzymes Varicose veins of bilateral lower extremities with other complications Obstructive sleep apnea Rheumatoid arthritis Depression ADHD Hypothyroid Morbid obesity Surgical History History of colonoscopy H/O prior ablation treatment (~2017) History of vein stripping (~2017) Hx of thyroidectomy Family History Family History Father No problems noted. Mother No problems noted. Brother No problems noted. Brother No problems noted. Brother No problems noted. Other No family history of cancer Social History Social History Household Members: Family Household Members Other:: parents Housing: House Are you a primary managed care specialist to a significant other at home: No Do you presently have visiting nurse or other home services: No Alcohol intake: never Patient Tobacco Use Status: Never used Tobacco Advance Directives: No Advance Directives Information Provided: No Do you have a plan to hurt others: No Plan service: No Current occupational status: disabled Physical Exam ED Vital Signs: Vital Signs - 24 hr 03/09/25 15:00 Temperature 97.6 F Pulse Rate 98 Respiratory Rate 18 Blood Pressure 121/69 Pulse Oximetry 99 Oxygen Delivery Method Room Air BMI result Body Mass Index 40.0 Course Course Course Narrative: RME: 34-year-old female who stating feeling fatigued and not feeling well. Patient had labs drawn last month which showed she is anemic. Patient states also hair falling out history of hypothyroidism. Labs ordered. Vital signs stable. Physical exam benign Medications Administered Discontinued Medications Generic Name Dose Route Start Last Admin Trade Name Spencerq PRN Reason Stop Dose Admin Valacyclovir HCl 1,000 mg 03/09/25 18:18 03/09/25 18:49 Valacyclovir Hcl 1,000 Mg Tablet PO 03/09/25 18:19 1,000 mg ONCE ONE Administration Valacyclovir HCl 1,000 mg 03/09/25 20:07 03/09/25 20:18 Valacyclovir Hcl 1,000 Mg Tablet PO 03/09/25 20:08 1,000 mg ONCE ONE Administration Medical Decision Making Medical Decision Making MDM Narrative: 34-year-old female with a history of postsurgical hypothyroidism, depression, anemia, thrombocytopenia, constipation, morbid obesity, rheumatoid arthritis, ADHD who presents with a weakness of unclear duration. Patient states she is followed by Hematology, she states she had recent labs performed, and that she was concerned for her thyroid function and blood counts. Associated fatigue and generalized malaise. Patient states she has developed oral cold sores over the past day. Denies fever, active cough or cold symptoms. Problem: Hypothyroid, anemia, depression History: Per patient I have considered the following differential differential diagnoses: Acute hypothyroidism, anemia, viral syndrome, depression Plan: Screening labs were obtained from triage including her thyroid function. Her blood counts are appropriate, her thyroid function is normal. Given the presence of the cold sores, she is likely developing viral syndrome we will add on a viral panel, we will treat with valacyclovir. I have independently reviewed the following tests: Labs: No leukocytosis, not anemic, no electrolyte abnormality, TSH is appropriate, viral panel negative, not Lab Data 03/09/25 15:13 03/09/25 15:13 Labs: Lab Results 03/09/25 03/09/25 Range/Units 15:13 18:43 WBC 10.4 (4.8-10.8) X10*3/uL RBC 4.22 (4.20-5.50) X10*6/uL Hgb 10.3 L (12.0-16.0) g/dl Hct 33.1 L (37.0-47.0) % MCV 78.4 L (80.0-98.0) fL MCH 24.4 L (27.0-33.0) pg MCHC 31.1 (31.0-35.0) g/dl RDW 15.9 (11.0-16.0) % Plt Count 171 (160-400) X10*3/uL MPV 11.0 (9.4-12.3) fL Immature Gran % (Auto) 0.5 H (0.0-0.4) % Neut % (Auto) 72.5 (45-73) % Lymph % (Auto) 19.3 L (20-40) % Pratt % (Auto) 6.7 (2-11) % Eos % (Auto) 0.6 (0-4) % Baso % (Auto) 0.4 (0-2) % Lymph # (Auto) 2.0 (1.2-4.9) X10*3/uL Pratt # (Auto) 0.7 (0.1-1.2) X10*3/uL Eos # (Auto) 0.1 (0.0-0.4) X10*3/uL Baso # (Auto) 0.0 (0.0-0.2) X10*3/uL Abs Immat Gran (auto) 0.05 H (0.00-0.03) X10*3/uL Absolute Neuts (auto) 7.6 (2.0-8.3) x10*3/uL Absolute Nucleated RBC 0.000 (0.0-0.012) X10*3/uL Nucleated RBC % (auto) 0.0 (0.0-0.2) /100WBC Sodium 138 (135-145) mmol/L Potassium 3.5 (3.3-5.1) mmol/L Chloride 106 (96-108) mmol/L Carbon Dioxide 26 (22-29) mmol/L Anion Gap 10 L (12-20) BUN 13 (9-16) mg/dL Creatinine 0.77 (0.5-1.4) mg/dL Estim Creat Clear Calc 133.3 Estimated GFR > 60 Random Glucose 126 H (60-115) mg/dL Calcium 8.9 (8.4-10.2) mg/dL Magnesium 1.9 (1.6-2.6) mg/dL Total Bilirubin 0.5 (0.0-1.0) mg/dL AST 17 (5-31) U/L ALT 17 (0-31) U/L Alkaline Phosphatase 78 (39-117) U/L Total Creatine Kinase 49 (26-140) U/L Total Protein 7.6 (6.5-8.0) g/dL Albumin 4.3 (3.5-5.0) g/dL TSH 0.54 (0.32-4.0) uIU/mL Beta HCG, Quant < 2 mIU/mL Influenza Type A (PCR) NEGATIVE (Negative) Influenza Type B (PCR) NEGATIVE (Negative) RSV RNA Qual (PCR) NEGATIVE (Negative) SARS-CoV-2 RNA (RT-PCR) NEGATIVE (Negative) Discharge Plan Discharge Clinical Impression: Viral syndrome, Cold sore Patient Disposition: Home, Self-Care Instructions: Oral Herpes Infection (ED), Viral Syndrome (ED) Additional Instructions: All of your screening labs were normal, including your blood counts and your thyroid function. You likely are developing a virus, given the onset of the cold sores. Take the valacyclovir as directed. Follow up with your primary care provider as needed. To note, viral illnesses self-limiting. Prescriptions: New valacyclovir 1 gram tablet 2,000 mg PO ONCE Qty: 2 0RF No Action cholecalciferol (vitamin D3) 50 mcg (2,000 unit) capsule 50 mcg PO DAILY Qty: 30 5RF famotidine 20 mg tablet 20 mg PO BEDTIME Qty: 90 1RF esomeprazole magnesium 40 mg capsule,delayed release(DR/EC) 40 mg PO DAILY Qty: 90 1RF mesalamine [Apriso] 0.375 gram capsule,extended release 24hr 1.5 g PO QAM Qty: 360 3RF polyethylene glycol 3350 17 gram/dose powder 17 g PO DAILY Qty: 238 0RF Asmanex HFA 100 mcg/actuation HFA aerosol inhaler 1 puff INHALATION BID zinc acetate 50 mg (zinc) capsule 50 mg PO DAILY albuterol sulfate 90 mcg/actuation HFA aerosol inhaler 1 inh inhalation QID PRN (Reason: shortness of breath or wheezing) Qty: 6.7 0RF montelukast [Singulair] 10 mg tablet 10 mg PO BEDTIME azelastine 205.5 mcg (0.15 %) spray,non-aerosol 1 spray intranasal BID Rx Instructions: administer into each nostril ipratropium bromide 21 mcg (0.03 %) spray,non-aerosol 2 spray intranasal BID-TID Rx Instructions: administer into each nostril docusate sodium [Colace] 100 mg capsule 100 mg PO BID fluoxetine 40 mg capsule 80 mg PO DAILY diclofenac sodium-menthol 1.5-10 % combo pack 1 pkg topical DAILY fluticasone propionate [Flonase Allergy Relief] 50 mcg/actuation spray,suspension 2 spray intranasal DAILY Rx Instructions: administer into each nostril bupropion HCl [Wellbutrin SR] 100 mg tablet sustained-release 12 hr 100 mg PO BID ferrous sulfate 325 mg (65 mg iron) tablet 325 mg PO DAILY ascorbic acid (vitamin C) 250 mg tablet 250 mg PO DAILY diphenhydramine HCl [Benadryl] 25 mg capsule 25 mg PO BEDTIME PRN (Reason: Sleep) (DME) blood-glucose meter [FreeStyle Lite Meter] Kit See Rx Instructions .Route Rx Instructions: As directed (DME) FreeStyle Lite Strips Strip See Rx Instructions .Route Rx Instructions: As directed fluticasone propionate [Flovent HFA] 110 mcg/actuation HFA aerosol inhaler 1 puff inhalation BID dextrose 6 gram/15 mL gel 4 g PO Q15M Rx Instructions: until symptoms of low blood sugar are controlled Mirena 20 mcg/24 hours (8 yrs) 52 mg intrauterine device 1 device intrauterine ONCE Qty: 1 0RF Mirena 20 mcg/24 hours (8 yrs) 52 mg intrauterine device intrauterine Citrucel 500 mg tablet 500 mg PO DAILY Qty: 90 2RF risperidone 0.5 mg tablet 0.5 mg PO BEDTIME omeprazole 40 mg capsule,delayed release(DR/EC) 40 mg PO BID bisacodyl [Dulcolax (bisacodyl)] 5 mg tablet,delayed release (DR/EC) 10 mg PO BEDTIME Qty: 180 4RF Ozempic 1 mg/dose (4 mg/3 mL) pen injector 1 mg subcut QWEEK trazodone 50 mg tablet 50 mg PO BEDTIME (DME) Yushino Angi 2 Sensor Kit See Rx Instructions .ROUTE .MEDSUPPLY Qty: 1 Rx Instructions: As directed hydrocortisone [Anusol-HC] 2.5 % cream with perineal applicator 1 appl VA BID-QID PRN (Reason: Itching) Qty: 30 3RF levothyroxine [Tirosint] 200 mcg capsule 200 mcg PO DAILY Qty: 30 6RF levothyroxine [Tirosint] 50 mcg capsule 50 mcg PO DAILY Qty: 90 5RF Rx Instructions: Take with 200 mcg capsule daily for a total dose of 250 mcg daily Brand name only, no substitution allowed, JORGE A 0 Interventions: ED Discharge Assessment Last Done: 03/09/25 20:22 Discharge Date/Time: 03/09/25 20:22 Print Language: Luxembourgish
[2025-03-09 15:16] LABS: MANUAL DIFF FLAG NO
[2025-03-09 15:19] LABS: Hematocrit 33.1 % (37.0-47.0); Hemoglobin 10.3 g/dl (12.0-16.0); Imm Gran Abs Auto 0.05 X10*3/uL (0.00-0.03); Imm Gran Pct Auto 0.5 % (0.0-0.4); Lymphocytes Absolute Auto 2.0 X10*3/uL (1.2-4.9); Mean Corpuscular HGB Conc 31.1 g/dl (31.0-35.0); Mean Corpuscular Hemoglobin 24.4 pg (27.0-33.0); Mean Corpuscular Volume 78.4 fL (80.0-98.0); NRBC Abs Auto 0.000 X10*3/uL (0.0-0.012); NRBC Pct Auto 0.0 /100WBC (0.0-0.2); Platelet Count 171 X10*3/uL (160-400); Red Blood Count 4.22 X10*6/uL (4.20-5.50); White Blood Count 10.4 X10*3/uL (4.8-10.8)
[2025-03-09 15:41] LABS: Alanine Aminotransferase 17 U/L (0-31); Albumin Level 4.3 g/dL (3.5-5.0); Alkaline Phosphatase 78 U/L (39-117); Anion Gap 10 (12-20); Aspartate Amino Transferase 17 U/L (5-31); Blood Urea Nitrogen 13 mg/dL (9-16); Calcium 8.9 mg/dL (8.4-10.2); Carbon Dioxide 26 mmol/L (22-29); Chloride 106 mmol/L (96-108); Creatinine Clr Calc Pharmacy 133.3; Estimated Glomerular Filt Rate > 60; Magnesium 1.9 mg/dL (1.6-2.6); Potassium 3.5 mmol/L (3.3-5.1); Sodium 138 mmol/L (135-145); Total Protein 7.6 g/dL (6.5-8.0)
--- OUTSIDE RECORDS SUMMARY | 2025-03-09 16:48 | XMS_ITS | Encounter Summary ---
Author Organization [employer] Address [address] [facility] [address] [place] [address] Care Team Providers Care Agriculture Instructor Name Role Phone Bernadine Ramos Primary Care Provider [phone] Encounter Details Date Type Department Care Team (Late st Contact Info) Description 03/09/2025 Orders Only GENERIC EXTERNAL DATA DEPARTMENT Provider, [...] Care Team (Late st Contact Info) Description 05/27/2025 2:30 PM EDT Office Visit [facility] MEDIC[facility] [address] [place], [place] [phone] Bernadine Ramos ANP [address] [place], [place] [phone] documented as of this encounter Procedures Procedure Name Priority Date/Time Associated Diagnosis Comments TSH W/REFLEX TO FT4 Routine 03/09/2025 3 :13 PM EDT CBC WITH AUTO DIFFERENTIAL Routine 03/09/2025 3:13 PM EDT HCG, TOTAL, QN Routine 03/09/2025 3:13 PM EDT MAGNESIUM Routine 03/09/2025 3:13 PM EDT CREATINE KINASE, TOTAL Routine 3:13 PM EDT COMPREHENSIVE METABOLIC PANEL Routine 03/09/2025 3:13 PM EDT documented in this encounter Results * hCG, Total, Quantitative (03/09/2025 3:13 PM EDT) HCG Quantitative <2 mIU/mL [facility] Comment:Weeks post LMP Appro ximate hCG(Last Menstrual Period) Range (mIU/ml)3 - 4 weeks 9 - 1304 - 5 weeks 75 - 2,6005 - 6 weeks 850 - 20,8006 - 7 weeks 4000 - 100,2007 - 12 weeks 11,500 - 289,21261 - 16 weeks 18,300 - 137,87976 - 29 weeks (2nd trimester) 1,400 - 53,37323 - 41 weeks (3rd trimester) 940 - 60,000The Bryan B- hCG assay is used for the early detection ofpregnancy; it cannot be used to diagnose any conditionunrelated to . If a B-hCG level is not supportedby the clinical evidence, results should be confirmed by analternative method (qualitative urine hCG, for example). 03/09/2025 3:13 PM EDT 03/09/2025 3:16 PM EDT Generic External Data Provider LAB BLOOD ORDERAB LES Final Result Performing Organization Address [facility] Co de Phone Number [facility] [address] [place] [phone] * TSH with Reflex to Free T4 (03/09/2025 3:13 PM EDT) TSH reflex Free T4 0.54 0.32 - 4.0 uIU/mL [facility] 03/09/2025 3:13 PM EDT 03/09/2025 3:16 PM EDT Generic External Data Provider LAB BLOOD ORDERAB LES Final Result Performing Organization Address [facility]/ZIP Co de Phone Number [facility] [address] [place] [phone] * Creatine Kinase, Total (03/09/2025 3:13 PM EDT) Creatine Kinase Total 49 26 - 140 U/L [facility] 03/09/2025 3:13 PM EDT 03/09/2025 3:16 PM EDT Generic External Data Provider LAB BLOOD ORDERAB LES Final Result Performing Organization Address City/[facility]/ZIP Co de Phone Number [facility] [address] [place] [phone] * Magnesium (03/09/2025 3:13 PM EDT) Magnesium 1.9 1.6 - 2.6 mg/dL [facility] 03/09/2025 3:13 PM EDT 03/09/2025 3:16 PM EDT Generic External Data Provider LAB BLOOD ORDERAB LES Final Result Performing Organization Address [facility] Co de Phone Number [facility] [address] [place] [phone] * (ABNORMAL) Comprehensive Metabolic Panel (03/09/2025 3:13 PM EDT) Pathologist [facility] Sodium 138 135 - 145 mmol/L [facility] Potassium 3.5 3.3 - 5.1 mmol/L [facility] Chloride 106 96 - 108 mmol/L [facility] Carbon Dioxide 26 22 - 29 mmol/L [facility] Anion Gap 10(L) 12 - 20 [facility] Urea Nitrogen (BUN) 13 9 - 16 mg/dL [facility] Creatinine, Serum 0.77 0.5 - 1.4 mg/dL [facility] Creatinine Clr Calc Pharmacy 133.3 [facility] Comment:Provided height and weight: 167.64 cm,112.3 kg.eGFR (calculated from the MDRD study equation) and eCrCl(calculated from the Cockcroft-Gault equation) are based ondifferent parameters and may not yield comparable results.If eCrCl result is absurd, please check patient'sheight/weight. Estimated Glomerular Filt Rate >60 [facility] Comment:Chronic Kidney Disea se: Estimated GFR < 60 mL/min/1.70w8Hkgcxi Kidney Disease: Estimated GFR < 15 mL/min/1.73m2 Glucose 126(H) 60 - 115 mg/dL [facility] Calcium 8.9 8.4 - 10.2 mg/dL [facility] Bilirubin, Total 0.5 0.0 - 1.0 mg/dL [facility] Aspartate Amino Transferase 17 5 - 31 U/L [facility] Alanine Aminotransferase 17 0 - 31 U/L [facility] Total Protein 7.6 6.5 - 8.0 g/dL [facility] Albumin Level 4.3 3.5 - 5.0 g/dL [facility] Alkaline Phosphatase 78 39 - 117 U/L [facility] 03/09/2025 3:13 PM EDT 03/09/2025 3:16 PM EDT us Generic External Data Provider LAB BLOOD ORDERAB LES Final Result [facility] [address] [place] [phone] * (ABNORMAL) CBC auto differential (03/09/2025 3:13 PM EDT) White Blood Count 10.4 4.8 - 10.8 X10*3/uL [facility] Red Blood Count 4.22 4.20 - 5.50 X10*6/uL [facility] Hemoglobin 10.3(L) 12.0 - 16.0 g/dl [facility] Hematocrit 33.1(L) 37.0 - 47.0 % [facility] Mean Corpuscular Volume 78.4(L) 80.0 - 98.0 fL [facility] Mean Corpuscular Hemoglobin 24.4(L) 27.0 - 33.0 pg [facility] Mean Corpuscular HGB Conc 31.1 31.0 - 35.0 g/dl [facility] Red Cell Distribution Width 15.9 11.0 - 16.0 % [facility] Platelet Count 171 160 - 400 X10*3/uL [facility] Mean Platelet Volume 11.0 9.4 - 12.3 fL [facility] Neutrophils Percent Auto 72.5 45 - 73 % [facility] Imm Gran Pct Auto 0.5(H) 0.0 - 0.4 % [facility] Lymphocytes Percent Auto 19.3(L) 20 - 40 % [facility] Monocytes Percent Auto 6.7 2 - 11 % [facility] Eosinophils Percent Auto 0.6 0 - 4 % [facility] Basophils Percent Auto 0.4 0 - 2 % [facility] NRBC Pct Auto 0.0 0.0 - 0.2 /100WBC [facility] Neutrophils Absolute Auto 7.6 2.0 - 8.3 x10*3/uL [facility] Imm Gran Abs Auto 0.05(H) 0.00 - 0.03 X10*3/uL [facility] Lymphocytes Absolute Auto 2.0 1.2 - 4.9 X10*3/uL [facility] Monocytes Absolute Auto 0.7 0.1 - 1.2 X10*3/uL [facility] Eosinophils Absolute Auto 0.1 0.0 - 0.4 X10*3/uL [facility] Basophils Absolute Auto 0.0 0.0 - 0.2 X10*3/uL [facility] NRBC Abs Auto 0.000 0.0 - 0.012 X10*3/uL [facility] 03/09/2025 3:13 PM EDT 03/09/2025 3:16 PM EDT us Generic External Data Provider LAB BLOOD ORDERAB LES Final Result [facility] [address] [place] [phone] documented in this encounter Visit Diagnoses Not on filedocumented in this encounter Additional Health Concerns Assessment Noted Time PHQ-9 Depression Total Score: 8 06/23/20 24 10:48 AM EDT documented as of this encounter Care Teams Agriculture Instructor Relationship Specialty Start Date End Date Bernadine Ramos ANP [address] [place] [phone] PCP - General Family Medicine 02/16/20 [facility] 07/11/15 documented as of this encounter
--- OUTSIDE RECORDS SUMMARY | 2025-03-09 16:48 | XMS_ITS | Clinical Summary ---
Author Organization [address] [facility] Address [address] [place] [address] Phone Care Team Providers Care Dock Loader Name Role Phone RichardBernadine Irina KING Primary Care Provider [phone] Allergies No known active allergies Medications ascorbic acid (VITAMIN C) 250 mg tablet TAKE 1 TABLET BY MOUTH EVERY DAY WITH IRON TABLET Active Laxative, bisacodyl, 5 mg EC tablet Take 2 tablets (10 mg total) by mouth. at bedtime 5 Active buPROPion SR (WELLBUTRIN SR) 100 mg 12 hr tablet Take 1 tablet (100 mg total) by mouth 2 (two) times a day. Active esomeprazole (NexIUM) [address] capsule take 1 capsule (40 mg) orally daily 5 Active famotidine (PEPCID) 20 mg tablet Take 1 tablet (20 mg total) by mouth. at bedtime. 5 Active ferrous sulfate 325 mg (65 mg elemental iron) tablet TAKE 1 TABLET BY MOUTH EVERY DAY WITH VITAMIN C. DO NOT TAKE WITH DAIRY PRODUCTS OR THYROID MEDICINE Active FLUoxetine (PROzac) 40 mg capsule Take 2 capsules (80 mg total) by mouth 1 (one) time each day. Active FreeStyle Angi 2 Sensor kit 1 kit by Other route every 14 (fourteen) days. 5 Active fluticasone propionate (FLONASE) 50 mcg/actuation nasal spray TAKE 1-2 SPRAYS EACH NOSTRIL 1-2 TIMES DAILY NEEDED FOR ALLERGIES Active levothyroxine (SYNTHROID, LEVOTHROID) 200 mcg tablet TAKE 1 TABLET BY MOUTH DAILY. TAKE WITH 50 MCG TABLET DAILY FOR A TOTAL 250 MCG DAILY Active levothyroxine (SYNTHROID, LEVOTHROID) 50 mcg tablet TAKE 1 TABLET BY MOUTH DAILY. TAKE WITH 200 MCG CAPSULE DAILY FOR A TOTAL 250 MCG DAILY Active Apriso 0.375 gram 24 hr capsule Take 4 capsules (1.5 g total) by mouth 1 (one) time each day in the morning. 5 Active montelukast (SINGULAIR) 10 mg tablet Take 1 tablet (10 mg total) by mouth 1 (one) time each day in the evening. Active omeprazole (PriLOSEC) [address] capsule Take 1 capsule (40 mg total) by mouth 2 (two) times a day before meals. 3 Active risperiDONE (RisperDAL) 0.5 mg tablet Take 1 tablet (0.5 mg total) by mouth at bedtime. 5 Active semaglutide (OZEMPIC) 2 mg/dose (8 mg/3 mL) injection pen Inject 2 mg under the skin. 5 Active Senna Laxative 8.6 mg tablet TAKE 2 TABLETS BY MOUTH AT BEDTIME FOR FOR CONSTIPATION Active traZODone (DESYREL) 50 mg tablet Take 1 tablet (50 mg total) by mouth at bedtime. Active Encounters Date Type Department Care Team Description 01/11/2025 1:45 PM EDT Consult Orthopedic Surgery - [address] [address] Ismael Paige, DPTl Diabetic mononeuropathy simplex (CMS/HCC V24, CMS/HCC V28) (Primary Dx); Type 2 diabetes mellitus with hypoglycemia without coma (CMS/HCC V24, CMS/HCC V28); Corns and callosities; Metatarsalgia of both feet; Pes cavus from Last 3 Months Social History Tobacco Use Types Packs/Day Years Used Date Smoking Tobacco: Never Assessed Comments Unknown Sex and Gender Information Value Date Recorded Sex Assigned at Not on file Legal Sex Female 3:17 PM EST Gender Identity Not on file Sexual Orientation Not on file Last Filed Vital Signs Vital Sign Reading Time Taken Comments Blood Pressure - - Pulse - - Temperature - - Respiratory Rate - - Oxygen Saturation - - Inhaled Oxygen Concentration - - Weight 116 kg (256 lb) 01/11/2025 2:23 PM EDT Height 162.6 cm (5' 4 ) 01/11/2025 2:23 PM EDT Body Mass Index 43.94 01/11/2025 2:23 PM EDT Plan of Treatment Upcoming Encounters Date Type Department Care Team (Late st Contact Info) Description 03/16/2025 1:30 PM EDT Office Visit Orthopedic Surgery - [place] [address] [phone] Ismael Paige, DPM [address] [address] Health Maintenance Due Date Last Done Comments Diabetes: Annual GFR (Glomerular Filtration Rate) 1992 Diabetes: Annual Foot Exam 2002 Diabetes: Annual Retina Eye Exam 2002 Hepatitis A Vaccines (2 of 2 - 2-dose series) 08/31/2011 03/01/2011 Cervical Cancer Screening: Pap Smear 2013 COVID-19 Vaccine ( season) 2024 Diabetes: Annual Urine Albumin-Creatinine Ratio (uACR) 11/24/2024 HIV Screening 11/24/2024 Hepatitis C Screening 11/24/2024 Social Influencers of Health Screening 11/24/2024 Influenza Vaccine (#1) 2025 , 05/18/2022, 06/12/2018, Additional history exists Diabetes: Blood Sugar Control Test (HGBA1C) 05/06/2025 11/03/2024 Depression Screening 06/23/2025 06/23/2024 Cholesterol Screening (Lipid Panel) 11/11/2029 11/11/2024 DTaP,Tdap,and Td Vaccines (9 - Td or Tdap) 02/27/2031 02/27/2021, 02/20/2010, 08/16/2004, Additional history exists Hepatitis B Vaccines Completed 05/18/1993, 02/13/1993, 1992 HIB Vaccines Completed 10/24/1993, 05/03, 02/13/1993, Additional history exists IPV Vaccines Completed 10/08/1996, 04/02, 02/13/1993, Additional history exists MMR Vaccines Completed 10/08/1996, 10/24/1993 Meningococcal ACWY Vaccine Aged Out 09/17/2006 N o longer eligible based on patient's age to complete this topic HPV Vaccines Completed 05/18/2008, 12/31, 11/12/2007 Pneumococcal Vaccine: Pediatrics (0 to 5 Years) and At-Risk Patients (6 to 49 Years) Completed 10/02/2023 Meningococcal B Vaccine Aged Out No l onger eligible based on patient's age to complete this topic RSV Immunization Patients Under 20 months Aged Out No longer eligible based on patient's age to complete this topic Varicella Vaccines Aged Out No longer eligible based on patient's age to complete this topic Insurance MEDICAID - [place] Care Teams Dock Loader Relationship Specialty Start Date End Date Bernadine Ramos NP [address] [place] [address] [place] [phone] PCP - General 10/02/23
--- OUTSIDE RECORDS SUMMARY | 2025-03-09 16:48 | XMS_ITS | Encounter Summary ---
Author Organization [facility] Address [address] [place] [address] Phone Care Team Providers Care Sanitation Superintendent Name Role Phone Austyn Lane MD Primary Care Provider [phone] Encounter Details Date Type Department Care Team (Late st Contact Info) Description 12/01/2012 Documentation [facility] Family Medicine [address] [place] [address] Family Medicine, Physician [address] [place], [place] [phone] Social History Tobacco Use Types Packs/Day Years [...] on filedocumented in this encounter Care Teams Sanitation Superintendent Relationship Specialty Start Date End Date Austyn Lane MD [address] [place] [address] T[place] [address] PCP - General 04/12/17 11/14/22 documented as of this encounter
[2025-03-09 19:31] LABS: Resp Syncy Virus RNA Qual PCR NEGATIVE (Negative); SARS COV2 PCR INHOUSE NEGATIVE (Negative)
[2025-03-09 20:19] VITALS: BP 117/58; PULSE 86; RESP 20; TEMP 37.1; O2SAT 100
[2025-03-09 20:22] VITALS: BP 117/58; PULSE 86; RESP 20; TEMP 37.1; O2SAT 100
== END 2025-03-09 20:22 | disposition home or self-care (01) ==
PROVIDERS: Physician Assistant; Physician Assistant Medical; Emergency Provider Emergency Medicine; PCP Nurse Practitioner Primary Care
DX: B34.9 Viral infection, unspecified (principal); B00.1 Herpesviral vesicular dermatitis; Z03.818 Encounter for observation for suspected exposure to other biological agents ruled out
CPT/HCPCS: 36415; 80053; 82550; 83735; 84443; 84702; 85025; 87637; 99283

== ENCOUNTER 2025-04-01 13:00 | Outpatient (REF) | payer MEDICAID, SELFPAY | END 2025-04-01 13:01 | disposition home or self-care (01) | LOC: HO.LNP 13:00 | PROVIDERS: PCP Nurse Practitioner Primary Care; Visit Provider Obstetrics & Gynecology | DX: N93.9 Abnormal uterine and vaginal bleeding, unspecified (principal); Z32.02 Encounter for pregnancy test, result negative | CPT/HCPCS: 81025; 99212 ==

== ENCOUNTER 2025-04-01 13:00 | Outpatient (AMB) | payer MEDICAID, SELFPAY ==
--- NOTE | 2025-04-01 13:01 | A.OFFVIS_ITS ---
Vital Signs 04/01/25 13:06 Height 5 ft 6 in Weight 250 lb BMI 40.3 BP 110/80 Intake Visit Reasons: irregular periods Intake Note: c/o of heavy bleeding with IUD Welder Repair Required: No Information Interpreted: non-clinical & clinical Brine Tank Separator Operator: Brine Tank Separator Operator Present (Jacqueline LAMAS) Accompanied by: Self / Same As Patient Allergies Seasonal Allergies Allergy (Verified 04/01/25 13:08) Sneezing Is last menstrual period known: Yes HPI Comments Details: Presenting complaining of irregular menstrual cycles as serial passage of blood clots and pelvic cramping. The patient is on Mirena IUD Last co testing in 02/20 was negative [facility] Medical History Reactive hypoglycemia Hypoglycemia Constipation Post-surgical hypothyroidism Elevated liver enzymes Varicose veins of bilateral lower extremities with other complications Obstructive sleep apnea Rheumatoid arthritis Depression ADHD Hypothyroid Morbid obesity Surgical History History of colonoscopy H/O prior ablation treatment (~2017) History of vein stripping (~2017) Hx of thyroidectomy Family History Father No problems noted. Mother No problems noted. Brother No problems noted. Brother No problems noted. Brother No problems noted. Other No family history of cancer Social History Household Members: Family Household Members Other:: parents Housing: House Are you a primary healthcare project manager to a significant other at home: No Do you presently have visiting nurse or other home services: No Alcohol intake: never Patient Tobacco Use Status: Never used Tobacco service: No Current occupational status: disabled Female Reproductive History Menstrual Age of Menarche: 13 control method: progestin IUCD Total pregnancies: 0 Review of Systems Const All systems reviewed & are unremarkable except as noted in HPI and below Physical Exam Vital Signs: Last Vital Signs BP 110/80 04/01/25 13:06 BMI result Body Mass Index 40.3 General: Yes no CVA tenderness External Female Exam: normal external appearance and normal appearance of the urethra Speculum Exam - Vagina: normal appearance of the vagina, normal palpation, no lesions and no masses Speculum Exam - Cervix: normal appearance of the cervix, normal palpation, no lesions, no masses, nontender and Other cervical findings present (IUD string is seen in place) Bimanual exam- vagina & uterus: normal bimanual exam, normal palpation, uterine size normal, normal palpation, uterine shape normal, No Cervical tenderness present and non-tender Bimanual Exam- Adnexa, other: normal adnexae Back/Spine/Pelvis Back: no CVA tenderness Results AMB Test Urine AMB Test Urine Negative Last Edit by Jacqueline Flores CMA on 13:14 Results Reviewed Results Reviewed: Laboratory Last Values Tst Clinic Negative 04/01/25 13:14 Assessment & Plan Assessment & Plan (1) Abnormal uterine bleeding (AUB): Comment: On Mirena IUD Code(s): N93.9 - Abnormal uterine and vaginal bleeding, unspecified Category: Medical Plan: GC and chlamydia taken CBC, TSH, HCG, and pelvic ultrasound ordered. Discussed with the patient the different causes of abnormal bleeding including thyroid disorders, uterine and ovarian pathology, endometrial hyperplasia, carcinoma and other potential causes. Discussed with the patient the work up including CBC (to r/o anemia), TSH, pelvic Ultrasound, endometrial biopsy to r/o endometrial pathology. All questions answered and the patient verbalized understanding. Instructed the patient to schedule an appointment for an endometrial biopsy in 2 weeks. Orders: Orders TSH reflex Free T4 Today N93.9 - Abnormal uterine and vaginal bleeding, unspecified HCG Quantitative Today N93.9 - Abnormal uterine and vaginal bleeding, unspecified AMB HCG Urine Test Today Z32.02 - Encounter for test, result negative Complete Blood Count no Diff Today N93.9 - Abnormal uterine and vaginal bleeding, unspecified US pelvic and transvaginal Today N93.9 - Abnormal uterine and vaginal bleeding, unspecified Coding Level of Care Code Est Pt Level 3 (47528) Diagnoses Abnormal uterine bleeding (AUB) N93.9
[2025-04-01 13:06] VITALS: BP 110/80; BMI 40.3
--- OUTSIDE RECORDS SUMMARY | 2025-04-01 13:10 | XMS_ITS | Clinical Summary ---
Author Organization 175 [facility] Address [address] [place] [address] Phone Care Team Providers Care Textile Machine Maintenance Mechanic Name Role Phone RichardBernadine Irina KING Primary Care Provider [phone] Allergies No known active allergies Medications ascorbic [...] 1:45 PM EDT Consult Orthopedic Surgery - [address] [address] Ismael Paige, DPTl Diabetic mononeuropathy [...] 01/11/2025 2:23 PM EDT Plan of Treatment Health Maintenance Due Date Last Done Comments Diabetes: Annual GFR (Glomerular Filtration Rate) 1992 Diabetes: Annual Foot Exam 2002 Diabetes: Annual Retina Eye Exam 2002 Hepatitis A Vaccines (2 of 2 - 2-dose series) 08/31/2011 03/01/2011 Cervical Cancer Screening: Pap Smear 2013 COVID-19 Vaccine ( season) 2024 Depression Screening 09/02/2024 Diabetes: Annual Urine Albumin-Creatinine Ratio (uACR) 11/24/2024 HIV Screening 11/24/2024 Hepatitis C Screening 11/24/2024 Social Influencers of Health Screening 11/24/2024 Influenza Vaccine (#1) 2025 , 05/18/2022, 06/12/2018, Additional history exists Diabetes: Blood Sugar Control Test (HGBA1C) 05/06/2025 11/03/2024 Cholesterol Screening (Lipid Panel) 11/11/2029 11/11/2024 DTaP,Tdap,and [...] topic Insurance MEDICAID - [place] Care Teams Textile Machine Maintenance Mechanic Relationship Specialty Start Date End Date Bernadine Ramos NP [address] [address] [place] [address] PCP - General 10/02/23
--- OUTSIDE RECORDS SUMMARY | 2025-04-01 13:10 | XMS_ITS | Encounter Summary ---
Author Organization [employer] Address [address] [place] [address] [address] [place] [address] Care Team Providers Care Vat House Supervisor Name Role Phone Bernadine Ramos Primary Care Provider [phone] Reason for Visit * Reason Onset Date Comments FYI 03/22/2023 Encounter Details Date Type Department Care Team ([facility] st Contact Info) Description 03/22/2023 Telephone [facility] [address] [place] [address] Bernadine Ramos ANP [address] [place] [address] FYI Social History Tobacco Use Types Packs/Day [...] - 03/22/2023 2:39 PM EDT Tc from [place] with [facility] stating will be renewing pt care of plan on March 27 will be seeing pt 5 x a week for medication. documented in this encounter Plan of Treatment Upcoming Encounters Date Type Department Care Team (Late st Contact Info) Description 05/27/2025 2:30 PM EDT Office Visit [facility] [address] [place] [address] Bernadine Ramos ANP [address] [place] [address] documented as of this encounter Visit Diagnoses Not on filedocumented in this encounter Additional Health Concerns Assessment Noted Time PHQ-9 Depression Total Score: 0 03/19/20 23 2:00 PM EDT documented as of this encounter Care Teams Vat House Supervisor Relationship Specialty Start Date End Date Bernadine Ramos ANP [address] [place] [address] PCP - General Family Medicine 02/16/20 [facility] 07/11/15 documented as of this encounter
--- OUTSIDE RECORDS SUMMARY | 2025-04-01 13:10 | XMS_ITS | Encounter Summary ---
Author Organization [facility] Address [address] [place] [address] Phone Care Team Providers Care Rheologist Name Role Phone Austyn Lane MD Primary Care Provider [phone] Encounter Details Date Type Department Care Team (Late st Contact Info) Description 12/01/2012 Documentation [facility] Family Medicine [address] [place] [address] Family Medicine, Physician [address] [place], [place] [phone] Social History Tobacco Use Types Packs/Day Years [...] on filedocumented in this encounter Care Teams Rheologist Relationship Specialty Start Date End Date Austyn Lane MD [address] [place] [address] [place] [address] PCP - General 04/12/17 11/14/22 documented as of this encounter
== END 2025-04-01 13:35 | disposition home or self-care (01) ==
LOC: HO.HWS 13:01
PROVIDERS: PCP Nurse Practitioner Primary Care; Visit Provider Obstetrics & Gynecology
DX: N93.9 Abnormal uterine and vaginal bleeding, unspecified (principal); Z32.02 Encounter for pregnancy test, result negative
CPT/HCPCS: 99213

== ENCOUNTER 2025-04-01 13:39 | Outpatient (REF) | payer MEDICAID, SELFPAY ==
[2025-04-01 14:22] LABS: Hematocrit 33.2 % (37.0-47.0); Hemoglobin 9.9 g/dl (12.0-16.0); Mean Corpuscular HGB Conc 29.8 g/dl (31.0-35.0); Mean Corpuscular Hemoglobin 23.2 pg (27.0-33.0); Mean Corpuscular Volume 77.9 fL (80.0-98.0); NRBC Abs Auto 0.000 X10*3/uL (0.0-0.012); NRBC Pct Auto 0.0 /100WBC (0.0-0.2); Platelet Count 194 X10*3/uL (160-400); Red Blood Count 4.26 X10*6/uL (4.20-5.50); White Blood Count 11.4 X10*3/uL (4.8-10.8)
[2025-04-01 15:00] LABS: Free T4 (Free Thyroxine) 0.55 ng/dL (0.71-1.85); Thyroid Stimulating Hormone 52.81 uIU/mL (0.32-4.0)
[2025-04-01 17:06] LABS: CT PCR NOT DETECTED (Not Detect.); NG PCR NOT DETECTED (Not Detect.)
== END 2025-04-01 13:40 | disposition home or self-care (01) ==
LOC: HO.LAB 13:39
PROVIDERS: Absent Provider Obstetrics & Gynecology; PCP Nurse Practitioner Primary Care; Visit Provider Student in an Organized Health Care Education/Training Program
DX: R94.6 Abnormal results of thyroid function studies (principal); N93.9 Abnormal uterine and vaginal bleeding, unspecified; E03.9 Hypothyroidism, unspecified; Z32.02 Encounter for pregnancy test, result negative
CPT/HCPCS: 36415; 84439; 84443; 84702; 85027; 87491; 87591

== ENCOUNTER 2025-04-14 08:38 | Outpatient (AMB) | payer MEDICAID, SELFPAY ==
--- NOTE | 2025-04-14 08:42 | MHC.OFFVIS ---
Vital Signs 04/14/25 08:49 Height 5 ft 6 in Weight 255 lb BMI 41.2 BP 126/68 Blood Pressure Location Rt brachial Position Sitting Pulse 88 Pulse Source Pulse Oximeter Pulse Oximetry (%) 100 Oxygen Delivery Method Room Air Intake Visit Reasons: 4m gerd Intake Note: ESTABLISHED PATIENT for GERD mgmt CC: C.O. generalized abd pain, diarrhea, abnormal stool appearance. Pt denies any evidence of bleeding. Pt also reports having concern pertaining to iron absorption per Dr. Monroe's office. Cone Classifier Tender Required: No Accompanied by: Self / Same As Patient Allergies Seasonal Allergies Allergy (Verified 04/01/25 13:08) Sneezing Medication List - Last Reconciled 04/14/25 by Candida Urban, [employer]AF[employer]Y [employer] PROTECTION- albuterol sulfate 90 mcg/actuation 1 inh inhalation QID PRN azelastine 1 spray intranasal BID bisacodyl (Dulcolax (bisacodyl)) 10 mg (2 x 5 mg) PO BEDTIME blood sugar diagnostic (FreeStyle Lite Strips) As directed blood-glucose meter (FreeStyle Lite Meter kit) As directed bupropion HCl SR (Wellbutrin SR) 100 mg PO BID cholecalciferol (vitamin D3) 50 mcg PO DAILY cyanocobalamin (vitamin B-12) (Vitamin B-12) 1,000 mcg PO DAILY esomeprazole magnesium 40 mg PO DAILY famotidine 20 mg PO BEDTIME ferrous sulfate 325 mg PO DAILY flash glucose sensor (FreeStyle Angi 2 Sensor kit) As directed fluoxetine 80 mg PO DAILY fluticasone propionate 50 mcg/actuation (Flonase Allergy Relief) 2 sprays intranasal DAILY fluticasone propionate 110 mcg/actuation (Flovent HFA) 1 puff inhalation BID folic acid 1 mg PO DAILY hydrocortisone 2.5% (Anusol-HC) 1 appl [place] BID-QID PRN levonorgestrel (Mirena) 20 mcg intrauterine DAILY levothyroxine (Tirosint) 50 mcg PO DAILY mesalamine ER (Apriso) 1.5 grams (4 x 0.375 gram) PO QAM methylcellulose (laxative) (Citrucel) 500 mg PO DAILY mometasone 100 mcg/actuation (Asmanex HFA) 1 puff inhalation BID montelukast (Singulair) 10 mg PO BEDTIME risperidone 2 mg PO BEDTIME semaglutide (Ozempic) 2 mg subcut QWEEK Tirosint (levothyroxine) 200 mcg PO DAILY NS trazodone 50 mg PO BEDTIME zinc acetate 50 mg PO DAILY HPI HPI 4m gerd: Details: LAST VISIT Constipation Transaminitis GERD (gastroesophageal reflux disease) Postprandial epigastric pain Postprandial abdominal bloating Rectal bleed Status post colonoscopy Plan Increase fluid intake and activity to promote better bowel motility. Stop senna and start Dulcolax. Continue mesalamine for few months until next appointment. Patient will continue taking Nexium and famotidine. Avoid dietary triggers and late night snacking. Staying upright for minimum 3 hours after meals discussed with patient. Patient will follow-up in 3 months, sooner on as needed basis. She is agreeable to this plan and verbalizes understanding of instructions. She was given the opportunity to ask questions and all questions answered. ? Thank you for allowing me to participate in her care New bisacodyl (Dulcolax (bisacodyl)) 10 mg (2 x 5 mg) PO BEDTIME 180 tabs 4RF Discontinued sennosides Discontinued Reason: Doctor's Order 17.2 mg (2 x 8.6 mg) PO BEDTIME 180 tabs 0RF for constipation K59.00 TODAY'S VISIT Patient is here today for follow-up. Patient reports that she is feeling better since last time she was seen in the office. Mesalamine patient is able to tolerate well. She continues to have trouble moving her bowels. Patient states that she takes Dulcolax, however she still is having trouble emptying her bowels. Patient does admit to have occasional postprandial diarrhea. Denies any melena, hematochezia, unintentional weight loss or ribbon like stools. Patient will be due to go for repeat colonoscopy in October of next year. Patient denies any nausea or vomiting. Patient started iron infusions. [facility] Medical History Reactive hypoglycemia Hypoglycemia Constipation Post-surgical hypothyroidism Elevated liver enzymes Varicose veins of bilateral lower extremities with other complications Obstructive sleep apnea Rheumatoid arthritis Depression ADHD Hypothyroid Morbid obesity Surgical History History of colonoscopy H/O prior ablation treatment (~2018) History of vein stripping (~2018) Hx of thyroidectomy Family History Father No problems noted. Mother No problems noted. Brother No problems noted. Brother No problems noted. Brother No problems noted. Other No family history of cancer Social History Household Members: Family Household Members Other:: parents Housing: House Are you a primary pet care attendant to a significant other at home: No Do you presently have visiting nurse or other home services: No Alcohol intake: never Patient Tobacco Use Status: Never used Tobacco service: No Current occupational status: disabled Female Reproductive History Menstrual Age of Menarche: 13 Review of Systems Const Denies weight gain and Denies weight loss ENT Reports no additional complaints, Denies dysphagia and Denies odynophagia Card Reports no additional complaints Resp Reports no additional complaints GI Reports abdominal pain (Epigastric), Denies belching, Denies melena, Reports bloating, Denies change in bowel habits, Reports constipation, Denies dysphagia, Denies excessive flatus, Denies dyspepsia, Reports heartburn, Denies diarrhea, Reports loose stools, Denies nausea, Denies odynophagia and Denies vomiting Reports no additional complaints Musc Reports no additional complaints Neuro Reports no additional complaints Psych Reports no additional complaints Endo Reports no additional complaints Physical Exam Vital Signs: Last Vital Signs Pulse 88 04/14/25 08:49 BP 126/68 04/14/25 08:49 Pulse Ox 100 04/14/25 08:49 Oxygen Delivery Method Room Air 04/14/25 08:49 BMI result Body Mass Index 41.2 Const General: healthy appearing and no acute distress Nutritional Appearance: obese Orientation/consciousness: patient oriented x3 Resp Effort & Inspection: normal respiratory effort, able to speak in complete sentences, no tracheal deviation and symmetric chest movement Auscultation: clear to auscultation bilaterally Cardio Rate: regular rate GI Inspection: Yes normal to inspection, No distended and Yes obesity Palpation (GI): Soft to palpation, not firm, nontender and No hepatosplenomegaly present Auscultation: normal bowel sounds General: Yes no CVA tenderness Back/Spine/Pelvis Back: no CVA tenderness Skin General skin exam: elasticity normal, turgor normal and dry skin Neuro General: patient oriented x3 Psych Appearance: grossly normal Mental Status: mental status grossly normal Assessment & Plan Assessment & Plan (1) Constipation: Code(s): K59.00 - Constipation, unspecified Category: Medical Qualifiers: Constipation type: chronic idiopathic constipation Qualified Code(s): K59.04 - Chronic idiopathic constipation (2) Postprandial abdominal bloating: Code(s): R14.0 - Abdominal distension (gaseous) (3) Postprandial epigastric pain: Code(s): R10.13 - Epigastric pain (4) Gastroesophageal reflux disease: Code(s): K21.9 - Gastro-esophageal reflux disease without esophagitis Qualifiers: Esophagitis presence: esophagitis presence not specified Qualified Code(s): K21.9 - Gastro-esophageal reflux disease without esophagitis (5) Elevated transaminase measurement: Code(s): R74.01 - Elevation of levels of liver transaminase levels Plan Patient is doing well on mesalamine, denies having any symptoms. Will keep her on it for few more months. Patient will start taking Linzess daily. Increase fluid intake and activity to promote better bowel motility. Patient will continue taking Nexium in the morning and famotidine at bedtime. Avoid dietary triggers and late night snacking. Staying upright for minimum 3 hours after meals discussed with patient. Will recheck vitamin D, B12 and folate. Patient will follow-up in the office in 2 months, sooner on as needed basis. She is agreeable to this plan and verbalizes understanding of instructions. She was given the opportunity to ask questions and all questions answered. Thank you for allowing me to participate in her care Orders: Orders Vitamin D 25-OH (D2 and D3) Today E55.9 - Vitamin D deficiency, unspecified Vitamin B12 and Folate Today R19.7 - Diarrhea, unspecified Medications: New linaclotide (Linzess) 145 mcg PO DAILY 30 caps 2RF Coding Level of Care Code Est Pt Level 4 (01693) Complex EM visit Add On G2211 Diagnoses Chronic idiopathic constipation K59.04 Constipation type: chronic idiopathic constipation Postprandial abdominal bloating R14.0 Postprandial epigastric pain R10.13 Gastroesophageal reflux disease, unspecified whether esophagitis present K21.9 Esophagitis presence: esophagitis presence not specified Elevated transaminase measurement R74.01 Time Spent (min) 36 Comment 25 minutes spent with patient and additional 10 minutes spent reviewing her records
[2025-04-14 08:49] VITALS: BP 126/68; PULSE 88; O2SAT 100; BMI 41.2
--- OUTSIDE RECORDS SUMMARY | 2025-04-14 08:52 | XMS_ITS | Clinical Summary ---
Author Organization [facility] Address [address] [place] [address] Phone Care Team Providers Care Senior Grants Officer Name Role Phone RichardBernadine Irina KING Primary Care Provider [phone] Allergies No known active allergies Medications ascorbic [...] mg total) by mouth at bedtime. Active Social History Tobacco Use Types Packs/Day Years [...] Cancer Screening: Pap Smear 2013 COVID-19 Vaccine () 05/03/2024 Depression Screening 09/02/2024 Diabetes: Annual Urine Albumin-Creatinine [...] topic Insurance MEDICA[place] - [place] Care Teams Senior Grants Officer Relationship Specialty Start Date End Date Bernadine Ramos NP [address] [place] [phone] PCP - General 10/02/23
--- OUTSIDE RECORDS SUMMARY | 2025-04-14 08:52 | XMS_ITS | Encounter Summary ---
Author Organization [facility] Address [address] [place] [address] Phone Care Team Providers Care Scaffold Erector Name Role Phone Austyn Lane MD Primary Care Provider [phone] Encounter Details Date Type Department Care Team (Late st Contact Info) Description 12/01/2012 Documentation [facility] [place] [facility] [address] [place] [address] Family Medicine, Physician [address] [place], [place] [id number] Social History Tobacco Use Types Packs/Day Years [...] on filedocumented in this encounter Care Teams Scaffold Erector Relationship Specialty Start Date End Date Austyn Lane MD [address] [place] [address] T[place] Webb [address] PCP - General 04/12/17 11/14/22 documented as of this encounter
--- OUTSIDE RECORDS SUMMARY | 2025-04-14 08:52 | XMS_ITS | Encounter Summary ---
Author Organization [employer] Address [address] [place] [address] [address] [place] [address] Care Team Providers Care Beet Worker Name Role Phone Bernadine Ramos Primary Care Provider [phone] Reason for Visit * Reason Onset Date Comments FYI 03/22/2023 Encounter Details Date Type Department Care Team ([facility] st Contact Info) Description 03/22/2023 Telephone [facility] [address] [place] [address] Bernadine Ramos ANP [address] [place] [address] FYI Social History Tobacco Use Types Packs/Day [...] - 03/22/2023 2:39 PM EDT Tc from [place] with [facility] stating will be renewing pt care of plan on March 27 will be seeing pt 5 x a week for medication. documented in this encounter Plan of Treatment Upcoming Encounters Date Type Department Care Team (Late st Contact Info) Description 05/27/2025 2:30 PM EDT Office Visit [facility] [address] [place] [address] Bernadine Ramos ANP [address] [place] [address] documented as of this encounter Visit Diagnoses Not on filedocumented in this encounter Additional Health Concerns Assessment Noted Time PHQ-9 Depression Total Score: 0 03/19/20 23 2:00 PM EDT documented as of this encounter Care Teams Beet Worker Relationship Specialty Start Date End Date Bernadine Ramos ANP [address] [place] [address] PCP - General Family Medicine 02/16/20 [facility] 07/11/15 documented as of this encounter
== END 2025-04-14 09:07 | disposition home or self-care (01) ==
LOC: HO.HGI 08:39
PROVIDERS: PCP Nurse Practitioner Primary Care; Visit Provider Nurse Practitioner Family
DX: K59.04 Chronic idiopathic constipation (principal); R14.0 Abdominal distension (gaseous); R10.13 Epigastric pain; K21.9 Gastro-esophageal reflux disease without esophagitis; R74.01 Elevation of levels of liver transaminase levels
CPT/HCPCS: 99214

== ENCOUNTER → 2025-04-14 08:38 | Outpatient (BNVA) | payer MEDICAID, SELFPAY | PROVIDERS: PCP Nurse Practitioner Primary Care; Visit Provider Nurse Practitioner Family | DX: K21.9 Gastro-esophageal reflux disease without esophagitis (principal); K59.04 Chronic idiopathic constipation; R14.0 Abdominal distension (gaseous); R10.13 Epigastric pain; R74.01 Elevation of levels of liver transaminase levels; E55.9 Vitamin D deficiency, unspecified; R19.7 Diarrhea, unspecified | CPT/HCPCS: 99212 ==

== ENCOUNTER 2025-06-02 14:30 | Outpatient (RCR) | payer MEDICAID, SELFPAY ==
[2025-04-05 13:57] VITALS: BP 133/67; PULSE 80; RESP 16; TEMP 36.6; O2SAT 100
[2025-04-12 13:53] VITALS: BP 129/69; PULSE 81; RESP 16; TEMP 36.2; O2SAT 100
[2025-04-12] MEDS: 0.9 % Sodium Chloride Flush 10 ML SYRINGE 5 ML IVFLUSH (14:21)
[2025-04-19 13:53] VITALS: BP 114/65; PULSE 87; RESP 16; TEMP 37.1; O2SAT 100
[2025-04-29 13:46] VITALS: BP 128/68; PULSE 93; RESP 16; TEMP 37.2; O2SAT 99
[2025-04-29 14:06] LABS: Hematocrit 33.9 % (37.0-47.0); Hemoglobin 10.4 g/dl (12.0-16.0); Mean Corpuscular HGB Conc 30.7 g/dl (31.0-35.0); Mean Corpuscular Hemoglobin 25.1 pg (27.0-33.0); Mean Corpuscular Volume 81.7 fL (80.0-98.0); NRBC Abs Auto 0.000 X10*3/uL (0.0-0.012); NRBC Pct Auto 0.0 /100WBC (0.0-0.2); Platelet Count 151 X10*3/uL (160-400); Red Blood Count 4.15 X10*6/uL (4.20-5.50); White Blood Count 10.6 X10*3/uL (4.8-10.8)
[2025-04-29 14:46] LABS: Ferritin 139 ng/mL (10-122)
[2025-05-04 13:51] VITALS: BP 108/66; PULSE 88; RESP 16; TEMP 36.6; O2SAT 100
[2025-05-11 14:02] VITALS: BP 126/71; PULSE 95; RESP 16; TEMP 36.7; O2SAT 100
[2025-05-21 14:36] VITALS: BP 132/86; PULSE 90; RESP 16; TEMP 36.6; O2SAT 98
[2025-06-02 14:07] VITALS: BP 133/82; PULSE 88; RESP 16; TEMP 36.7; O2SAT 100
[2025-06-02 14:24] LABS: Hematocrit 35.8 % (37.0-47.0); Hemoglobin 11.8 g/dl (12.0-16.0); Mean Corpuscular HGB Conc 33.0 g/dl (31.0-35.0); Mean Corpuscular Hemoglobin 27.5 pg (27.0-33.0); Mean Corpuscular Volume 83.4 fL (80.0-98.0); NRBC Abs Auto 0.000 X10*3/uL (0.0-0.012); NRBC Pct Auto 0.0 /100WBC (0.0-0.2); Platelet Count 160 X10*3/uL (160-400); Red Blood Count 4.29 X10*6/uL (4.20-5.50); White Blood Count 8.9 X10*3/uL (4.8-10.8)
[2025-06-02 15:02] LABS: Ferritin 317 ng/mL (10-122)
== END 2025-06-02 14:36 | disposition home or self-care (01) ==
LOC: HO.INF 14:30
PROVIDERS: Visit Provider Internal Medicine Medical Oncology
DX: D50.9 Iron deficiency anemia, unspecified (principal)
CPT/HCPCS: 36415; 82728; 85027; 96365; 96374; J1756

== ENCOUNTER 2025-06-18 13:20 | Outpatient (AMB) | payer MEDICAID, SELFPAY ==
--- NOTE | 2025-06-18 13:21 | MHC.OFFVIS ---
Vital Signs 06/18/25 13:24 Height 5 ft 6 in Weight 248 lb BMI 40.0 BP 129/66 Blood Pressure Location Rt brachial Position Sitting Pulse 92 Pulse Source Pulse Oximeter Pulse Oximetry (%) 98 Oxygen Delivery Method Room Air Intake Visit Reasons: 2 month f/u constipation Intake Note: Pt c/o; abdominal pain in the morning, denies nausea or vomiting, reports diarrhea, denies blood in stools. Data Management Specialist Required: No Accompanied by: Self / Same As Patient Allergies Seasonal Allergies Allergy (Verified 06/18/25 13:26) Sneezing HPI HPI 2 month f/u constipation: Details: LAST VISIT Constipation Postprandial abdominal bloating Postprandial epigastric pain Gastroesophageal reflux disease Elevated transaminase measurement Plan Patient is doing well on mesalamine, denies having any symptoms. Will keep her on it for few more months. Patient will start taking Linzess daily. Increase fluid intake and activity to promote better bowel motility. Patient will continue taking Nexium in the morning and famotidine at bedtime. Avoid dietary triggers and late night snacking. Staying upright for minimum 3 hours after meals discussed with patient. Will recheck vitamin D, B12 and folate. Patient will follow-up in the office in 2 months, sooner on as needed basis. She is agreeable to this plan and verbalizes understanding of instructions. She was given the opportunity to ask questions and all questions answered. ? Thank you for allowing me to participate in her care Orders Vitamin D 25-OH (D2 and D3) Today E55.9 Vitamin B12 and Folate Today R19.7 New linaclotide (Linzess) 145 mcg PO DAILY 30 caps 2RF TODAY'S VISIT Patient is here today for follow-up. Patient reports that she has been experiencing diarrhea. She takes Linzess as needed. Reports waking up in the morning nauseous with epigastric pain. Patient is taking mesalamine daily. Patient is taking Ozempic, reports that she is eating better. She is eating smaller amounts and is losing weight, however she feels that her symptoms of abdominal pain and bloating are caused by the medication. Patient will talk to her PCP to see if they can switch it to Mounjaro. Patient denies melena, hematochezia, unintentional weight loss or ribbon like stools. Patient reports occasional dyspepsia without dysphagia or odynophagia. Patient denies any other GI concerning symptoms. [facility] Medical History Reactive hypoglycemia Hypoglycemia Constipation Post-surgical hypothyroidism Elevated liver enzymes Varicose veins of bilateral lower extremities with other complications Obstructive sleep apnea Rheumatoid arthritis Depression ADHD Hypothyroid Morbid obesity Surgical History History of colonoscopy H/O prior ablation treatment (~2017) History of vein stripping (~2017) Hx of thyroidectomy Family History Father No problems noted. Mother No problems noted. Brother No problems noted. Brother No problems noted. Brother No problems noted. Other No family history of cancer Social History Household Members: Family Household Members Other:: parents Housing: House Are you a primary overnight caregiver to a significant other at home: No Do you presently have visiting nurse or other home services: No Alcohol intake: never Patient Tobacco Use Status: Never used Tobacco service: No Current occupational status: disabled Female Reproductive History Menstrual Age of Menarche: 13 Review of Systems Const Denies weight gain and Denies weight loss ENT Reports no additional complaints, Denies dysphagia and Denies odynophagia Card Reports no additional complaints Resp Reports no additional complaints GI Reports abdominal pain (Epigastric), Denies belching, Denies melena, Reports bloating, Denies change in bowel habits, Reports constipation, Denies dysphagia, Denies excessive flatus, Denies dyspepsia, Reports heartburn, Denies diarrhea, Reports loose stools, Reports nausea, Denies odynophagia and Denies vomiting Reports no additional complaints Musc Reports no additional complaints Neuro Reports no additional complaints Psych Reports no additional complaints Endo Reports no additional complaints Physical Exam Vital Signs: Last Vital Signs Pulse 92 06/18/25 13:24 BP 129/66 06/18/25 13:24 Pulse Ox 98 06/18/25 13:24 Oxygen Delivery Method Room Air 06/18/25 13:24 BMI result Body Mass Index 40.0 Const General: healthy appearing and no acute distress Nutritional Appearance: obese Orientation/consciousness: patient oriented x3 Resp Effort & Inspection: normal respiratory effort, able to speak in complete sentences, no tracheal deviation and symmetric chest movement Auscultation: clear to auscultation bilaterally Cardio Rate: regular rate GI Inspection: Yes normal to inspection, No distended and Yes obesity Palpation (GI): Soft to palpation, not firm, nontender and No hepatosplenomegaly present Auscultation: normal bowel sounds General: Yes no CVA tenderness Back/Spine/Pelvis Back: no CVA tenderness Skin General skin exam: elasticity normal, turgor normal and dry skin Neuro General: patient oriented x3 Psych Appearance: grossly normal Mental Status: mental status grossly normal Assessment & Plan Assessment & Plan (1) Constipation: Code(s): K59.00 - Constipation, unspecified Category: Medical Qualifiers: Constipation type: chronic idiopathic constipation Qualified Code(s): K59.04 - Chronic idiopathic constipation (2) Postprandial abdominal bloating: Code(s): R14.0 - Abdominal distension (gaseous) (3) Postprandial epigastric pain: Code(s): R10.13 - Epigastric pain (4) Gastroesophageal reflux disease: Code(s): K21.9 - Gastro-esophageal reflux disease without esophagitis Qualifiers: Esophagitis presence: esophagitis presence not specified Qualified Code(s): K21.9 - Gastro-esophageal reflux disease without esophagitis (5) Elevated transaminase measurement: Code(s): R74.01 - Elevation of levels of liver transaminase levels Plan Will check fecal calprotectin. Hold Linzess if diarrhea. Increase fiber intake to help bulk stools. Will check fecal calprotectin. Continue taking mesalamine daily. Discussed with PCP about switching Ozempic to Mounjaro. Patient can take sucralfate at bedtime. Discussed with patient avoiding dietary triggers in late night snacking. Staying upright for minimum 3 hours after meals discussed with patient. Will check transglutaminase, vitamin B12, folate, vitamin-D level. Patient will return to the office in 10 weeks. Patient will call us if she will have any GI concerning symptoms. She is agreeable to current plan of care and verbalizes understanding of instructions. She was given the opportunity to ask questions and all questions answered. Thank you for allowing me to participate in her care Orders: Orders Calprotectin, Fecal 06/18/25 R15.9 - Full incontinence of feces Transglutaminase Ab IgG 06/18/25 R10.9 - Unspecified abdominal pain Vitamin B12 and Folate 06/18/25 R19.7 - Diarrhea, unspecified Vitamin D 25-OH (D2 and D3) 06/18/25 E55.9 - Vitamin D deficiency, unspecified Transglutaminase IgA 06/18/25 R10.9 - Unspecified abdominal pain Medications: New sucralfate 1 g PO BEDTIME 30 tabs 4RF R19.7 - Diarrhea, unspecified, R10.13 - Epigastric pain Discontinued famotidine Discontinued Reason: Doctor's Order 20 mg PO BEDTIME 90 tabs 1RF K21.9 - Gastro-esophageal reflux disease without esophagitis Coding Level of Care Code Est Pt Level 4 (45975) Complex EM visit Add On G2211 Diagnoses Chronic idiopathic constipation K59.04 Constipation type: chronic idiopathic constipation Postprandial abdominal bloating R14.0 Postprandial epigastric pain R10.13 Gastroesophageal reflux disease, unspecified whether esophagitis present K21.9 Esophagitis presence: esophagitis presence not specified Elevated transaminase measurement R74.01 Time Spent (min) 40 Comment 25 minutes spent with patient and additional 15 minutes spent reviewing her records
[2025-06-18 13:24] VITALS: BP 129/66; PULSE 92; O2SAT 98; BMI 40.0
--- OUTSIDE RECORDS SUMMARY | 2025-06-18 16:02 | XMS_ITS | Encounter Summary ---
Author Organization [employer] Address [address] [place] [address] [address] [place] [address] Care Team Providers Care Structural Architect Name Role Phone Bernadine Ramos Primary Care Provider [phone] Reason for Visit * Reason Onset Date Comments FYI 03/22/2023 Encounter Details Date Type Department Care Team ([facility] st Contact Info) Description 03/22/2023 Telephone [facility] [address] [place] [address] Bernadine Ramos ANP [address] [place] [address] FYI Social History Tobacco Use Types Packs/Day [...] - 03/22/2023 2:39 PM EDT [facility] [place] [facility] stating will be renewing pt care of plan on March 27 will be seeing pt 5 x a week for medication. documented in this encounter Plan of Treatment Upcoming Encounters Date Type Department Care Team (Late st Contact Info) Description 08/20/2025 2:15 PM EST Office Visit [facility] [address] [place] [address] Bernadine Ramos ANP [address] [place] [address] documented as of this encounter Visit Diagnoses Not on filedocumented in this encounter Additional Health Concerns Assessment Noted Time PHQ-9 Depression Total Score: 0 03/19/20 23 2:00 PM EDT documented as of this encounter Care Teams Structural Architect Relationship Specialty Start Date End Date Bernadine Ramos ANP [address] [place] [address] PCP - General Family Medicine 02/16/20 [facility] 07/11/15 documented as of this encounter
--- OUTSIDE RECORDS SUMMARY | 2025-06-18 16:02 | XMS_ITS | Clinical Summary ---
Author Organization [address] [facility] Address [address] [place] [address] Phone Care Team Providers Care Heel Nailing Machine Operator Name Role Phone RichardBernadine Irina KING Primary Care Provider [phone] Allergies No known active allergies Medications ascorbic [...] 03/01/2011 Cervical Cancer Screening: Pap Smear 2013 Depression Screening 09/02/2024 Diabetes: Annual Urine Albumin-Creatinine Ratio (uACR) 11/24/2024 HIV Screening 11/24/2024 Hepatitis C Screening 11/24/2024 Social Influencers of Health Screening 11/24/2024 COVID-19 Vaccine ( season) 2025 Influenza Vaccine (#1) 2025 , 05/18/2022, 06/12/2018, Additional history exists Diabetes: Blood Sugar Control Test (HGBA1C) 05/06/2025 11/03/2024 Cholesterol Screening (Lipid Panel) 11/11/2029 11/11/2024 DTaP,Tdap,and Td Vaccines (9 - Td or Tdap) 02/27/2031 02/27/2021, 02/20/2010, 08/16/2004, Additional history exists RSV Immunization Adult Patients (1 - 1-dose 75+ series) 2067 Hepatitis [...] topic Insurance MEDICAID - [place] Care Teams Heel Nailing Machine Operator Relationship Specialty Start Date End Date Bernadine Ramos NP [address] [place] [phone] PCP - General 10/02/23
--- OUTSIDE RECORDS SUMMARY | 2025-06-18 16:02 | XMS_ITS | Encounter Summary ---
Author Organization [facility] Address [address] [place] [address] Phone Care Team Providers Care Crossband Layer Name Role Phone Austyn Lane MD Primary Care Provider [phone] Encounter Details Date Type Department Care Team (Late st Contact Info) Description 12/01/2012 Documentation [facility] [place] Medicine [address] [place] [address] Family Medicine, Physician [address] [place], [place] [phone] Social History Tobacco Use Types Packs/Day Years [...] on filedocumented in this encounter Care Teams Crossband Layer Relationship Specialty Start Date End Date Austyn Lane MD [address] [place] [address] [place] [address] PCP - General 04/12/17 11/14/22 documented as of this encounter
--- OUTSIDE RECORDS SUMMARY | 2025-06-18 16:02 | XMS_ITS | Encounter Summary ---
Author Organization [employer] Address [address] [place] [address] Care Team Providers Care Animal Assisted Therapist Name Role Phone Bernadine Ramos Primary Care Provider [phone] Reason for Visit * Reason Comments Med Refill Encounter Details Date Type Department Care Team (Late st Contact Info) Description 03/21/2023 Refill [facility] [address] [place] [phone] Bernadine Ramos ANP [address] [place] [phone] Heartburn Social History Tobacco Use Types Packs/Day [...] Description 08/20/2025 2:15 PM EST Office Visit [facility] [address] [place] [phone] Bernadine Ramos ANP [address] [place], [place] [phone] documented as of this encounter Visit Diagnoses Diagnosis Heartburn documented in this encounter Additional Health Concerns Assessment Noted Time PHQ-9 Depression Total Score: 0 03/19/20 23 2:00 PM EDT documented as of this encounter Care Teams Animal Assisted Therapist Relationship Specialty Start Date End Date Bernadine Ramos ANP [address] [place] [address] PCP - General Family Medicine 02/16/20 [facility] 07/11/15 documented as of this encounter
--- OUTSIDE RECORDS SUMMARY | 2025-06-18 16:02 | XMS_ITS | Encounter Summary ---
Author Organization [facility] Address [address] [place] [address] Phone Care Team Providers Care Hand Driller Name Role Phone Austyn Lane MD Primary Care Provider [phone] Encounter Details Date Type Department Care Team (Late st Contact Info) Description 12/21/2011 Documentation [facility] [place] [address] [place] [address] Family Medicine, Physician [address] [place], [place] [phone] Social History Tobacco Use Types Packs/Day Years [...] on filedocumented in this encounter Care Teams Hand Driller Relationship Specialty Start Date End Date Austyn Lane MD [address] [place] [address] [place] [address] PCP - General 04/12/17 11/14/22 documented as of this encounter
--- OUTSIDE RECORDS SUMMARY | 2025-06-18 16:02 | XMS_ITS | Encounter Summary ---
Author Organization [facility] Address [address] [place] [address] Phone Care Team Providers Care Windows Infrastructure Engineer Name Role Phone Austyn Lane MD Primary Care Provider [phone] Encounter Details Date Type Department Care Team (Late st Contact Info) Description 09/29/2012 Documentation [facility] [place] [address] [place] [address] Family Medicine, Physician [address] [place], [place] [phone] Social History Tobacco Use Types Packs/Day Years [...] on filedocumented in this encounter Care Teams Windows Infrastructure Engineer Relationship Specialty Start Date End Date Austyn Lane MD [address] [place] [address] [place] [address] PCP - General 04/12/17 11/14/22 documented as of this encounter
--- OUTSIDE RECORDS SUMMARY | 2025-06-18 16:02 | XMS_ITS | Encounter Summary ---
Author Organization [facility] Address [address] [place] [address] Phone Care Team Providers Care Pressroom Foreman Name Role Phone Austyn Lane MD Primary Care Provider Encounter Details Date Type Department Care Team (Late st Contact Info) Description 09/26/2012 Documentation [facility] [place] [address] [place] [address] Family Medicine, Physician [address] [place], [place] [phone] Social History Tobacco Use Types Packs/Day Years [...] on filedocumented in this encounter Care Teams Pressroom Foreman Relationship Specialty Start Date End Date Austyn Lane MD [address] [place] [address] T[place] Webb [address] PCP - General 04/12/17 11/14/22 documented as of this encounter
--- OUTSIDE RECORDS SUMMARY | 2025-06-18 16:02 | XMS_ITS | Encounter Summary ---
Author Organization [employer] Address [address] [place] [address] [address] [place] [address] Care Team Providers Care Wildland Firefighter Name Role Phone Bernadine Ramos Primary Care Provider [phone] Encounter Details Date Type Department Care Team (Late st Contact Info) Description 05/29/2023 Orders Only [facility] [address] [place] [phone] Provider, MD Estephanie Social History Tobacco Use [...] Description 08/20/2025 2:15 PM EST Office Visit [facility] [address] [place] [phone] Bernadine Ramos ANP [address] [place], [place] [phone] documented as of this encounter Procedures Procedure [...] documented as of this encounter Care Teams Wildland Firefighter Relationship Specialty Start Date End Date Bernadine Ramos ANP [address] [place] [address] PCP - General Family Medicine 02/16/20 [facility] 07/11/15 documented as of this encounter
--- OUTSIDE RECORDS SUMMARY | 2025-06-18 16:03 | XMS_ITS | Clinical Summary ---
Author Organization [employer] Address [address] [facility] 7[address] [place] [address] Care Team Providers Care Resizer Operator Name Role Phone Bernadine Ramos Primary Care Provider [phone] Allergies No known active allergies Medications albuterol [...] tablet Take 1 tablet by mouth. Active polyvinyl alcohol (Liquifilm Tears) 1.4 % ophthalmic solution apply 1-2 drops in both eyes 4-6 times per day 9 Active cholecalciferol (Vitamin D-3) 50 MCG (1999 [...] 60 tablet 3 Active Continuous Blood Gluc Thermoplastic Technician (FreeStyle Angi 2 [place]) deviceIndication s:Type 2 diabetes mellitus with hypoglycemia without coma, without long-term current use of insulin (HCC),Hypoglycem ia Use w/ sensor 1 each 3 Active Blood Pressure kitIndications:E levated blood pressure reading 1 kit in the morning. 1 kit 3 Active Mometasone Furoate (Asmanex HFA) 100 MCG/ACT aerosol TAKE 1 PUFF BY MOUTH TWICE A DAY 13 g 1 4 Active FREESTYLE TEST STRIPS test stripIndications :Type 2 diabetes mellitus with hypoglycemia without coma, without long-term current use of insulin (HCC) TEST BLOOD SUGAR UP TO 3 TIMES A DAY EVERY DAY NEEDED DIRECTED 100 strip 3 4 Active clotrimazole (Lotrimin) 1 % creamIndications :Tinea cruris Apply topically 2 times daily. 60 g 1 4 Active witch danny-glycerin (Tucks) pad Use as needed up to 4x/d 100 each 11 4 Active Continuous Glucose Sensor (FreeStyle Angi 2 Sensor) miscIndications: Type 2 diabetes mellitus with hypoglycemia without coma, without long-term current use of insulin (HCC),Hypoglycem ia USE 1 SENSOR EVERY 14 DAYS. 2 [...] dry feet 454 g 11 5 Active ferrous sulfate 325 (65 Fe) MG tabletIndication s:Iron deficiency anemia, unspecified iron deficiency anemia type TAKE 1 TABLET BY MOUTH EVERY DAY WITH VITAMIN C. DO NOT TAKE WITH DAIRY PRODUCTS OR THYROID MEDICINE 90 tablet 3 5 Active Continuous Glucose Sensor (FreeStyle Angi 2 Plus Sensor) miscIndications: Type 2 diabetes mellitus with other specified complication, without long-term current use of insulin ([facility]) 1 each every 14 (fourteen) days. 2 each 11 5 Active esomeprazole (NexIUM) [address] capsule Take 40 mg by mouth Once per day. Active famotidine (Pepcid) 20 MG tablet Take 20 mg by mouth at bedtime. Active Apriso 0.375 g 24 hr capsule Take 1.5 g by mouth in the morning. 5 Active montelukast (Singulair) 10 MG tablet TAKE 1 TABLET BY MOUTH EVERY DAY IN THE EVENING 90 tablet 3 5 Active Ozempic, 2 MG/DOSE, 8 MG/3ML solution pen-injectorIndi cations:Type 2 diabetes mellitus with other specified complication, without long-term current use of insulin ([facility]) INJECT 0.75 ML (2 MG) UNDER THE SKIN 1 (ONE) TIME PER WEEK. 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 Acquired hypothyroidism 04/14/2018 Anxiety 04/14/2018 Menstrual bleeding problem 04/14/2018 Encounters Date Type Department Care Team Description 06/04/2025 Telephone [facility] [address] [place] [phone] Bernadine Ramos ANP 05/27/2025 2:30 PM EDT Office Visit [facility] [address] [place] [address] Bernadine Ramos ANP Cyst of skin of left breast (Primary Dx); Type 2 diabetes mellitus with other specified complication, without long-term current use of insulin ([facility]); Encounter for immunization 05/27/2025 Travel 05/25/2025 Telephone [facility] [address] [place] [phone] Bernadine Ramos ANP chart prep 05/05/[address] [address] Yanelis Norman RN 04/13/2025 Refill [facility] [address] [place] [address] Bernadine Ramos ANP Type 2 diabetes mellitus with other specified complication, without long-term current use of insulin ([facility]) 04/01/2025 Orders Only GENERIC EXTERNAL DATA DEPARTMENT Provider, Generic External Data 03/26/[address] [address] Bernadine Ramos ANP from Last 3 Months Immunizations Immunization Administration Dates Next Due DTP [...] 05/27/2013,05/07/2012,09/19/2011,07/24 Influenza, seasonal, injecta ble, preservative free 05/27/2025,11/03/2024 MMR 10/08/1996,10/24/1993 Meningococcal MCV4P [id number]-135 09/17/2006 Novel [id number], all formulations 06/21/2009 Pneumococcal Conjugate PCV 20 [...] Sign Reading Time Taken Comments Blood Pressure 110/74 05/27/2025 2:45 PM EDT Pulse 101 05/27/2025 2:45 PM EDT Temperature 36.1 C (97 F) 05/27/2025 2:45 PM EDT Respiratory Rate 20 05/27/2025 2:45 PM EDT Oxygen Saturation 96% 05/27/2025 2:45 PM EDT Inhaled Oxygen Concentration - - Weight 112 kg (247 lb 8 oz) 05/27/2025 2:45 PM E DT Height 162.6 cm (5' 4 ) 05/27/2025 2:45 PM EDT Body Mass Index 42.48 05/27/2025 2:45 PM EDT Plan of Treatment Upcoming Encounters Date Type Department Care Team (Late st Contact Info) Description 08/20/2025 2:15 PM EST Office Visit [facility] [address] [place], [place] [phone] Bernadine Ramos ANP [address] [place] [address] Health Maintenance Due Date Last Done Comments HIV Screening 1992 Eye Exam 2002 Family Planning (PISQ) 2007 Hepatitis C Screening 2010 Diabetes: Urine Protein Screening 2011 Hepatitis A Vaccines (2 of 2 - 2-dose series) 08/31/2011 03/01/2011 COVID-19 Vaccine ( season) 2025 Depression Screening 06/23/2025 06/23/2024, 06/23/20 24 SDOH Screening 06/23/2025 06/23/2024 Diabetes: Hemoglobin A1C 08/26/2025 025, 02/04/2025, 11/03/2024, Additional history exists Diabetes: Foot Exam 11/03/2025 11/03/2024, 11/03/2024, 11/03/2024, Additional history exists Lipid Panel 11/11/2025 11/11/2024, 09/02, 09/21/2021 Alcohol/Substance Use Screening 02/04/2026 02/04/2025 Disability Screening 02/04/2026 02/04/2025 Cervical Cancer Screening 02/07/2026 HPV/Cotest 02/07/2026 02/07/2021, 02/07/2021 Pap Smear 02/07/2026 02/07/2021 Tobacco Screening 05/27/2026 05/27/2025 DTaP/Tdap/Td Vaccines (8 - Td or Tdap) [...] Years) and At-Risk Patients (6 to 49) Years Completed 10/02/2023 Influenza Vaccine Completed 05/27/2025, , 05/18/2022, Additional history exists Meningococcal B Vaccine Aged Out No l onger eligible based on patient's age to complete this topic RSV under 20 months Aged Out No longe r eligible based on patient's age to complete this topic Rotavirus Vaccines Aged Out No longer eligible based on patient's age to complete this topic Procedures Procedure Name Priority Date/Time Associated Diagnosis Comments POCT GLYCATED HEMOGLOBIN, TOTAL Routine 05/27/2025 2:48 PM EDT Type 2 diabetes mellitus with other specified complication, without long-term current use of insulin ([facility]) POCT GLUCOSE Routine 05/27/2025 2:46 PM EDT Type 2 diabetes mellitus with other specified complication, without long-term current use of insulin ([facility]) TSH Routine 04/01/2025 1:51 PM EDT T4, FREE Routine 04/01/2025 1:51 PM EDT CBC Routine 04/01/2025 1:51 PM EDT CHLAMYDIA/N. GONORRHOEAE RNA, TMA, UROGENITAL Routine 04/01/2025 1:00 PM EDT LIPID PANEL, STANDARD Routine 11/11/2024 10:49 AM EDT Type 2 diabetes mellitus with hypoglycemia without coma, without long-term current use of insulin ([facility]) ZZZ HISTORICAL HPV E6/E7 RFLX BECCA 16 18/45 Routine 02/07/2021 3:19 PM EDT HM PAP/HPV Routine 02/07/2021 from Last 3 Months or Most Recently Relevant to Health Maintenance Results * POCT Hgb A1c (05/27/2025 2:48 PM EDT) Hemoglobin A1C 5.7 4.0 - 5.7 % QC Media Lot # [id number] Lot# Expiration Date ,[id number] Blood 05/27/2025 2:48 PM EDT [facility] POINT OF CARE TEST ENTER/EDIT OR DERABLES Final Result * POCT Glucose (05/27/2025 2:46 PM EDT) [facility] Glucose Blood, POC 103 60 - 200 mg/dL QC Media Lot # [id number] Lot# Expiration Date [id number] Blood Capillary blood specimen / Unknown 05/27/2025 2:46 PM EDT [facility] ANP POINT OF CARE TEST ENTER/EDIT OR DERABLES Final Result * (ABNORMAL) CBC (04/01/2025 1:51 PM EDT) [facility] White Blood Count 11.4(H) 4.8 - 10.8 X10*3/uL [facility] Red Blood Count 4.26 4.20 - 5.50 X10*6/uL [facility] Hemoglobin 9.9(L) 12.0 - 16.0 g/dl [facility] Hematocrit 33.2(L) 37.0 - 47.0 % [facility] Mean Corpuscular Volume 77.9(L) 80.0 - 98.0 fL [facility] Mean Corpuscular Hemoglobin 23.2(L) 27.0 - 33.0 pg [facility] Mean Corpuscular HGB Conc 29.8(L) 31.0 - 35.0 g/dl [facility] Red Cell Distribution Width 15.7 11.0 - 16.0 % [facility] Platelet Count 194 160 - 400 X10*3/uL [facility] Mean Platelet Volume 12.4(H) 9.4 - 12.3 fL [facility] NRBC Pct Auto 0.0 0.0 - 0.2 /100WBC [facility] NRBC Abs Auto 0.000 0.0 - 0.012 X10*3/uL [facility] 04/01/2025 1:51 PM EDT 04/01/2025 1:51 PM EDT Generic External Data Provider LAB BLOOD ORDERAB LES Final Result Performing Organization Address [facility] de Phone Number [facility] [address] [place] [phone] * (ABNORMAL) TSH (04/01/2025 1:51 PM EDT) [facility] Thyroid Stimulating Hormone 52.81(H) 0.32 - 4.0 uIU/mL [facility] Comment:Note: A sustained TS H level above 2.5 uIU/mL may warrant further investigation. TSH 3rd Generation ([facility]) 04/01/2025 1:51 PM EDT 04/01/2025 1:51 PM EDT Generic External Data Provider LAB BLOOD ORDERAB LES Final Result Performing Organization Address [facility] de Phone Number [facility] [address] [place] [phone] * (ABNORMAL) T4, Free (04/01/2025 1:51 PM EDT) [facility] Free T4 (Free Thyroxine) 0.55(L) 0.71 - 1.85 ng/dL [facility] 04/01/2025 1:51 PM EDT 04/01/2025 1:51 PM EDT Generic External Data Provider LAB BLOOD ORDERAB LES Final Result Performing Organization Address [facility] Co de Phone Number [facility] [address] [place] [phone] * Chlamydia/N. Gonorrhoeae RNA, TMA, Urogenitial (04/01/2025 1:00 PM EDT) [facility] CT PCR NOT DETECTED Not Detect. [facility] Comment:A not detected test result does not exclude the possibilityof infection because test results can be affected byimproper specimen collection, concurrent antibiotic therapy,or the number of organisms in the specimen which may bebelow the sensitivity of the test. As with many diagnostictests, results from the Xpert CT/NG assay should beinterpreted in conjunction with other laboratory andclinical data available to the clinician.Xpert CT/NG performance has not been evaluated in patientsless than 14 years of age. The assay should not be used forthe evaluationof suspected sexual abuse or for other medico-legalindications. Additional testing is recommended in anycircumstance when false positive or false negative resultscould lead to adverse medical, social or psychologicalconsequences. NG PCR NOT DETECTED Not Detect. [facility] Comment:A not detected test result does not exclude the possibilityof infection because test results can be affected byimproper specimen collection, concurrent antibiotic therapy,or the number of organisms in the specimen which may bebelow the sensitivity of the test. As with many diagnostictests, results from the Xpert CT/NG assay should beinterpreted in conjunction with other laboratory andclinical data available to the clinician.Xpert CT/NG performance has not been evaluated in patientsless than 14 years of age. The assay should not be used forthe evaluationof suspected sexual abuse or for other medico-legalindications. Additional testing is recommended in anycircumstance when false positive or false negative resultscould lead to adverse medical, social or psychologicalconsequences. 04/01/2025 1:00 PM EDT 04/01/2025 3:16 PM EDT us Generic External Data Provider LAB MICROBIOLOGY - GENERAL ORDERABLES Final Result [facility] [address] [place] [address] [phone] * (ABNORMAL) Lipid Panel, Standard (11/11/2024 10:49 AM EDT) Triglycerides 182(H) <150 mg/dL [facility] Comment:Desirable Triglyceri de: less than 150 mg/dLBorderline High Triglyceride 150-199 mg/dLHigh Triglyceride: 200-499 mg/dLVery High Triglyceride: greater than or equal to 5OO mg/dL Cholesterol 192 <200 mg/dL [facility] Comment:Desirable Cholestero l: less than 200 mg/dLBorderline High Cholesterol: 200-239 mg/dLHigh Cholesterol: greater than 239 mg/dL LDL Cholesterol Calculated 125(H) <100 mg/dL [facility] Comment:Desirable LDL: less than 100 mg/dLNear Optimal/Above Optimal LDL: 110- 129 mg/dLBorderline High LDL: 130-159 mg/dLHigh LDL: 160-189 mg/dLVery High LDL: greater than or equal to 190 mg/dL HDL Cholesterol 31(L) >40 mg/dL [facility] Comment:Desirable HDL: great er than 40 mg/dL Note: This HDL assay may give artificially low results in patients with liver disease. Blood Venous blood specimen / Unknown 11/11/2024 10:49 AM EDT 11/11/2024 10:49 AM EDT [facility] LAB BLOOD ORDERABLES Final Resul t [facility] [address] [place] [phone] * HPV E6/E7 RFLX BECCA 16 18/45 (02/07/2021 3:19 PM EDT) HPV 16 RNA [facility] HPV 18/45 RNA [facility] HPV E6 E7 ADD [facility] HPV mRNA E6/E7 rflx Not Detected Not Detected [facility] Comment: Methodology: Lane Attendant-Mediated Amplification This assay detects E6/E7 viral messenger RNA (mRNA) from 14 high-risk HPV types (16,18,31,33,35,39,45,51,52,56,58,59,66,68). The analytical performance characteristics of this assay have been determined by [employer]. The modifications have not been cleared or approved by the FDA. This assay has been validated pursuant to the CLIA regulations and is used for clinical purposes. For additional information, please refer to http://education.[employer].citiservi/faq/KLP489z5 (This link if provided for information/ educational purposes only.) THIS TEST WAS PERFORMED AT: [facility] [address] [place] [address] [address],[place] [address] KARIE PEREZ MD 02/07/2021 3:19 PM EDT Giorgio Mock MD HISTORICAL/NON ORDERABLE LABS Fi nal Result [facility] [address] * Pap Smear (02/07/2021) Historical Provider HEALTH MAINTENANCE Final Result from Last 3 Months or Most Recently Relevant to Health Maintenance Insurance [facility] C3 Care Teams Resizer Operator Relationship Specialty Start Date End Date Bernadine Ramos ANP [address] [place] [address] PCP - General Family Medicine 02/16/20 [facility] 07/11/15
--- OUTSIDE RECORDS SUMMARY | 2025-06-18 16:03 | XMS_ITS | Clinical Summary ---
Author Organization [facility] Address [address] [place] [phone] Phone Care Team Providers Care Human Resources Project Coordinator Name Role Phone Unavailable Primary Care [...] AM EDT Pulse - - Temperature 36.5 C (97.7 F) 05/27/2013 12:00 AM EDT Respiratory Rate - - Oxygen Saturation - [...] 10/08/1996, Additional history exists Influenza Vaccines (#1) 2025 05/27/20 13, 05/07/2012, 09/19/2011, Additional history exists COVID-19 Vaccine ( season) 2025 Hepatitis B Vaccines Completed 05/18/1993, 02/13/1993, 1992 [...] complete this topic Procedures * Due to [place] state law, this organization might not be sharing sensitive test results. Procedure Name Priority Date/Time Associated Diagnosis Comments CHLAMYDIA AND GONORRHEA, AMPLIFIED Routine 08/08/2010 1:32 PM EST from Last 3 Months or Most Recently Relevant to Health Maintenance Results * Due to [place] state law, this organization might not be sharing sensitive test results. * Chlamydia and Gonorrhoea, Amplified (08/08/2010 1:32 PM EST) URINE CHLAMYDIA AMP PROBE NEGATIVE [facility] Comment: NO CHLAMYDIA TRACHOMATIS RNA DETECTED IN THIS PATIENT'S SAMPLE. (REFERENCE RANGE/NORMAL VALUE: NOT DETECTED) URINE GC AMP PROBE NEGATIVE [facility] Comment: NO NEISSERIA GONORRHOEAE RNA DETECTED IN THIS PATIENT'S SAMPLE. (REFERENCE RANGE/NORMAL VALUE: NOT DETECTED) NOTE: THIS TEST USES FLIGHT TEST DATA ACQUISITION TECHNICIAN MEDIATED AMPLIFICATION METHOD TO DETECT rRNA FROM [...] PM EST URINE CHLAMYDIA GC AMP PROBE Veronica Lux NP LAB MICROBIOLOGY - GENERAL OR DERABLES Final Result [facility] [address] [place] [address], [place] from Last 3 Months or Most Recently Relevant to Health Maintenance
--- OUTSIDE RECORDS SUMMARY | 2025-06-18 16:03 | XMS_ITS | Encounter Summary ---
Author Organization [facility] Address [address] [place] [address] Phone Care Team Providers Care Retail Training Manager Name Role Phone Austyn Lane MD Primary Care Provider [phone] Encounter Details Date Type Department Care Team (Late st Contact Info) Description 11/10/2009 Documentation [facility] [address] [place] [address] Family Medicine, Physician [address] [place], [place] [phone] Social History Tobacco Use Types Packs/Day Years [...] on filedocumented in this encounter Care Teams Retail Training Manager Relationship Specialty Start Date End Date Austyn Lane MD [address] [place] [address] TATE Webb [phone] PCP - General 04/12/17 11/14/22 documented as of this encounter
--- OUTSIDE RECORDS SUMMARY | 2025-06-18 16:03 | XMS_ITS | Encounter Summary ---
Author Organization [facility] Address [address] [place] [phone] Phone Care Team Providers Care Wood Bucker Name Role Phone Austyn Lane MD Primary Care Provider [phone] Encounter Details Date Type Department Care Team (Late st Contact Info) Description 04/06/2013 Documentation [facility] Family Medicine [address] [place] [address] Family Medicine, Physician [address] [place], [place] [phone] Social History Tobacco Use Types Packs/Day Years [...] on filedocumented in this encounter Care Teams Wood Bucker Relationship Specialty Start Date End Date Austyn Lane MD [address] [place] [address] TATE Webb [phone] PCP - General 04/12/17 11/14/22 documented as of this encounter
--- OUTSIDE RECORDS SUMMARY | 2025-06-18 16:03 | XMS_ITS | Encounter Summary ---
Author Organization [employer] Address [address] [facility] [address] [place] [address] Care Team Providers Care Mechanical Manufacturing Engineer Name Role Phone Bernadine Ramos Primary Care Provider Reason for Visit * Reason Onset Date Comments Medication Question 11/27/2024 Encounter Details Date Type Department Care Team ([facility] st Contact Info) Description 11/27/2024 Telephone [facility] [address] [place] [address] Bernadine Ramos ANP [address] [place] [address] Medication Question Social History Tobacco Use Types [...] covered by the Insurance. Contact pt at [phone] documented in this encounter Plan of Treatment Upcoming Encounters Date Type Department Care Team (Late st Contact Info) Description 08/20/2025 2:15 PM EST Office Visit [facility] [address] [place] [address] Bernadine Ramos ANP [address] [place] [address] documented as of this encounter Visit Diagnoses Not on filedocumented in this encounter Additional Health Concerns Assessment Noted Time PHQ-9 Depression Total Score: 8 06/23/20 24 10:48 AM EDT documented as of this encounter Care Teams Mechanical Manufacturing Engineer Relationship Specialty Start Date End Date Bernadine Ramos ANP [address] [place] [address] PCP - General Family Medicine 02/16/20 [facility] 07/11/15 documented as of this encounter
--- OUTSIDE RECORDS SUMMARY | 2025-06-18 16:03 | XMS_ITS | Encounter Summary ---
Author Organization [facility] Address [address] [place] [address] Phone Care Team Providers Care Math And Sciences Department Chair Name Role Phone Austyn Lane MD Primary Care Provider Encounter Details Date Type Department Care Team (Late st Contact Info) Description 04/18/2017 Conversion Encounter [facility] [address] [facility] [place] [address] Social History Tobacco Use Types Packs/Day Years [...] on filedocumented in this encounter Care Teams Math And Sciences Department Chair Relationship Specialty Start Date End Date Austyn Lane MD [address] [facility] [place] [address] PCP - General 04/12/17 11/14/22 documented as of this encounter
== END 2025-06-18 15:15 | disposition home or self-care (01) ==
LOC: HO.HGI 13:21
PROVIDERS: PCP Nurse Practitioner Primary Care; Visit Provider Nurse Practitioner Family
DX: K59.04 Chronic idiopathic constipation (principal); R14.0 Abdominal distension (gaseous); R10.13 Epigastric pain; K21.9 Gastro-esophageal reflux disease without esophagitis; R74.01 Elevation of levels of liver transaminase levels
CPT/HCPCS: 99214

== ENCOUNTER 2025-06-18 13:20 | Outpatient (REF) | payer MEDICAID, SELFPAY ==
[2025-06-18 16:21] LABS: Folate 9.4 ng/mL (> or = 4.0); Vitamin B12 231 pg/mL (200-900)
[2025-06-21 21:24] LABS: Transglutaminase Ab IgG <1.0 U/mL
[2025-06-24 14:43] LABS: Vitamin D 25-OH, D2 <4 ng/mL; Vitamin D 25-OH, D3 14 ng/mL; Vitamin D 25-OH, Total 14 ng/mL (30-100)
== END 2025-06-18 13:21 | disposition home or self-care (01) ==
LOC: HO.LAB 13:20
PROVIDERS: PCP Nurse Practitioner Primary Care; Visit Provider Nurse Practitioner Family
DX: K59.04 Chronic idiopathic constipation (principal); R14.0 Abdominal distension (gaseous); R10.13 Epigastric pain; K21.9 Gastro-esophageal reflux disease without esophagitis; R74.01 Elevation of levels of liver transaminase levels; R15.9 Full incontinence of feces; R19.7 Diarrhea, unspecified; E55.9 Vitamin D deficiency, unspecified
CPT/HCPCS: 36415; 82306; 82607; 82746; 86364; 99212

== ENCOUNTER 2025-07-08 15:32 | Emergency (ER) | payer MEDICAID, SELFPAY ==
--- OUTSIDE RECORDS SUMMARY | 2025-05-25 08:00 | XMS_ITS | Continuity of Care Document ---
Author Organization [facility] Address [address] [place] [address] Phone Care Team Providers Care Rehabilitation Aide/Scheduler Name Role Phone Terry MAURICIO, IRINA, KVNG, [...] Providers Copied on Encounter [facility], [address]David [place], [id number], [place] tel:[phone] [facility] Encounter for follow-up examination after completed treatment for conditions other than malignant neoplasmPain in left leg 2 5 Terry MAURICIO RVT, KVNG Ferro. [address], [address], [facility], [place], [id number] , [place]. tel:[phone] Referring Provider: Bernadine Ramos NP, [address] [place] [address] [address], [place], [address]. tel:[phone] [facility], [address] [place] [address] [facility] [address]David [place], [id number], [place] [phone] [facility] - [place] Varicose veins of right lower extremity with other complications Sep-2 5 Terry MAURICIO RVT, KVNG Ferro. [address] [place] [address], Suite [facility], [facility], [place], [id number] , [place]. tel:[phone] Referring Provider: Bernadine Ramos NP, [address] [place] [address] [address], [place], [address]. tel:[phone] [facility], [address] [place] [address] [facility] [address], [place], [id number], [place] tel:[phone] [place] Varicose veins of left lower extremity with other complications Sep- 5 Nikko Hniojosa . [address] [place] [address], [facility] [address], [facility], [place], [id number] , [place]. tel:[phone] Referring Provider: Bernadine Ramos NP, [address] [place] [address] [address], [place], [address]. tel:[phone] [facility], [address] [place] [address] [facility] [address], [place], [id number], [place] [phone] [place] Encounter for follow-up examination after completed treatment for conditions other than malignant neoplasmPain in left leg Sep- 5 Terry MAURICIO RVT, KVNG Ferro. [address], [address], [facility] [place], [id number] , [place]. tel:[phone] Referring Provider: Bernadine Ramos NP, [address] [place] [address] [address], [place], [address]. tel:[phone] [facility], [address] [place] [address] [address]David [place], [id number], [place] tel:[phone] [place] Chronic venous hypertension (idiopathic) with inflammation of left lower extremity 5 Terry MAURICIO RVT, KVNG Ferro. [address] [facility], [facility] [address], [facility] [place] [id number] , [place]. tel:[phone] Referring Provider: Bernadine Ramos NP, [address] [place] [address] [address], [place], [address]. tel:[phone] Offic/outpt E&m Estab 5 Min Trial- Telemedicine CT & [place] [facility], [address] [place] [address] [address]David [place], [id number], [place] tel:[phone] CV[place] Varicose veins of right lower extremity with inflammationVa ricose veins of left lower extremity with inflammationTy pe 2 diabetes mellitus without complicationsD isorder of pigmentation, unspecified 5 Terry MAURICIO RVT, KVNG Ferro. [facility], [facility] [address], [facility] [place], [id number] , [place]. [phone] Referring Provider: Bernadine Ramos NP, [address] [place] [address] [address], [place], [address]. tel:[phone] Office/Oupt E&M New Pt 45 Mins- CT & [place] [facility], [address] [place] [address] [address]David [place], [id number], [place] tel:[phone] CV[place] Chronic venous hypertension (idiopathic) with other complications of bilateral lower extremityType 2 diabetes mellitus without complicationsR estless legs syndrome 5 Terry MAURICIO RVT, KVNG Ferro. [address] [facility], [facility] [address], [facility] [place] [id number] , [place]. [phone] Referring Provider: Bernadine Ramos NP, [address] [place] [address] [address], [place], [address]. tel:[phone] [facility], [address] [place] [address] [address], [place], [id number], [place] tel:[phone] CVR - [place] Chronic venous hypertension (idiopathic) with other complications of bilateral lower extremity Terry MAURICIO, RVT, RPVI Pillo. [address], [address], [place], [id number] , [place]. tel:[phone] Referring Provider: Bernadine Ramos ALGORITHM DEVELOPER, [address] [facility] [address], [place], [address]. tel:[phone] Family History Family Member Type Diagnosis Age At Onset No Information Payers Payer name Insurance type Covered green party ID Authoriza tion(s) Medical Assistance [facility] [id number] Social History Type Description Quantity Date Captured [...] to Body mass index (BMI) 45.0-49.9, adult Patient education booklet given Related to Chronic venous hypertension (idiopathic) with other complications of bilateral lower extremity Lifestyle education Related to B brianna mass index (BMI) 45.0-49.9, adult Giving Encouragement to exercise Related to Body mass index (BMI) 45.0-49.9, adult Assessments Type Assessment Date No Information Patient Care Teams Name Effective Dates (start - stop) Status Members No Information
--- NOTE | ~2025-07-08 | XR_ITS ---
EXAMINATION: XR CHEST CLINICAL INFORMATION: cough COMPARISON: 08/22/2024 TECHNIQUE: 2 views of the chest were obtained. FINDINGS: The cardiac, hilar, and mediastinal contours are normal. The lungs are clear bilaterally. There is no pneumothorax or pleural effusion. There is no focal osseous or soft tissue abnormality. XR/XR chest 2V IMPRESSION: Normal chest. Electronically signed by: Oscar Murray MD 07/08/2025 04:19 PM DAPHNE
[2025-07-08 15:37] VITALS: BP 134/63; PULSE 96; RESP 18; TEMP 36.3; O2SAT 98; BMI 41.1
--- NOTE | 2025-07-08 15:38 | ED.GENADULT ---
HPI - General Adult General Chief complaint: Upper Respiratory Symptoms Stated complaint: low V-D; body aches, throat pain, SOB, mucus Time Seen by Provider: 07/08/25 17:45 Related Data Home Medications ?Medication ?Instructions ?Recorded ?Confirmed montelukast 10 mg tablet 10 mg PO BEDTIME 06/01/20 04/14/25 (Singulair) azelastine 205.5 mcg (0.15 %) 1 spray intranasal BID 07/31/22 04/14/25 nasal spray blood sugar diagnostic (FreeStyle 07/31/22 04/14/25 Lite Strips) blood-glucose meter (FreeStyle 07/31/22 04/14/25 Lite Meter kit) bupropion HCl 100 mg tablet,12 hr 100 mg PO BID 07/31/22 04/14/25 sustained-release (Wellbutrin SR) ferrous sulfate 325 mg (65 mg 325 mg PO DAILY 07/31/22 04/14/25 iron) tablet fluoxetine 40 mg capsule 80 mg PO DAILY 07/31/22 04/14/25 fluticasone propionate 110 1 puff inhalation BID 07/31/22 04/14/25 mcg/actuation HFA aerosol inhaler (Flovent HFA) fluticasone propionate 50 2 spray intranasal DAILY 07/31/22 04/14/25 mcg/actuation nasal spray,suspension (Flonase Allergy Relief) levonorgestrel (Mirena) 20 mcg intrauterine DAILY 10/12/22 04/14/25 flash glucose sensor (FreeStyle #1 ea 07/22/24 04/14/25 Angi 2 Sensor kit) trazodone 50 mg tablet 50 mg PO BEDTIME 07/22/24 04/14/25 mometasone 100 mcg/actuation HFA 1 puff inhalation BID 11/20/24 04/14/25 aerosol inhaler (Asmanex HFA) zinc acetate 50 mg (zinc) capsule 50 mg PO DAILY 11/20/24 04/14/25 risperidone 2 mg tablet 2 mg PO BEDTIME 04/14/25 04/14/25 semaglutide 2 mg/dose (8 mg/3 mL) 2 mg subcut QWEEK 04/14/25 04/14/25 subcutaneous pen injector (Ozempic) ascorbic acid (vitamin C) 250 mg 250 mg PO DAILY 07/08/25 tablet blood pressure monitoring machine 07/08/25 clotrimazole 1 % topical cream 1 appl topical BID 07/08/25 diphenhydramine HCl 25 mg tablet 25 mg PO BEDTIME PRN 07/08/25 (Benadryl Allergy) emollient combination no.114 appl topical 07/08/25 glucagon 1 mg solution for 1 mg subcut Q20M PRN 07/08/25 injection (Glucagon Emergency Kit) lancets 28 gauge (FreeStyle 07/08/25 Lancets) polyethylene glycol 3350 17 gram 17 g PO DAILY 07/08/25 oral powder packet polyvinyl alcohol-povidone 0.5 1 drp ophthalmic (eye) BID-QID PRN 07/08/25 %-0.6 % eye drops (Artificial Tears (polyvinyl alcohol/povidone)) witch adnny-glycerin (hamamel) 1 pad topical BID-QID PRN 07/08/25 topical pads Previous Rx's ?Medication ?Instructions ?Recorded hydrocortisone 2.5 % topical cream 1 appl NV BID-QID PRN Itching #30 07/22/24 with perineal applicator grams (Anusol-HC) albuterol sulfate 90 mcg/actuation 1 inh inhalation QID PRN shortness 08/22/24 aerosol inhaler of breath or wheezing #6.7 grams methylcellulose (laxative) 500 mg 500 mg PO DAILY #90 tabs 10/21/24 tablet (Citrucel) esomeprazole magnesium 40 mg 40 mg PO DAILY #90 caps 10/28/24 capsule,delayed release bisacodyl 5 mg tablet,delayed 10 mg (2 x 5 mg) PO BEDTIME #180 12/09/24 release (Dulcolax (bisacodyl)) tabs mesalamine 0.375 gram 1.5 g (4 x 0.375 gram) PO QAM #360 03/11/25 capsule,extended release 24 hr caps (Apriso) cyanocobalamin (vitamin B-12) 1,000 mcg PO DAILY #90 tabs 03/16/25 1,000 mcg tablet (Vitamin B-12) folic acid 1 mg tablet 1 mg PO DAILY #90 tabs 03/16/25 linaclotide 145 mcg capsule 145 mcg PO DAILY #30 caps 04/14/25 (Linzess) levothyroxine 200 mcg tablet 200 mcg PO DAILY #90 tabs 05/06/25 (Synthroid) levothyroxine 50 mcg tablet 50 mcg PO DAILY #90 tabs 05/06/25 (Synthroid) sucralfate 1 gram tablet 1 g PO BEDTIME #30 tabs 06/18/25 cholecalciferol (vitamin D3) 50 50 mcg PO DAILY #90 caps 06/30/25 mcg (2,000 unit) capsule albuterol sulfate 90 mcg/actuation 1 inh inhalation QID PRN shortness 07/08/25 aerosol inhaler (Ventolin HFA) of breath or wheezing #6.7 grams benzonatate 200 mg capsule 200 mg PO TID PRN cough #21 caps 07/08/25 Allergies Allergy/AdvReac Type Severity Reaction Status Date / Time Seasonal Allergies Allergy Sneezing Verified 07/08/25 15:39 [facility] [place] Past Medical History Medical History Reactive hypoglycemia Hypoglycemia Constipation Post-surgical hypothyroidism Elevated liver enzymes Varicose veins of bilateral lower extremities with other complications Obstructive sleep apnea Rheumatoid arthritis Depression ADHD Hypothyroid Morbid obesity Surgical History History of colonoscopy H/O prior ablation treatment (~2017) History of vein stripping (~2017) Hx of thyroidectomy Family History Family History Father No problems noted. Mother No problems noted. Brother No problems noted. Brother No problems noted. Brother No problems noted. Other No family history of cancer Social History Social History Household Members: Family Household Members Other:: parents Housing: House Are you a primary patient care associate to a significant other at home: No Do you presently have visiting nurse or other home services: No Alcohol intake: never Patient Tobacco Use Status: Never used Tobacco Smoked in Last 30 Days: No Use of substances other than those prescribed or required for medical reasons: No Advance Directives: No Advance Directives Information Provided: No Do you have a plan to hurt others: No Plan service: No Current occupational status: disabled Physical Exam ED Vital Signs: BMI result Body Mass Index 41.1 Course Course Course Narrative: Rapid medical examination performed in triage by Brenda Cui PA-C: Patient is a 34 year old assigned female at presenting to the emergency department feeling generally unwell with body aches and coughing. Detailed physical exam and review of systems are deferred to the videogame tester. Labs, chest x-ray, and swabs ordered. Patient placed back in the waiting room pending room availability and results. Medical Decision Making Lab Data 07/08/25 16:09 07/08/25 16:09 Labs: Lab Results 07/08/25 Range/Units 16:09 WBC 15.4 H (4.8-10.8) X10*3/uL RBC 4.58 (4.20-5.50) X10*6/uL Hgb 13.0 (12.0-16.0) g/dl Hct 40.8 (37.0-47.0) % MCV 89.1 (80.0-98.0) fL MCH 28.4 (27.0-33.0) pg MCHC 31.9 (31.0-35.0) g/dl RDW 17.5 H (11.0-16.0) % Plt Count 171 (160-400) X10*3/uL MPV 11.2 (9.4-12.3) fL Immature Gran % (Auto) 0.7 H (0.0-0.4) % Neut % (Auto) 77.8 H (45-73) % Lymph % (Auto) 12.2 L (20-40) % Wilkinson % (Auto) 7.7 (2-11) % Eos % (Auto) 1.1 (0-4) % Baso % (Auto) 0.5 (0-2) % Lymph # (Auto) 1.9 (1.2-4.9) X10*3/uL Wilkinson # (Auto) 1.2 (0.1-1.2) X10*3/uL Eos # (Auto) 0.2 (0.0-0.4) X10*3/uL Baso # (Auto) 0.1 (0.0-0.2) X10*3/uL Abs Immat Gran (auto) 0.11 H (0.00-0.03) X10*3/uL Absolute Neuts (auto) 12.0 H (2.0-8.3) x10*3/uL Absolute Nucleated RBC 0.000 (0.0-0.012) X10*3/uL Nucleated RBC % (auto) 0.0 (0.0-0.2) /100WBC Sodium 140 (135-145) mmol/L Potassium 3.6 (3.3-5.1) mmol/L Chloride 105 (96-108) mmol/L Carbon Dioxide 27 (22-29) mmol/L Anion Gap 12 (12-20) BUN 8 L (9-16) mg/dL Creatinine 0.78 (0.5-1.4) mg/dL Estim Creat Clear Calc 133.7 Estimated GFR > 60 Random Glucose 118 H (60-115) mg/dL Calcium 8.9 (8.4-10.2) mg/dL Magnesium 2.0 (1.6-2.6) mg/dL Total Bilirubin 0.7 (0.0-1.0) mg/dL AST 15 (5-31) U/L ALT 18 (0-31) U/L Alkaline Phosphatase 86 (39-117) U/L Total Protein 8.0 (6.5-8.0) g/dL Albumin 4.5 (3.5-5.0) g/dL TSH 60.88 H (0.32-4.0) uIU/mL Free T4 0.54 L (0.71-1.85) ng/dL Beta HCG, Quant < 2 mIU/mL COVID-19 (JEANA) Negative (Negative) COVID-19 Clin Com See Note Influenza Type A (JENNIFER) Negative (Negative) Influenza Type B (JENNIFER) Negative (Negative) Influenza A & B Note See Note Discharge Plan Discharge Clinical Impression: Upper respiratory infection Patient Disposition: Home, Self-Care Instructions: Upper Respiratory Infection (ED) Prescriptions: New albuterol sulfate [Ventolin HFA] 90 mcg/actuation HFA aerosol inhaler 1 inh inhalation QID PRN (Reason: shortness of breath or wheezing) Qty: 6.7 0RF benzonatate 200 mg capsule 200 mg PO TID PRN (Reason: cough) Qty: 21 0RF No Action esomeprazole magnesium 40 mg capsule,delayed release(DR/EC) 40 mg PO DAILY Qty: 90 1RF mesalamine [Apriso] 0.375 gram capsule,extended release 24hr 1.5 g PO QAM Qty: 360 3RF levothyroxine [Synthroid] 50 mcg tablet 50 mcg PO DAILY Qty: 90 4RF Rx Instructions: Take 200 mcg daily along with 50 mcg daily tablet for a total of 250 mcg daily levothyroxine [Synthroid] 200 mcg tablet 200 mcg PO DAILY Qty: 90 4RF Rx Instructions: Take 200 mcg daily along with 50 mcg daily tablet for a total of 250 mcg daily cholecalciferol (vitamin D3) 50 mcg (2,000 unit) capsule 50 mcg PO DAILY Qty: 90 5RF cyanocobalamin (vitamin B-12) [Vitamin B-12] 1,000 mcg Tablet 1,000 mcg PO DAILY Qty: 90 6RF folic acid 1 mg Tablet 1 mg PO DAILY Qty: 90 6RF Asmanex HFA 100 mcg/actuation HFA aerosol inhaler 1 puff INHALATION BID zinc acetate 50 mg (zinc) capsule 50 mg PO DAILY albuterol sulfate 90 mcg/actuation HFA aerosol inhaler 1 inh inhalation QID PRN (Reason: shortness of breath or wheezing) Qty: 6.7 0RF montelukast [Singulair] 10 mg tablet 10 mg PO BEDTIME azelastine 205.5 mcg (0.15 %) spray,non-aerosol 1 spray intranasal BID Rx Instructions: administer into each nostril fluoxetine 40 mg capsule 80 mg PO DAILY fluticasone propionate [Flonase Allergy Relief] 50 mcg/actuation spray,suspension 2 spray intranasal DAILY Rx Instructions: administer into each nostril bupropion HCl [Wellbutrin SR] 100 mg tablet sustained-release 12 hr 100 mg PO BID ferrous sulfate 325 mg (65 mg iron) tablet 325 mg PO DAILY (DME) blood-glucose meter [FreeStyle Lite Meter] Kit See Rx Instructions .Route Rx Instructions: As directed (DME) FreeStyle Lite Strips Strip See Rx Instructions .Route Rx Instructions: As directed fluticasone propionate [Flovent HFA] 110 mcg/actuation HFA aerosol inhaler 1 puff inhalation BID Mirena 20 mcg/24 hours (8 yrs) 52 mg intrauterine device 1 device intrauterine ONCE Qty: 1 0RF Mirena 20 mcg/24 hours (8 yrs) 52 mg intrauterine device 20 mcg intrauterine DAILY Citrucel 500 mg tablet 500 mg PO DAILY Qty: 90 2RF bisacodyl [Dulcolax (bisacodyl)] 5 mg tablet,delayed release (DR/EC) 10 mg PO BEDTIME Qty: 180 4RF risperidone 2 mg tablet 2 mg PO BEDTIME Ozempic 2 mg/dose (8 mg/3 mL) pen injector 2 mg subcut QWEEK Linzess 145 mcg capsule 145 mcg PO DAILY Qty: 30 2RF ascorbic acid (vitamin C) 250 mg tablet 250 mg PO DAILY diphenhydramine HCl [Benadryl Allergy] 25 mg tablet 25 mg PO BEDTIME PRN Glucagon Emergency Kit (human) 1 mg recon soln 1 mg subcut Q20M PRN Rx Instructions: until target blood sugar attained clotrimazole 1 % cream 1 appl topical BID emollient combination no.114 Cream topical (DME) blood pressure monitoring machine 0 .ROUTE .MEDSUPPLY polyethylene glycol 3350 17 gram powder in packet 17 g PO DAILY Artificial Tears(pvalch-povid) 0.5-0.6 % drops 1 drp ophthalmic (eye) BID-QID PRN (DME) lancets [FreeStyle Lancets] 28 gauge misc See Rx Instructions .ROUTE Rx Instructions: As directed witch danny-glycerin (hamamel) Pads, Medicated 1 pad topical BID-QID PRN sucralfate 1 gram tablet 1 g PO BEDTIME Qty: 30 4RF trazodone 50 mg tablet 50 mg PO BEDTIME (DME) FreeStyle Angi 2 Sensor Kit See Rx Instructions .ROUTE .MEDSUPPLY Qty: 1 Rx Instructions: As directed hydrocortisone [Anusol-HC] 2.5 % cream with perineal applicator 1 appl NV BID-QID PRN (Reason: Itching) Qty: 30 3RF Interventions: ED Discharge Assessment Last Done: 07/08/25 20:11 Discharge Date/Time: 07/08/25 20:11 Print Language: Samoan
[2025-07-08 16:18] LABS: MANUAL DIFF FLAG NO
[2025-07-08 16:20] LABS: Hematocrit 40.8 % (37.0-47.0); Hemoglobin 13.0 g/dl (12.0-16.0); Imm Gran Abs Auto 0.11 X10*3/uL (0.00-0.03); Imm Gran Pct Auto 0.7 % (0.0-0.4); Lymphocytes Absolute Auto 1.9 X10*3/uL (1.2-4.9); Mean Corpuscular HGB Conc 31.9 g/dl (31.0-35.0); Mean Corpuscular Hemoglobin 28.4 pg (27.0-33.0); Mean Corpuscular Volume 89.1 fL (80.0-98.0); NRBC Abs Auto 0.000 X10*3/uL (0.0-0.012); NRBC Pct Auto 0.0 /100WBC (0.0-0.2); Platelet Count 171 X10*3/uL (160-400); Red Blood Count 4.58 X10*6/uL (4.20-5.50); White Blood Count 15.4 X10*3/uL (4.8-10.8)
[2025-07-08 16:45] LABS: Alanine Aminotransferase 18 U/L (0-31); Albumin Level 4.5 g/dL (3.5-5.0); Alkaline Phosphatase 86 U/L (39-117); Anion Gap 12 (12-20); Aspartate Amino Transferase 15 U/L (5-31); Blood Urea Nitrogen 8 mg/dL (9-16); COVID-19 Test Negative (Negative); Calcium 8.9 mg/dL (8.4-10.2); Carbon Dioxide 27 mmol/L (22-29); Chloride 105 mmol/L (96-108); Creatinine Clr Calc Pharmacy 133.7; Estimated Glomerular Filt Rate > 60; IDNOW Serial# 55D5AD1C; IDNOW Serial# 58CA691E; Influenza B2 Negative (Negative); Magnesium 2.0 mg/dL (1.6-2.6); Potassium 3.6 mmol/L (3.3-5.1); Sodium 140 mmol/L (135-145); Total Protein 8.0 g/dL (6.5-8.0)
[2025-07-08 17:35] LABS: Free T4 (Free Thyroxine) 0.54 ng/dL (0.71-1.85)
[2025-07-08 18:28] VITALS: BP 110/52; PULSE 90; RESP 18; O2SAT 98
--- OUTSIDE RECORDS SUMMARY | 2025-07-08 18:51 | XMS_ITS | Encounter Summary ---
Author Organization [facility] Address [address] [place] [address] Phone Care Team Providers Care House Wrecker Name Role Phone Austyn Lane MD Primary Care Provider [phone] Encounter Details Date Type Department Care Team (Late st Contact Info) Description 09/26/2012 Documentation [facility] [place] Medicine [address] [place] [address] Family Medicine, Physician [address] [place], [place] [phone] Social History Tobacco Use Types Packs/Day Years [...] on filedocumented in this encounter Care Teams House Wrecker Relationship Specialty Start Date End Date Austyn Lane MD [address] [place] [address] TATE Webb [address] PCP - General 04/12/17 11/14/22 documented as of this encounter
--- OUTSIDE RECORDS SUMMARY | 2025-07-08 18:51 | XMS_ITS | Encounter Summary ---
Author Organization [employer] Address [address] [place] [address] [address] [place] [address] Care Team Providers Care Ssds Mk 2 Advanced Operator Name Role Phone Bernadine Ramos Primary Care Provider [phone] Reason for Visit * Reason Onset Date Comments FYI 03/22/2023 Encounter Details Date Type Department Care Team ([facility] st Contact Info) Description 03/22/2023 Telephone [facility] [address] [place] [address] Bernadine Ramos ANP [address] [place] [address] FYI Social History Tobacco Use Types Packs/Day [...] - 03/22/2023 2:39 PM EDT Tc from [place] with [facility] stating will be renewing pt care of plan on March 27 will be seeing pt 5 x a week for medication. documented in this encounter Plan of Treatment Upcoming Encounters Date Type Department Care Team (Late st Contact Info) Description 08/20/2025 2:15 PM EST Office Visit [facility] [address] [place] [address] Bernadine Ramos ANP [address] [place] [address] documented as of this encounter Visit Diagnoses Not on filedocumented in this encounter Additional Health Concerns Assessment Noted Time PHQ-9 Depression Total Score: 0 03/19/20 23 2:00 PM EDT documented as of this encounter Care Teams Ssds Mk 2 Advanced Operator Relationship Specialty Start Date End Date Bernadine Ramos ANP [address] [place] [address] PCP - General Family Medicine 02/16/20 [facility] 07/11/15 documented as of this encounter
--- OUTSIDE RECORDS SUMMARY | 2025-07-08 18:51 | XMS_ITS | Encounter Summary ---
Author Organization [facility] Address [address] [place] [address] Phone Care Team Providers Care Construction Job Titles Name Role Phone Austyn Lane MD Primary Care Provider [phone] Encounter Details Date Type Department Care Team (Late st Contact Info) Description 12/21/2011 Documentation [facility] [place] Family Medicine [address] [place] [address] Family Medicine, Physician [address] [place], [place] [phone] Social History Tobacco Use Types Packs/Day Years [...] on filedocumented in this encounter Care Teams Construction Job Titles Relationship Specialty Start Date End Date Austyn Lane MD [address] [place] [address] TATE Webb [address] PCP - General 04/12/17 11/14/22 documented as of this encounter
--- OUTSIDE RECORDS SUMMARY | 2025-07-08 18:51 | XMS_ITS | Encounter Summary ---
Author Organization [employer] Address [address] [place] [address] [address] [place] [address] Care Team Providers Care Sugar Drier Name Role Phone Bernadine Ramos Primary Care Provider [phone] Encounter Details Date Type Department Care Team (Late st Contact Info) Description 05/29/2023 Orders Only [facility] [address] [place] [address] [phone] Provider, MD Estephanie Social History Tobacco Use [...] Description 08/20/2025 2:15 PM EST Office Visit [facility] [address] [place] [address] [phone] Bernadine Ramos ANP [address] [place], [place] [phone] documented as of this encounter Procedures Procedure [...] documented as of this encounter Care Teams Sugar Drier Relationship Specialty Start Date End Date Bernadine Ramos ANP [address] [place] [address] PCP - General Family Medicine 02/16/20 [facility] 07/11/15 documented as of this encounter
--- OUTSIDE RECORDS SUMMARY | 2025-07-08 18:51 | XMS_ITS | Encounter Summary ---
Author Organization [employer] Address [address] [place] [address] Care Team Providers Care Spring Floor Service Worker Name Role Phone Bernadine Ramos Primary Care Provider [phone] Reason for Visit * Reason Comments Med Refill Encounter Details Date Type Department Care Team (Late st Contact Info) Description 03/21/[address] [facility] [address] [place] [address] [phone] Bernadine Ramos ANP [address] [place] [address] [phone] Heartburn Social History Tobacco Use Types Packs/Day [...] Description 08/20/2025 2:15 PM EST Office Visit [facility] [address] [place] [address] [phone] Bernadine Ramos ANP [address] [place], [place] [phone] documented as of this encounter Visit Diagnoses Diagnosis Heartburn documented in this encounter Additional Health Concerns Assessment Noted Time PHQ-9 Depression Total Score: 0 03/19/20 23 2:00 PM EDT documented as of this encounter Care Teams Spring Floor Service Worker Relationship Specialty Start Date End Date Bernadine Ramos ANP [address] [place] [address] PCP - General Family Medicine 02/16/20 [facility] 07/11/15 documented as of this encounter
--- OUTSIDE RECORDS SUMMARY | 2025-07-08 18:51 | XMS_ITS | Encounter Summary ---
Author Organization [facility] Address [address] [place] [address] Phone Care Team Providers Care Tag Press Operator Name Role Phone Austyn Lane MD Primary Care Provider [phone] Encounter Details Date Type Department Care Team (Late st Contact Info) Description 12/01/2012 Documentation [facility] [place] Family Medicine [address] [place] [address] Family Medicine, Physician [address] [place], [place] [phone] Social History Tobacco Use Types Packs/Day Years [...] on filedocumented in this encounter Care Teams Tag Press Operator Relationship Specialty Start Date End Date Austyn Lane MD [address] [place] [address] TATE Webb [address] PCP - General 04/12/17 11/14/22 documented as of this encounter
--- OUTSIDE RECORDS SUMMARY | 2025-07-08 18:51 | XMS_ITS | Encounter Summary ---
Author Organization [facility] Address [address] [place] [address] Phone Care Team Providers Care Rectifying Attendant Name Role Phone Austyn Lane MD Primary Care Provider [phone] Encounter Details Date Type Department Care Team (Late st Contact Info) Description 09/29/2012 Documentation [facility] [place] Family Medicine [address] [place] [address] Family Medicine, Physician [address] [place], [place] [phone] Social History Tobacco Use Types Packs/Day Years [...] on filedocumented in this encounter Care Teams Rectifying Attendant Relationship Specialty Start Date End Date Austyn Lane MD [address] [place] [address] TATE Webb [address] PCP - General 04/12/17 11/14/22 documented as of this encounter
--- OUTSIDE RECORDS SUMMARY | 2025-07-08 18:52 | XMS_ITS | Encounter Summary ---
Author Organization [facility] Address [address] [place] [address] Phone Care Team Providers Care Potline Monitor Name Role Phone Austyn Lane MD Primary Care Provider Encounter Details Date Type Department Care Team (Late st Contact Info) Description 04/06/2013 Documentation [facility] [place] Family Medicine [address] [place] [address] Family Medicine, Physician [address] [place], [place] [phone] Social History Tobacco Use Types Packs/Day Years [...] on filedocumented in this encounter Care Teams Potline Monitor Relationship Specialty Start Date End Date Austyn Lane MD [address] [place] [address] TATE Webb [address] PCP - General 04/12/17 11/14/22 documented as of this encounter
--- OUTSIDE RECORDS SUMMARY | 2025-07-08 18:52 | XMS_ITS | Clinical Summary ---
Author Organization [employer] Address [address] [facility] 7t [place] [address] Care Team Providers Care Underwriting Manager Name Role Phone Bernadine Ramos Primary Care Provider [phone] Allergies No known active allergies Medications albuterol [...] 4-6 times per day 11/25/19 19 Active cholecalciferol (Vitamin D-3) 50 MCG (1999 [...] tablet 11/10/19 23 Active Continuous Blood Gluc Computer Systems Software Architect (FreeStyle Angi 2 [place]) deviceIndicatio ns:Type 2 diabetes mellitus with hypoglycemia without coma, without long-term current use of insulin (HCC),Hypoglyce grace Use w/ sensor 1 each 03/19/20 23 Active Blood Pressure kitIndications: Elevated blood pressure reading 1 kit in the morning. 1 kit 06/26/20 23 Active Mometasone Furoate (Asmanex HFA) 100 MCG/ACT [...] daily. 60 g 1 02/13/20 24 Active witch danny-glycerin (Tucks) pad Use as needed up to 4x/d 100 each 11 06/18/20 24 Active Continuous Glucose Sensor (FreeStyle Angi 2 Sensor) miscIndications :Type 2 diabetes mellitus with hypoglycemia without coma, without long-term current use of insulin (HCC),Hypoglyce grace USE 1 SENSOR EVERY 14 DAYS. 2 each 11 07/10/20 24 Active fluticasone (Flonase) 50 MCG/ACT [...] TABLET 90 tablet 3 10/15/19 25 Active Emollient (Eucerin Advanced Repair) creamIndication s:Callus,Dry skin Apply twice daily to clean, dry feet 454 g 11 11/04/19 25 Active ferrous sulfate 325 (65 Fe) MG tabletIndicatio ns:Iron deficiency anemia, unspecified iron deficiency anemia type TAKE 1 TABLET BY MOUTH EVERY DAY WITH VITAMIN C. DO NOT TAKE WITH DAIRY PRODUCTS OR THYROID MEDICINE 90 tablet 3 02/02/20 25 Active Continuous Glucose Sensor (FreeStyle Angi 2 Plus Sensor) miscIndications :Type 2 diabetes mellitus with other specified complication, without long-term current use of insulin ([facility]) 1 each every 14 (fourteen) days. 2 each 02/03/20 25 Active esomeprazole (NexIUM) [address] capsule Take 40 mg by mouth Once per day. Active famotidine (Pepcid) 20 MG tablet Take 20 mg by mouth at bedtime. Active Apriso 0.375 g 24 hr capsule Take 1.5 g by mouth in the morning. 12/12/19 25 Active montelukast (Singulair) 10 MG tablet TAKE 1 TABLET BY MOUTH EVERY DAY IN THE EVENING 90 tablet 3 03/26/20 25 Active Ozempic, 2 MG/DOSE, 8 MG/3ML solution pen-injectorInd ications:Type 2 diabetes mellitus with other specified complication, without long-term current use of insulin (HCC) INJECT 0.75 ML (2 MG) UNDER THE SKIN 1 (ONE) TIME PER WEEK. 3 mL 2 07/08/20 25 Active Ozempic, 2 MG/DOSE, 8 MG/3ML solution pen-injectorInd ications:Type 2 diabetes mellitus with other specified complication, without long-term current use of insulin (HCC) INJECT 0.75 ML (2 MG) UNDER THE SKIN 1 (ONE) TIME PER WEEK. 3 mL 2 04/14/20 25 2024 Discontinued Active Problems Problem Noted Date Diagnosed Date Type 2 diabetes mellitus 03/19/2023 Disorder of thyroid 10/19/2022 Elevated LFTs 10/19/2022 Iron deficiency anemia due to chronic blood loss 07/11/2022 Abnormally low peak expiratory flow rate 018 Tired 06/18/2018 Acanthosis nigricans 06/12/2018 Attention deficit hyperactivity disorder 018 History of thyroidectomy 06/12/2018 Obstructive sleep apnea syndrome 06/12/2018 Rheumatoid arthritis (CMS/HCC) 06/12/2018 Varicose veins of lower extremity 06/12/2018 Autoimmune thyroiditis 06/12/2018 Acquired hypothyroidism 04/14/2018 Anxiety 04/14/2018 Menstrual bleeding problem 04/14/2018 Encounters Date Type Department Care Team Description 07/07/2025 Refill [facility] [address] [place] [phone] Berandine Ramos ANP Type 2 diabetes mellitus with other specified complication, without long-term current use of insulin ([facility]) 06/18/2025 Orders Only GENERIC EXTERNAL DATA DEPARTMENT Provider, Generic External Data 06/04/[address] [address] Bernadine Ramos ANP 05/27/2025 2:30 PM EDT Office Visit [address] [address] Bernadine Ramos ANP Cyst of skin of left breast (Primary Dx); Type 2 diabetes mellitus with other specified complication, without long-term current use of insulin ([facility]); Encounter for immunization 05/27/2025 Travel 05/25/[address] [address] Bernadine Ramos ANP chart prep 05/05/[address] [address] Yanelis Norman RN 04/13/2025 Refill [facility] [address] [place] [phone] Bernadine Ramos ANP Type 2 diabetes mellitus with other specified complication, without long-term current use of insulin (CMS/[facility]) from Last 3 Months Immunizations Immunization Administration [...] MMR 10/08/1996,10/24/1993 Meningococcal MCV4P [id number]-135 09/17/2006 Novel Ihdavfgck-[id number], all formulations 06/21/2009 Pneumococcal Conjugate PCV 20 [...] Description 08/20/2025 2:15 PM EST Office Visit [facility] [address] [place] [address] Bernadine Ramos, ANP [address] [place], [place] [phone] Health Maintenance Due Date Last Done Comments [...] Procedure Name Priority Date/Time Associated Diagnosis Comments VITAMIN D 25-OH (D2 AND D3) Routine 06/18/2025 2:14 PM EDT TISSUE TRANSGLUTAMINASE AB, IGA Routine 06/18/2025 2:14 PM EDT TISSUE TRANSGLUTAMINASE AB, IGG Routine 06/18/2025 2:14 PM EDT VITAMIN B12/FOLATE, SERUM PANEL Routine 06/18/2025 2:14 PM EDT POCT GLYCATED HEMOGLOBIN, TOTAL Routine 05/27/2025 2:48 PM EDT Type 2 diabetes mellitus with other specified complication, without long-term current use of insulin (CMS/HCC) POCT GLUCOSE Routine 05/27/2025 2:46 PM EDT Type 2 diabetes mellitus with other specified complication, without long-term current use of insulin (CMS/HCC) LIPID PANEL, STANDARD Routine 11/11/2024 10:49 AM EDT Type 2 diabetes mellitus with hypoglycemia without coma, without long-term current use of insulin (CMS/HCC) ZZZ HISTORICAL HPV E6/E7 RFLX BECCA 16 18/45 Routine 02/07/2021 3:19 PM EDT HM PAP/HPV Routine 02/07/2021 from Last 3 Months or Most Recently Relevant to Health Maintenance Results * (ABNORMAL) VITAMIN D 25-OH (D2 AND D3) (06/18/2025 2:14 PM EDT) Vitamin D, 25-OH, D2 <4 ng/mL [facility] Comment:This test was develo ped and its analytical performancecharacteristics have been determined by [employer] [place], [place]. It hasnot been cleared or approved by the U.S. Food and DrugAdministration. This assay has been validated pursuantto the CLIA regulations and is used for clinicalpurposes.THIS TEST WAS PERFORMED AT:[employer] [id number] [place] [address]TRTZROINOEL REYNOLDS MD,PHD Vitamin D, 25-OH, D3 14 ng/mL [facility] Comment:This test was develo ped and its analytical performancecharacteristics have been determined by [employer] [place], [place]. It hasnot been cleared or approved by the U.S. Food and DrugAdministration. This assay has been validated pursuantto the CLIA regulations and is used for clinicalpurposes. Vitamin D, 25-OH, Total 14(A) 30 - 100 ng/mL [facility] Comment:Vitamin D, 25-Hydrox y reports concentrations of twocommon forms, 25-OHD2 and 25-OHD3. 25-OHD3 indicatesboth endogenous production and supplementation.25-OHD2 is an indicator of exogenous sources such asdiet or supplementation. Therapy is based onmeasurement of Total 25-OHD, with levels <20 ng/mLindicative of Vitamin D deficiency, while levelsbetween 20 ng/mL and 30 ng/mL suggest insufficiency.Optimal levels are > or = 30 ng/mL.For additional information, please refer tohttp://education.Mertado/faq/PWP213(This link is being provided for informational/educational purposes only.) 06/18/2025 2:14 PM EDT 06/18/2025 2:14 PM EDT Generic External Data Provider LAB BLOOD ORDERAB LES Final Result Performing Organization Address [facility] Co de Phone Number [facility] [address] [place] [phone] * Vitamin B12 (Cobalamin) and Folate Panel, Serum (06/18/2025 2:14 PM EDT) Vitamin B12 231 200 - 900 pg/mL [facility] Comment:NORMAL 200-900 PG/M L INDETERMINATE 160-199 PG/ML DEFICIENT < 160 PG/ML Folate 9.4 > or = 4.0 ng/mL [facility] Comment:Reference Values:> o r = 4.0 ng/mL< 4.0 ng/mL suggests folate deficiency Methotrexate, aminopterin and folinic acid(leucovorin) are chemotherapeutic agents whose molecularstructures are similar to folate; therefore, the Architectfolate assay cannot be used for patients using these drugs. 06/18/2025 2:14 PM EDT 06/18/2025 2:14 PM EDT Generic External Data Provider LAB BLOOD ORDERAB LES Final Result Performing Organization Address [facility] de Phone Number [facility] [address] [place] [phone] * Tissue Transglutaminase (tTG) Antibody (IgG) (06/18/2025 2:14 PM EDT) Tissue Transglutaminase Antibody IgG <1.0 U/mL [facility] Comment:Value Interpretation ----- <15.0 Antibody not detected> or = 15.0 Antibody detectedTHIS TEST WAS PERFORMED AT:[employer] [place] [id number] PEREZ MD 06/18/2025 2:14 PM EDT 06/18/2025 2:14 PM EDT Generic External Data Provider LAB BLOOD ORDERAB LES Final Result Performing Organization Address [facility] Co de Phone Number [facility] [address] [place] [phone] * Tissue Transglutaminase Antibody, IgA (06/18/2025 2:14 PM EDT) Transglutaminase IgA <1.0 U/mL [facility] Comment:Value Interpretation ----- <15.0 Antibody not detected> or = 15.0 Antibody detectedTHIS TEST WAS PERFORMED AT:[employer] [place] [id number] PEREZ MD 06/18/2025 2:14 PM EDT 06/18/2025 2:14 PM EDT [employer] External Data Provider LAB BLOOD ORDERAB LES Final Result Performing Organization Address [facility] Co de Phone Number [facility] [address] [place] [phone] * POCT Hgb A1c (05/27/2025 2:48 PM EDT) Hemoglobin A1C 5.7 4.0 - 5.7 % QC Media Lot # [id number] Lot# Expiration Date , Blood 05/27/2025 2:48 PM EDT us Bernadine Ramos ANP POINT OF CARE TEST ENTER/EDIT OR DERABLES Final Result * POCT Glucose (05/27/2025 2:46 PM EDT) Glucose Blood, POC 103 60 - 200 mg/dL QC Media Lot # [id number] Lot# Expiration Date , Blood Capillary blood specimen / Unknown 05/27/2025 2:46 PM EDT Bernadine Ramos ANP POINT OF CARE TEST ENTER/EDIT OR DERABLES Final Result * (ABNORMAL) Lipid Panel, Standard (11/11/2024 10:49 AM EDT) Triglycerides 182(H) <150 mg/dL [facility] Comment:Desirable Triglyceri de: less than 150 mg/dLBorderline High Triglyceride 150-199 mg/dLHigh Triglyceride: 200-499 mg/dLVery High Triglyceride: greater than or equal to 5OO mg/dL Cholesterol 192 <200 mg/dL [facility] Comment:Desirable Cholestero l: less than 200 mg/dLBorderline High Cholesterol: 200-239 mg/dLHigh Cholesterol: greater than 239 mg/dL LDL Cholesterol Calculated 125(H) <100 mg/dL [facility] Comment:Desirable LDL: less than 100 mg/dLNear Optimal/Above Optimal LDL: 110- 129 mg/dLBorderline High LDL: 130-159 mg/dLHigh LDL: 160-189 mg/dLVery High LDL: greater than or equal to 190 mg/dL HDL Cholesterol 31(L) >40 mg/dL [facility] Comment:Desirable HDL: great er than 40 mg/dL Note: This HDL assay may give artificially low results in patients with liver disease. Blood Venous blood specimen / Unknown 11/11/2024 10:49 AM EDT 11/11/2024 10:49 AM EDT us Bernadine Ramos ANP LAB BLOOD ORDERABLES Final Resul t [facility] [address] [place] [address] [phone] * HPV E6/E7 RFLX BECCA 16 18/45 (02/07/2021 3:19 PM EDT) HPV 16 RNA [facility] HPV 18/45 RNA [facility] HPV E6 E7 ADD [facility] HPV mRNA E6/E7 rflx Not Detected Not Detected [facility] Comment: Methodology: Screen Tacker-Mediated Amplification This assay detects E6/E7 viral messenger RNA (mRNA) from 14 high-risk HPV types (16,18,31,33,35,39,45,51,52,56,58,59,66,68). The analytical performance characteristics of this assay have been determined by [employer]. The modifications have not been cleared or approved by the FDA. This assay has been validated pursuant to the CLIA regulations and is used for clinical purposes. For additional information, please refer to http://education.DailyWorth/faq/ZPR391u4 (This link if provided for information/ educational purposes only.) THIS TEST WAS PERFORMED AT: [employer] [address] [place] [address] [address]LO[address],[place] [address] KARIE PEREZ MD 02/07/2021 3:19 PM EDT Giorgio Mock MD HISTORICAL/NON ORDERABLE LABS Fi nal Result [facility] [address] * Hm Pap Smear (02/07/2021) Historical Provider HEALTH MAINTENANCE Final Result from Last 3 Months or Most Recently Relevant to Health Maintenance Insurance [facility] C3 Care Teams Underwriting Manager Relationship Specialty Start Date End Date Bernadine Ramos ANP [address] [place] [phone] PCP - General Family Medicine 02/16/20 [facility] 07/11/15
--- OUTSIDE RECORDS SUMMARY | 2025-07-08 18:52 | XMS_ITS | Clinical Summary ---
Author Organization [facility] Address [address] [place] [phone] Phone Care Team Providers Care Media Consultant Name Role Phone Unavailable Primary Care Provider [...] complete this topic Procedures * Due to [place] state law, this organization might not be sharing sensitive test results. Procedure Name Priority Date/Time Associated Diagnosis Comments CHLAMYDIA AND GONORRHEA, AMPLIFIED Routine 08/08/2010 1:32 PM EST from Last 3 Months or Most Recently Relevant to Health Maintenance Results * Due to [place] state law, this organization might not be sharing sensitive test results. * Chlamydia and Gonorrhoea, Amplified (08/08/2010 1:32 PM EST) URINE CHLAMYDIA AMP PROBE NEGATIVE [facility] Comment: NO CHLAMYDIA TRACHOMATIS RNA DETECTED IN THIS PATIENT'S SAMPLE. (REFERENCE RANGE/NORMAL VALUE: NOT DETECTED) URINE GC AMP PROBE NEGATIVE [facility] Comment: NO NEISSERIA GONORRHOEAE RNA DETECTED IN THIS PATIENT'S SAMPLE. (REFERENCE RANGE/NORMAL VALUE: NOT DETECTED) NOTE: THIS TEST USES MACHINE FORMER MEDIATED AMPLIFICATION METHOD TO DETECT rRNA FROM [...] OTHER AGENTS. 08/08/2010 1:32 PM EST Narrative [facility] - 08/08/2010 1:32 PM EST URINE CHLAMYDIA GC AMP PROBE Veronica Lux NP LAB MICROBIOLOGY - GENERAL OR DERABLES Final Result [facility] [address] [place] [phone], [place] from Last 3 Months or Most Recently Relevant to Health Maintenance
--- OUTSIDE RECORDS SUMMARY | 2025-07-08 18:52 | XMS_ITS | Encounter Summary ---
Author Organization [employer] Address [address] [place] [address] [address] [place] [address] Care Team Providers Care Picking Tech Name Role Phone Bernadine Ramos Primary Care Provider [phone] Reason for Visit * Reason Comments Med Refill Encounter Details Date Type Department Care Team (Late st Contact Info) Description 07/07/2025 Refill [facility] [address] [place], [place] [phone] Bernadine Ramos ANP [address] [place], [place] [phone] Type 2 diabetes mellitus with other specified complication, without long-term current use of insulin (HCC) Social History Tobacco Use Types Packs/Day Years [...] Description 08/20/2025 2:15 PM EST Office Visit [facility] [address] [place] [phone] Bernadine Ramos ANP [address] [place] [address] documented as of this encounter Visit Diagnoses Diagnosis Type 2 diabetes mellitus with other specified complication, without long-term current use of insulin (HCC) documented in this encounter Additional Health Concerns Assessment Noted Time PHQ-9 Depression Total Score: 8 06/23/20 24 10:48 AM EDT documented as of this encounter Care Teams Picking Tech Relationship Specialty Start Date End Date Bernadine Ramos ANP [address] [place] [phone] PCP - General Family Medicine 02/16/20 [facility] 07/11/15 documented as of this encounter
--- OUTSIDE RECORDS SUMMARY | 2025-07-08 18:52 | XMS_ITS | Clinical Summary ---
Author Organization [facility] Address [address] [place] [address] Phone Care Team Providers Care Cutting And Creasing Press Operator Name Role Phone RichardBernadine Irina KING Primary Care Provider [phone] Allergies No known active allergies Medications ascorbic [...] topic Insurance MEDICAID - [place] Care Teams Cutting And Creasing Press Operator Relationship Specialty Start Date End Date Bernadine Ramos NP [address] [place] [phone] PCP - General 10/02/23
--- OUTSIDE RECORDS SUMMARY | 2025-07-08 18:52 | XMS_ITS | Encounter Summary ---
Author Organization [facility] Address [address] [place] [address] Phone Care Team Providers Care Maintenance Person Name Role Phone Austyn Lane MD Primary Care Provider [phone] Encounter Details Date Type Department Care Team (Late st Contact Info) Description 11/10/2009 Documentation [facility] [address] [place] [address] Family Medicine, Physician [address] [place], [place] [phone] Social History Tobacco Use Types Packs/Day Years [...] on filedocumented in this encounter Care Teams Maintenance Person Relationship Specialty Start Date End Date Austyn Lane MD [address] [place] [address] TATE Webb [address] PCP - General 04/12/17 11/14/22 documented as of this encounter
--- OUTSIDE RECORDS SUMMARY | 2025-07-08 18:52 | XMS_ITS | Encounter Summary ---
Author Organization [facility] Address [address] [place] [address] Phone Care Team Providers Care Sound Truck Operator Name Role Phone Austyn Lane MD Primary Care Provider [phone] Encounter Details Date Type Department Care Team (Late st Contact Info) Description 04/18/2017 Conversion Encounter [facility] [address] [facility] [place] [address] Social History Tobacco Use Types Packs/Day Years [...] on filedocumented in this encounter Care Teams Sound Truck Operator Relationship Specialty Start Date End Date Austyn Lane MD [address] [facility] [place] [address] PCP - General 04/12/17 11/14/22 documented as of this encounter
--- OUTSIDE RECORDS SUMMARY | 2025-07-08 18:52 | XMS_ITS | Encounter Summary ---
Author Organization [employer] Address [address] [facility] 7t [place] [address] Care Team Providers Care Oliver Filter Operator Name Role Phone Bernadine Ramos Primary Care Provider Reason for Visit * Reason Onset Date Comments Medication Question 11/27/2024 Encounter Details Date Type Department Care Team ([facility] st Contact Info) Description 11/27/2024 Telephone [facility] [address] [place] [address] Bernadine Ramos ANP [address] [place] [address] Medication Question Social History Tobacco Use Types [...] covered by the Insurance. Contact pt at [phone] documented in this encounter Plan of Treatment Upcoming Encounters Date Type Department Care Team (Late st Contact Info) Description 08/20/2025 2:15 PM EST Office Visit [facility] [address] [place] [address] Bernadine Ramos ANP [address] [place] [address] documented as of this encounter Visit Diagnoses Not on filedocumented in this encounter Additional Health Concerns Assessment Noted Time PHQ-9 Depression Total Score: 8 06/23/20 24 10:48 AM EDT documented as of this encounter Care Teams Oliver Filter Operator Relationship Specialty Start Date End Date Bernadine Ramos ANP [address] [place] [address] PCP - General Family Medicine 02/16/20 [facility] 07/11/15 documented as of this encounter
[2025-07-08 20:11] VITALS: BP 110/52; PULSE 90; RESP 18; TEMP -17.7; TEMP 0; O2SAT 98
== END 2025-07-08 20:11 | disposition home or self-care (01) ==
PROVIDERS: Physician Assistant Medical; Emergency Provider Student in an Organized Health Care Education/Training Program
DX: J06.9 Acute upper respiratory infection, unspecified (principal); J02.9 Acute pharyngitis, unspecified; R06.02 Shortness of breath; E03.9 Hypothyroidism, unspecified; Z79.899 Other long term (current) drug therapy
CPT/HCPCS: 71046; 80053; 83735; 84439; 84443; 84702; 85025; 87502; 87635; 99283; 99284

== ENCOUNTER → 2025-07-08 15:39 | Outpatient (BNV) | payer MEDICAID, SELFPAY | PROVIDERS: Visit Provider Radiology Diagnostic Radiology | DX: R05.9 Cough, unspecified (principal) | CPT/HCPCS: 71046 ==

== ENCOUNTER 2025-07-14 13:49 | Outpatient (REF) | payer MEDICAID, SELFPAY ==
--- OUTSIDE RECORDS SUMMARY | 2025-05-25 08:00 | XMS_ITS | Continuity of Care Document ---
Author Organization [facility] Address [address] [place] [address] Phone Care Team Providers Care Stick Feeder Name Role Phone Terry MAURICIO, IRINA, KVNG, Pillo Unavailable U navailable Allergies, Adverse Reactions, Alerts Substance Reaction Status Criticality No Known Allergies Active No Inform ation Procedures Procedure Date Duplex Scan-extrem Veins; Uni/ CT & [place] S Inj Scleros Solut; Mx Veins 1- CT & [place] S Ultrason Guidan Needle Bx-rad- CT & MA S Ultrason Guidan Needle Bx-rad- CT & [place] S Inj Sclerosing Solution; Sngl- CT & [place] S Duplex Scan-extrem Veins; Uni/ CT & [place] S Endovenous Laser, 1st Vein- CT & [place] Offic/outpt E&m Estab 5 Min Trial- Telem edicine CT & [place] Office/Oupt E&M New Pt 45 Mins- CT & [place] Duplex Scan-extrem Veins; Comp- CT & [place] Advance Directives Directive Yes / No Effective Date File Name No Information Encounters Encounter Description Practice Location Reason(s) For Visit Diagnoses Date Provider Providers Copied on Encounter [facility], [address] [place] [address] [address] [address], [id number], [place] tel:[phone] [facility] Encounter for follow-up examination after completed treatment for conditions other than malignant neoplasmPain in left leg 2 5 Terry MAURICIO RVT, KVNG Ferro. [address], [address], [facility], [place], [id number] , [place]. tel:[phone] Referring Provider: Bernadine Ramos NP, [address] [place] [address] [address], [place], [address]. tel:[phone] [facility], [address] [place] [address] [facility] [address], [id number], [place] [phone] [facility] [place] Varicose veins of right lower extremity with other complications Sep-2 5 Terry MAURICIO RVT, KVNG Ferro. [address] [place] [address], [address] [facility], [facility], [place], [id number] , [place]. tel:[phone] Referring Provider: Bernadine Ramos NP, [address] [place] [address] [address], [place], [address]. tel:[phone] [facility], [address] [place] [address] [facility] [address], [place], [id number], [place] tel:[phone] [place] Varicose veins of left lower extremity with other complications Sep- 5 Nikko Hinojosa . [address] [place] [address], [facility] [address], [facility], [place], [id number] , [place]. tel:[phone] Referring Provider: Bernadine Ramos NP, [address] [place] [address] [address], [place], [address]. tel:[phone] [facility], [address] [place] [address] [facility] [address], [place], [id number], [place] [phone] [place] Encounter for follow-up examination after completed treatment for conditions other than malignant neoplasmPain in left leg Sep- 5 Terry MAURICIO RVT, KVNG Ferro. [address], [address], [facility] [place], [id number] , [place]. tel:[phone] Referring Provider: Bernadine Ramos NP, [address] [place] [address] [address], [place], [address]. tel:[phone] [facility], [address] [place] [address] [address] [place], [id number], [place] tel:[phone] [place] Chronic venous hypertension (idiopathic) with inflammation of left lower extremity 5 Terry MAURICIO RVT, KVNG Ferro. [address], [facility] [address], [facility] [place], [id number] , [place]. tel:[phone] Referring Provider: Bernadine Ramos NP, [address] [place] [address] [address], [place], [address]. tel:[phone] Offic/outpt E&m Estab 5 Min Trial- Telemedicine [place] & [place] [facility], [address] [place] [address] [address], [id number], [place] tel:[phone] [place] Varicose veins of right lower extremity with inflammationVa ricose veins of left lower extremity with inflammationTy pe 2 diabetes mellitus without complicationsD isorder of pigmentation, unspecified 5 Terry MAURICIO RVT, KVNG Ferro. [facility] [facility] [address] [address], [facility] [address], [facility] [place], [id number] , [place]. [phone] Referring Provider: Bernadine Ramos NP, [address] [place] [address] [address], [place], [address]. tel:[phone] Office/Oupt E&M New Pt 45 Mins- [place] & [place] [facility], [address] [place] [address] [address], [id number], [place] tel:[phone] [place] Chronic venous hypertension (idiopathic) with other complications of bilateral lower extremityType 2 diabetes mellitus without complicationsR estless legs syndrome 5 Terry MAURICIO RVT, KVNG Ferro. [address], [facility] [address], [facility] [place], [id number] , [place]. [phone] Referring Provider: Bernadine Ramos NP, [address] [place] [address] [address], [place], [address]. tel:[phone] [facility], [address] [place] [address] [address], [place], [id number], [place] tel:[phone] CV[place] Chronic venous hypertension (idiopathic) with other complications of bilateral lower extremity Terry MAURICIO, RVT, RPMARY Pillo. [address], [address], [place], [id number] , [place]. tel:[phone] Referring Provider: Bernadine Ramos DRAFTING DETAILER, [address] [facility] [address], [place], [address]. tel:[phone] Family History Family Member Type Diagnosis Age At Onset No Information Payers Payer name Insurance type Covered green party ID Authoriza tion(s) Medical Assistance TATE [id number] Social History Type Description Quantity Date Captured Comments Sex Female Smoking Status No Information Chief Complaint And Reason For Visit No Information Reason For Referral Reason For Referral No Information Plan Of Treatment Date Type Action Status Goal Diet education completed Referral Ordered: Weight management: Referral to physician timeframe: 3 Months (related to Body mass index (BMI) 45.0-49.9, adult) ordered History Of Present Illness Encounter Date Complaint History Of Prese nt Illness No Information Functional Status Date Functional Assessmen t No Information Instructions Date Instruction Additional Infor mation Compression stocking usage as conservative measure Related to Varicose veins of right lower extremity with inflammation Pre and post instruc tions reviewed and provided Related to Varicose veins of right lower extremity with inflammation Giving Encouragement to exercise Related to Body [...]
--- NOTE | ~2025-07-14 | MM_ITS ---
EXAMINATION: MM DIAGNOSTIC DIGITAL BREAST TOMOSYNTHESIS, BILATERAL Left Limited ultrasound. CLINICAL INFORMATION: Elizabeth female superficial left breast palpable lump for one month. When the patient squeezes the superficial area plus comes out. COMPARISON: Mammography: Comparison is made with relevant prior exams. TECHNIQUE: Digital breast mammography with tomosynthesis is performed in both the craniocaudal and mediolateral oblique views along with computer-aided detection (CAD). FINDINGS: There are scattered areas of fibroglandular density. Right: There are no significant masses, abnormal calcifications, or other abnormalities. Left: BB marker in the lower central breast middle to posterior depth with a faint underlying superficial focal asymmetry. No suspicious calcifications or other abnormal findings. Targeted color Doppler ultrasound scanning in the left breast area of patient's palpable lump lower outer quadrant 5:00 14 cm from nipple demonstrates a intradermal hypoechoic oval solid mass consistent with a benign epidermal inclusion cyst/sebaceous cyst measuring 3 x 2 x 4 mm.. Results are provided to the patient at time of visit by the technologist. MM/MM tomosynthesis diagnostic BI IMPRESSION: Right: Negative. Left: Benign dermal sebaceous cyst/epidermal inclusion cyst. Recommend clinical evaluation and follow-up. ASSESSMENT: BI-RADS Category 2: Benign RECOMMENDATION: Recommend clinical evaluation and followup Electronically signed by: Yudi Ceballos DO 07/14/2025 03:[address] [facility]
--- OUTSIDE RECORDS SUMMARY | 2025-07-14 17:02 | XMS_ITS | Encounter Summary ---
Author Organization [employer] Address [address] [place] [address] [address] [place] [address] Care Team Providers Care Stone Driller Name Role Phone Bernadine Ramos Primary Care Provider [phone] Encounter Details Date Type Department Care Team (Late st Contact Info) Description 05/29/2023 Orders Only [facility] [address] [place] [address] [phone] Provider, MD Estephanie Social History Tobacco Use [...] EST Office Visit [facility] [address] [place] [address] [phone] Bernadine Ramos ANP [address] [place], [place] [phone] documented as of this encounter Procedures Procedure [...] documented as of this encounter Care Teams Stone Driller Relationship Specialty Start Date End Date Bernadine Ramos ANP [address] [place] [address] PCP - General Family Medicine 02/16/20 [facility] 07/11/15 documented as of this encounter
--- OUTSIDE RECORDS SUMMARY | 2025-07-14 17:02 | XMS_ITS | Encounter Summary ---
Author Organization [facility] Address [address] [place] [phone] Phone Care Team Providers Care Freight Dispatcher Name Role Phone Austyn Lane MD Primary Care Provider [phone] Encounter Details Date Type Department Care Team (Late st Contact Info) Description 04/06/2013 Documentation [facility] Family Medicine [address] [place] [address] Family Medicine, Physician [address] [place], [place] [phone] Social History Tobacco Use Types Packs/Day Years [...] on filedocumented in this encounter Care Teams Freight Dispatcher Relationship Specialty Start Date End Date Austyn Lane MD [address] [place] [address] TATE Webb [address] PCP - General 04/12/17 11/14/22 documented as of this encounter
--- OUTSIDE RECORDS SUMMARY | 2025-07-14 17:02 | XMS_ITS | Encounter Summary ---
Author Organization [employer] Address [address] [facility] 7t [place] [address] Care Team Providers Care Esthetician Spa Name Role Phone Bernadine Ramos Primary Care Provider [phone] Reason for Visit * Reason Onset Date Comments Medication Question 11/27/2024 Encounter Details Date Type Department Care Team ([facility] st Contact Info) Description 11/27/2024 Telephone [facility] MEDICINE [address] [place] [address] Bernadine Ramos ANP [address] [place] [address] Medication Question Social History Tobacco Use Types [...] with others, in a hotel, in a long term, living outside on the street, on a [...] covered by the Insurance. Contact pt at [phone] documented in this encounter Plan of Treatment Upcoming Encounters Date Type Department Care Team (Late st Contact Info) Description 08/20/2025 2:15 PM EST Office Visit [facility] MEDICINE [address] [place] [address] Bernadine Ramos ANP [address] [place] [address] documented as of this encounter Visit Diagnoses Not on filedocumented in this encounter Additional Health Concerns Assessment Noted Time PHQ-9 Depression Total Score: 8 06/23/20 24 10:48 AM EDT documented as of this encounter Care Teams Esthetician Spa Relationship Specialty Start Date End Date Bernadine Ramos ANP [address] [place] [address] PCP - General Family Medicine 02/16/20 [facility] 07/11/15 documented as of this encounter
--- OUTSIDE RECORDS SUMMARY | 2025-07-14 17:02 | XMS_ITS | Encounter Summary ---
Author Organization [employer] Address [address] [place] [address] [place], [place] [address] Care Team Providers Care Accordion Maker Name Role Phone Bernadine Ramos Primary Care Provider [phone] Reason for Visit * Reason Comments Med Refill Encounter Details Date Type Department Care Team (Late st Contact Info) Description 03/21/2023 Refill [facility] MEDICINE [address] [place] [address] [phone] Bernadine Ramos ANP [address] [place] [address] [phone] Heartburn Social History Tobacco Use Types Packs/Day [...] Description 08/20/2025 2:15 PM EST Office Visit [facility] MEDICINE [address] [place] [address] [phone] Bernadine Ramos ANP [address] [place], [place] [phone] documented as of this encounter Visit Diagnoses Diagnosis Heartburn documented in this encounter Additional Health Concerns Assessment Noted Time PHQ-9 Depression Total Score: 0 03/19/20 23 2:00 PM EDT documented as of this encounter Care Teams Accordion Maker Relationship Specialty Start Date End Date Bernadine Ramos ANP [address] [place] [address] PCP - General Family Medicine 02/16/20 [facility] 07/11/15 documented as of this encounter
--- OUTSIDE RECORDS SUMMARY | 2025-07-14 17:02 | XMS_ITS | Encounter Summary ---
Author Organization [facility] Address [address] [place] [address] Phone Care Team Providers Care Nursing Home Assistant Administrator Name Role Phone Austyn Lane MD Primary Care Provider [phone] Encounter Details Date Type Department Care Team (Late st Contact Info) Description 09/26/2012 Documentation [facility] Family Medicine [address] [place] [address] Family Medicine, Physician [address] [place], [place] [phone] Social History Tobacco Use Types Packs/Day Years [...] on filedocumented in this encounter Care Teams Nursing Home Assistant Administrator Relationship Specialty Start Date End Date Austyn Lane MD [address] [place] [address] TATE Webb [address] PCP - General 04/12/17 11/14/22 documented as of this encounter
--- OUTSIDE RECORDS SUMMARY | 2025-07-14 17:02 | XMS_ITS | Encounter Summary ---
Author Organization [facility] Address [address] [place] [address] Phone Care Team Providers Care Asw Specialist Name Role Phone Austyn Lane MD Primary Care Provider [phone] Encounter Details Date Type Department Care Team (Late st Contact Info) Description 04/18/2017 Conversion Encounter [facility] [place] [address] [place] [place] [address] Social History Tobacco Use Types Packs/Day Years [...] on filedocumented in this encounter Care Teams Asw Specialist Relationship Specialty Start Date End Date Austyn Lane MD [address] [place] [address] PCP - General 04/12/17 11/14/22 documented as of this encounter
--- OUTSIDE RECORDS SUMMARY | 2025-07-14 17:02 | XMS_ITS | Clinical Summary ---
Author Organization [facility] Address [address] [place] [address] Phone Care Team Providers Care Extrusion Operator Name Role Phone RichardBernadine Irina KING Primary Care Provider [phone] Allergies No known active allergies Medications ascorbic [...] topic Insurance MEDICAID - [place] Care Teams Extrusion Operator Relationship Specialty Start Date End Date Bernadine Ramos NP [address] [place] [phone] PCP - General 10/02/23
--- OUTSIDE RECORDS SUMMARY | 2025-07-14 17:02 | XMS_ITS | Clinical Summary ---
Author Organization [facility] Address [address] [place] [address] Phone Care Team Providers Care College Administrator Name Role Phone Unavailable Primary Care Provider [...] PM EST) URINE CHLAMYDIA AMP PROBE NEGATIVE [facility] Comment: NO CHLAMYDIA TRACHOMATIS RNA DETECTED IN THIS PATIENT'S SAMPLE. (REFERENCE RANGE/NORMAL VALUE: NOT DETECTED) URINE GC AMP PROBE NEGATIVE [facility] Comment: NO NEISSERIA GONORRHOEAE RNA DETECTED IN THIS PATIENT'S SAMPLE. (REFERENCE RANGE/NORMAL VALUE: NOT DETECTED) NOTE: THIS TEST USES INSTRUCTION ASSISTANT PRINCIPAL MEDIATED AMPLIFICATION METHOD TO DETECT rRNA FROM [...] Final Result [facility] [address] [place] [phone], [place] from Last 3 Months or Most Recently Relevant to Health Maintenance
--- OUTSIDE RECORDS SUMMARY | 2025-07-14 17:02 | XMS_ITS | Encounter Summary ---
Author Organization [facility] Address [address] [place] [address] Phone Care Team Providers Care Inspector Plumbing Name Role Phone Austyn Lane MD Primary Care Provider [phone] Encounter Details Date Type Department Care Team (Late st Contact Info) Description 12/21/2011 Documentation [facility] Family Medicine [address] [place] [address] Family Medicine, Physician [address] [place], [place] [phone] Social History Tobacco Use Types Packs/Day Years [...] on filedocumented in this encounter Care Teams Inspector Plumbing Relationship Specialty Start Date End Date Austyn Lane MD [address] [place] [address] TATE Webb [address] PCP - General 04/12/17 11/14/22 documented as of this encounter
--- OUTSIDE RECORDS SUMMARY | 2025-07-14 17:02 | XMS_ITS | Encounter Summary ---
Author Organization [employer] Address [address] [facility] 7t [place] [address] Care Team Providers Care Publications Distribution Clerk Name Role Phone Bernadine Ramos Primary Care Provider Encounter Details Date Type Department Care Team (Latest Contact Info) Description 07/14/2025 Results Follow-Up [facility] MEDICINE [address] [place] [address] Bernadine Ramos ANP [address] [place] [address] BI Mammogram Diagnostic Tomosynthesis Bilateral Social History Tobacco Use Types Packs/Day Years [...] with others, in a hotel, in a usp, living outside on the street, on a [...] as of this encounter Miscellaneous Notes * Result Encounter Note - ITZEL [place] - 07/14/2025 3:43 PM EST Jef Bernal, The bump in your breast is a small benign cyst. If it is bothersome, we can refer you to have it removed. Please call our office if you have any questions. Por favor llame a la oficina si tiene preguntas. Take care, Cu??Bernadine gan CONSTRUCTION SITE CROSSING GUARD documented in this encounter Plan of Treatment Upcoming Encounters Date Type Department Care Team (Late st Contact Info) Description 08/20/2025 2:15 PM EST Office Visit [facility] MEDICINE [address] [place] [address] Bernadine Ramos ANP [address] [place] [address] documented as of this encounter Goals Goal Patient Goal Type Associated Problems Recent Progress Patient-Stated? Author Help patients manage their type 2 diabetes Care Plan Help patients manage their type 2 diabetes Bernadine Olivares ANP Patient has chronic kidney disease Care Plan Patient has chronic kidney disease Bernadine Olivares ANP documented as of this encounter Visit Diagnoses Not on filedocumented in this encounter Additional Health Concerns Active Problems Noted Date Diagnosed Date Help patients manage their type 2 diabetes 07/14 Patient has chronic kidney disease 07/14/2025 Assessment Noted Time PHQ-9 Depression Total Score: 8 06/23/20 24 10:48 AM EDT documented as of this encounter Care Teams Publications Distribution Clerk Relationship Specialty Start Date End Date Bernadine Ramos ANP [address] [place] [address] PCP - General Family Medicine 02/16/20 [facility] 07/11/15 documented as of this encounter
--- OUTSIDE RECORDS SUMMARY | 2025-07-14 17:02 | XMS_ITS | Encounter Summary ---
Author Organization [employer] Address [address] [facility] 7t [place] [address] Care Team Providers Care Bowling Pin Refinisher Name Role Phone Bernadine Ramos Primary Care Provider Encounter Details Date Type Department Care Team ([facility] st Contact Info) Description 07/09/2025 Telephone [facility] MEDICINE [address] [place] [address] Bernadine Ramos ANP [address] [place] [address] Social History Tobacco Use Types Packs/Day Years [...] encounter Miscellaneous Notes * Telephone Encounter - Geni Elias RN - 07/09/2025 4:13 PM EST Call returned to patient regarding request for follow-up after [facility] Emergency Department visit. Patient reports she was seen in the ED yesterday (07/08/25) for cold symptoms x1 day. Today she feels worse, with new discomfort in her bottom jaw/teeth. Patient reports she took her first dose of Tylenol just prior to the call and is unsure of its effectiveness. She denies fever, shortness of breath, or chest pain. At the ED, testing included chest X-ray, blood work, and COVID and flu swabs--all results were normal except for elevated white blood cell count. She was advised on home care and prescribed an inhaler and cough medicine. Patient also mentioned her GI specialist recently prescribed vitamin D supplementation for low vitamin D levels. Patient has a PCP follow-up scheduled for 08/20/25 at 2:15 PM but mentions that the ED advised PCP follow up which is the purpose of the call. Triage Assessment & Recommendations: Advised patient to continue prescribed medications (inhaler, cough medicine, Tylenol as needed for pain/fever) and home care treatment as directed, since symptoms are still early and she was just evaluated yesterday. Encouraged rest, fluids, humidified air, and warm saltwater gargles for throat/jaw discomfort. Monitor symptoms over the next few days for improvement. When to Call Back / Seek Care Sooner: Fever >=101 F lasting more than 3 days Worsening jaw or facial pain/swelling Shortness of breath, wheezing, or chest pain Inability to eat or drink adequately No improvement or worsening of symptoms after several days of treatment. Plan: Recommended to follow up with PCP as scheduled. Call back mid to next week if symptoms are no better or sooner if symptoms are worsening. Patient verbalized understanding and agreed with plan. Protocol Used: Cough (Adult) Protocol-Based Disposition: See in Office or Video Visit Today or Tomorrow Video visit not offered Positive Triage Questions: * Patient wants to be seen * Cough with cold symptoms (e.g., runny nose, postnasal drip, throat clearing) * All higher-acuity triage questions were negative Care Advice Discussed: * Coughing Spells * Prevent Dehydration * Reassurance and Education - Common Cold Symptoms * For a Runny Nose - Blow Your Nose * Pain and Fever Medicines * Expected Course * Reasons To Call Back - Difficulty breathing occurs - Fever lasts more than 3 days - Nasal discharge lasts more than 10 days - Cough lasts more than 3 weeks - You become worse * Telephone Encounter - Danyel Singh - 07/09/2025 2:49 PM EST Patient calling to report ED visit on : Date:07/08 Hospital: [facility] Seen for: flu Symptomatic Yes *if yes message should go to Triage Symptom: Cough Outcome: Schedule an appointment to be seen within 24 hours Reason: Caller denied all higher acuity questions documented in this encounter Plan of Treatment Upcoming Encounters Date Type Department Care Team (Late st Contact Info) Description 08/20/2025 2:15 PM EST Office Visit [facility] MEDICINE [address] [place], [place] [phone] Bernadine Ramos ANP [address] [place], [place] [phone] documented as of this encounter Visit Diagnoses Not on filedocumented in this encounter Additional Health Concerns Assessment Noted Time PHQ-9 Depression Total Score: 8 06/23/20 24 10:48 AM EDT documented as of this encounter Care Teams Bowling Pin Refinisher Relationship Specialty Start Date End Date Bernadine Ramos ANP [address] [place] [address] PCP - General Family Medicine 02/16/20 [facility] 07/11/15 documented as of this encounter
--- OUTSIDE RECORDS SUMMARY | 2025-07-14 17:02 | XMS_ITS | Encounter Summary ---
Author Organization [facility] Address [address] [place] [address] Phone Care Team Providers Care Resistor Testing Machine Operator Name Role Phone Austyn Lane MD Primary Care Provider [phone] Encounter Details Date Type Department Care Team (Late st Contact Info) Description 11/10/2009 Documentation [facility] Family Medicine [address] [place] [address] Family Medicine, Physician [address] [place], [place] [phone] Social History Tobacco Use Types Packs/Day Years [...] on filedocumented in this encounter Care Teams Resistor Testing Machine Operator Relationship Specialty Start Date End Date Austyn Lane MD [address] [place] [address] TATE Webb [address] PCP - General 04/12/17 11/14/22 documented as of this encounter
--- OUTSIDE RECORDS SUMMARY | 2025-07-14 17:02 | XMS_ITS | Clinical Summary ---
Author Organization [employer] Address [address] [facility] 7t [place] [address] Care Team Providers Care Tongue Binder Name Role Phone Vazquez Louis Primary Care Provider [phone] Allergies No known active allergies Medications albuterol [...] tablet 11/10/19 23 Active Continuous Blood Gluc Inflatable Buildings Laminator (FreeStyle Angi 2 [place]) deviceIndicatio ns:Type 2 diabetes mellitus with hypoglycemia [...] complication, without long-term current use of insulin ([facility]) 1 each every 14 (fourteen) days. [...] Obstructive sleep apnea syndrome 06/12/2018 Rheumatoid arthritis (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) 06/18/2025 Orders Only GENERIC EXTERNAL DATA DEPARTMENT Provider, Generic External Data 06/04/[address] [address] Vazquez Louis ANP 05/27/2025 2:30 PM EDT Office Visit [address] [address] Vazquez Louis ANP Cyst of skin of left breast (Primary Dx); Type 2 diabetes mellitus with other specified complication, without long-term current use of insulin ([facility]); Encounter for immunization 05/27/2025 Travel 05/25/2025 Telephone [facility] [place] [address] Vazquez Louis ANP chart prep 05/05/[address] [address] Yanelis Norman RN 04/13/[address] [address] Vazquez Louis ANP Type 2 diabetes mellitus with other specified complication, without long-term current use of insulin ([facility]) from Last 3 Months Immunizations Immunization Administration [...] MMR 10/08/1996,10/24/1993 Meningococcal MCV4P ACYW-135 09/17/2006 Novel Syoociajw-A2N6-36, all formulations 06/21/2009 Pneumococcal Conjugate PCV 20 [...] Description 08/20/2025 2:15 PM EST Office Visit [facility] [address] [place] [address] Vazquez Louis ANP [address] [place] [address] Health Maintenance Due Date Last Done Comments [...] on patient's age to complete this topic Goals Goal Patient Goal Type Associated Problems Recent Progress Patient-Stated? Author Help patients manage their type 2 diabetes Care Plan Help patients manage their type 2 diabetes No Vazquez Louis ANP Patient has chronic kidney disease Care Plan Patient has chronic kidney disease Vazquez Olivares ANP Procedures Procedure Name Priority Date/Time Associated Diagnosis Comments BI US BREAST LIMITED LEFT Routine 07/14/2025 2:18 PM EST Cyst of skin of left breast BI MAMMOGRAM DIAGNOSTIC TOMOSYNTHESIS BILATERAL Routine 07/14/2025 2:10 PM EST Cyst of skin of left breast VITAMIN D 25-OH (D2 AND D3) Routine [...] coma, without long-term current use of insulin (CMS/[facility]) ZZZ HISTORICAL HPV E6/E7 RFLX BECCA 16 Routine 02/07/2021 3:19 PM EDT HM PAP/HPV Routine 02/07/2021 from Last 3 Months or Most Recently Relevant to Health Maintenance Results * BI US Breast Limited Left (07/14/2025 2:18 PM EST) Anatomical Region Laterality Modality Breast Left Ultrasound 07/14/2025 2:18 PM EST Narrative 07/14/2025 3:08 PM EST [facility] [address] [place] [address] Ultrasound Report Signed Patient: Dolores Baltazar MR#: [id number] : 1990 Acct:[id number] Age/Sex: 34 / F ADM Date: 07/14/25 Loc: HO.MAMMO Attending Dr: Vazquez Louis NP Ordering Physician: VAZQUEZ LOUIS NP Date of Service: 07/14/25 Procedure(s): US Breast LT Limited Mamm Only Accession Number(s): [id number] cc: VAZQUEZ LOUIS NP Reason for Exam: possible cyst outer lower quadrant L breast EXAMINATION: MM DIAGNOSTIC DIGITAL BREAST TOMOSYNTHESIS, BILATERAL Left Limited ultrasound. CLINICAL INFORMATION: Elizabeth female superficial left breast palpable lump for one month. When the patient squeezes the superficial area plus comes out. COMPARISON: Mammography: Comparison is made with relevant prior exams. TECHNIQUE: Digital breast mammography with tomosynthesis is performed in both the craniocaudal and mediolateral oblique views along with computer-aided detection (CAD). FINDINGS: There are scattered areas of fibroglandular density. Right: There are no significant masses, abnormal calcifications, or other abnormalities. Left: BB marker in the lower central breast middle to posterior depth with a faint underlying superficial focal asymmetry. No suspicious calcifications or other abnormal findings. Targeted color Doppler ultrasound scanning in the left breast area of patient's palpable lump lower outer quadrant 5:00 14 cm from nipple demonstrates a intradermal hypoechoic oval solid mass consistent with a benign epidermal inclusion cyst/sebaceous cyst measuring 3 x 2 x 4 mm.. Results are provided to the patient at time of visit by the technologist. US/US Breast LT Limited Mamm Only IMPRESSION: Right: Negative. Left: Benign dermal sebaceous cyst/epidermal inclusion cyst. Recommend clinical evaluation and follow-up. ASSESSMENT: BI-RADS Category 2: Benign RECOMMENDATION: Recommend clinical evaluation and followup Electronically signed by: Yudi Ceballos DO 07/14/2025 03:05 PM [facility] Dictated By: Yudi Ceballos DO Signed By: <Electronically signed by Yudi Ceballos DO in OV> 07/14/25 1505 DD/ 1418 TD/TT: 07/14/25 1438 [employer] Power Shovel Operator: Procedure Note Donotuseinterpreter, Image - 07/14/2025 [facility] [address] [place] [address] Ultrasound Report Signed Patient: Lou Baltazar#: [id number] : 1990Acct:[id number] Age/Sex: 34 / FADM Date: 07/14/25 Loc: AKBARO Attending Dr: Vazquez Louis NP Ordering Physician: VAZQUEZ LOUIS NP Date of Service: 07/14/25 Procedure(s): US Breast LT Limited Mamm Only Accession Number(s): [id number] cc: VAZQUEZ LOUIS NP Reason for Exam: possible cyst outer lower quadrant L breast EXAMINATION: MM DIAGNOSTIC DIGITAL BREAST TOMOSYNTHESIS, BILATERAL Left Limited ultrasound. CLINICAL INFORMATION: Elizabeth female superficial left breast palpable lump for one month. When the patient squeezes the superficial area plus comes out. COMPARISON: Mammography: Comparison is made with relevant prior exams. TECHNIQUE: Digital breast mammography with tomosynthesis is performed in both the craniocaudal and mediolateral oblique views along with computer-aided detection (CAD). FINDINGS: There are scattered areas of fibroglandular density. Right: There are no significant masses, abnormal calcifications, or other abnormalities. Left: BB marker in the lower central breast middle to posterior depth with a faint underlying superficial focal asymmetry. No suspicious calcifications or other abnormal findings. Targeted color Doppler ultrasound scanning in the left breast area of patient's palpable lump lower outer quadrant 5:00 14 cm from nipple demonstrates a intradermal hypoechoic oval solid mass consistent with a benign epidermal inclusion cyst/sebaceous cyst measuring 3 x 2 x 4 mm.. Results are provided to the patient at time of visit by the technologist. US/US Breast LT Limited Mamm Only IMPRESSION: Right: Negative. Left: Benign dermal sebaceous cyst/epidermal inclusion cyst. Recommend clinical evaluation and follow-up. ASSESSMENT: BI-RADS Category 2: Benign RECOMMENDATION: Recommend clinical evaluation and followup Electronically signed by: Yudi Ceballos DO 07/14/2025 03:05 PM EST Dictated By: Yudi Ceballos DO Signed By: <Electronically signed by Yudi Ceballos DO in OV> 07/14/25 1505 DD/ 1418 TD/TT: 07/14/25 1438 Convertible Power Shovel Operator: us [facility] US PROCEDURES Final Result * BI Mammogram Diagnostic Tomosynthesis Bilateral (07/14/2025 2:10 PM EST) Anatomical Region Laterality Modality Breast Bilateral Mammography 07/14/2025 2:10 PM EST Narrative 07/14/2025 3:08 PM EST [facility] [address] [place] [address] Mammography Report Signed Patient: Dolores Baltazar MR#: [id number] : 1990 Acct:[id number] Age/Sex: 34 / F ADM Date: 07/14/25 Loc: HO.MAMMO Attending Dr: Vazquez Louis NP Ordering Physician: VAZQUEZ LOUIS NP Results: 2Benign Date of Service: 07/14/25 Follow Up: 1 Year From Orig ina Mammogram Procedure(s): MM tomosynthesis diagnostic BI Accession Number(s): [id number] cc: VAZQUEZ LOUIS NP Reason For Exam: possible cyst outer lower quadrant L breast EXAMINATION: MM DIAGNOSTIC DIGITAL BREAST TOMOSYNTHESIS, BILATERAL Left Limited ultrasound. CLINICAL INFORMATION: Elizabeth female superficial left breast palpable lump for one month. When the patient squeezes the superficial area plus comes out. COMPARISON: Mammography: Comparison is made with relevant prior exams. TECHNIQUE: Digital breast mammography with tomosynthesis is performed in both the craniocaudal and mediolateral oblique views along with computer-aided detection (CAD). FINDINGS: There are scattered areas of fibroglandular density. Right: There are no significant masses, abnormal calcifications, or other abnormalities. Left: BB marker in the lower central breast middle to posterior depth with a faint underlying superficial focal asymmetry. No suspicious calcifications or other abnormal findings. Targeted color Doppler ultrasound scanning in the left breast area of patient's palpable lump lower outer quadrant 5:00 14 cm from nipple demonstrates a intradermal hypoechoic oval solid mass consistent with a benign epidermal inclusion cyst/sebaceous cyst measuring 3 x 2 x 4 mm.. Results are provided to the patient at time of visit by the technologist. MM/MM tomosynthesis diagnostic BI IMPRESSION: Right: Negative. Left: Benign dermal sebaceous cyst/epidermal inclusion cyst. Recommend clinical evaluation and follow-up. ASSESSMENT: BI-RADS Category 2: Benign RECOMMENDATION: Recommend clinical evaluation and followup Electronically signed by: Yudi Ceballos DO 07/14/2025 03:05 PM [facility] Dictated By: Yudi Ceabllos DO Signed By: <Electronically signed by Yudi Ceballos DO in OV> 07/14/25 1505 DD/ 1410 TD/TT: 07/14/25 1414 Convertible Power Shovel Operator: Procedure Note Donotuseinterpreter, Image - 07/14/2025 [facility] [address] [place] [address] Mammography Report Signed Patient: Lou Baltazar#: [id number] : 1990Acct:[id number] Age/Sex: 34 / FADM Date: 07/14/25 Loc: HO.MAMMO Attending Dr: Vazquez Louis NP Ordering Physician: VAZQUEZ LOUIS NPResults: 2Benign Date of Service: 07/14/25Follow Up: 1 Year From Orig inal Mammogram Procedure(s): MM tomosynthesis diagnostic BI Accession Number(s): [id number] cc: VAZQUEZ LOUIS NP Reason For Exam: possible cyst outer lower quadrant L breast EXAMINATION: MM DIAGNOSTIC DIGITAL BREAST TOMOSYNTHESIS, BILATERAL Left Limited ultrasound. CLINICAL INFORMATION: Elizabeth female superficial left breast palpable lump for one month. When the patient squeezes the superficial area plus comes out. COMPARISON: Mammography: Comparison is made with relevant prior exams. TECHNIQUE: Digital breast mammography with tomosynthesis is performed in both the craniocaudal and mediolateral oblique views along with computer-aided detection (CAD). FINDINGS: There are scattered areas of fibroglandular density. Right: There are no significant masses, abnormal calcifications, or other abnormalities. Left: BB marker in the lower central breast middle to posterior depth with a faint underlying superficial focal asymmetry. No suspicious calcifications or other abnormal findings. Targeted color Doppler ultrasound scanning in the left breast area of patient's palpable lump lower outer quadrant 5:00 14 cm from nipple demonstrates a intradermal hypoechoic oval solid mass consistent with a benign epidermal inclusion cyst/sebaceous cyst measuring 3 x 2 x 4 mm.. Results are provided to the patient at time of visit by the technologist. MM/MM tomosynthesis diagnostic BI IMPRESSION: Right: Negative. Left: Benign dermal sebaceous cyst/epidermal inclusion cyst. Recommend clinical evaluation and follow-up. ASSESSMENT: BI-RADS Category 2: Benign RECOMMENDATION: Recommend clinical evaluation and followup Electronically signed by: Yudi Ceballos DO 07/14/2025 03:05 PM [facility] Dictated By: Yudi Ceballos DO Signed By: <Electronically signed by Yudi Ceballos DO in OV> 07/14/25 1505 DD/ 1410 TD/TT: 07/14/25 1414 Convertible Power Shovel Operator: Vazquez [facility] [place] PROCEDURES Final Result * (ABNORMAL) VITAMIN D 25-OH (D2 AND D3) (06/18/2025 2:14 PM EDT) Vitamin D, 25-OH, D2 <4 ng/mL [facility] Comment:This test was develo ped and its analytical performancecharacteristics have been determined by [employer] [place], [place]. It hasnot been cleared or approved by the .S. Food and DrugAdministration. This assay has been validated pursuantto the CLIA regulations and is used for clinicalpurposes.THIS TEST WAS PERFORMED AT:[facility] [id number] [place] [address]YUGBURLNOEL REYNOLDS MD,PHD Vitamin D, 25-OH, D3 14 ng/mL [facility] Comment:This test was develo ped and its analytical performancecharacteristics have been determined by [place] [place]. It hasnot been cleared or approved by the U.S. Food and DrugAdministration. This assay has been validated pursuantto the CLIA regulations and is used for clinicalpurposes. Vitamin D, 25-OH, Total 14(A) 30 - 100 ng/mL [facility] Comment:Vitamin D, 25-Hydrox y reports [...] = 30 ng/mL.For additional information, please refer tohttp://education.[employer]/faq/BHF011(This link is being provided for informational/educational purposes only.) 06/18/2025 2:14 PM EDT 06/18/2025 2:14 PM EDT Generic External Data Provider LAB BLOOD ORDERAB LES Final Result Performing Organization Address [facility] Co de Phone Number [facility] [address] [place] [phone] * Vitamin B12 (Cobalamin) and Folate Panel, Serum (06/18/2025 2:14 PM EDT) Vitamin B12 231 200 - 900 pg/mL [facility] Comment:NORMAL 200-900 PG/ML INDETERMINATE 160-199 PG/ML DEFICIENT < 160 PG/ML Folate 9.4 > or = 4.0 ng/mL [facility] Comment:Reference Values:> o r = 4.0 ng/mL< 4.0 ng/mL suggests folate deficiency Methotrexate, aminopterin and folinic acid(leucovorin) are chemotherapeutic agents whose molecularstructures are similar to folate; therefore, the Architectfolate assay cannot be used for patients using these drugs. 06/18/2025 2:14 PM EDT 06/18/2025 2:14 PM EDT Generic External Data Provider LAB BLOOD ORDERAB LES Final Result Performing Organization Address [facility] de Phone Number [facility] [address] [place] [phone] * Tissue Transglutaminase (tTG) Antibody (IgG) (06/18/2025 2:14 PM EDT) Tissue Transglutaminase Antibody IgG <1.0 U/mL [facility] Comment:Value Interpretation ----- <15.0 Antibody not detected> or = 15.0 Antibody detectedTHIS TEST WAS PERFORMED AT:[facility] [place] [phone] PEREZ MD 06/18/2025 2:14 PM EDT 06/18/2025 2:14 PM EDT [email or web address] External Data Provider LAB BLOOD ORDERAB LES Final Result Performing Organization Address [facility] Co de Phone Number [facility] [address] [place] [phone] * Tissue Transglutaminase Antibody, IgA (06/18/2025 2:14 PM EDT) Pathologist [facility] Transglutaminase IgA <1.0 U/mL [facility] Comment:Value Interpretation ----- <15.0 Antibody not detected> or = 15.0 Antibody detectedTHIS TEST WAS PERFORMED AT:[facility] [place] [phone] PEREZ MD 06/18/2025 2:14 PM EDT 06/18/2025 2:14 PM EDT [email or web address] External Data Provider LAB BLOOD ORDERAB LES Final Result Performing Organization Address [facility] de Phone Number [facility] [address] [place] [phone] * POCT Hgb A1c (05/27/2025 2:48 PM EDT) [facility] Hemoglobin A1C 5.7 4.0 - 5.7 % QC Media Lot # [id number] Lot# Expiration Date , Blood 05/27/2025 2:48 PM EDT us Vazquez Louis ANP POINT OF CARE TEST ENTER/EDIT OR DERABLES Final Result * POCT Glucose (05/27/2025 2:46 PM EDT) Pathologist [facility] Glucose Blood, POC 103 60 - 200 mg/dL QC Media Lot # [id number] Lot# Expiration Date , Blood Capillary blood specimen / Unknown 05/27/2025 2:46 PM EDT Vazquez Louis ANP POINT OF CARE TEST ENTER/EDIT OR DERABLES Final Result * (ABNORMAL) Lipid Panel, Standard (11/11/2024 10:49 AM EDT) Triglycerides 182(H) <150 mg/dL [facility] Comment:Desirable Triglyceri de: less than 150 mg/dLBorderline High Triglyceride 150-199 mg/dLHigh Triglyceride: 200-499 mg/dLVery High Triglyceride: greater than or equal to 5OO mg/dL Cholesterol 192 <200 mg/dL [facility] Comment:Desirable Cholestero l: less than 200 mg/dLBorderline High Cholesterol: 200-239 mg/dLHigh Cholesterol: greater than 239 mg/dL LDL Cholesterol Calculated 125(H) <100 mg/dL [facility] Comment:Desirable LDL: less than 100 mg/dLNear Optimal/Above Optimal LDL: 110- 129 mg/dLBorderline High LDL: 130-159 mg/dLHigh LDL: 160-189 mg/dLVery High LDL: greater than or equal to 190 mg/dL HDL Cholesterol 31(L) >40 mg/dL [facility] Comment:Desirable HDL: great er than 40 mg/dL Note: This HDL assay may give artificially low results in patients with liver disease. Blood Venous blood specimen / Unknown 11/11/2024 10:49 AM EDT 11/11/2024 10:49 AM EDT Vazquez Louis ANP LAB BLOOD ORDERABLES Final Resul t [facility] [address] [place] [phone] * HPV E6/E7 RFLX BECCA 16 18/45 (02/07/2021 3:19 PM EDT) HPV 16 RNA [facility]NP [facility] HPV 18/45 RNA [facility] HPV E6 E7 ADD [facility]NP [facility] HPV mRNA E6/E7 rflx Not Detected Not Detected [facility] Comment: Methodology: Field Contact Technician-Mediated Amplification This assay detects E6/E7 viral messenger RNA (mRNA) from 14 high-risk HPV types (16,18,31,33,35,39,45,51,52,56,58,59,66,68). The analytical performance characteristics of this assay have been determined by [employer]. The modifications have not been cleared or approved by the FDA. This assay has been validated pursuant to the CLIA regulations and is used for clinical purposes. For additional information, please refer to http://education.[employer]/faq/SJP609c8 (This link if provided for information/ educational purposes only.) THIS TEST WAS PERFORMED AT: [facility] [address] [place] [address] [address]LO[address],[place] [address] KARIE PEREZ MD 02/07/2021 3:19 PM EDT Giorgio Mock MD HISTORICAL/NON ORDERABLE LABS Fi nal Result Performing Organization Address City/State/[facility] Co de Phone Number [facility] [address] [place] [address] * Pap Smear (02/07/2021) Historical Provider HEALTH MAINTENANCE Final Result from Last 3 Months or Most Recently Relevant to Health Maintenance Additional Health Concerns Active Problems Noted Date Diagnosed Date Help patients manage their type 2 diabetes 07/14 Patient has chronic kidney disease 07/14/2025 [facility] Care Teams Tongue Binder Relationship Specialty Start Date End Date Vazquez Louis ANP [address] [place] [phone] PCP - General Family Medicine 02/16/20 [facility] 07/11/15
--- OUTSIDE RECORDS SUMMARY | 2025-07-14 17:02 | XMS_ITS | Encounter Summary ---
Author Organization [employer] Address [address] [place] [address] [address] [place] [address] Care Team Providers Care Drip Molder Name Role Phone Bernadine Ramos Primary Care Provider [phone] Reason for Visit * Reason Onset Date Comments FYI 03/22/2023 Encounter Details Date Type Department Care Team ([facility] st Contact Info) Description 03/22/2023 Telephone [facility] [address] [place] [address] Bernadine Ramos ANP [address] [place] [address] FYI Social History Tobacco Use Types Packs/Day [...] - 03/22/2023 2:39 PM EDT [facility] [place] [facility] stating will be renewing pt care of plan on March 27 will be seeing pt 5 x a week for medication. documented in this encounter Plan of Treatment Upcoming Encounters Date Type Department Care Team (Late st Contact Info) Description 08/20/2025 2:15 PM EST Office Visit [facility] [address] [place] [address] Bernadine Ramos ANP [address] [place] [address] documented as of this encounter Visit Diagnoses Not on filedocumented in this encounter Additional Health Concerns Assessment Noted Time PHQ-9 Depression Total Score: 0 03/19/20 23 2:00 PM EDT documented as of this encounter Care Teams Drip Molder Relationship Specialty Start Date End Date Bernadine Ramos ANP [address] [place] [address] PCP - General Family Medicine 02/16/20 [facility] 07/11/15 documented as of this encounter
--- OUTSIDE RECORDS SUMMARY | 2025-07-14 17:02 | XMS_ITS | Encounter Summary ---
Author Organization [facility] Address [address] [place] [phone] Phone Care Team Providers Care Business Intelligence Developer Name Role Phone Austyn Lane MD Primary Care Provider [phone] Encounter Details Date Type Department Care Team (Late st Contact Info) Description 09/29/2012 Documentation [facility] [place] Medicine [address] [place] [address] Family Medicine, Physician [address] [place], [place] [phone] Social History Tobacco Use Types Packs/Day Years [...] on filedocumented in this encounter Care Teams Business Intelligence Developer Relationship Specialty Start Date End Date Austyn Lane MD [address] [place] [address] [place] [address] PCP - General 04/12/17 11/14/22 documented as of this encounter
--- OUTSIDE RECORDS SUMMARY | 2025-07-14 17:02 | XMS_ITS | Encounter Summary ---
Author Organization [facility] Address [address] [place] [phone] Phone Care Team Providers Care Kick Plate Installer Name Role Phone Austyn Lane MD Primary Care Provider [phone] Encounter Details Date Type Department Care Team (Late st Contact Info) Description 12/01/2012 Documentation [facility] [place] Family Medicine [address] [place] [address] Family Medicine, Physician [address] [place], [place] [phone] Social History Tobacco Use Types Packs/Day Years [...] on filedocumented in this encounter Care Teams Kick Plate Installer Relationship Specialty Start Date End Date Austyn Lane MD [address] [place] [address] [place] [address] PCP - General 04/12/17 11/14/22 documented as of this encounter
== END 2025-07-14 13:50 | disposition home or self-care (01) ==
LOC: HO.MAMMO 13:49
PROVIDERS: PCP Nurse Practitioner Primary Care; Visit Provider Nurse Practitioner Primary Care
DX: N60.82 Other benign mammary dysplasias of left breast (principal)
CPT/HCPCS: 76642; 77062; 77066

== ENCOUNTER → 2025-07-14 14:00 | Outpatient (BNV) | payer MEDICAID, SELFPAY | PROVIDERS: PCP Nurse Practitioner Primary Care; Visit Provider Internal Medicine | DX: N63.23 Unspecified lump in the left breast, lower outer quadrant (principal) | CPT/HCPCS: 76642; 77062; 77066 ==

== ENCOUNTER 2025-07-23 15:26 | Outpatient (AMB) | payer MEDICAID, SELFPAY ==
--- OUTSIDE RECORDS SUMMARY | 2025-07-23 15:32 | XMS_ITS | Encounter Summary ---
Author Organization [employer] Address [address] [facility] 7t [place] [address] Care Team Providers Care Automatic Dispenser Mechanic Name Role Phone Bernadine Ramos Primary Care Provider [phone] Encounter Details Date Type Department Care Team (Latest Contact Info) Description 07/14/2025 Results Follow-Up [facility] MEDICINE [address] [place] [address] Bernadine Ramos ANP [address] [place] [address] BI Mammogram Diagnostic Tomosynthesis Bilateral Social History [...] si tiene preguntas. Take care, Cu??Bernadine gan BRASS INSTRUMENT REPAIR TECHNICIAN documented in this encounter Plan of Treatment Upcoming Encounters Date Type Department Care Team (Late st Contact Info) Description 08/20/2025 2:15 PM EST Office Visit [facility] MEDICINE [address] [place] [address] Bernadine Ramos ANP [address] [place] [address] documented as of this encounter Goals Goal [...] documented as of this encounter Care Teams Automatic Dispenser Mechanic Relationship Specialty Start Date End Date Bernadine Ramos ANP [address] [place] [address] PCP - General Family Medicine 02/16/20 [facility] 07/11/15 07/19/25 documented as of this encounter
--- OUTSIDE RECORDS SUMMARY | 2025-07-23 15:32 | XMS_ITS | Encounter Summary ---
Author Organization [facility] Address [address] [place] [address] Phone Care Team Providers Care Registry Rn Name Role Phone Austyn Lane MD Primary Care Provider [phone] Encounter Details Date Type Department Care Team (Late st Contact Info) Description 09/29/2012 Documentation [facility] Family Medicine [address] [place] [address] Family Medicine, Physician [address] [place], [place] [phone] Social History Tobacco Use Types Packs/Day Years [...] on filedocumented in this encounter Care Teams Registry Rn Relationship Specialty Start Date End Date Asutyn Lane MD [address] [place] [address] TATE Webb [address] PCP - General 04/12/17 11/14/22 documented as of this encounter
--- OUTSIDE RECORDS SUMMARY | 2025-07-23 15:32 | XMS_ITS | Encounter Summary ---
Author Organization [employer] Address [address] [place] [address] 7t [place] [address] Care Team Providers Care Deck Hand Name Role Phone Bernadine Ramos Primary Care Provider [phone] Reason for Visit * Reason Onset Date Comments FYI 03/22/2023 Encounter Details Date Type Department Care Team ([facility] st Contact Info) Description 03/22/2023 Telephone [facility] MEDICINE [address] [place] [address] Bernadine Ramos ANP [address] [place] [address] FYI Social History Tobacco Use Types Packs/Day [...] - 03/22/2023 2:39 PM EDT Tc from [place] with [facility] stating will be renewing pt care of plan on March 27 will be seeing pt 5 x a week for medication. documented in this encounter Plan of Treatment Upcoming Encounters Date Type Department Care Team (Late st Contact Info) Description 08/20/2025 2:15 PM EST Office Visit [facility] MEDICINE [address] [place] [address] Bernadine Ramos ANP [address] [place] [address] documented as of this encounter Visit Diagnoses Not on filedocumented in this encounter Additional Health Concerns Assessment Noted Time PHQ-9 Depression Total Score: 0 03/19/20 23 2:00 PM EDT documented as of this encounter Care Teams Deck Hand Relationship Specialty Start Date End Date Bernadine Ramos ANP [address] [place] [address] PCP - General Family Medicine 02/16/20 [facility] 07/11/15 07/19/25 documented as of this encounter
--- OUTSIDE RECORDS SUMMARY | 2025-07-23 15:32 | XMS_ITS | Encounter Summary ---
Author Organization [facility] Address [address] [place] [address] Phone Care Team Providers Care Resource Specialist Name Role Phone Austyn Lane MD Primary Care Provider [phone] Encounter Details Date Type Department Care Team (Late st Contact Info) Description 12/01/2012 Documentation [facility] [place] [address] [place] [address] Family Medicine, Physician [address] [place], [place] [phone] Social History Tobacco Use Types Packs/Day Years [...] on filedocumented in this encounter Care Teams Resource Specialist Relationship Specialty Start Date End Date Austyn Lane MD [address] [place] [address] TATE Webb [address] PCP - General 04/12/17 11/14/22 documented as of this encounter
--- OUTSIDE RECORDS SUMMARY | 2025-07-23 15:32 | XMS_ITS | Encounter Summary ---
Author Organization [employer] Address [address] [facility] 7t [place] [address] Care Team Providers Care Inventory Control Coordinator Name Role Phone Bernadine Ramos Primary Care Provider [phone] Reason for Visit * Reason Onset Date Comments Medication Problem 07/22/2025 Encounter Details Date Type Department Care Team ([facility] st Contact Info) Description 07/22/2025 Telephone [facility] MEDICINE [address] [place] [address] Bernadine Ramos ANP [address] [place] [address] Medication Problem Social History Tobacco Use Types Packs/Day Years [...] Miscellaneous Notes * Telephone Encounter - Laura Vigil RN - 07/22/2025 2:07 PM EST PA packet prepared, pending PCP signature. * Telephone Encounter - Danette Thomas RN - 07/22/2025 10:03 AM EST Pt sent a my chart message that having a difficult time picking up Rx for Angi 2 sensors, [facility] staff reports that they are awaiting for a prior authorization before dispensing. Will sendmessage to green team for PA documented in this encounter Plan of Treatment Upcoming Encounters Date Type Department Care Team (Late st Contact Info) Description 08/20/2025 2:15 PM EST Office Visit [facility] MEDICINE [address] [place] [address] Bernadine Ramos ANP [address] [place] [address] documented as of this encounter Goals Goal Patient Goal Type Associated Problems Recent Progress Patient-Stated? Author Help patients manage their type 2 diabetes Care Plan Help patients manage their type 2 diabetes No Bernadine Ramos ANP Patient has chronic kidney disease Care Plan Patient has chronic kidney disease Bernadine Olivares ANP Patient has chronic kidney disease Care Plan Patient has chronic kidney disease Yoly Jimenez RN Patient has chronic kidney disease Care Plan Patient has chronic kidney disease No Danette Thomas RN Patient has chronic kidney disease Care Plan Patient has chronic kidney disease No Danette Thomas RN documented as of this encounter Visit Diagnoses Not on filedocumented in this encounter Additional Health Concerns Active Problems Noted Date Diagnosed Date Help patients manage their type 2 diabetes 07/14 Patient has chronic kidney disease 07/14/2025 Patient has chronic kidney disease 07/21/2025 Patient has chronic kidney disease 07/22/2025 Patient has chronic kidney disease 07/22/2025 Assessment Noted Time PHQ-9 Depression Total Score: 8 06/23/20 24 10:48 AM EDT documented as of this encounter Care Teams Inventory Control Coordinator Relationship Specialty Start Date End Date Bernadine Ramos ANP [address] [place] [address] PCP - General Family Medicine 02/16/20 documented as of this encounter
--- OUTSIDE RECORDS SUMMARY | 2025-07-23 15:32 | XMS_ITS | Encounter Summary ---
Author Organization [employer] Address [address] [facility] 7t [place] [address] Care Team Providers Care Fuel Quality Tech Name Role Phone Bernadine Ramos Primary Care Provider [phone] Reason for Visit * Reason Comments Med Refill Encounter Details Date Type Department Care Team (Late st Contact Info) Description 07/22/2025 Refill [facility] MEDICINE [address] [place], [place] [phone] Bernadine Ramos ANP [address] [place], [place] [phone] Non-seasonal allergic rhinitis, unspecified trigger Social History Tobacco Use Types Packs/Day Years [...] Description 08/20/2025 2:15 PM EST Office Visit [facility] MEDICINE [address] [place] [address] Bernadine Ramos ANP [address] [place] [address] documented as of this encounter Goals Goal Patient Goal Type Associated Problems Recent Progress Patient-Stated? Author Help patients manage their type 2 diabetes Care Plan Help patients manage their type 2 diabetes No Bernadine Ramos ANP Patient has chronic kidney disease Care Plan Patient has chronic kidney disease No Bernadine Ramos ANP Patient has chronic kidney disease Care Plan Patient has chronic kidney disease Yoly Jimenez RN Patient has chronic kidney disease Care Plan Patient has chronic kidney disease No Danette Thomas RN Patient has chronic kidney disease Care Plan Patient has chronic kidney disease No Danette Thomas RN documented as of this encounter Visit Diagnoses Diagnosis Non-seasonal allergic rhinitis, unspecified trigger documented in this encounter Additional Health Concerns Active [...] documented as of this encounter Care Teams Fuel Quality Tech Relationship Specialty Start Date End Date Bernadine Ramos ANP [address] [place] [address] PCP - General Family Medicine 02/16/20 documented as of this encounter
--- OUTSIDE RECORDS SUMMARY | 2025-07-23 15:32 | XMS_ITS | Encounter Summary ---
Author Organization [employer] Address [address] [place] [address] 7t [place] [address] Care Team Providers Care Concrete Pump Operator Helper Name Role Phone Bernadine Ramos Primary Care Provider [phone] Reason for Visit * Reason Comments Med Refill Encounter Details Date Type Department Care Team (Late st Contact Info) Description 2025 Refill [facility] MEDICINE [address] [place], [place] [phone] Bernadine Ramos ANP [address] [place], [place] [phone] Type 2 diabetes mellitus with hypoglycemia without coma, without long-term current use of insulin (HCC); Hypoglycemia Social History Tobacco Use Types Packs/Day Years [...] encounter Miscellaneous Notes * Telephone Encounter - Yoly Scott RN - 07/21/2025 10:58 AM EST [facility]phone [facility] who reported ortega 2 plus sensors still say needs PA. Requested they discontinue ortega 2 sensors in their system so that we don't get alerts as it was discontinued by condominium property manager. PA for ortega 2 plus sensors generated and placed on PCP's desk. Pending signature. documented in this encounter Plan of Treatment Upcoming Encounters Date Type Department Care Team (Late st Contact Info) Description 08/20/2025 2:15 PM EST Office Visit [facility] MEDICINE [address] [place] [address] Bernadine Ramos ANP [address] [place] [address] documented as of this encounter Goals Goal Patient Goal Type Associated Problems Recent Progress Patient-Stated? Author Help patients manage their type 2 diabetes Care Plan Help patients manage their type 2 diabetes No Bernadine Ramos ANP Patient has chronic kidney disease Care Plan Patient has chronic kidney disease No Bernadine Ramos ANP documented as of this encounter Visit Diagnoses Diagnosis Type 2 diabetes mellitus with hypoglycemia without coma, without long-term current use of insulin (HCC) Hypoglycemia Hypoglycemia, unspecified documented in this encounter Additional Health Concerns Active Problems Noted Date Diagnosed Date Help patients manage their type 2 diabetes 07/14 Patient has chronic kidney disease 07/14/2025 Assessment Noted Time PHQ-9 Depression Total Score: 8 06/23/20 24 10:48 AM EDT documented as of this encounter Care Teams Concrete Pump Operator Helper Relationship Specialty Start Date End Date Bernadine Ramos ANP [address] [place] [address] PCP - General Family Medicine 02/16/20 [facility] 07/11/15 07/19/25 documented as of this encounter
--- OUTSIDE RECORDS SUMMARY | 2025-07-23 15:32 | XMS_ITS | Encounter Summary ---
Author Organization [facility] Address [address] [place] [address] Phone Care Team Providers Care Assistant Director Of Residence Life Name Role Phone Austyn Lane MD Primary Care Provider [phone] Encounter Details Date Type Department Care Team (Late st Contact Info) Description 12/21/2011 Documentation [facility] Family Medicine [address] [place] [address] Family Medicine, Physician [address] [place], [place] [phone] Social History Tobacco Use Types Packs/Day Years [...] on filedocumented in this encounter Care Teams Assistant Director Of Residence Life Relationship Specialty Start Date End Date Austyn Lane MD [address] [place] [address] TATE Webb [address] PCP - General 04/12/17 11/14/22 documented as of this encounter
--- OUTSIDE RECORDS SUMMARY | 2025-07-23 15:32 | XMS_ITS | Encounter Summary ---
Author Organization [facility] Address [address] [place] [address] Phone Care Team Providers Care Agricultural Sciences Professor Name Role Phone Austyn Lane MD Primary Care Provider [phone] Encounter Details Date Type Department Care Team (Late st Contact Info) Description 04/06/2013 Documentation [facility] [place] [address] [place] [address] Family Medicine, Physician [address] [place], [place] [phone] Social History Tobacco Use Types Packs/Day Years [...] on filedocumented in this encounter Care Teams Agricultural Sciences Professor Relationship Specialty Start Date End Date Austyn Lane MD [address] [place] [address] TATE Webb [address] PCP - General 04/12/17 11/14/22 documented as of this encounter
--- OUTSIDE RECORDS SUMMARY | 2025-07-23 15:32 | XMS_ITS | Encounter Summary ---
Author Organization [employer] Address [address] [place] [address] [address] [place] [address] Care Team Providers Care Labor Specialist Name Role Phone Bernadine Ramos Primary Care Provider [phone] Encounter Details Date Type Department Care Team (Late st Contact Info) Description 05/29/2023 Orders Only [facility] MEDICINE [address] [place] [address] [phone] Provider, MD Estephanie Social History Tobacco Use [...] Description 08/20/2025 2:15 PM EST Office Visit [facility] MEDICINE [address] [place] [phone] Bernadine Ramos ANP [address] [place], [place] [phone] documented as of this encounter Procedures Procedure [...] documented as of this encounter Care Teams Labor Specialist Relationship Specialty Start Date End Date Bernadine Ramos ANP [address] [place] [address] PCP - General Family Medicine 02/16/20 [facility] 07/11/15 07/19/25 documented as of this encounter
--- OUTSIDE RECORDS SUMMARY | 2025-07-23 15:32 | XMS_ITS | Encounter Summary ---
Author Organization [employer] Address [address] [place] [address] [place], [place] [address] Care Team Providers Care Steno Pool Supervisor Name Role Phone Bernadine Ramos Primary Care Provider [phone] Reason for Visit * Reason Comments Med Refill Encounter Details Date Type Department Care Team (Late st Contact Info) Description 03/21/2023 Refill [facility] MEDICINE [address] [place] [phone] Bernadine Ramos ANP [address] [place] [address] [phone] Heartburn Social History Tobacco Use Types Packs/Day [...] Description 08/20/2025 2:15 PM EST Office Visit [facility] MEDICINE [address] [place] [phone] Bernadine Ramos ANP [address] [place], [place] [phone] documented as of this encounter Visit Diagnoses Diagnosis Heartburn documented in this encounter Additional Health Concerns Assessment Noted Time PHQ-9 Depression Total Score: 0 03/19/20 23 2:00 PM EDT documented as of this encounter Care Teams Steno Pool Supervisor Relationship Specialty Start Date End Date Bernadine Ramos ANP [address] [place] [address] PCP - General Family Medicine 02/16/20 [facility] 07/11/15 07/19/25 documented as of this encounter
--- OUTSIDE RECORDS SUMMARY | 2025-07-23 15:32 | XMS_ITS | Encounter Summary ---
Author Organization [facility] Address [address] [place] [address] Phone Care Team Providers Care Early Intervention School Psychologist Name Role Phone Austyn Lane MD Primary Care Provider [phone] Encounter Details Date Type Department Care Team (Late st Contact Info) Description 09/26/2012 Documentation [facility] Family Medicine [address] [place] [address] Family Medicine, Physician [address] [place], [place] [phone] Social History Tobacco Use Types Packs/Day Years [...] on filedocumented in this encounter Care Teams Early Intervention School Psychologist Relationship Specialty Start Date End Date Austyn Lane MD [address] [place] [address] TATE Webb [address] PCP - General 04/12/17 11/14/22 documented as of this encounter
--- OUTSIDE RECORDS SUMMARY | 2025-07-23 15:32 | XMS_ITS | Clinical Summary ---
Author Organization [facility] Address [address] [place] [address] Phone Care Team Providers Care Poultry Hanger Name Role Phone Unavailable Primary Care Provider [...] complete this topic Procedures * Due to [place] state law, this organization might not be sharing sensitive test results. Procedure Name Priority Date/Time Associated Diagnosis Comments CHLAMYDIA AND GONORRHEA, AMPLIFIED Routine 08/08/2010 1:32 PM EST from Last 3 Months or Most Recently Relevant to Health Maintenance Results * Due to [place] state law, this organization might not be sharing sensitive test results. * Chlamydia and Gonorrhoea, Amplified (08/08/2010 1:32 PM EST) URINE CHLAMYDIA AMP PROBE NEGATIVE [facility] Comment: NO CHLAMYDIA TRACHOMATIS RNA DETECTED IN THIS PATIENT'S SAMPLE. (REFERENCE RANGE/NORMAL VALUE: NOT DETECTED) URINE GC AMP PROBE NEGATIVE [facility] Comment: NO NEISSERIA GONORRHOEAE RNA DETECTED IN THIS PATIENT'S SAMPLE. (REFERENCE RANGE/NORMAL VALUE: NOT DETECTED) NOTE: THIS TEST USES WASTE TRANSPORTATION TECHNICIAN MEDIATED AMPLIFICATION METHOD TO DETECT rRNA [...] OTHER AGENTS. 08/08/2010 1:32 PM EST Narrative [facility] - 08/08/2010 1:32 PM EST URINE CHLAMYDIA GC AMP PROBE Veronica Lux NP LAB MICROBIOLOGY - GENERAL OR DERABLES Final Result [facility] [address] [place] [address], [place] from Last 3 Months or Most Recently Relevant to Health Maintenance
--- OUTSIDE RECORDS SUMMARY | 2025-07-23 15:32 | XMS_ITS | Encounter Summary ---
Author Organization [employer] Address [address] [facility] 7t [place] [address] Care Team Providers Care Insurance Processor Name Role Phone Bernadine Ramos Primary Care Provider [phone] Reason for Visit * Reason Onset Date Comments Medication Question 11/27/2024 Encounter Details Date Type Department Care Team ([facility] st Contact Info) Description 11/27/2024 Telephone [facility] MEDICINE [address] [place] [address] Bernadine Ramos ANP [address] [place] [address] Medication Question Social History Tobacco Use Types [...] covered by the Insurance. Contact pt at [phone] documented in this encounter Plan of Treatment Upcoming Encounters Date Type Department Care Team (Late st Contact Info) Description 08/20/2025 2:15 PM EST Office Visit [facility] MEDICINE [address] [place] [address] Bernadine Ramos ANP [address] [place] [address] documented as of this encounter Visit Diagnoses Not on filedocumented in this encounter Additional Health Concerns Assessment Noted Time PHQ-9 Depression Total Score: 8 06/23/20 24 10:48 AM EDT documented as of this encounter Care Teams Insurance Processor Relationship Specialty Start Date End Date Bernadine Ramos ANP [address] [place] [address] PCP - General Family Medicine 02/16/20 [facility] 07/11/15 07/19/25 documented as of this encounter
--- OUTSIDE RECORDS SUMMARY | 2025-07-23 15:32 | XMS_ITS | Encounter Summary ---
Author Organization [facility] Address [address] [place] [address] Phone Care Team Providers Care Structural Steel Erector Name Role Phone Austyn Lane MD Primary Care Provider [phone] Encounter Details Date Type Department Care Team (Late st Contact Info) Description 11/10/2009 Documentation [facility] Family Medicine [address] [place] [address] Family Medicine, Physician [address] [place], [place] [phone] Social History Tobacco Use Types Packs/Day Years [...] on filedocumented in this encounter Care Teams Structural Steel Erector Relationship Specialty Start Date End Date Austyn Lane MD [address] [place] [address] TATE Webb [address] PCP - General 04/12/17 11/14/22 documented as of this encounter
--- OUTSIDE RECORDS SUMMARY | 2025-07-23 15:32 | XMS_ITS | Encounter Summary ---
Author Organization [facility] Address [address] [place] [address] Phone Care Team Providers Care Esl Instructional Assistant Name Role Phone Austyn Lane MD Primary Care Provider [phone] Encounter Details Date Type Department Care Team (Late st Contact Info) Description 04/18/2017 Conversion Encounter [facility] [address] [place] [address] Social History Tobacco Use Types Packs/Day Years [...] on filedocumented in this encounter Care Teams Esl Instructional Assistant Relationship Specialty Start Date End Date Austyn Lane MD [address] [facility] [place] [address] PCP - General 04/12/17 11/14/22 documented as of this encounter
--- OUTSIDE RECORDS SUMMARY | 2025-07-23 15:32 | XMS_ITS | Clinical Summary ---
Author Organization [employer] Address [address] [facility] [address] [place] [address] Care Team Providers Care Project Development Director Name Role Phone Vazquez Louis Primary Care Provider [phone] Allergies No known active allergies Medications albuterol [...] tablet 11/10/19 23 Active Continuous Blood Gluc Braille Duplicating Machine Operator (FreeStyle Angi 2 Berry) deviceIndicatio ns:Type 2 diabetes mellitus with hypoglycemia [...] complication, without long-term current use of insulin ([facility]) 1 each every 14 (fourteen) [...] Encounters Date Type Department Care Team Description 07/22/2025 Refill [facility] [place] [address] Vazquez Louis ANP Non-seasonal allergic rhinitis, unspecified trigger 07/22/2025 Telephone [facility] [address] [place] [phone] Vazquez Louis ANP Medication Problem 2025 Refill [facility] [address] [place] [phone] Vazquez Louis ANP Type 2 diabetes mellitus with hypoglycemia without coma, without long-term current use of insulin ([facility]); Hypoglycemia 07/14/2025 Results Follow-Up [address] [address] Vazquez Louis ANP BI Mammogram Diagnostic Tomosynthesis Bilateral 07/09/[address] [address] Vazquez Louis ANP 07/07/[address] [address] Vazquez Louis ANP Type 2 diabetes mellitus with other specified complication, without long-term current use of insulin ([facility]) 06/18/2025 Orders Only GENERIC EXTERNAL DATA DEPARTMENT Provider, Generic External Data 06/04/2025 Telephone [facility] [place] [address] Vazquez Louis ANP 05/27/2025 2:30 PM EDT Office Visit [address] [address] Vazquez Louis ANP Cyst of skin of left breast (Primary Dx); Type 2 diabetes mellitus with other specified complication, without long-term current use of insulin ([facility]); Encounter for immunization 05/27/2025 Travel 05/25/2025 Telephone [facility] [address] [place], [place] [phone] Vazquez Louis ANP chart prep 05/05/2025 Telephone [facility] [address] [place], [place] [phone] Yanelis Norman RN from Last 3 Months Immunizations Immunization Administration [...] MMR 10/08/1996,10/24/1993 Meningococcal MCV4P ACYW-135 09/17/2006 Novel Giiggnxot-H3F5-76, all formulations 06/21/2009 Pneumococcal Conjugate PCV 20 [...] 2:15 PM EST Office Visit [facility] [address] [place], [place] [phone] Vazquez Louis, ITZEL [address] [place] [address] Health Maintenance Due Date Last Done Comments [...] Plan Patient has chronic kidney disease No Vazquez Louis ANP Patient has chronic kidney disease Care Plan Patient has chronic kidney disease No Yoly Scott, RN Patient has chronic kidney disease Care Plan Patient has chronic kidney disease No Danette Thomas RN Patient has chronic kidney disease Care Plan Patient has chronic kidney disease No Danette Thomas RN Procedures Procedure Name Priority Date/Time Associated Diagnosis [...] PM EST Narrative 07/14/2025 3:08 PM EST [facility] [address] [place], [place] [address] Ultrasound Report Signed Patient: Dolores Baltazar MR#: [id number] : 1990 Acct:[id number] Age/Sex: 34 / F ADM Date: 07/14/25 Loc: HO.MAMMO Attending Dr: Vazquez Louis NP Ordering Physician: VAZQUEZ LOUIS NP Date of Service: 07/14/25 Procedure(s): US Breast LT Limited Mamm Only Accession Number(s): [id number] cc: VAZQUEZ LOUIS NP Reason for Exam: [...] by: Yudi Ceballos DO 07/14/2025 03:05 PM [facility] Dictated By: Yudi Ceballos DO Signed By: <Electronically signed by Yudi Ceballos DO in OV> 07/14/25 1505 DD/ 1418 TD/TT: 07/14/25 1438 Kiln Puller: Procedure Note Donotuseinterpreter, Image - 07/14/[facility] [address] [place] [address] Ultrasound Report Signed Patient: Lou Baltazar#: [id number] : 1990Acct:[id number] Age/Sex: 34 / FADM Date: 07/14/25 Loc: HO.MAMMO Attending Dr: Vazquez Louis NP Ordering Physician: VAZQUEZ LOUIS NP Date of Service: 07/14/25 Procedure(s): US Breast LT Limited Mamm Only Accession Number(s): [id number] cc: VAZQUEZ LOUIS NP Reason for Exam: [...] by: Yudi Ceballos DO 07/14/2025 03:05 PM [facility] Dictated By: Yudi Ceballos DO Signed By: <Electronically signed by Yudi Ceballos DO in OV> 07/14/25 1505 DD/ 1418 TD/TT: 07/14/25 1438 Kiln Puller: us Vazquez Louis ANP IMG US PROCEDURES Final Result * BI Mammogram Diagnostic Tomosynthesis Bilateral (07/14/2025 2:10 PM EST) Anatomical Region Laterality Modality Breast Bilateral Mammography 07/14/2025 2:10 PM EST Narrative 07/14/2025 3:08 PM EST [facility] [address] [place] [address] Mammography Report Signed Patient: Dolores Baltazar MR#: [id number] : 1990 Acct:[id number] Age/Sex: 34 / F ADM Date: 07/14/25 Loc: HO.MAMMO Attending Dr: Vazquez Louis NP Ordering Physician: VAZQUEZ LOUIS NP Results: 2Benign Date of Service: 07/14/25 Follow Up: 1 Year From Orig inal Mammogram Procedure(s): MM tomosynthesis diagnostic BI Accession Number(s): [id number] cc: VAZQUEZ LOUIS NP Reason For Exam: [...] 07/14/2025 03:05 PM EST Dictated By: Yudi Cbeallos DO Signed By: <Electronically signed by Yudi Ceballos DO in OV> 07/14/25 1505 DD/ 1410 TD/TT: 07/14/25 1414 Kiln Puller: Procedure Note Donotuseinterpreter, Image - 07/14/2025 [facility] [address] [place] [address] Mammography Report Signed Patient: Lou Baltazar#: [id number] : 1990Acct:[id number] Age/Sex: 34 / FADM Date: 07/14/25 Loc: MAMMO Attending Dr: Vazquez Louis NP Ordering Physician: VAZQUEZ LOUIS NPResults: 2Benign Date of Service: 07/14/25Follow Up: 1 Year From Orig inal Mammogram Procedure(s): MM tomosynthesis diagnostic BI Accession Number(s): [id number] cc: VAZQUEZ LOUIS NP Reason For Exam: [...] 07/14/25 1505 DD/ 1410 TD/TT: 07/14/25 1414 Kiln Puller: [facility] BI PROCEDURES Final Result * (ABNORMAL) VITAMIN D 25-OH (D2 AND D3) (06/18/2025 2:14 PM EDT) Vitamin D, 25-OH, D2 <4 ng/mL [facility] Comment:This test was develo ped and its analytical performancecharacteristics have been determined by [email or web address]. It hasnot been cleared or approved by the U.S. Food and DrugAdministration. This assay has been validated pursuantto the CLIA regulations and is used for clinicalpurposes.THIS TEST WAS PERFORMED AT:[facility] [id number] [place] [address]LLHBHXDNOEL REYNOLDS MD,PHD Vitamin D, 25-OH, D3 14 ng/mL [facility] Comment:This test was develo ped and its analytical performancecharacteristics have been determined by [employer] [place], [place]. It hasnot been cleared or approved by the U.S. Food and DrugAdministration. This assay has been validated pursuantto the CLIA regulations and is used for clinicalpurposes. Vitamin D, 25-OH, Total 14(A) 30 - 100 ng/mL [facility] Comment:Vitamin D, 25-Hydrox y reports [...] = 30 ng/mL.For additional information, please refer tohttp://education.[employer]/faq/PIC460(This link is being provided for informational/educational purposes only.) 06/18/2025 2:14 PM EDT 06/18/2025 2:14 PM EDT us Generic External Data Provider LAB BLOOD ORDERAB LES Final Result Performing Organization Address [facility] Co de Phone Number [facility] [address] [place] [phone] * Vitamin B12 (Cobalamin) and Folate Panel, Serum (06/18/2025 2:14 PM EDT) Vitamin B12 231 200 - 900 pg/mL [facility] Comment:NORMAL 200-900 PG/ML INDETERMINATE 160-199 PG/ML DEFICIENT < 160 PG/ML Folate 9.4 > or = 4.0 ng/mL [facility] Comment:Reference Values:> o r = 4.0 ng/mL< 4.0 ng/mL suggests folate deficiency Methotrexate, aminopterin and folinic acid(leucovorin) are chemotherapeutic agents whose molecularstructures are similar to folate; therefore, the Architectfolate assay cannot be used for patients using these drugs. 06/18/2025 2:14 PM EDT 06/18/2025 2:14 PM EDT Generic External Data Provider LAB BLOOD ORDERAB LES Final Result Performing Organization Address [facility] Co de Phone Number [facility] [address] [place] [phone] * Tissue Transglutaminase (tTG) Antibody (IgG) (06/18/2025 2:14 PM EDT) Tissue Transglutaminase Antibody IgG <1.0 U/mL [facility] Comment:Value Interpretation ----- <15.0 Antibody not detected> or = 15.0 Antibody detectedTHIS TEST WAS PERFORMED AT:[facility] [address] [id number] PEREZ MD 06/18/2025 2:14 PM EDT 06/18/2025 2:14 PM EDT Generic External Data Provider LAB BLOOD ORDERAB LES Final Result Performing Organization Address [facility] de Phone Number [facility] [address] [place] [address] [phone] * Tissue Transglutaminase Antibody, IgA (06/18/2025 2:14 PM EDT) Pathologist [facility] Transglutaminase IgA <1.0 U/mL [facility] Comment:Value Interpretatio n----- <15.0 Antibody not detected> or = 15.0 Antibody detectedTHIS TEST WAS PERFORMED AT:[facility] [address] [address]VHHMJKARIE PEREZ MD 06/18/2025 2:14 PM EDT 06/18/2025 2:14 PM EDT [employer] External Data Provider LAB BLOOD ORDERAB LES Final Result Performing Organization Address [facility] Co de Phone Number [facility] [address] [place] [phone] * POCT Hgb A1c (05/27/2025 2:48 PM EDT) Hemoglobin A1C 5.7 4.0 - 5.7 % QC Media Lot # [id number] Lot# Expiration Date Blood 05/27/2025 2:48 PM EDT us Vazquez Louis ANP POINT OF CARE TEST ENTER/EDIT OR DERABLES Final Result * POCT Glucose (05/27/2025 2:46 PM EDT) Glucose Blood, POC 103 60 - 200 mg/dL QC Media Lot # [id number] Lot# Expiration Date Blood Capillary blood specimen / Unknown 05/27/2025 2:46 PM EDT us Vazquez Louis ANP POINT OF CARE TEST ENTER/EDIT OR DERABLES Final Result * (ABNORMAL) Lipid Panel, Standard (11/11/2024 10:49 AM EDT) Triglycerides 182(H) <150 mg/dL [facility] Comment:Desirable Triglyceri de: less than 150 mg/dLBorderline High Triglyceride 150-199 mg/dLHigh Triglyceride: 200-499 mg/dLVery High Triglyceride: greater than or equal to 5OO mg/dL Cholesterol 192 <200 mg/dL [facility] Comment:Desirable Cholestero l: less than 200 mg/dLBorderline High Cholesterol: 200-239 mg/dLHigh Cholesterol: greater than 239 mg/dL LDL Cholesterol Calculated 125(H) <100 mg/dL [facility] Comment:Desirable LDL: less than 100 mg/dLNear Optimal/Above Optimal LDL: 110- 129 mg/dLBorderline High LDL: 130-159 mg/dLHigh LDL: 160-189 mg/dLVery High LDL: greater than or equal to 190 mg/dL HDL Cholesterol 31(L) >40 mg/dL [facility] Comment:Desirable HDL: great er than 40 mg/dL Note: This HDL assay may give artificially low results in patients with liver disease. Blood Venous blood specimen / Unknown 11/11/2024 10:49 AM EDT 11/11/2024 10:49 AM EDT us Vazquez Louis ANP LAB BLOOD ORDERABLES Final Resul t Performing Organization Address [facility] Co de Phone Number [facility] [address] [place] [phone] * HPV E6/E7 RFLX BECCA 16 18/45 (02/07/2021 3:19 PM EDT) HPV 16 RNA [facility] HPV 18/45 RNA [facility] HPV E6 E7 ADD [facility] HPV mRNA E6/E7 rflx Not Detected Not Detected [facility] Comment: Methodology: Health Assessment And Treatment Teacher-Mediated Amplification This assay detects E6/E7 viral messenger RNA (mRNA) from 14 high-risk HPV types (16,18,31,33,35,39,45,51,52,56,58,59,66,68). The analytical performance characteristics of this assay have been determined by [employer]. The modifications have not been cleared or approved by the FDA. This assay has been validated pursuant to the CLIA regulations and is used for clinical purposes. For additional information, please refer to http://education.[employer]/faq/RRS918m5 (This link if provided for information/ educational purposes only.) THIS TEST WAS PERFORMED AT: [employer] [address] [place] [address],[place] [address] KARIE PEREZ MD 02/07/2021 3:19 PM EDT Giorgio Mock MD HISTORICAL/NON ORDERABLE LABS Fi nal Result Performing Organization Address City/[facility]/ZIP Co de Phone Number [facility] [address] * Hm Pap Smear (02/07/2021) Historical [...] 07/22/2025 Patient has chronic kidney disease 07/22/2025 Insurance [facility] C3 Care Teams Project Development Director Relationship Specialty Start Date End Date Vazquez Louis ANP [address] [place] [address] PCP - General Family Medicine 02/16/20
--- OUTSIDE RECORDS SUMMARY | 2025-07-23 15:32 | XMS_ITS | Clinical Summary ---
Author Organization [address] [facility] Address [address] [place] [address] Phone Care Team Providers Care Research Affiliate Name Role Phone RichardBernadine Irina KING Primary Care Provider [phone] Allergies No known active allergies Medications ascorbic [...] topic Insurance [place] - [place] Care Teams Research Affiliate Relationship Specialty Start Date End Date Bernadine Ramos NP [address] [place] [phone] PCP - General 10/02/23
[2025-07-23 15:33] VITALS: BP 118/60; PULSE 96; O2SAT 98; BMI 40.9
--- NOTE | 2025-07-23 15:33 | A.OFFVIS_ITS ---
Vital Signs 07/23/25 15:33 Height 5 ft 6 in Weight 253 lb 8.505 oz BMI 40.9 BP 118/60 Blood Pressure Location Rt brachial Position Sitting Pulse 96 Pulse Source Pulse Oximeter Pulse Oximetry (%) 98 Oxygen Delivery Method Room Air Intake Visit Reasons: Elevated TSH Dr Gibson PT Intake Note: Patient presents here today for Elevated TSH follow-up after completion of work-up. Last seen by Dr Paige MD: ~Workup Labs Completed on 07/08/2025 Bench Patternmaker Metal Required: No Accompanied by: Self / Same As Patient Allergies Seasonal Allergies Allergy (Verified 07/08/25 15:39) Sneezing HPI Comments Details: 34 YO Female with a PMHx of Graves disease status post total thyroidectomy when she was 17 years old, now with post surgical Hypothyroidism who is seen in F/U for hypothyroidism . Prior HPI She has a longstanding history of hypothyroidism with TSH >100. She initially reported good compliance, so she completed a levothyroxine abosorption test in our office in 2021. This revealed no issues with absorption as her FT4 raised appropriately. She then admitted to noncompliance with her medication. She then was compliant with tirosint 175 mcg PO daily and TSH improved significantly, but TSH remained approximately 10. Her dose of levothyroxine was increased to 250 mcg PO daily. She reports good compliance TSH was low recently in 2022 and levothyroxine was decreased to 200 mcg She was also diagnosed with reactive hypoglycemia based on her 4 hour OGTT revealing decline in her blood sugar from 149 to 66 at the 3-4 hour time point. She was recommended to follow a very low carbohydrate diet and reports hypoglycemia has resolved with this. Interval history 08/13/24 Labs 08/12/24 showed TSH of >100 and fee T4 <0.42 Patient tells me she has a nurse who observes her take 200 mcg of levothyroxine daily , around 9 AM, waits an hour before eats breakfast or drinks coffee Was on turlicity for the past year for weigth management and type 2 DM Started Ozempic maye on 1 mg weekly started in June or July 2024 Weight down by 20 lbs in the past month She is also taking omeprazole 40 mg daily at the same as her thyroid medication She is denying any fatigue , no cold intolerance , having diarrhea and rectal bleeding concerning for colitis saw GI pending EGD and colonoscopy in November 2023, reporting hair loss LMP 08/02/24, periods are regular Currently not sexually active, has IUD Interval history 11/12/23 08/13/2024: Levothyroxine increased to 225 mcg daily by taking 200+ 25 mcg pills daily 11/11/2024: TSH 60, free T4 1.23 Lost 15 lbs since Aug 2024 Reports still strict adherence it from OZempic Pending EGD and colonoscopy November 24 Interval history 02/11/2025 Currently on levothyroxine 250 mcg daily with 200+ 50 mcg pills, takes at 9 AM 02/10/2025: TSH greater than 100, free T4 low at 0.44 Nurse: couldnt speak with today Iron: takes it at night Laxatives and multivitamins : takes at 10 30 AM Nexium: afternoon Celiac disease ruled out back in 2021 with negative tissue transglutaminase levels Had a colonoscopy earlier this year in 2024, following with GI for chronic constipation, no microscopic colitis, nothing significant on colonoscopy or EGD, however she was started on mesalamine. Interval history 07/23/[address] Gibson on 02/11/2025. This is my 1st time seeing this patient 04/01/2025: TSH 54.50 a, free T4 0.55 07/08/2025 T: TSH 60.88, free T4 0.54 Taking she levothyroxine 225 mcg daily, in the AM, she waits at least 1 hour to take other meds or eat She endorses to have lower absorption of not only thyroid medications but also her vitamin D, iron, etc. She reports compliance with medication and she is supervised by a visiting nurse. She reports increase hair Weight: she is on Ozempic which is helping with weight loss Reports on and off cold intolerance Physical exam: General: Well appearing. NAD. Not Cushingoid or Acromegalic Neck/Thyroid: Thyroid not palpable, no nodules. Eyes: No conjunctival injection, not lid lag or proptosis CV: RRR, no murmur. No edema. Resp: Lungs clear to auscultation bilaterally Abdomen: Soft, nontender. nondistended Extremities/Neuro: No weakness or tremor of outstretched hands Diabetic Foot Exam: sensation to monofilament exam Labs: Laboratory Tests 11/02/22 11/02/22 11/02/22 07:49 07:49 07:49 Sodium 140 Potassium 3.9 Creatinine 0.69 Estimated GFR > 60 Hemoglobin A1c % 6.0 Glucose Tolerance Insulin Level 22 Proinsulin C-Peptide Beta-Hydroxybutyrate/Acetoacetate TSH 0.62 Free T4 1.25 DHEA Sulfate Insulin-like GF II Random Cortisol ACTH 34 11/02/22 11/02/22 11/02/22 07:49 07:49 07:50 Sodium Potassium Creatinine Estimated GFR Hemoglobin A1c % Glucose Tolerance Insulin Level Proinsulin 16.4 C-Peptide 3.53 Beta-Hydroxybutyrate/Acetoacetate 0.05 TSH Free T4 DHEA Sulfate 85 Insulin-like GF II 458 Random Cortisol 9.2 ACTH Laboratory Tests 12/13/23 08/12/24 11:25 15:43 TSH 1.16 > 100.00 H Free T4 0.94 < 0.42 L Laboratory Tests 08/12/24 11/11/24 15:43 10:49 TSH > 100.00 H 60.00 H Free T4 < 0.42 L 1.23 Laboratory Tests 11/11/24 02/10/25 10:49 15:16 TSH 60.00 H > 100.00 H Free T4 1.23 0.44 L Laboratory Tests 04/01/25 07/08/25 13:51 16:09 TSH 54.58 H 60.88 H Free T4 0.55 L 0.54 L [facility] Medical History Reactive hypoglycemia Hypoglycemia Constipation Post-surgical hypothyroidism Elevated liver enzymes Varicose veins of bilateral lower extremities with other complications Obstructive sleep apnea Rheumatoid arthritis Depression ADHD Hypothyroid Morbid obesity Surgical History History of colonoscopy H/O prior ablation treatment (~2017) History of vein stripping (~2017) Hx of thyroidectomy Family History Father No problems noted. Mother No problems noted. Brother No problems noted. Brother No problems noted. Brother No problems noted. Other No family history of cancer Social History Household Members: Family Household Members Other:: parents Housing: House Are you a primary gericare aide teacher to a significant other at home: No Do you presently have visiting nurse or other home services: No Alcohol intake: never Patient Tobacco Use Status: Never used Tobacco service: No Current occupational status: disabled Female Reproductive History Menstrual Age of Menarche: 13 Physical Exam Vital Signs: Last Vital Signs Pulse 96 07/23/25 15:33 BP 118/60 07/23/25 15:33 Pulse Ox 98 07/23/25 15:33 Oxygen Delivery Method Room Air 07/23/25 15:33 BMI result Body Mass Index 40.9 Assessment & Plan Assessment & Plan (1) Hypothyroid: Code(s): E03.9 - Hypothyroidism, unspecified Category: Medical Qualifiers: Hypothyroidism type: acquired Qualified Code(s): E03.9 - H ypothyroidism, unspecified Plan: 34-year-old female with past medical history significant for Graves disease status post total thyroidectomy when she was 17 years old, now with postsurgical hypothyroidism who is coming today for follow up. She is currently on 250 mcg of levothyroxine daily. She has had previous issues with non adherence to the medication resulting in consistently elevated TSH levels of greater than 100. Labs from December 2023 showed she was biochemically euthyroid on the 200 mcg of Tirosint with a TSH of 1.16 and free T4 of 0.94, at some point Tirosint was not being covered by insurance so she was switched back to generic levothyroxine. then labs from 08/12/2024 show her TSH is greater than 100 and free T4 is less than 0.42. Her weight based dosing currently comes to 200 mcg of levothyroxine daily. 08/13/2024: Levothyroxine increased to 225 mcg daily by taking 200+ 25 mcg pills daily 11/11/2024: TSH 60, free T4 1.23 She endorses that is taking her medication every day and she has a nurse who monitors medication administration from Saturday to Saturday and then her father who is also her DRAWING IN MACHINE TENDER HELPER on Saturday and Saturday. I reinforced the importance of compliance to medication as high TSH can result in myxedema coma and . Patient endorsed that she realizes the importance of taking medication regularly and she has been taking it regularly. Patient reports that she never got Tyrosint solution and that Tyrosynt capsule was not approved by insurance. I will try prescribing the Levothyroxine oral s olution as it has better absorption. Given her challenges with absorption, I think it is reasonable to also inrease the dose to 250 mcg daily. If not approve, we will try to send a letter of necessity for get approval. She will follow up with her GI doctor for management of her colitis. She is aware that if colitis improved, she might have improved levothyroxine absorption and decrease dose need. She will let us know if this happens. Plan: -Change to Tirosint oral solution 250 mcg daily () -repeat blood work in 6 weeks -follow up in 3 months (2) Elevated TSH: Code(s): R79.89 - Other specified abnormal findings of blood chemistry Category: Medical Plan: See above Plan I spent 30 minutes in reviewing the record, seeing the patient and documenting in the medical record. Orders: Orders TSH reflex Free T4 6 Weeks E03.9 - Hypothyroidism, unspecified Medications: New levothyroxine Take 1.25 ml (250 mcg) daily from food or medication by at least 1 hour 250 mcg (1.25 mL) PO DAILY 30 mL 5RF E03.9 - Hypothyroidism, unspecified Discontinued levothyroxine (Synthroid) Take 200 mcg daily along with 50 mcg daily tablet for a total of 250 mcg daily Discontinued Reason: Doctor's Order 200 mcg PO DAILY 90 tabs 4RF levothyroxine (Synthroid) Take 200 mcg daily along with 50 mcg daily tablet for a total of 250 mcg daily Discontinued Reason: Doctor's Order 50 mcg PO DAILY 90 tabs 4RF Coding Level of Care Code Est Pt Level 4 (76840) Diagnoses Acquired hypothyroidism E03.9 Hypothyroidism type: acquired Elevated TSH R79.89
== END 2025-07-23 16:23 | disposition home or self-care (01) ==
LOC: HO.ENCR 15:26
PROVIDERS: Visit Provider Student in an Organized Health Care Education/Training Program
DX: E03.9 Hypothyroidism, unspecified (principal); R79.89 Other specified abnormal findings of blood chemistry
CPT/HCPCS: 99214

== ENCOUNTER → 2025-07-23 15:26 | Outpatient (BNVA) | payer MEDICAID, SELFPAY | PROVIDERS: Visit Provider Student in an Organized Health Care Education/Training Program | DX: E03.9 Hypothyroidism, unspecified (principal); R79.89 Other specified abnormal findings of blood chemistry | CPT/HCPCS: 99212 ==

== ENCOUNTER 2025-08-03 12:37 | Outpatient (REF) | payer MEDICAID, SELFPAY ==
[2025-08-03 18:49] LABS: Erythrocyte Sedimentation Rate 58 MM/HR (0-20)
[2025-08-04 18:48] LABS: Antibody to SS-A Antigen <1.0 NEG AI (<1.0 NEG); Antibody to SS-B Antigen <1.0 NEG AI (<1.0 NEG); SM/Ribonucleoprotein Ab <1.0 NEG AI (<1.0 NEG); Smith Protein <1.0 NEG AI (<1.0 NEG)
[2025-08-04 21:29] LABS: Anti Nuclear Antibody Screen POSITIVE (NEGATIVE); Anti Nuclear Antibody Titer 1:160 titer
[2025-08-07 12:28] LABS: Centromere Protein A Ab <11 SI (<11); Centromere Protein B Ab <11 SI (<11); Fibrillarin Ab <11 SI (<11); PM SCL 100 Ab <11 SI (<11); PM SCL 75 Ab <11 SI (<11); RNA Polymerase III RP11 Ab <11 SI (<11); RNA Polymerase III RP155 Ab <11 SI (<11); SCL-70 Extractable Nuclear Ab <11 SI (<11); Th-To Ab <11 SI (<11); U1 SNRNP RNP 70KD <11 SI (<11); U1 SNRNP RNP A <11 SI (<11); U1 SNRNP RNP C <11 SI (<11)
[2025-08-07 15:02] LABS: HLA B27 Negative (Negative)
[2025-08-09 08:57] LABS: DNAds, Crithidia Antibody Negative (Negative)
== END 2025-08-03 12:38 | disposition home or self-care (01) ==
LOC: HO.HKASLDS 12:37
PROVIDERS: PCP Nurse Practitioner Primary Care; Visit Provider Student in an Organized Health Care Education/Training Program
DX: E03.9 Hypothyroidism, unspecified (principal); M08.80 Other juvenile arthritis, unspecified site; R79.89 Other specified abnormal findings of blood chemistry; M25.50 Pain in unspecified joint; R76.0 Raised antibody titer; Z01.84 Encounter for antibody response examination
CPT/HCPCS: 36415; 82550; 84182; 85652; 86038; 86039; 86140; 86160; 86200; 86225; 86235; 86255; 86431; 86812; 99202

== ENCOUNTER 2025-08-03 12:37 | Outpatient (AMB) | payer MEDICAID, SELFPAY ==
--- NOTE | 2025-08-03 12:40 | MHC.OFFVIS ---
Vital Signs 08/03/25 12:41 Height 5 ft 6 in Weight 252 lb 6.868 oz BMI 40.7 BP 120/72 Blood Pressure Location Rt brachial Position Sitting Pulse 92 Pulse Source Pulse Oximeter Pulse Oximetry (%) 99 Oxygen Delivery Method Room Air Intake Visit Reasons: RA Intake Note: Patient is a new patient, externally referred by Bernadine Ramos NP from [facility] for Rheumatoid Arthritis. Patient has had RA from 5 years, does not take anything for it. Pile Header Required: No Accompanied by: Father Allergies Seasonal Allergies Allergy (Verified 08/03/25 12:47) Sneezing HPI Comments Details: 35-year-old female with a past medical history of hypothyroidism, iron deficiency anemia obstructive sleep apnea presenting as a new patient for evaluation of joint pain, primarily rule out rheumatoid arthritis. She also has ongoing constipation and is on Ozempic and has lost 70 pounds. She states she has joint pian in the hands, in the whole hands, and weak disabilities caregiver strenght. she also has pain in the arms. She also pain in the lower back and hips.There is also intermittent pain in the knees and ankles. she has mornng stiffness for 5 to 10minutes and is relieved by hot shower, no pain killers she takes. no photosensitivity, no miscarriage, no blood clot no oral ulcer she also endorses hair fall, she has cramps in legs. no raynauds, no dysphagia, no plerutic chest pain, no skin rashes She feels fatigued PATIENT REPORTS THAT SHE HAS A HISTORY OF BEING DIAGNOSED WITH BIANCA WHEN she was 5 years old for joint pain in the feet ankles and hands. At that time she was maintained on Naprosyn. She reports that at 23 years of age she had then stopped seeing the pediatric agricultural equipment sales manager at [facility] and did not follow up with the adult agricultural equipment sales manager she has intermittent tingling in the hands and feet. vitamin D level is low 4 and her TSH is 60.0 she is on Levothroxyine and vitamin d oral supplementation FH: adopted PHYSICAL EXAM General: Comfortable CVS: RRR Respiratory: clear to auscultation bilaterally. Good respiratory effort Skin: No lesions seen MSK: Full range of motion of the hands, however weak disabilities caregiver strength bilaterally. No active synovitis noted. Tenderness in the PIPs noted. Full range of motion noted in the shoulders. Full range of motion in the hips. No active synovitis noted in any of the joints. [facility] Medical History (Updated 08/03/25 @ 13:30 by Deisy Navarro MD) Reactive hypoglycemia Hypoglycemia Constipation Post-surgical hypothyroidism Elevated liver enzymes Varicose veins of bilateral lower extremities with other complications Obstructive sleep apnea Rheumatoid arthritis Depression ADHD Hypothyroid Morbid obesity Surgical History (Updated 08/03/25 @ 12:49 by Zaira Garcia CMA) H/O knee surgery History of colonoscopy H/O prior ablation treatment (~2017) History of vein stripping (~2017) Hx of thyroidectomy Family History Father No problems noted. Mother No problems noted. Brother No problems noted. Brother No problems noted. Brother No problems noted. Other No family history of cancer Social History Household Members: Family Household Members Other:: parents Housing: House Are you a primary day care assistant to a significant other at home: No Do you presently have visiting nurse or other home services: No Alcohol intake: never Patient Tobacco Use Status: Never used Tobacco service: No Current occupational status: disabled Female Reproductive History Menstrual Age of Menarche: 13 Physical Exam Vital Signs: Last Vital Signs Pulse 92 08/03/25 12:41 BP 120/72 08/03/25 12:41 Pulse Ox 99 08/03/25 12:41 Oxygen Delivery Method Room Air 08/03/25 12:41 BMI result Body Mass Index 40.7 Assessment & Plan Assessment & Plan (1) Hypothyroid: Code(s): E03.9 - Hypothyroidism, unspecified Category: Medical Qualifiers: Hypothyroidism type: acquired Qualified Code(s): E03.9 - Hypothyroidism, unspecified (2) BIANCA (juvenile idiopathic arthritis): Code(s): M08.80 - Other juvenile arthritis, unspecified site Category: Medical (3) Low vitamin D level: Code(s): R79.89 - Other specified abnormal findings of blood chemistry Category: Medical (4) Polyarthralgia: Code(s): M25.50 - Pain in unspecified joint Category: Medical Plan 35-year-old female with a past medical history of hypothyroidism, iron deficiency anemia obstructive sleep apnea presenting as a new patient for evaluation of joint pain, primarily rule out rheumatoid arthritis This patient has a history of BIANCA since she was 5 years old, she was on Naprosyn, last visit was a 23 years of age. She also has low vitamin-D levels and high TSH level, currently she is on vitamin-D and levothyroxine supplementation. Based on her history blood work and physical exam, we will rule out inflammatory arthritis like rheumatoid arthritis, SLE, and other connective tissue disease versus other causes of arthritis, including hypothyroidism and low vitamin-D levels which can cause joint pain fatigue which this patient is experiencing. I will complete the workup including ESR CRP, RF, CCP, CK DICK and DICK subsets. I will also do hand x-rays and SI joint x-rays. I will follow up with the patient 3 weeks to discuss the results of the blood work and imaging Orders: Orders Erythrocyte Sedimentation Rate Today R76.0 - Raised antibody titer Rheumatoid Factor Today R76.0 - Raised antibody titer Cyclic Citrullinated Peptide Today R76.0 - Raised antibody titer XR sacroiliac joint 1-2V Today M25.50 - Pain in unspecified joint Anti DNA DS Antibody Today R76.0 - Raised antibody titer DNA Double Stranded-Crithidia Today R76.0 - Raised antibody titer Complement C4 Today R76.0 - Raised antibody titer C Reactive Protein Today R76.0 - Raised antibody titer Creatine Kinase Total Today E03.9 - Hypothyroidism, unspecified, M08.80 - Other juvenile arthritis, unspecified site, M25.50 - Pain in unspecified joint, R79.89 - Other specified abnormal findings of blood chemistry HLA B27 Today M25.50 - Pain in unspecified joint XR Hand Samuel 2V Today M25.50 - Pain in unspecified joint DICK Reflex Titer and Pattern Today R76.0 - Raised antibody titer Complement C3 Today R76.0 - Raised antibody titer Scleroderma 12 Panel Today R76.0 - Raised antibody titer Sjogren's Antibodies Today R76.0 - Raised antibody titer Sm Sm/POLICE STENOGRAPHER Antibodies Today R76.0 - Raised antibody titer Coding Level of Care Code New Pt Level 4 (85281) Diagnoses Acquired hypothyroidism E03.9 Hypothyroidism type: acquired BIANCA (juvenile idiopathic arthritis) M08.80 Low vitamin D level R79.89 Polyarthralgia M25.50
[2025-08-03 12:41] VITALS: BP 120/72; PULSE 92; O2SAT 99; BMI 40.7
--- OUTSIDE RECORDS SUMMARY | 2025-08-03 14:34 | XMS_ITS | Clinical Summary ---
Author Organization [facility] Address [address] [place] [address] Phone Care Team Providers Care Endoscopy Technician Name Role Phone RichardBernadine Irina KING Primary Care Provider [phone] Allergies No known active allergies Medications ascorbic [...] topic Insurance MEDICAID - [place] Care Teams Endoscopy Technician Relationship Specialty Start Date End Date Bernadine Ramos NP [address] [place] [phone] PCP - General 10/02/23
--- OUTSIDE RECORDS SUMMARY | 2025-08-03 14:34 | XMS_ITS | Encounter Summary ---
Author Organization [facility] Address [address] [place] [phone] Phone Care Team Providers Care Digital Pre Press Operator Name Role Phone Austyn Lane MD Primary Care Provider Encounter Details Date Type Department Care Team (Late st Contact Info) Description 11/10/2009 Documentation [facility] [address] [place] [address] Family Medicine, Physician [address] [place], [place] [phone] Social History Tobacco Use Types Packs/Day Years [...] on filedocumented in this encounter Care Teams Digital Pre Press Operator Relationship Specialty Start Date End Date Austyn Lane MD [address] [place] [address] TATE Webb [address] PCP - General 04/12/17 11/14/22 documented as of this encounter
--- OUTSIDE RECORDS SUMMARY | 2025-08-03 14:34 | XMS_ITS | Encounter Summary ---
Author Organization [facility] Address [address] [place] [address] Phone Care Team Providers Care Remote Broadcast Technician Name Role Phone Austyn Lane MD Primary Care Provider [phone] Encounter Details Date Type Department Care Team (Late st Contact Info) Description 12/01/2012 Documentation [facility] Family Medicine [address] [place] [address] Family Medicine, Physician [address] [place], [place] [phone] Social History Tobacco Use Types Packs/Day Years [...] on filedocumented in this encounter Care Teams Remote Broadcast Technician Relationship Specialty Start Date End Date Austyn Lane MD [address] [place] [address] TATE Webb [address] PCP - General 04/12/17 11/14/22 documented as of this encounter
--- OUTSIDE RECORDS SUMMARY | 2025-08-03 14:34 | XMS_ITS | Encounter Summary ---
Author Organization [facility] Address [address] [place] [phone] Phone Care Team Providers Care Shower Enclosure Installer Name Role Phone Austyn Lane MD Primary Care Provider [phone] Encounter Details Date Type Department Care Team (Late st Contact Info) Description 09/26/2012 Documentation [facility] [place] Family Medicine [address] [place] [address] Family Medicine, Physician [address] [place], [place] [phone] Social History Tobacco Use Types Packs/Day Years [...] on filedocumented in this encounter Care Teams Shower Enclosure Installer Relationship Specialty Start Date End Date Austyn Lane MD [address] [place] [address] TATE Webb [address] PCP - General 04/12/17 11/14/22 documented as of this encounter
--- OUTSIDE RECORDS SUMMARY | 2025-08-03 14:34 | XMS_ITS | Encounter Summary ---
Author Organization [facility] Address [address] [place] [id number] Phone Care Team Providers Care Container Filler Name Role Phone Austyn Lane MD Primary Care Provider [phone] Encounter Details Date Type Department Care Team (Late st Contact Info) Description 09/29/2012 Documentation [facility] [place] [facility] [address] [place] [address] Family Medicine, Physician [address] [place], [place] [phone] Social History Tobacco Use Types Packs/Day Years [...] on filedocumented in this encounter Care Teams Container Filler Relationship Specialty Start Date End Date Austyn Lane MD [address] [place] [address] TATE Webb [address] PCP - General 04/12/17 11/14/22 documented as of this encounter
--- OUTSIDE RECORDS SUMMARY | 2025-08-03 14:34 | XMS_ITS | Encounter Summary ---
Author Organization [facility] Address [address] [place] [address] Phone Care Team Providers Care Scissors Sharpener Name Role Phone Austyn Lane MD Primary Care Provider [phone] Encounter Details Date Type Department Care Team (Late st Contact Info) Description 04/18/2017 Conversion Encounter [facility] [address] [facility] [place] [address] Social History Tobacco Use Types Packs/Day Years [...] on filedocumented in this encounter Care Teams Scissors Sharpener Relationship Specialty Start Date End Date Austyn Lane MD [address] [place] [address] PCP - General 04/12/17 11/14/22 documented as of this encounter
--- OUTSIDE RECORDS SUMMARY | 2025-08-03 14:34 | XMS_ITS | Clinical Summary ---
Author Organization [employer] Address [address] [facility] 7t [place] [address] Care Team Providers Care Aerosol Line Operator Name Role Phone Vazquez Louis Primary Care Provider [phone] Allergies No known active allergies Medications albuterol [...] tablet 11/10/19 23 Active Continuous Blood Gluc Gas Welding Equipment Mechanic (FreeStyle Angi 2 Dunlap) deviceIndicatio ns:Type 2 diabetes mellitus with hypoglycemia [...] DAYS. 2 each 11 07/10/20 24 Active omeprazole (PriLOSEC) [address] capsuleIndicati ons:Heartburn TAKE 1 CAPSULE BY MOUTH TWICE A DAY BEFORE A MEAL 180 capsule 1 09/22/19 25 Active Ascorbic Acid (vitamin C) 250 MG tabletIndicatio ns:Iron deficiency anemia, unspecified iron deficiency anemia type TAKE 1 TABLET BY MOUTH EVERY DAY WITH IRON TABLET 90 tablet 3 10/15/19 Active Emollient (Eucerin Advanced Repair) creamIndication s:Callus,Dry skin Apply twice daily to clean, dry feet 454 g 11 11/04/19 Active ferrous sulfate 325 (65 Fe) MG [...] complication, without long-term current use of insulin ([facility]) 1 each every 14 (fourteen) days. 2 each 02/03/20 Active esomeprazole (NexIUM) [address] capsule Take 40 mg by mouth Once per day. Active famotidine (Pepcid) 20 MG tablet Take 20 mg by mouth at bedtime. Active Apriso 0.375 g 24 hr capsule Take 1.5 g by mouth in the morning. 12/12/19 Active montelukast (Singulair) 10 MG tablet TAKE 1 TABLET BY MOUTH EVERY DAY IN THE EVENING 90 tablet 3 03/26/20 25 Active Ozempic, 2 MG/DOSE, 8 MG/3ML solution pen-injectorInd ications:Type 2 diabetes mellitus with other specified complication, without long-term current use of insulin ([facility]) INJECT 0.75 ML (2 MG) UNDER THE SKIN 1 (ONE) TIME PER WEEK. 3 mL 2 07/08/20 25 Active fluticasone (Flonase) 50 MCG/ACT nasal sprayIndication s:Non-seasonal allergic rhinitis, unspecified trigger TAKE 1-2 SPRAYS EACH NOSTRIL 1-2 TIMES DAILY NEEDED FOR ALLERGIES 48 mL 2 07/23/20 25 Active fluticasone (Flonase) 50 MCG/ACT nasal sprayIndication s:Non-seasonal allergic rhinitis, unspecified trigger TAKE 1-2 SPRAYS EACH NOSTRIL 1-2 TIMES DAILY NEEDED FOR ALLERGIES 48 mL 2 07/24/20 24 2024 Discontinued Ozempic, 2 MG/DOSE, 8 MG/3ML solution pen-injectorInd ications:Type 2 diabetes mellitus with other specified complication, without long-term current use of insulin ([facility]) INJECT 0.75 ML (2 MG) UNDER THE [...] Obstructive sleep apnea syndrome 06/12/2018 Rheumatoid arthritis ([facility]) 06/12/2018 Varicose veins of lower extremity 06/12/2018 Autoimmune thyroiditis 06/12/2018 Acquired hypothyroidism 04/14/2018 Anxiety 04/14/2018 Menstrual bleeding problem 04/14/2018 Encounters Date Type Department Care Team Description 07/22/2025 Refill [facility] [address] [place] [address] Vazquez Louis ANP Non-seasonal allergic rhinitis, unspecified trigger 07/22/[address] [address] Vazquez Louis ANP Medication Problem 2025 Refill [facility] [address] [place] [address] Vazquez Louis ANP Type 2 diabetes mellitus with hypoglycemia without coma, without long-term current use of insulin ([facility]); Hypoglycemia 07/14/2025 Results Follow-Up [address] [address] Vazquez Louis ANP BI Mammogram Diagnostic Tomosynthesis Bilateral 07/09/2025 Telephone [facility] [address] [place] [address] Vazquez Louis ANP 07/07/2025 Refill [facility] [address] [place] [address] Vazquez Louis ANP Type 2 diabetes mellitus with other specified complication, without long-term current use of insulin ([facility]) 06/18/2025 Orders Only GENERIC EXTERNAL DATA DEPARTMENT Provider, Generic External Data 06/04/2025 Telephone [facility] [address] [place] [address] Vazquez Louis ANP 05/27/2025 2:30 PM EDT Office Visit [facility] [address] [place] [address] Vazquez Louis ANP Cyst of skin of left breast (Primary Dx); Type 2 diabetes mellitus with other specified complication, without long-term current use of insulin ([facility]); Encounter for immunization 05/27/2025 Travel 05/25/2025 Telephone [facility] [address] [place] [address] Vazquez Louis ANP chart prep 05/05/[address] [address] Yanelis Norman RN from Last 3 Months [...] MMR 10/08/1996,10/24/1993 Meningococcal MCV4P ACYW-135 09/17/2006 Novel [id number], all formulations 06/21/2009 Pneumococcal Conjugate PCV 20 [...] with others, in a hotel, in a correction, living outside on the street, on a [...] Description 08/20/2025 2:15 PM EST Office Visit [facility] [address] [place], [place] [phone] Vazquez Louis, ANP [address] [place] [address] Health Maintenance Due Date Last Done Comments [...] Patient has chronic kidney disease No Danette Thomas, RN Patient has chronic kidney disease Care Plan Patient has chronic kidney disease Danette Pepe RN Procedures Procedure Name Priority Date/Time Associated [...] PM EST Narrative 07/14/2025 3:08 PM EST [facility] [address] [place] [address] Ultrasound Report Signed Patient: Dolores Baltazar MR#: [id number] : 1990 Acct:[id number] Age/Sex: 34 / F ADM Date: 07/14/25 Loc: HO.MAMMO Attending Dr: Vazquez Louis NP Ordering Physician: VAZQUEZ LOUIS NP Date of Service: 07/14/25 Procedure(s): US Breast LT Limited Mamm Only Accession Number(s): [id number] cc: VAZQUEZ LOUIS NP Reason for Exam: [...] Yudi Ceballos DO 07/14/2025 03:05 PM EST RP Dictated By: Yudi Ceballos DO Signed By: <Electronically signed by Yudi Ceballos DO in OV> 07/14/25 1505 DD/ 1418 TD/TT: 07/14/25 1438 Liquor Gallery Operator: Procedure Note Donotuseinterpreter, Image - 07/14/2025 [facility] [address] [place], [place] [address] Ultrasound Report Signed Patient: Lou Baltazar#: [id number] : 1990Acct:[id number] Age/Sex: 34 / FADM Date: 07/14/25 Loc: HO.MAMMO Attending Dr: Vazquez Louis NP Ordering Physician: VAZQUEZ LOUIS NP Date of Service: 07/14/25 Procedure(s): US Breast LT Limited Mamm Only Accession Number(s): [id number] cc: VAZQUEZ LOUIS NP Reason for Exam: [...] by: Yudi Ceballos DO 07/14/2025 03:05 PM [facility] Dictated By: Yudi Ceballos DO Signed By: <Electronically signed by Yudi Ceballos DO in OV> 07/14/25 1505 DD/ 1418 TD/TT: 07/14/25 1438 Liquor Gallery Operator: us Vazquez Louis ANP IMG US PROCEDURES Final Result * BI Mammogram Diagnostic Tomosynthesis Bilateral (07/14/2025 2:10 PM EST) Anatomical Region Laterality Modality Breast Bilateral Mammography 07/14/2025 2:10 PM EST Narrative 07/14/2025 3:08 PM EST [facility] [address] [place] [address] Mammography Report Signed Patient: Dolores Baltazar MR#: [id number] : 1990 Acct:[id number] Age/Sex: 34 / F ADM Date: 07/14/25 Loc: MAMMO Attending Dr: Vazquez Louis NP Ordering Physician: VAZQUEZ LOUIS NP Results: 2Benign Date of Service: 07/14/25 Follow Up: 1 Year From Orig ina Mammogram Procedure(s): MM tomosynthesis diagnostic BI Accession Number(s): [id number] cc: VAZQUEZ LOUIS NP Reason For Exam: [...] by: Yudi Ceballos DO 07/14/2025 03:05 PM [facility] Dictated By: Yudi Ceballos DO Signed By: <Electronically signed by Yudi Ceballos DO in OV> 07/14/25 1505 DD/ 1410 TD/TT: 07/14/25 1414 Liquor Gallery Operator: Procedure Note Donotuseinterpreter, Image - 07/14/2025 [facility] [address] [place] [address] Mammography Report Signed Patient: Lou Baltazar#: [id number] : 1990Acct:[id number] Age/Sex: 34 / FADM Date: 07/14/25 Loc: HO.MAMMO Attending Dr: Vazquez Louis NP Ordering Physician: VAZQUEZ LOUIS NPResults: 2Benign Date of Service: 07/14/25Follow Up: 1 Year From [facility] ina Mammogram Procedure(s): MM tomosynthesis diagnostic BI Accession Number(s): [id number] cc: VAZQUEZ LOUIS NP Reason For Exam: [...] Yudi Ceballos DO 07/14/2025 03:05 PM EST RP Workstation: PA Semi Dictated By: Yudi Ceballos DO Signed By: <Electronically signed by Yudi Ceballos DO in OV> 07/14/25 1505 DD/ 1410 TD/TT: 07/14/25 1414 Liquor Gallery Operator: [facility] BI PROCEDURES Final Result * (ABNORMAL) VITAMIN D 25-OH (D2 AND D3) (06/18/2025 2:14 PM EDT) Vitamin D, 25-OH, D2 <4 ng/mL [facility] Comment:This test was develo ped and its analytical performancecharacteristics have been determined by [employer] [place], [place]. It hasnot been cleared or approved by the U.S. Food and DrugAdministration. This assay has been validated pursuantto the CLIA regulations and is used for clinicalpurposes.THIS TEST WAS PERFORMED AT:[employer] [id number] [place] [address]OIZFMZB W. MASON,MD,PHD Vitamin D, 25-OH, D3 14 ng/mL [facility] Comment:This test was develo ped and its analytical performancecharacteristics have been determined by [employer] [place], [place]. It hasnot been cleared or approved by the U.S. Food and DrugAdministration. This assay has been validated pursuantto the CLIA regulations and is used for clinicalpurposes. Vitamin D, 25-OH, Total 14(A) 30 - 100 ng/mL [facility] Comment:Vitamin D, 25-Hydrox y reports [...] = 30 ng/mL.For additional information, please refer tohttp://education.[employer]/faq/ZLD920(This link is being provided for informational/educational purposes only.) 06/18/2025 2:14 PM EDT 06/18/2025 2:14 PM EDT us Generic External Data Provider LAB BLOOD ORDERAB LES Final Result [facility] [address] [place] [phone] * Vitamin B12 (Cobalamin) and Folate Panel, Serum (06/18/2025 2:14 PM EDT) Vitamin B12 231 200 - 900 pg/mL [facility] Comment:NORMAL 200-900 PG/ML INDETERMINATE 160-199 PG/ML DEFICIENT < 160 PG/ML Folate 9.4 > or = 4.0 ng/mL [facility] Comment:Reference Values:> o r = 4.0 ng/mL< 4.0 ng/mL suggests folate deficiency Methotrexate, aminopterin and folinic acid(leucovorin) are chemotherapeutic agents whose molecularstructures are similar to folate; therefore, the Architectfolate assay cannot be used for patients using these drugs. 06/18/2025 2:14 PM EDT 06/18/2025 2:14 PM EDT us Generic External Data Provider LAB BLOOD ORDERAB LES Final Result Performing Organization Address [facility] Co de Phone Number [facility] [address] [place] [phone] * Tissue Transglutaminase (tTG) Antibody (IgG) (06/18/2025 2:14 PM EDT) Tissue Transglutaminase Antibody IgG <1.0 U/mL [facility] Comment:Value Interpretation ----- <15.0 Antibody not detected> or = 15.0 Antibody detectedTHIS TEST WAS PERFORMED AT:[facility] [place] [phone] PEREZ MD 06/18/2025 2:14 PM EDT 06/18/2025 2:14 PM EDT Generic External Data Provider LAB BLOOD ORDERAB LES Final Result Performing Organization Address [facility] de Phone Number [facility] [address] [place] [phone] * Tissue Transglutaminase Antibody, IgA (06/18/2025 2:14 PM EDT) Transglutaminase IgA <1.0 U/mL [facility] Comment:Value Interpretation ----- <15.0 Antibody not detected> or = 15.0 Antibody detectedTHIS TEST WAS PERFORMED AT:[facility] [place] [phone] PEREZ MD 06/18/2025 2:14 PM EDT 06/18/2025 2:14 PM EDT Generic External Data Provider LAB BLOOD ORDERAB LES Final Result Performing Organization Address [facility] Co de Phone Number [facility] [address] [place] [phone] * POCT Hgb A1c (05/27/2025 2:48 PM EDT) Hemoglobin A1C 5.7 4.0 - 5.7 % QC Media Lot # [id number] Lot# Expiration Date Blood 05/27/2025 2:48 PM EDT [facility] Louis [facility] POINT OF CARE TEST ENTER/EDIT OR DERABLES Final Result * POCT Glucose (05/27/2025 2:46 PM EDT) Glucose Blood, POC 103 60 - 200 mg/dL QC Media Lot # [id number] Lot# Expiration Date Blood Capillary blood specimen / Unknown 05/27/2025 2:46 PM EDT Vazquez Louis [facility] POINT OF CARE TEST ENTER/EDIT OR DERABLES Final Result * (ABNORMAL) Lipid Panel, Standard (11/11/2024 10:49 AM EDT) Triglycerides 182(H) <150 mg/dL [facility] Comment:Desirable Triglyceri de: less than 150 mg/dLBorderline High Triglyceride 150-199 mg/dLHigh Triglyceride: 200-499 mg/dLVery High Triglyceride: greater than or equal to 5OO mg/dL Cholesterol 192 <200 mg/dL [facility] Comment:Desirable Cholestero l: less than 200 mg/dLBorderline High Cholesterol: 200-239 mg/dLHigh Cholesterol: greater than 239 mg/dL LDL Cholesterol Calculated 125(H) <100 mg/dL [facility] Comment:Desirable LDL: less than 100 mg/dLNear Optimal/Above Optimal LDL: 110- 129 mg/dLBorderline High LDL: 130-159 mg/dLHigh LDL: 160-189 mg/dLVery High LDL: greater than or equal to 190 mg/dL HDL Cholesterol 31(L) >40 mg/dL [facility] Comment:Desirable HDL: great er than 40 mg/dL Note: This HDL assay may give artificially low results in patients with liver disease. Blood Venous blood specimen / Unknown 11/11/2024 10:49 AM EDT 11/11/2024 10:49 AM EDT Vazquez Louis [facility] LAB BLOOD ORDERABLES Final Resul t Performing Organization Address City/[facility]/ZIP Co de Phone Number [facility] [address] [place] [phone] [phone] * HPV E6/E7 RFLX BECCA 16 18/45 (02/07/2021 3:19 PM EDT) HPV 16 RNA [facility] HPV 18/45 RNA [facility] HPV E6 E7 ADD [facility] HPV mRNA E6/E7 rflx Not Detected Not Detected [facility] Comment: Methodology: Product Craftsman-Mediated Amplification This assay detects E6/E7 viral messenger RNA (mRNA) from 14 high-risk HPV types (16,18,31,33,35,39,45,51,52,56,58,59,66,68). The analytical performance characteristics of this assay have been determined by [employer]. The modifications have not been cleared or approved by the FDA. This assay has been validated pursuant to the CLIA regulations and is used for clinical purposes. For additional information, please refer to http://education.[employer]/faq/FYL343n5 (This link if provided for information/ educational purposes only.) THIS TEST WAS PERFORMED AT: [facility] [address] [place] [address] FLOOR,[place] [address] KARIE PEREZ MD 02/07/2021 3:19 PM EDT Giorgio Mock MD HISTORICAL/NON ORDERABLE LABS Fi nal Result [facility] [address] * Hm Pap Smear (02/07/2021) Estephanie Provider HEALTH MAINTENANCE Final Result from Last 3 Months or Most Recently Relevant to Health Maintenance Additional Health Concerns Active Problems Noted Date Diagnosed Date Help patients manage their type 2 diabetes 07/14 Patient has chronic kidney disease 07/14/2025 Patient has chronic kidney disease 07/21/2025 Patient has chronic kidney disease 07/22/2025 Patient has chronic kidney disease 07/22/2025 [facility] Care Teams Aerosol Line Operator Relationship Specialty Start Date End Date Vazquez Louis ANP [address] [place] [address] PCP - General Family Medicine 02/16/20
--- OUTSIDE RECORDS SUMMARY | 2025-08-03 14:34 | XMS_ITS | Encounter Summary ---
Author Organization [employer] Address 75 [facility] 7t [place] [address] Care Team Providers Care Dining Chair Seat Cushion Trimmer Name Role Phone Bernadine Ramos Primary Care Provider [phone] Reason for Visit * Reason Onset Date Comments Medication Question 11/27/2024 Encounter Details Date Type Department Care Team ([facility] st Contact Info) Description 11/27/2024 Telephone [facility] [address] [place] [address] Bernadine Ramos ANP [address] [place], [place] [phone] Medication Question Social History Tobacco Use Types [...] covered by the Insurance. Contact pt at [phone] documented in this encounter Plan of Treatment Upcoming Encounters Date Type Department Care Team (Late st Contact Info) Description 08/20/2025 2:15 PM EST Office Visit [facility] [address] [place] [address] Bernadine Ramos ANP [address] [place] [address] documented as of this encounter Visit Diagnoses Not on filedocumented in this encounter Additional Health Concerns Assessment Noted Time PHQ-9 Depression Total Score: 8 06/23/20 24 10:48 AM EDT documented as of this encounter Care Teams Dining Chair Seat Cushion Trimmer Relationship Specialty Start Date End Date Bernadine Ramos ANP [address] [place] [address] PCP - General Family Medicine 02/16/[address] [facility] 07/11/15 07/19/25 documented as of this encounter
--- OUTSIDE RECORDS SUMMARY | 2025-08-03 14:34 | XMS_ITS | Encounter Summary ---
Author Organization [employer] Address 75 [facility] 7t [place] [address] Care Team Providers Care Biomedical Equipment Support Specialist Name Role Phone Bernadine Ramos Primary Care Provider [phone] Encounter Details Date Type Department Care Team (Latest Contact Info) Description 07/14/2025 Results Follow-Up [facility] [address] [place] [address] Bernadine Ramos ANP [address] [place] [address] BI Mammogram Diagnostic Tomosynthesis Bilateral Social History [...] si tiene preguntas. Take care, Cu??Bernadine gan PROFESSOR OF ENVIRONMENTAL SCIENCE documented in this encounter Plan of Treatment Upcoming Encounters Date Type Department Care Team (Late st Contact Info) Description 08/20/2025 2:15 PM EST Office Visit [facility] [address] [place] [address] Bernadine Ramos ANP [address] [place] [address] documented as of this encounter Goals Goal [...] documented as of this encounter Care Teams Biomedical Equipment Support Specialist Relationship Specialty Start Date End Date Bernadine Ramos ANP [address] [place] [address] PCP - General Family Medicine 02/16/20 [facility] 07/11/15 07/19/25 documented as of this encounter
--- OUTSIDE RECORDS SUMMARY | 2025-08-03 14:34 | XMS_ITS | Encounter Summary ---
Author Organization [facility] Address [address] [place] [phone] Phone Care Team Providers Care Braze Operator Name Role Phone Austyn Lane MD Primary Care Provider [phone] Encounter Details Date Type Department Care Team (Late st Contact Info) Description 12/21/2011 Documentation [facility] Family Medicine [address] [place] [address] Family Medicine, Physician [address] [place], [place] [phone] Social History Tobacco Use Types Packs/Day Years [...] on filedocumented in this encounter Care Teams Braze Operator Relationship Specialty Start Date End Date Austyn Lane MD [address] [place] [address] [place] [address] PCP - General 04/12/17 11/14/22 documented as of this encounter
--- OUTSIDE RECORDS SUMMARY | 2025-08-03 14:34 | XMS_ITS | Encounter Summary ---
Author Organization [facility] Address [address] [place] [phone] Phone Care Team Providers Care Core Blower Operator Name Role Phone Austyn Lane MD Primary Care Provider [phone] Encounter Details Date Type Department Care Team (Late st Contact Info) Description 04/06/2013 Documentation [facility] [place] Family Medicine [address] [place] [address] Family Medicine, Physician [address] [place], [place] [phone] Social History Tobacco Use Types Packs/Day Years [...] on filedocumented in this encounter Care Teams Core Blower Operator Relationship Specialty Start Date End Date Austyn Lane MD [address] [place] [address] [place] [address] PCP - General 04/12/17 11/14/22 documented as of this encounter
--- OUTSIDE RECORDS SUMMARY | 2025-08-03 14:34 | XMS_ITS | Encounter Summary ---
Author Organization [employer] Address [address] [place] [address] Care Team Providers Care Travel Agency Manager Name Role Phone Bernadine Ramos Primary Care Provider [phone] Reason for Visit * Reason Comments Med Refill Encounter Details Date Type Department Care Team (Late st Contact Info) Description 03/21/2023 Refill [facility] [address] [place] [address] [phone] Bernadine Ramos ANP [address] [place] [address] [phone] Heartburn Social History Tobacco Use Types Packs/Day [...] Description 08/20/2025 2:15 PM EST Office Visit [facility] [address] [place] [phone] Bernadine Ramos ANP [address] [place], [place] [phone] documented as of this encounter Visit Diagnoses Diagnosis Heartburn documented in this encounter Additional Health Concerns Assessment Noted Time PHQ-9 Depression Total Score: 0 03/19/20 23 2:00 PM EDT documented as of this encounter Care Teams Travel Agency Manager Relationship Specialty Start Date End Date Bernadine Ramos ANP [address] [place] [address] PCP - General Family Medicine 02/16/20 [facility] 07/11/15 07/19/25 documented as of this encounter
--- OUTSIDE RECORDS SUMMARY | 2025-08-03 14:34 | XMS_ITS | Clinical Summary ---
Author Organization [facility] Address [address] [place] [phone] Phone Care Team Providers Care Sales Representative Groceries Name Role Phone Unavailable Primary Care Provider [...] complete this topic Procedures * Due to [place] state law, this organization might not be sharing sensitive test results. Procedure Name Priority Date/Time Associated Diagnosis Comments CHLAMYDIA AND GONORRHEA, AMPLIFIED Routine 08/08/2010 1:32 PM EST from Last 3 Months or Most Recently Relevant to Health Maintenance Results * Due to [place] state law, this organization might not be sharing sensitive test results. * Chlamydia and Gonorrhoea, Amplified (08/08/2010 1:32 PM EST) URINE CHLAMYDIA AMP PROBE NEGATIVE [facility] Comment: NO CHLAMYDIA TRACHOMATIS RNA DETECTED IN THIS PATIENT'S SAMPLE. (REFERENCE RANGE/NORMAL VALUE: NOT DETECTED) URINE GC AMP PROBE NEGATIVE [facility] Comment: NO NEISSERIA GONORRHOEAE RNA DETECTED IN THIS PATIENT'S SAMPLE. (REFERENCE RANGE/NORMAL VALUE: NOT DETECTED) NOTE: THIS TEST USES DATA PROCESSING CONTROL CLERK MEDIATED AMPLIFICATION METHOD TO DETECT rRNA FROM [...] OTHER AGENTS. 08/08/2010 1:32 PM EST Narrative [facility] - 08/08/2010 1:32 PM EST URINE CHLAMYDIA GC AMP PROBE Veronica Lux NP LAB MICROBIOLOGY - GENERAL OR DERABLES Final Result [facility] [address] [place] [phone], [place] from Last 3 Months or Most Recently Relevant to Health Maintenance
--- OUTSIDE RECORDS SUMMARY | 2025-08-03 14:34 | XMS_ITS | Encounter Summary ---
Author Organization [employer] Address [address] [place] [address] [address] [place] [address] Care Team Providers Care Toolmaker Name Role Phone Bernadine Ramos Primary Care Provider [phone] Encounter Details Date Type Department Care Team (Late st Contact Info) Description 05/29/2023 Orders Only [facility] [address] [place] [address] [phone] Provider, MD Estephanie Social History Tobacco Use [...] EST Office Visit [facility] [address] [place] [address] [phone] Bernadine Ramos ANP [address] [place], [place] [phone] documented as of this encounter Procedures Procedure [...] documented as of this encounter Care Teams Toolmaker Relationship Specialty Start Date End Date Bernadine Ramos ANP [address] [place] [address] PCP - General Family Medicine 02/16/20 [facility] 07/11/15 07/19/25 documented as of this encounter
--- OUTSIDE RECORDS SUMMARY | 2025-08-03 14:34 | XMS_ITS | Encounter Summary ---
Author Organization [employer] Address [address] [place] [address] [address] [place] [address] Care Team Providers Care Route Relief Driver Name Role Phone Bernadine Ramos Primary Care Provider [phone] Reason for Visit * Reason Onset Date Comments FYI 03/22/2023 Encounter Details Date Type Department Care Team ([facility] st Contact Info) Description 03/22/2023 Telephone [facility] [address] [place] [address] Bernadine Ramos ANP [address] [place] [address] FYI Social History Tobacco Use Types Packs/Day [...] - 03/22/2023 2:39 PM EDT Tc from [place] with [facility] stating will be renewing pt care of plan on March 27 will be seeing pt 5 x a week for medication. documented in this encounter Plan of Treatment Upcoming Encounters Date Type Department Care Team (Late st Contact Info) Description 08/20/2025 2:15 PM EST Office Visit [facility] [address] [place] [address] Bernadine Ramos ANP [address] [place] [address] documented as of this encounter Visit Diagnoses Not on filedocumented in this encounter Additional Health Concerns Assessment Noted Time PHQ-9 Depression Total Score: 0 03/19/20 23 2:00 PM EDT documented as of this encounter Care Teams Route Relief Driver Relationship Specialty Start Date End Date Bernadine Ramos ANP [address] [place] [address] PCP - General Family Medicine 02/16/20 [facility] 07/11/15 07/19/25 documented as of this encounter
== END 2025-08-03 13:36 | disposition home or self-care (01) ==
LOC: HO.RHES 12:38
PROVIDERS: PCP Nurse Practitioner Primary Care; Visit Provider Student in an Organized Health Care Education/Training Program
DX: M08.80 Other juvenile arthritis, unspecified site (principal); E03.9 Hypothyroidism, unspecified; R79.89 Other specified abnormal findings of blood chemistry; M25.50 Pain in unspecified joint
CPT/HCPCS: 99204

== ENCOUNTER 2025-08-05 13:06 | Outpatient (REF) | payer MEDICAID, SELFPAY ==
--- NOTE | ~2025-08-05 | XR_ITS ---
Exam: XR HAND 3 VIEWS BILATERAL, bilateral hand x-rays TECHNIQUE: AP, lateral, and ball-catcher views upper extremity, bilateral hands INDICATION: M25.50 - Pain in unspecified joint COMPARISON: Right hand from January 24, 2022 FINDINGS: RIGHT HAND: Joint spaces are preserved. There are no erosions. There is normal bone mineral density. There is a healed fracture involving the footprint of the ulnar collateral ligament at the base of the proximal phalanx of the first digit. LEFT HAND: Joint spaces are preserved. There are no erosions. There is normal bone mineral density. XR/XR Hand Bilat min 3v IMPRESSION: Right hand: Unremarkable Left hand: Unremarkable Electronically signed by: David Warner MD 08/05/2025 02:03 PM [facility]
--- NOTE | ~2025-08-05 | XR_ITS ---
EXAMINATION: XR SACROILIAC JOINTS CLINICAL INFORMATION: M25.50 - Pain in unspecified joint COMPARISON: CT on 05/03/2024 TECHNIQUE: 3 views of the sacroiliac joints FINDINGS: Minimal degenerative irregularity is noted in the bilateral SI joints, left greater than right. No definite erosions or bony fusion is seen. T-shaped IUD projects in the midline of the pelvis. XR/XR sacroiliac joint 1-2V IMPRESSION: Mild degenerative change, bilateral SI joints. IUD. Electronically signed by: David Warner MD 08/05/2025 01:59 PM [facility]
== END 2025-08-05 13:07 | disposition home or self-care (01) ==
LOC: HO.XRAY 13:06
PROVIDERS: PCP Nurse Practitioner Primary Care; Visit Provider Student in an Organized Health Care Education/Training Program
DX: M25.542 Pain in joints of left hand (principal); M25.541 Pain in joints of right hand; M53.3 Sacrococcygeal disorders, not elsewhere classified
CPT/HCPCS: 72200; 73130

== ENCOUNTER → 2025-08-05 13:11 | Outpatient (BNV) | payer MEDICAID, SELFPAY | PROVIDERS: PCP Nurse Practitioner Primary Care; Visit Provider Radiology Diagnostic Radiology | DX: M79.641 Pain in right hand (principal); M79.642 Pain in left hand; M16.0 Bilateral primary osteoarthritis of hip; Z97.5 Presence of (intrauterine) contraceptive device | CPT/HCPCS: 72200; 73130 ==